=== PATIENT | male | born 1970 | race Caucasian/White ===

== ENCOUNTER 2022-06-18 08:38 | Outpatient (CLI) | payer OTHER, SELFPAY ==
--- OUTSIDE RECORDS SUMMARY | 2022-06-18 08:41 | XMS_ITS | Encounter Summary ---
:1970 Author Organization [facility] Address [address] [place] [address] Care Team Providers Name Role Phone Unavailable Primary Care Provider Unavailable Reason for Visit Reason Comments Chest Pain Associated with pain in his left Flank area and nausea without emesis Encounter Details Date Type Department Care Team Description 08/25/2017 Emergency [place] Emergency Uri Owen Chest Wall Department Hardy Esquivel (Primary Dx) [address] [place] [phone] Social History Tobacco Use Types Packs/Day Years Used Date Smoking Tobacco: Never Smokeless Tobacco: Never Sex Assigned at Date Recorded Not on file documented as of this encounter Last Filed Vital Signs Vital Sign Reading Time Taken Comments Blood Pressure 126/85 08/25/2017 3:22 PM MEDICAL AIDE Pulse 63 08/25/2017 3:22 PM MEDICAL AIDE Temperature 37.2 ??C (99 ??F) 08/25/2017 3:22 PM MEDICAL AIDE Respiratory Rate 20 08/25/2017 3:22 PM MEDICAL AIDE Oxygen Saturation 97% 08/25/2017 3:15 PM MEDICAL AIDE Inhaled Oxygen Concentration - - Weight 102 kg (225 lb) 08/25/2017 12:41 PM MEDICAL AIDE Height 182.9 cm (6') 08/25/2017 12:41 PM MEDICAL AIDE Body Mass Index 30.52 08/25/2017 12:41 PM MEDICAL AIDE documented in this encounter Discharge Instructions Discharge InstructionsUri Owen M.D. - 08/25/2017 3:10 PM MEDICAL AIDE Return to the ED for Chest pain associated with shortness of breath or lightheadedness. CAL AIDE AttachmentsThe following attachments cannot be sent through Care Everywhere. Nonspecific Chest Pain, [id number] (Afghan)documented in this encounter Medications at Time of Discharge Medication Sig Dispensed Refills Start Date End Date albuterol (for_PROVENTIL Inhale 2 puffs. 0 2016 HFA,VENTOLIN HFA) 90 mcg/actuation inhaler amLODIPine (for_NORVASC) 5 Take 5 mg by mouth. 0 04/29/2017 mg tablet fluticasone (for_FLONASE) 50 2 sprays. 0 017 mcg/actuation nasal spray fluticasone-salmeterol Inhale 1 puff. 0 7 (for_ADVAIR DISKUS) 250-50 mcg/dose diskus inhaler lisinopril Take 20 mg by 0 05/27/2017 (for_PRINIVIL,ZESTRIL) 20 mg mouth. tablet MAGNESIUM ORAL Take 250 mcg by 0 mouth daily. methylphenidate HCl Chew 5 mg. 0 01/21/2015 (METHYLIN) 5 mg tablet,chewable sertraline (for_ZOLOFT) 50 Take 50 mg by 0 2015 mg tablet mouth. triamterene-hydroCHLOROthiaz Take by mouth. 0 yan (for_DYAZIDE) 37.5-25 mg per capsule documented as of this encounter ED Notes Uri Owen M.D. - 08/25/2017 1:00 PM CST SUBJECTIVE CHIEF COMPLAINT/REASON FOR VISIT Chest Pain (Associated with pain in his left Flank area and nausea without emesis) HISTORY OF PRESENT ILLNESS HPI Patient complains of nausea associated with some back pain starting this morning upon waking up around 0700 hours. By 8 o'clock he noted the pain was persisting in the back but the nausea had improved.He denies any associated shortness of breath no diaphoretic spells syncope or chest pain. Pain does radiate toward the right shoulder blade. There is no emesis no hematemesis or melena. Denies dysuria frequency or gross hematuria. Current medication list is reviewed. Past medical history notable for hypertension and history of hiatal hernia. Past surgeries: Status post Robert fundoplication for hiatal hernia repair. Status post partial colectomy for ruptured diverticulum. Status post appendectomy. Social history no smoking. Family history: Second-degree relatives with diabetes and heart disease. REVIEW OF SYSTEMS Constitutional: Negative for activity change, chills, diaphoresis, fatigue, fever and unexpected weight change. HENT: Negative for ear pain, hearing loss, nosebleeds, postnasal drip, sore throat and voice change. Eyes: Negative for pain, discharge and visual disturbance. Respiratory: Negative for cough, hemoptysis, chest tightness, orthopnea, shortness of breath, wheezing and stridor. Cardiovascular: Negative for chest pain, palpitations and leg swelling. Gastrointestinal: Positive for nausea. Negative for abdominal pain, anal bleeding, constipation, diarrhea and hematemesis. Endocrine: Negative for cold intolerance, heat intolerance, polydipsia, polyphagia and polyuria. Genitourinary: Negative for dysuria, enuresis, flank pain, frequency, hematuria and urgency. Musculoskeletal: Negative for arthralgias, joint swelling, myalgias and neck stiffness. Skin: Negative for itching, lesions, rash and wound. Allergic/Immunologic: Negative for environmental allergies, food allergies and immunocompromised state. Neurological: Negative for tremors, seizures, speech difficulty, weakness, numbness, headaches and loss of balance. Hematological: Negative for adenopathy. Does not bruise/bleed easily. Psychiatric/Behavioral: Negative for confusion, depression, hallucinations, homicidal ideas and substance abuse. The patient is not nervous/anxious. OBJECTIVE Initial Vitals [08/25/17 1238] Temperature Pulse Rate Heart Rate Resp Rate Blood Pressure SpO2 36.6 ??C 65 -- 20 123/80 100 % Pain Score 7 PHYSICAL EXAMINATION Constitutional: He appears well-developed and well-nourished. He appears not listless and not lethargic. No distress. HENT: Head: Normocephalic and atraumatic. Nose: Nose normal. No nasal discharge. Mouth/Throat: Oropharynx is clear and moist. Mucous membranes are dry. Eyes: Conjunctivae and EOM are normal. Pupils are equal, round, and reactive to light. Right eye exhibits no discharge. Left eye exhibits no discharge. Neck: Normal range of motion. Neck supple. No JVD present. No neck adenopathy. No tracheal deviationpresent. Cardiovascular: Normal rate, regular rhythm, S1 normal and S2 normal. Exam reveals no friction rub. Pulses are strong and palpable. No murmur heard.Capillary refill: takes less than 3 seconds, Pulmonary/Chest: Effort normal and breath sounds normal. There is normal air entry. No stridor. No tachypnea. No respiratory distress. He has no wheezes. He has no rales. He exhibits no retraction. Abdominal: Scaphoid and soft. Bowel sounds are normal. He exhibits no distension and no mass. There is no hepatosplenomegaly. There is no tenderness. There is no rebound and no guarding. No hernia. Musculoskeletal: He exhibits no edema, tenderness or deformity. Neurological: He has normal reflexes. No cranial nerve deficit. He exhibits normal muscle tone. Coordination normal. Skin: Skin is warm, dry, intact and normal color. He is not diaphoretic. Psychiatric: He has a normal mood and affect. His behavior is normal. Judgment and thought content normal. ASSESSMENT/PLAN Chest Pain: Noncardiac-musculoskeletal. Hypertension: Controlled. ED Course as of Aug 25 1506 Fatou Aug 25, 2017 1351 DX Chest AP or PA and Lateral 2 Views 1405 The patient's 1st past evaluation for chest and back pain is essentially negative having reviewed CBC, troponin, basic metabolic panel and hepatic profile, ECG and PA lateral chest x-ray. A repeattroponin and ECG after 90 minutes has been ordered. 1505 Second cardiac panel screen is negative. No new symptoms reported. Overall patient's risk for acute coronary syndrome is assessed as low probability. He is stable for discharge. Disposition: Patient is stable for discharge and also stable for use of nonsteroidal anti-inflammatory medication as needed for pain. He has previous prescription for this purpose. He is to follow up with his regular physician 7- 10 days if symptoms have not improved. Return to the emergency departmentfor uncontrolled chest pain, shortness of breath or weakness. Uri Owen M.D. 08/25/17 1508 CAL AIDE documented in this encounter Plan of Treatment Not on filedocumented as of this encounter Procedures Procedure Name Priority Date/Time Associated Comments Diagnosis TROPONIN T, 5TH STAT 08/25/2017 2:35 Results f or this GEN, P PM MEDICAL AIDE procedure are i n the results section. ECG STAT 08/25/2017 2:33 Results for this PM MEDICAL AIDE procedure are i n the results section. DX CHEST AP OR PA RAD - Semiurgent 08/25/2017 1:18 Res ults for this AND LATERAL 2 (Fast; most ED PM MEDICAL AIDE procedure ar e in VIEWS patients; some the results inpatients) section. ECG STAT 08/25/2017 12:55 Results for this PM MEDICAL AIDE procedure are i n the results section. TROPONIN T, STAT 08/25/2017 12:54 Results for this BASELINE, 5TH PM MEDICAL AIDE procedure are in GEN, P the results section. CBC WITH STAT 08/25/2017 12:54 Results for this DIFFERENTIAL, B PM MEDICAL AIDE procedure ar e in the results section. BASIC METABOLIC STAT 08/25/2017 12:54 Results for this PANEL, S/P PM MEDICAL AIDE procedure are i n the results section. HEPATIC FUNCTION STAT 08/25/2017 12:52 Results for this PANEL, S PM MEDICAL AIDE procedure are i n the results section. documented in this encounter Results Troponin T (08/25/2017 2:35 PM MEDICAL AIDE) athologist Signature Troponin T, S <0.01 <0.01 ng/mL 08/25/2017 [facility] 3:00 PM [facility] Comment: Biotin has been identified by the dana hogue as a potential interfering substance. ??Higher concentr ations of biotin may be found in multivitamins, hair/nail supple ments, and workout supplements. ??If the result does not [facility] clinical observations, repeat testing after patient refrains fr om the use of supplements for at least 12 hours. Specimen Anatomical Collection Method Collection Time Receive d Time (Source) Location / / Volume Laterality Blood (Blood, 08/25/2017 2:35 PM 08/25/20 17 2:39 Venous) MEDICAL AIDE PM MEDICAL AIDE Uri Owen M.D. LAB BLOOD ADD-ON Performing Organization Address City/State/ZIP Code Phon e Number [place] [id number] [place] [address] [facility] ECG 12 Lead (08/25/2017 2:33 PM MEDICAL AIDE) [facility] gist Method Time Signature Ventricular 56 BPM MUSE Rate ECG/Min [place] Interval 186 ms MUSE QRSD Interval 110 ms MUSE QT Interval 416 ms MUSE QTC Interval 401 ms MUSE P [place] 26 degrees MUSE R [place] 5 degrees MUSE T Wave [place] 33 degrees MUSE Clinical Sinus bradycardia MUSE Diagnosis Otherwise normal ECG When compared with ECG of 25-AUG-2017 12:55, No significant change was found Specimen Anatomical Collection Method Collection Time Receive d Time (Source) Location / / Volume Laterality 08/25/2017 2:33 PM 7 2:39 MEDICAL AIDE PM MEDICAL AIDE Narrative This result has an attachment that is no t available. Uri Owen M.D. ECG ORDERABLES Performing Organization Address City/State/ZIP Code Phon e Number MUSE MUSE NA DX Chest AP or PA and Lateral 2 Views (08/25/2017 1:18 PM MEDICAL AIDE) Anatomical Region Laterality Modality Chest N/A Digital Radiography Specimen (Source) Anatomical Collection Method Collection Time Re ceived Time Location / / Volume Laterality 08/25/2017 1:22 PM MEDICAL AIDE Impressions 08/25/2017 1:22 PM MEDICAL AIDE IMPRESSION: No active cardiopulmonary di sease. Narrative 08/25/2017 1:22 PM MEDICAL AIDE EXAM: DX CHEST AP OR PA AND LATERAL 2 VIEWS COMPARISON: None FINDINGS: Bony thorax is unremarkable. H eart size and pulmonary vascularity are within normal limits. Lungs are clear of infiltrates or effusions. Procedure Note Gigi Richmond Jr., M.D. - 2016 EXAM: DX CHEST AP OR PA AND LATERAL 2 EWS COMPARISON: None FINDINGS: Bony thorax is unremarkable. H eart size and pulmonary vascularity are within normal limits. Lungs are clear of infiltrates or effusions. IMPRESSION: No active cardiopulmonary di sease. Uri Owen M.D. IMG DIAGNOSTIC IMAGING PROCE [facility] ECG 12 Lead (08/25/2017 12:55 PM MEDICAL AIDE) [facility] Method Time Signature Ventricular 59 BPM MUSE Rate ECG/Min [place] Interval 180 ms MUSE QRSD Interval 108 ms MUSE QT Interval 408 ms MUSE QTC Interval 403 ms MUSE P [place] 33 degrees MUSE R [place] 29 degrees MUSE T Wave [place] 39 degrees MUSE Clinical Sinus bradycardia MUSE Diagnosis Otherwise normal ECG No previous ECGs available Specimen Anatomical Collection Method Collection Time Receive d Time (Source) Location / / Volume Laterality 08/25/2017 12:55 08/25/2017 1:31 PM MEDICAL AIDE PM MEDICAL AIDE Narrative This result has an attachment that is no t available. Uri Owen M.D. ECG ORDERABLES Performing Organization Address City/State/ZIP Code Phon e Number [place] NA Troponin T, Baseline (08/25/2017 12:54 PM MEDICAL AIDE) athologist Signature Troponin T, S <0.01 <0.01 ng/mL 08/25/2017 [facility] 1:32 PM [facility] Comment: Biotin has been identified by the dana hogue as a potential interfering substance. ??Higher concentr ations of biotin may be found in multivitamins, hair/nail supple ments, and workout supplements. ??If the result does not [facility] clinical observations, repeat testing after patient refrains fr om the use of supplements for at least 12 hours. Specimen Anatomical Collection Method Collection Time Receive d Time (Source) Location / / Volume Laterality Blood (Blood, 08/25/2017 12:54 08/25/2017 1:32 Venous) PM MEDICAL AIDE PM MEDICAL AIDE Uri Owen M.D. LAB BLOOD TROPONIN Performing Organization Address City/[facility]/ZIP Code Phon e Number [address] [address] [facility] CBC with Differential (08/25/2017 12:54 PM MEDICAL AIDE) athologist Signature Hemoglobin 14.6 13.2 - 08/25/2017 [facility] 16.6 g/dL 1:11 PM [facility] Hematocrit 42.8 38.3 - 08/25/2017 [facility] 48.6 % 1:11 PM [facility] Erythrocytes 4.67 4.35 - 08/25/2017 [facility] 5.65 1:11 PM [facility] x10(12)/L [facility] MCV 91.6 78.2 - 08/25/2017 [facility] 97.9 fL 1:11 PM [facility] RBC Distrib Width 12.8 11.8 - 08/25/2017 [facility] 14.5 % 1:11 PM [facility] Platelet Count 266 135 - 317 08/25/2017 [facility] x10(9)/L 1:[address] [facility] Leukocytes 6.4 3.4 - 9.6 08/25/2017 [facility] x10(9)/L 1:[address] [facility] Neutrophils 4.11 1.56 - 08/25/2017 [facility] 6.45 1:11 PM [facility] x10(9)/L [facility] Lymphocytes 1.47 0.95 - 08/25/2017 [facility] 3.07 1:11 PM MEDICAL AIDE HEALTH x10(9)/L [facility] Monocytes 0.65 0.26 - 08/25/2017 [facility] 0.81 1:11 PM MEDICAL AIDE [facility] x10(9)/L [facility] Eosinophils 0.11 0.03 - 08/25/2017 [facility] 0.48 1:11 PM [facility] x10(9)/L [facility] Basophils 0.04 0.01 - 08/25/2017 [facility] 0.08 1:11 PM [facility] x10(9)/L [facility] Specimen Anatomical Collection Method Collection Time Receive d Time (Source) Location / / Volume Laterality Blood (Blood, 08/25/2017 12:54 08/25/2017 1:05 Venous) PM MEDICAL AIDE PM MEDICAL AIDE Uri Owen M.D. LAB BLOOD ADD-ON Performing Organization Address City/State/ZIP Code Phon e Number [address] [address] [facility] (ABNORMAL) BMP (Basic Metabolic Panel) (08/25/2017 12:54 PM MEDICAL AIDE) P athologist Signature Potassium, S 4.8 3.6 - 5.2 08/25/2017 [facility] mmol/L 1:[address] [facility] Sodium, S 138 135 - 145 08/25/2017 [facility] mmol/L 1:31 PM [facility] Chloride, S 96 (L) 98 - 107 08/25/2017 [facility] mmol/L 1:31 PM [facility] Bicarbonate, S 28 22 - 29 08/25/2017 [facility] mmol/L 1:31 PM [facility] Anion Gap 14 7 - 15 08/25/2017 [facility] 1:31 PM [facility] BUN (Blood Urea 21 8 - 24 08/25/2017 [facility] Nitrogen), S mg/dL 1:31 PM [facility] Creatinine 1.15 0.74 - 08/25/2017 [facility] 1.35 mg/dL 1:31 PM [facility] eGFR 75 >=60 08/25/2017 [facility] Non-Black/Afric mL/min/BSA 1:32 PM [facility] EM- an [facility] Comment: ----ADDITIONAL INFORMATION---- Estimated GFR calculated using the 2009 CKD_EPI creatinine equation. eGFR Black/ 87 >=60 mL/min/BSA 08/25/2017 1:32 PM [facility] Comment: ----ADDITIONAL INFORMATION---- Estimated GFR calculated using the 2009 CKD_EPI creatinine equation. Calcium, Total, S 9.8 8.9 - 10.1 mg/dL 08/25/2017 1 :31 PM [facility] Glucose, S 97 70 - 140 mg/dL 08/25/2017 1:31 PM [facility] Specimen Anatomical Collection Method Collection Time Receive d Time (Source) Location / / Volume Laterality Blood (Blood, 08/25/2017 12:54 08/25/2017 1:05 Venous) PM [facility] PM MEDICAL AIDE Uri Owen M.D. LAB BLOOD ADD-ON Performing Organization Address City/State/ZIP Code Phon e Number [facility] [address] [place] [address] [facility] (ABNORMAL) Hepatic Function Panel (08/25/2017 12:52 PM MEDICAL AIDE) [facility] Method Time Signature Bilirubin, Total, S 0.8 <=1.2 08/25/2017 [facility] mg/dL 1:32 PM [facility] Bilirubin, Direct, S <0.2 0.0 - 0.3 08/25/2017 [facility] mg/dL 1:32 PM [facility] Aspartate 33 8 - 48 08/25/2017 [facility] Aminotransferase U/L 1:32 PM [facility] Alanine 58 (H) 7 - 55 08/25/2017 [facility] Aminotransferase U/L 1:32 PM [facility] Alkaline 44 (L) 45 - 115 08/25/2017 [facility] Phosphatase, S U/L 1:32 PM [facility] Albumin, S 4.7 3.5 - 5.0 08/25/2017 [facility] g/dL 1:32 PM [facility] Protein, Total, S 7.6 6.3 - 7.9 08/25/2017 [facility] g/dL 1:32 PM [facility] Specimen Anatomical Collection Method Collection Time Receive d Time (Source) Location / / Volume Laterality Blood (Blood, 08/25/2017 12:52 08/25/2017 1:06 Venous) PM MEDICAL AIDE PM MEDICAL AIDE Uri Owen M.D. LAB BLOOD ADD-ON Performing Organization Address City/State/ZIP Code Phon e Number [facility] [address] [place] [address] [facility] documented in this encounter Visit Diagnoses Diagnosis Pain Chest Wall - Primary documented in this encounter Administered Medications Inactive Administered Medications - up to 3 most recent administrations Medication Order MAR Action Action Date Dose Rate Site sodium chloride 0.9 % injection 10 Given 08/25/2017 12:51 PM MEDICAL AIDE 10 mL mL 10 mL, intravenous, As needed, line care, Starting on Fatou 08/25/17 at 1242, Peripheral Intravenous Catheter and Rapid Infusion Catheter, prior to blood sampling, post blood transfusion or post blood sampling sodium chloride 0.9 % injection 3 mL 3 mL, intravenous, As needed, line care, Starting on Fatou 17 at 1242, Prior to and following infusion and between multi ple consecutive infusions: sodium chloride 0.9 % injection sodium chloride 0.9 % injection 3 mL 3 mL, intravenous, Every 12 hours PRN, l ine care, Starting on Fatou 17 at 1242, Peripheral Intravenous Catheter and Rapi d Infusion Catheter, when no infusion to maintain patency documented in this encounter Active and Recently Administered Medications Times are shown in MEDICAL AIDE. PRN Medication Order 08/23/2017 08/24/2017 08/25/2017 sodium chloride 0.9 % injection 10 mL 1251 (Given - Provider: Carly Candelaria R.N.) 10 mL, intravenous, As needed, line care , Starting on Fatou 08/25/17 at 1242, Peripheral Intravenous Catheter and Rapid Infusion Catheter, prior to blood sampling, post blood transfusion or post blood sampling sodium chloride 0.9 % injection 3 mL 3 mL, intravenous, As needed, line care, Starting on Fatou 08/25/17 at 1242, Prior to and following infusion and between multiple consecutive infusions: sodium chloride 0.9 % injection sodium chloride 0.9 % injection 3 mL 3 mL, intravenous, Every 12 hours PRN, l ine care, Starting on Fatou 08/25/17 at 1242, Peripheral Intravenous Catheter and Rapid Infusion Catheter, when no infusion to maintain patency documented in this encounter
--- OUTSIDE RECORDS SUMMARY | 2022-06-18 08:41 | XMS_ITS | Encounter Summary ---
:1970 Author Organization [facility] Address [address] [place] [address] Care Team Providers Name Role Phone Unavailable Primary Care Provider Unavailable Reason for Visit Physical Therapy (Routine) - Canceled Specialty Diagnoses / Procedures Referred By Contact Refer red To Contact Diagnoses Pain Knee Right Adele Mcdonald P.A. [facility] Procedures PT Ongoing treatment [address] [place] [address] Referral ID Status Reason Start Date Expiration Date Visits V isits Requested Authorized [id number] Canceled 03/13/2021 09/18/2021 99 20 Encounter Details Date Type Department Care Team Description 04/29/2021 Clinical Support Department of Physical Adele Mcdonald, P.ASailaja [address] [place] [address] Pain Knee Right Medicine and David Mcintosh, P.T., D.P.T. Rehabilitation in [place], [place] [address] [place] [phone] Social History Tobacco Use Types Packs/Day Years Used Date Smoking Tobacco: Never Smokeless Tobacco: Never Alcohol Use Standard Drinks/Week Comments Yes 0 (1 standard drink = 0.6 oz pure 2 or m ore mixed drinks every alcohol) evening Alcohol Habits Answer Date Recorded How often do you have a drink Not asked containing alcohol? How many drinks containing alcohol do Not asked you have on a typical day when you are drinking? How often do you have six or more Not asked drinks on one occasion? Comment: 2 or more mixed drinks every 01/29/2019 evening Sex Assigned at Date Recorded Not on file documented as of this encounter Progress Notes David Mcintosh P.T., D.P.T. - 04/29/2021 4:45 PM CDT Physical Therapy Outpatient Treatment Note SUBJECTIVE Patient's Name: Hayden Mckay Referring Provider: Aura Roche Visit Diagnosis: 1. Pain Knee Right Reason for Referral: Right Knee Pain Onset Date: 03/31/21 Payor: [employer] / Plan: [employer] OPEN ACCESS PLUS / Product Type: PPO / PT Next Certification Date: 07/01/21 Epic Visit Count: 6 Patient comments: patient did not have any instances loss of sensation in his right leg following last session. He was able to walk 2-1/2 miles. He is noticing the increases in strength and his recovery time following sessions has decreased. Contact monitoring: PPE used during therapy: Therapist was wearing the following PPE throughout entire session: surgicalmask Patient was wearing a mask during therapy session: yes OBJECTIVE Pain: 0/10 Observation/Inspection: Patient continues to have bilateral externally rotated hips during gait. Ortho Exam Outcome Measures: no formal outcome measure taken. TREATMENT Treatment today consisted of: Therapeutic Exercise: elliptical: Resistance 5 7 minutes Hip adduction: 7.5 plates 30 reps Hip abduction: 7 plates 30 reps Leg extension: 6 plates 30 reps Leg curl: 6 plates 30 reps Leg press: 7.5 plates 30 reps Single leg press: 5 plates 30 reps RDL: 15 lbs 20 reps Rear foot elevated split squat: 10 reps Box Jumps: 20 inch box 10 reps Run and turn: 30 ft x 2 Karaoke: 20 ft x 4 Shuffle: 20 ft x 6 Single Leg Squat: 10 reps Home Exercise Program/Education: No changes made to HEP. Pt reports good compliance with his HEP. Assessment Clinical Impression: Patient continues to demonstrate increased strength. He is able to tolerate increased activity with no increase in pain. He did have loss of sensation at the end of the session today. Discussed the potential cause if it is a cumulation of entire session or the more lateral movements performed. Screened his low back with a quadrant test and results were negative. After the feelingof sensation came had patient lumbar extend and lumbar flex with no relief in symptoms. Patient is appropriate to physical therapy to increase strength. Functional Goals and Timeframes: PT Goal #1: Patient will be able to walk 2 miles with 0/10 pain to return to golfing and outdoor walks. PT Goal #1 Date: 07/01/21 PT Goal #2: Patient will increase functional score to greater than 90%. PT Goal #2 Date: 07/01/21 PT Goal #3: Patient will be able to workout 4 times per week with 0/10 pain in order to increase participation in activities of enjoyment. PT Goal #3 Date: 07/01/21 PT Goal #4: Patient will report 0/10 pain to increase activity. PT Goal #4 Date: 07/01/21 Plan Plan for next session: reverse order of session start with outside agility work and end with weights. Time Spent with Patient Therapeutic Exercise (min): 42 min Time Calculation Total Timed Units (min): 42 min Total Treatment Time (min): 42 min David Mcintosh P.T., D.P.T. Department of Physical Medicine and Rehabilitation in [address] [address] Dept: [phone] documented in this encounter Plan of Treatment Not on filedocumented as of this encounter Visit Diagnoses Diagnosis Pain Knee Right documented in this encounter
--- OUTSIDE RECORDS SUMMARY | 2022-06-18 08:41 | XMS_ITS | Encounter Summary ---
:1970 Author Organization [facility] Address [address] [place] [address] Care Team Providers Name Role Phone Unavailable Primary Care Provider Unavailable Reason for Visit Physical Therapy (Routine) - Canceled Specialty Diagnoses / Procedures Referred By Contact Refer red To Contact Diagnoses Pain Knee Right Adele Mcdonald P.A. [facility] Procedures PT Ongoing treatment [address] [place] [address] Referral ID Status Reason Start Date Expiration Date Visits V isits Requested Authorized [id number] Canceled 03/13/2021 09/18/2021 99 20 Encounter Details Date Type Department Care Team Description 04/06/2021 Clinical Support Department of Physical Adele Mcdonald, P.ASailaja [address] [place] [address] Pain Knee Right Medicine and David Mcintosh, P.T., D.P.T. Rehabilitation in [place], [place] [address] [place] [phone] Social History Tobacco Use Types Packs/Day Years [...] this encounter Progress Notes David Mcintosh P.T., CaesarPSailajaT. - 04/06/2021 9:30 AM CDT Physical Therapy Outpatient Treatment Note SUBJECTIVE Patient's Name: Hayden Mckay Referring Provider: Aura Roche Visit Diagnosis: 1. Pain Knee Right Reason for Referral: Right Knee Pain Onset Date: 03/31/21 Payor: [employer] / Plan: [employer] OPEN ACCESS PLUS / Product Type: PPO / PT Next Certification Date: 07/01/21 Epic Visit Count: 2 Patient comments: Patient is having no knee pain or discomfort today. He was moving furniture up anddown stairs all weekend. This did not increase his pain. He brought in the MRI report today for review. Contact monitoring: PPE used during therapy: Therapist was wearing the following PPE throughout entire session: surgicalmask Patient was wearing a mask during therapy session: yes OBJECTIVE Pain: 0/10 Observation/Inspection: No gait abnormalities present. Ortho Exam TREATMENT Treatment today consisted of: Therapeutic Exercise: Octane Bike: Resistance 6 5 minutes Hip adduction: 5.5 plates 30 reps Hip abduction: 5 plates 30 reps Leg extension: 4 plates 30 reps Leg curl: 4 plates 30 reps Leg press: 5.5 plates 30 reps Single leg press: 3.5 plates 30 reps Squats: 20 reps Single leg stance on BOSU: 30 seconds x2 each leg Heel raise: 30 reps hamstring ball curl: Blue ball 25 reps Hamstring stretch: 10 second hold 5 reps Quad stretch: 10 second hold 5 reps ITB band stretch: 10 second hold 5 reps Access Code: [email or web address] URL: [email or web address] Date: 04/06/2021 Prepared by: Fredrick Crowell Home Exercise Program/Education: Added hamstring stretch, Quad stretch and ITB band stretch to home program. Pt reports good compliance with his HEP. Assessment Clinical Impression: Patient is progressing well. He did not have any discomfort over the weekend heeven with increased activity. Was able to progress the patient with weight machines today. Patient tolerated the exercises well with no increase in pain or discomfort. He was worried about feeling paindiscomfort in his knee later today and throughout the week. Will continue to monitor next session. Patient is appropriate for continued skilled physical therapy to increase strength. Functional Goals [...] Date: 07/01/21 Plan Plan for next session: Continue to progress lower extremity strengthening and weights as able. Consider adding lunges, single leg squats and split squats. Time Spent with Patient Therapeutic Exercise (min): 41 min Time Calculation Total Timed Units (min): 41 min Total Treatment Time (min): 41 min David Mcintosh P.T., D.P.T. Department of Physical Medicine and Rehabilitation in [address] [address] Dept: [phone] documented in this encounter Plan of Treatment Not on filedocumented as of this encounter Visit Diagnoses Diagnosis Pain Knee Right documented in this encounter
--- OUTSIDE RECORDS SUMMARY | 2022-06-18 08:41 | XMS_ITS | Encounter Summary ---
:1970 Author Organization [facility] Address [address] [place] [address] Care Team Providers Name Role Phone Unavailable Primary Care Provider Unavailable Encounter Details Date Type Department Care Team Description 07/11/2013 Hospital Encounter [facility] Crystal Robles P.A.-C., [place] Social History Tobacco Use Types Packs/Day Years Used Date Smoking Tobacco: Never Assessed Sex Assigned at Date Recorded Not on file documented as of this encounter Last Filed Vital Signs Vital Sign Reading Time Taken Comments Blood Pressure 122/80 07/11/2013 7:01 PM CDT Pulse 72 07/11/2013 7:01 PM CDT Temperature - - Respiratory Rate - - Oxygen Saturation - - Inhaled Oxygen Concentration - - Weight 97.2 kg (214 lb 4.6 oz) 07/11/2013 7:01 PM CDT Height 185.4 cm (6' 0.99) 07/11/2013 7:01 PM CDT Body Mass Index 28.28 07/11/2013 7:01 PM CDT documented in this encounter Progress Notes Margot Robles P.A.-C. - 07/11/2013 6:55 PM CDT [id number] CHIEF COMPLAINT/REASON FOR VISIT Dog bite. MEDICATIONS Medication and allergies review documentation in [employer]. HISTORY OF PRESENT ILLNESS Patient comes in today with a dog bite on his right hand and left fifth digit, happened about 30 minutes ago. He did wash his hands real well and then came in today to see if there was anything that needed to be done. It is his dog that bit him. It is in new dog. He says the dog does not know him too well yet. They just gave him his immunizations a couple of weeks ago so he is up-to-date on that and patient is also up to date on his tetanus shot. He has 1 small puncture on the dorsal aspect of the right hand and on the left fifth digit, very small one. He is otherwise feeling well. SYSTEMS REVIEW CONSTITUTIONAL: Negative for fatigue or fever. SKIN: He does have the dog bite on the right hand dorsal aspect and fifth digit dorsal aspect. LYMPH: There is no red streaking. PAST MEDICAL/SURGICAL HISTORY He is generally healthy. He does have some asthma issues and has an Advair Diskus. PHYSICAL EXAMINATION Psych alert and oriented. No acute distress. EXTREMITIES: The left fifth digit he has basically a scratch from a tooth on the dorsal aspect of the finger between the DIP joint and the nail. He has complete range of motion of the finger. Temperature, circulation, motion and sensitivity is intact. That is no longer bleeding. The dorsal aspect of the right hand has a 1cm superficial partial thickness scratch from a tooth. It is pleasantly not bleeding either. He does have a little bit of swelling underneath the bite. He does however have completerange of motion of the hand and fingers. Temperature circulation, motion and sensitivity to all 5 fingers is intact. SKIN: General skin color is pink, warm and dry. IMPRESSION/REPORT/PLAN Minor dog bite right hand, left fifth digit. PLAN: I would like him to soak his hands in warm soapy water twice a day for the next couple of daysand then dry off the skin and apply clean Band-Aids to these 2 area. We will start him on Augmentin 875mg 1 by mouth 2 times a day for 10 days. He is to follow up for any further concerns, although I think we have him protected pretty well with the Augmentin. Patient is in agreement with this plan. Aura Betts/valentina Electronically Signed By: MARGOT ROBLES PA-C On: 07/12/2013 02:33 PM Source: [facility] MHSDOL[facility]IS[facility] Document Id: [id number] documented in this encounter Miscellaneous Notes Miscellaneous - Margot Robles P.A.-C. - 07/11/2013 7:18 PM CDT Ambulatory Depart Summary [facility] - [address] [address] Visit Information Name: DEEHAYDEN RICKS [facility] Number: [id number] Visit Date: 07/11/2013 19:18:53 Attending Provider: MARGOT ROBLES PA-C Primary Care Provider: HAYDEN AMARO has been given the following list of medications: Your Medications It is important to take your medications as directed. Use a pill box or chart to help remind you to take your medications. Please let your doctor or nurse know if you have problems taking your medications. Medication/Strength Dose Route Frequency Indications/Special Instructions/Comments/Notes amoxicillin-clavulanate (Augmentin 875 mg-125 mg oral tablet) 1 tab(s) Oral two times a day for 10 Days fluticasone-salmeterol (Advair Diskus 250 mcg-50 mcg inhalation powder) 1 puff(s) Inhalation two times a day Attention: If you have any medications at home that are not on this list, DO NOT take them until youcontact your provider for clarification. Additional Information: Source: [facility] POWERCHART Document Id: [id number] Miscellaneous - Margot Robles P.A.-C. - 07/11/2013 7:18 PM CDT Ambulatory Patient Summary [facility] - [address] [address] Visit Information Name: STEVIEHAYDEN MENJIVAR [facility] Number: [id number] Current Date: 07/11/2013 19:18:53 Physicians Attending Provider: MARGOT ROBLES PA-C Primary Care Provider: HAYDEN AMARO has been given the following list of follow-up instructions, medication list, and patient education materials: Follow-up Instructions Your Medications Here is a list of your medications. It is important to take your medications as directed. Use a pillbox or chart to help remind you to take your medications. Please let your doctor or nurse know if you have problems taking your medications. Medication/Strength Dose Route Frequency Indications/Special Instructions/Comments/Notes amoxicillin-clavulanate (Augmentin 875 mg-125 mg oral tablet) 1 tab(s) Oral two times a day for 10 Days fluticasone-salmeterol (Advair Diskus 250 mcg-50 mcg inhalation powder) 1 puff(s) Inhalation two times a day Attention: If you have any medications at home that are not on this list, DO NOT take them until youcontact your provider for clarification. Your Allergies & Intolerances Substance Reaction Symptoms Category Comments No Known Medication Allergies Drug Your Problem List Problem Status Onset Comments No Problems found Your Upcoming Appointments Date Time Location Reason Provider No Appointments found Attention: Contact your local Clinic if further appointment detail needed. Your Goals/Additional instructions: Source: [facility] POWERCHART Document Id: [id number] Miscellaneous - Toño Abraca, C.M.A. - 07/11/2013 7:01 PM CDT Adult Chicken Boner Intake/History Adult Chicken Boner Intake/History Entered On: 07/11/2013 19:05 CDT Performed On: 07/11/2013 19:01 CDT by TOÑO ABARCA Intake Chief Complaint : dog bite on R hand, and L 5 digit Onset of Symptoms : today, 30 min ago Temperature Core : 36.8 DegC(Converted to: 98.2 DegF) Peripheral Pulse Rate : 72 /min Systolic Blood Pressure : 122 mmHg Diastolic Blood Pressure : 80 mmHg NIBP Mean : 94 mmHg Height : 185.4 cm(Converted to: 6 ft 1 inch(es), 72.99 inch(es)) Actual Weight : 97.2 kg(Converted to: 214 lb 5 oz) Dosing Weight Clinic : 97.2 kg Clinic BSA : 2.24 Body Mass Index : 28.28 kg/m2 TOÑO ABARCA - 07/11/2013 19:01 CDT General Info Languages : Kyrgyz TOÑO ABARCA - 07/11/2013 19:01 CDT Subjective Pain Symptoms : Yes TOÑO ABARCA - 07/11/2013 19:01 CDT Pain Pain Assessment Grid Pain 1 Location : Hand Laterality : Bilateral (Comment: R hand, and L pinkie [TOÑO ABARCA - 07/11/2013 19:01 CDT] ) TOÑO ABARCA - 07/11/2013 19:01 CDT Dependent Habits Tobacco Use/Currently Using : No Exposure to Tobacco Smoke : Care provider denies smoking in home Smoking Status : Never smoker TOÑO ABARCA - 07/11/2013 19:01 CDT Tobacco Use Grid Last Use : never TOÑO ABARCA - 07/11/2013 19:01 CDT [facility]: [facility]CH[facility] Document Id: [id number] CDT!30 documented in this encounter Plan of Treatment Not on filedocumented as of this encounter Visit Diagnoses Not on filedocumented in this encounter
--- OUTSIDE RECORDS SUMMARY | 2022-06-18 08:41 | XMS_ITS | Encounter Summary ---
:1970 Author Organization [facility] Address [address] [place] [address] Care Team Providers Name Role Phone Unavailable Primary Care Provider Unavailable Reason for Visit Physical Therapy (Routine) - Closed Specialty Diagnoses / Procedures Referred By Contact Refer red To Contact Diagnoses Pain Knee Right Adele Mcdonald, PElizabeth [facility] Procedures PT Evaluate and treat [address] [place] [address] Referral ID Status Reason Start Date Expiration Date Visits Requ ested Visits Authorized [id number] Closed 03/13/2021 03/13/2022 1 1 Encounter Details Date Type Department Care Team Description 03/31/2021 Comprehensive Visit Department of Physical Ailab Santino chapin M.D. [address] [place] [address] Pain Knee Right Medicine and David Mcintosh, P.T., D.P.T. (Primary Dx) Rehabilitation in [place], [place] [address] [place] [phone] Social History Tobacco Use Types Packs/Day Years [...] on file documented as of this encounter Consult Notes David Mcintosh P.T., CaesarPSailajaT. - 03/31/2021 1:30 PM CDT Physical Therapy Outpatient Evaluation/Treatment Physician Signature: Date Print Name: Time: By co-signing this note, the provider certifies the therapy being provided to this patient is reasonable and necessary for the diagnosis or treatment of this patient. SUBJECTIVE Patient's Name: Hayden Mckay Referring Provider: Aura Roche Visit Diagnosis: 1. Pain Knee Right Reason for Referral: Right Knee Pain Onset Date: 03/31/21 Payor: RHONDA / Plan: Metaps OPEN ACCESS PLUS / Product Type: PPO / Epic Visit Count: 1 PERTINENT MEDICAL / SURGICAL HISTORY: Patient Active Problem List Diagnosis ??? Asthma NOS Past Surgical History: Procedure Laterality Date ??? APPENDECTOMY ??? PARTIAL RESECTION OF COLON 2015 ??? VASECTOMY Diagnostic Tests: MRI Hayden Mckay is a 50 y.o. male who presents to outpatient physical therapy for evaluation. Hissymptoms consist of: 1. Pain 2. Difficulty with stairs 3. Unable to sit for extended periods of time 4. Unable to ambulate for extended periods of time Overall he reports his status remains the same. History of Present Illness:Patient is a pleasant 50 year old male presenting to Physical Therapy with right knee pain. He tore both meniscus 5 years ago and has dealt with on and off flare up pain since then. Recently, pain has been constant for about a month. He went the doctor and received an MRI which showed his tear had increased. When the incident initially occurred his knee was swollen and he couldn't perform a straught leg raise. The swelling has gone down but pain persists. His knee will continue to become stiff and it cause him difficulty driving. He will require assistance to move his knee to and from the gas and break while driving during a flare up. Notices pain more when he is walkingand sitting for prolonged periods. Stairs have been difficulty. Ibuprofen relieves pain. He enjoys working out but has not been able to due to pain. He usually walks a mile or 2 but pain has limited this. He has back pain but believes it is due to him overprotecting his right knee. Cannot perform lunges or burpees without pain. He has no history of surgeries in his hips, knee or ankles. He did sprainhis right ankle in 2015. 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 Lives at home with his and 2 daughters. Has 2 separate flights of 12 steps. 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 Aggravating Factors: Sitting and standing for long periods of time. Stairs, lunges and burpees. Relieving Factors: Rest, ibuprofen. 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 Contact monitoring: PPE used during therapy: Therapist was wearing the following PPE throughout entire session: surgicalmask Patient was wearing a mask during therapy session: yes OBJECTIVE REVIEW OF SYSTEMS History obtained from the patient PHYSICAL EXAM Pain: Pain Assessment Pain Assessment: 0-10 Numeric Pain Intensity Scale Pain Score: 4 Pain Type: Acute pain Pain Location: Knee Pain Orientation: Right Observation/Inspection: When standing patient has increased external rotation from his hips. Knees tend to go into valgus positioning with squats and lunges. Gait/Stairs: No gait abnormalities noted. Valgus knee movement with stairs Palpation: No increased tenderness to palpation and no increased muscle tone noted. Range of Motion: AROM Assessment AROM Assessment: LLE RLE AROM (degrees) R Knee Flexion 0-140: 140 R Knee Extension 0-130: 0 LLE AROM (degrees) L Knee Flexion 0-140: 140 L Knee Extension 0-130: 0 Strength:Strength Assessment Strength Assessment: LLE RLE Strength R Hip Flexion: 4/5 R Hip Extension: 4/5 R Hip ABduction: 4/5 R Hip ADduction: 5/5 R Knee Flexion: 5/5 R Knee Extension: 4/5 R Ankle Dorsiflexion: 4/5 R Ankle Plantar Flexion: 5/5 LLE Strength L Hip Flexion: 4/5 L Hip Extension: 4/5 L Hip ABduction: 4/5 L Hip ADduction: 5/5 L Knee Flexion: 5/5 L Knee Extension: 5/5 L Ankle Dorsiflexion: 5/5 L Ankle Plantar Flexion: 5/5 Special Tests: Valgus Stress Test: Negative Varus Stress Test: Negative Neptali's Test: Negative Bounce Home: Negative Ortho Exam Outcome Measures: Measures - Tools Knee Injury and Osteoarthritis Outcome Score Joint Replacement (KOOS JR) Stiffness How severe is your knee stiffness after first wakening in the morning?: Mild Pain Twisting/pivoting on your knee: Moderate Straightening knee fully: Mild Going up or down stairs: Moderate Standing upright: None Function, daily living Rising from sitting: Mild Bending to floor/spanish moss picker an object: Mild Scores Raw summed score: 8 Total Interval Score: 65.994 Interpretation of scores Scores are transformed to a 0-100 scale, with zero representing extreme knee problems and 100 representing no knee problems as common in orthopaedic scales and generic measures. Scores between 0 and 100 represent the percentage of total possible score achieved. Cognition Arousal/Alertness: Appropriate responses to stimuli Attention: Addressed, no concerns noted Safety/Judgment: Addressed, no concerns noted TREATMENT Treatment today consisted of: Therapeutic Exercise: Knee Extension: Green Theraband 20 reps Lateral Band Walks: 30 steps Forward and Backward Band Walks: 30 steps Step Up ascendin reps Step Up Descendin reps Access Code: [email or web address] URL: [email or web address] Date: 03/31/2021 Prepared by: Fredrick Crowell Home Exercise Program/Education: Home exercise program given consisting of exercises listed above. Assessment Clinical Impression: Mr. Mckay presents to physical therapy with signs and symptoms consistent with Right knee pain. Impairments: Pain and slight lower extremity weakness. Functional deficits: Difficulty with stairs, prolonged ambulation and prolonged standing. Difficultywith workouts. Rehab Potential: Mr. Mckay has Excellent potential to achieve established physical therapy goalswithin the time frame outlined below, provided he actively participates in his physical therapy treatment plan and home program. Comorbid Conditions: None Personal Factors: Age Clinical Presentation: Stable Examination elements: 1-2 Clinical Decision Making: Low complexity clinical decision making Functional Goals and Timeframes: PT Outpatient Goals PT Goal #1: Patient will be able [...] activity. PT Goal #4 Date: 07/01/21 Plan Mr. Mckay was educated regarding evaluative findings, diagnosis, prognosis, potential risks and benefits of rehabilitation interventions. A collaborative effort was used to establish goals and planof care. He was informed of his right to make decisions regarding his care, including refusal of examination or treatment or selection of services from another provider if desired. The treatment plan may be progressed or modified based upon his response to treatment. Physical Therapy Attestation Statement: Patient agrees with the plan of care and goals. Treatment Plan: Plan: Plan of care initiated Start of Plan of Care: 03/31/2021 PT Next Certification Date: 07/01/21 Number of Visits:6 visits PT Duration: 90 days PT Frequency: PT Frequency: 2 times per week Treatment interventions may include: Treatment/Interventions: Therapeutic exercise, Therapeutic functional activity, Neuromuscular re-education Plan for next session: Add hamstring and quad stretches to home program. Progress to closed chain single leg lunges, split squats and reverse lunges as able. Add weight machines in gym. Elliptical. Time Spent with Patient PT Evaluation (min): 32 min Therapeutic Exercise (min): 19 min Time Calculation Total Timed Units (min): 19 min Total Treatment Time (min): 51 min David Mcintosh P.T., D.P.T. Department of Physical Medicine and Rehabilitation in [address] [address] Dept: [phone] documented in this encounter Plan of Treatment Not on filedocumented as of this encounter Visit Diagnoses Diagnosis Pain Knee Right - Primary documented in this encounter
--- OUTSIDE RECORDS SUMMARY | 2022-06-18 08:41 | XMS_ITS | Encounter Summary ---
:1970 Author Organization [facility] Address [address] [place] [address] Care Team Providers Name Role Phone Unavailable Primary Care Provider Unavailable Encounter Details Date Type Department Care Team Description 09/04/2012 Hospital Encounter HX NO MAPPING Jo Richardson F.NSamy [address] [place], [place] [address] (Wo rk) Social History Tobacco Use Types Packs/Day Years Used Date Smoking Tobacco: Never Assessed Sex Assigned at Date Recorded Not on file documented as of this encounter Plan of Treatment Not on filedocumented as of this encounter Procedures Procedure Name Priority Date/Time Associated Diagnosis Comme nts RAPID STREP A Routine 09/04/2012 7:37 PM Results for this SCREEN MINING SPECULATOR procedure are i n the results section. documented in this encounter Results Rapid Strep A Screen (09/04/2012 7:37 PM MINING SPECULATOR) [facility] Method Time Signature HXRapid Strep POWERCHART Confirmation HXPre Negative for POWERCHART Group A Strep by culture. HXFinal Negative for POWERCHART Group A Strep by culture. Specimen (Source) Anatomical Collection Method Collection Time Re ceived Time Location / / Volume Laterality Throat 09/04/2012 7:37 PM MINING SPECULATOR Jo Richardson F.N.PSailaja LAB MICROBIOLOGY - GENERAL O RDERABLES Performing Organization Address City/State/ZIP Code Phon e Number POWERCHART documented in this encounter Visit Diagnoses Not on filedocumented in this encounter
--- OUTSIDE RECORDS SUMMARY | 2022-06-18 08:41 | XMS_ITS | Encounter Summary ---
:1970 Author Organization [facility] Address [address] [place] [address] Care Team Providers Name Role Phone Unavailable Primary Care Provider Unavailable Reason for Visit Reason Onset Date Comments Outpatient COVID-19 Testing 05/15/2020 Encounter Details Date Type Department Care Team Description 05/15/2020 External Outreach Department of [facility] (Primary [place], C.N.P., D.N.P. Dx) [place] [address] [address] [facility] [address] [place] [phone] Social History Tobacco Use Types Packs/Day Years [...] documented as of this encounter Progress Notes Patricia Pierre R.MElizabeth - 05/15/2020 10:09 AM CDT Encounter created for the drive-through COVID-19 testing. documented in this encounter Plan of Treatment Not on filedocumented as of this encounter Procedures Procedure Name Priority Date/Time Associated Diagnosis Comme nts SARS CORONAVIRUS-2 Routine 05/15/2020 10:46 AM Infection Upper Results for this RNA, V CDT Respiratory procedure are i n the results section. documented in this encounter Results SARS Coronavirus-2 RNA, V Symptomatic (05/15/2020 10:46 AM CDT) [facility] Method Time Signature SARS-CoV-2 Swab, 05/15/2020 [facility] Specimen Nasopharynx 11:01 PM Source CDT SARS CoV-2 Undetected Undetected 05/15/2020 [facility] RNA, TMA 11:01 PM CDT Comment: SARS-CoV-2 RNA absent. This result does not rule out COVID-19 in the patient, as the sensitivity of the test depends o n the timing of the specimen collection and the quality of the specim en. Result should be correlated with patient's history and clinical presentat ion. ----ADDITIONAL INFORMATION---- This test is performed using the Aptima SARS-CoV-2 assay ([employer] which has received Emergency Use Authori zation (EUA) by the U.S. Food and Drug Administration. Fact sheets for this Emergency Use Autho rization (EUA) assay can be found at the following links: For Healthcare Providers: https://www.fd a.gov/media/676206/download For Patients: https://www.fda.gov/media/ 635053/download Specimen Anatomical Collection Method Collection Time Receive d Time (Source) Location / / Volume Laterality Varies 05/15/2020 10:46 05/15/2020 3:25 (Nasopharynx) AM CDT PM CDT Moira Lay APRN, C.N.P., D.N.P. LAB [facility] OLOGY - GENERAL ORDERABLES Performing Organization Address City/State/ZIP Code Phon e Number [facility]- [address] [place] [id number] [place] [address] [address] documented in this encounter Visit Diagnoses Diagnosis Infection Upper Respiratory - Primary documented in this encounter Additional Health Concerns Infection Onset Date Last Indicated Resolved Time COVID19 Pending 05/15/2020 05/15/2020 05/15/2020 11:01 PM CDT documented as of this encounter
--- OUTSIDE RECORDS SUMMARY | 2022-06-18 08:41 | XMS_ITS | Encounter Summary ---
:1970 Author Organization [facility] Address [address] [place] [address] Care Team Providers Name Role Phone Unavailable Primary Care Provider Unavailable Encounter Details Date Type Department Care Team Description 12/19/2020 Orders Only [facility] Eliecer Chiu Jr., M.D. [address] [place], [place] [address]andrés [place] [phone] (Wo rk) Social History Tobacco Use Types [...]
--- OUTSIDE RECORDS SUMMARY | 2022-06-18 08:41 | XMS_ITS | Encounter Summary ---
:1970 Author Organization [facility] Address [address] [place] [address] Care Team Providers Name Role Phone Unavailable Primary Care Provider Unavailable Reason for Visit Physical Therapy (Routine) - Canceled Specialty Diagnoses / Procedures Referred By Contact Refer red To Contact Diagnoses Pain Knee Right Adele Mcdonald P.A. [facility] Procedures PT Ongoing treatment [address] [place] [address] Referral ID Status Reason Start Date Expiration Date Visits V isits Requested Authorized [id number] Canceled 03/13/2021 09/18/2021 99 20 Encounter Details Date Type Department Care Team Description 05/06/2021 Clinical Support Department of Physical Adele Mcdonald, P.ASailaja [address] [place] [address] Pain Knee Right Medicine and Sherron Paul, P.T., D.P.T. Rehabilitation in [place], [place] [address] [place] [phone] Social History Tobacco Use Types Packs/Day Years [...] documented as of this encounter Progress Notes Sherron Paul P.T., D.P.T. - 05/06/2021 4:45 PM CDT Physical Therapy Outpatient Treatment Note SUBJECTIVE Patient's Name: Hayden Mckay Referring Provider: Aura Roche Visit Diagnosis: 1. Pain Knee Right Reason for Referral: Right Knee Pain Onset Date: 03/31/21 Payor: thesweetlink / Plan: thesweetlink OPEN ACCESS PLUS / Product Type: PPO / PT Next Certification Date: 07/01/21 Epic Visit Count: 7 Patient comments: Patient has no had any increased pain or discomfort following last session. He didhave decreased sensation following last session and that resolved on it own later that evening. He has no been as active this week with walking. Contact monitoring: PPE used during therapy: Therapist was wearing the following PPE throughout entire session: surgicalmask and eye protection Patient was wearing a mask during therapy session: yes OBJECTIVE Pain: 0/10 Observation/Inspection: No acute change to patient gait. Ortho Exam Outcome Measures: No formal outcome measure taken today. TREATMENT Treatment today consisted of: Therapeutic Exercise: Elliptical: Resistance 5 7 minutes [place] ft x 4 Run and turn: 20 ft x 4 Hip Adduction: 8.0 plates 30 reps Hip Abduction: 7.5 plates 30 reps Leg Extension: 6.5 plates 30 reps Leg Curl: 6.5 plates 30 reps Leg Press: 8.0 plates 30 reps Single Leg Press: 6.0 plates 30 reps Home Exercise Program/Education: No changes made to HEP Pt reports good compliance with his HEP. Assessment Clinical Impression: Patient performed more lateral movements and running initially in the session. Immediately, described decreased sensation in his right lower extremity. He was still able to progress his strength by increasing resistance. Determined cause of decreased sensation to be lateral movements. Patient decreased sensation was improved with lumbar flexion. Discussed potential cause of decreased sensation to be coming from patient low back. Instructed patient to follow up with physician to discuss and determine appropriate treatment plan. Patient will follow up once he has scheduled appoint ment with physician. Functional Goals and Timeframes: PT Goal #1: [...] Date: 07/01/21 Plan Plan for next session: Patient is going to return to physician will follow up in a few weeks to giveupdate on potential return to PT. Time Spent with Patient Therapeutic Exercise (min): 38 min Time Calculation Total Timed Units (min): 38 min Total Treatment Time (min): 38 min Physical Therapy Discharge Summary: 06/09/2021 At last visit, patient's knee was performing better with no pain. He was experiencing sensation changes in his from his knee to his foot. Decided this was most likely not caused by his knee and told patient to return to Physician for follow up. Patient was instructed to contact if he required PT services as a new order may be needed. Patient has not followed up and at this time will be formally discharged from PT. Patient was seen from 03/31/2021 to 05/06/2021 for a total of 7 visits. Interventions provided in therapeutic exercise and neuromuscular reeducation. Patient will require a new order to return to PT. Sherron Paul P.T., Tahir.P.T. Department of Physical Medicine and Rehabilitation in [address] [address] Dept: [phone] documented in this encounter Miscellaneous Notes Addendum Note - Sherron Paul P.T., Tahir.P.T. - 05/06/2021 4:45 PM CDT Addended by: SHERRON PAUL on: 06/09/2021 01:24 PM Modules accepted: Orders documented in this encounter Plan of Treatment Not on filedocumented as of this encounter Visit Diagnoses Diagnosis Pain Knee Right documented in this encounter
--- OUTSIDE RECORDS SUMMARY | 2022-06-18 08:41 | XMS_ITS | Encounter Summary ---
:1970 Author Organization [facility] Address [address] [place] [address] Care Team Providers Name Role Phone Unavailable Primary Care Provider Unavailable Reason for Visit Reason Comments COVJANESSA Nurse Line Encounter Details Date Type Department Care Team Description 05/15/2020 Clinical Communication Division of ALICE Min Nurse [facility] [place] [facility] [address] [facility] in [facility] [address] [place] [phone] [address] [facility] (Work) [place] [id number] Social History Tobacco Use Types Packs/Day Years [...] on file documented as of this encounter Miscellaneous Notes Telephone Encounter - Peggy Min R.N. - 05/15/2020 9:55 AM CDT COVID-19 Nurse Line Screening ASSESSMENT COVID 19 Screening Have you had close contact with a person who has a LABORATORY CONFIRMED case of COVID-19?: No - Continue screening. In the last 48 hours have you had any of the following symptoms?: New cough, New sore throat Do you have any urgent symptoms?: None- Patient meets criteria for testing. PLAN Endpoint recommendation: Screening positive, testing indicated, advised to be swabbed for COVID-19, sent to [facility] located at [address] Testing hours are M-F 8:30 am to 4:30 pm. Sat-Sun 9 am to 12:30 pm. When you arrive stay in your car and someone will direct you. Care Points provided: STANDARD PRECAUTIONS FOR ALL PATIENTS: Wash hands often with soap and water for at least 20 seconds, especially after blowing your nose, coughing, sneezing, or having been in a public place. If soap and water aren't available, use a hand wet process miller that contains at least 60% alcohol. Avoid close contact with anyone who may be exhibiting respiratory symptoms such as coughing and sneezing. Avoid touching your eyes, nose and mouth. Clean and disinfect frequently touched surfaces daily. Cover your mouth and nose with a cloth face cover when around others or in public. The cloth face cover is not a substitute for social distancing. Continue to keep about 6 feet between yourself andothers. Monitor for symptoms. Do not take your temperature within 30 minutes of exercise. If your test or screen is negative and new symptoms develop please contact your provider if it has been greaterthan 72 hours since you were tested. Educational Resource: https://www.cdc.gov/coronavirus/2019-ncov/ ycvwhix-ldxrmje-pozz/index.html Education: patient/caregiver Patient/caregiver able to teach back Patient agreeable to plan of care: Yes The following references were used: [facility] novel coronavirus (COVID- 19) resources Nursing judgement documented in this encounter Plan of Treatment Not on filedocumented as of this encounter Visit Diagnoses Not on filedocumented in this encounter
--- OUTSIDE RECORDS SUMMARY | 2022-06-18 08:41 | XMS_ITS | Encounter Summary ---
:1970 Author Organization [facility] Address [address] [place] [address] Care Team Providers Name Role Phone Unavailable Primary Care Provider Unavailable Reason for Visit Physical Therapy (Routine) - Canceled Specialty Diagnoses / Procedures Referred By Contact Refer red To Contact Diagnoses Pain Knee Right Adele Mcdonald P.A. [facility] Procedures PT Ongoing treatment [address] [place] [address] Referral ID Status Reason Start Date Expiration Date Visits V isits Requested Authorized [id number] Canceled 03/13/2021 09/18/2021 99 20 Encounter Details Date Type Department Care Team Description 04/08/2021 Clinical Support Department of Physical Adele Mcdonald, P.ASailaja [address] [place] [address] Pain Knee Right Medicine and David Mcintosh, P.T., D.P.T. Rehabilitation in [place], [place] [address] [place] [phone] Social History Tobacco Use Types Packs/Day Years [...] Progress Notes David Mcintosh P.T., CaesarPSailajaT. - 04/08/2021 10:15 AM CDT Physical Therapy Outpatient Treatment Note SUBJECTIVE Patient's Name: Hayden Mckay Referring Provider: Aura Roche Visit Diagnosis: 1. Pain Knee Right Reason for Referral: Right Knee Pain Onset Date: 03/31/21 Payor: [employer] / Plan: [employer] OPEN ACCESS PLUS / Product Type: PPO / PT Next Certification Date: 07/01/21 Epic Visit Count: 3 Patient comments: patient did not have any significant increase in knee pain following last session.He was sore after increasing his lower extremity exercise. He moved a 300 lb cabinet around his house yesterday. This did not increase his knee pain at home. States he feels pain more with lateral movem ents. Contact monitoring: PPE used during therapy: Therapist was wearing the following PPE throughout entire session: surgicalmask Patient was wearing a mask during therapy session: yes OBJECTIVE Pain: 0/10 Observation/Inspection: No gait abnormalities noted. No abnormalities with running. Ortho Exam TREATMENT Treatment today consisted of: Therapeutic Exercise: elliptical: Resistance 4 7 minutes Hip adduction: 6 plates 30 reps Hip abduction: 5.5 plates 30 reps Leg extension: 4.5 plates 30 reps Leg curl: 4.5 plates 30 reps Leg press: 6 plates 30 reps Single leg press: 4 plates 30 reps Squats: 20 reps BOSU squats: 10 reps Lunges: 20 reps Reverse lunges: 20 reps Plank: 30 seconds x2 Side plank: 30 seconds x2 each side Side shuffle: 10 ft x 3 Running and turnin ft x 2 Access Code: [email or web address] URL: [email or web address] Date: 04/08/2021 Prepared by: Fredrick Crowell Home Exercise Program/Education: Added lunges, plank and side plank to home exercise program. Pt reports good compliance with his HEP. Assessment Clinical Impression: Patient continues to show improvement. He was able to increase his weight with exercise machines today. He was able to perform lunges and reverse lunges with no increase in knee pain. He does have minor complaints with lateral movements such as shuffling and pivoting or running. He states that it relieves quickly. Progress home program with 3 new exercises. Patient is appropriatefor continued skilled physical therapy to increase strength. [...] Date: 07/01/21 Plan Plan for next session: Lateral lunges, continue to progress strengthening and running activities. Add agility ladder. Next session could be discharged if patient continues to improve. Time Spent with Patient Therapeutic Exercise (min): 39 min Time Calculation Total Timed Units (min): 39 min Total Treatment Time (min): 39 min David Mcintosh P.T., D.P.T. Department of Physical Medicine and Rehabilitation in [address] [address] Dept: [phone] documented in this encounter Plan of Treatment Not on filedocumented as of this encounter Visit Diagnoses Diagnosis Pain Knee Right documented in this encounter
--- OUTSIDE RECORDS SUMMARY | 2022-06-18 08:41 | XMS_ITS | Encounter Summary ---
:1970 Author Organization [facility] Address [address] [place] [address] Care Team Providers Name Role Phone Unavailable Primary Care Provider Unavailable Reason for Visit Physical Therapy (Routine) - Canceled Specialty Diagnoses / Procedures Referred By Contact Refer red To Contact Diagnoses Pain Knee Right Adele Mcdonald P.A. [facility] Procedures PT Ongoing treatment [address] [place] [address] Referral ID Status Reason Start Date Expiration Date Visits V isits Requested Authorized [id number] Canceled 03/13/2021 09/18/2021 99 20 Encounter Details Date Type Department Care Team Description 04/17/2021 Clinical Support Department of Physical Adele Mcdonald, P.ASailaja [address] [place] [address] Pain Knee Right Medicine and David Mcintosh, P.T., D.P.T. Rehabilitation in [place], [place] [address] [place] [phone] Social History Tobacco Use Types Packs/Day Years [...] this encounter Progress Notes David Mcintosh P.T., CaesarP.T. - 04/17/2021 11:00 AM CDT Physical Therapy Outpatient Treatment Note SUBJECTIVE Patient's Name: Hayden Mckay Referring Provider: Aura Roche Visit Diagnosis: 1. Pain Knee Right Reason for Referral: Right Knee Pain Onset Date: 03/31/21 Payor: [employer] / Plan: [employer] OPEN ACCESS PLUS / Product Type: PPO / PT Next Certification Date: 07/01/21 Epic Visit Count: 4 Patient comments: patient did not have any increased discomfort in his knee following last session. He did however on Tuesday perform soccer activities. This caused his knee to feel numb and wood like. States this lasted for about day. Has not had that sensation since. Contact monitoring: PPE used during therapy: Therapist was wearing the following PPE throughout entire session: surgicalmask Patient was wearing a mask during therapy session: yes OBJECTIVE Pain: 09/28 Observation/Inspection: No gait abnormalities noted. Patient presents with posture were normal 50-year-old male. Ortho Exam TREATMENT Treatment today consisted of: Neuromuscular Re-education: performed single athlete test on bio dex. Performed on right and left lower extremity. Right scored 6.6 and left score 9.6. Retested right later in the session when his kneefelt pain. Patient scored a 6.8. Noted he was more unstable medial to lateral and not anterior and posterior. Therapeutic Exercise: elliptical: Resistance 4 5 minutes Hip adduction: 6.5 plates 30 reps Hip abduction: 6 plates 30 reps leg extension: 5 plates 30 reps Leg curl: 5 plates 30 reps Leg press: 6.5 plates 30 reps Single leg press: 4.5 plates 30 reps Lateral lunge: 10 lb 10 reps Agility latter: 1 foot in each, two feet in each, side stepping, hopping in and hopping out, diagonals. Home Exercise Program/Education: No changes made to HEP. Pt reports good compliance with his HEP. Assessment Clinical Impression: Patient continues to demonstrate increased strength. He did have 1 instance of increased knee discomfort this past week. He also had this feeling towards the end of today's session. Attempted lunges after and he stated it felt different on his right leg compared to his left. His balance is worse on his left leg when comparing to the right during testing he performed today. He didnot have any complaints during the agility exercises. Patient is appropriate for continued skilled physical [...] 07/01/21 Plan Plan for next session: Continue with agility and strengthening activity. Perform soccer drills Time Spent with Patient Neuromuscular Re-Education (min): 8 min Therapeutic Exercise (min): 35 min Time Calculation Total Timed Units (min): 43 min Total Treatment Time (min): 43 min David Mcintosh P.T., D.P.T. Department of Physical Medicine and Rehabilitation in [address] [address] Dept: [phone] documented in this encounter Plan of Treatment Not on filedocumented as of this encounter Visit Diagnoses Diagnosis Pain Knee Right documented in this encounter
--- OUTSIDE RECORDS SUMMARY | 2022-06-18 08:41 | XMS_ITS | Encounter Summary ---
:1970 Author Organization [facility] Address [address] [place] [address] Care Team Providers Name Role Phone Unavailable Primary Care Provider Unavailable Reason for Visit Reason Comments COVID Nurse Line Encounter Details Date Type Department Care Team Description 05/15/2020 Clinical Communication Central Appointment Line, Covid JOSEID Nurse Line Office in [facility] [address] [place] [address] Social History Tobacco Use Types Packs/Day Years [...]
--- OUTSIDE RECORDS SUMMARY | 2022-06-18 08:41 | XMS_ITS | Clinical Summary ---
:1970 Author Organization [facility] Address [address] [place] [address] Care Team Providers Name Role Phone Unavailable Primary Care Provider Unavailable Source Comments Patient records contain information from all sites at [facility]. For routine questions regarding patient records, call [phone] during business hours, M-F 8:00 AM - 5:00 PM Central Time. Record requests for emergency care only can be directed to [phone] at any time.[facility] Allergies Active Allergy Reactions Severity Noted Date Comments Corticosteroids GI bleeding 04/29/2017 (Glucocorticoids) Levofloxacin GI intolerance 12/19/2006 PN: LW Reacti on: internal bleedi ng Prednisone GI intolerance 12/19/2006 PN: LW Reacti on: internal bleedi ng Quinolones GI intolerance 04/29/2017 Medications Medication Sig Dispensed Refills Start Date End Date Status albuterol (for_PROVENTIL Inhale 2 puffs. 0 7 Active HFA,VENTOLIN HFA) 90 mcg/actuation inhaler amLODIPine (for_NORVASC) Take 5 mg by 0 04/29/2017 Active 5 mg tablet mouth. fluticasone (for_FLONASE) 2 sprays. 0 07/05/2017 Active 50 mcg/actuation nasal spray fluticasone-salmeterol Inhale 1 puff. 0 07/05/2017 Active (for_ADVAIR DISKUS) 250-50 mcg/dose diskus inhaler lisinopril Take 20 mg by 0 05/27/2017 Acti ve (for_PRINIVIL,ZESTRIL) 20 mouth. mg tablet methylphenidate HCl Chew 5 mg. 0 01/21/2015 Active (METHYLIN) 5 mg tablet,chewable sertraline (for_ZOLOFT) Take 50 mg by 0 04/20/2016 Active 50 mg tablet mouth. triamterene-hydroCHLOROth Take by mouth. 0 Active iazide (for_DYAZIDE) 37.5-25 mg per capsule MAGNESIUM ORAL Take 250 mcg by 0 Active mouth daily. lisdexamfetamine Take 20 mg by 0 Active (VYVANSE) 20 mg capsule mouth every morning. doxycycline hyclate Take 100 mg by 0 Active (VIBRA-TABS) 100 mg mouth daily. tablet Active Problems Problem Noted Date Asthma NOS 02/19/2016 Social History Tobacco Use Types Packs/Day Years [...] Assigned at Date Recorded Not on file Last Filed Vital Signs Vital Sign Reading Time Taken Comments Blood Pressure 143/88 01/29/2019 7:00 PM CDT Pulse 61 01/29/2019 5:45 PM CDT Temperature 37.2 ??C (99 ??F) 01/29/2019 6:00 PM CDT Respiratory Rate 14 01/29/2019 7:15 PM CDT Oxygen Saturation 100% 01/29/2019 6:00 PM CDT Inhaled Oxygen Concentration - - Weight 101 kg (223 lb) 01/29/2019 3:09 PM CDT Height 182.9 cm (6') 01/29/2019 3:09 PM CDT Body Mass Index 30.24 01/29/2019 3:09 PM CDT Plan of Treatment Health Maintenance Due Date Last Done Comments CT Colonography 1970 Cologuard 1970 Colonoscopy 1970 Colorectal Cancer Screening 1970 FIT 1970 HIV Screening 1970 Hepatitis B Vaccines (1 of 3 - 1970 3-dose series) Hepatitis C Screening 1970 Lipid (Cholesterol) Screening 1970 Pneumococcal vaccine (0-64 years) 01/25/2015 01/25/2014, (2 - PCV) Creatinine Level 01/30/2020 01/29/2019, 08/25/2017 Potassium Level 01/30/2020 01/29/2019, 08/25/2017 Sodium Level 01/30/2020 01/29/2019, 08/25/2017 Zoster Vaccines (1 of 2) 2020 Depression Screening (Annual 09/19/2021 PHQ-2) Fasting Glucose for Diabetes 01/29/2022 01/29/2019, 017 Screening COVID-19 Vaccine (5 - Booster for 05/31/2022 04/05/2022, , Pfizer series) 12/27/2020, Additional history exists Influenza Vaccine (#1) 2022 07/14/2021, 06/18/2020, 06/27/2019, Additional history exists DTaP,Tdap,and Td Vaccines (4 - Td 01/07/2027 01/07/2017, , or Tdap) 06/15/2007 Insurance Payer Benefit Plan / Subscriber ID Effective Dates Phone Addre ss Type Group CIGNA CIGNA OPEN [id number] 2019-Present [phone] [id number] PPO ACCESS PLUS BETTINA SCHAEFFER [id number]
--- OUTSIDE RECORDS SUMMARY | 2022-06-18 08:41 | XMS_ITS | Encounter Summary ---
:1970 Author Organization [facility] Address [address] [place] [address] Care Team Providers Name Role Phone Unavailable Primary Care Provider Unavailable Reason for Visit Physical Therapy (Routine) - Canceled Specialty Diagnoses / Procedures Referred By Contact Refer red To Contact Diagnoses Pain Knee Right Adele Mcdonald P.A. [facility] Procedures PT Ongoing treatment [address] [place] [address] Referral ID Status Reason Start Date Expiration Date Visits V isits Requested Authorized [id number] Canceled 03/13/2021 09/18/2021 99 20 Encounter Details Date Type Department Care Team Description 04/22/2021 Clinical Support Department of Physical Adele Mcdonald, P.ASailaja [address] [place] [address] Pain Knee Right Medicine and David Mcintosh, P.T., D.P.T. Rehabilitation in [place], [place] [address] [place] [phone] Social History Tobacco Use Types Packs/Day Years [...] Progress Notes David Mcintosh P.T., CaesarP.T. - 04/22/2021 4:45 PM CDT Physical Therapy Outpatient Treatment Note SUBJECTIVE Patient's Name: Hayden Mckay Referring Provider: Aura Roche Visit Diagnosis: 1. Pain Knee Right Reason for Referral: Right Knee Pain Onset Date: 03/31/21 Payor: [employer] / Plan: [employer] OPEN ACCESS PLUS / Product Type: PPO / PT Next Certification Date: 07/01/21 Epic Visit Count: 5 Patient comments: patient reports that he had the decreased sensation in his right lower extremity following last session. He had 1 instance of this yesterday when he was going for a walk. When this occurs he cannot feel the ground beneath his feet and feels like his muscles are weak. He states it more affects his hamstrings. Contact monitoring: PPE used during therapy: Therapist was wearing the following PPE throughout entire session: surgicalmask Patient was wearing a mask during therapy session: yes OBJECTIVE Pain: 09/28 Observation/Inspection: No gait abnormalities noted. Seated Slump test performed: Negative Ortho Exam Outcome Measures: no formal outcome measure performed today. TREATMENT Treatment today consisted of: Therapeutic Exercise: elliptical: Resistance 5 7 minutes Hip adduction: 7 plates 30 reps Hip abduction: 6.5 plates 30 reps Leg extension: 5.5 plates 30 reps Leg curl: 5.5 plates 30 reps Leg press: 7 plates 30 reps Single leg press: 4.5 plates 30 reps RDL: 20 lb 30 reps Lateral lunge: 15 lb 30 reps Shuffle: 20 ft x 2 Run and pivot: 30 ft x 3 Passing a soccer ball back and forth: 20 times Access Code: [email or web address] URL: [email or web address] Date: 04/22/2021 Prepared by: Fredrick Crowell Home Exercise Program/Education: Added RDL, Eversion and inversion with Thera- Band to home program. Pt reports good compliance with his HEP. Assessment Clinical Impression: Patient continues to demonstrate increased strength. He was able to tolerate shuffling with no increase in pain. When he was running and turning he did start to have decreased sensation and weakness in his right lower extremity. He specifically lost sensation in his foot and weakness in his hamstrings. Overall continues to make improvements. He continues to tolerate activities hewas previous and able to perform. Patient is appropriate continues to get physical therapy to increase strength and range of motion. Functional Goals and Timeframes: PT Goal #1: [...] Plan for next session: Continue to progress plyometrics and lower extremity strength. Screen low back and add core stabilization to HEP. Time Spent with Patient Therapeutic Exercise (min): 41 min Time Calculation Total Timed Units (min): 41 min Total Treatment Time (min): 41 min David Mcintosh P.T., D.P.T. Department of Physical Medicine and Rehabilitation in [address] [address] Dept: [phone] documented in this encounter Plan of Treatment Not on filedocumented as of this encounter Visit Diagnoses Diagnosis Pain Knee Right documented in this encounter
--- OUTSIDE RECORDS SUMMARY | 2022-06-18 08:41 | XMS_ITS | Encounter Summary ---
:1970 Author Organization [facility] Address [address] [place] [address] Care Team Providers Name Role Phone Unavailable Primary Care Provider Unavailable Reason for Visit Reason Comments Ankle Pain 47 y/o m presents with pain in l achilles and swollen outer ankle since yesterday. Denies any injury , has been using home remediesbut rates pain an 8. Encounter Details Date Type Department Care Team Description 01/27/2018 Emergency [facility] Hayden Fan, Pse udogout Ankle Left Department M.D. (Primary Dx) [address] [place] [phone] Social History Tobacco Use Types Packs/Day Years Used Date Smoking Tobacco: Never Smokeless Tobacco: Never Alcohol Use Standard Drinks/Week Comments Yes 0 (1 standard drink = 0.6 oz pure alcoho l) 5-6 beers weekly Alcohol Habits Answer Date Recorded How often do you have a drink containing alcohol? Not asked How many drinks containing alcohol do you have on a Not aske d typical day when you are drinking? How often do you have six or more drinks on one Not asked occasion? Comment: 5-6 beers weekly 01/27/2018 Sex Assigned at Date Recorded Not on file documented as of this encounter Last Filed Vital Signs Vital Sign Reading Time Taken Comments Blood Pressure 115/76 01/27/2018 12:05 PM CDT Pulse 77 01/27/2018 12:05 PM CDT Temperature 36.7 ??C (98.1 ??F) 01/27/2018 11:11 AM CDT Respiratory Rate 18 01/27/2018 12:05 PM CDT Oxygen Saturation 94% 01/27/2018 12:05 PM CDT Inhaled Oxygen Concentration - - Weight 104 kg (229 lb 6.4 oz) 01/27/2018 11:13 AM CDT Height 182.9 cm (6') 01/27/2018 11:13 AM CDT Body Mass Index 31.11 01/27/2018 11:13 AM CDT documented in this encounter Discharge Instructions AttachmentsThe following attachments cannot be sent through Care Everywhere. Calcium Pyrophosphate Deposition (Singaporean)documented in this encounter Medications at Time of Discharge Medication Sig Dispensed Refills Start Date End Date albuterol (for_PROVENTIL Inhale 2 puffs. 0 2016 HFA,VENTOLIN HFA) 90 mcg/actuation inhaler amLODIPine (for_NORVASC) 5 Take 5 mg by 0 017 mg tablet mouth. fluticasone (for_FLONASE) 2 sprays. 0 07/05/2017 50 mcg/actuation nasal spray fluticasone-salmeterol Inhale 1 puff. 0 7 (for_ADVAIR DISKUS) 250-50 mcg/dose diskus inhaler lisinopril Take 20 mg by 0 05/27/2017 (for_PRINIVIL,ZESTRIL) 20 mouth. mg tablet MAGNESIUM ORAL Take 250 mcg by 0 mouth daily. methylphenidate HCl Chew 5 mg. 0 01/21/2015 (METHYLIN) 5 mg tablet,chewable sertraline (for_ZOLOFT) 50 Take 50 mg by 0 2015 mg tablet mouth. triamterene-hydroCHLOROthia Take by mouth. 0 zide (for_DYAZIDE) 37.5-25 mg per capsule ketorolac (TORADOL) 10 mg Take 1 tablet (10 20 tablet 0 07/201802/01/2018 tablet mg total) by mouth every 4 (four) hours as needed for pain for up to 5 days. documented as of this encounter ED Notes Hayden Fan M.D. - 01/27/2018 11:27 AM CDT Images from the original note were not included. SUBJECTIVE CHIEF COMPLAINT/REASON FOR VISIT Ankle Pain (47 y/o m presents with pain in l achilles and swollen outer ankle since yesterday. Denies any injury, has been using home remediesbut rates pain an 8.) HISTORY OF PRESENT ILLNESS 47-year-old male with a history of gout presents to the emergency department for evaluation of left ankle and heel pain. Patient denies any injury, though states that for the last 24 hours he has had progressively worsening pain as well as swelling of the left lateral ankle and heel. He has been icingthe area, elevating, as well as taking Aleve 2 pills b.i.d. in attempt to mitigate his pain though he states has been unsuccessful. He denies any skin compromise in the area, or signs of infection. Pain is described as constant, 8/10 severity, which intermittently improves and then worsens. He declines offer of analgesia here in the emergency department this morning. Pain worsens with weight-bearing, or with flexion and extension. He has noted a decrease in his range of motion at the ankle, as well as increased pain with both active and passive flexion and extension. Here for evaluation. REVIEW OF SYSTEMS Constitutional: Negative for chills and fever. Respiratory: Negative. Cardiovascular: Negative. Gastrointestinal: Negative. Musculoskeletal: Positive for joint swelling and extremity pain. Skin: Positive for color change (erythema along the lateral left ankle as well as posterior in the region of the insertion of the Achilles.). Neurological: Negative. Hematological: Negative. Psychiatric/Behavioral: Negative. OBJECTIVE Initial Vitals [01/27/18 1111] Temperature Pulse Rate Heart Rate Resp Rate Blood Pressure SpO2 36.7 ??C 93 93 18 125/75 99 % Pain Score 8 PHYSICAL EXAMINATION Constitutional: He appears well-developed and well-nourished. He is cooperative. No distress. HENT: Head: Normocephalic and atraumatic. Mouth/Throat: Mucous membranes are dry. Cardiovascular: Regular rhythm. Capillary refill: takes less than 3 seconds, Pulmonary/Chest: Effort normal and breath sounds normal. There is normal air entry. Abdominal: Bowel sounds are normal. Musculoskeletal: Feet: Area noted in the diagram outlined in red is area of mild erythema, swelling, as well as tenderness to palpation. Patient has decreased range of motion to flexion extension, as well as internal and external rotation in the extended position. Neurological: He is alert and oriented to person, place, and time. He has normal sensation and normal strength. Skin: No rash noted. Psychiatric: He has a normal mood and affect. Judgment and thought content normal. Cognition and memory are normal. ASSESSMENT/PLAN Impression and Plan Impression: Pseudogout Plan: Toradol 10 mg p.o. q.i.d. for 5 days. Patient states he would like to try this prior to initiating prednisone therapy. All the patient's questions were answered to satisfaction prior to leaving the emergency department.. Reviewed and summarized previous medical records including: Lab results. I personally reviewed the lab result(s) and my interpretation is: Normal Radiology results: Personally reviewed the radiology image. Radiology interpretation: Normal ED Course as of Jan 27 1229TueJanuary 27, 2018 1227 CBC uric acid were normal. Radiograph of the left ankle shows no acute fracture or abnormality. Final Diagnoses: as of Jan 27 1229 Pseudogout Ankle Left Hayden Fan M.D. 01/27/18 1254 documented in this encounter Plan of Treatment Not on filedocumented as of this encounter Procedures Procedure Name Priority Date/Time Associated Comments Diagnosis DX ANKLE LEFT 3+ RAD - Semiurgent 01/27/2018 11:45 Res ults for this VIEWS (Fast; most ED AM CDT procedure are in patients; some the results inpatients) section. CBC WITH STAT 01/27/2018 11:33 Results for this DIFFERENTIAL, B AM CDT procedure ar e in the results section. URIC ACID, S/P STAT 01/27/2018 11:33 Results f or this AM CDT procedure are i n the results section. documented in this encounter Results DX Ankle Left 3+ Views (01/27/2018 11:45 AM CDT) Anatomical Region Laterality Modality Lower Extremity, Ankle, Musculoskeletal RST LOS Left Computed Radiography Specimen (Source) Anatomical Collection Method Collection Time Re ceived Time Location / / Volume Laterality 01/27/2018 12:37 PM CDT Impressions 01/27/2018 12:41 PM CDT IMPRESSION: Three-view left ankle negative for fracture. Mild soft tissue swelling over the lateral malleolus. Narrative 01/27/2018 12:41 PM CDT EXAM: DX ANKLE LEFT 3+ VIEWS Procedure Note Armani Norman M.D. - 01/27/2018For matting of this note might be different from the original. EXAM: DX ANKLE LEFT 3+ VIEWS IMPRESSION: Three-view left ankle negati ve for fracture. Mild soft tissue swelling over the lateral malleolus. Hayden Fan M.D. IMG DIAGNOSTIC IMAGING PROCE DURES Uric Acid (01/27/2018 11:33 AM CDT) P athologist Signature Uric Acid, S 7.0 3.7 - 8.0 01/27/2018 [facility] mg/dL 12:16 PM [facility] Specimen Anatomical Collection Method Collection Time Receive d Time (Source) Location / / Volume Laterality Blood (Blood, 01/27/2018 11:33 01/27/2018 Venous) AM CDT 11:59 AM CDT Hayden Fan M.D. LAB BLOOD ADD-ON Performing Organization Address City/State/ZIP Code Phon e Number [place] [address] [place] [address] [facility] (ABNORMAL) CBC with Differential (01/27/2018 11:33 AM CDT) [facility] Method Time Signature Hemoglobin 15.3 13.2 - 01/27/2018 [facility] 16.6 g/dL 11:44 AM [facility] Hematocrit 44.5 38.3 - 01/27/2018 [facility] 48.6 % 11:44 AM [facility] Erythrocytes 4.84 4.35 - 01/27/2018 [facility] 5.65 11:44 AM [facility] x10(12)/L [facility] MCV 91.9 78.2 - 01/27/2018 [facility] 97.9 fL 11:44 AM [facility] RBC Distrib Width 12.9 11.8 - 01/27/2018 [facility] 14.5 % 11:44 AM [facility] Platelet Count 266 135 - 317 01/27/2018 [facility] x10(9)/L 11:44 AM [facility] Leukocytes 9.3 3.4 - 9.6 01/27/2018 [facility] x10(9)/L 11:44 AM [facility] Neutrophils 7.07 (H) 1.56 - 01/27/2018 [facility] 6.45 11:44 AM CDT [facility]ALTH x10(9)/L SYSTEM- [place] [facility] Lymphocytes 1.13 0.95 - 01/27/2018 [facility] 3.07 11:44 AM CDT HEALTH x10(9)/L SYSTEM [facility] [place] [facility] Monocytes 0.82 (H) 0.26 - 01/27/2018 [facility] 0.81 11:44 AM CDT HEALTH x10(9)/L SYSTEM [facility] [place] [facility] Eosinophils 0.18 0.03 - 01/27/2018 [facility] 0.48 11:44 AM CDT HEALTH x10(9)/L SYSTEM- [place] [facility] Basophils 0.08 0.01 - 01/27/2018 [facility] 0.08 11:44 AM CDT [facility] [place] [facility] Specimen Anatomical Collection Method Collection Time Receive d Time (Source) Location / / Volume Laterality Blood (Blood, 01/27/2018 11:33 01/27/2018 Venous) AM CDT 11:40 AM CDT Hayden Fan M.D. LAB BLOOD ADD-ON Performing Organization Address City/State/ZIP Code Phon e Number [facility] [address] [place] [address] [facility] documented in this encounter Visit Diagnoses Diagnosis Pseudogout Ankle Left - Primary documented in this encounter
--- OUTSIDE RECORDS SUMMARY | 2022-06-18 08:41 | XMS_ITS | Encounter Summary ---
:1970 Author Organization [facility] Address [address] [place] [address] Care Team Providers Name Role Phone Unavailable Primary Care Provider Unavailable Reason for Visit Reason Comments Dizziness pt states has felt lighthead ed and dizzy today. Has had sinus congestion for weeks, took decongestant this morning. Encounter Details Date Type Department Care Team Description 01/29/2019 Emergency [place] [facility] Annamarie Rothman D. O. Dizziness (Primary Dx) Department Hu Ruiz M.D. [address] [place] [id number] [place] [address] Social History Tobacco Use Types Packs/Day Years [...] Mass Index 30.24 01/29/2019 3:09 PM CDT documented in this encounter Discharge Instructions Discharge InstructionsBuAnnamarie lucero D.O. - 01/29/2019 7:33 PM CDT For any difficulty breathing, swallowing, double vision, numbness, weakness new or worsening symptoms, return to the ED AttachmentsThe following attachments cannot be sent through Care Everywhere. Dizziness (Belizean)documented in this encounter Medications at Time of Discharge Medication Sig Dispensed Refills Start Date End Date albuterol (for_PROVENTIL Inhale 2 puffs. 0 2016 HFA,VENTOLIN HFA) 90 mcg/actuation inhaler amLODIPine (for_NORVASC) 5 mg Take 5 mg by 0 04/19 tablet mouth. doxycycline hyclate Take 100 mg by 0 (VIBRA-TABS) 100 mg tablet mouth daily. fluticasone (for_FLONASE) 50 2 sprays. 0 017 mcg/actuation nasal spray fluticasone-salmeterol Inhale 1 puff. 0 7 (for_ADVAIR DISKUS) 250-50 mcg/dose diskus inhaler lisdexamfetamine (VYVANSE) 20 Take 20 mg by 0 mg capsule mouth every morning. lisinopril Take 20 mg by 0 05/27/2017 (for_PRINIVIL,ZESTRIL) 20 mg mouth. tablet MAGNESIUM ORAL Take 250 mcg by 0 mouth daily. methylphenidate HCl Chew 5 mg. 0 01/21/2015 (METHYLIN) 5 mg tablet,chewable sertraline (for_ZOLOFT) 50 mg Take 50 mg by 0 10/2015 tablet mouth. triamterene-hydroCHLOROthiazi Take by mouth. 0 de (for_DYAZIDE) 37.5-25 mg per capsule documented as of this encounter ED Notes Annamarie Rothman D.O. - 01/29/2019 7:50 PM CDT SUBJECTIVE CHIEF COMPLAINT/REASON FOR VISIT Dizziness (pt states has felt lightheaded and dizzy today. Has had sinus congestion for weeks, took decongestant this morning. ) HISTORY OF PRESENT ILLNESS 48 y/o male presents with dizziness. He has a history of sinus issues has had prior sinus surgery. He has been congested, but took a sudafed this morning. He states he also has HTN and has been on multiple meds for some time. He states his BP has been high today, and it normally isn't. It was 99 diastolic at one point. He also has been feeling dizzy and lightheaded like a sense of unsteadiness. No spinning sensation. No numbness/tingling weakness. He had word finding difficulty during his conference call today. He is worried his sympotms could be stroke or heart attack. History provided by: Patient REVIEW OF SYSTEMS Constitutional: Negative. Negative for chills and fever. HENT: Positive for congestion. Negative for rhinorrhea and sore throat. Respiratory: Negative for chest tightness, orthopnea and shortness of breath. Cardiovascular: Negative for chest pain. Gastrointestinal: Negative for abdominal pain and vomiting. Genitourinary: Negative for dysuria. Musculoskeletal: Negative for back pain. Skin: Negative for rash. Allergic/Immunologic: Negative for immunocompromised state. Neurological: Positive for dizziness. Negative for weakness, light-headedness, numbness and headaches. OBJECTIVE Initial Vitals Temperature Pulse Rate Heart Rate Resp Rate Blood Pressure SpO2 01/29/19 1508 01/29/19 1508 01/29/19 1625 01/29/19 1508 01/29/19 1508 01/29/19 1508 37 ??C 63 (!) 58 16 (!) 143/97 100 % Pain Score 01/29/19 1508 0 - No pain PHYSICAL EXAMINATION Constitutional: He appears well-developed and well-nourished. He is cooperative. No distress. HENT: Head: Normocephalic and atraumatic. Mouth/Throat: Oropharynx is clear and moist. Mucous membranes are moist. No tonsillar exudate. Eyes: EOM are normal. Pupils are equal, round, and reactive to light. Neck: Normal range of motion. Neck supple. Cardiovascular: Normal rate and regular rhythm. Capillary refill: takes less than 3 seconds, Pulmonary/Chest: Effort normal and breath sounds normal. Abdominal: Bowel sounds are normal. Neurological: He is alert and oriented to person, place, and time. He has normal sensation, normal strength and intact cranial nerves. GCS eye subscore is 4. GCS verbal subscore is 5. GCS motor subscore is 6. Normal speech. He has a normal rapid alternating movements , a normal heel to toe test, unimpaired heel to sewell and unimpaired finger to nose. Gait normal. No dysmetria, diplopia, dysarthria, dystaxia, dysphagia Psychiatric: He has a normal mood and affect. Nursing note and vitals reviewed. ASSESSMENT/PLAN Impression and Plan Patient presents with dizziness and congestion. Differential includes but not limited to TIA, ACS, electrolyte abnormality, sinusitis. EKG is unremarkable. Troponin is negative, and symptoms have been >6 hours, so I do not feel he needs an additional troponin. His electrolytes are normal. His blood counts are normal. His CT scan isalso normal. Discussed that if there was TIA or mini-stroke, that we would not see evidence of this on CT, so he should watch for signs of this. He should follow up closely with his primary doctor for further testing. Return precautions to the emergency department were discussed at length. Patient and agreeable plan. Reviewed and summarized previous medical records including: Lab results, EKG images/reports and Documentation from previous visits. I personally reviewed the lab result(s) and my interpretation is: Normal Radiology results: Personally reviewed the radiology image and Reviewed the radiology report. Radiology interpretation: Normal ECG results: normal ECG Final Diagnoses: as of Feb 01 217 Dizziness Annamarie Rothman D.O. 02/01/19 0230 documented in this encounter Plan of Treatment Not on filedocumented as of this encounter Procedures Procedure Name Priority Date/Time Associated Comments Diagnosis ECG STAT 01/29/2019 6:20 Results for this PM CDT procedure are i n the results section. TROPONIN T, 5TH STAT 01/29/2019 6:13 Results f or this GEN, P PM CDT procedure are i n the results section. BASIC METABOLIC STAT 01/29/2019 6:13 Results f or this PANEL, S/P PM CDT procedure are i n the results section. CBC WITHOUT STAT 01/29/2019 6:12 Results for this DIFFERENTIAL, B PM CDT procedure ar e in the results section. CT HEAD WITHOUT RAD - Semiurgent 01/29/2019 6:11 Resul ts for this IV CONTRAST (Fast; most ED PM CDT procedure are in patients; some the results inpatients) section. documented in this encounter Results ECG 12 Lead (01/29/2019 6:20 PM CDT) P athologist Signature Ventricular Rate 59 BPM MUSE ECG/Min DC Interval 190 ms MUSE QRSD Interval 110 ms MUSE QT Interval 436 ms MUSE QTC Interval 431 ms MUSE P [place] 51 degrees MUSE R [place] 32 degrees MUSE T Wave [place] 52 degrees MUSE Specimen Anatomical Collection Method Collection Time Receive d Time (Source) Location / / Volume Laterality 01/29/2019 6:20 PM 9 6:23 CDT PM CDT Impressions MUSE - 01/29/2019 6:23 PM CDT Sinus bradycardia Otherwise normal ECG When compared with ECG of 25-AUG-2017 14 :33, No significant change was found Narrative This result has an attachment that is no t available. Procedure Note Luciano Conde M.D. - 01/29/2019Formatti ng of this note might be different from the original. IMPRESSION: Sinus bradycardia Otherwise normal ECG When compared with ECG of 25-AUG-2017 14 :33, No significant change was found Annamarie Rothman D.O. ECG ORDERABLES Performing Organization Address City/State/ZIP Code Phon e Number MUSE MUSE NA Troponin T, 5th Generation (01/29/2019 6:13 PM CDT) P athologist Signature Troponin T, 5th <6 <=15 ng/L 01/29/2019 [facility] gen 6:44 PM CDT [facility] Comment: Biotin has been identified by the dana hogue as a potential interfering substance. ??Higher concentr ations of biotin may be found in multivitamins, hair/nail supple ments, and workout supplements. ??If the result does not [facility] clinical observations, repeat testing after patient refrains fr om the use of supplements for at least 12 hours. Specimen Anatomical Collection Method Collection Time Receive d Time (Source) Location / / Volume Laterality Blood (Blood, 01/29/2019 6:13 PM 01/30/20 19 6:26 Venous) CDT PM CDT Annamarie Rothman D.O. LAB BLOOD ADD-ON Performing Organization Address City/State/ZIP Code Phon e Number [place] [address] [place] [address] [facility] Basic Metabolic Panel (01/29/2019 6:13 PM CDT) P athologist Signature Potassium, P 3.9 3.6 - 5.2 01/29/2019 [facility] mmol/L 6:[address] [facility] Sodium, P 140 135 - 145 01/29/2019 [facility] mmol/L 6:50 PM [facility] Chloride, P 100 98 - 107 01/29/2019 [facility] mmol/L 6:50 PM [facility] Bicarbonate, P 26 22 - 29 01/29/2019 [facility] mmol/L 6:50 PM [facility] Anion Gap, P 14 7 - 15 01/29/2019 [facility] 6:[address] [facility] BUN (Blood Urea 12 8 - 24 01/29/2019 [facility] Nitrogen), P mg/dL 6:50 PM [facility] Creatinine 0.91 0.74 - 01/29/2019 [facility] 1.35 mg/dL 6:[address] [facility] eGFR-Black/Afri >90 >=60 01/29/2019 [facility] can Cymro mL/min/BSA 6:[address] [facility] Comment: ----ADDITIONAL INFORMATION---- Estimated GFR calculated using the 2009 CKD_EPI creatinine equation. eGFR Non-Black/ >90 >=60 mL/min/BSA 01/29/2019 6:50 PM [facility] Cymro [facility] Comment: ----ADDITIONAL INFORMATION---- Estimated GFR calculated using the 2009 CKD_EPI creatinine equation. Calcium, Total, P 9.6 8.6 - 10.0 mg/dL 01/29/2019 6 :50 PM CDT [facility] Glucose, P 94 70 - 140 mg/dL 01/29/2019 6:50 PM CDT [facility] Specimen Anatomical Collection Method Collection Time Receive d Time (Source) Location / / Volume Laterality Blood (Blood, 01/29/2019 6:13 PM 01/30/20 19 6:26 Venous) CDT PM CDT Annamarie Rothman D.O. LAB BLOOD ADD-ON Performing Organization Address City/State/ZIP Code Phon e Number [facility] [address] [place] [address] [facility] CBC without Differential (01/29/2019 6:12 PM CDT) athologist Signature Hemoglobin 15.7 13.2 - 01/29/2019 [facility] 16.6 g/dL 6:29 PM CDT [facility] Hematocrit 45.6 38.3 - 01/29/2019 [facility] 48.6 % 6:29 PM CDT [facility] Erythrocytes 4.98 4.35 - 01/29/2019 [facility] 5.65 6:[address] [facility] x10(12)/L [facility] MCV 91.6 78.2 - 01/29/2019 [facility] 97.9 fL 6:29 PM CDT [facility] RBC Distrib Width 13.0 11.8 - 01/29/2019 [facility] 14.5 % 6:29 PM CDT [facility] Platelet Count 285 135 - 317 01/29/2019 [facility] x10(9)/L 6:29 PM CDT [facility] Leukocytes 5.8 3.4 - 9.6 01/29/2019 [facility] x10(9)/L 6:29 PM CDT [facility] Specimen Anatomical Collection Method Collection Time Receive d Time (Source) Location / / Volume Laterality Blood (Blood, 01/29/2019 6:12 PM 01/30/20 19 6:26 Venous) CDT PM CDT Annamarie Rothman D.O. LAB BLOOD ADD-ON Performing Organization Address City/State/ZIP Code Phon e Number [facility] [address] [place] [address] [facility] [address] Head without IV Contrast (01/29/2019 6:11 PM CDT) Anatomical Region Laterality Modality Head, Neuroradiology RST LOS, Neuroradiology ARZ LOS, N/A Computed Tomography Neuroradiology FLA LOS Specimen (Source) Anatomical Collection Method Collection Time Re ceived Time Location / / Volume Laterality 01/29/2019 6:16 PM CDT Impressions 01/29/2019 6:19 PM CDT IMPRESSION: 1. Normal unenhanced intracranial head C T, no acute intracranial abnormality. 2. Previous bilateral maxillary antrecto mies with mucosal thickening in the maxillary sinuses and ethmoid air cells bilaterally. Narrative 01/29/2019 6:19 PM CDT EXAM: CT HEAD WITHOUT IV CONTRAST COMPARISON: None FINDINGS: CT bone windows are unremarkab le. There appear to have been previous bilateral maxillary antrectomies with re section of the medial evans. There is mucosal thickening in the maxillary sinu ses bilaterally and in scattered ethmoid air cells bilaterally. The remaining vis ualized paranasal sinuses and mastoid air cells are normal. Intracranially the ventricular system and cerebral sulci are within normal limits. No intracrania l or intracerebral hemorrhage is identified and there is no mass effect o r midline shift. No areas of decreased attenuation suspicious for infarct or ed peewee are noted. Procedure Note Gigi Richmond Jr., M.D. - 2018 EXAM: CT HEAD WITHOUT IV CONTRAST COMPARISON: None FINDINGS: CT bone windows are unremarkab le. There appear to have been previous bilateral maxillary antrectomies with re section of the medial evans. There is mucosal thickening in the maxillary sinu ses bilaterally and in scattered ethmoid air cells bilaterally. The remaining vis ualized paranasal sinuses and mastoid air cells are normal. Intracranially the ventricular system and cerebral sulci are within normal limits. No intracrania l or intracerebral hemorrhage is identified and there is no mass effect o r midline shift. No areas of decreased attenuation suspicious for infarct or ed peewee are noted. IMPRESSION: 1. Normal unenhanced intracranial head C T, no acute intracranial abnormality. 2. Previous bilateral maxillary antrecto mies with mucosal thickening in the maxillary sinuses and ethmoid air cells bilaterally. Annamarie Rothman D.O. IMYolande CT PROCEDURES documented in this encounter Visit Diagnoses Diagnosis Dizziness - Primary documented in this encounter
--- OUTSIDE RECORDS SUMMARY | 2022-06-18 08:42 | XMS_ITS | Clinical Summary ---
:1970 [facility] Address [address], [place] [address] Care Team Providers Name Role Phone Jossue Chapin MD Primary Care Provider Source Comments You are receiving this document as you are listed as the primary care provider,follow-up provider, or the patient has been referred to you for consultation.This is in compliance with the Medicare and Medicaid EHR Incentive Program,which states Providers who transition their patient to another setting of careor provider of care or refers their patient to another provider of care shouldprovide summarycare record for each transition of care or referral. [facility] Allergies Active Allergy Reactions Severity Noted Date Comments Corticosteroids Other, see comments 04/29/2017 Levofloxacin 12/19/2006 PN: LW Reaction : internal bleeding Prednisone 12/19/2006 PN: LW Reaction : internal bleeding Medications Medication Sig Dispensed Refills Start Date End Date Status lisinopril (ZESTRIL) 5 Take 5 mg by mouth 0 Active MG tablet daily. lisdexamfetamine Take 50 mg by 0 Active (VYVANSE) 50 MG mouth daily. capsule amLODIPine (NORVASC) 5 Take 5 mg by mouth 0 Active MG tablet daily. MAGNESIUM OR Take 250 mcg by 0 A ctive mouth. hydrocortisone 2.5 % MAGUI EXT AA BID 0 08/20/2020 Active cream ketoconazole (NIZORAL) APPLY 1 0 08/20/2020 Active 2 % cream APPLICATION TO FACIAL AREAS BID albuterol 2.5 mg/3 mL, 1 Vial (2.5 mg) by 180 mL 0 12/16/19 22 Active 0.083%, (PROVENTIL) Nebulization route nebulizer solution every 6 hours as needed. ALBUterol sulfate HFA Inhale 2 Puffs 18 g 4 12/15/2021 Active 108 (90 Base) MCG/ACT every 4 hours as inhaler needed. budesonide (PULMICORT) Inhale 2 mL (0.5 180 mL 3 12/15/2021 Active 0.5 MG/2ML inhalation mg) daily. Use suspension with nasal saline rinse fluticasone propionate Place 2 Sprays 48 g 3 12/15/2021 Active (FLONASE) 50 MCG/ACT into both nostrils nasal solution daily. fluticasone-salmeterol Inhale 1 Puff two 3 Each 3 2 Active (WIXELA INHUB) 250-50 times a day. Rinse MCG/DOSE diskus mouth/gargle after inhaler use. Active Problems Problem Noted Date Psoriasis 09/01/2016 Right elbow pain 09/01/2016 Alopecia areata 09/01/2016 Chronic pain of both knees 09/01/2016 Nasal polyp 02/22/2013 Overweight 02/22/2013 Overview: Overweight(278.02) ([facility]) Anemia 04/07/2012 Diarrhea 04/07/2012 Diverticulitis of colon with perforation 04/05/2012 Asthma 02/23/2003 Overview: Asthma NOS Esophageal reflux 02/23/2003 Overview: Gastroesophageal Reflux Disease Allergic rhinitis 02/23/2003 Overview: Rhinitis Allergic NOS Immunizations Name Administration Dates Next Due Flu Vac Preserv Free (3+yrs) 07/22/2011, 07/14/2010, 009, 07/11/2007, 09/15/2006 Influenza IIV4 (Quadrivalent) 0.5mL 07/05/2017, 07/29/2016 (84147) Influenza, Unspecified Formulation 06/13/1998 PPSV23 (Pneumovax) 05/09/1998 Pfizer (Comirnaty) COVID-19, 12+ Yrs 12/06/2020 Purple Top TDAP (ADACEL) 06/15/2007 Family History Medical History Relation Name Comments Depression Father Mental Disorder Father Cancer Mother High Blood Pressure Mother Cancer Maternal Aunt Cancer Maternal Grandmother Cancer Maternal Uncle Diabetes Maternal Uncle High Blood Pressure Maternal Uncle High Cholesterol Maternal Uncle Alcohol/Drug Abuse Paternal Grandfather Arthritis Paternal Grandfather Diabetes Paternal Grandfather High Blood Pressure Paternal Grandfather Diabetes Paternal Grandmother Heart Disease Paternal Grandmother High Blood Pressure Paternal Grandmother Kidney/Bladder Disease Paternal Uncle Relation Name Status Comments Father Mother Maternal Aunt Maternal Grandmother Maternal Uncle Paternal Grandfather Paternal Grandmother Paternal Uncle Social History Tobacco Use Types Packs/Day Years Used Date Smoking Tobacco: Former Cigarettes 1 Quit : 1990 Smokeless Tobacco: Never Alcohol Use Standard Drinks/Week Comments Yes 3 (1 standard drink = 0.6 oz pure alcoho l) Sex Assigned at Date Recorded Not on file Last Filed Vital Signs Vital Sign Reading Time Taken Comments Blood Pressure 123/84 11/26/2020 3:27 PM [employer] Pulse 71 11/26/2020 3:27 PM [employer] Temperature 36.6 ??C (97.9 ??F) 02/22/2013 8:59 AM CDT Respiratory Rate 16 02/22/2013 8:59 AM CDT Oxygen Saturation 97% 11/26/2020 3:27 PM [employer] Inhaled Oxygen Concentration - - Weight 103.1 kg (227 lb 6.4 oz) 12/15/2021 3:24 PM CDT Height 182.9 cm (6') 12/15/2021 3:24 PM CDT Body Mass Index 30.84 12/15/2021 3:24 PM CDT Plan of Treatment Health Maintenance Due Date Last Done Comments Colon Cancer Screening Plan 1970 Due Hep C Screening (Preventive 1970 Services) HepB (1) 1970 PSA Screening Discussion 1970 HIV Screening (Preventive 1986 Services) Adult Preventive Visit 1988 Cholesterol 06/15/2012 06/15/2007 Pneumococcal (2 - PCV) 01/25/2015 01/25/2014, 05/09/1998 Zoster/Shingles (1 of 2) 2020 COVID-19 Vaccine (2 - 12/27/2020 12/06/2020 Pfizer series) Influenza (#1) 2022 07/14/2021, 06/18/2020, 06/27/2019, Additional history exists DTaP/Tdap/Td (3 - Tdap) 01/07/2027 01/07/2017, 06/15/2007 HepA Aged Out No longer eligib le based on patient 's age to complete this topic Hib Aged Out No longer eligib le based on patient 's age to complete this topic IPV (Polio) Aged Out No longer eligib le based on patient 's age to complete this topic MCV4 Aged Out No longer eligib le based on patient 's age to complete this topic Insurance Payer Benefit Plan Subscriber ID Effective Phone Address Typ e / Group Dates MENG FAN [id number] 2021-Pres [phone] [address] [facility] [address] [address] [place] [address] [address] (Home) [facility] [phone] [address] (Work) [place] [id number] Hayden Mckay Personal/Family Self 1970 [address] (Home) [employer] [phone] [address] (Work) [place] [id number] Advance Directives Latest Code Status on File Code Status Date Activated Date Inactivated Comments Full Code 04/05/2012 10:27 PM 04/08/2012 5:55 PM Care Teams Financial Assistance Advisor Relationship Specialty Start Date End Date Jossue Chapin MD PCP - General 09/26/181999 [place] [address]
--- OUTSIDE RECORDS SUMMARY | 2022-06-18 08:42 | XMS_ITS | Clinical Summary ---
:1970 Author Organization [facility] [place] [address] Care Team Providers Name Role Phone Santino Sauceda MD Primary Care Provider Allergies Active Allergy Reactions Severity Noted Date Comments Corticosteroids (Glucocorticoids) *Unknown 017 Quinolones *Unknown 04/29/2017 Medications Medication Sig Dispensed Refills Start Date End Date Status amLODIPine (NORVASC) 5 Take 1 tablet by 90 tablet 3 04/29/2017 Active mg tabletIndications: mouth once HTN (hypertension) daily. lisinopril (PRINIVIL; Take 1 tablet by 90 tablet 3 05/27/2017 Active ZESTRIL) 20 mg mouth once tabletIndications: HTN daily. (hypertension) budesonide (PULMICORT Inhale 0.5 mg by 0 11/19/2019 Active RESPULES) 0.5 mg/2 mL mouth. neb suspension VYVANSE 20 mg capsule 0 11/21/2019 Active fluticasone (50 mcg per 2 Sprays. 0 07/05/2017 Active actuation) nasal solution (FLONASE) fluticasone Inhale 1 Puff by 0 07/05/2017 Active propion-salmeteroL mouth. (ADVAIR) 250-50 mcg/Dose diskus inhaler escitalopram oxalate TK 1/2 T PO D 0 11/17/2019 Active (LEXAPRO) 20 mg tablet albuterol HFA 90 Inhale 2 Puffs 0 07/05/2017 Active mcg/actuation inhaler by mouth every 4 hours if needed. amoxicillin-clavulanate Take 1 Tab by 0 11/19/2019 Active 875-125 mg tablet mouth. (AUGMENTIN) pentoxifylline (TRENTAL) Take 1 tablet by 60 tablet 11 10/22/19 21 Active 400 mg ER mouth 2 times tabletIndications: daily with Peyronie's disease meals. Active Problems Not on file Social History Tobacco Use Types Packs/Day Years Used Date Former Smoker Smokeless Tobacco: Never Used Alcohol Use Standard Drinks/Week Comments Yes 0 (1 standard drink = 0.6 oz pure alcoho l) Alcohol Habits Answer Date Recorded How often do you have a drink containing alcohol? 2-3 times a week 11/21/2019 How many drinks containing alcohol do you have on a 1 or 2 11/21/2019 typical day when you are drinking? How often do you have six or more drinks on one Less than mo nthly 11/21/2019 occasion? 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 Body Mass Index 31.42 11/21/2019 10:00 AM 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 Plan of Treatment Health Maintenance Due Date Last Done Comments COVID-19 vaccine series (#1) 01/17/1971 Tdap 1981 Depression screening for age 12+ 1982 Hepatitis C screening for age 18-79 1988 Tetanus booster 1990 Colonoscopy through age 75 2015 Lipids for age 45-75 2015 Zoster (shingles) series for age 50+ (1 of 2) 2020 BMI (ht and wt on same day) for age 18+ 11/20/2020 11/21/19 20 Influenza for age 50-64 05/20/2022 Results Not on filefrom Last 3 Months Insurance Payer Benefit Plan / Subscriber ID Effective Dates Phone Addre ss Type Group [employer] [id number] 2019-Alexandru [address] [place] [id number] 20 1 11 (Home) [facility] [place] [id number] Care Teams Beauty Sales Advisor Relationship Specialty Start Date End Date Santino Sauceda MD PCP - General Family Practice 10/22/201999 [place] [address]
--- OUTSIDE RECORDS SUMMARY | 2022-06-18 08:43 | XMS_ITS | Encounter Summary ---
:1970 [facility] Address [address], [place] [address] Care Team Providers Name Role Phone Raulito Saez Yemi LUNDBERG CNP Primary Care Provider Reason for Visit Reason Comments Follow-up Encounter Details Date Type Department Care Team Description 01/21/2015 Office Visit [facility] Brenda Copeland, Unspecified asthma(493.90) ( Primary Dx); [address] [facility] Nasal polyp; [place] [address] [address] Allergic rhinitis, cause uns pecified [phone] [place] [address] (Wo rk) Social History Tobacco Use Types Packs/Day Years Used Date Smoking Tobacco: Never Assessed Sex Assigned at Date Recorded Not on file documented as of this encounter Last Filed Vital Signs Vital Sign Reading Time Taken Comments Blood Pressure 126/78 01/21/2015 10:06 AM CDT Pulse 64 01/21/2015 10:06 AM CDT Temperature - - Respiratory Rate - - Oxygen Saturation 98% 01/21/2015 10:06 AM CDT Inhaled Oxygen Concentration - - Weight 102.5 kg (226 lb) 01/21/2015 10:06 AM CDT Height 182.9 cm (6') 01/21/2015 10:06 AM CDT Body Mass Index 30.65 01/21/2015 10:06 AM CDT documented in this encounter Patient Instructions Patient InstructionsBrenda Copeland MD - 01/21/2015 10:53 AM CDT Overall, continue doing exactly what you are doing. Try the Qnasl, a dry nasal spray. Same dose as Fluticasone. Compare how they feel and cost. Call with questions or problems. documented in this encounter Progress Notes Brenda Copeland MD - 01/21/2015 12:47 PM CDT Complete note dictated. Brenda Copeland MD - 01/21/2015 12:32 PM CDT Progress Notes signed by Brenda Copeland MD at 02/03/15918 Author: Brenda Copeland MD Service: (none) Author Type: Physician Filed: 02/03/15918 Note Time: 01/21/151602 Status: Signed Mailing Manager: Brenda Copeland MD (Physician) NAME: HAYDEN AMARO MR#: [id number] CSN: [id number] AUTHENTICATING CLINICIAN: Brenda Copeland MD CONFIRM #: [id number] LOC: 514 CLINIC PROGRESS NOTE DATE OF VISIT: 01/21/2015 : 1970 Hayden is a 44-year-old white male with asthma, previously complicated by gastroesophageal reflux, nasal polyposis and allergic rhinitis (most allergens other than trees). Years ago, he underwent a Robert fundoplication for reflux and has had no symptoms since that time. Overall, Hayden claims to be doing very well. He uses Advair 250/50 mcg 1 puff in the morning. He went the entire year until last week without needing his albuterol. He noted more postnasal drainage that seemed to land in his chest. He awoke feeling as if there was some pressure or something sitting on his chest. He took albuterol which offered no immediate benefit. Once he cleared his nose he felt better. Hayden has a torn meniscus w hich has limited his ability to run. He does do other aerobic exercise a minimum of 4 times per weekwith no breathing issues. No nighttime awakening because of breathing. Hayden had 1 cold that went into his chest. He saw his primary care provider, who is outside of the [facility] system, who provided antibiotics, which did seem to help. Again, he denies reflux being an issue. Hayden suspects polyps are back. Everybody else in the family has been miserable with allergies this last few weeks and he has had little issues. He does note some nasal congestion. His sense of smell has been markedly diminished for years. Nasal drainage varies from clear to thick, colored or bloody. He does do the saline rinses. Hayden is frustrated by his lack of exercise more associated with his knee. He has been otherwise in good health. He has 2 daughters, the older of whom will forego her senior year of high school and start [employer]. Two Labradoodle dogs. Nonsmoker. PHYSICAL EXAMINATION: VITAL SIGNS: BP 126/78, pulse 64 regular, height 72 inches, weight 226 pounds. O2 saturation 98% on room air. GENERAL: Healthy male. No obvious nasal congestion noted. SKIN: Warm, dry. No rash. HEENT: Eyes: Conjunctivae clear. PERRLA. Ears: Canals patent. TMs normal. Nose widely patent. Dry mucosa with small amount of scattered dried blood and purulence. No polyps. Oropharynx clear. Teeth andgums in good repair. NECK: Supple. No adenopathy. Thyroid not palpable. LUNGS: Clear with good air movement. No wheezes, rales, or rhonchi. CV: Regular rate and rhythm. Normal S1, S2. No murmurs, rubs, or gallops. Spirometry mildly decreased from previous. FEV1 3.68 L, 84%. FVC 4.74 L, 85%. Ratio 78%. Small airflow 3.05 L/S, 77% of predicted. IMPRESSION: 1. Asthma. Minimal symptoms with no interference in activity. Changes in spirometry can be associated with weight and change in activity. Although FDA approved for twice daily dosing, if Hayden is meeting all criteria of asthma control I would not increase medication. 2. Rhinitis of multifactorial etiology. Goal of treatment here is to improve quality of life. No polyps visualized on exam, which is different than previous years. I did provide a sample of QNASL, a dry nasal steroid spray. I do think it gets back further and sticks more. If it is covered by insurance, it may be an alternative to avoid surgery or intermittent bouts of systemic steroids. PLAN: 1. Ongoing allergen avoidance discussed. 2. Fluticasone or QNASL nasal spray, 2 sprays per naris daily. Compare efficacy and cost. 3. Continue Advair 250/50 mcg 1 puff in a.m., increasing to b.i.d. if needed. 4. Albuterol 2 puffs q. 4 hours p.r.n. 5. Add nonsedating antihistamine on a seasonal basis as needed. 6. Return to clinic with me in 1 year or p.r.n. EAGLE:MEDQ C: CONFIRM #: [id number] documented in this encounter Plan of Treatment Not on filedocumented as of this encounter Visit Diagnoses Diagnosis Unspecified asthma(493.90) ([facility]) - Prima ry Unspecified asthma Nasal polyp Unspecified nasal polyp Allergic rhinitis, cause unspecified documented in this encounter Care Teams Cable Splicing Technician Relationship Specialty Start Date End Date Raulito Saez, LIMNOLOGIST, NIB INSPECTOR PCP - General 12/24/10 09/25/18 documented as of this encounter
--- OUTSIDE RECORDS SUMMARY | 2022-06-18 08:43 | XMS_ITS | Encounter Summary ---
:1970 Author Organization [facility] Address [address] [address] Care Team Providers Name Role Phone Jossue Chapin MD Primary Care Provider Encounter Details Date Type Department Care Team Description 11/26/2020 Orders Only Initial Department Provider, O[place], [facility] DEBBIE REEDER MD [place], [place] [address] Interface provider [phone] [place] [address] Social History Tobacco Use Types Packs/Day Years [...] Name Priority Date/Time Associated Diagnosis Comme nts PULMONARY TEST TX 11/26/2020 Results fo r this procedure are in the resu lts section. documented in this encounter Results PULMONARY TEST TX (11/26/2020) Narrative This result has an attachment that is no t available. Interface Provider DUMMY/OTHER/AR documented in this encounter Visit Diagnoses Not on filedocumented in this encounter Care Teams Career Technical Education Teacher Relationship Specialty Start Date End Date Jossue Chapin MD PCP - General 09/26/181999 [place] [address] documented as of this encounter
--- OUTSIDE RECORDS SUMMARY | 2022-06-18 08:43 | XMS_ITS | Encounter Summary ---
:1970 Author Organization [employer] Address [address], [place] [address] Care Team Providers Name Role Phone Jossue Chapin MD Primary Care Provider Reason for Visit Reason Comments Refill Encounter Details Date Type Department Care Team Description 01/01/[address] [facility] [address] Brenda Guaman MD Refill [address] [place] [address] [place], [place] [phone] (Wo rk) Social History Tobacco Use Types Packs/Day Years Used Date Smoking Tobacco: Former Cigarettes 1 Quit : 1990 Smokeless Tobacco: Never Alcohol Use Standard Drinks/Week Comments Yes 3 (1 standard drink = 0.6 oz pure alcoho l) Sex Assigned at Date Recorded Not on file documented as of this encounter Nursing Notes Kristel Gallo RN - 01/01/2020 4:41 PM CDT Spoke with pt and informed of 's message lucia. Pt also needs Neb compressor but not sure if it will be covered by insurance. PT will call his insurance and then let us know so we can arrange a new Neb compressor Rx. Note complete. Brenda Copeland MD - 01/01/2020 4:29 PM CDT I sent the Rx for the pharmacy but please warn Hayden that if he is planning to use the nebulizer in case he gets the COVID-19 virus, it is NOT a good idea. The nebulizer aerosolizes the virus and the virus stays in the air for a long time so it is more likely to spread the virus to other family members. Radha Lutz LPN - 01/01/2020 3:46 PM CDT Pts last visit 11/19/19. Pt is asking for a refill on his Nebulizer solution, he has not filled in quite some time, asking to have on hand at home just in case. Please advise. documented in this encounter Plan of Treatment Not on filedocumented as of this encounter Visit Diagnoses Not on filedocumented in this encounter Care Teams Air Conditioning Unit Assembler Relationship Specialty Start Date End Date Jossue Chapin MD PCP - General 09/26/181999 [place] [address] documented as of this encounter
--- OUTSIDE RECORDS SUMMARY | 2022-06-18 08:43 | XMS_ITS | Encounter Summary ---
:1970 Author Organization [facility] Address [address], [place] [address] Care Team Providers Name Role Phone Jossue Chapin MD Primary Care Provider Encounter Details Date Type Department Care Team Description 11/23/2020 Notes/Orders [facility] Up Jossue Chapin, Preop examination [address] [place] [address] [address] [facility] [phone] [place], [place] [address] Social History Tobacco Use Types Packs/Day Years Used Date Smoking Tobacco: Former Cigarettes 1 Quit : 1990 Smokeless Tobacco: Never Alcohol Use Standard Drinks/Week Comments Yes 3 (1 standard drink = 0.6 oz pure alcoho l) Sex Assigned at Date Recorded Not on file documented as of this encounter Plan of Treatment Not on filedocumented as of this encounter Results Asymptomatic - 2019 Novel Coronavirus (COVID-19) (11/24/2020 9:20 AM WELDING TEACHER) [facility] Method Time Signature COVID-19 Not Not 11/24/2020 [facility] Interpretation Detected Detected 6:26 PM CENTRAL [facility] WELDING TEACHER Specimen Anatomical Collection Method Collection Time Receive d Time (Source) Location / / Volume Laterality Swab (Source Non-blood 11/24/2020 9:20 AM 9:33 Required) Collection / WELDING TEACHER AM WELDING TEACHER Unknown Narrative [facility] - 11/24/2020 6:26 PM WELDING TEACHER Test performed by Headend Technician Mediated Amplification. TMA has been shown to be equivalent to commercial real-time PCR t ests. This test has been authorized by the FDA under an Emergency Use Authorization (EUA) for use by authorized laboratories. Jossue Cahpin MD LAB_1 Performing Organization Address City/State/ZIP Code Phon e Number [facility] [address] [address] documented in this encounter Visit Diagnoses Diagnosis Preop examination Preoperative examination, unspecified documented in this encounter Care Teams Hand Mounter Relationship Specialty Start Date End Date Jossue Chapin MD PCP - General 09/26/181999 [place] [address] documented as of this encounter
--- OUTSIDE RECORDS SUMMARY | 2022-06-18 08:43 | XMS_ITS | Encounter Summary ---
:1970 Author Organization [facility] [employer] Address [address] [place] [address] Care Team Providers Name Role Phone Jossue Chapin MD Primary Care Provider Reason for Visit Reason Comments Follow-up Asthma Encounter Details Date Type Department Care Team Description 11/26/2020 Office Visit [facility] [address] Brenda Copeland, Mode rate persistent asthma, unspecified whether complicated (Primary Dx); Allergy Allergic rhinitis, unspecified seasonali ty, unspecified trigger; [address] polyp; [address] [place] [phone] (Wo rk) Social History Tobacco Use Types [...] Comments Blood Pressure 123/84 11/26/2020 3:27 PM [facility] Pulse 71 11/26/2020 3:27 PM [facility]OR [facility]ULATORY AGENCY Temperature - - Respiratory Rate - - Oxygen Saturation 97% 11/26/2020 3:27 PM DIRECTOR [facility]ULATORY AGENCY Inhaled Oxygen Concentration - - Weight 101.6 kg (224 lb) 11/26/2020 3:27 PM [facility]ULATORY AGENC[facility] Height 182.9 cm (6') 11/26/2020 3:27 PM DIRECTOR REGULATORY AGENCY Body Mass Index 30.38 11/26/2020 3:27 PM DIRECTOR REGULATORY AGENCY documented in this encounter Patient Instructions Patient InstructionsBrenda Copeland MD - 11/26/2020 3:20 PM CST Your breathing tests are normal. Normal tests do not completely rule out asthma but there is a lot of good with normal tests. Keep moving! It is good for your lungs and every other part of your body as well. Expect to hear from me with the lab results tomorrow. I will do NOTHING with your insurance and Dup[employer] until you tell me to do something [facility] documented in this encounter Progress Notes Brenda Copeland MD - 11/26/2020 3:20 PM CST ?? Hayden is a 50-year-old white male with asthma, chronic sinusitis, and history of nasal polyposis (last surgery 2018, Dr. Kevin Echevarria) along with allergic rhinitis (positive to most antigens tested). ?History of GERD treated with a Robert fundoplication years ago. Hayden uses Wixela 250/50 mcg 1 puff in the morning. He may have used albuterol once or twice in the past 3 months. He recalls 1 occasion after being around other dogs. He denies any ongoing cough, wheezing, shortness of breath or chest tightness. He is exercising regularly with no interference of activity. No nighttime awakening. No acute infections. ACT 24. CBC (08/2016) eosinophil count 200. Hayden suspects his polyp is returning. He has cycles of clear rhinorrhea followed by congestion in the feeling as if there is a plug or mucus cap. Once he is able to blow it out, the cycle repeats itself. He uses fluticasone nasal spray daily and nasal saline washes with budesonide 0.5 mg weekly. Sense of smell varies with congestion. He has started snoring within last 3-4 months. Hayden express frustration in the number of medications taken on a daily basis. Worsening hair loss has also been a recent problem. Previous evaluation by Rheumatology failed to provide answers. His dampener to his outside the [employer] system asks for recent thyroid tests. Hayden has had problems finding a lab the will order the test for him. Hayden has 2 daughters.??There are 3 Labradoodle dogs. ??Nonsmoker. 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 PHYSICAL EXAM: BP 123/84 (BP Location: Right Arm, BP Cuff Size: Regular - Long) Pulse 71 Ht 1.829 m (6') Wt 101.6 kg (224 lb) SpO2 97% BMI 30.38 kg/m?? Healthy appearing adult male. Skin: No rashes. Head shaven. Obvious patches of alopecia. Eyes: Conjunctiva clear. PERRL. Ears: Canals patent. TMs normal. Nose: Healthy-appearing mucosa, normal coloration, moist membranes. Polyp noted in posterior left nasal cavity. No edema or purulence. Oropharynx: Surgically absent uvula. Teeth and gums in good repair. Neck: No palpable adenopathy. No thyromegaly. Lungs: Clear lung gardiner, with good air movement. No wheezes, rales or rhonchi. CV: RRR. Normal S1, S2. No murmurs, rubs or gallops. OBJECTIVE TESTS: PFT: Normal volumes with no obstruction on inspiratory or expiratory flow volume loops. FEV1: 3.94 L, 94 % of predicted. FVC: 4.89 L, 90 % of predicted. FEV1/FVC: 81, 103% of predicted. Small air flow:3.63 L/sec, 99% of predicted. NIOX: 16 ppb. No previous test for comparison. IMPRESSION: 1. Persistent asthma. Minimal symptoms with stable objective tests. 2. Allergic rhinitis 3. Recurrent polypoid sinusitis PLAN: 1. Importance of ongoing exercise emphasized 2. Fluticasone-salmeterol 250-50 mcg 1 puff in a.m. increasing to b.i.d. as needed 3. Albuterol MDI 2 puffs or 1 nebulized treatment q.4 hours p.r.n. 4. Continue fluticasone nasal spray 2 sprays per nares daily. 5. Nasal saline washes adding budesonide 0.5 mg as frequently as daily based on symptoms 6. Thyroid function and CBC to consider possible treatment with an immune modulating treatment 7. Return to clinic with me 1 year or p.r.n. Total time of visit spent with patient was 29 minutes. Additional time spent with chart review and documentation. [facility] documented in this encounter Plan of Treatment Not on filedocumented as of this encounter Results TSH with Free T4 (if TSH Abnormal) (11/26/2020 4:21 PM DIRECTOR [facility]UL[facility]ORY AGENCY) P athologist Signature TSH, Reflex 1.34 0.30 - 4.50 11/26/2020 [facility] uIU/mL 8:18 PM [facility] LABORATORY Specimen Anatomical Collection Method / Collection Time Recei randy Time (Source) Location / Volume Laterality Blood Venipuncture / 11/26/2020 4:21 11/26/2020 4:22 Unknown PM [facility] PM [facility] Narrative [facility] - 11/26/2020 8:18 P M [facility] Lab will automatically reflex to Free T4 when TSH results are outside of reference range for patient's age group. Brenda Copeland MD LAB_1 Performing Organization Address City/State/ZIP Code Phon e Number [facility] [address] [place] [address] documented in this encounter Visit Diagnoses Diagnosis Moderate persistent asthma, unspecified whether complicated ([facility]) - Primary Allergic rhinitis, unspecified seasonali ty, unspecified trigger Nasal polyp Unspecified nasal polyp Alopecia areata documented in this encounter Care Teams Polymer Chemist Relationship Specialty Start Date End Date Jossue Chapin MD PCP - General 09/26/181999 [place] [address] documented as of this encounter
--- OUTSIDE RECORDS SUMMARY | 2022-06-18 08:43 | XMS_ITS | Encounter Summary ---
:1970 Author Organization [employer] Address [address], [place] [address] Care Team Providers Name Role Phone Jossue Chapin MD Primary Care Provider Reason for Visit Reason Onset Date Comments Refill 12/07/2021 Encounter Details Date Type Department Care Team Description 12/07/2021 Refill [facility] [address] Brenda Guaman MD Refill [address] [place] [address] [place], [place] [address] (Wo rk) Social History Tobacco Use Types Packs/Day Years Used Date Smoking Tobacco: Former Cigarettes 1 Quit : 1990 Smokeless Tobacco: Never Alcohol Use Standard Drinks/Week Comments Yes 3 (1 standard drink = 0.6 oz pure alcoho l) Sex Assigned at Date Recorded Not on file documented as of this encounter Nursing Notes Hemalatha Kelley RN - 12/09/2021 11:04 AM CDT Patient left message stating they do need refill prior to visit. Rx sent per SO. Informed patient. Note complete. Odalis Dudley RN - 12/09/2021 10:29 AM CDT Provider EAGLE. LV: 11/26/20. MD plan: Return to clinic with me 1 year or p.r.n. FV: Yes - Date: 12/15/21. Refill request for Wixela. Left message with patient to call back to check if he needs refill prior to upcoming appointment. documented in this encounter Plan of Treatment Not on filedocumented as of this encounter Visit Diagnoses Not on filedocumented in this encounter Care Teams Welt Stitcher Relationship Specialty Start Date End Date Jossue Chapin MD PCP - General 09/26/181999 [place] [address] documented as of this encounter
--- OUTSIDE RECORDS SUMMARY | 2022-06-18 08:43 | XMS_ITS | Encounter Summary ---
:1970 Author Organization [facility] Address [address] [address] Care Team Providers Name Role Phone Raulito Saez Yemi LUNDBERG, POLITICAL ADVISOR Primary Care Provider [phone] Reason for Visit Reason Comments URI SOB (SHORTNESS OF BREATH) Encounter Details Date Type Department Care Team Description 02/22/2013 Office Visit [facility] Ema Moore Asthma with acute exacerbation (Primary Dx); Guzman Granados MD URI (upper respiratory infection); [address] [address] [address] [address] Allergic rhinitis, cause uns pecified; [place], [place] [address] Nasal polyp [id number] [place] [address] Social History Tobacco Use Types Packs/Day Years Used Date Smoking Tobacco: Never Assessed Sex Assigned at Date Recorded Not on file documented as of this encounter Last Filed Vital Signs Vital Sign Reading Time Taken Comments Blood Pressure 124/86 02/22/2013 8:59 AM CDT Pulse 62 02/22/2013 8:59 AM CDT Temperature 36.6 ??C (97.9 ??F) 02/22/2013 8:59 AM CDT Respiratory Rate 16 02/22/2013 8:59 AM CDT Oxygen Saturation 96% 02/22/2013 8:59 AM CDT Inhaled Oxygen Concentration - - Weight 97.8 kg (215 lb 9.6 oz) 02/22/2013 8:59 AM CDT Height 185.4 cm (6' 1) 02/22/2013 8:59 AM CDT Body Mass Index 28.45 02/22/2013 8:59 AM CDT documented in this encounter Patient Instructions Patient InstructionsEma Moore MD - 02/22/2013 9:25 AM CDT Flonase - increase to 2 sprays twice daily until you are feeling better Start zyrtec D 1 tablet twice daily until you are feeling better Use your Albuterol inhaler every 4 hours for the next 48 hours and then as needed for shortness of breath, wheezing, chest tightness Start prednisone if no improvement in 1-2 days documented in this encounter Progress Notes Ema Moore MD - 02/22/2013 10:48 AM CDT Subjective: Patient ID: Hayden Mckay is a 42 y.o. male. Chief Complaint: Chief Complaint Patient presents with ??? URI (COLD) cough since tuesday ??? Shortness of Breath (SOB) HPI: 42-year-old gentleman presents late for his appointment today for evaluation of cough. Patient reports that he began having cold symptoms for 5 days ago with sneezing, nasal congestion, postnasal drip, productive cough and for the past 2-3 days has been feeling mild shortness of breath and mid chest tightness. Denies sore throat, fever, chills. Does have a history of asthma, allergic rhinitis and nasal polyps. Is using Advair twice daily as recommended and Flonase daily as recommended. Tried one dose of Sudafed yesterday which was not helpful. Used albuterol MDI once yesterday which helped decrease cough for approximately 30 minutes. Daughter was recently ill with cold symptoms as well. Review of Systems General: no chills, fatigue, fever or night sweats or weight changes Ophthalmic: no blurry vision or discharge ENT: no sore throat Respiratory: no wheezing Cardiovascular: no chest pain or palpitations Gastrointestinal: no abdominal pain, diarrhea, constipation, heartburn, nausea, vomiting Genito-Urinary: no dysuria, trouble voiding, or hematuria Musculoskeletal: no unusual muscle or joint pain Neurological: no confusion, dizziness, headaches, numbness/tingling, speech problems or weakness Dermatological: no rash or changing skin lesions Psychological: no anxiety or depression Allergy and Immunology: no hives, itchy/watery eyes or seasonal allergies Hematological and Lymphatic: no easy bruising or personal history of blood clots Endocrine: no temperature instability, urinary frequency or excessive thirst Current Outpatient Prescriptions Medication Sig ??? ADVAIR DISKUS 250-50 mcg/dose diskus inhaler INHALE 1 PUFFS TWICE DAILY - RINSE MOUTH/GARGLE AFTER USE ??? albuterol (VENTOLIN HFA) 90 mcg/actuation inhaler Inhale 2 puffs every 4 hours as needed. HOLD rx on file until pt. requests refill. ??? fluticasone (FLONASE) 50 mcg/actuation nasal spray Place 2 sprays into each nostril daily (every24 hours). Dose is for each nostril. Indications: ALLERGIC RHINITIS Allergies Allergen Reactions ??? Levofloxacin LW Reaction: internal bleeding ??? Prednisone LW Reaction: internal bleeding Patient Active Problem List Diagnosis ??? Asthma NOS ??? Gastroesophageal Reflux Disease ??? Rhinitis Allergic NOS ??? Diverticulitis of colon with perforation ??? Anemia ??? Diarrhea ??? Nasal polyp History Substance Use Topics ??? Smoking status: Never Smoker ??? Smokeless tobacco: Not on file ??? Alcohol Use: 1.8 oz/week 3 Cans of beer per week Objective: BP 124/86 Pulse 62 Temp(Src) 97.8 ??F (36.6 ??C) (Oral) Resp 16 Ht 6' 1 (1.854 m) Wt 215 lb 9.6 oz (97.796 kg) BMI 28.45 kg/m2 SpO2 96% General: Overweight, no acute distress, appears stated age Head: Normocephalic, atraumatic Eyes: Sclerae and Conjuntivae clear Ears: canals clear bilaterally, bilateral TMs with air bubbles, air-fluid levels Nose: no discharge Throat: Moist mucous membranes, oropharynx clear with no tonsillar hypertrophy or exudate Neck: No masses, no thyromegaly, no lymphadenopathy Respiratory: Clear to auscultation bilaterally, good air movement bilaterally Extremities: No clubbing, no cyanosis, no edema Psych: Alert, appropriate affect, answers questions appropriately Neuro: gait normal Assessment: Diagnosis (ICD9) 1. Asthma with acute exacerbation (493.92) 2. URI (upper respiratory infection) (465.9) 3. Rhinitis Allergic NOS (477.9) 4. Nasal polyp (471.9) Plan: 1. Asthma exacerbation-continue Advair twice daily. Start albuterol MDI every 4 hours scheduled forthe next 48 hours. Fill prescription for prednisone if no significant improvement in shortness of breath or chest tightness in one to 2 days (patient states he has a prescription at home from his web engineer). ACT score 21 today. ER and urgent care precautions reviewed with patient today. 2. URI-discussed likely viral etiology and no antibiotics are warranted at this time. Recommend Zyrtec-D available [id number] for symptomatic relief of nasal congestion and postnasal drip. 3. Allergic rhinitis-per web engineer. Continue Flonase but recommend increasing to twice daily until URI symptoms resolved. 4. Nasal polyps-no improvement with various nasal steroids, has had ENT surgery in the past with polyp regrowth. Patient Instructions Flonase - increase to 2 sprays twice daily until you are feeling better Start zyrtec D 1 tablet twice daily until you are feeling better Use your Albuterol inhaler every 4 hours for the next 48 hours and then as needed for shortness of breath, wheezing, chest tightness Start prednisone if no improvement in 1-2 days Ema Moore MD 02/22/2013 10:40 AM This note has been partially dictated or transcribed and may have minor errors in wording and typographical errors. documented in this encounter Plan of Treatment Not on filedocumented as of this encounter Visit Diagnoses Diagnosis Asthma with acute exacerbation (HRC) - P rimary Unspecified asthma, with exacerbation URI (upper respiratory infection) Acute upper respiratory infections of un specified site Allergic rhinitis, cause unspecified Nasal polyp Unspecified nasal polyp documented in this encounter Care Teams Tubing Oiler Relationship Specialty Start Date End Date Raulito Saez, WEBBING INSPECTOR, POLITICAL ADVISOR PCP - General 12/24/10 09/25/18 documented as of this encounter
--- OUTSIDE RECORDS SUMMARY | 2022-06-18 08:43 | XMS_ITS | Encounter Summary ---
:1970 Author Organization [facility] Address [address], [place] [address] Care Team Providers Name Role Phone Raulito Saez APRN, CNP Primary Care Provider [phone] Reason for Visit Reason Comments Refill Encounter Details Date Type Department Care Team Description 11/08/2012 Refill [facility] [address] Mirella Serrano Refill [address] [place], [place] [id number] Social History Tobacco Use Types Packs/Day Years Used Date Smoking Tobacco: Never Assessed Sex Assigned at Date Recorded Not on file documented as of this encounter Nursing Notes Mirella Serrano - 11/08/2012 2:52 PM CST [facility] Per Hayden's request, Advair 250/50 refills faxed to pharmacy. documented in this encounter Plan of Treatment Not on filedocumented as of this encounter Visit Diagnoses Not on filedocumented in this encounter Care Teams Oil Plant Operator Relationship Specialty Start Date End Date Raulito Saez APRN, CNP PCP - General 12/24/10 09/25/18 documented as of this encounter
--- OUTSIDE RECORDS SUMMARY | 2022-06-18 08:43 | XMS_ITS | Encounter Summary ---
:1970 Author Organization [facility] Address [address], [place] [address] Care Team Providers Name Role Phone Raulito Saez CHITO LUNDBERG Primary Care Provider Reason for Visit Reason Comments Refill Encounter Details Date Type Department Care Team Description 06/21/2016 Refill [facility] Brenda Copeland MD Refill [address] [employer] [address] [place] [id number] [place] [address] (Wo rk) Social History Tobacco Use Types Packs/Day Years Used Date Smoking Tobacco: Former Cigarettes 1 Quit : 1990 Alcohol Use Standard Drinks/Week Comments Yes 3 (1 standard drink = 0.6 oz pure alcoho l) Sex Assigned at Date Recorded Not on file documented as of this encounter Nursing Notes Sherri Marin RN - 06/23/2016 8:25 AM CDT Rx sent per [facility]. Brenda Copeland MD - 06/22/2016 5:27 PM CDT Prednisone 20 mg bid for 5-7 days. Sherri Marin RN - 06/22/2016 5:00 PM CDT Detailed message left for patient, notifying him we will send rx. [facility] - please clarify sig, rx that is requested is for 10mg tabs, with taper. Previously been sent as20mg BID x 5 days. Brenda Copeland MD - 06/22/2016 4:57 PM CDT OK 1 rx with no refills. If used, he will call and we can use that to track frequency of use. Radha Lutz LPN - 06/22/2016 4:37 PM CDT Pt called back. Pt states he always has a back up rx for Prednisone at home to have for flares, Pt fine now. Please advise on refills Jennifer Browne RN - 06/22/2016 2:56 PM CDT [facility] pt last seen 04/20/16. Follow up plan 1 year. Refill request for Pred. Performance Test Architect called pt and left voicemail, requesting a return call to verify need of medication. Brenda Copeland MD - 06/22/2016 2:40 PM CDT Please contact Hayden and ask why he needs to refill documented in this encounter Plan of Treatment Not on filedocumented as of this encounter Visit Diagnoses Not on filedocumented in this encounter Care Teams Tobacco Sprayer Relationship Specialty Start Date End Date Raulito Saez, SALES ENABLEMENT ANALYST, TOOL AND DIE MACHINIST PCP - General 12/24/10 09/25/18 documented as of this encounter
--- OUTSIDE RECORDS SUMMARY | 2022-06-18 08:43 | XMS_ITS | Encounter Summary ---
:1970 Author Organization [facility] Address [address] [place] [address] Care Team Providers Name Role Phone Jossue Chapin MD Primary Care Provider Reason for Visit Reason Comments Follow-up Asthma Encounter Details Date Type Department Care Team Description 12/15/2021 Office Visit [facility] Brenda Copeland, Moderate persistent asthma, unspecified whether complicated (Primary Dx); [address] Otf Berkowitz MD Allergic rhinitis, unspecified seasonali ty, unspecified trigger; [place] [address] [address] [facility] Nasal polyp [phone] [place] [address] (Wo rk) Social History Tobacco [...] Sign Reading Time Taken Comments Blood Pressure - - Pulse - - Temperature - - Respiratory Rate - - Oxygen Saturation - - Inhaled Oxygen Concentration - - Weight 103.1 kg (227 lb 6.4 oz) 12/15/2021 3:24 PM CDT Height 182.9 cm (6') 12/15/2021 3:24 PM CDT Body Mass Index 30.84 12/15/2021 3:24 PM CDT documented in this encounter Patient Instructions Patient InstructionsBrenda Copeland MD - 12/15/2021 3:20 PM CDT Potential steps before surgery: Xhance, similar Fluticasone but the device gets the medication further into the sinus cavity where it can help more Dupixent Call me if you want to pursue either option documented in this encounter Progress Notes Brenda Copeland MD - 12/15/2021 3:20 PM CDT Hayden is a 51-year-old white male with asthma, chronic sinusitis, and history of nasal polyposis (last surgery 2019, Dr. Kevin Echevarria) along with allergic rhinitis (positive to most antigens tested) and alopecia.?History of GERD treated with a Robert fundoplication years ago. No issues with GERD following surgery. ?? Hayden uses Wixela 250/50 mcg 1 puff in the morning. He denies any ongoing cough, wheezing, shortnessof breath or chest tightness. if he does cough, he tends to associated with postnasal drainage and sinus congestion. He is exercising regularly with no interference of activity. He does not recall using albuterol at all this past year. No nighttime awakening. No acute infections. ACT 25. CBC (11/2020) eosinophil count 200. ?? Hayden suspects his polyp is returning because of increased drainage. He has an upcoming appointment with Dr. Echevarria, ENT. He uses fluticasone nasal spray daily and nasal saline washes with budesonide 0.5 mg weekly. Sense of smell varies with congestion. We spoke about Dupixent at last visit. He has little interest in trying the medication currently. ?? Hayden has 2 daughters.??There are 3 Labradoodle dogs. ??Nonsmoker. 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 PHYSICAL EXAM: Ht 1.829 m (6') Wt 103.1 kg (227 lb 6.4 oz) BMI 30.84 kg/m?? Healthy appearing male with head shavenn. Skin: No rashes. Eyes: Conjunctiva clear. PERRL. Ears: Canals patent. TMs normal. Nose: Healthy-appearing mucosa, normal coloration, moist membranes. No edema, purulence or polyps. Oropharynx: Absent uvula. Teeth and gums in good repair. Neck: No palpable adenopathy. No thyromegaly. Lungs: Clear lung gardiner, with good air movement. No wheezes, rales or rhonchi. CV: RRR. Normal S1, S2. No murmurs, rubs or gallops. OBJECTIVE TESTS: PFT: Normal without obstruction unchanged compared to previous. FEV1: 3.73 L, 89 % of predicted. FVC: 4.82 L, 89 % of predicted. FEV1/FVC: 77, 99% of predicted. Small air flow: 3.14 L/sec, 86% of predicted. NIOX: 17 ppb, previous test 16 ppb. IMPRESSION: 1. Persistent asthma. Minimal symptoms with stable objective tests are both reassuring. 2. Allergic rhinitis 3. Recurrent polypoid sinusitis I did not see evidence of polyposis on exam. I would be interested to hear Dr. Echevarria's findings. Options for additional intervention include trial of Dupixent, Xhance and immunotherapy (least likely to offer benefit in my opinion). PLAN: 1. Fluticasone-salmeterol 250-50 mcg 1 puff b.i.d. 2. Albuterol MDI 2 puffs or 1 nebulized treatment q.4 hours p.r.n. 3. Budesonide 0.5 milligrams in nasal saline wash several times per week, dose adjusted based on symptoms 4. Fluticasone nasal spray 2 sprays per nares daily 5. Return to clinic with me 1 year or p.r.n. Total time of visit including time spent with patient, chart review and coordination of care was 25 minutes. documented in this encounter Plan of Treatment Not on filedocumented as of this encounter Visit Diagnoses Diagnosis Moderate persistent asthma, unspecified whether complicated (HRC) - Primary Allergic rhinitis, unspecified seasonali ty, unspecified trigger Nasal polyp Unspecified nasal polyp documented in this encounter Care Teams Plate Gauger Relationship Specialty Start Date End Date Jossue Chapin MD PCP - General 09/26/181999 [place] [address] documented as of this encounter
--- OUTSIDE RECORDS SUMMARY | 2022-06-18 08:43 | XMS_ITS | Encounter Summary ---
:1970 Author Organization [employer] Address [address], [place] [address] Care Team Providers Name Role Phone Raulito Saez CHITO LUNDBERG Primary Care Provider [phone] Reason for Visit Reason Comments Refill Encounter Details Date Type Department Care Team Description 09/23/2012 Refill [facility] [address] Brenda Guaman MD Refill [address] [place] [address] [place], [place] [address] (Wo rk) Social History Tobacco Use Types Packs/Day Years Used Date Smoking Tobacco: Never Assessed Sex Assigned at Date Recorded Not on file documented as of this encounter Nursing Notes Devyn Rock - 09/25/2012 11:00 AM CST Left message to schedule appt., reminder letter sent. Benita Corona RN - 09/25/2012 10:49 AM CST [facility] pt:last seen 09/02/11 no f/u appt/please call pt and schedule f/u appt.note ..Rx faxed x 1 for advair 250/50. documented in this encounter Plan of Treatment Not on filedocumented as of this encounter Visit Diagnoses Not on filedocumented in this encounter Care Teams Business Services Administrator Relationship Specialty Start Date End Date Raulito Saez APRN, MANAGER MEDICARE MARKETING PCP - General 12/24/10 09/25/18 documented as of this encounter
--- OUTSIDE RECORDS SUMMARY | 2022-06-18 08:43 | XMS_ITS | Encounter Summary ---
:1970 Author Organization [employer] Address [address], [place] [address] Care Team Providers Name Role Phone Raulito Saez Yemi LUNDBERG CNP Primary Care Provider [phone] Reason for Visit Reason Comments Refill Encounter Details Date Type Department Care Team Description 04/28/2017 Refill [facility] Brenda Copeland MD Refill [address] [facility] [address] [place] [id number] [place] [address] (Wo rk) Social History Tobacco Use Types Packs/Day Years Used Date Smoking Tobacco: Former Cigarettes 1 Quit : 1990 Alcohol Use Standard Drinks/Week Comments Yes 3 (1 standard drink = 0.6 oz pure alcoho l) Sex Assigned at Date Recorded Not on file documented as of this encounter Nursing Notes Lilia Rosario - 04/29/2017 10:10 AM CDT Letter sent. Jennifer Browne, RN - 04/29/2017 9:58 AM CDT [facility] pt last seen 8.2.16, follow up plan 1 year, no appt scheduled. Refill request for Advair. Per [facility] faxed to pharmacy. [facility] please help pt schedule follow up appt and then close encounter. documented in this encounter Plan of Treatment Not on filedocumented as of this encounter Visit Diagnoses Not on filedocumented in this encounter Care Teams Residential Assistant Relationship Specialty Start Date End Date Raulito Saez, CELL REPAIRER, AGRIBUSINESS PROFESSOR PCP - General 12/24/10 09/25/18 documented as of this encounter
--- OUTSIDE RECORDS SUMMARY | 2022-06-18 08:43 | XMS_ITS | Encounter Summary ---
:1970 Author Organization [facility] Address [address] [address] Care Team Providers Name Role Phone Raulito Saez Yemi LUNDBERG CNP Primary Care Provider [phone] Reason for Visit Reason Comments Follow-up Encounter Details Date Type Department Care Team Description 04/20/2016 Office Visit [facility] Brenda Copeland, Uncomplicated asthma, unspec ified asthma severity (HRC) (Primary Dx); [address] Otf Berkowitz MD Allergic rhinitis, unspecified allergic rhinitis type; [place] [address] [address] [facility] Chronic pansinusitis [phone] [place] [address] Social History Tobacco Use Types Packs/Day Years Used Date Smoking Tobacco: Never Assessed Sex Assigned at Date Recorded Not on file documented as of this encounter Last Filed Vital Signs Vital Sign Reading Time Taken Comments Blood Pressure 130/78 04/20/2016 8:45 AM CDT Pulse 80 04/20/2016 8:45 AM CDT Temperature - - Respiratory Rate - - Oxygen Saturation 96% 04/20/2016 8:45 AM CDT Inhaled Oxygen Concentration - - Weight 102.5 kg (226 lb) 04/20/2016 8:45 AM CDT Height 182.9 cm (6') 04/20/2016 8:45 AM CDT Body Mass Index 30.65 04/20/2016 8:45 AM CDT documented in this encounter Patient Instructions Patient InstructionsHarBrenda moore MD - 04/20/2016 9:23 AM CDT Ask the ENT about a nasal steroid spray in addition to the budesonide washes. I would use the Advair 1 puff 2x per day until you are back to baseline then change the evening doseto as needed. If you want to try Breo, call me and we will arrange for that to happen. documented in this encounter Progress Notes Brenda Copeland MD - 04/20/2016 9:50 AM CDT Complete note dictated. Brenda Copeland MD - 04/20/2016 9:50 AM CDT Progress Notes signed by Brenda Copeland MD at 04/28/161728 Author: Brenda Copeland MD Service: (none) Author Type: Physician Filed: 04/28/161728 Note Time: 04/20/161726 Status: Signed Patient Relations Liaison: Brenda Copeland MD (Physician) NAME: HAYDEN AMARO MR#: [id number] CSN: [id number] AUTHENTICATING CLINICIAN: Brenda Copeland MD CONFIRM #: [id number] LOC: 514 CLINIC PROGRESS NOTE DATE OF VISIT: 04/20/2016 : 1970 The patient is a 45-year-old white male with asthma, chronic sinusitis, nasal polyposis, and allergic rhinitis (positive to all antigens other than trees). Many years ago he underwent a Robert fundoplication for reflux, which did improve his asthma at that time. The patient uses Advair 250/50 mcg 1 puff in the morning. As long as he uses it regularly, he denies any symptoms including cough, shortnessof breath, wheezing, chest tightness. He goes months without using his albuterol. He ran out 4 days ago and has noted more pressure and shortness of breath. No colds that have gone into his chest. He is exercising regularly with no interference in activity because of breathing issues. The patient is convinced nasal symptoms drive asthma. He did see an ENT in [place] with repeat sinus imaging studies. He was scheduled for surgery that was ultimately postponed. He had a marked exacerbation of symptoms while on vacation in [place]. He felt his sinuses were completely compacted with copious chronic clear drainage. He was seen at [facility] for questionable CSF leak, which turned outnot to be the case. He is now under the care of an ENT there. He is using saline washes with budesonide. Nasal steroid sprays have been stopped. He does note some congestion, but his sense of smell hasreturned. Of note, he has tolerated Naprosyn and other NSAIDs without problems. The patient has been in otherwise good health. Nonsmoker. Two dogs; 1 labradoodle, 1 miniature poodle/bichon mix. PHYSICAL EXAM: Healthy male, no acute distress. SKIN: Warm, dry. No rash. Eyes: Conjunctivae clear. PERRLA. Ears: Canals patent. TMs normal. Nose: Anteriorly normal with no edema. Pale mucosa. Clear drainage, no purulence. There is a polyp obstructing the posterior portion of left nasal cavity. Oropharynx: Clear. Surgically absent uvula. Teeth and gums: Good repair. NECK: Supple. No adenopathy. Thyroid not palpable. LUNGS: Clear with good air movement. No wheezes, rales, or rhonchi. CV: Regular rate and rhythm. Normal S1, S2. No murmurs, rubs, or gallops. Spirometry showing a decrease in more obstructive pattern compared to baseline. FEV1 3.08 L, 71%; FVC 4.22 L, 76%; ratio 73%; small airflow 2.26 L/s, 58% of predicted. IMPRESSION: 1. Asthma. I completely agree that sinus congestion influence is asthma. We did discuss alternatives, specifically Breo, and the patient preferred to stay on his current regimen. I suggest using the Advair twice daily until back to baseline, then taper to once daily in the morning and use second dose as needed only. Importance of ongoing exercise encouraged. If symptoms and/or bronchodilator use change, and especially if there is not a good reason why, further evaluation is warranted. Seasonal flu shot encouraged. 2. Rhinitis/chronic sinusitis. I suspect there are many factors contributing. Benefits of nasal saline with topical steroids discussed. I would ask ENT about adding back a nasal steroid spray in addition to the budesonide washes. No interest or indication for immunotherapy at this time. PLAN: 1. Allergen avoidance encouraged. 2. Advair 250/50 mcg 1 puff b.i.d. Rinse mouth after use. 3. Albuterol 2 puffs q.4 hours p.r.n. 4. Seasonal flu shot encouraged. 5. Ongoing exercise encouraged. 6. Return to clinic with me in 1 year or p.r.n. [facility]:NOHEMY C: CONFIRM #: [id number] documented in this encounter Plan of Treatment Not on filedocumented as of this encounter Visit Diagnoses Diagnosis Uncomplicated asthma, unspecified asthma severity (HRC) - Primary Allergic rhinitis, unspecified allergic rhinitis type Chronic pansinusitis Other chronic sinusitis documented in this encounter Care Teams Anodiser Relationship Specialty Start Date End Date Raulito Saez, PAN OPERATOR, RECREATION THERAPY AIDES TEACHER PCP - General 12/24/10 09/25/18 documented as of this encounter
--- OUTSIDE RECORDS SUMMARY | 2022-06-18 08:43 | XMS_ITS | Encounter Summary ---
:1970 Author Organization [facility] Address [address], [place] [address] Care Team Providers Name Role Phone Raulito Saez APRN, CNP Primary Care Provider [phone] Reason for Visit Reason Comments Post Hospital Discharge Follow Up Encounter Details Date Type Department Care Team Description 04/09/2012 Telephone [facility] Raulito Saez P [facility] [place] [address] [place] [address] [place] [address] [phone] (Wo rk) Social History Tobacco Use Types Packs/Day Years Used Date Smoking Tobacco: Never Assessed Sex Assigned at Date Recorded Not on file documented as of this encounter Nursing Notes Alyse Loving RN - 04/09/2012 10:26 AM CDT Post hospitalization discharge follow up call completed. See doc flowsheet: [facility] for details. Patient has his primary care through a physician in [place] and that is where he will have his follow-up care. documented in this encounter Plan of Treatment Not on filedocumented as of this encounter Visit Diagnoses Not on filedocumented in this encounter Care Teams Study Manager Relationship Specialty Start Date End Date Raulito Saez, AUTOMOBILE RELOCATION ENGINEER, LOKIE DRIVER PCP - General 12/24/10 09/25/18 documented as of this encounter
--- OUTSIDE RECORDS SUMMARY | 2022-06-18 08:43 | XMS_ITS | Encounter Summary ---
:1970 Author Organization [facility] Address [address] [address] Care Team Providers Name Role Phone Raulito Saez APRN, CNP Primary Care Provider [phone] Reason for Visit Reason Comments Refill Encounter Details Date Type Department Care Team Description 01/23/2016 Refill [facility] Brenda Copeland MD Refill [address] [place] [phone] [place] [phone] (Wo rk) Social History Tobacco Use Types Packs/Day Years Used Date Smoking Tobacco: Never Assessed Sex Assigned at Date Recorded Not on file documented as of this encounter Nursing Notes Sherri Marin RN - 01/23/2016 1:21 PM CDT [facility] pt. [facility] 01/21/15 to f/u 1 year, appt scheduled 02/03/16, refilled Advair x 1 per SO documented in this encounter Plan of Treatment Not on filedocumented as of this encounter Visit Diagnoses Not on filedocumented in this encounter Care Teams Yacht Rigger Relationship Specialty Start Date End Date Raulito Saez APRN, CNP PCP - General 12/24/10 09/25/18 documented as of this encounter
--- OUTSIDE RECORDS SUMMARY | 2022-06-18 08:43 | XMS_ITS | Encounter Summary ---
:1970 Author Organization [employer] [facility] [employer] Address [address], [place] [address] Care Team Providers Name Role Phone Raulito Saez Yemi LUNDBERG CNP Primary Care Provider [phone] Encounter Details Date Type Department Care Team Description 09/01/2016 Lab Visit [facility] Alopecia areata [address] [place] [address] Social History Tobacco Use Types Packs/Day Years [...] Procedure Name Priority Date/Time Associated Comments Diagnosis EXTRACTABLE NUCLEAR Routine 09/01/2016 11:42 Alopecia areata R esults for this ANTIGEN ANTIBODIES AM REAMING PRESS OPERATOR procedure are in the results section. THYROID STIMULATING Routine 09/01/2016 11:42 Resu lts for this HORMONE AM REAMING PRESS OPERATOR procedure are i n the results section. CREATININE / GFR Routine 09/01/2016 11:42 Alopecia areata Resu lts for this AM REAMING PRESS OPERATOR procedure are i n the results section. COMPLETE BLOOD Routine 09/01/2016 11:42 Alopecia areata Result s for this COUNT-W/DIFF AM REAMING PRESS OPERATOR procedure are i n the results section. DIFFERENTIAL Routine 09/01/2016 11:42 Results for this AM REAMING PRESS OPERATOR procedure are i n the results section. DNA DOUBLE STRANDED Routine 09/01/2016 11:42 Alopecia areata R esults for this ANTIBODY AM REAMING PRESS OPERATOR procedure are i n the results section. C-REACTIVE PROTEIN Routine 09/01/2016 11:42 Alopecia areata Re sults for this AM REAMING PRESS OPERATOR procedure are i n the results section. DAMION SCREEN Routine 09/01/2016 11:42 Alopecia areata Results for this AM REAMING PRESS OPERATOR procedure are i n the results section. AST Routine 09/01/2016 11:42 Alopecia areata Results for this AM REAMING PRESS OPERATOR procedure are i n the results section. ESR Routine 09/01/2016 11:42 Alopecia areata Results for this AM REAMING PRESS OPERATOR procedure are i n the results section. documented in this encounter Results Thyroid Stimulating Hormone (09/01/2016 11:42 AM REAMING PRESS OPERATOR) athologist Signature Thyroid 1.30 0.20 - PN SOFT Stimulating 4.50 Hormone uIU/mL Specimen Anatomical Collection Method Collection Time Receive d Time (Source) Location / / Volume Laterality 09/01/2016 11:42 09/01/2016 3:44 AM REAMING PRESS OPERATOR PM REAMING PRESS OPERATOR Narrative PN SOFT - 09/01/2016 4:51 PM REAMING PRESS OPERATOR Performed at [address] [address] CLIA number [id number] Finn Laughlin MD LAB_1 Performing Organization Address City/State/[facility] Code Phon e Number PN SOFT [address] [place] [address] Differential (09/01/2016 11:42 AM REAMING PRESS OPERATOR) athologist Signature Absolute 2.9 1.8 - 8.0 PN SOFT Neutrophils k/cmm Absolute 1.3 1.1 - 4.0 PN SOFT Lymphocytes k/cmm Absolute 0.5 0.2 - 0.8 PN SOFT Monocytes k/cmm Absolute 0.2 0.0 - 0.5 PN SOFT Eosinophils k/cmm Absolute 0.0 0.0 - 0.2 PN SOFT Basophils k/cmm Immature 0.4 0.0 - 0.5 PN SOFT Granulocytes % Specimen Anatomical Collection Method Collection Time Receive d Time (Source) Location / / Volume Laterality 09/01/2016 11:42 09/01/2016 AM REAMING PRESS OPERATOR 11:41 AM REAMING PRESS OPERATOR Narrative PN SOFT - 09/01/2016 11:47 AM REAMING PRESS OPERATOR Performed at [facility], [address] [place] [address] CLIA number [id number] Finn Laughlin MD LAB_1 Performing Organization Address City/[facility] Code Phon e Number PN SOFT [address] [place] [address] DNA - Anti-dsDNA Antibody (09/01/2016 11:42 AM REAMING PRESS OPERATOR) athologist Signature Anti-DNA Ab see below Negative PN SOFT Comment: <1:10 Negative Specimen Anatomical Collection Method Collection Time Receive d Time (Source) Location / / Volume Laterality 09/01/2016 11:42 09/01/2016 3:45 AM REAMING PRESS OPERATOR PM REAMING PRESS OPERATOR Narrative PN SOFT - 09/02/2016 1:07 PM REAMING PRESS OPERATOR Performed at [facility], [address] [place] [address] CLIA number [id number] Finn Laughlin MD LAB_1 Performing Organization Address City/[facility] Code Phon e Number PN SOFT [address] [place] [address] Extractable Nuclear Antigen Antibodies (09/01/2016 11:42 AM REAMING PRESS OPERATOR) athologist Signature SUSHANT To STORE DETECTIVE 1 0 - 40 PN SOFT Antibody AU/mL Comment: INTERPRETIVE INFORMATION: Ribonucleic Pr otein (SUSHANT)Antibody, IgG ??29 AU/mL or Less ............. Negati ve ??30 - 40 AU/mL ................ Equivo nicholas ??41 AU/mL or Greater .......... Positi ve STORE DETECTIVE antibody is seen in 95-100 percent o f mixed connective tissue disease and is considered specifi c for this syndrome if other antibodies are negative; STORE DETECTIVE is also present in 20-30 percent of systemic lupus erythema tosus and 15-25 percent of progressive systemic sclerosi s. STORE DETECTIVE antigens also contain epitopes that are immunolog ically identical to free Jamison antigens, therefore, the Len h antibody response must be considered when interpreting STORE DETECTIVE results. Performed by [facility], [address] [place] [address],[place] [address] [phone] [email or web address] Toni Chaney MD - Lab. Director SUSHANT To Jamison (Sm) Antibody 0 0 - 40 AU/mL PN SOFT Comment: INTERPRETIVE INFORMATION: JAMISON (SUSHANT) Ab , IgG ??29 AU/mL or Less ............. Negati ve ??30 - 40 AU/mL ................ Equivo nicholas ??41 AU/mL or Greater .......... Positi ve Jamison antibody is very specific for syst emic lupus erythematosus (SLE) but only occurs in 3 0-35% of SLE cases. The presence of antibodies to Jamison is o ften associated with renal disease. SUSHANT To SSA (Ro) Antibody 7 0 - 40 AU/mL PN SOFT Comment: INTERPRETIVE INFORMATION: SSA (Ro) (SUSHANT) Ab, IgG ??29 AU/mL or Less ............. Negati ve ??30 - 40 AU/mL ................ Equivo nicholas ??41 AU/mL or Greater .......... Positi ve SSA 52 (Ro) and/or SSA 60 (Ro) antibodie s are associated with a diagnosis of Sjogren syndrome, sy stemic lupus erythematosus (SLE), and systemic sclero sis. SSA-52 antibody overlaps significantly with the major SSc-related antibodies. SSA-52 antibody occurs frequ ently in patients with inflammatory myopathies, often in t he presence of interstitial lung disease. SSA 60 (Ro) (SUSHANT) Antibody, IgG 0 0 - 40 AU/mL PN SOFT Comment: ??29 AU/mL or Less ............. Negati ve ??30 - 40 AU/mL ................ Equivo nicholas ??41 AU/mL or Greater .......... Positi ve SUSHANT To SSB (La) Antibody 0 0 - 40 AU/mL PN SOFT Comment: INTERPRETIVE INFORMATION: SSB (La) (SUSHANT) Ab, IgG ??29 AU/mL or Less ............. Negati ve ??30 - 40 AU/mL ................ Equivo nicholas ??41 AU/mL or Greater .......... Positi ve SSB (La) antibody is seen in 50-60% of S jogren syndrome cases and is specific if it is the only SUSHANT antibody present. 15-25% of patients with systemi c lupus erythematosus (SLE) and 5-10% of patient s with progressive systemic sclerosis (PSS) also have this antibody. Specimen Anatomical Collection Method Collection Time Receive d Time (Source) Location / / Volume Laterality 09/01/2016 11:42 09/01/2016 3:45 AM REAMING PRESS OPERATOR PM REAMING PRESS OPERATOR Narrative PN SOFT - 09/02/2016 11:23 PM REAMING PRESS OPERATOR Performed at [facility] [address] [place] [address] CLIA number [id number] Finn Laughlin MD LAB_1 Performing Organization Address City/[facility] Phon e Number PN SOFT [address] [place] [address] DAMION - Antinuclear Antibody (09/01/2016 11:42 AM REAMING PRESS OPERATOR) athologist Signature Anti-Nuclear Negative Negative PN SOFT Ab Specimen Anatomical Collection Method Collection Time Receive d Time (Source) Location / / Volume Laterality 09/01/2016 11:42 09/01/2016 3:45 AM REAMING PRESS OPERATOR PM REAMING PRESS OPERATOR Narrative PN SOFT - 09/02/2016 1:10 PM REAMING PRESS OPERATOR Performed at [address] [address] CLIA number [id number] Finn Laughlin MD LAB_1 Performing Organization Address City/[facility] Phon e Number PN SOFT [address] [place] [address] ESR - Sedimentation Rate (09/01/2016 11:42 AM REAMING PRESS OPERATOR) Analysis Performed At Patho logist Time Signature Sedimentation Rate 5 0 - 15 PN SOFT mm/hr Specimen Anatomical Collection Method Collection Time Receive d Time (Source) Location / / Volume Laterality 09/01/2016 11:42 09/01/2016 AM REAMING PRESS OPERATOR 11:41 AM REAMING PRESS OPERATOR Narrative PN SOFT - 09/01/2016 12:18 PM REAMING PRESS OPERATOR Performed at [facility], [address] [place] [address] CLIA number [id number] Finn Laughlin MD LAB_1 Performing Organization Address [facility] Phon e Number PN SOFT [address] [place] [address] (ABNORMAL) CRP - C Reactive Protein (09/01/2016 11:42 AM REAMING PRESS OPERATOR) athologist Signature CRP 0.6 (H) 0.0 - 0.5 PN SOFT mg/dL Specimen Anatomical Collection Method Collection Time Receive d Time (Source) Location / / Volume Laterality 09/01/2016 11:42 09/01/2016 AM REAMING PRESS OPERATOR 11:42 AM REAMING PRESS OPERATOR Narrative PN SOFT - 09/01/2016 2:37 PM REAMING PRESS OPERATOR Performed at [facility], [address] [place] [address] CLIA number [id number] Finn Laughlin MD LAB_1 Performing Organization Address City/[facility] Phon e Number PN SOFT [address] [place] [address] [phone] CBC - Complete Blood Count W/Diff (09/01/2016 11:42 AM REAMING PRESS OPERATOR) athologist Signature White Blood Cell 5.0 3.8 - 11.0 PN SOFT Count k/cmm Red Blood Cell 5.16 4.20 - PN SOFT Count 5.90 m/cmm Hemoglobin 15.6 13.4 - PN SOFT 17.5 g/dL Hematocrit 46.0 39.0 - PN SOFT 51.0 % Mean Corpuscular 89.1 80.0 - PN SOFT Volume 100.0 fL RDW 12.6 11.0 - PN SOFT 15.0 % Platelet Count 240 140 - 450 PN SOFT k/cmm Specimen Anatomical Collection Method Collection Time Receive d Time (Source) Location / / Volume Laterality 09/01/2016 11:42 09/01/2016 AM REAMING PRESS OPERATOR 11:41 AM REAMING PRESS OPERATOR Narrative PN SOFT - 09/01/2016 11:47 AM REAMING PRESS OPERATOR Performed at [facility], [address] [place] [address] CLIA number [id number] Finn Laughlin MD LAB_1 Performing Organization Address [facility] Code Phon e Number PN SOFT [address] [place] [address] AST - Aspartate Aminotransferase (09/01/2016 11:42 AM REAMING PRESS OPERATOR) Patholo gist Method Time Signature Aspartate 22 10 - 40 PN SOFT Aminotransferase U/L Specimen Anatomical Collection Method Collection Time Receive d Time (Source) Location / / Volume Laterality 09/01/2016 11:42 09/01/2016 AM REAMING PRESS OPERATOR 11:42 AM REAMING PRESS OPERATOR Narrative PN SOFT - 09/01/2016 2:37 PM REAMING PRESS OPERATOR Performed at [facility], [address] [place] [address] CLIA number [id number] Finn Laughlin MD LAB_1 Performing Organization Address [facility] Phon e Number PN SOFT [address] [place] [address] CREAT - Creatinine (09/01/2016 11:42 AM REAMING PRESS OPERATOR) P athologist Signature Creatinine Serum 1.00 0.73 - PN SOFT 1.18 mg/dL Est GFR >60 >60 PN SOFT Am mL/min/1.7 3m2 Est GFR Non-Afr >60 >60 PN SOFT Am mL/min/1.7 3m2 Comment: Normal>60, moderate decrease 30 - 59, se az decrease 15 - 29, renal failure <15 mL/min/1.73 m2 NOTE: ??Choose the eGFR result above pat ropriate for the race of the patient. Specimen Anatomical Collection Method Collection Time Receive d Time (Source) Location / / Volume Laterality 09/01/2016 11:42 09/01/2016 AM REAMING PRESS OPERATOR 11:42 AM REAMING PRESS OPERATOR Narrative PN SOFT - 09/01/2016 2:37 PM REAMING PRESS OPERATOR Performed at [facility], [facility] [address] [place] [address] CLIA number [id number] Finn Laughlin MD LAB_1 Performing Organization Address [facility] Phon e Number PN SOFT [address] [place] [address] documented in this encounter Visit Diagnoses Diagnosis Alopecia areata documented in this encounter Care Teams Tableau Report Developer Relationship Specialty Start Date End Date Raulito Saez, SPOT FACER, TOOL ROOM GEAR MACHINE OPERATOR PCP - General 12/24/10 09/25/18 documented as of this encounter
--- OUTSIDE RECORDS SUMMARY | 2022-06-18 08:43 | XMS_ITS | Encounter Summary ---
:1970 Author Organization [facility] Address [address], [place] [address] Care Team Providers Name Role Phone Raulito Saez APRN, CNP Primary Care Provider [phone] Reason for Visit Reason Comments Refill Encounter Details Date Type Department Care Team Description 01/15/2013 Telephone [facility] [address] Brenda Guaman MD Refill [address] [place] [address] [place], [place] [phone] (Wo rk) Social History Tobacco Use Types Packs/Day Years Used Date Smoking Tobacco: Never Assessed Sex Assigned at Date Recorded Not on file documented as of this encounter Nursing Notes Adele Broussard, NICOLE - 01/16/2013 11:11 AM CDT Rx for Advair 250/50 faxed to pharm per standing order as previously ordered by [facility]. Note complete. documented in this encounter Plan of Treatment Not on filedocumented as of this encounter Visit Diagnoses Not on filedocumented in this encounter Care Teams Senior Solutions Consultant Relationship Specialty Start Date End Date Raulito Saez APRN, CNP PCP - General 12/24/10 09/25/18 documented as of this encounter
--- OUTSIDE RECORDS SUMMARY | 2022-06-18 08:43 | XMS_ITS | Encounter Summary ---
:1970 Author Organization [employer] [facility] Address [address] [address] Care Team Providers Name Role Phone Raulito Saez TOÑO, FIRST BREAKER FEEDER Primary Care Provider [phone] Reason for Visit Reason Comments Follow-up Encounter Details Date Type Department Care Team Description 10/17/[address] [facility] [address] Unsp ecified asthma (Primary Dx); Allergy Allergic rhinitis, cause unspecified; [address] Lv yp of nasal cavity; [place] [address] [phone] (Wo rk) Social History Tobacco Use Types Packs/Day Years Used Date Smoking Tobacco: Never Assessed Sex Assigned at Date Recorded Not on file documented as of this encounter Last Filed Vital Signs Vital Sign Reading Time Taken Comments Blood Pressure 132/84 10/17/2012 3:03 PM STOCK PULLER Pulse - - Temperature - - Respiratory Rate - - Oxygen Saturation - - Inhaled Oxygen Concentration - - Weight 95.3 kg (210 lb) 10/17/2012 3:03 PM STOCK PULLER Height 182.9 cm (6') 10/17/2012 3:03 PM STOCK PULLER Body Mass Index 28.48 10/17/2012 3:03 PM STOCK PULLER documented in this encounter Progress Notes Brenda Copeland MD - 10/17/2012 6:36 PM CST Hayden is a 42-year-old white male with severe asthma complicated by reflux, nasal polyposis and allergic rhinitis. Overall, Hayden claims to be doing well. He suspects the polyp has returned especially on the left side. He has nasty scabs or buildup of caps and he has to work hard to get out. He has noted more pressure. He denies sneezing. Rhinorrhea is limited to the April through July time frame. Hayden did try shots but found to be difficult with work. He currently is not taking any medicationfor his nose. He is aware of both dust mite and seasonal pollen allergen avoidance measures. Hayden describes asthma as good. He uses Advair 250/50 mcg one puff twice daily. If he misses one dose he can usually get by but more doses will definitely result in symptoms. He can go months without using his rescue inhaler. He admits to not exercising regularly but it is not his breathing is preventing him from doing so. No nighttime awakening because of breathing issues. No colds have gone into his chest. Since last visit, Hayden was hospitalized for diverticulitis and 2 weeks later had an acute perforation requiring emergency surgery. Reflux has not been a problem since undergoing Robert fundoplication.Hayden has 2 children in the [place] school district. 1 labradoodle. Nonsmoker. He works from [employer] of the time but commutes between [place] and [place]. OBJECTIVE: Vital Signs: BP: 134/84 HT: 72 inches WT: 210 pounds. Healthy male with no nasal congestion quality in voice. SKIN: Without rash. Eyes: Conjunctivae clear, PERRLA. Ears: Canals patent, TMs normal. Nose: Normal colored mucosa with no edema. Dry membranes. Polyp obstructing posterior left nasal cavity. Oropharynx with posterior erythema and white exudate consistent with thrush. Teeth and gums in good repair. NECK: Supple without adenopathy. Thyroid not enlarged. LUNGS: Clear with good air movement throughout. No wheezes, rales, or rhonchi. CV: Regular rate and rhythm, normal S1, S2. No murmurs, rubs,or gallops. SPIROMETRY: Normal and unchanged from previous. FEV1 3.98 liters, 90 % of predicted. FVC 4.81 liters, 86 % of predicted. FEV1/FVC ratio 83 %. FEF 25-75% 3.77 liters/sec, 93 % of predicted. ASSESSMENT: 1. Asthma. Stable spirometry and minimal symptoms are reassuring. Patient is aware if albuterol use changes significantly, especially if there is not a good explanation, followup sooner than currently scheduled is suggested. Influenza vaccine already obtained. 2. Nasal polyposis. We did discuss symptoms as the primary criteria for polypectomy surgery. Would first reconstruct nasal steroid spray. If that alone fails to provide benefit, a short course of systemic steroids may be warranted. 3. Allergic rhinitis. Reviewed treatment options. Goal of therapy is to improve quality of life. This point is and does not perceive that to be a problem so adding additional medications are not warranted. 4. oral candidiasis. Hayden did look at his throat during visit. I encouraged him to do so again at the completion of treatment to assure resolution. PLAN: 1. ongoing allergen avoidance encouraged 2. Advair 250/50 micrograms one puff b.i.d. with albuterol p.r.n. 3. Diflucan 200 mg day one followed by 100 mg p.o. q. day for 10 additional days 4. Fluticasone nasal spray 2 sprays per nares daily 5. Return to clinic one year or as needed documented in this encounter Miscellaneous Notes Letter - 10/17/2012 12:00 AM CST My Asthma Management Plan Name: Hayden Laniergaboronnie Date: 10/17/2012 My Medical Provider: YOHANA Seth My Asthma Specialist: Brenda Copeland MD My Clinic: [facility] [address] [facility] Phone #: [phone] Know your asthma triggers: Colds and Viruses and Gastric Reflux GREEN ZONE Good Control You have ALL of these: ?? Breathing is good ?? No cough or wheeze ?? Can work/exercise/play easily ?? No night coughing Take your asthma control medicine every day: Advair 250/50 mcg 1 puff 2x per day IF exercise triggers your asthma - take Albuterol Inhaler, 2 puffs [ProAir, Proventil, Ventolin] ?? 15 minutes before exercise or sports, and ?? During exercise if you have asthma symptoms YELLOW ZONE Getting Worse You have ANY of these: ?? It's hard to breath ?? Coughing ?? Wheezing ?? Tightness in chest ?? Cannot work/play easily ?? Wake up at night coughing 1. Keep taking your Green Zone medications. 2. Start taking your Albuterol Inhaler, 2 puffs [ProAir, Proventil, Ventolin] every 20 minutes as needed for up to 1 hour. Then every 4 to 6 hours as needed. 3. If you do not return to the Green Zone in 12-24 hours or you get worse:Contact your clinic. RED ZONE Medical Alert - Get Help You have ANY of these: ?? It's very hard to breathe ?? Ribs are showing while breathing ?? Medicine is not helping ?? Trouble walking or talking ?? Lips or fingernails are orozco or bluish 1. Take your rescue medicine NOW: Albuterol Inhaler, 2-4 puffs [ProAir, Proventil, Ventolin] EVERY 20 MINUTES. 2. If your provider has prescribed an oral steroid medicine, start taking it NOW. 3. Call your clinic NOW. 4. If you are still in the Red Zone after 20 minutes and you have not reached your clinic: ?? Take your rescue medicine again and ?? Call 911 or go to the emergency room right away Please follow up with your Health Care Provider within 2 weeks of an Emergency Room or Urgent Care visit for follow-up treatment. Electronically signed by: Brenda Copeland MD, 10/17/2012 Created by: Brneda Copeland Asthma Management Plan and Trigger Control Sheet given to patient/caregiver Reminders: Asthma visit 1-2 times yearly or as instructed by your clinician, Influenza shot yearly Asthma Triggers How To Control Things That Make Your Asthma Worse Triggers are things that make your asthma worse. Look at the list below to help you find your triggers and what you can do about them. You can help prevent asthma flare-ups by staying away from your triggers. Trigger What you can do Cigarette Smoke Tobacco smoke can make asthma worse. Do not allow smoking in your home, car or around you. Be sure no one smokes at a child???s day care or school. If you smoke, ask your health care provider for ways to help you quick. Ask family members to quit too. Ask your health care provider for a referral to Quit plan to help you quit smoking, or call 7-958-950-PLAN. Colds, Flu, Bronchitis These are common triggers of asthma. Wash your hands often. Don???t touch your eyes, nose or mouth. Get a flu shot every year. Dust Mites These are tiny bugs that live in cloth or carpet. They are too small to see. Wash sheets and blankets in hot water every week. Encase pillows and mattress in dust mite proof covers. Avoid having carpet if you can. If you have carpet, vacuum weekly. Use a dust mask and HEPA vacuum. Pollen and Outdoor Mold Some people are allergic to trees, grass, or weed pollen, or molds. Try to keep your windows closed. Limit time out doors when pollen count is high. Ask you health care provider about taking medicine during allergy season. Animal Dander Some people are allergic to skin flakes, urine or saliva from pets with fur or feathers. Keep pets with fur or feathers out of your home. If you can???t keep the pet outdoors, then keep the pet out of your bedroom. Keep the bedroom door closed. Keep pets off cloth furniture and away from stuffed toys. Mice, Rats, and Cockroaches Some people are allergic to the waste from these pets. Cover food and garbage. Clean up spills and food crumbs. Store grease in the refrigerator. Keep food out of the bedroom. Indoor Mold This can be a trigger if your home has high moisture Fix leaking faucets, pipes, or other sources ofwater. Clean moldy surfaces. Dehumidify basement if it is damp and smelly. Smoke, Strong Odors, and Sprays These can reduce air quality. Stay away from strong odors and sprays, such as perfume, powder, hair spray, paints, smoke incense, paints, cleaning products, candles and new carpet. Exercise or Sports Some people with asthma have this trigger. Be active! Ask you doctor about taking medicine before sports or exercise to prevent symptoms. Warm up for 5-10 minutes before and after sports or exercise. Other Triggers of Asthma Cold air: Cover your nose and mouth with a scarf. Sometimes laughing or crying can be a trigger. Some medicines and food can trigger asthma. K PULLER documented in this encounter Plan of Treatment Not on filedocumented as of this encounter Visit Diagnoses Diagnosis Unspecified asthma(493.90) ([facility]) - Prima ry Unspecified asthma Allergic rhinitis, cause unspecified Polyp of nasal cavity Oral candidiasis Candidiasis of mouth documented in this encounter Care Teams Corporate Controller Relationship Specialty Start Date End Date Raulito Saez, COLUMNIST, FIRST BREAKER FEEDER PCP - General 12/24/10 09/25/18 documented as of this encounter
--- OUTSIDE RECORDS SUMMARY | 2022-06-18 08:43 | XMS_ITS | Encounter Summary ---
:1970 Author Organization [employer] Address [address] [address] Care Team Providers Name Role Phone Jossue Chapin MD Primary Care Provider Encounter Details Date Type Department Care Team Description 12/15/2021 Orders Only HIM DEPARTMENT Provider, Ladonna [place] [address] Social History Tobacco Use Types Packs/Day Years [...] Date/Time Associated Diagnosis Comme nts PULMONARY TEST WA 12/15/2021 Results fo r this procedure are in the resu lts section. documented in this encounter Results PULMONARY TEST WA (12/15/2021) Narrative This result has an attachment that is no t available. Interface Provider DUMMY/OTHER/AR documented in this encounter Visit Diagnoses Not on filedocumented in this encounter Care Teams Electrical Engineering Technician Relationship Specialty Start Date End Date Jossue Chapin MD PCP - General 09/26/181999 [place] [address] documented as of this encounter
--- OUTSIDE RECORDS SUMMARY | 2022-06-18 08:43 | XMS_ITS | Encounter Summary ---
:1970 Author Organization [employer] Address [address], [place] [address] Care Team Providers Name Role Phone Jossue Chapin MD Primary Care Provider Encounter Details Date Type Department Care Team Description 11/19/2019 Orders Only Initial Department Provider, Oc, [facility] DEBBIE REEDER MD [place], [place] [address] Interface provider [phone] [place] [address] Social History Tobacco Use Types Packs/Day Years [...] Name Priority Date/Time Associated Diagnosis Comme nts PFT 11/19/2019 Results for thi s procedure are in the resu lts section. documented in this encounter Results PFT (11/19/2019) Narrative This result has an attachment that is no t available. Interface Provider DUMMY/OTHER/AR documented in this encounter Visit Diagnoses Not on filedocumented in this encounter Care Teams A R Specialist Relationship Specialty Start Date End Date Jossue Chapin MD PCP - General 09/26/181999 [place] [address] documented as of this encounter
--- OUTSIDE RECORDS SUMMARY | 2022-06-18 08:43 | XMS_ITS | Encounter Summary ---
:1970 Author Organization [employer] Address [address], [place] [address] Care Team Providers Name Role Phone Jossue Chapin MD Primary Care Provider Encounter Details Date Type Department Care Team Description 11/26/2020 Orders Only Initial Department Provider, Oc, [facility] DEBBIE REEDER MD [place], [place] [address] Interface provider [phone] [place] [address] Social History Tobacco Use Types Packs/Day Years [...] Priority Date/Time Associated Diagnosis Comme nts PFT 11/26/2020 Results for thi s procedure are in the resu lts section. documented in this encounter Results PFT (11/26/2020) Narrative This result has an attachment that is no t available. Interface Provider DUMMY/OTHER/AR documented in this encounter Visit Diagnoses Not on filedocumented in this encounter Care Teams Wireless Consultant Relationship Specialty Start Date End Date Jossue Chapin MD PCP - General 09/26/181999 [place] [address] documented as of this encounter
--- OUTSIDE RECORDS SUMMARY | 2022-06-18 08:43 | XMS_ITS | Encounter Summary ---
:1970 Author Organization [facility] Address [address] [address] Care Team Providers Name Role Phone Raulito Saez Yemi LUNDBERG CNP Primary Care Provider [phone] Reason for Visit Reason Comments Refill Encounter Details Date Type Department Care Team Description 06/27/2017 Refill [place] [facility] Brenda Copeland MD Refill [address] [facility] [place], [place] [id number] [place] [id number] (Wo rk) Social History Tobacco Use Types Packs/Day Years Used Date Smoking Tobacco: Former Cigarettes 1 Quit : 1990 Alcohol Use Standard Drinks/Week Comments Yes 3 (1 standard drink = 0.6 oz pure alcoho l) Sex Assigned at Date Recorded Not on file documented as of this encounter Nursing Notes Deja Bosch RN - 06/27/2017 2:59 PM CDT Per [facility] order Advair script sent to pharmacy. Message complete. Deja Bosch RN - 06/27/2017 2:57 PM CDT Pt has appt on 06/28/17 Brenda Copeland MD - 06/27/2017 1:13 PM CDT OK Advair refill ONE TIME ONLY IF f/u appt is made. Deja Bsoch RN - 06/27/2017 12:41 PM CDT PJ pt seen 04/20/16. No appt scheduled. RF request for 250/50. Per 04/28/17 phone note med was filled and appt reminder letter was mailed to pts home. OK to fill? Appt first? Please advise. documented in this encounter Plan of Treatment Not on filedocumented as of this encounter Visit Diagnoses Not on filedocumented in this encounter Care Teams University Relations Director Relationship Specialty Start Date End Date Raulito Saez, CLINICAL RESEARCH NURSE COORDINATOR, SALES AGENT [employer] PCP - General 12/24/10 09/25/18 documented as of this encounter
--- OUTSIDE RECORDS SUMMARY | 2022-06-18 08:43 | XMS_ITS | Encounter Summary ---
:1970 Author Organization [employer] Address [address] [address] Care Team Providers Name Role Phone Jossue Chapin MD Primary Care Provider Encounter Details Date Type Department Care Team Description 11/26/[address] [facility] [address]; Laboratory Alopecia areata; [address] Moderate persistent asthma, unspecified whether complicated [place], [place] [address] Social History Tobacco Use Types Packs/Day Years [...] Name Priority Date/Time Associated Diagnosis Comme nts CBC AND DIFFERENTIAL Routine 11/26/2020 4:21 PM Moderate persi stent Results for this PANEL MANUAL ARTS THERAPIST asthma, unspecified procedur e are in whether complica dennys the results Nasal polyp section. COMPLETE BLOOD Routine 11/26/2020 4:21 PM Moderate persistent Results for this COUNT-W/DIFF MANUAL ARTS THERAPIST asthma, unspecified procedur e are in whether complica dennys the results Nasal polyp section. TSH, SENSITIVE (WITH Routine 11/26/2020 4:21 PM Nasal po lyp Results for this REFLEX) MANUAL ARTS THERAPIST Alopecia areata procedure ar e in the results section. documented in this encounter Results Complete Blood Count-W/Diff (11/26/2020 4:21 PM MANUAL ARTS THERAPIST) P athologist Signature WBC 7.3 3.5 - 10.5 11/26/2020 [facility] x10(9)/L 4:32 PM MANUAL ARTS THERAPIST [address] LAB[address] RBC 5.26 4.32 - 11/26/2020 [facility] 5.72 4:32 PM MANUAL ARTS THERAPIST [address] LAB[address] x10(12)/L Hemoglobin 16.1 13.5 - 11/26/2020 [facility] 17.5 g/dL 4:32 PM MANUAL ARTS THERAPIST [address] HCT 47.9 38.8 - 11/26/2020 [facility] 50.0 % 4:32 PM MANUAL ARTS THERAPIST [address] MCV 91.1 80.0 - 11/26/2020 [facility] 100.0 fL 4:32 PM MANUAL ARTS THERAPIST [address] MCH 30.6 27.6 - 11/26/2020 [facility] 33.3 pg 4:32 PM MANUAL ARTS THERAPIST [address] MCHC 33.6 31.5 - 11/26/2020 [facility] 35.2 g/dL 4:32 PM MANUAL ARTS THERAPIST [address] RDW 12.9 11.9 - 11/26/2020 [facility] 15.5 % 4:32 PM MANUAL ARTS THERAPIST [address] LAB[address] Platelets 295 150 - 450 11/26/2020 [facility] x10(9)/L 4:32 PM MANUAL ARTS THERAPIST [address] Automated NRBC 0 <=0 /100 11/26/2020 [facility] WBC 4:32 PM MANUAL ARTS THERAPIST [address] Neutrophil 4.5 1.7 - 7.0 11/26/2020 [facility] Absolute 10(9)/L 4:32 PM MANUAL ARTS THERAPIST [address] Lymphocyte 2.0 1.0 - 4.8 11/26/2020 [facility] Absolute 10(9)/L 4:32 PM MANUAL ARTS THERAPIST [address] Monocytes 0.6 0.2 - 0.9 11/26/2020 [facility] Absolute 10(9)/L 4:32 PM MANUAL ARTS THERAPIST [address] Eosinophil 0.2 0.0 - 0.5 11/26/2020 [facility] Absolute 10(9)/L 4:32 PM MANUAL ARTS THERAPIST [address] Basophil 0.1 0.0 - 0.3 11/26/2020 [facility] Absolute 10(9)/L 4:32 PM MANUAL ARTS THERAPIST [address] LAB[address] Immature Gran % 0.1 0.0 - 0.5 11/26/2020 [facility] % 4:32 PM MANUAL ARTS THERAPIST [address] LAB[address] Specimen Anatomical Collection Method / Collection Time Recei randy Time (Source) Location / Volume Laterality Blood Venipuncture / 11/26/2020 4:21 11/26/2020 4:22 Unknown PM MANUAL ARTS THERAPIST PM MANUAL ARTS THERAPIST Brenda Copeland MD LAB_1 Performing Organization Address City/[facility]/ZIP [facility] Phon e Number [facility] [address] [place], [place] LABORATORY [facility] [phone] TSH with Free T4 (if TSH Abnormal) (11/26/2020 4:21 PM MANUAL ARTS THERAPIST) P athologist Signature TSH, Reflex 1.34 0.30 - 4.50 11/26/2020 [facility]/mL 8:18 PM MANUAL ARTS THERAPIST LABORATORY Specimen Anatomical Collection Method / Collection Time Recei randy Time (Source) Location / Volume Laterality Blood Venipuncture / 11/26/2020 4:21 11/26/2020 4:22 Unknown PM MANUAL ARTS THERAPIST PM MANUAL ARTS THERAPIST Narrative [facility] - 11/26/2020 8:18 P M MANUAL ARTS THERAPIST Lab will automatically reflex to Free T4 when TSH results are outside of reference range for patient's age group. Brenda Copeland MD LAB_1 Performing Organization Address City/[facility] Phon e Number [facility] [address] [place] [address] documented in this encounter Visit Diagnoses Diagnosis Nasal polyp Unspecified nasal polyp Alopecia areata Moderate persistent asthma, unspecified whether complicated ([facility]) documented in this encounter Care Teams Wheel Filler Relationship Specialty Start Date End Date Jossue Chapin MD PCP - General 09/26/181999 [place] [address] documented as of this encounter
--- OUTSIDE RECORDS SUMMARY | 2022-06-18 08:43 | XMS_ITS | Encounter Summary ---
:1970 [facility] Address [address], [place] [address] Care Team Providers Name Role Phone Jossue Chapin MD Primary Care Provider Reason for Visit Reason Comments Follow-up Encounter Details Date Type Department Care Team Description 09/26/2018 Office Visit [facility] Brenda Copeland, Moderate persistent asthma, unspecified whether complicated (Primary Dx); [address] Berkowitz MD Nasal polyp; [place] [address] [address] [facility] Allergic rhinitis, unspecifi ed seasonality, unspecified trigger [phone] [place] [address] (Wo rk) Social History Tobacco [...] Sign Reading Time Taken Comments Blood Pressure 110/70 09/26/2018 11:30 AM MEDICARE COMPLIANCE AUDITOR Pulse 74 09/26/2018 11:30 AM MEDICARE COMPLIANCE AUDITOR Temperature - - Respiratory Rate - - Oxygen Saturation 100% 09/26/2018 11:30 AM MEDICARE COMPLIANCE AUDITOR Inhaled Oxygen Concentration - - Weight 99.8 kg (220 lb) 09/26/2018 11:30 AM MEDICARE COMPLIANCE AUDITOR Height 182.9 cm (6') 09/26/2018 11:30 AM MEDICARE COMPLIANCE AUDITOR Body Mass Index 29.84 09/26/2018 11:30 AM MEDICARE COMPLIANCE AUDITOR documented in this encounter Patient Instructions Patient InstructionsBrenda Copeland MD - 09/26/2018 11:00 AM CST Whatever you are doing, keep it up. Your breathing test is much better than what it was at last visit. If the cost of medication changes, call me to discuss alternatives. CARE COMPLIANCE AUDITOR documented in this encounter Progress Notes Brenda Copeland MD - 09/26/2018 12:00 PM CST NAME: HAYDEN AMARO MR#: [id number] CSN: [id number] AUTHENTICATING CLINICIAN: Brenda Copeland MD CONFIRM #: [id number] LOC: 514 CLINIC PROGRESS NOTE DATE OF VISIT: 09/26/2018 : 1970 SUBJECTIVE: Hayden is a 48-year-old white male with asthma, chronic sinusitis, and history of nasal polyposis along with allergic rhinitis (positive to most antigens tested). He is here for routine followup. Hayden uses Advair 250/50 mcg 1 puff in the morning. The only time he recalls using his albuterol was when he had to spend too much time in a vets office. He denies any ongoing cough wheezing shortness of breath or exercise intolerance. He is working out 5 days per week. Colds have not gone into his chest. Nonighttime awakening because of breathing issues. Hayden notes ongoing nasal congestion, and some postnasal drainage. He lost his sense of smell, yearsago. Currently, he is not taking any medication. When he does take something, he 1st uses the budesonide nasal rinses which have been shown to be most effective and least irritating. He has been on multiple nasal steroid sprays including both aqueous and dry formulations. He is well versed with dust mite avoidance measures and does what he can. He is aware of sleeping with the windows closed and showering after prolonged outdoor exposure. Hayden underwent 2 Robert fundoplications for reflux that did aggravate asthma in the past. It has been years and he continues to be asymptomatic. Hayden is on different medication for hypertension. He has been in otherwise stable health. Two daughters the oldest in a psychology graduate program at [employer]. One 15-year-old. Three dogs all poodle mixes. 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 Lifetime nonsmoker. PHYSICAL EXAM: VITAL SIGNS: BP 110/70, pulse 74 regular, height 72 inches, weight 220 pounds, O2 sat 100% on room air. GENERAL APPEARANCE: Healthy male does not appear acutely or chronically ill. No obvious nasal congestion noted. SKIN: Warm, dry without rash. EYES: Conjunctivae clear. PERRLA. EARS: Canals patent. TMs normal. NOSE: Widely patent. Healthy-appearing mucosa, slightly dry. Normal coloration. No purulence or polyps. MOUTH: Oropharynx clear. Teeth and gums good repair. NECK: Supple. No adenopathy. Thyroid not palpable. LUNGS: Clear with good air movement. No wheezes, rales or rhonchi. CERVICAL: Regular rate and rhythm. Normal S1, S2. No murmurs, rubs, or gallops. Spirometry is normal and slightly improved compared to past visits. FEV1 3.88, 91%; FVC 4.91 L, 90%;ratio 79%; small airflow 3.44 L/S, 91% of predicted. IMPRESSION: 1.Asthma. All goals of asthma treatment are currently being met. No change in plan at this point. Importance of ongoing exercise emphasized. If the cost of medication does change, I encouraged him to call me to discuss alternatives. 2.Rhinitis of multifactorial etiology. Avoidance reviewed for common aeroallergens. Agree with usingbudesonide regularly when needed. Would suggest sinus imaging study if results change treatment. PLAN: 1.Importance of ongoing exercise emphasized. 2.Allergic avoidance reviewed. 3.Advair 250/50 mcg 1 puff in a.m., increasing to b.i.d. as needed. 4.Albuterol 2 puffs q.4 hours p.r.n. 5.Budesonide 0.5 mg/2 mL with nasal saline washes daily when needed. 6.Return to clinic with me 1 year or p.r.n. [facility] C: CONFIRM #: [id number] CARE COMPLIANCE AUDITOR Brenda Copeland MD - 09/26/2018 11:00 AM CST This office note has been dictated. CARE COMPLIANCE AUDITOR documented in this encounter Plan of Treatment Not on filedocumented as of this encounter Visit Diagnoses Diagnosis Moderate persistent asthma, unspecified whether complicated ([facility]) - Primary Nasal polyp Unspecified nasal polyp Allergic rhinitis, unspecified seasonali ty, unspecified trigger documented in this encounter Care Teams Armed Security Officer Relationship Specialty Start Date End Date Jossue Chapin MD PCP - General 09/26/181999 [place] [address] documented as of this encounter
--- OUTSIDE RECORDS SUMMARY | 2022-06-18 08:43 | XMS_ITS | Encounter Summary ---
:[address] [facility] Address [address], [place] [address] Care Team Providers Name Role Phone Raulito Saez Yemi LUNDBERG CNP Primary Care Provider [phone] Reason for Visit Reason Comments Follow-up Encounter Details Date Type Department Care Team Description 01/08/2014 Office Visit [facility] Brenda Copeland, Unspecified asthma(493.90) ( Primary Dx); [address] [facility] Allergic [place]initis, [place] [address] [facility] [phone] [place] [address] (Wo rk) Social History Tobacco Use Types Packs/Day Years Used Date Smoking Tobacco: Never Assessed Sex Assigned at Date Recorded Not on file documented as of this encounter Last Filed Vital Signs Vital Sign Reading Time Taken Comments Blood Pressure 140/82 01/08/2014 8:54 AM CDT Pulse - - Temperature - - Respiratory Rate - - Oxygen Saturation - - Inhaled Oxygen Concentration - - Weight 99.8 kg (220 lb) 01/08/2014 8:54 AM CDT Height 182.9 cm (6') 01/08/2014 8:54 AM CDT Body Mass Index 29.84 01/08/2014 8:54 AM CDT documented in this encounter Patient Instructions Patient InstructionsBrenda Copeland MD - 01/08/2014 9:35 AM CDT Nasal steroid sprays work similarly. They will differ in the smell, feel, cost and insurance coverage. Fluticasone, generic for Flonase is the least costly prescription spray. It has a floral scent. Nasacort AQ (triamcinolone) is a non-scented finer spray that is available over the counter. Nasonex is a non-scented, fine spray that is prescription. Nasal sprays can be difficult to use. They do NOTHING immediately but with regular use, they shrink the inflammation and hopefully minimize symptoms. They need to be taken on a daily basis to get full benefit but it can be used seasonally. Try to get in the habit of using it as a part of your morning or evening routine. Look down when spraying. Aim straight back. Start with 2 sprays each nostril daily. IF you are wonderful, taper to 1 spray daily. documented in this encounter Progress Notes Brenda Copeland MD - 01/08/2014 12:59 PM CDT Complete note dictated. Brenda Copeland MD - 01/08/2014 12:59 PM CDT Progress Notes signed by Brenda Copeland MD at 01/08/141906 Author: Brenda Copeland MD Service: (none) Author Type: Physician Filed: 01/08/141906 Note Time: 01/08/141406 Status: Signed Wallpaperer Helper: Brenda Copeland MD (Physician) NAME: HAYDEN AMARO MR#: [id number] CSN: [id number] AUTHENTICATING CLINICIAN: Brenda Copeland MD CONFIRM #: [id number] LOC: 514 CLINIC PROGRESS NOTE DATE OF VISIT: 01/08/2014 : 1970 Hayden is a 43-year-old white male with asthma complicated by gastroesophageal reflux, nasal polyposis and allergic rhinitis. Hayden uses Advair 250/50 mcg, 1 puff in the morning. If he runs hard, he will get short of breath, but suspects that is more deconditioning than asthma. The only time he used albuterol is with flu-like illness when he had more chest tightness during exercise. It did respond. Hehas no nighttime awakening or interference with activity because of breathing issues. Hayden underwent a Robert fundoplication several years ago and has had no ongoing problems with reflux since that time. Hayden suspects his polyps are returning. He does note a chronic degree of nasal congestion. He blowshis nose most mornings and drainage can range from clear to thick and at times bloody. Especially inthe winter, drainage can become very crusty, and block his nose. Last year, he was given a short course of prednisone, which he claims provided great benefit, however, symptoms slowly deteriorated. There is no obvious seasonal pattern or clear triggers. No snoring, but he has had his uvula removed because of sleep apnea. No ongoing headache. Sense of smell has been absent for some time. Hayden has been in otherwise good health. He has 2 children within the [employer]. Two Labradoodle dogs. Nonsmoker. He recently has changed jobs and now is traveling more. PHYSICAL EXAM: BP 140/82, height 72 inches, weight 220 pounds. Healthy, pleasant male without acute distress. SKIN: Warm, dry. No rash. Eyes: Conjunctivae clear. PERRLA. Ears: Canals patent. TMs normal. Nose: Congested scant purulent drainage. Questionable polyp on left. Oropharynx clear. Teeth and gums good repair. NECK: Supple. No adenopathy. Thyroid not palpable. LUNGS: Clear with good air movement. No wheezes, rales, or rhonchi. CV: Regular rate and rhythm. Normal S1, S2. No murmurs, rubs, or gallops. Spirometry normal and unchanged from previous. FEV-1 3.73 L (85%). FVC 4.64 L (83%). Ratio 80%. Small airflow 3.26 L/s, 81% of predicted. IMPRESSION: 1. Asthma. Stable spirometry on relatively low dose of controller medication is reassuring. Would continue to have bronchodilator available to use as needed. If use changes, and especially if there is not a reason why, he should first increase Advair to twice daily, and then to be seen for further evaluation. Reflux does not appear to be a current contributing factor. 2. Rhinitis. Both chronic sinusitis and allergies are likely playing a role. Hayden admits to not using nasal sprays on a regular basis. Historically, they have offered little benefit. Dry nasal sprays are now available which can potentially get back further and be more efficacious. Risks and benefits of recurrent systemic steroid bursts discussed. It is balancing risks and benefits. PLAN: 1. Seasonal allergen avoidance discussed. 2. Advair 250/50 mcg 1 puff in a.m., increasing to b.i.d. if needed. 3. Albuterol p.r.n. 4. Prednisone 20 mg p.o. b.i.d. for 7 days. 5. Nasonex available. He will call for an additional prescription if needed. Nasacort AQ, is now available over the counter and may be a less costly alternative. 6. Yearly flu shot encouraged. 7. Return to clinic with me 1 year or p.r.n. [facility]:MED[facility] C: CONFIRM #: [id number] documented in this encounter Miscellaneous Notes Letter - Brenda Copeland MD - 01/08/2014 12:00 AM CDT My Asthma Management Plan Name: Hayden Amaro Date: 01/08/2014 My Medical Provider: Raulito Saez My Asthma Specialist: Brenda Copeland MD My Clinic: [facility] Phone #: [phone] Know your asthma triggers: Colds and Viruses and Exercise or Sports GREEN ZONE Good Control You have ALL of these: ?? Breathing is good ?? No cough or wheeze ?? Can work/exercise/play easily ?? No night coughing Take your asthma control medicine every day: Advair Diskus 250/50mcg one puff once daily IF exercise triggers your asthma - take [...] Zone in 12-24 hours or you get worse:Increase the Advair to 1 puff 2x per day and Contact your clinic. [facility] Medical Alert - [...] treatment. Electronically signed by: Brenda Copeland MD, 01/08/2014 Created by: Brenda Copeland Asthma Management Plan and Trigger Control [...] to help you quit smoking, or call [phone]. Colds, Flu, Bronchitis These are common triggers [...] Some medicines and food can trigger asthma. RANCE ADJUSTER documented in this encounter Plan of Treatment Not on filedocumented as of this encounter Visit Diagnoses Diagnosis Unspecified asthma(493.90) ([facility]) - Prima ry Unspecified asthma Allergic rhinitis, cause unspecified documented in this encounter Care Teams Fur Drummer Relationship Specialty Start Date End Date Raulito Saez, [facility], BIOLOGICAL LAB TECHNICIAN PCP - General 12/24/10 09/25/18 documented as of this encounter
--- OUTSIDE RECORDS SUMMARY | 2022-06-18 08:43 | XMS_ITS | Encounter Summary ---
:1970 Author Organization [email or web address] Address [address] [address] Care Team Providers Name Role Phone Raulito Saez CHITO LUNDBERG Primary Care Provider [phone] Reason for Visit Reason Comments CONSULT Encounter Details Date Type Department Care Team Description 09/01/2016 Initial Consult Finn Carter M D Alopecia areata (Primary Dx); Rheumatology [address] [facility] Psoriasis; [address] [facility] BL Right elbow pain; [place], [place] [id number] [place] [address] Chronic pain of both knees [phone] [id number] Social History Tobacco Use Types Packs/Day Years Used Date Smoking Tobacco: Former Cigarettes 1 Quit : 1990 Alcohol Use Standard Drinks/Week Comments Yes 3 (1 standard drink = 0.6 oz pure alcoho l) Sex Assigned at Date Recorded Not on file documented as of this encounter Last Filed Vital Signs Vital Sign Reading Time Taken Comments Blood Pressure 150/94 09/01/2016 11:49 AM MAINTENANCE AIDE Pulse 57 09/01/2016 11:49 AM MAINTENANCE AIDE Temperature - - Respiratory Rate - - Oxygen Saturation - - Inhaled Oxygen Concentration - - Weight - - Height - - Body Mass Index - - documented in this encounter Patient Instructions Patient InstructionsFinn Laughlin MD - 09/01/2016 11:05 AM CST I would agree that circular patchy hair loss coming and going would fit with alopecia areata. Sometimes this is of unknown cause. Some associated diseases are lupus, thyroid, psoriasis. It does look like you have psoriasis elbows. The psoriasis would be treated topically. We can do some blood work to rule out lupus, thyroid issues, and internal organ issues. 1 out of 10 patients with psoriasis gets inflamed joints. However, your joints don't look in flamed.I don't think you have psoriatic arthritis at this point. The right knee has small amount of fluid likely from mensicus tear. TENANCE AIDE documented in this encounter Progress Notes Finn Laughlin MD - 09/01/2016 11:27 AM CST RHEUMATOLOGY NEW PATIENT NOTE This note was generated using voice activated manager of it software and may contain typographical errors. CC: The patient is referred by Dr. Jossue Chapin for alopecia areata, psoriasis and joint pain HPI: The patient is a 45-year-old male. He has been seen in the allergy department for asthma and allergic rhinitis. Some outside records were received and reviewed. The patient had been seen April 2016. He has psoriasis, some alopecia, had some pain in left shoulder and right knee. His primary care provider is Dr. Jossue Chapin had [facility], [facility]. TSH was normal in October 2015. We reviewed his history in detail. He has had a history of alopecia areata actually for quite a number of years. He has seen skincare doctors and had intralesional triamcinolone injections which do actually help. He typically gets several spots of alopecia in the posterior aspect of his head, typically about a quarter in size. At one point, he was given a burst of prednisone 60 mg daily tapered off over 10 days which does also help. He probably does have psoriasis although this has not been formally diagnosed by asphalt patcher. He gets some scaly patches over the elbows and over the knees in the region of the anterior tibialtuberosity. He wants to rule out some sort of systemic autoimmune disease. He gets some arthralgia. He has some chronic arthralgia in the right elbow, lateral aspect, seems to bother with gripping and grasping, novisible swelling. In addition, he has had some soreness in his knees, seems to be activity related, more on the lateral aspect of the right knee. He was found apparently to have a meniscal tear in the right knee for which he has not pursued surgery. He denies dry eyes, dry mouth, mouth sores, photosensitivity, Raynaud's, visibly swollen joints. In general, he feels systemically well, works out regularly. PMH: Asthma, reflux, rhinitis, diverticulitis, overweight, hypertension, laparoscopic sigmoid colectomy for perforated diverticulitis in 2012, sinus infections, sinus surgery. 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 PAIN & RAPID3: In flowsheet if completed by patient. Level of pain is 2/10. OBJECTIVE: VS: Per flowsheet General: NAD. Eyes: Externally clear. Mouth: Moist mucous membranes. No ulcers. Lymph: No cervical or groin adenopathy. Chest: CTA. Heart: RRR, no M/R/G. Abdomen: Bowel sounds present, soft, nontender, no palpable HSM. Musculoskeletal: All 4 limbs examined. The joint exam was negative for synovitis, deformity, or instability with the exception of: No visibly swollen joints. Perhaps slight tenderness just posterior tothe right lateral epicondyle, no right elbow effusion, excellent range of motion, no crepitation, mild discomfort right lateral elbow with resisted wrist extension. Shoulders, hands, hips and knees move normally. Small effusion right knee, no ligamentous instability. Neurologic: No focal deficits Cutaneous: He does have mild scaly rash compatible with psoriasis over the elbows and slightly over the anterior tibial tuberosity region. He does have a few small areas of resolving alopecia posteriorscalp with some scattered mild erythema in the scalp Spine: Good range of motion ASSESSMENT: 1: Psoriasis, but overall do not feel he has psoriatic arthritis 2: Right elbow pain and knee arthralgia which appear noninflammatory. He has a known medial meniscaltear right knee 3: Alopecia areata PLAN: 1: Long discussion with the patient. We discussed that in many cases there is no underlying systemicdisease with alopecia areata. Interestingly, psoriasis can sometimes be associated although in my experience you do not often see alopecia areata in patients with psoriasis. Typically the treatment is going to be topical or intralesional like he has done through dermatology. 2: I do think he has psoriasis but at this point no stigmata of psoriatic arthritis. While he has some right elbow and knee pain, these do not appear inflammatory. I showed him some pictures of psoriatic arthritis and certainly happy to see him back if he develops visibly swollen joints. He should continue to manage psoriasis topically through dermatology. He does not feel the joint pain is bad enough to warrant additional evaluation such as MRI of his right elbow. 3: We will proceed with a few additional tests to rule out underlying connective tissue disease which is not suspected clinically but will check CBC AST creatinine sed rate CRP DAMION, SUSHANT, double-stranded DNA antibodies and repeat TSH. I will send him a letter with results and let him know whether follow-up in rheumatology would be helpful. Questions answered and he seems satisfied with that explanation. copy to Jossue Chapin M.D. [facility], [facility]. Total time: 45 minutes, greater than 25 minutes counselling and educating on the above TENANCE AIDE documented in this encounter Plan of Treatment Not on filedocumented as of this encounter Results DNA - Anti-dsDNA Antibody (09/01/2016 11:42 AM MAINTENANCE AIDE) athologist Signature Anti-DNA Ab see below Negative PN SOFT Comment: <1:10 Negative Specimen Anatomical Collection Method Collection Time Receive d Time (Source) Location / / Volume Laterality 09/01/2016 11:42 09/01/2016 3:45 AM MAINTENANCE AIDE PM MAINTENANCE AIDE Narrative PN SOFT - 09/02/2016 1:07 PM MAINTENANCE AIDE Performed at [facility], [facility] [place] [address] CLIA number [id number] Finn Laughlin MD LAB_1 Performing Organization Address City/State/ZIP Code Phon e Number PN SOFT [address] [place] [address] Extractable Nuclear Antigen Antibodies (09/01/2016 11:42 AM MAINTENANCE AIDE) P athologist Signature SUSHANT To TRUCK SALES MANAGER 1 0 - 40 PN SOFT Antibody AU/mL Comment: INTERPRETIVE INFORMATION: Ribonucleic Pr otein (SUSHANT)Antibody, IgG ??29 AU/mL or Less ............. Negati ve ??30 - 40 AU/mL ................ Equivo nicholas ??41 AU/mL or Greater .......... Positi ve TRUCK SALES MANAGER antibody is seen in 95-100 percent o f mixed connective tissue disease and is considered specifi c for this syndrome if other antibodies are negative; TRUCK SALES MANAGER is also present in 20-30 percent of systemic lupus erythema tosus and 15-25 percent of progressive systemic sclerosi s. TRUCK SALES MANAGER antigens also contain epitopes that are immunolog ically identical to free Jamison antigens, therefore, the Len h antibody response must be considered when interpreting TRUCK SALES MANAGER results. Performed by [facility], [address] [place] [id number] [email or web address], Toni Chaney MD - Lab. Director SUSHANT [...] Volume Laterality 09/01/2016 11:42 09/01/2016 3:45 AM MAINTENANCE AIDE PM MAINTENANCE AIDE Narrative PN SOFT - 09/02/2016 11:23 PM MAINTENANCE AIDE Performed at [facility] [address] [place] [address] CLIA number [id number] Finn Laughlin MD LAB_1 Performing Organization Address City/State/ZIP Code Phon e Number PN SOFT [address] [place] [address] DAMION - Antinuclear Antibody (09/01/2016 11:42 AM MAINTENANCE AIDE) P athologist Signature Anti-Nuclear Negative Negative PN SOFT Ab Specimen Anatomical Collection Method Collection Time Receive d Time (Source) Location / / Volume Laterality 09/01/2016 11:42 09/01/2016 3:45 AM MAINTENANCE AIDE PM MAINTENANCE AIDE Narrative PN SOFT - 09/02/2016 1:10 PM MAINTENANCE AIDE Performed at [address] [address] CLIA number [id number] Finn Laughlin MD LAB_1 Performing Organization Address City/[facility]/ZIP Code Phon e Number PN SOFT [address] [place] [address] ESR - Sedimentation Rate (09/01/2016 11:42 AM MAINTENANCE AIDE) Analysis Performed At Patho logist Time Signature Sedimentation Rate 5 0 - 15 PN SOFT mm/hr Specimen Anatomical Collection Method Collection Time Receive d Time (Source) Location / / Volume Laterality 09/01/2016 11:42 09/01/2016 AM MAINTENANCE AIDE 11:41 AM MAINTENANCE AIDE Narrative PN SOFT - 09/01/2016 12:18 PM MAINTENANCE AIDE Performed at [address] [address] CLIA number [id number] Finn Laughlin MD LAB_1 Performing Organization Address City/[facility]/ZIP Code Phon e Number PN SOFT [address] [place] [address] (ABNORMAL) CRP - C Reactive Protein (09/01/2016 11:42 AM MAINTENANCE AIDE) P athologist Signature CRP 0.6 (H) 0.0 - 0.5 PN SOFT mg/dL Specimen Anatomical Collection Method Collection Time Receive d Time (Source) Location / / Volume Laterality 09/01/2016 11:42 09/01/2016 AM MAINTENANCE AIDE 11:42 AM MAINTENANCE AIDE Narrative PN SOFT - 09/01/2016 2:37 PM MAINTENANCE AIDE Performed at [facility], [address] [place], [place] [id number] CLIA number [id number] Finn Laughlin MD LAB_1 Performing Organization Address City/[facility]/ZIP Code Phon e Number PN SOFT [address] [place] [address] CBC - Complete Blood Count W/Diff (09/01/2016 11:42 AM MAINTENANCE AIDE) P athologist Signature White Blood Cell 5.0 3.8 [...] / Volume Laterality 09/01/2016 11:42 09/01/2016 AM MAINTENANCE AIDE 11:41 AM MAINTENANCE AIDE Narrative PN SOFT - 09/01/2016 11:47 AM MAINTENANCE AIDE Performed at [facility], [facility] [address] [place] [address] CLIA number [id number] Finn Laughlin MD LAB_1 Performing Organization Address [facility] Code Phon e Number PN SOFT [address] [place] [address] AST - Aspartate Aminotransferase (09/01/2016 11:42 AM MAINTENANCE AIDE) Patholo gist Method Time Signature Aspartate 22 10 - 40 PN SOFT Aminotransferase U/L Specimen Anatomical Collection Method Collection Time Receive d Time (Source) Location / / Volume Laterality 09/01/2016 11:42 09/01/2016 AM MAINTENANCE AIDE 11:42 AM MAINTENANCE AIDE Narrative PN SOFT - 09/01/2016 2:37 PM MAINTENANCE AIDE Performed at [facility], [address] [place] [address] CLIA number [id number] Finn Laughlin MD LAB_1 Performing Organization Address City/[facility]/ZIP Code Phon e Number PN SOFT [address] [place] [address] CREAT - Creatinine (09/01/2016 11:42 AM MAINTENANCE AIDE) P athologist Signature Creatinine Serum 1.00 0.73 [...] / Volume Laterality 09/01/2016 11:42 09/01/2016 AM MAINTENANCE AIDE 11:42 AM MAINTENANCE AIDE Narrative PN SOFT - 09/01/2016 2:37 PM MAINTENANCE AIDE Performed at [facility], [address] [place] [address] CLIA number [id number] Finn Laughlin MD LAB_1 Performing Organization Address City/State/ZIP Code Phon e Number PN SOFT [address] [place] [address] [phone] documented in this encounter Visit Diagnoses Diagnosis Alopecia areata - Primary Psoriasis Other psoriasis Right elbow pain Pain in joint, upper arm Chronic pain of both knees Alopecia areata documented in this encounter Care Teams Community Liaison Relationship Specialty Start Date End Date Raulito Saez, INFANTRY UNIT LEADER, BOILER FIREMAN PCP - General 12/24/10 09/25/18 documented as of this encounter
--- OUTSIDE RECORDS SUMMARY | 2022-06-18 08:43 | XMS_ITS | Encounter Summary ---
:1970 Author Organization [employer] Address [address], [place] [address] Care Team Providers Name Role Phone Raulito Saez Yemi LUNDBERG CNP Primary Care Provider [phone] Reason for Visit Reason Comments Follow-up asthma Encounter Details Date Type Department Care Team Description 07/05/2017 Office Visit [facility] Brenda Copeland, Asthma, unspecified asthma s everity, unspecified whether complicated, unspecified whether persistent (Primary Dx); [address] Otf Berkowitz MD Need for prophylactic vaccination and in oculation against influenza; [place] [address] [address] Chronic sinusitis, unspecifi ed location [phone] [place] [address] Social History Tobacco Use Types Packs/Day Years Used Date Smoking Tobacco: Former Cigarettes 1 Quit : 1990 Smokeless Tobacco: Never Alcohol Use Standard Drinks/Week Comments Yes 3 (1 standard drink = 0.6 oz pure alcoho l) Sex Assigned at Date Recorded Not on file documented as of this encounter Last Filed Vital Signs Vital Sign Reading Time Taken Comments Blood Pressure 124/72 07/05/2017 9:31 AM CDT Pulse 68 07/05/2017 9:31 AM CDT Temperature - - Respiratory Rate - - Oxygen Saturation 97% 07/05/2017 9:31 AM CDT Inhaled Oxygen Concentration - - Weight 100.2 kg (221 lb) 07/05/2017 9:31 AM CDT Height 182.9 cm (6') 07/05/2017 9:31 AM CDT Body Mass Index 29.97 07/05/2017 9:31 AM CDT documented in this encounter Patient Instructions Patient InstructionsBrenda Copeland MD - 07/05/2017 9:00 AM CDT Advair and AirDuo have the same ingredients but different concentrations. The only way to know if they provide equivalent efficacy is to try it and see what happens. The dosing is the same. COMPARE the cost. Nucala is the name of the drug intended for asthma but in some individuals, it has been helpful in minimizing polyps. documented in this encounter Progress Notes Brenda Copeland MD - 07/05/2017 12:26 PM CDT NAME: HAYDEN AMARO MR#: [id number] CSN: [id number] AUTHENTICATING CLINICIAN: Brenda Copeland MD CONFIRM #: [id number] LOC: 514 CLINIC PROGRESS NOTE DATE OF VISIT: 07/05/2017 : 1970 Hayden is a 46-year-old white male with asthma, chronic sinusitis, nasal polyposis and allergic rhinitis (positive to all allergens tested). Prior to undergoing a Robert fundoplication years ago, refluxcomplicated the picture. Since surgery, he has had little to no symptoms of gastroesophageal reflux.Hayden is basically here for routine followup and medication refills. He uses Advair 250/50 mcg 1 puff every morning. He exercises 4-5 times a week with no interference of activity. Exercise includes lifting free weights and walking. No colds have gone into his chest. No nighttime awakening because of breathing issues. It has been months since he last used albuterol. Again, reflux is not currently a problem. Hayden has had more problems with his sinuses. He has had 3 infections requiring antibiotics in the past 6 months. Five days ago. He completed a prescribed a 10- day course of Augmentin for congestion, purulent drainage which is now clear. He was prescribed prednisone which he plans to start in the nextday or 2. Sense of smell varies with degree of congestion. He does use fluticasone nasal spray on a daily basis. He found QNASL to be more irritating. He also uses a saline washes with budesonide on average of weekly. Hayden has undergone surgery. Repeat surgery was suggested, but he does not feel he is at the point where that is necessary. Hayden has 2 daughters, the oldest, 19, will be graduating [employer] this spring, hoping to attend graduate school in clinical psychology. There are 3 Labradoodle dogs. Nonsmoker. 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 PHYSICAL EXAM: VITAL SIGNS: BP 124/72, pulse 68 (regular), height 72 inches, weight 221 pounds, O2 sat 97% on room air. GENERAL: Healthy male without distress. No obvious congestion noted. SKIN: Warm, dry. No rash. HEENT: Eyes: Conjunctivae clear. PERRLA. Ears: Canals patent. TMs normal. Nose: Congested, pale, no obvious polyps identified. Oropharynx clear. Teeth and gums good repair. NECK: Supple. No adenopathy. Thyroid not palpable. LUNGS: Clear with good air movement. No wheezes, rales or rhonchi. CV: Regular rate and rhythm. Normal S1, S2. No murmurs, rubs or gallops. Spirometry: Borderline obstruction, not changed compared to previous. FEV1 3.26 L, 76%; FVC 4.44 L, 81%; ratio 73%; small airflow 2.36 L/S, 61% of predicted. IMPRESSION: 1.Asthma. We did discuss Advair and AirDuo which have the same ingredients, but slightly different concentrations. I did change Hayden from the middle dose Advair to the higher dose AirDuo. If it does not provide similar efficacy, I will be notified. If it does, the hope would be to try to taper the dose at upcoming visit. Importance of ongoing exercise emphasized. If symptoms and/or bronchodilator use change, and especially if there is not a good reason, further evaluation is warranted. 2.Rhinitis/chronic sinusitis. The goal of treatment here is to minimize pulmonary exacerbations and improve quality of life. Risks and benefits of recurrent systemic steroid burst discussed. Benefits of ongoing nasal steroid sprays reviewed. No interest in immunotherapy at this time. PLAN: 1.Ongoing allergen avoidance encouraged. 2.Flu shot given. 3.Advair Diskus 250/50 mcg 1 puff in the a.m. or AirDuo 232/14 mcg 1 puff in the a.m. Both can be increased to twice daily during flares. 4.Albuterol 2 puffs q.4 hours p.r.n. 5.Fluticasone nasal spray 2 sprays per naris daily. 6.Albuterol to have available. 7.Return to the clinic with me 1 year or p.r.n. EAGLE:NOHEMY C: CONFIRM #: [id number] Brenda Copeland MD - 07/05/2017 9:00 AM CDT Complete note dictated. documented in this encounter Plan of Treatment Not on filedocumented as of this encounter Visit Diagnoses Diagnosis Asthma, unspecified asthma severity, uns pecified whether complicated, unspecified whether persistent ([facility]) - Primary Need for prophylactic vaccination and in oculation against influenza Chronic sinusitis, unspecified location documented in this encounter Care Teams Supervisor Seaming Relationship Specialty Start Date End Date Raulito Saez, COLOR CHECKER, BROACH GRINDER PCP - General 12/24/10 09/25/18 documented as of this encounter
--- OUTSIDE RECORDS SUMMARY | 2022-06-18 08:43 | XMS_ITS | Encounter Summary ---
:1970 Author Organization [facility] Address [address], [place] [address] Care Team Providers Name Role Phone Jossue Chapin MD Primary Care Provider Reason for Visit Reason Comments Refill Encounter Details Date Type Department Care Team Description 10/09/2019 Refill [facility] [address] Brenda Guaman MD Refill [address] [place] [address] [place], [place] [address] (Wo rk) Social History Tobacco Use Types Packs/Day Years Used Date Smoking Tobacco: Former Cigarettes 1 Quit : 1990 Smokeless Tobacco: Never Alcohol Use Standard Drinks/Week Comments Yes 3 (1 standard drink = 0.6 oz pure alcoho l) Sex Assigned at Date Recorded Not on file documented as of this encounter Nursing Notes Hemalatha Kelley RN - 10/09/2019 3:12 PM CST Provider EAGLE. LV: 09/26/18. plan: Return to clinic with me 1 year or p.r.n.. FV: 11/19/19. Refill request for Wixela. Refill approved per SO. Note complete. STICKER documented in this encounter Plan of Treatment Not on filedocumented as of this encounter Visit Diagnoses Not on filedocumented in this encounter Care Teams Lead Injection Mold Technician Relationship Specialty Start Date End Date Jossue Chapin MD PCP - General 09/26/181999 [place] [address] documented as of this encounter
--- OUTSIDE RECORDS SUMMARY | 2022-06-18 08:43 | XMS_ITS | Encounter Summary ---
:1970 Author Organization [facility] Address [address] [place] [address] Care Team Providers Name Role Phone Jossue Chapin MD Primary Care Provider Encounter Details Date Type Department Care Team Description 11/24/2020 Lab Visit [facility] Laboratory Preop examination [address] [place] [address] Social History Tobacco Use Types Packs/Day Years [...] Name Priority Date/Time Associated Diagnosis Comme nts 2019 NOVEL Routine 11/24/2020 9:20 AM Preop examination Resu lts for this CORONAVIRUS MAT CUTTER procedure are i n the results section. documented in this encounter Results Asymptomatic - 2019 Novel Coronavirus (COVID-19) (11/24/2020 9:20 AM MAT CUTTER) [facility] Method Time Signature COVID-19 Not Not 11/24/2020 [facility] Interpretation Detected Detected 6:26 PM CENTRAL LAB MAT CUTTER Specimen Anatomical Collection Method Collection Time Receive d Time (Source) Location / / Volume Laterality Swab (Source Non-blood 11/24/2020 9:20 AM 9:33 Required) Collection / MAT CUTTER AM MAT CUTTER Unknown Narrative [facility] - 11/24/2020 6:26 PM MAT CUTTER Test performed by Shell Reprint Operator Mediated Amplification. TMA has been shown to be equivalent to commercial real-time PCR t ests. This test has been authorized by the FDA under an Emergency Use Authorization (EUA) for use by authorized laboratories. Jossue Chapin MD LAB_1 Performing Organization Address City/State/ZIP Code Phon e Number [facility] [address] [address] documented in this encounter Visit Diagnoses Diagnosis Preop examination Preoperative examination, unspecified documented in this encounter Care Teams Rn House Supervisor Relationship Specialty Start Date End Date Jossue Chapin MD PCP - General 09/26/181999 [place] [address] documented as of this encounter
--- OUTSIDE RECORDS SUMMARY | 2022-06-18 08:43 | XMS_ITS | Encounter Summary ---
:1970 Author Organization [employer] Address [address], [place] [address] Care Team Providers Name Role Phone Jossue Chapin MD Primary Care Provider Encounter Details Date Type Department Care Team Description 05/08/2020 shoshana De La Paz [phone] Social History Tobacco Use Types Packs/Day Years Used Date Smoking Tobacco: Former Cigarettes 1 Quit : 1990 Smokeless Tobacco: Never Alcohol Use Standard Drinks/Week Comments Yes 3 (1 standard drink = 0.6 oz pure alcoho l) Sex Assigned at Date Recorded Not on file documented as of this encounter Progress Notes FAMILY MEDICINESHOSHANA PROVIDER - 05/08/2020 12:00 AM CDT shoshana Treatment Plan Diagnosis Sinusitis Visit Date May 08, 2020 Hayden Stoneranthony Date of : 70 Provider Mojgan Dodson, Nurse Practitioner Note From Provider Tay Blake, please follow the treatment plan I've created just for you! Request a Call Back with any questions or concerns. I hope you feel better soon! Mojgan Treatment Plan Since you have a bacterial infection, let's try an antibiotic. I sent a prescription to [facility] . I???ve prescribed high dose amoxicillin, which the latest evidence recommends as the best and safest antibiotic to clear up your bacterial infection faster. I???ve also listed a few self-caretips to soothe your symptoms while the antibiotic kills the bacteria. If your symptoms don't improveafter 4 days, or if you have questions, select Help to Request a Call Back and we'll adjust your treatment for free. Order(s) amoxicillin 500 mg capsule Take 2 capsule three times a day as directed for 7 days Note: Refills: None Sent To: [facility] [address] [place] [address] [place], [place] [id number] Treatment Plan Self Care Tip Topics Inflammation Relief with Ibuprofen Avoid Decongestants and Antihistamines Relieve Facial Pressure with Nasal Steroids How to Take Your Nasal Steroid Warm Packs Steam Therapy Irrigate Your Sinuses What to Expect Our goal is to treat the infection and to reduce the inflammation of your sinus tissues to promote drainage. This will make you feel better quickly. If you follow the recommendations I made on the Treatment tab, your symptoms should begin to improve in 4 days of following this treatment plan. If your symptoms haven???t improved after 4 days, select Help to Request a Call Back and we???ll call you back in about an hour to adjust your treatment for free. What to Watch Out For Give us a call immediately if you experience: ??? Vision changes ??? Redness and swelling of the eyes or face ??? Increasing congestion ??? Worsening pain ??? High fevers My Conditions, Orders, Allergies as of May 08, 2020 Standard condition list Asthma Current orders amoxicillin (amoxicillin) Advair Diskus (fluticasone propion-salmeterol) Allergies None [facility] Information [facility] We are an online clinic open 11/04. If you have any questions or comments about this visit, please call or email [email or web address]. documented in this encounter Plan of Treatment Not on filedocumented as of this encounter Visit Diagnoses Not on filedocumented in this encounter Care Teams Wooden Barrel Mechanic Relationship Specialty Start Date End Date Jossue Chapin MD PCP - General 09/26/181999 [place] [address] documented as of this encounter
--- OUTSIDE RECORDS SUMMARY | 2022-06-18 08:43 | XMS_ITS | Encounter Summary ---
:1970 Author Organization [email or web address] Address [address], [place] [address] Care Team Providers Name Role Phone Raulito Saez CHITO LUNDBERG Primary Care Provider [phone] Reason for Visit Reason Comments Refill Encounter Details Date Type Department Care Team Description 04/17/2016 Refill [facility] Brenda Copeland MD Refill [address] [facility] [address] [place] [id number] [place] [address] [phone] (Wo rk) Social History Tobacco Use Types Packs/Day Years Used Date Smoking Tobacco: Never Assessed Sex Assigned at Date Recorded Not on file documented as of this encounter Nursing Notes Leonor Finney RN - 04/20/2016 9:23 AM CDT Refill denied per [facility]. Pt will have medication refilled at f/u appt 04/20/16. Note complete. Brenda Copeland MD - 04/19/2016 1:22 PM CDT Wait until appt tomorrow STIAN COUNSELOR Benita Corona RN - 04/19/2016 9:22 AM CDT [facility] pt:last seen 01/21/15.Has f/u appt tomorrow 04/20/16.ok to refill Advair 250/50 x 1, or wait til appt tomorrow?Please advise. documented in this encounter Plan of Treatment Not on filedocumented as of this encounter Visit Diagnoses Not on filedocumented in this encounter Care Teams Log Rider Relationship Specialty Start Date End Date Raulito Saez, SHANK TAPER, SWEATBAND MAKER PCP - General 12/24/10 09/25/18 documented as of this encounter
--- OUTSIDE RECORDS SUMMARY | 2022-06-18 08:43 | XMS_ITS | Encounter Summary ---
:1970 Author Organization [facility] Address [address] [address] Care Team Providers Name Role Phone Raulito Saez Yemi LUNDBERG CNP Primary Care Provider [phone] Reason for Visit Reason Comments Refill Encounter Details Date Type Department Care Team Description 08/31/2018 Refill [facility] Brenda Copeland MD Refill [address] [facility] [place] [address] [place], [place] [id number] [place] [phone] (Wo rk) Social History Tobacco Use Types Packs/Day Years Used Date Smoking Tobacco: Former Cigarettes 1 Quit : 1990 Smokeless Tobacco: Never Alcohol Use Standard Drinks/Week Comments Yes 3 (1 standard drink = 0.6 oz pure alcoho l) Sex Assigned at Date Recorded Not on file documented as of this encounter Nursing Notes Kristel Gallo RN - 09/01/2018 3:24 PM CST x1 fill sent per MD's note lucia. Note complete. [employer] Gila Guallpa MD - 09/01/2018 3:05 PM CST May fill x 1. [employer] Stephanie Abdalla, RN - 09/01/2018 11:37 AM CST [facility] pt [facility] 07/05/17 , RTC one year, appt scheduled 09/26/18. SV - please advise for PJ ok to fill? [employer] documented in this encounter Plan of Treatment Not on filedocumented as of this encounter Visit Diagnoses Not on filedocumented in this encounter Care Teams Locomotive Switch Operator Relationship Specialty Start Date End Date Raulito Saez, MAIL MESSENGER, GAS STATION SUPERVISOR PCP - General 12/24/10 09/25/18 documented as of this encounter
--- OUTSIDE RECORDS SUMMARY | 2022-06-18 08:43 | XMS_ITS | Encounter Summary ---
:1970 Author Organization [employer] Address [address], [place] [address] Care Team Providers Name Role Phone Jossue Chapin MD Primary Care Provider Reason for Visit Reason Comments Follow-up Encounter Details Date Type Department Care Team Description 11/19/2019 Office Visit [facility] [address] Copeland, Mode rate persistent asthma, unspecified whether complicated (Primary Dx); Allergy Allergic rhinitis, unspecified seasonali ty, unspecified trigger; [address] [facility] [address] Acute recurrent sinusitis, [place] [phone] (Wo rk) Social History Tobacco Use Types Packs/Day Years Used Date Smoking Tobacco: Former Cigarettes 1 Quit : 1990 Smokeless Tobacco: Never Alcohol Use Standard Drinks/Week Comments Yes 3 (1 standard drink = 0.6 oz pure alcoho l) Sex Assigned at Date Recorded Not on file documented as of this encounter Last Filed Vital Signs Vital Sign Reading Time Taken Comments Blood Pressure 142/94 11/19/2019 3:56 PM COMMUNITY LIVING SPECIALIST Pulse 59 11/19/2019 3:56 PM COMMUNITY LIVING SPECIALIST Temperature - - Respiratory Rate - - Oxygen Saturation 99% 11/19/2019 3:56 PM COMMUNITY LIVING SPECIALIST Inhaled Oxygen Concentration - - Weight 99.8 kg (220 lb) 11/19/2019 3:56 PM COMMUNITY LIVING SPECIALIST Height 182.9 cm (6') 11/19/2019 3:56 PM COMMUNITY LIVING SPECIALIST Body Mass Index 29.84 11/19/2019 3:56 PM COMMUNITY LIVING SPECIALIST documented in this encounter Patient Instructions Patient InstructionsBrenda Copeland MD - 11/19/2019 4:00 PM CST Dupixent is the new injectable drug that is now approved for chronic polypoid sinusitis. For most plans to cover it, you need to show disease progression within 1 year of polyp/sinus surgery. Call me if you need the CT scan of your sinuses. Keep moving! It is good for your lungs and every other part of your body as well. I would take the antibiotic with the nasal washes with budesonide 1-2x per day while symptomatic. Asyou feel better, taper the frequency of the washes If you are not showing signs of significant improvement in 7-10 days, let me know. Oral steroids maybe your only option. UNITY LIVING SPECIALIST documented in this encounter Progress Notes Brenda Copeland MD - 11/19/2019 4:00 PM CST Hayden is a 49-year-old white male with asthma, chronic sinusitis, and history of nasal polyposis along with allergic rhinitis (positive to most antigens tested). Prior to undergoing a Robert fundoplication years ago, reflux complicated the picture. Haydne has several questions including a if Advair hasbeen associated with alopecia or psoriasis. He has been suffering from hair loss. Years ago, he was screened for a research study and was told he did not qualify because he used inhaled corticosteroids. He also asks about specific component testing for dogs. He has 3 poodle mixes all of which are female. He acknowledges there is no truly hypoallergenic dogs. The last time he picked up Advair, he was given Wixela 250/50 mcg. He uses 1 puff in the morning. Heexercises 4 times per week with no nighttime awakening or interference with activity because of breathing issues. The only time he uses albuterol is when his sinuses are causing him problems. ACT 24. Reflux is controlled with diet, no medications. Summer 2018, days and had sinus surgery by Dr. Echevarria for chronic polypoid sinusitis. Soon aftersurgery, he did regain his sense of smell. He suspects he has another sinus infection currently withincreased pressure, purulent drainage and worsening headaches. He uses fluticasone nasal spray on a daily basis. With infections, he will add saline plus budesonide washes. He has not found in requesting steroids and/or antibiotics. He claims he cannot remember the last time he flew with out getting an infection. Hayden has 2 daughters, the oldest, 19, will be graduating [employer] this spring, hoping to attend graduate school in clinical psychology. There are 3 Labradoodle dogs. Nonsmoker. 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 PHYSICAL EXAM: BP (!) 142/94 (BP Location: Right Arm, BP Cuff Size: Large) Pulse (!) 59 Ht 1.829 m (6') Wt 99.8 kg (220 lb) SpO2 99% BMI 29.84 kg/m?? Congested but otherwise healthy appearing male. Skin: No rashes. Eyes: Conjunctiva clear. PERRL. Ears: Canals patent. TMs normal. Nose: Healthy-appearing mucosa, normal coloration, moist membranes. No edema, purulence or polyps. Oropharynx: Normal. Teeth and gums in good repair. Neck: No palpable adenopathy. No thyromegaly. Lungs: Clear lung gardiner, with good air movement. No wheezes, rales or rhonchi. CV: RRR. Normal S1, S2. No murmurs, rubs or gallops. OBJECTIVE TESTS: PFT: Slightly more restrictive but pattern remains unchanged. No obstruction on inspiratory or expiratory flow volume loop. FEV1: 3.50 L, 83 % of predicted. FVC: 4.42 L, 81 % of predicted. FEV1/FVC: 79, 101% of predicted. Small air flow: 3.11 L/sec, 84% of predicted. IMPRESSION: 1. Asthma. Stable spirometry with minimal rescue inhaler use is reassuring. Importance of ongoing exercise reviewed. 2. Chronic polypoid sinusitis. Dupixent is now approved for chronic polypoid sinusitis. Some insurance plans require regrowth of polyp 1 year after surgery to qualify for coverage. I offered to arrangeor a sinus CT scan. He has a follow-up appointment with the ENT surgeon soon. Written information onDupixent given. No prior authorization initiated at this time. 3. Allergic rhinitis. Ongoing avoidance reviewed. No desire or indication for immunotherapy discussed. Specific IgE for Can f 5 is available but I am skeptical anything will change with the information. 4. Alopecia. There is an association between alopecia and other atopic tendencies but the mechanism is not well known. PLAN: 1. Importance of ongoing exercise emphasized. Allergic avoidance reviewed. 2. Augmentin 875-125 mg 1 PO bid for 21 days 3. Wixela 250/50 mcg 1 puff in a.m., increasing to b.i.d. as needed. 4. Albuterol 2 puffs q.4 hours p.r.n. 5. Budesonide 0.5 mg/2 mL with nasal saline washes twice daily now, tapering to as needed when able. 6. Return to clinic with me 1 year or p.r.n. ?? UNITY LIVING SPECIALIST documented in this encounter Plan of Treatment Not on filedocumented as of this encounter Visit Diagnoses Diagnosis Moderate persistent asthma, unspecified whether complicated ([facility]) - Primary Allergic rhinitis, unspecified seasonali ty, unspecified trigger Alopecia areata Acute recurrent sinusitis, unspecified l ocation documented in this encounter Care Teams Computer Applications Developer Relationship Specialty Start Date End Date Jossue Chapin MD PCP - General 09/26/181999 [place] [address] documented as of this encounter
--- OUTSIDE RECORDS SUMMARY | 2022-06-18 08:43 | XMS_ITS | Encounter Summary ---
:1970 Author Organization [facility] Address [address] [address] Care Team Providers Name Role Phone Jossue Chapin MD Primary Care Provider Encounter Details Date Type Department Care Team Description 12/15/2021 Orders Only HIM DEPARTMENT Provider, Ladonna valera [place] [address] Social History Tobacco Use Types Packs/Day Years [...] Priority Date/Time Associated Diagnosis Comme nts PFT 12/15/2021 Results for thi s procedure are in the resu lts section. documented in this encounter Results PFT (12/15/2021) Narrative This result has an attachment that is no t available. Interface Provider DUMMY/OTHER/AR documented in this encounter Visit Diagnoses Not on filedocumented in this encounter Care Teams Jig Inspector Relationship Specialty Start Date End Date Jossue Chapin MD PCP - General 09/26/181999 [place] [address] documented as of this encounter
--- OUTSIDE RECORDS SUMMARY | 2022-06-18 08:44 | XMS_ITS | Encounter Summary ---
:1970 Author [facility] Address [address] [address] Care Team Providers Name Role Phone Raulito Saez APRN, CNP Primary Care Provider [phone] Reason for Visit Reason Comments IMMUNIZATIONS Encounter Details Date Type Department Care Team Description 07/22/2011 Immunization [facility] Nurse, [place] Need f or influenza Medicine Fp vaccination (Primary [address] [place]x) [place] [address] Social History Tobacco Use Types Packs/Day Years Used Date Smoking Tobacco: Never Assessed Sex Assigned at Date Recorded Not on file documented as of this encounter Plan of Treatment Not on filedocumented as of this encounter Visit Diagnoses Diagnosis Need for influenza vaccination - Primary Need for prophylactic vaccination and in oculation against influenza documented in this encounter Care Teams Administrative Appeals Tribunal Member Relationship Specialty Start Date End Date Raulito Saez APRN, CNP PCP - General 12/24/10 09/25/18 documented as of this encounter
--- OUTSIDE RECORDS SUMMARY | 2022-06-18 08:44 | XMS_ITS | Encounter Summary ---
:1970 Author [facility] Address [address] [address] Care Team Providers Name Role Phone NadjaGalen barraganedith Bragg APRN, CNP Primary Care Provider [phone] Reason for Visit Reason Comments Abdominal Pain Fever Encounter Details Date Type Department Care Team Description 04/05/2012 Hospital Encounter [facility] Ledy Deion Abdominal pain, unspecified site; Andrei Haro MD Diverticulitis [id number] [id number] [phone] Social History Tobacco Use Types Packs/Day Years Used Date Smoking Tobacco: Never Assessed Sex Assigned at Date Recorded Not on file documented as of this encounter Last Filed Vital Signs Vital Sign Reading Time Taken Comments Blood Pressure 153/83 04/05/2012 8:22 PM CDT Pulse 86 04/05/2012 8:22 PM CDT Temperature 39.2 ??C (102.6 ??F) 04/05/2012 3:53 PM CDT Respiratory Rate 16 04/05/2012 3:53 PM CDT Oxygen Saturation - - Inhaled Oxygen Concentration - - Weight - - Height - - Body Mass Index - - documented in this encounter Medications at Time of Discharge Medication Sig Dispensed Refills Start Date End Date ALBUterol sulfate HFA Inhale 2 puffs every 1 Inhaler 4 08/1910/17/2012 108 (90 BASE) MCG/ACT 4 hours as needed. inhalerIndications: HOLD rx on file until Unspecified pt. requests refill. asthma(493.90) ([facility]) amoxicillin-clavulanate Take 1 tablet by 10 tablet 0 201104/13/2012 (aka AUGMENTIN) tablet mouth 2 times daily for 5 days. fluticasone (AKA Place 2 sprays into 16 g 11 09/15/2011 10/17/2012 FLONASE) 50 MCG/ACT each nostril daily nasal solution (every 24 hours). Dose is for each nostril. Indications: ALLERGIC RHINITIS fluticasone-salmeterol Inhale 1 puff 2 times 1 Inhaler 09/23/2012 (AKA ADVAIR DISKUS) daily. Needs appt 250-50 MCG/DOSE diskus before further inhalerIndications: refills. Unspecified asthma(493.90) ([facility]) Naproxen (aka EC Take 1 tablet by 14 tablet 0 04/08/2012 NAPROSYN) TBEC mouth daily (with breakfast) for 14 days. Indications: GOUT documented as of this encounter Progress Notes Franchesca Jacobs RN - 04/05/2012 8:23 PM CDTEncounter addended by: Franchesca Jacobs RN on: 04/07/2012 4:58 PM
Documentation filed: Charges VN documented in this encounter ED Notes Deion Villafana MD - 04/05/2012 8:23 PM CDT Patient ID Hayden Lanierpf 1970 SUBJECTIVE: 41 y.o. male presents with 2 days of moderate sharp left lower quadrant abdominal pain. Associated symptoms include, chills and fever .Patient has had epigastric pain one week ago. The patient does not have flank pain. Review of systems: No blood in stool.No hematemesis. No pain in scrotum. No groin masses. Past medical and surgical history reviewed on EMR. Medications reviewed on EMR Allergies Allergen Reactions ??? Levofloxacin LW Reaction: internal bleeding ??? Prednisone LW Reaction: internal bleeding ROS: As noted in HPI, all other systems are negative OBJECTIVE: Appears well in no distress well hydrated. Blood pressure 153/83, pulse 86, temperature 103.3 ??C (217.9 ??F), temperature source Oral, resp. rate 16. Chest: Clear to auscultation Heart: Heart sounds normal with no murmurs Abdomen: Normal appearance. There are normal bowel sounds. He has moderate RLQ tenderness. There is not rebound tenderness. No masses. There is not flank pain with percussion. Pulses: peripheral pulses symmetrical Labs Reviewed LAB BASIC METABOLIC PANEL - Abnormal; Notable for the following: ??? Lab Glucose 123 (*) All other components within normal limits Narrative: Performed at [facility], [address] [place] [address] LAB COMPLETE BLOOD COUNT W/DIFF - Abnormal; Notable for the following: ??? White Blood Cell Count 14.3 (*) All other components within normal limits Narrative: Performed at [facility], [address] [place] [address] N/O LAB DIFFERENTIAL - Abnormal; Notable for the following: ??? Absolute Neutrophils 12.4 (*) ??? Absolute Lymphocytes 0.7 (*) ??? Absolute Monocytes 1.0 (*) All other components within normal limits Narrative: Performed at [facility], [address] [place] [address] N/O LAB ANION GAP Narrative: Performed at [facility], [address] [place] [address] CT: Diverticulitis with contained perforation. Urgent Care treatments: IV fluids 1 liter and Morphine 2 mg, Unasyn 3 Gm Response to treatment: Mild releif ASSESSMENT: Diverticulitis with contained perforation. PLAN: Admit to [facility] under the hospitalist service. documented in this encounter Miscellaneous Notes Medication History - Mohsen Diaz MD - 04/05/2012 8:23 PM CDT INPATIENT MEDS Encounter Date: 04/05/12 0.9% sodium chloride infusion Start Date:04/05/12, End Date:04/05/12, Frequency:ONCE Taken Dose Action User Route Site Recorded Comment Reason 07/18/12 2020 500 mL Removed Sonia Souza RN Intravenous - 04/05/122030 saline locked, wasted 400cc - 04/05/121939 500 mL Started Sonia Souza RN Intravenous - 04/05/122029 - - acetaminophen (TYLENOL) tablet 1,000 mg Start Date:04/05/12, End Date:04/05/12, Frequency:ONCE Taken Dose Action User Route Site Recorded Comment Reason 04/05/122019 1,000 mg Given Sonia Souza RN Oral - 04/05/122023 - - morphine injection 2 mg Start Date:04/05/12, End Date:04/05/12, Frequency:ONCE Taken Dose Action User Route Site Recorded Comment Reason 04/05/121935 2 mg Given Flora Fitzgerald RN Intravenous - 04/05/121941 - - ampicillin-sulbactam (UNASYN) injection 3 g Start Date:04/05/12, End Date:04/05/12, Frequency:ONCE Taken Dose Action User Route Site Recorded Comment Reason 04/05/122014 3 g Infused Sonia Souza RN Intravenous - 04/05/122024 - - 04/05/121942 3 g Started Flora Fitzgerald RN Intravenous - 04/05/121942 - - diatrizoate meglumine-sodium (MD-GASTROVIEW) solution 15 mL Start Date:04/05/12, End Date:04/05/12, Frequency:ONCE Taken Dose Action User Route Site Recorded Comment Reason 04/05/12 1630 15 mL Given Satnam Corona RN Oral - 04/05/12 182 - - diatrizoate meglumine-sodium (MD-GASTROVIEW) solution 15 mL Start Date:04/05/12, End Date:04/05/12, Frequency:ONCE Taken Dose Action User Route Site Recorded Comment Reason 04/05/12 170 15 mL Given Yeimi Ken RN Oral - 04/05/12 170 - - 0.9% sodium chloride infusion Start Date:04/05/12, End Date:04/05/12, Frequency:ONCE Taken Dose Action User Route Site Recorded Comment Reason 04/05/121939 1,000 mL Infused Sonia Souza RN Intravenous - 04/05/122026 - - 04/05/12 1715 1,000 mL Given Sonia Souza RN Intravenous - 04/05/12 1809 - - documented in this encounter Plan of Treatment Not on filedocumented as of this encounter Procedures Procedure Name Priority Date/Time Associated Diagnosis Comme nts CT ABD PELVIS W IV Routine 04/05/2012 6:31 PM Abdominal pain, Results for this CONT CDT unspecified site procedure a re in the results section. ANION GAP STAT 04/05/2012 5:40 PM Results f or this CDT procedure are i n the results section. BASIC METABOLIC PANEL STAT 04/05/2012 5:40 PM Abdominal gloria n, Results for this CDT unspecified site procedure a re in the results section. COMPLETE BLOOD STAT 04/05/2012 5:35 PM Abdominal pain, Resu lts for this COUNT-W/DIFF CDT unspecified site procedure a re in the results section. DIFFERENTIAL STAT 04/05/2012 5:35 PM Results f or this CDT procedure are i n the results section. documented in this encounter Results CT Abd Pelvis W IV Cont (04/05/2012 6:31 PM CDT) Anatomical Region Laterality Modality Abdomen, Pelvis Other Specimen (Source) Anatomical Location Collection Method / Collectio n Time Received Time / Laterality Volume Impressions 04/05/2012 7:12 PM CDT IMPRESSION: 1. Findings felt to represent acute sigm oid diverticulitis with a loculated area of extraluminal bowel gas . ??Consistent with a contained perforation. ?? 2. Would suggest followup barium enema o r endoscopy is posterior appropriate treatment to exclude any und erlying lesion. 3. Mild early hepatic steatosis. 4. Appearance of a hiatal hernia some so ft tissue prominence at the level of the hernia probably redundant m ucosa but upper GI or endoscopy recommended at this level as w ell. ?? 5. Findings were discussed with the [facility] clinician at 1910 hours on date of study. Narrative 04/05/2012 7:12 PM CDT No comparison. Axial images of the abdomen and pelvis w ere obtained after ministration of oral contrast 100 mL non ionic contrast. ?? Lung bases are unremarkable. ??No pleura l or pericardial effusion seen. There is a hiatal hernia. ??Eccentric op acification of some of the lumen within the hernia which may be ass ociate with redundant mucosa but could be confirmed with upper GI. Very mild early hepatic steatosis. ??Oth erwise the liver, spleen, pancreas, gallbladder, adrenals and kidn eys are normal. ??No adenopathy. ?? There is a very small amount of free flu id low in the dependent portion of the pelvis in this is associa dennys with rather pronounced inflammatory change consisting of thicke asher of the sigmoid colon with increased. ??Colonic stranding and attenuation. ??There appears to be an associated diverticula with findin gs consistent with diverticulitis and there is questionable contained extraluminal bowel gas at this site is seen on series 4 burton ge 75 and 76. ??There is no obstruction. ?? No other abnormalities. Procedure Note Wally Meade MD - 03/06/2016Formatti ng of this note might be different from the original. No comparison. Axial images of the abdomen and pelvis w ere obtained after ministration of oral contrast 100 mL non ionic contrast. Lung bases are unremarkable. No pleural or pericardial effusion seen. There is a hiatal hernia. Eccentric opac ification of some of the lumen within the hernia which may be ass ociate with redundant mucosa but could be confirmed with upper GI. Very mild early hepatic steatosis. Other ayala the liver, spleen, pancreas, gallbladder, adrenals and kidn eys are normal. No adenopathy. There is a very small amount of free flu id low in the dependent portion of the pelvis in this is associa dennys with rather pronounced inflammatory change consisting of thicke asher of the sigmoid colon with increased. Colonic stranding and at tenuation. There appears to be an associated diverticula with findin gs consistent with diverticulitis and there is questionable contained extraluminal bowel gas at this site is seen on series 4 burton ge 75 and 76. There is no obstruction. No other abnormalities. IMPRESSION IMPRESSION: 1. Findings felt to represent acute sigm oid diverticulitis with a loculated area of extraluminal bowel gas . Consistent with a contained perforation. 2. Would suggest followup barium enema o r endoscopy is posterior appropriate treatment to exclude any und erlying lesion. 3. Mild early hepatic steatosis. 4. Appearance of a hiatal hernia some so ft tissue prominence at the level of the hernia probably redundant m ucosa but upper GI or endoscopy recommended at this level as w ell. 5. Findings were discussed with the [facility] clinician at 1910 hours on date of study. Deion Villafana MD RAD CT ANION GAP (04/05/2012 5:40 PM CDT) P athologist Signature ANION GAP 8 8 - 16 mEq/L HP CONVERSION Specimen Anatomical Collection Method Collection Time Receive d Time (Source) Location / / Volume Laterality 04/05/2012 5:40 PM 2 5:40 CDT PM CDT Narrative HP CONVERSION - 04/05/2012 6:11 PM CDT Performed at [facility], [address] [place] [address] Deion Villafana MD LAB_1 Performing Organization Address City/State/ZIP Code Phon e Number HP CONVERSION (ABNORMAL) Basic Metabolic Panel (04/05/2012 5:40 PM CDT) Patholo gist Method Time Signature Creatinine Serum 1.1 0.4 - 1.3 HP CONVERSION mg/dL Lab Glucose 123 (H) 60 - 100 HP CONVERSION mg/dL Bicarbonate 28 23 - 33 HP CONVERSION mmol/L Chloride 101 98 - 110 HP CONVERSION mEq/L Potassium 3.8 3.5 - 5.2 HP CONVERSION mEq/L Sodium 137 137 - 147 HP CONVERSION mEq/L Blood Urea 15 5 - 26 HP CONVERSION Nitrogen mg/dL Calcium 9.4 8.5 - 10.5 HP CONVERSION mg/dL Est GFR >60 >60 HP CONVERSION Am mL/min/1.7 3m2 Est GFR Non-Afr >60 >60 HP CONVERSION Am mL/min/1.7 3m2 Comment: Normal>60, moderate decrease 30 - 59, se az decrease 15 - 29, renal failure <15 mL/min/1.73 m2 NOTE: ??Choose the eGFR result above pat ropriate for the race of the patient. Specimen Anatomical Collection Method Collection Time Receive d Time (Source) Location / / Volume Laterality 04/05/2012 5:40 PM 2 5:40 CDT PM CDT Narrative HP CONVERSION - 04/05/2012 6:11 PM CDT Performed at [facility], [address] [place] [address] Deion Villafana MD LAB_1 Performing Organization Address City/[facility]/ZIP Code Phon e Number HP CONVERSION (ABNORMAL) Differential (04/05/2012 5:35 PM CDT) [facility] Method Time Signature Absolute 12.4 (H) 1.8 - 8.0 HP CONVERSION Neutrophils k/cmm Absolute 0.7 (L) 1.1 - 4.0 HP CONVERSION Lymphocytes k/cmm Absolute 1.0 (H) 0.2 - 0.8 HP CONVERSION Monocytes k/cmm Absolute 0.0 0.0 - 0.5 HP CONVERSION Eosinophils k/cmm Absolute 0.1 0.0 - 0.2 HP CONVERSION Basophils k/cmm Specimen Anatomical Collection Method Collection Time Receive d Time (Source) Location / / Volume Laterality 04/05/2012 5:35 PM 2 5:35 CDT PM CDT Narrative HP CONVERSION - 04/05/2012 5:46 PM CDT Performed at [facility], [address] [place], [place] [id number] Deion Villafana MD LAB_1 Performing Organization Address [facility] Phon e Number HP CONVERSION (ABNORMAL) Hemogram/Plts/Diff (04/05/2012 5:35 PM CDT) [facility] Method Time Signature White Blood Cell 14.3 (H) 3.8 - HP CONVERSION Count 11.0 k/cmm Red Blood Cell 4.91 4.20 - HP CONVERSION Count 5.90 m/cmm Hemoglobin 15.3 13.4 - HP CONVERSION 17.5 g/dL Hematocrit 44.3 39.0 - HP CONVERSION 51.0 % Mean Corpuscular 90.1 80.0 - HP CONVERSION Volume 100.0 fL RDW 12.4 11.0 - HP CONVERSION 15.0 % Platelet Count 207 140 - 450 HP CONVERSION k/cmm Specimen Anatomical Collection Method Collection Time Receive d Time (Source) Location / / Volume Laterality 04/05/2012 5:35 PM 2 5:35 CDT PM CDT Narrative HP CONVERSION - 04/05/2012 5:46 PM CDT Performed at [facility], [address] [place] [id number] Deion Villafana MD LAB_1 Performing Organization Address City/State/ZIP Code Phon e Number HP CONVERSION documented in this encounter Visit Diagnoses Diagnosis Abdominal pain, unspecified site Diverticulitis Diverticulitis of colon (without mention of hemorrhage) documented in this encounter Care Teams Ballistics Expert Forensic Relationship Specialty Start Date End Date Raulito Saez, HOMEMAKER COMPANION, SOLAR SITE ASSESSMENT SPECIALIST PCP - General 12/24/10 09/25/18 documented as of this encounter
--- OUTSIDE RECORDS SUMMARY | 2022-06-18 08:44 | XMS_ITS | Encounter Summary ---
:1970 Author Organization [employer] Address [address] [address] Care Team Providers Name Role Phone Raulito Saez CHITO LUNDBERG Primary Care Provider [phone] Encounter Details Date Type Department Care Team Description 04/05/2012 - Hospital Encounter [facility] Luis Eduardo Moody, [address], [place] [id number] Unspecified asthma 04/08/2012 [id number] Milian MD [address] [place] [address] [address] [place], [place] [id number] Social History Tobacco Use Types Packs/Day Years Used Date Smoking Tobacco: Never Assessed Sex Assigned at Date Recorded Not on file documented as of this encounter Last Filed Vital Signs Vital Sign Reading Time Taken Comments Blood Pressure 96/71 04/08/2012 2:35 PM CDT Pulse 83 04/08/2012 2:35 PM CDT Temperature 36.5 ??C (97.7 ??F) 04/08/2012 12:17 PM CDT Respiratory Rate 26 04/08/2012 2:35 PM CDT Oxygen Saturation 100% 04/08/2012 12:17 PM CDT Inhaled Oxygen Concentration - - Weight 99.2 kg (218 lb 12.9 oz) 04/05/2012 9:44 PM CDT Height 185.4 cm (6' 1) 04/05/2012 9:44 PM CDT Body Mass Index 28.87 04/05/2012 9:44 PM CDT documented in this encounter Discharge Summaries Danisha Moody DO - 04/08/2012 3:55 PM CDT DISCHARGE SUMMARY Patient ID: Hayden Mckay [id number] 41 y.o. 1970 Admit date: 04/05/2012 Discharge date: 04/08/2012 Discharge Diagnoses: 1) Acute Diverticulitis of colon with perforation, on IV ABX. Tolerating diet well. No surgery needed per Gen Surg 2) Diarrhea: no C diff noted. Likely ABX side effect and diverticulitis related. 3) Normocytic normochromic anemia: dilutional 4) Asthma - not currently wheezing 5) Gouty attack: podagra. No history of gout prior to this event. History: Per admission H&P: Patient is a 41 y.o. Non- male who presents with diverticulitis with perforation. Onset of symptoms was gradual 1 day ago with rapidly worsening course since that time. The pain is located Left lower quadrant. Patient describes the pain as continuous and rated as severe. Pain has been associated with Nausea fevere malaise. Patient denies vomiting blood in teo. Symptoms are aggravated by Movement. Symptoms improve with rest tylenol Pt is s/p rachid fundoplication.and upper GI bleed in the past. Hospital Course: This patient was admitted to the hospital with the diagnosis of acute diverticulitis with performation. He was seen originally in the Urgent Care and sent to [facility] once the CT results were noted. He was seen by General Surgery, Dr. Arreaga, and was followed closely during his hospitalstay by Gen Surg. They did make him NPO, give him IV ABX and did not recommend surgery. He was givenIV Zosyn. He did make progress during his stay and his diet was advanced slowly. Thankfully, he did not require surgery. He did have a mildly high WBC (14) and this was normal by the time of DC. By theday of discharge, he complained of some pain in his left medial aspect of his hallux, podagra pain. Yoel chacon had never had gout and he was sent home with NSAIDS with instructions to follow up with his PCP re: this gout and acute diverticulitis with perforation within one week. He was sent home in stable condition, tolerating his diet (was general by the time of DC), having regular BM's and pain essentiallygone. - Procedures: None - Consults: General Surgery -Diagnostic Tests: CT A/P: 04/05/2012 IMPRESSION: 1. Findings felt to represent acute sigmoid diverticulitis with a loculated area of extraluminal bowel gas. Consistent with a contained perforation. 2. Would suggest followup barium enema or endoscopy is posterior appropriate treatment to exclude any underlying lesion. 3. Mild early hepatic steatosis. 4. Appearance of a hiatal hernia some soft tissue prominence at the level of the hernia probably redundant mucosa but upper GI or endoscopy recommended at this level as well. 5. Findings were discussed with the ordering clinician at 1910 hours on date of study. Disposition: home Patient Instructions: Unchanged [employer] meds that are or will be resumed Medication Sig Dispense Refill ??? albuterol (VENTOLIN HFA) 90 mcg/Actuation inhaler Inhale 2 puffs every 4 hours as needed. HOLD rx on file until pt. requests refill. 1 Inhaler 4 ??? fluticasone (FLONASE) 50 mcg/Actuation nasal spray Place 2 sprays into each nostril daily (every24 hours). Dose is for each nostril. Indications: ALLERGIC RHINITIS 16 g 11 ??? fluticasone-salmeterol (ADVAIR DISKUS) 250-50 mcg/dose diskus inhaler Inhale 1 puff 2 times daily. Needs appt before further refills. 1 Inhaler 11 New prescriptions Medication Sig Dispense Refill ??? amoxicillin-clavulanate (AUGMENTIN) 875-125 mg per tablet Take 1 tablet by mouth 2 times daily for 5 days. 10 tablet 0 ??? naproxen (EC NAPROSYN) 500 mg EC tablet Take 1 tablet by mouth daily (with breakfast) for 14 days. Indications: GOUT 14 tablet 0 Follow-up Information Follow up with Jossue Chapin MD in 1 week. (For hospital follow up) Contact information: [address] [facility] [address] [phone] Total time for discharge: 34 minutes Danisha Moody D.O. Internal Medicine Hospitalist Service documented in this encounter Medications at Time of Discharge Medication Sig Dispensed Refills Start Date End Date ALBUterol sulfate HFA Inhale 2 puffs every 1 Inhaler 4 08/1910/17/2012 108 (90 BASE) MCG/ACT 4 hours as needed. inhalerIndications: HOLD rx on file until Unspecified pt. requests refill. asthma(493.90) ([facility]) amoxicillin-clavulanate Take 1 tablet by 10 tablet 0 201104/13/2012 (aka AUGMENTIN) tablet mouth 2 times daily for 5 days. fluticasone (AKA Place 2 sprays into 16 g 11 09/15/2011 10/17/2012 FLONASE) 50 MCG/ACT each nostril daily nasal solution (every 24 hours). Dose is for each nostril. Indications: ALLERGIC RHINITIS fluticasone-salmeterol Inhale 1 puff 2 times 1 Inhaler 11 09/23/2012 (AKA ADVAIR DISKUS) daily. Needs appt 250-50 MCG/DOSE diskus before further inhalerIndications: refills. Unspecified asthma(493.90) ([facility]) Naproxen (aka EC Take 1 tablet by 14 tablet 0 04/08/2012 NAPROSYN) TBEC mouth daily (with breakfast) for 14 days. Indications: GOUT documented as of this encounter Progress Notes Yolanda Diaz RN - 04/08/2012 3:39 PM CDT Patient all ready for discharge home,had teaching for gout and for diverticulitis.Patient is eating drinking and voiding.Stools still reamain loose,no pain noted after lunch diet today. Yeimi Mccullough RD - 04/08/2012 3:28 PM CDT Nutrition Education Assessment Reason for education: diverticulitis, gout Current Diet: General Oral Intake: tolerated diet well per pt Discharge Diet: Low Fiber, Low Purine Present for Education: Pt, , family Diagnosis Nutrition Diagnosis: (NB-1.1) Food and nutrition related knowledge deficit related to limited/lack of prior exposure to specific diet recommendations as evidenced by change in existing diagnosis or condition and/or patient verbalizing interest in information. Intervention Diet Education: Discussed: rational/risk factors, timeline for diet , foods allowed/avoided, high/low fiber foods, progression to increase fiber, label reading, portion sizes, small frequent meals, eat slowly/chew well, adequate hydration, sample meal plan Information on low, moderate, high purine content foods Provide packet of printed information. [employer] contact information provided Comprehension: Pt verbalized understanding of diet Yeimi Chasity MS, LD, RD Rebekah Streeter HUC - 04/08/2012 2:14 PM CDT Unable to make discharge follow up appt. Patient's MD is non-PN and unavailable on the weekend. Pt. will make appointment. Assisted patient in filling out AB for records to be sent to [facility]. Danisha Moody DO - 04/08/2012 2:05 PM CDT INTERNAL MEDICINE HOSPITALIST DAILY PROGRESS NOTE Admit Date: 04/05/2012 SUBJECTIVE: Patient doing better in terms of abdominal pain. Tolerated his full liquid diet yesterday and had some ham omelette today with no nausea, vomiting or abdominal pain. Complains of R hallux pain medially. No history of gout in past. Review of Systems Pertinent items are noted in HPI. OBJECTIVE: Vitals: Vital Signs Temp: 97.7 ??F (36.5 ??C), Pulse: 60 , Resp: 16 , SpO2: 100 %, BP: 138/94 mmHg (informedRN Ana Luisa), Flow (L/min): 0 , Oxygen Therapy Device: room air Body mass index is 28.87 kg/(m^2). I/O last 3 completed shifts: In: 6105 [P.O.:3570; I.V.:2535] Out: 2049 [Urine:2049] General appearance: NAD, AOx3, Appears stated age, well-nourished Lungs: CTA bilaterally no c/w/r Heart: RRR without murmurs, heaves, thrills or gallops. No S3 or S4 Abdomen: Soft, a little tender over LLQ. +BS Extremities: No clubbing, cyanosis, edema of lower extremities. R hallux and medial aspect erythema,pain with palpation Skin: Warm moist intact. No lesions noted. Neurologic: No focal deficits Imaging: CT A/P: 04/05/2012 IMPRESSION: 1. Findings felt to represent acute sigmoid diverticulitis with a loculated area of extraluminal bowel gas. Consistent with a contained perforation. 2. Would suggest followup barium enema or endoscopy is posterior appropriate treatment to exclude any underlying lesion. 3. Mild early hepatic steatosis. 4. Appearance of a hiatal hernia some soft tissue prominence at the level of the hernia probably redundant mucosa but upper GI or endoscopy recommended at this level as well. 5. Findings were discussed with the ordering clinician at 1910 hours on date of study. Labs: Lab Results Component Value Date/Time White Blood Cell Count 7.7 04/07/2012 07:08 Red Blood Cell Count 4.16* 04/07/2012 07:08 Hemoglobin 12.8* 04/07/2012 07:08 Hematocrit 37.5* 04/07/2012 07:08 Mean Corpuscular Volume 90.1 04/07/2012 07:08 RDW 13.0 04/07/2012 07:08 Platelet Count 193 04/07/2012 07:08 Lab Results Component Value Date/Time Creatinine Serum 1.1 04/06/2012 07:09 Lab Glucose 113* 04/05/2012 23:09 Bicarbonate 25 04/05/2012 23:09 Chloride 107 04/05/2012 23:09 Potassium 3.8 04/06/2012 07:09 Sodium 139 04/06/2012 07:09 Blood Urea Nitrogen 13 04/05/2012 23:09 Calcium 8.9 04/05/2012 23:09 Est GFR Am >60 04/06/2012 07:09 Est GFR Non-Afr Am >60 04/06/2012 07:09 Lab Results Component Value Date/Time INR 1.0 01/07/1999 13:47 ASSESSMENT: 1) Diverticulitis of colon with perforation, on IV ABX. Tolerating diet well. No surgery needed per Gen Surg 2) Diarrhea: no C diff noted. Likely ABX side effect and diverticulitis related. 3) Normocytic normochromic anemia: dilutional 4) Asthma - not currently wheezing 5) Gouty attack: podagra. No history of gout prior to this event. PLAN: DC home with PO ABX. Will also send home with naprosyn. Needs follow up with PCP in one week. Doesn't have one but has information on Dr. Chapin that he'd like to follow with. Danisha Moody D.O. Internal Medicine Hospitalist Service Immanuel Coyle MD - 04/08/2012 10:55 AM CDT No issues overnight. He was advanced to fulls last night and tolerated his diet well. No pain currently. Still diarrhea. Denies any chest pain, difficulty breathing, nausea, vomiting, lightheadedness, dizziness or other problems. BP 136/82 Pulse 64 Temp(Src) 36.6 ??C (97.9 ??F) (Oral) Resp 16 Ht 1.854 m (6' 1) Wt 99.25 kg (218 lb 12.9 oz) BMI 28.87 kg/m2 SpO2 98% Intake/Output Summary (Last 24 hours) at 04/08/12 0711 Last data filed at 04/08/12 0647 Gross per 24 hour Intake 6105 ml Output 1625 ml Net 4480 ml alert and pat NAD, lying in bed CTA RRR soft, nondistended, very minimal tenderness (less than yesterday) LLQ - nontender with percussion perforated diverticulitis on zosyn WBC returned to normal advanced to fulls yesterday - will discuss with staff likely further advancement of diet monitor clinically will continue to follow with you surgery staff doing well as above. denies abd pain afvss abd soft nontender a/p-resoving diverticulitis general diet dc home this afternoon from our standpoint with po antibiotics such as augmentin for 10 days Danisha Moody, DO - 04/07/2012 4:57 PM CDT INTERNAL MEDICINE HOSPITALIST DAILY PROGRESS NOTE Admit Date: 04/05/2012 SUBJECTIVE: Patient doing better. Eating chocolate pudding when enter room. He's voraciously hungry and happy toeat pudding. Having some loose stools, diarrhea 4-5 time since ABX started. No complaints of any abdominal pain, CP, SOB, F, C. Review of Systems Pertinent items are noted in HPI. OBJECTIVE: Vitals: Vital Signs Temp: 97.9 ??F (36.6 ??C), Pulse: 57 , Resp: 16 , SpO2: 100 %, BP: 123/68 mmHg, Flow (L/min): 0 , Oxygen Therapy Device: room air Body mass index is 28.87 kg/(m^2). I/O last 3 completed shifts: In: 3255 [P.O.:1120; I.V.:2135] Out: 2275 [Urine:2275] General appearance: NAD, AOx3, Appears stated age, well-nourished Head: NCAT, no scleral icterus Neck: Supple without LAD Lungs: CTA bilaterally no c/w/r Heart: RRR without murmurs, heaves, thrills or gallops. No S3 or S4 Abdomen: Soft, a little tender over LLQ. +BS Extremities: No clubbing, cyanosis, edema of lower extremities. Skin: Warm moist intact. No lesions noted. Neurologic: No focal deficits Imaging: CT A/P: 04/05/2012 IMPRESSION: 1. Findings felt to represent acute sigmoid diverticulitis with a loculated area of extraluminal bowel gas. Consistent with a contained perforation. 2. Would suggest followup barium enema or endoscopy is posterior appropriate treatment to exclude any underlying lesion. 3. Mild early hepatic steatosis. 4. Appearance of a hiatal hernia some soft tissue prominence at the level of the hernia probably redundant mucosa but upper GI or endoscopy recommended at this level as well. 5. Findings were discussed with the ordering clinician at 1910 hours on date of study. Labs: Lab Results Component Value Date/Time White Blood Cell Count 7.7 04/07/2012 07:08 Red Blood Cell Count 4.16* 04/07/2012 07:08 Hemoglobin 12.8* 04/07/2012 07:08 Hematocrit 37.5* 04/07/2012 07:08 Mean Corpuscular Volume 90.1 04/07/2012 07:08 RDW 13.0 04/07/2012 07:08 Platelet Count 193 04/07/2012 07:08 Lab Results Component Value Date/Time Creatinine Serum 1.1 04/06/2012 07:09 Lab Glucose 113* 04/05/2012 23:09 Bicarbonate 25 04/05/2012 23:09 Chloride 107 04/05/2012 23:09 Potassium 3.8 04/06/2012 07:09 Sodium 139 04/06/2012 07:09 Blood Urea Nitrogen 13 04/05/2012 23:09 Calcium 8.9 04/05/2012 23:09 Est GFR Am >60 04/06/2012 07:09 Est GFR Non-Afr Am >60 04/06/2012 07:09 Lab Results Component Value Date/Time INR 1.0 01/07/1999 13:47 ASSESSMENT: 1) Diverticulitis of colon with perforation, started on full liquids late this afternoon. 2) Diarrhea: check C diff. Likely ABX side effect and diverticulitis related but will check 3) Normocytic normochromic anemia: dilutional 4) Asthma - not currently wheezing PLAN: 1) Check C diff 2) Advance diet slowly 3) DVT prophylaxis: patient ambulatory Dispo: Check C diff. Monitor overnight with his advanced diet. If doing well, will DC tomorrow AM. tt: 36 min tc: 20 min Danisha Moody D.O. Internal Medicine Hospitalist Service Anabela Corona RN - 04/07/2012 3:23 PM CDT Update: Pt tolerating clear liquids mid-day. Will continue to assess. Anabela Dhaliwal RN 3:23 PM 04/07/2012 Yaya Arreaga MD - 04/07/2012 10:34 AM CDT no issues overnight. Pain continues to improve. Reports minimal to no pain medication yesterday and overnight. one subjective fever where temp found to be low grade. Denies any nausea, vomiting, chest pian, lightheadedness, dizziness, blurry vision. having diarrhea. BP 117/81 Pulse 67 Temp(Src) 37.1 ??C (98.8 ??F) (Oral) Resp 16 Ht 1.854 m (6' 1) Wt 99.25 kg (218 lb 12.9 oz) BMI 28.87 kg/m2 SpO2 98% Intake/Output Summary (Last 24 hours) at 04/07/12 0602 Last data filed at 04/06/12 1756 Gross per 24 hour Intake 880 ml Output 1875 ml Net -995 ml alert and pat NAD, lying in bed nonlabored breathing soft, nondistended, minimal tenderness (less than yesterday) RLQ - nontender with percussion Lab Results Component Value Date/Time White Blood Cell Count 7.7 04/07/2012 07:08 Red Blood Cell Count 4.16* 04/07/2012 07:08 Hemoglobin 12.8* 04/07/2012 07:08 Hematocrit 37.5* 04/07/2012 07:08 Mean Corpuscular Volume 90.1 04/07/2012 07:08 RDW 13.0 04/07/2012 07:08 Platelet Count 193 04/07/2012 07:08 Lab Results Component Value Date/Time Creatinine Serum 1.1 04/06/2012 07:09 Lab Glucose 113* 04/05/2012 23:09 Bicarbonate 25 04/05/2012 23:09 Chloride 107 04/05/2012 23:09 Potassium 3.8 04/06/2012 07:09 Sodium 139 04/06/2012 07:09 Blood Urea Nitrogen 13 04/05/2012 23:09 Calcium 8.9 04/05/2012 23:09 Est GFR Am >60 04/06/2012 07:09 Est GFR Non-Afr Am >60 04/06/2012 07:09 perforated diverticulitis continue zosyn monitor WBC Ok to try clear liquids as tolerated today monitor clinically will continue to follow with you STAFF As above. Patient seen/examined. Feels better still. Minimal pain. Hungry Abdomen soft, very mild tenderness in LLQ WBC 7k Will start clears and advance slowly Yaya Ose, MD Radha Ordoñez MD - 04/06/2012 11:57 AM CDT DAILY PROGRESS NOTE Admit Date: 04/05/2012 SUBJECTIVE: Chart reviewed. Feeling much better Minimal abd pain No fevers or chills. Review of Systems No CP, SOB, LLEE edema. OBJECTIVE: Filed Vitals: 04/05/12 2144 04/05/12 2345 04/06/12 0600 04/06/12 0829 BP: 132/69 128/66 122/68 Pulse: 75 70 77 Temp: 37.4 ??C (99.3 ??F) 37.4 ??C (99.3 ??F) 38.1 ??C (100.6 ??F) 37.7 ??C (99.9 ??F) TempSrc: Oral Oral Oral Resp: 16 14 16 Height: 1.854 m (6' 1) Weight: 99.25 kg (218 lb 12.9 oz) SpO2: 95% 95% 95% I/O last 3 completed shifts: In: 646 [I.V.:646] Out: 750 [Urine:750] GENERAL: Young M in NAD. HEENT: MMM, no Op lesions ABD: Soft, ND, mild LLQ abd pain, nl BS. NEURO: AOx 3. LAWS with no focal signs. LABS: CBC last 24 hrs: Lab Results Component Value Date/Time White Blood Cell Count 11.8* 04/06/2012 07:09 Red Blood Cell Count 4.59 04/05/2012 23:09 Hemoglobin 14.1 04/06/2012 07:09 Hematocrit 40.2 04/05/2012 23:09 Mean Corpuscular Volume 87.6 04/05/2012 23:09 RDW 12.8 04/05/2012 23:09 Platelet Count 192 04/05/2012 23:09 BMP last 24 hrs: Lab Results Component Value Date/Time Creatinine Serum 1.1 04/06/2012 07:09 Lab Glucose 113* 04/05/2012 23:09 Bicarbonate 25 04/05/2012 23:09 Chloride 107 04/05/2012 23:09 Potassium 3.8 04/06/2012 07:09 Sodium 139 04/06/2012 07:09 Blood Urea Nitrogen 13 04/05/2012 23:09 Calcium 8.9 04/05/2012 23:09 Est GFR Am >60 04/06/2012 07:09 Est GFR Non-Afr Am >60 04/06/2012 07:09 IMAGING: Reviewed in [facility] ASSESSMENT/PLAN: Hayden Mckay is a 41 y.o. male admitted on 04/05/2012 with abd pain found to have acute diverticulitis with perforation. *Diverticulitis of colon with perforation Improving. Surgery following Continue NPO Continue atbs Asthma NOS Noted. No current issues. DVT prophylaxis: ambulating. Discussed with patient DISPO: TBD TT 26 ''/ CT 15 '' counseling patient regarding medications, test results and plan. Radha Frank MD [facility] David Nolan MD - 04/06/2012 8:03 AM CDT did well overnight. Denies any fever, chills, nausea, vomiting, chest pain, difficulty breathing. pain continues improved. pain medication once prior to sleep. slept well 6 hours. BP 128/66 Pulse 70 Temp 38.1 ??C (100.6 ??F) Resp 14 Ht 1.854 m (6' 1) Wt 99.25 kg (218 lb 12.9 oz) BMI 28.87 kg/m2 SpO2 95% Intake/Output Summary (Last 24 hours) at 04/06/12 0607 Last data filed at 04/06/12 0600 Gross per 24 hour Intake 646 ml Output 0 ml Net 646 ml alert and pat NAD, lying in bed nonlabored breathing soft, some distention, some tenderness LLQ Lab Results Component Value Date/Time White Blood Cell Count 11.8* 04/06/2012 07:09 Red Blood Cell Count 4.59 04/05/2012 23:09 Hemoglobin 14.1 04/06/2012 07:09 Hematocrit 40.2 04/05/2012 23:09 Mean Corpuscular Volume 87.6 04/05/2012 23:09 RDW 12.8 04/05/2012 23:09 Platelet Count 192 04/05/2012 23:09 Lab Results Component Value Date/Time Creatinine Serum 1.0 04/05/2012 23:09 Lab Glucose 113* 04/05/2012 23:09 Bicarbonate 25 04/05/2012 23:09 Chloride 107 04/05/2012 23:09 Potassium 3.7 04/05/2012 23:09 Sodium 140 04/05/2012 23:09 Blood Urea Nitrogen 13 04/05/2012 23:09 Calcium 8.9 04/05/2012 23:09 Est GFR Am >60 04/05/2012 23:09 Est GFR Non-Afr Am >60 04/05/2012 23:09 perforated diverticulitis Agree with IV abx - zosyn monitor WBC NPO with IVF monitor clinically will continue to follow with you Ose, Yaya Esquivel MD - 04/06/2012 7:20 AM CDT DAILY SURGICAL PROGRESS NOTE Admit Date: 04/05/2012 SUBJECTIVE: Feels better! Less pain. No chills Slept OK OBJECTIVE: Vitals: Vital Signs Temp: 100.6 ??F (38.1 ??C), Pulse: 70 , Resp: 14 , SpO2: 95 %, BP: 128/66 mmHg, Flow (L/min): 0 , Oxygen Therapy Device: room air Body mass index is 28.87 kg/(m^2). I/O last 3 completed shifts: In: 646 [I.V.:646] Out: 750 [Urine:750] EXAM: Awake, alert Abdomen is soft, tender in LLQ Imaging: none Labs: All labs last 24 hrs: Recent Results (from the past 24 hour(s)) LAB COMPLETE BLOOD COUNT W/DIFF Collection Time 04/05/12 5:35 PM Component Value Range ??? White Blood Cell Count 14.3 (*) 3.8-11.0 (k/cmm) ??? Red Blood Cell Count 4.91 4.20-5.90 (m/cmm) ??? Hemoglobin 15.3 13.4-17.5 (g/dL) ??? Hematocrit 44.3 39.0-51.0 (%) ??? Mean Corpuscular Volume 90.1 80.0-100.0 (fL) ??? RDW 12.4 11.0-15.0 (%) ??? Platelet Count 207 140-450 (k/cmm) N/O LAB DIFFERENTIAL Collection Time 04/05/12 5:35 PM Component Value Range ??? Absolute Neutrophils 12.4 (*) 1.8-8.0 (k/cmm) ??? Absolute Lymphocytes 0.7 (*) 1.1-4.0 (k/cmm) ??? Absolute Monocytes 1.0 (*) 0.2-0.8 (k/cmm) ??? Absolute Eosinophils 0.0 0.0-0.5 (k/cmm) ??? Absolute Basophils 0.1 0.0-0.2 (k/cmm) LAB BASIC METABOLIC PANEL Collection Time 04/05/12 5:40 PM Component Value Range ??? Creatinine Serum 1.1 0.4-1.3 (mg/dL) ??? Lab Glucose 123 (*) 60-100 (mg/dL) ??? Bicarbonate 28 23-33 (mmol/L) ??? Chloride 101 98-110 (mEq/L) ??? Potassium 3.8 3.5-5.2 (mEq/L) ??? Sodium 137 137-147 (mEq/L) ??? Blood Urea Nitrogen 15 5-26 (mg/dL) ??? Calcium 9.4 8.5-10.5 (mg/dL) ? ? Est GFR Am >60 >60 (mL/min/1.73m2) ? ? Est GFR Non-Afr Am >60 >60 (mL/min/1.73m2) N/O LAB ANION GAP Collection Time 04/05/12 5:40 PM Component Value Range ??? ANION GAP 8 8-16 (mEq/L) LAB COMPLETE BLOOD COUNT W/DIFF Collection Time 04/05/12 11:09 PM Component Value Range ??? White Blood Cell Count 13.2 (*) 3.8-11.0 (k/cmm) ??? Red Blood Cell Count 4.59 4.20-5.90 (m/cmm) ??? Hemoglobin 14.1 13.4-17.5 (g/dL) ??? Hematocrit 40.2 39.0-51.0 (%) ??? Mean Corpuscular Volume 87.6 80.0-100.0 (fL) ??? RDW 12.8 11.0-15.0 (%) ??? Platelet Count 192 140-450 (k/cmm) LAB BASIC METABOLIC PANEL Collection Time 04/05/12 11:09 PM Component Value Range ??? Creatinine Serum 1.0 0.4-1.3 (mg/dL) ??? Lab Glucose 113 (*) 60-100 (mg/dL) ??? Bicarbonate 25 23-33 (mmol/L) ??? Chloride 107 98-110 (mEq/L) ??? Potassium 3.7 3.5-5.2 (mEq/L) ??? Sodium 140 137-147 (mEq/L) ??? Blood Urea Nitrogen 13 5-26 (mg/dL) ??? Calcium 8.9 8.5-10.5 (mg/dL) ? ? Est GFR Am >60 >60 (mL/min/1.73m2) ? ? Est GFR Non-Afr Am >60 >60 (mL/min/1.73m2) LAB HEPATIC FUNCTION PANEL Collection Time 04/05/12 11:09 PM Component Value Range ??? Alk Phos 62 25-135 (U/L) ??? Bilirubin Total 2.7 (*) 0.2-1.2 (mg/dL) ??? Bilirubin, Direct 0.8 (*) 0.0-0.4 (mg/dL) ??? Protein Total, Serum 6.9 5.7-8.3 (g/dL) ??? Albumin 4.1 3.4-5.0 (g/dL) ??? Aspartate Aminotransferase 15 0-45 (U/L) ??? Alanine Aminotransferase 21 4-55 (U/L) N/O LAB ANION GAP Collection Time 04/05/12 11:09 PM Component Value Range ??? ANION GAP 8 8-16 (mEq/L) N/O LAB DIFFERENTIAL Collection Time 04/05/12 11:09 PM Component Value Range ??? Absolute Neutrophils 11.2 (*) 1.8-8.0 (k/cmm) ??? Absolute Lymphocytes 1.2 1.1-4.0 (k/cmm) ??? Absolute Monocytes 0.8 0.2-0.8 (k/cmm) ??? Absolute Eosinophils 0.0 0.0-0.5 (k/cmm) ??? Absolute Basophils 0.0 0.0-0.2 (k/cmm) ??? RBC Morphology Normal ??? Platelet Estimate Normal ASSESSMENT/PLAN: leave NPO with IVF today Continue IV antibiotics Yaya Arreaga MD Viv Medina RN - 04/05/2012 10:02 PM CDT ADMIT O: Admitted patient via wheelchair from Urgent Care to bed # [id number]. D: Patient is oriented x 4; family present. See Admission Assessments. A: Discussed plan of care. See education record for admission education. Oriented to room. Call light in reach. Bed alarm: off R: Patient status: Denies pain at present time. Will monitor. documented in this encounter Consult Notes Yaya Arreaga MD - 04/06/2012 6:39 AM CDT Surgical consult Primary provider: YOHANA Seth SUBJECTIVE: Patient is a 41 y.o. male who presents with abdominal pain for 1.5 days. Started yesterday about 2 PM in LLQ and worsened. Also tired and achy. Fever up to 103. Pain worsened with bumps in car. Last BMwas yesterday. no blood. Presented to UC today and CT showed perforated diverticulitis. Given some abx in UC. He reports pain is improved now but did get some morphine. denies any other symptoms including nausea, vomiting, chest pain, lightheadedness ,dizziness, blurryvision, numbness, tingling or other issues. Patient Active Problem List Diagnoses Date Noted ??? Diverticulitis of colon with perforation [562.11Q] 04/05/2012 ??? Asthma NOS [493.90] 02/23/2003 Class: Chronic ??? Gastroesophageal Reflux Disease [530.81] 02/23/2003 Class: Chronic ??? Rhinitis Allergic NOS [477.9] 02/23/2003 Class: Chronic Past Medical History Diagnosis Date ??? Asthma NOS 02/23/2003 ??? Gastroesophageal Reflux Disease 02/23/2003 ??? Rhinitis Allergic NOS 02/23/2003 ??? Diverticulitis of colon with perforation 04/05/2012 PSH fundoplication x 2 did have some type of GI bleed where transfused 4 units after he explained something wore through the surgical site - no problems since. 5 sinus surgeries uvula removal Allergies Allergen Reactions ??? Levofloxacin LW Reaction: internal bleeding ??? Prednisone LW Reaction: internal bleeding denies any real allergy History Substance Use Topics ??? Smoking status: Never Smoker ??? Smokeless tobacco: Not on file ??? Alcohol Use: 1.8 oz/week 3 Cans of beer per week reports reallyl about a 12 pack a week no smoking or drugs Family History Problem Relation Age of Onset ??? Cancer Mother ??? High Blood Pressure Mother ??? Depression Father ??? Mental Illness Father ??? Cancer Maternal Aunt ??? Cancer Maternal Uncle ??? Diabetes Maternal Uncle ??? High Blood Pressure Maternal Uncle ??? High Cholesterol Maternal Uncle ??? Kidney Disease Paternal Uncle ??? Cancer Maternal Grandmother ??? Diabetes Paternal Grandmother ??? Heart Disease Paternal Grandmother ??? High Blood Pressure Paternal Grandmother ??? Arthritis Paternal Grandfather ??? Diabetes Paternal Grandfather ??? High Blood Pressure Paternal Grandfather ??? Substance Abuse Paternal Grandfather (Done while patient in hospital bed) Medications prior to admission Medication Sig Dispense Refill ??? albuterol (VENTOLIN HFA) 90 mcg/Actuation inhaler Inhale 2 puffs every 4 hours as needed. HOLD rx on file until pt. requests refill. 1 Inhaler 4 ??? fluticasone (FLONASE) 50 mcg/Actuation nasal spray Place 2 sprays into each nostril daily (every24 hours). Dose is for each nostril. Indications: ALLERGIC RHINITIS 16 g 11 ??? fluticasone-salmeterol (ADVAIR DISKUS) 250-50 mcg/dose diskus inhaler Inhale 1 puff 2 times daily. Needs appt before further refills. 1 Inhaler 11 \OBJECTIVE: Vitals: Vital Signs Temp: 37.4 ??C (99.3 ??F), Pulse: 75 , Resp: 16 , SpO2: 95 %, BP: 132/69 mmHg, Flow (L/min): 0 , Oxygen Therapy Device: room air Height: 185.4 cm (6' 1), Weight: 99.25 kg (218 lb 12.9 oz) Body mass index is 28.87 kg/(m^2). alert and pat NAD, lying in bed comfortably RRR CTA Soft, some distention, tender to palpation LLQ without tenderness to percussion CN 2-12 intact strength and sensation grossly intact throughout Lab Results Component Value Date/Time White Blood Cell Count 13.2* 04/05/2012 23:09 Red Blood Cell Count 4.59 04/05/2012 23:09 Hemoglobin 14.1 04/05/2012 23:09 Hematocrit 40.2 04/05/2012 23:09 Mean Corpuscular Volume 87.6 04/05/2012 23:09 RDW 12.8 04/05/2012 23:09 Platelet Count 192 04/05/2012 23:09 Lab Results Component Value Date/Time Creatinine Serum 1.0 04/05/2012 23:09 Lab Glucose 113* 04/05/2012 23:09 Bicarbonate 25 04/05/2012 23:09 Chloride 107 04/05/2012 23:09 Potassium 3.7 04/05/2012 23:09 Sodium 140 04/05/2012 23:09 Blood Urea Nitrogen 13 04/05/2012 23:09 Calcium 8.9 04/05/2012 23:09 Est GFR Am >60 04/05/2012 23:09 Est GFR Non-Afr Am >60 04/05/2012 23:09 Lab Results Component Value Date/Time Alk Phos 62 04/05/2012 23:09 Bilirubin Total 2.7* 04/05/2012 23:09 Bilirubin, Direct 0.8* 04/05/2012 23:09 Protein Total, Serum 6.9 04/05/2012 23:09 Albumin 4.1 04/05/2012 23:09 Aspartate Aminotransferase 15 04/05/2012 23:09 Alanine Aminotransferase 21 04/05/2012 23:09 CT 1. Findings felt to represent acute sigmoid diverticulitis with a loculated area of extraluminal bowel gas. Consistent with a contained perforation. 2. Would suggest followup barium enema or endoscopy is posterior appropriate treatment to exclude any underlying lesion. 3. Mild early hepatic steatosis. 4. Appearance of a hiatal hernia some soft tissue prominence at the level of the hernia probably redundant mucosa but upper GI or endoscopy recommended at this level as well. 5. Findings were discussed with the ordering clinician at 1910 hours on date of study. ASSESSMENT/PLAN: perforated diverticulitis Agree with IV abx - zosyn monitor WBC NPO with IVF monitor clinically - possible follow up CT to assess for any abscess formation and possible drainage will continue to follow with you Seen and discussed with Dr. Arreaga, staff STAFF As above. Patient seen/examined. As above. 41 yo o/w healthy male admitted with diverticulitis, possibly with small contained perforation. Tender in LLQ WBC 14k Will treat with IV antibiotics and bowel rest. Serial exams Hopefully will not need surgery acutely Yaya Arreaga MD documented in this encounter OR Notes H&P - Tacos Manzo MD - 04/05/2012 10:39 PM CDT HISTORY AND PHYSICAL Primary provider: YOHANA Seth Refering provider: No ref. provider found SUBJECTIVE: Patient is a 41 y.o. Non- male who presents with diverticulitis with perforation. Onset of symptoms was gradual 1 day ago with rapidly worsening course since that time. The pain is located Leftlower quadrant. Patient describes the pain as continuous and rated as severe. Pain has been associated with Nausea fevere malaise. Patient denies vomiting blood in teo. Symptoms are aggravated by Movement. Symptoms improve with rest tylenol Pt is s/p rachid fundoplication.and upper GI bleed in the past. Patient Active Problem List Diagnoses Date Noted ??? Diverticulitis of colon with perforation [562.11Q] 04/05/2012 ??? Asthma NOS [493.90] 02/23/2003 Class: Chronic ??? Gastroesophageal Reflux Disease [530.81] 02/23/2003 Class: Chronic ??? Rhinitis Allergic NOS [477.9] 02/23/2003 Class: Chronic Past Medical History Diagnosis Date ??? Asthma NOS 02/23/2003 ??? Gastroesophageal Reflux Disease 02/23/2003 ??? Rhinitis Allergic NOS 02/23/2003 ??? Diverticulitis of colon with perforation 04/05/2012 History reviewed. No pertinent past surgical history. Allergies Allergen Reactions ??? Levofloxacin LW Reaction: internal bleeding ??? Prednisone LW Reaction: internal bleeding History Substance Use Topics ??? Smoking status: Never Smoker ??? Smokeless tobacco: Not on file ??? Alcohol Use: 1.8 oz/week 3 Cans of beer per week Family History Problem Relation Age of Onset ??? Cancer Mother ??? High Blood Pressure Mother ??? Depression Father ??? Mental Illness Father ??? Cancer Maternal Aunt ??? Cancer Maternal Uncle ??? Diabetes Maternal Uncle ??? High Blood Pressure Maternal Uncle ??? High Cholesterol Maternal Uncle ??? Kidney Disease Paternal Uncle ??? Cancer Maternal Grandmother ??? Diabetes Paternal Grandmother ??? Heart Disease Paternal Grandmother ??? High Blood Pressure Paternal Grandmother ??? Arthritis Paternal Grandfather ??? Diabetes Paternal Grandfather ??? High Blood Pressure Paternal Grandfather ??? Substance Abuse Paternal Grandfather (Done while patient in hospital bed) Medications prior to admission Medication Sig Dispense Refill ??? albuterol (VENTOLIN HFA) 90 mcg/Actuation inhaler Inhale 2 puffs every 4 hours as needed. HOLD rx on file until pt. requests refill. 1 Inhaler 4 ??? fluticasone (FLONASE) 50 mcg/Actuation nasal spray Place 2 sprays into each nostril daily (every24 hours). Dose is for each nostril. Indications: ALLERGIC RHINITIS 16 g 11 ??? fluticasone-salmeterol (ADVAIR DISKUS) 250-50 mcg/dose diskus inhaler Inhale 1 puff 2 times daily. Needs appt before further refills. 1 Inhaler 11 Review of Systems Pertinent items are noted in HPI. OBJECTIVE: Vitals: Vital Signs Temp: 37.4 ??C (99.3 ??F), Pulse: 75 , Resp: 16 , SpO2: 95 %, BP: 132/69 mmHg, Flow (L/min): 0 , Oxygen Therapy Device: room air Height: 185.4 cm (6' 1), Weight: 99.25 kg (218 lb 12.9 oz) Body mass index is 28.87 kg/(m^2). BP 132/69 Pulse 75 Temp(Src) 37.4 ??C (99.3 ??F) (Oral) Resp 16 Ht 1.854 m (6' 1) Wt 99.25 kg (218 lb 12.9 oz) BMI 28.87 kg/m2 SpO2 95% General appearance: fatigued, severe distress, appears stated age, mildly obese Eyes: conjunctivae/corneas clear. PERRL, EOM's intact. Fundi benign Neck: supple, symmetrical, trachea midline, no adenopathy, thyroid: not enlarged, symmetric, no tenderness/mass/nodules, no carotid bruit and no JVD Lungs: clear to auscultation bilaterally Heart: regular rate and rhythm, S1, S2 normal, no murmur, click, rub or gallop Abdomen: abnormal findings: distended, tenderness marked, guarding and rebound present in the LLQ, hypoactive bowel sounds, Neurologic: Alert and oriented X 3, normal strength and tone. Normal symmetric reflexes. Normal coordination and gait ECG: . Imaging: CT: IMPRESSION: 1. Findings felt to represent acute sigmoid diverticulitis with a loculated area of extraluminal bowel gas. Consistent with a contained perforation. 2. Would suggest followup barium enema or endoscopy is posterior appropriate treatment to exclude any underlying lesion. 3. Mild early hepatic steatosis. 4. Appearance of a hiatal hernia some soft tissue prominence at the level of the hernia probably redundant mucosa but upper GI or endoscopy recommended at this level as well. Labs: All labs last 24 hrs: Recent Results (from the past 24 hour(s)) LAB COMPLETE BLOOD COUNT W/DIFF Collection Time 04/05/12 5:35 PM Component Value Range ??? White Blood Cell Count 14.3 (*) 3.8-11.0 (k/cmm) ??? Red Blood Cell Count 4.91 4.20-5.90 (m/cmm) ??? Hemoglobin 15.3 13.4-17.5 (g/dL) ??? Hematocrit 44.3 39.0-51.0 (%) ??? Mean Corpuscular Volume 90.1 80.0-100.0 (fL) ??? RDW 12.4 11.0-15.0 (%) ??? Platelet Count 207 140-450 (k/cmm) N/O LAB DIFFERENTIAL Collection Time 04/05/12 5:35 PM Component Value Range ??? Absolute Neutrophils 12.4 (*) 1.8-8.0 (k/cmm) ??? Absolute Lymphocytes 0.7 (*) 1.1-4.0 (k/cmm) ??? Absolute Monocytes 1.0 (*) 0.2-0.8 (k/cmm) ??? Absolute Eosinophils 0.0 0.0-0.5 (k/cmm) ??? Absolute Basophils 0.1 0.0-0.2 (k/cmm) LAB BASIC METABOLIC PANEL Collection Time 04/05/12 5:40 PM Component Value Range ??? Creatinine Serum 1.1 0.4-1.3 (mg/dL) ??? Lab Glucose 123 (*) 60-100 (mg/dL) ??? Bicarbonate 28 23-33 (mmol/L) ??? Chloride 101 98-110 (mEq/L) ??? Potassium 3.8 3.5-5.2 (mEq/L) ??? Sodium 137 137-147 (mEq/L) ??? Blood Urea Nitrogen 15 5-26 (mg/dL) ??? Calcium 9.4 8.5-10.5 (mg/dL) ? ? Est GFR Am >60 >60 (mL/min/1.73m2) ? ? Est GFR Non-Afr Am >60 >60 (mL/min/1.73m2) N/O LAB ANION GAP Collection Time 04/05/12 5:40 PM Component Value Range ??? ANION GAP 8 8-16 (mEq/L) ASSESSMENT/PLAN: Patient Active Hospital Problem List: Diverticulitis of colon with perforation (04/05/2012) Assessment: Pt moderately ill but stable. Plan: IV fluids antibiotics NPO. see remaining orders Surgery advised and will see. documented in this encounter Miscellaneous Notes Medication History - Mohsen Diaz MD - 04/08/2012 3:55 PM CDT INPATIENT MEDS Encounter Date: 04/05/12 amoxicillin-clavulanate (AUGMENTIN) 875-125 mg per tablet Start Date:04/08/12, End Date:04/13/12, Frequency:2 TIMES DAILY *No Administrations Recorded naproxen (EC NAPROSYN) 500 mg EC tablet Start Date:04/08/12, End Date:04/22/12, Frequency:DAILY WITH BREAKFAST *No Administrations Recorded 0.9% sodium chloride latex free syringe Start Date:04/08/12, End Date:04/08/12, Frequency:- Taken Dose Action User Route Site Recorded Comment Reason 04/08/12 0800 - Not Given Yolanda Diaz RN - - 04/08/12 1220 - Other acetaminophen (TYLENOL) tablet 650 mg Start Date:04/06/12, End Date:04/08/12, Frequency:EVERY 6 HOURS PRN Taken Dose Action User Route Site Recorded Comment Reason 04/08/12 0757 650 mg Given Yolanda Diaz RN Oral - 04/08/12 075 - - 04/06/122041 650 mg Given Frankie Resendiz RN Oral - 04/06/122042 - - albuterol (PROVENTIL HFA, VENTOLIN HFA) 90 mcg/actuation inhaler 2 puff Start Date:04/05/12, End Date:04/08/12, Frequency:EVERY 4 HOURS PRN *No Administrations Recorded fluticasone-salmeterol (ADVAIR) 250-50 mcg/dose diskus inhaler 1 puff Start Date:04/05/12, End Date:04/08/12, Frequency:2 TIMES DAILY Taken Dose Action User Route Site Recorded Comment Reason 04/08/12 0759 1 puff Given Yolanda Diaz RN Inhalation - 04/08/12 0759 - - 04/07/121944 1 puff Given Mounika Myers RN Inhalation - 04/07/121944 - - 04/07/12 0845 1 puff Given Anabela Dhaliwal RN Inhalation - 04/07/12 0845 - - 04/06/122030 1 puff Given Frankie Resendiz RN Inhalation - 04/06/122030 - - 04/06/12 0802 1 puff Given Hemalatha Huntley RN Inhalation - 04/06/12 0802 - - 04/05/12 2337 1 puff Given Viv Medina RN Inhalation - 04/05/12 2337 - - 04/05/12 2245 1 puff Not Given Viv Medina RN Inhalation - 04/05/12 2234 - Patient/family refused 5% dextrose and 0.9% sodium chloride with KCL 20 mEq infusion Start Date:04/05/12, End Date:04/08/12, Frequency:CONTINUOUS Taken Dose Action User Route Site Recorded Comment Reason 04/07/12 2109 100 mL/hr New Bag Started Mounika Myers RN Intravenous - 04/07/12 2111 - - 04/07/12 0927 100 mL/hr New Bag Started Shahana Jara RN Intravenous - 04/07/12 0929 - - 04/07/12 0926 0 Infused Shahana Jara RN Intravenous - 04/07/12 0930 - - 04/06/12 2135 100 mL/hr Started Frankie Resendiz RN Intravenous - 04/06/12 2135 - - 04/06/12 1019 100 mL/hr New Bag Started Hemalatha Huntley RN Intravenous - 04/06/12 1020 - - 04/06/12 0000 0 Infused Anahi Catherine RN Intravenous - 04/06/12 0117 - - 04/05/12 2331 100 mL/hr Started Viv Medina RN Intravenous - 04/05/12 2331 - - piperacillin-tazobactam (ZOSYN) 3.375 g in 5% dextrose 50 mL IVPB Start Date:04/05/12, End Date:04/08/12, Frequency:EVERY 6 HOURS Taken Dose Action User Route Site Recorded Comment Reason 04/08/12 1216 3.375 g Given Yolanda Diaz RN Intravenous - 04/08/12 1216 - - 04/08/12 0631 3.375 g Given Mounika Myers RN Intravenous - 04/08/12 0631 - - 04/07/12 2354 3.375 g Given Mounika Myers RN Intravenous - 04/07/12 2355 - - 04/07/12 1815 3.375 g Infused Celena Willams RN Intravenous - 04/07/12 1839 - - 04/07/12 1746 3.375 g Started Celena Willams, NICOLE Intravenous - 04/07/12 1746 - - 04/07/12 1308 3.375 g Given Anabela Dhaliwal, NICOLE Intravenous - 04/07/12 1308 - - 04/07/12 0646 3.375 g Given Frankie Resendiz, NICOLE Intravenous - 04/07/12 0646 - - 04/06/12 2331 3.375 g Given Frankie Resendiz RN Intravenous - 04/06/12 2332 - - 04/06/12 1825 3.375 g Infused Hemalatha G NICOLE Huntley Intravenous - 04/06/12 1814 - - 04/06/12 1755 3.375 g Started Hemalatha G NICOLE Huntley Intravenous - 04/06/12 1755 - - 04/06/12 1300 3.375 g Infused Hemalatha G NICOLE Huntley Intravenous - 04/06/12 1230 - - 04/06/12 1229 3.375 g Started Hemalatha Huntley RN Intravenous - 04/06/12 1230 - - 04/06/12 0635 3.375 g Infused Anahi Catherine RN Intravenous - 04/06/12 0658 - - 04/06/12 0604 3.375 g Started Anahi Catherine RN Intravenous - 04/06/12 0604 - - 04/05/12 2335 3.375 g Started Viv Medina RN Intravenous - 04/05/12 2335 - - temazepam (RESTORIL) capsule 15 mg Start Date:04/05/12, End Date:04/08/12, Frequency:AT BEDTIME PRN Taken Dose Action User Route Site Recorded Comment Reason 04/06/12 0040 15 mg Given Anahi Catherine RN Oral - 04/06/12 0040 - - ondansetron (ZOFRAN) injection 4 mg Start Date:04/05/12, End Date:04/08/12, Frequency:EVERY 6 HOURS PRN *No Administrations Recorded omeprazole (PriLOSEC) capsule 20 mg Start Date:04/06/12, End Date:04/08/12, Frequency:DAILY Taken Dose Action User Route Site Recorded Comment Reason 04/08/12 0630 20 mg Given Mounika Myers RN Oral - 04/08/12 0631 - - 04/07/12 0646 20 mg Given Frankie Resendiz RN Oral - 04/07/12 0646 - - 04/06/12 0700 20 mg Not Given Anahi Catherine RN Oral - 04/06/12 0657 pt NPO Order parameters not met HYDROmorphone (DILAUDID) injection 0.3-0.6 mg Start Date:04/05/12, End Date:04/08/12, Frequency:EVERY 2 HOURS PRN Taken Dose Action User Route Site Recorded Comment Reason 04/06/12 0040 0.2 mg Given Anahi Catherine RN Intravenous - 04/06/12 0040 - - documented in this encounter Plan of Treatment Not on filedocumented as of this encounter Procedures Procedure Name Priority Date/Time Associated Comments Diagnosis C.DIFFICILE Routine 04/07/2012 5:52 Results for this TOXIN,MOLECULAR PM CDT procedure ar e in DETECTION the results section. COMPLETE BLOOD Specified Time 04/07/2012 7:08 Results for this COUNT-NO DIFF AM CDT procedure are in the results section. BEDSIDE GLUCOSE Routine 04/06/2012 4:56 Results f or this MONITOR POCT PM CDT procedure are i n the results section. BEDSIDE GLUCOSE Routine 04/06/2012 8:26 Results f or this MONITOR POCT AM CDT procedure are i n the results section. CREATININE / GFR Specified Time 04/06/2012 7:09 Result s for this AM CDT procedure are i n the results section. HEMOGLOBIN, BLOOD Specified Time 04/06/2012 7:09 Resul ts for this AM CDT procedure are i n the results section. WBC, BLOOD Specified Time 04/06/2012 7:09 Results fo r this AM CDT procedure are i n the results section. SODIUM Specified Time 04/06/2012 7:09 Results fo r this AM CDT procedure are i n the results section. POTASSIUM Specified Time 04/06/2012 7:09 Results fo r this AM CDT procedure are i n the results section. ANION GAP Routine 04/05/2012 11:09 Results for this PM CDT procedure are i n the results section. COMPLETE BLOOD Routine 04/05/2012 11:09 Results f or this COUNT-W/DIFF PM CDT procedure are i n the results section. LIVER PANEL(HEPATIC Routine 04/05/2012 11:09 Resu lts for this FUNCTION PANEL) PM CDT procedure ar e in the results section. BASIC METABOLIC Routine 04/05/2012 11:09 Results for this PANEL PM CDT procedure are i n the results section. DIFFERENTIAL Routine 04/05/2012 11:09 Results for this PM CDT procedure are i n the results section. BLOOD CULTURE Specified Time 04/05/2012 11:08 Results for this INCLUDES AEROBIC AND PM CDT procedu re are in ANAEROBIC the results section. documented in this encounter Results C.Difficile Toxin,Molecular Detection (04/07/2012 5:52 PM CDT) [facility] Method Time Signature Clostridium Negative HP CONVERSION difficile PCR Comment: Reference Range: ??Negative Method description (GeneXpert): Rapid, real-time PCR assay to detect tcd B (the Clostridium difficile toxin B gene) in human liquid or soft stools. Specimen Anatomical Collection Method Collection Time Receive d Time (Source) Location / / Volume Laterality Stool: 04/07/2012 5:52 PM 2 5:54 CDT PM CDT Danisha Moody DO LAB_1 Performing Organization Address City/[facility] Code Phon e Number HP CONVERSION (ABNORMAL) Hemogram/Plts (04/07/2012 7:08 AM CDT) [facility] Method Time Signature White Blood Cell 7.7 3.8 - HP CONVERSION Count 11.0 k/cmm Red Blood Cell 4.16 (L) 4.20 - HP CONVERSION Count 5.90 m/cmm Hemoglobin 12.8 (L) 13.4 - HP CONVERSION 17.5 g/dL Hematocrit 37.5 (L) 39.0 - HP CONVERSION 51.0 % Mean Corpuscular 90.1 80.0 - HP CONVERSION Volume 100.0 fL RDW 13.0 11.0 - HP CONVERSION 15.0 % Platelet Count 193 140 - 450 HP CONVERSION k/cmm Specimen Anatomical Collection Method Collection Time Receive d Time (Source) Location / / Volume Laterality 04/07/2012 7:08 AM 2 7:18 CDT AM CDT Radha Frank MD LAB_1 Performing Organization Address City/[facility]/ZIP Code Phon e Number HP CONVERSION BEDSIDE GLUCOSE MONITOR (04/06/2012 4:56 PM CDT) athologist Signature Bedside Blood 114 mg/dL HP CONVERSION Glucose Test Specimen Anatomical Collection Method Collection Time Receive d Time (Source) Location / / Volume Laterality 04/06/2012 4:56 PM 2 8:51 CDT AM CDT Danisha Jinmeet RUVALCABA LAB_[address] [facility] Phon e Number HP CONVERSION BEDSIDE GLUCOSE MONITOR (04/06/2012 8:26 AM CDT) athologist Signature Bedside Blood 134 mg/dL HP CONVERSION Glucose Test Specimen Anatomical Collection Method Collection Time Receive d Time (Source) Location / / Volume Laterality 04/06/2012 8:26 AM 2 CDT 11:45 AM CDT Radha Frank MD LAB_[address] [facility] Phon e Number HP CONVERSION Creatinine / GFR (04/06/2012 7:09 AM CDT) athologist Signature Creatinine 1.1 0.4 - 1.3 HP CONVERSION Serum mg/dL Est GFR >60 >60 HP CONVERSION [...] Time (Source) Location / / Volume Laterality BLOOD: 04/06/2012 7:09 AM 2 7:46 CDT AM CDT Tacos Manzo MD LAB_1 Performing Organization Address City/[facility] Code Phon e Number HP CONVERSION Potassium (04/06/2012 7:09 AM CDT) athologist Signature Potassium 3.8 3.5 - 5.2 HP CONVERSION mEq/L Specimen Anatomical Collection Method Collection Time Receive d Time (Source) Location / / Volume Laterality BLOOD: 04/06/2012 7:09 AM 2 7:46 CDT AM CDT Tacos Manzo MD LAB_1 Performing Organization Address City/[facility] Phon e Number HP CONVERSION Sodium (04/06/2012 7:09 AM CDT) athologist Signature Sodium 139 137 - 147 HP CONVERSION mEq/L Specimen Anatomical Collection Method Collection Time Receive d Time (Source) Location / / Volume Laterality BLOOD: 04/06/2012 7:09 AM 2 7:46 CDT AM CDT Tacos Manzo MD LAB_[address] [facility] Phon e Number HP CONVERSION Hemoglobin, Blood (04/06/2012 7:09 AM CDT) athologist Signature Hemoglobin 14.1 13.4 - 17.5 HP CONVERSION g/dL Specimen Anatomical Collection Method Collection Time Receive d Time (Source) Location / / Volume Laterality BLOOD: 04/06/2012 7:09 AM 2 7:46 CDT AM CDT Tacos Manzo MD LAB_[address] [facility] Phon e Number HP CONVERSION (ABNORMAL) WBC, Blood (04/06/2012 7:09 AM CDT) [facility] Signature White Blood 11.8 (H) 3.8 - 11.0 HP CONVERSION Cell Count k/cmm Specimen Anatomical Collection Method Collection Time Receive d Time (Source) Location / / Volume Laterality BLOOD: 04/06/2012 7:09 AM 2 7:46 CDT AM CDT Tacos Manzo MD LAB_[address] [facility] Phon e Number HP CONVERSION (ABNORMAL) Differential (04/05/2012 11:09 PM CDT) Patholo gist Method Time Signature Absolute 11.2 (H) 1.8 - 8.0 HP CONVERSION Neutrophils k/cmm Absolute 1.2 1.1 - 4.0 HP CONVERSION Lymphocytes k/cmm Absolute 0.8 0.2 - 0.8 HP CONVERSION Monocytes k/cmm Absolute 0.0 0.0 - 0.5 HP CONVERSION Eosinophils k/cmm Absolute 0.0 0.0 - 0.2 HP CONVERSION Basophils k/cmm RBC Morphology Normal HP CONVERSION Platelet Normal HP CONVERSION Estimate Specimen Anatomical Collection Method Collection Time Receive d Time (Source) Location / / Volume Laterality 04/05/2012 11:09 04/05/2012 PM CDT 11:19 PM CDT Tacos Manzo MD LAB_[address] Performing [address] [facility] Phon e Number HP CONVERSION ANION GAP (04/05/2012 11:09 PM CDT) athologist Signature ANION GAP 8 8 - 16 mEq/L HP CONVERSION Specimen Anatomical Collection Method Collection Time Receive d Time (Source) Location / / Volume Laterality 04/05/2012 11:09 04/05/2012 PM CDT 11:19 PM CDT Tacos Manzo MD LAB_[address] [facility] Phon e Number HP CONVERSION (ABNORMAL) Liver Panel(Hepatic Function Panel) (04/05/2012 11:09 PM CDT) [facility] bewarket Method Time Signature Alk Phos 62 25 - 135 HP CONVERSION U/L Bilirubin Total 2.7 (H) 0.2 - 1.2 HP CONVERSION mg/dL Bilirubin, Direct 0.8 (H) 0.0 - 0.4 HP CONVERSIO N mg/dL Protein Total, Serum 6.9 5.7 - 8.3 HP CONVER ROB g/dL Albumin 4.1 3.4 - 5.0 HP CONVERSION g/dL Aspartate 15 0 - 45 HP CONVERSION Aminotransferase U/L Alanine 21 4 - 55 HP CONVERSION Aminotransferase U/L Specimen Anatomical Collection Method Collection Time Receive d Time (Source) Location / / Volume Laterality BLOOD: 04/05/2012 11:09 04/05/2012 PM CDT 11:19 PM CDT Tacos Manzo MD LAB_1 Performing Organization Address [facility] Phon e Number HP CONVERSION (ABNORMAL) Basic Metabolic Panel (04/05/2012 11:09 PM CDT) [facility] bewarket Method Time Signature Creatinine Serum 1.0 0.4 - 1.3 HP CONVERSION mg/dL Lab Glucose 113 (H) 60 - 100 HP CONVERSION mg/dL Bicarbonate 25 23 - 33 HP CONVERSION mmol/L Chloride 107 98 - 110 HP CONVERSION mEq/L Potassium 3.7 3.5 - 5.2 HP CONVERSION mEq/L Sodium 140 137 - 147 HP CONVERSION mEq/L Blood Urea 13 5 - 26 HP CONVERSION Nitrogen mg/dL Calcium 8.9 8.5 - 10.5 HP CONVERSION mg/dL Est [...] Time (Source) Location / / Volume Laterality BLOOD: 04/05/2012 11:09 04/05/2012 PM CDT 11:19 PM CDT Tacos Manzo MD LAB_1 Performing Organization Address [facility] Phon e Number HP CONVERSION (ABNORMAL) Hemogram/Plts/Diff (04/05/2012 11:09 PM CDT) [facility] Method Time Signature White Blood Cell 13.2 (H) 3.8 - HP CONVERSION Count 11.0 k/cmm Red Blood Cell 4.59 4.20 - HP CONVERSION Count 5.90 m/cmm Hemoglobin 14.1 13.4 - HP CONVERSION 17.5 g/dL Hematocrit 40.2 39.0 - HP CONVERSION 51.0 % Mean Corpuscular 87.6 80.0 - HP CONVERSION Volume 100.0 fL RDW 12.8 11.0 - HP CONVERSION 15.0 % Platelet Count 192 140 - 450 HP CONVERSION k/cmm Specimen Anatomical Collection Method Collection Time Receive d Time (Source) Location / / Volume Laterality BLOOD: 04/05/2012 11:09 04/05/2012 PM CDT 11:19 PM CDT Tacos Manzo MD LAB_1 Performing Organization Address [facility] Phon e Number HP CONVERSION Blood Culture includes Aerobic and Anaerobic (04/05/2012 11:08 PM CDT) [facility] Method Time Signature Blood Culture No growth HP CONVERSION after 5 days. Comment: ? ORDERED BY: TACOS MANZO SOURCE: Blood ?COLLECTED: ??04/05/12 23:08 ? PLATED: ? 04/06/12 01:46 Culture Blood, Aerobic ? FINAL ? 04/11/12 02:21 No growth after 5 days. Specimen (Source) Anatomical Collection Method Collection Time Re ceived Time Location / / Volume Laterality BLOOD: 04/05/2012 11:08 PM CDT Tacos Manzo MD LAB_1 Performing Organization Address City/State/ZIP Code Phon e Number HP CONVERSION documented in this encounter Visit Diagnoses Diagnosis Unspecified asthma(493.90) ([facility]) Unspecified asthma documented in this encounter Care Teams Superintendent Pressure Relationship Specialty Start Date End Date Raulito Saez, NETEZZA DEVELOPER, MARINE SERVICE MANAGER PCP - General 12/24/10 09/25/18 documented as of this encounter
--- OUTSIDE RECORDS SUMMARY | 2022-06-18 08:44 | XMS_ITS | Encounter Summary ---
:1970 [address] [facility] Address [address] [place] [address] Care Team Providers Name Role Phone Raulito Saez Yemi LUNDBERG, CHITO Primary Care Provider [phone] Reason for Visit Reason Comments Other Encounter Details Date Type Department Care Team Description 12/28/2010 Telephone [facility] [address]acruz i, OA Other Orthopedics [address] [place], [place] [id number] Social History Tobacco Use Types Packs/Day Years Used Date Smoking Tobacco: Never Assessed Sex Assigned at Date Recorded Not on file documented as of this encounter Progress Notes Yamila Kowalski, RN - 12/28/2010 1:39 PM CDT pt called stating he received a phone call from you after today's appt and needing clarification regarding this, pls call him at . Created on 28Dec2010 1:39pm by YAMILA KOWALSKI On 28Dec2010 1:49pm CONCEPCION MATIAS wrote: Pt was called. Issue resolved. Acknowledged by CONCEPCION MATIAS on 1:49pm documented in this encounter Plan of Treatment Not on filedocumented as of this encounter Visit Diagnoses Not on filedocumented in this encounter Care Teams Director Of Diagnostic Imaging Relationship Specialty Start Date End Date Raulito Saez, ELECTRIC REPAIR SUPERVISOR, VOLLEYBALL COACH PCP - General 12/24/10 09/25/18 documented as of this encounter
--- OUTSIDE RECORDS SUMMARY | 2022-06-18 08:44 | XMS_ITS | Encounter Summary ---
:1970 Author Organization [facility] Address [address], [place] [address] Care Team Providers Name Role Phone Raulito Saez APRN, CNP Primary Care Provider [phone] Reason for Visit Reason Comments Prior Authorization Request Encounter Details Date Type Department Care Team Description 09/10/2011 Telephone [facility] [address] Pri[address] r Authorization Allergy MD Request [address] [facility] [address] [facility] [place] [address] [phone] (Wo rk) Social History Tobacco Use Types Packs/Day Years Used Date Smoking Tobacco: Never Assessed Sex Assigned at Date Recorded Not on file documented as of this encounter Nursing Notes Samaria Lou - 09/23/2011 9:56 AM CST Rx faxed to pharmacy per [facility] okay with warning override. Note complete. KET MAKER Brenda Copeland MD - 09/23/2011 9:49 AM CST OK to override warning. KET MAKER Samaria Lou - 09/15/2011 1:41 PM CST Addendum to previous note: Ok to override prednisone warning that comes up with FLT? Or try alternative nasal steroid spray? He is okay with a diff spray other than Nasacort (non-formulary). Please advise. *NO NEED TO CALL PT BACK. Samaria Lou - 09/15/2011 1:06 PM CST Pt calling back. States that he has tried many other nasal steroid sprays in the past but is willing to try them again. He would like to try FLT. He will try it again for a month or so, then call us back if any problems. Fax in rx for FLT (per SO) to pharmacy today. KET MAKER Tracie Tompkins - 09/15/2011 8:39 AM CST Left second message to call back with what other nasal sprays he has tried. KET MAKER Samaria Lou - 09/14/2011 5:13 PM CST EB, LAUNDRY ASSISTANT: No call back from pt as of today. Please followup. KET MAKER Mirella Serrano - 09/10/2011 4:22 PM CST PJ Left non-detailed message on home voicemail to call back to discuss med. When calls back, pleasefind out if he has tried any other nasal steroid. What is formulary alternative? KET MAKER Flora Pelaez - 09/10/2011 3:43 PM CST PRIOR AUTHORIZATION OR CHANGE MEDICATIONS? Drug Name/Strength: Triamcinolone nasal spray 16.5gm Sig: use 2 sprays in each nostril daily Formulary Alternative: na Insurance Carrier: [phone] documented in this encounter Plan of Treatment Not on filedocumented as of this encounter Visit Diagnoses Not on filedocumented in this encounter Care Teams Laboratory Inspector Relationship Specialty Start Date End Date Raulito Saez, ASSISTANT ASSOCIATE PROFESSOR, FOOD AND BEVERAGE COORDINATOR PCP - General 12/24/10 09/25/18 documented as of this encounter
--- OUTSIDE RECORDS SUMMARY | 2022-06-18 08:44 | XMS_ITS | Encounter Summary ---
:1970 Author Organization [facility] Address [address], [place] [address] Care Team Providers Name Role Phone Raulito Saez Yemi LUNDBERG CNP Primary Care Provider [phone] Reason for Visit Reason Comments Abdominal Pain Encounter Details Date Type Department Care Team Description 03/10/2012 Hospital Encounter [facility] Janice Pearson [place] epigastric pain; Care PA-C [place] [address] [place] [address] [facility] [place] [address] [phone] Social History Tobacco Use Types Packs/Day Years Used Date Smoking Tobacco: Never Assessed Sex Assigned at Date Recorded Not on file documented as of this encounter Last Filed Vital Signs Vital Sign Reading Time Taken Comments Blood Pressure 130/91 03/10/2012 3:05 PM CDT Pulse 82 03/10/2012 3:05 PM CDT Temperature 37.4 ??C (99.3 ??F) 03/10/2012 3:05 PM CDT Respiratory Rate 16 03/10/2012 3:05 PM CDT Oxygen Saturation - - Inhaled [...] file until Unspecified pt. requests refill. asthma(493.90) ([facility]) fluticasone (AKA Place 2 sprays into 16 g 11 09/15/2011 10/17/2012 FLONASE) 50 MCG/ACT each nostril daily nasal solution (every 24 hours). Dose is for each nostril. Indications: ALLERGIC RHINITIS fluticasone-salmeterol Inhale 1 puff 2 times 1 Inhaler 09/23/2012 (AKA ADVAIR DISKUS) daily. Needs appt 250-50 MCG/DOSE diskus before further inhalerIndications: refills. Unspecified asthma(493.90) ([facility]) documented as of this encounter Progress Notes Janice Pearson PA-C - 03/10/2012 4:46 PM CDT Quick Note: Janice Pearson PA-C 4:48 PM 03/10/2012 documented in this encounter ED Notes Janice Pearson PA-C - 03/10/2012 6:56 PM CDT ED Provider Notes signed by Janice Pearson PA-C at 03/27/12958 Author: Janice Pearson PA-C Service: (none) Author Type: Physician Stitcher Standard Machine Filed: 03/27/12 0959 Note Time: 03/10/121855 Status: Signed Back Shoe Cutter: Janice Pearson PA-C (Physician Stitcher Standard Machine) NAME: HAYDEN AMARO MR#: [id number] CSN: [id number] AUTHENTICATING CLINICIAN: Janice Pearson PA-C CONFIRM #: [id number] LOC: 520 URGENT CARE PROGRESS NOTE DATE OF VISIT: 03/10/2012 : 1970 Rgfra-mhz-lbmu-old male presents today for 3 days of feeling gaseous. He has had belching, nauseousness, and a dull epigastric pain. He has been able to eat and drink fine without any real change in any dietary habits. He drinks about on average 2 beers a day. His bowel movements have been normal except for a couple episode where it was a little bit loose. He has had no vomiting. His pain has been tolerable. Patient denies black or tarry stools. His history is significant for a Robert fundoplication in 1997 and then eventually had more of an open surgery for reflux because that one did not work. In 2004 he had an upper GI bleed, which they never found the source, but at the time he was on Levaquin and prednisone, thought maybe it was a medication-related phenomenon. Patient has also been in to the ER within the past year for severe right upper quadrant pain. They thought he had gallstones; although, it did not show on ultrasound, but he has had a couple episodes since then very similar. He said the difference at this time is he has more belching and much, much less pain. PAST MEDICAL HISTORY: Reviewed in Epic. EXAM: VITAL SIGNS: Reviewed in [facility]. He is in no distress. He does not appear uncomfortable. He has mucous membranes moist. LUNGS: Clear. No CVA tenderness. HEART: Regular rate and rhythm. Sharp S1, S2. No murmurs. No chest wall tenderness. ABDOMEN: Soft. Just some very mild epigastric tenderness. No rebound. No guarding. Normal bowel sounds. Bilirubin, AST, ALT, lipase, amylase and a CBC as outlined in Epic were all normal. Blood sugar is 90. Flat and upright x-ray shows intracolonic gas with the small and large intestine, maybe a little bit more than usual but no bowel distention, no free intraperitoneal air and just a mild amount of stool. ASSESSMENT: Dull epigastric pain with associated gassiness. PLAN: Discussed with the patient unclear etiology of symptoms. I would not expect this would be from gallbladder disease given any lack of any significant pain, and also we had given him Maalox in clinic which was not helpful. Does not seem to be like a gastritis. My suspicion is it would not have any relationship to previous surgery. We are going to have him observe his symptoms. He is scheduled to go on vacation. Try some mdbr-aci-knzwsbq simethicone, avoid gaseous forming stools. If symptoms persisting, he needs to have recheck. Of course if he develops more severe pain or increase in symptoms, may need a recheck sooner, but he will otherwise follow up p.r.nSailaja QUICK:NOHEMY C: CONFIRM #: [id number] documented in this encounter Miscellaneous Notes Miscellaneous - 03/10/2012 4:46 PM CDTNotes Recorded by Janice Pearson PA-C on 03/10/2012 at 4:48 PMMarirasheeda Pearson PA-C 4:48 PM 03/10/2012 URT MAKER Medication History - Mohsen Diaz MD - 03/10/2012 4:46 PM CDT INPATIENT MEDS Encounter Date: 03/10/12 aluminum-magnesium hydroxide-simethicone (MAALOX) suspension 20 mL Start Date:03/10/12, End Date:03/10/12, Frequency:EVERY 6 HOURS PRN Taken Dose Action User Route Site Recorded Comment Reason 03/10/12 1553 20 mL Given Ana Rosen RN Oral - 03/10/12 1553 - - documented in this encounter Plan of Treatment Not on filedocumented as of this encounter Procedures Procedure Name Priority Date/Time Associated Comments Diagnosis XR ABD FLAT AND Routine 03/10/2012 4:22 PM Acute epigastric Re sults for this UPRIGHT CDT pain procedure are i n the results section. GLUCOSE, WHOLE BLOOD STAT 03/10/2012 3:57 PM Acute epigastr ic Results for this POCT CDT pain procedure are i n the results section. COMPLETE BLOOD STAT 03/10/2012 3:57 PM Acute epigastric Res ults for this COUNT-W/DIFF CDT pain procedure are i n the results section. DIFFERENTIAL STAT 03/10/2012 3:57 PM Results f or this CDT procedure are i n the results section. AMYLASE STAT 03/10/2012 3:57 PM Acute epigastric Resul ts for this CDT pain procedure are i n the results section. LIPASE STAT 03/10/2012 3:57 PM Acute epigastric Resul ts for this CDT pain procedure are i n the results section. ALT (SGPT) STAT 03/10/2012 3:57 PM Acute epigastric Resul ts for this CDT pain procedure are i n the results section. AST STAT 03/10/2012 3:57 PM Acute epigastric Resul ts for this CDT pain procedure are i n the results section. BILIRUBIN, TOTAL STAT 03/10/2012 3:57 PM Acute epigastric R esults for this CDT pain procedure are i n the results section. documented in this encounter Results XR Abd Flat And Upright (03/10/2012 4:22 PM CDT) Anatomical Region Laterality Modality Abdomen Other Specimen (Source) Anatomical Location Collection Method / Collectio n Time Received Time / Laterality Volume Impressions 03/10/2012 4:31 PM CDT IMPRESSION: There is no definite intraperitoneal free air or air-fluid levels on the upright view. ?? There is gas in nondistended loops of both large and small bowel. ??B owel gas pattern is nonspecific but not overtly obstructed. ??Stool is scattered throughout the colon. Narrative 03/10/2012 4:31 PM CDT COMPARISON: None. Procedure Note Ana Maria Armendariz MD - 03/06/2016Formattin g of this note might be different from the original. COMPARISON: None. IMPRESSION IMPRESSION: There is no definite intrape ritoneal free air or air-fluid levels on the upright view. Th ere is gas in nondistended loops of both large and small bowel. [place] el gas pattern is nonspecific but not overtly obstructed. Stool is scattered throughout the colon. Transcriptions Ana Maria Armendariz MD - 03/10/2012 4:46 PM CDTNotes Recorded by Janice Pearson PA-C on 03/10/2012 at 4:48 PMMarirasheeda Pearson PA-C 4:48 PM 03/10/2012 Janice Pearson PA-C RAD GD Differential (03/10/2012 3:57 PM CDT) P athologist Signature Absolute 3.7 1.8 - 8.0 HP CONVERSION Neutrophils k/cmm Absolute 1.6 1.1 - 4.0 HP CONVERSION Lymphocytes k/cmm Absolute 0.7 0.2 - 0.8 HP CONVERSION Monocytes k/cmm Absolute 0.2 0.0 - 0.5 HP CONVERSION Eosinophils k/cmm Absolute 0.1 0.0 - 0.2 HP CONVERSION Basophils k/cmm Specimen Anatomical Collection Method Collection Time Receive d Time (Source) Location / / Volume Laterality 03/10/2012 3:57 PM 2 3:57 CDT PM CDT Narrative HP CONVERSION - 03/10/2012 4:08 PM CDT Performed at [facility], [address] [place] [address] Janice Pearson LUIZAC LAB_1 Performing Organization Address [facility] Phon e Number HP CONVERSION BEDSIDE GLUCOSE MONITOR (03/10/2012 3:57 PM CDT) athologist Signature Bedside Blood 90 mg/dL HP CONVERSION Glucose Test Specimen Anatomical Collection Method Collection Time Receive d Time (Source) Location / / Volume Laterality 03/10/2012 3:57 PM 2 3:57 CDT PM CDT Narrative HP CONVERSION - 03/10/2012 4:05 PM CDT Performed at [facility], [address] [place] [address] Janice Pearson STEPHANIE-C LAB_1 Performing Organization Address [facility] Phon e Number HP CONVERSION Bilirubin, Total (03/10/2012 3:57 PM CDT) athologist Signature Bilirubin Total 1.0 0.2 - 1.2 HP CONVERSION mg/dL Specimen Anatomical Collection Method Collection Time Receive d Time (Source) Location / / Volume Laterality 03/10/2012 3:57 PM 2 3:57 CDT PM CDT Narrative HP CONVERSION - 03/10/2012 4:18 PM CDT Performed at [facility], [address] [place] [address] Janice Pearson STEPHANIE-C LAB_1 Performing Organization Address [facility] Phon e Number HP CONVERSION Amylase (03/10/2012 3:57 PM CDT) athologist Signature Amylase Serum 32 25 - 115 HP CONVERSION U/L Specimen Anatomical Collection Method Collection Time Receive d Time (Source) Location / / Volume Laterality 03/10/2012 3:57 PM 2 3:57 CDT PM CDT Narrative HP CONVERSION - 03/10/2012 4:18 PM CDT Performed at [facility], [address] [place] [address] Janice Diallo Lili MCRAE LAB_1 Performing Organization Address [facility] Phon e Number HP CONVERSION Lipase (03/10/2012 3:57 PM CDT) athologist Signature Lipase 43 5 - 70 U/L HP CONVERSION Specimen Anatomical Collection Method Collection Time Receive d Time (Source) Location / / Volume Laterality 03/10/2012 3:57 PM 2 3:57 CDT PM CDT Narrative HP CONVERSION - 03/10/2012 4:18 PM CDT Performed at [facility], [address] [place] [address] Janice Diallo Lili MCRAE LAB_1 Performing Organization Address [facility] Phon e Number HP CONVERSION Hemogram/Plts/Diff (03/10/2012 3:57 PM CDT) athologist Signature White Blood Cell 6.3 3.8 - 11.0 HP CONVERSIO N Count k/cmm Red Blood Cell 4.79 4.20 - HP CONVERSION Count 5.90 m/cmm Hemoglobin 14.7 13.4 - HP CONVERSION 17.5 g/dL Hematocrit 41.5 39.0 - HP CONVERSION 51.0 % Mean Corpuscular 86.5 80.0 - HP CONVERSION Volume 100.0 fL RDW 12.3 11.0 - HP CONVERSION 15.0 % Platelet Count 281 140 - 450 HP CONVERSION k/cmm Specimen Anatomical Collection Method Collection Time Receive d Time (Source) Location / / Volume Laterality 03/10/2012 3:57 PM 2 3:57 CDT PM CDT Narrative HP CONVERSION - 03/10/2012 4:08 PM CDT Performed at [facility], [address] [place] [address] Janice Diallo Lili MCRAE LAB_1 Performing Organization Address [facility] Phon e Number HP CONVERSION AST (03/10/2012 3:57 PM CDT) Patholo gist Method Time Signature Aspartate 33 0 - 45 HP CONVERSION Aminotransferase U/L Specimen Anatomical Collection Method Collection Time Receive d Time (Source) Location / / Volume Laterality 03/10/2012 3:57 PM 2 3:57 CDT PM CDT Narrative HP CONVERSION - 03/10/2012 4:18 PM CDT Performed at [facility], [address] [place] [address] Janice Diallo Lili MCRAE LAB_1 Performing Organization Address [facility] Phon e Number HP CONVERSION ALT (SGPT) (03/10/2012 3:57 PM CDT) [facility] gist Method Time Signature Alanine 44 4 - 55 HP CONVERSION Aminotransferase U/L Specimen Anatomical Collection Method Collection Time Receive d Time (Source) Location / / Volume Laterality 03/10/2012 3:57 PM 2 3:57 CDT PM CDT Narrative HP CONVERSION - 03/10/2012 4:18 PM CDT Performed at [facility], [address] [place] [address] Janice Diallo Lili MCRAE LAB_1 Performing Organization Address [facility] Phon e Number HP CONVERSION documented in this encounter Visit Diagnoses Diagnosis Acute epigastric pain Abdominal pain, epigastric Gassiness Flatulence, eructation, and gas pain documented in this encounter Care Teams Claims Supervisor Relationship Specialty Start Date End Date Raulito Saez APRN, COMPUTER LANGUAGE CODER PCP - General 12/24/10 09/25/18 documented as of this encounter
--- OUTSIDE RECORDS SUMMARY | 2022-06-18 08:44 | XMS_ITS | Encounter Summary ---
:1970 Author Organization [employer] Address [address], [place] [address] Care Team Providers Name Role Phone Raulito Saez APRNCHITO Primary Care Provider [phone] Encounter Details Date Type Department Care Team Description 01/14/2011 PN Conversion Only INTERNET MARKETING STRATEGIST [address] CON[address] Rick Limon MD [address] [facility] [address] [place] [address] [phone] (Wo rk) Social History Tobacco Use Types Packs/Day Years Used Date Smoking Tobacco: Never Assessed Sex Assigned at Date Recorded Not on file documented as of this encounter Plan of Treatment Not on filedocumented as of this encounter Procedures Procedure Name Priority Date/Time Associated Diagnosis Comme nts POST VASECTOMY Routine 01/14/2011 12:05 PM Result s for this CHECK CDT procedure are i n the results section. documented in this encounter Results POST VASECTOMY CHECK (01/14/2011 12:05 PM CDT) [facility] gist Method Time Signature Where Collected Off site No normal HP CONVERSION - Semen range Days of 2 days No normal HP CONVERSION Abstinence range Time Test 1,330 No normal HP CONVERSION Performed range Post Vasectomy see below No normal HP CONVERSION Sperm Count range Comment: 0 sperm per slide. Performed on centrifuged specimen. Specimen (Source) Anatomical Collection Method Collection Time Re ceived Time Location / / Volume Laterality 01/14/2011 12:05 PM CDT Rick Limon MD LAB_1 Performing Organization Address City/State/ZIP Code Phon e Number HP CONVERSION documented in this encounter Visit Diagnoses Not on filedocumented in this encounter Care Teams Customer Support Representative Relationship Specialty Start Date End Date Raulito Saez APRN, HOSPITAL NURSING ASSISTANT PCP - General 12/24/10 09/25/18 documented as of this encounter
--- OUTSIDE RECORDS SUMMARY | 2022-06-18 08:44 | XMS_ITS | Encounter Summary ---
:1970 Author Organization [employer] Address [address], [place] [address] Care Team Providers Name Role Phone Raulito Saez APRN, CNP Primary Care Provider [phone] Reason for Visit Reason Comments Refill Encounter Details Date Type Department Care Team Description 07/17/2011 Refill [facility] 38[address] A Brenda Guaman MD Refill [address] [place] [address] [place], [place] [id number] (Wo rk) Social History Tobacco Use Types Packs/Day Years Used Date Smoking Tobacco: Never Assessed Sex Assigned at Date Recorded Not on file documented as of this encounter Nursing Notes Mirella Serrano - 07/19/2011 8:44 AM CDT MERGED WITH [facility] One refill of Advair 250/50 faxed to pharmacy. Frontline: Last seen 07/14/10; [facility] documented in this encounter Plan of Treatment Not on filedocumented as of this encounter Visit Diagnoses Not on filedocumented in this encounter Care Teams Manager Client Relationship Specialty Start Date End Date Raulito Saez APRN, CNP PCP - General 4/7/11 1/7/19 documented as of this encounter
--- OUTSIDE RECORDS SUMMARY | 2022-06-18 08:44 | XMS_ITS | Encounter Summary ---
:1970 Author Organization [facility] Address [address], [place] [address] Care Team Providers Name Role Phone Raulito Saez APRN, CNP Primary Care Provider [phone] Encounter Details Date Type Department Care Team Description 01/25/2011 PN Conversion Only [facility] 3800 Mic Copeland MD Allergy 3800 [facility] [address] [facility] [place] [address] [phone] Social History Tobacco Use Types Packs/Day Years Used Date Smoking Tobacco: Never Assessed Sex Assigned at Date Recorded Not on file documented as of this encounter Plan of Treatment Not on filedocumented as of this encounter Visit Diagnoses Not on filedocumented in this encounter Care Teams Portfolio Manager Relationship Specialty Start Date End Date Raulito Saez APRN, CNP PCP - General 12/24/10 09/25/18 documented as of this encounter
--- OUTSIDE RECORDS SUMMARY | 2022-06-18 08:44 | XMS_ITS | Encounter Summary ---
:1970 Author Organization [email or web address] Address [address], [place] [address] Care Team Providers Name Role Phone Raulito Saez CHITO LUNDBERG Primary Care Provider [phone] Reason for Visit Reason Comments Refill Encounter Details Date Type Department Care Team Description 09/01/2011 Refill [facility] 3800 A llergy Brenda Copeland MD Refill [address] [place] [address] [place], [place] [phone] (Wo rk) Social History Tobacco Use Types Packs/Day Years Used Date Smoking Tobacco: Never Assessed Sex Assigned at Date Recorded Not on file documented as of this encounter Nursing Notes Brenda Copeland MD - 09/02/2011 12:48 PM CST New rx sent. MACHINE FEEDER Mirella Serrano - 09/02/2011 9:19 AM CST [facility] Has appt with you today. Please address. documented in this encounter Plan of Treatment Not on filedocumented as of this encounter Visit Diagnoses Not on filedocumented in this encounter Care Teams Sole Conforming Machine Operator Relationship Specialty Start Date End Date Raulito Saez, SCARF GLUER, WELT POCKET MACHINE OPERATOR PCP - General 12/24/10 09/25/18 documented as of this encounter
--- OUTSIDE RECORDS SUMMARY | 2022-06-18 08:44 | XMS_ITS | Encounter Summary ---
:1970 Author Organization [facility] Address [address] [address] Care Team Providers Name Role Phone Raulito Saez APRN, CNP Primary Care Provider [phone] Reason for Visit Reason Comments ALLERGY TESTING Encounter Details Date Type Department Care Team Description 07/30/2011 Nursing Visit [facility] 3800 Nurse, P3800 Allergic rhinitis, cause unspecified; Allergy All Unspecified asthma; [address] Need for desensitization [place] [address] Social History Tobacco Use Types Packs/Day Years Used Date Smoking Tobacco: Never Assessed Sex Assigned at Date Recorded Not on file documented as of this encounter Plan of Treatment Not on filedocumented as of this encounter Visit Diagnoses Diagnosis Allergic rhinitis, cause unspecified Unspecified asthma(493.90) ([facility]) Unspecified asthma Need for desensitization to allergens documented in this encounter Care Teams Puttier Relationship Specialty Start Date End Date Raulito Saez APRN, CNP PCP - General 12/24/10 09/25/18 documented as of this encounter
--- OUTSIDE RECORDS SUMMARY | 2022-06-18 08:44 | XMS_ITS | Encounter Summary ---
:1970 Author Organization [facility] Address [address] [place] [address] Care Team Providers Name Role Phone Raulito Saez APRN, CNP Primary Care Provider [phone] Encounter Details Date Type Department Care Team Description 01/16/2011 PN Conversion Only CONVERSION CONVERSION Eliecer Byrd, DO [address] [place] [address] (Wo rk) Social History Tobacco Use Types Packs/Day Years Used Date Smoking Tobacco: Never Assessed Sex Assigned at Date Recorded Not on file documented as of this encounter Plan of Treatment Not on filedocumented as of this encounter Visit Diagnoses Not on filedocumented in this encounter Care Teams Franchise Manager Relationship Specialty Start Date End Date Raulito Saez APRN, CNP PCP - General 12/24/10 09/25/18 documented as of this encounter
--- OUTSIDE RECORDS SUMMARY | 2022-06-18 08:44 | XMS_ITS | Encounter Summary ---
:1970 Author Organization [facility] Address [address] [address] Care Team Providers Name Role Phone Raulito Saez CHITO LUNDBERG Primary Care Provider [phone] Reason for Visit Reason Comments Follow-up Encounter Details Date Type Department Care Team Description 09/02/[address] [facility] 3800 Brenda Copeland Unsp ecified asthma (Primary Dx); Allergy Allergic rhinitis, cause unspecified; [address] Marva Frost [address] [place] [phone] (Wo rk) Social History Tobacco Use Types Packs/Day Years Used Date Smoking Tobacco: Never Assessed Sex Assigned at Date Recorded Not on file documented as of this encounter Last Filed Vital Signs Vital Sign Reading Time Taken Comments Blood Pressure 120/80 09/02/2011 10:45 AM FACILITY ATTENDANT Pulse - - Temperature - - Respiratory Rate - - Oxygen Saturation - - Inhaled Oxygen Concentration - - Weight 98.4 kg (217 lb) 09/02/2011 10:45 AM FACILITY ATTENDANT Height 184.2 cm (6' 0.5) 09/02/2011 10:45 AM FACILITY ATTENDANT Body Mass Index 29.03 09/02/2011 10:45 AM FACILITY ATTENDANT documented in this encounter Patient Instructions Patient InstructionsBrenda Copeland MD - 09/02/2011 11:37 AM CST Prednisone should be used for 5-10 days. Save extra for further use if avaiable. LITY ATTENDANT documented in this encounter Progress Notes Brenda Copeland MD - 09/02/2011 1:40 PM CST Hayden is a 41-year-old white male with severe asthma complicated by reflux, nasal polyposis and allergic rhinitis. Hayden ran out of Advair 2 days ago. He definitely notices a change in his breathing off controller medication. Asthma typically is manifest by wheezing, chest tightness and congestion. Exacerbation of sinus disease tends to be the most consistent trigger. He is due for followup with ENT and has noticed increased nasal congestion. Hayden has undergone 4 previous sinus surgeries. He does exercise with a personal banking officer on a regular basis and runs daily. He has no interference of activityor nighttime awakening because of breathing issues. When on Advair he does not use or needed albuterol at all. Hayden has had no problems with allergy injections other than being lax. He wakes consistently and has had no recent systemic reactions. He is aware of sleeping with the windows closed and showering after prolonged outdoor exposure. He attempts dust mite avoidance measures. Prednisone alone in his tolerated the when prednisone was combined with Levaquin he had a gastrointestinal bleed. Reflux well-controlled. It has been many years since his last fundoplication. Hayden has a new job and no longer works from home. He is 2 children in the [place] school district. 1 elderly lab-smith dog and a labradoodle. Nonsmoker. OBJECTIVE: Vital Signs: BP: 120/80 HT: 72.5 inches WT: 217 pounds. SKIN: Without rash. Eyes: Conjunctivae clear, PERRLA. Ears: Canals patent, TMs normal. Nose: Congestion with normal coloration. Moist membranes. No discharge. Oropharynx clear. Teeth and gums in good repair. NECK: Supple without adenopathy. Thyroid not enlarged. LUNGS: Clear with good air movement throughout. No wheezes, rales, or rhonchi. CV: Regular rate and rhythm, normal S1, S2. No murmurs, rubs,or gallops. SPIROMETRY: Stable. FEV1 2.76 liters, 83 % of predicted. FVC 4.75 liters, 83 % of predicted. FEV1/FVC ratio 79 %. FEF 25-75% 3.26 liters/sec, 78 % of predicted. ASSESSMENT: 1. Allergic Rhinitis with a history of nasal polyposis. Plan prednisone available in case of exacerbation. Discussed balancing risks and benefits of treatment and I would suggest a minimum of 1 prednisone burst prior to undergoing even sinus CT scan and definitely any surgical procedure. We reviewed allergy treatment options. Ongoing risk of anaphylaxis as a complications allergy immunotherapy reviewed. Importance of waiting and treating a reaction early emphasized. 2. Asthma Stable spirometry is reassuring. Patient aware of albuterol use changes, he should be evaluated sooner than scheduled followup. Reflux has not been a problem since his second surgery almost 10 years ago. I will obtain PFT in the next several weeks and call patient with results. 3. GERD. Symptoms currently quiescent. PLAN: 1. Reviewed allergen avoidance measures 2. Continue immunotherapy. Patient will receive her shots at [place] rather than [place] for convenience and work schedule. 3. No change in medications. 4. Return to clinic one year or p.r.n. documented in this encounter Plan of Treatment Not on filedocumented as of this encounter Visit Diagnoses Diagnosis Unspecified asthma(493.90) ([facility]) - Prima ry Unspecified asthma Allergic rhinitis, cause unspecified Esophageal reflux documented in this encounter Care Teams Acct Exec Relationship Specialty Start Date End Date Raulito Saez, CREW DISPATCHER, PROJECT PLANNER PCP - General 12/24/10 09/25/18 documented as of this encounter
--- OUTSIDE RECORDS SUMMARY | 2022-06-18 08:45 | XMS_ITS | Encounter Summary ---
:1970 Author Organization [facility] Address [address], [place] [address] Care Team Providers Name Role Phone Laci Hall MD Primary Care Provider Encounter Details Date Type Department Care Team Description 11/21/2009 PN Conversion Only [facility] 3800 CONV Rick Limon MD 3800 [facility] [address] [place] [address] (Wo rk) Social History Tobacco Use Types Packs/Day Years Used Date Smoking Tobacco: Never Assessed Sex Assigned at Date Recorded Not on file documented as of this encounter Plan of Treatment Not on filedocumented as of this encounter Procedures Procedure Name Priority Date/Time Associated Diagnosis Comme nts POST VASECTOMY Routine 11/21/2009 9:00 AM Results for this CHECK PERSONAL FINANCIAL COUNSELOR procedure are i n the results section. POST VASECTOMY Routine 11/21/2009 9:00 AM Results for this MOTILITY PERSONAL FINANCIAL COUNSELOR procedure are i n the results section. documented in this encounter Results Post Vasectomy Motility (11/21/2009 9:00 AM PERSONAL FINANCIAL COUNSELOR) [facility] gist Method Time Signature Post Vasectomy see below sperm/slid HP CONVERSION Motility Comment: No motile sperm seen. Specimen (Source) Anatomical Collection Method Collection Time Re ceived Time Location / / Volume Laterality 11/21/2009 9:00 AM PERSONAL FINANCIAL COUNSELOR Rick Limon MD LAB_1 Performing Organization Address City/State/ZIP Code Phon e Number HP CONVERSION POST VASECTOMY CHECK (11/21/2009 9:00 AM PERSONAL FINANCIAL COUNSELOR) [facility] gist Method Time Signature Where Collected Off site No normal HP CONVERSION - Semen range Days of 3 days No normal HP CONVERSION Abstinence range Time Test 1,015 No normal HP CONVERSION Performed range Post Vasectomy see below sperm/slid HP CONVERSION Sperm Count Comment: 1-10 sperm Performed on uncentrifuged specimen. Specimen (Source) Anatomical Collection Method Collection Time Re ceived Time Location / / Volume Laterality 11/21/2009 9:00 AM PERSONAL FINANCIAL COUNSELOR Rick Limon MD LAB_1 Performing Organization Address City/State/ZIP Code Phon e Number HP CONVERSION documented in this encounter Visit Diagnoses Not on filedocumented in this encounter Care Teams Dairy Farmer Relationship Specialty Start Date End Date Laci Hall MD PCP - General 12/20/10 12/23/10 [address] [place] [address] documented as of this encounter
--- OUTSIDE RECORDS SUMMARY | 2022-06-18 08:45 | XMS_ITS | Encounter Summary ---
:1970 Author Organization [employer] Address [address] [address] Care Team Providers Name Role Phone Laci Hall MD Primary Care Provider Encounter Details Date Type Department Care Team Description 06/18/2009 Office Visit [facility] Raulito Saez, Medicine OPERATIONAL RISK ANALYST, TRAY DELIVERY AIDE [address] [place] [address] [place], [place] [address] (Wo rk) Social History Tobacco Use Types Packs/Day Years Used Date Smoking Tobacco: Never Assessed Sex Assigned at Date Recorded Not on file documented as of this encounter Last Filed Vital Signs Vital Sign Reading Time Taken Comments Blood Pressure 128/90 06/18/2009 1:09 PM CDT Pulse 58 06/18/2009 1:09 PM CDT Temperature 36.7 ??C (98.1 ??F) 06/18/2009 1:09 PM ORAL C: 3 6.7 C CDT Respiratory Rate - - Oxygen Saturation - - Inhaled Oxygen Concentration - - Weight 101.1 kg (222 lb 15.9 06/18/2009 1:09 PM C: 101. 2kg oz) CDT Height - - Body Mass Index 29.83 09/03/2008 2:08 PM TRAINING AND DOCUMENTATION SPECIALIST documented in this encounter Progress Notes Raulito Saez, OPERATIONAL RISK ANALYST, TRAY DELIVERY AIDE - 06/18/2009 12:01 AM CDT Progress Notes signed by YOHANA Seth at 06/18/09 5441 Author: YOHANA Seth Service: (none) Author Type: Nurse Practitioner Filed: 01/09/11 1643 Note Time: 06/18/09 0001 Status: Signed Database Marketing Manager: YOHANA Seth (Nurse Practitioner) Chief concern: Right upper quadrant abdominal pain Other concerns: None Past medical history: Asthma, GERD, rhinitis, status post Robert fundoplications, history of GI bleed. Medications: Reviewed. See Medication List in LastWord. Adverse Drug Reactions: Levaquin, prednisone Habits: No smoking HPI: Patient presents today complaining of right upper quadrant abdominal pain. Onset of symptoms greater than one year. Yesterday symptoms increase, he was seen at the [facility] emergency department, bedside portable ultrasound obtained, reported possible gallbladder sludge, laboratory tests obtained, records are not available today to be reviewed. He was told to obtain a formal ultrasound and a surgical consultation. The pain has improved today, now 09/28. Denies other concerns. Review of systems: Denies chest pain, shortness of breath. Denies bowel or bladder symptoms. Denies numbness, tingling, swelling in the extremities. Weight is stable. Mild right upper quadrant elbow pain. No vomiting. No hematochezia. OBJECTIVE: Vital Signs: Blood pressure 120/90, pulse 58, temp 98.0, weight 223 pounds. Patient is alert oriented and pleasant. No acute distress. Head: Normocephalic. Eyes: PERRLA, full EOM. External exams normal. Ears: Normal pinnae, canals, and TM's. Nose: Patent, without deformity. Throat: Moist mucous membranes without lesions, erythema, or exudate. Neck: Supple, no cervical lymphadenopathy. Thyroid nontender, without swelling or nodules palpated. Respiratory: Normal respiratory effort. Lungs are clear with good breath sounds. Heart: Regular rate and rhythm, no murmurs, rubs, gallops. Abdomen: The abdomen was flat, soft without guarding rebound or masses. Mild right upper quadrant tenderness to palpation. Legs: Without edema. ASSESSMENT: 1. Right upper quadrant abdominal pain PLAN: 1. right upper quadrant ultrasound pending 2. Consult general surgery. The patient was discharged ambulatory and in stable condition and agreed with the above plan. *SH~DNS~SOAP documented in this encounter Plan of Treatment Not on filedocumented as of this encounter Visit Diagnoses Not on filedocumented in this encounter Care Teams Behavioral Instructor Relationship Specialty Start Date End Date Laci Hall MD PCP - General 12/20/10 12/23/10 [address] [place] [address] documented as of this encounter
--- OUTSIDE RECORDS SUMMARY | 2022-06-18 08:45 | XMS_ITS | Encounter Summary ---
:1970 Author Organization [email or web address] Address [address] [address] Care Team Providers Name Role Phone Laci Hall MD Primary Care Provider Encounter Details Date Type Department Care Team Description 04/02/2010 PN Conversion Only BATCH ANALYST 3800 CONV Rick Limon MD [address] [facility] [address] [place] [address] (Wo rk) Social History Tobacco Use Types Packs/Day Years Used Date Smoking Tobacco: Never Assessed Sex Assigned at Date Recorded Not on file documented as of this encounter Plan of Treatment Not on filedocumented as of this encounter Procedures Procedure Name Priority Date/Time Associated Diagnosis Comme nts POST VASECTOMY Routine 04/02/2010 11:44 AM Result s for this CHECK CDT procedure are i n the results section. documented in this encounter Results POST VASECTOMY CHECK (04/02/2010 11:44 AM CDT) [facility] gist Method Time Signature Where Collected Off site No normal HP CONVERSION - Semen range Days of 2 days No normal HP CONVERSION Abstinence range Time Test 12:45 No normal HP CONVERSION Performed range Post Vasectomy see below No normal HP CONVERSION Sperm Count range Comment: 0 sperm per slide. Performed on centrifuged specimen. Specimen (Source) Anatomical Collection Method Collection Time Re ceived Time Location / / Volume Laterality 04/02/2010 11:44 AM CDT Rick Limon MD LAB_1 Performing Organization Address City/State/ZIP Code Phon e Number HP CONVERSION documented in this encounter Visit Diagnoses Not on filedocumented in this encounter Care Teams Molder Shoulder Pad Relationship Specialty Start Date End Date Laci Hall MD PCP - General 12/20/10 12/23/[address] [place] [address] documented as of this encounter
--- OUTSIDE RECORDS SUMMARY | 2022-06-18 08:45 | XMS_ITS | Encounter Summary ---
:1970 Author Organization [facility] Address [address] [address] Care Team Providers Name Role Phone Laci Hall MD Primary Care Provider Encounter Details Date Type Department Care Team Description 04/15/2009 Procedure Visit [facility] [place] [address] [place] [address] [phone] [address] (Wo rk) Social History Tobacco Use Types Packs/Day Years Used Date Smoking Tobacco: Never Assessed Sex Assigned at Date Recorded Not on file documented as of this encounter Progress Notes Rick Limon MD - 04/15/2009 12:01 AM CDT Procedures signed by Rick Limon MD at 04/15/09 1514 Author: Rick Limon MD Service: (none) Author Type: Physician Filed: 01/09/11 1504 Note Time: 04/15/09 0001 Status: Signed Appeals Rn: Rick Limon MD (Physician) NAME: HAYDEN AMARO MR#: [id number] ACCT: [id number] VISIT: [id number] DICTATING CLINICIAN: Rick Limon MD CONFIRM #: [id number] LOC: [facility] CLINIC PROCEDURE REPORT DATE OF VISIT: 04/15/2009 SUBJECTIVE: Mr. Amaro is a 38-year-old gentleman here for a vasectomy. Please see previous notes. OBJECTIVE: After informed consent was obtained, patient was brought to the procedure room, placed supine on the procedure table. He was prepped and draped in standard surgical fashion. A 3-finger technique was used to isolate the vas deferens on the right-hand side. Local lidocaine was injected. A no-scalpel technique was used to open the skin. A 1 cm segment was excised. Intraluminal cautery was performed for an additional centimeter both proximally and distally. A metal clip was placed on each end and buried in surrounding fascial tissue. An identical procedure was performed on the patient's left-hand side through the same incision site. Used 3-0 chromic suture to close the skin. ASSESSMENT: PLAN: The patient will follow up in 4 months for semen sample. [facility]:[id number] C: 04/15/09 14:22 CONFIRM #: [id number] documented in this encounter Plan of Treatment Not on filedocumented as of this encounter Visit Diagnoses Not on filedocumented in this encounter Care Teams Substation Operator Transforming Relationship Specialty Start Date End Date Laci Hall MD PCP - General 12/20/10 12/23/10 [address] [place] [address] documented as of this encounter
--- OUTSIDE RECORDS SUMMARY | 2022-06-18 08:45 | XMS_ITS | Encounter Summary ---
:1970 Author Organization [facility] Address [address], [place] [address] Care Team Providers Name Role Phone Laci Hall MD Primary Care Provider Encounter Details Date Type Department Care Team Description 05/28/2008 Office Visit [facility] [place] [address] [address] (Wo rk) Social History Tobacco Use Types Packs/Day Years Used Date Smoking Tobacco: Never Assessed Sex Assigned at Date Recorded Not on file documented as of this encounter Progress Notes Rick Limon MD - 05/28/2008 12:01 AM CDT Progress Notes signed by Rick Limon MD at 05/29/08 1142 Author: Rick Limon MD Service: (none) Author Type: Physician Filed: 01/09/11 0653 Note Time: 05/28/08 0001 Status: Signed Agricultural Engineering Teacher: Rick Limon MD (Physician) NAME: HAYDEN AMARO MR#: [id number] ACCT: [id number] VISIT: [id number] DICTATING CLINICIAN: Rick Limon MD CONFIRM #: [id number] LOC: [facility] CLINIC PROGRESS NOTE DATE 05/28/2008: Mr. Amaro is a 37-year-old gentleman who is here to discuss a vasectomy. His is 38 years of age and they have 2 children. They are definitely sure they do not want to have anymore children. PAST MEDICAL HISTORY: Significant for an upper GI bleed, as well as a Robert fundoplication. EXAMINATION: Vas are easily palpable bilaterally. ASSESSMENT/PLAN: Patient desires a vasectomy. He understands the consent to permanent procedure. He knows he needs to bring a semen sample 4 months after the vasectomy to verify sterility prior to stopping other control methods. One percent chance for early failure; 1 in 3,000 risk for late failure. Small risk of bleeding, infection, and chronic testicular pain. Also, discussed tubal plugs for females. The above complications are usually managed medically but may require surgical treatment as well. DATE: [facility]:[id number] C: 05/29/08 09:23 CONFIRM #: [id number] documented in this encounter Plan of Treatment Not on filedocumented as of this encounter Visit Diagnoses Not on filedocumented in this encounter Care Teams Crepe Machine Operator Relationship Specialty Start Date End Date Laci Hall MD PCP - General 12/20/10 12/23/10 [address] [place] [address] documented as of this encounter
--- OUTSIDE RECORDS SUMMARY | 2022-06-18 08:45 | XMS_ITS | Encounter Summary ---
:1970 Author Organization [facility] Address [address], [place] [address] Care Team Providers Name Role Phone Raulito Saez TOÑO, POSTAL SORTING OFFICER Primary Care Provider [phone] Reason for Visit Reason Comments Other Encounter Details Date Type Department Care Team Description 11/18/2007 Telephone [place] [id number] Internal Gael Ramsey RN Other Medicine [address] [place] [address] Social History Tobacco Use Types Packs/Day Years Used Date Smoking Tobacco: Never Assessed Sex Assigned at Date Recorded Not on file documented as of this encounter Progress Notes Pal Ramsey RN - 11/18/2007 9:24 PM CST Phone Note filed by Pal Ramsey RN at 01/06/11 8618 Author: Pal Ramsey RN Service: (none) Author Type: (none) Filed: 01/06/119 Note Time: 11/18/072123 Status: Signed Yard Person: Karina De Leon CLINICIAN FOLLOW-UP: Contacted operations vice president clinician: Called operations vice president Dr.Yue Mitchell. She advised 800mg of Ibuprofen q6h. May alternate with Tylenol 1000mg not to exceed 400mg / Day. Nurse call back advised patient as per operations vice president. IMPRESSION: Fever. SYMPTOMS: Patient calling due to being dx with Influenza A today and started Tamiflu. His concern is he took Tylenol 100mg 2 hrs ago and still has a temp of 104 and minor chills. Has body aches. Breathing is good so far. Mild headache and can touch chin to chest. Wants to know what else he can do to bring temp down. PATIENT INFORMATION: Problem List: Reviewed today in LastWord INTERIM/HOME MANAGEMENT RECOMMENDATIONS: Advised to callback if any of the following occur: symptoms worsen or persist, any other questions or concerns. If home management not helpful. PLAN: CONTACT LEAD INVESTIGATOR CLINICIAN Patient/Caller agrees with plan and denies additional questions. Call Complete. *SH~PNNERY~SCHOLAR ~ Created on 18Nov2007 9:24pm by PAL RAMSEY IFIED ORTHOPTIST documented in this encounter Plan of Treatment Not on filedocumented as of this encounter Visit Diagnoses Not on filedocumented in this encounter Care Teams Lead Pl Sql Developer Relationship Specialty Start Date End Date Raulito Saez, [employer], POSTAL SORTING OFFICER PCP - General 12/24/10 09/25/18 documented as of this encounter
--- OUTSIDE RECORDS SUMMARY | 2022-06-18 08:45 | XMS_ITS | Encounter Summary ---
:1970 Author Organization [employer] Address [address] [address] Care Team Providers Name Role Phone Laci Hall MD Primary Care Provider Encounter Details Date Type Department Care Team Description 05/15/2009 Office Visit [facility] Torri López MD [address] [address] [phone] Social History Tobacco Use Types Packs/Day Years Used Date Smoking Tobacco: Never Assessed Sex Assigned at Date Recorded Not on file documented as of this encounter Last Filed Vital Signs Vital Sign Reading Time Taken Comments Blood Pressure 106/72 05/15/2009 10:57 AM CDT Pulse 78 05/15/2009 10:57 AM CDT Temperature 36.8 ??C (98.2 ??F) 05/15/2009 10:57 AM ORAL C: 36.8 C CDT Respiratory Rate 16 05/15/2009 10:57 AM CDT Oxygen Saturation 98% 05/15/2009 10:57 AM CDT Inhaled Oxygen Concentration - - Weight 100.7 kg (221 lb 15.7 05/15/2009 10:57 AM C: 100 .7kg oz) CDT Height - - Body Mass Index 29.69 09/03/2008 2:08 PM CARDIAC CATH LAB MANAGER documented in this encounter Progress Notes Aurora López MD - 05/15/2009 12:01 AM CDT Progress Notes signed by Aurora López MD at 05/23/09 0811 Author: Aurora López MD Service: (none) Author Type: Physician Filed: 01/09/11 1552 Note Time: 05/15/092010 Status: Signed Petroleum Supply Specialist: Aurora López MD (Physician) NAME: HAYDEN AMARO MR#: [id number] ACCT: [id number] VISIT: [id number] DICTATING CLINICIAN: AURORA LÓPEZ MD CONFIRM #: [id number] LOC: 506 CLINIC PROGRESS NOTE DATE OF VISIT: 05/15/2009 SUBJECTIVE: : 1970. HISTORY: 38-year-old with coughing and sinus drainage. He has a sore throat, a lot of sinus drainage, coughing. He is coughing up yellow and brown sputum. He was up at the [facility] recently on vacation. He has now had fevers, chills, and sweating. He has significant nasal polyposis also, but has not wanted to have surgery. He is on Advair 1 puff twice a day. He has now been using his albuterol 3 times a day. He has an asthma action plan at home and a peak flow meter, which he is not using. He knows when he is supposed to take prednisone and he states it is not yet. He does not like prednisone because he had some gastrointestinal bleeding. No chest pain or shortness of breath at this time. He does have a history of severe asthma. He is using his Nasacort also. HABITS: No smoking. PAST MEDICAL HISTORY: See the updated list in today's LastWord patient health profile. ADR/ALLERGIES: SEE THE UPDATED LIST IN TODAY'S LASTWORD PATIENT HEALTH PROFILE. MEDICATIONS: See the updated list in today's LastWord patient health profile. OBJECTIVE: VS: BP: 106/72. T: 98.2. P: 78. Wt: 222. Oxygen saturation: 98% on room air. GENERAL: He is an overweight male who is in no respiratory distress. Eyes: No icterus or injection. ENT: Tympanic membranes, oropharynx appear clear. Nasal mucosa shows polyps, especially on the right. NECK: No lymphadenopathy, thyromegaly, or jugular venous distention. LUNGS: Clear. CARDIOVASCULAR: Regular rate and rhythm. No gallops, murmurs, or rubs are appreciated. LOWER EXTREMITY: No edema. ASSESSMENT: 1. Bronchitis. 2. Asthma. 3. Polyposis. PLAN: He will take Augmentin 875 one b.i.d. for 14 days. I also gave him prednisone if he is not turning around within 24-48 hours on the antibiotic. I would like him to take prednisone 20 mg 1 twice a day for 5 days, then 1 daily for 5 days. He needs to follow up urgently for any worsening of symptoms. I recommend he does find his peak flow meter and use it. SME:[id number] C: 05/19/09 10:46 CONFIRM #: [id number] documented in this encounter Plan of Treatment Not on filedocumented as of this encounter Visit Diagnoses Not on filedocumented in this encounter Care Teams Documentation Billing Clerk Relationship Specialty Start Date End Date Laci Hall MD PCP - General 12/20/10 12/23/10 [address] [id number] documented as of this encounter
--- OUTSIDE RECORDS SUMMARY | 2022-06-18 08:45 | XMS_ITS | Encounter Summary ---
:1970 Author Organization [facility] Address [address] [address] Care Team Providers Name Role Phone Raulito Saez Yemi LUNDBERG CNP Primary Care Provider [phone] Encounter Details Date Type Department Care Team Description 12/24/2010 PN Conversion Only [facility] [address] [place] [address] Social History Tobacco Use Types Packs/Day Years Used Date Smoking Tobacco: Never Assessed Sex Assigned at Date Recorded Not on file documented as of this encounter Plan of Treatment Not on filedocumented as of this encounter Procedures Procedure Name Priority Date/Time Associated Diagnosis Comme nts MR LUMBAR SPINE WO Routine 12/24/2010 11:25 AM Re sults for this IV CONT CDT procedure are i n the results section. documented in this encounter Results MR Lumbar Spine WO IV Cont (12/24/2010 11:25 AM CDT) Anatomical Region Laterality Modality Spine, L-Spine, Skeletal Other Specimen (Source) Anatomical Location Collection Method / Collectio n Time Received Time / Laterality Volume Impressions 12/24/2010 11:25 AM CDT : 1. Broad-based disk bulge with associate d annular tear at the L4-L5 level effaces the ventral thecal sac. ?? Small superimposed disk extrusion at the L4-L5 levels extend 6 m eters inferiorly from the disk space. There is narrowing of the la teral recesses bilaterally at the L4-L5 level where the disk bulge abu ts the traversing L5 nerve roots. 2. Mild narrowing of the proximal left L 4-L5 and left L5-S1 neural foramen. 3. Small central disk protrusion mildly effaces the ventral thecal sac at the L5-S1 level. 4. 2 mm retrolisthesis of L3 on L4. ??Mi ld broad-based disk bulge flattens the ventral thecal sac at the L 3-L4 level. Dictating EVERETTE AMAYA Radiologist Narrative 12/24/2010 11:25 AM CDT CLINICAL INDICATION: Right back pain, right S1 radiculopathy, weakness after treatment TECHNIQUE: routine protocol without IV c ontrast FINDINGS: 5 lumbar type vertebral bodies . ??Conus medullaris is normal in appearance and terminates at the L1 l evel. T12-L1: The spinal canal and neural fora men are patent. L1-L2: The spinal canal and neural yulia en are patent. Small Schmorl's node inferior endplate of L1. L2-L3: Small hemangioma within the L2 ve rtebral body. ??The spinal canal and neural foramen are patent. ??S mall Schmorl's node inferior endplate of L2. L3-L4: Disk desiccation and loss of disk space height. ??2 mm retrolisthesis of L3 on L4. ??Mild broad -based disk bulge flattens the ventral thecal sac. ??The neural foramen are patent. ??Small Schmorl's node in appearance of L3. L4-L5: Disk desiccation and loss of disk space height. ??Broad-based disk bulge with associated annular tear effaces the ventral thecal sac. ??Small superimposed disk extrusion extends 6 mm inferiorly from the disk space. ??Mild narrowing of the proximal left neural foramen. The right neural foramen is patent. L5-S1: Disk desiccation and loss of disk space height. ??Small central disk protrusion mildly effaces the ventr al thecal sac. ??Mild narrowing of the proximal left neural fo ramen. ??The right neural foramen is patent. Procedure Note Everette Pack MD - 03/05/2016Forma tting of this note might be different from the original. CLINICAL INDICATION: Right back pain, ri ght S1 radiculopathy, weakness after treatment TECHNIQUE: routine protocol without IV c ontrast FINDINGS: 5 lumbar type vertebral bodies . Conus medullaris is normal in appearance and terminates at the L1 l evel. T12-L1: The spinal canal and neural fora men are patent. L1-L2: The spinal canal and neural yulia en are patent. Small Schmorl's node inferior endplate of L1. L2-L3: Small hemangioma within the L2 ve rtebral body. The spinal canal and neural foramen are patent. Sma ll Schmorl's node inferior endplate of L2. L3-L4: Disk desiccation and loss of disk space height. 2 mm retrolisthesis of L3 on L4. Mild broad-b ased disk bulge flattens the ventral thecal sac. The neural foramen a re patent. Small Schmorl's node in appearance of L3. L4-L5: Disk desiccation and loss of disk space height. Broad-based disk bulge with associated annular tear effaces the ventral thecal sac. Small superimposed disk extrusion e xtends 6 mm inferiorly from the disk space. Mild narrowing of the pr oximal left neural foramen. The right neural foramen is patent. L5-S1: Disk desiccation and loss of disk space height. Small central disk protrusion mildly effaces the ventr al thecal sac. Mild narrowing of the proximal left neural fo ramen. The right neural foramen is patent. IMPRESSION : 1. Broad-based disk bulge with associate d annular tear at the L4-L5 level effaces the ventral thecal sac. Sm all superimposed disk extrusion at the L4-L5 levels extend 6 m eters inferiorly from the disk space. There is narrowing of the la teral recesses bilaterally at the L4-L5 level where the disk bulge abu ts the traversing L5 nerve roots. 2. Mild narrowing of the proximal left L 4-L5 and left L5-S1 neural foramen. 3. Small central disk protrusion mildly effaces the ventral thecal sac at the L5-S1 level. 4. 2 mm retrolisthesis of L3 on L4. Mild broad-based disk bulge flattens the ventral thecal sac at the L 3-L4 level. Dictating EVERETTE AMAYA Radiologist Raulito Saez APRN ENGINEERING CONSULTANT RAD MRI documented in this encounter Visit Diagnoses Not on filedocumented in this encounter Care Teams Environmental Studies Faculty Member Relationship Specialty Start Date End Date Raulito Saez APRN, ENGINEERING CONSULTANT PCP - General 12/24/10 09/25/18 documented as of this encounter
--- OUTSIDE RECORDS SUMMARY | 2022-06-18 08:45 | XMS_ITS | Encounter Summary ---
:1970 Author Organization [facility] Address [address], [place] [address] Care Team Providers Name Role Phone Nasrin Elliott CONSTRUCTION CARPENTERS HELPER, CRANE OPERATOR CAB Primary Care Provider [phone] Reason for Visit Reason Comments Other Encounter Details Date Type Department Care Team Description 12/25/2010 Telephone [facility] Kyra Badillo LPN Other [address] [place] [address] Social History Tobacco Use Types Packs/Day Years Used Date Smoking Tobacco: Never Assessed Sex Assigned at Date Recorded Not on file documented as of this encounter [facility], Message - 12/25/2010 9:57 AM CDT Lab/Radiology Results Caller Name/Relationship:Hayden Primary Emergency Response Officer:Nadja What test result is needed?MRI spine When and where was test done?[facility] 12/24/10 Who ordered the test?Nadja Printing Pressman:Hayden Best call back number:[phone] Is it OK to leave a confidential message on this voicemail?yes *[id number] Created on 25Dec2010 9:57am by YANET CROWLEY On 25Dec2010 10:32am NASRIN ELLIOTT wrote: called, detailed message left, instructed to keep appt with Dr Billingsley on 12/28/10 as planned. Acknowledged by NASRIN ELLIOTT on 10:32am Acknowledged by KYRA BADILLO on 10:59am documented in this encounter Plan of Treatment Not on filedocumented as of this encounter Visit Diagnoses Not on filedocumented in this encounter Care Teams Cell Manager Relationship Specialty Start Date End Date Nasrin Elliott, CONSTRUCTION CARPENTERS HELPER, CRANE OPERATOR CAB PCP - General 12/24/10 09/25/18 documented as of this encounter
--- OUTSIDE RECORDS SUMMARY | 2022-06-18 08:45 | XMS_ITS | Encounter Summary ---
:1970 [facility] Address [address], [place] [address] Care Team Providers Name Role Phone Raulito Saez Yemi LUNDBERG CNP Primary Care Provider [phone] Reason for Visit Reason Comments Other Encounter Details Date Type Department Care Team Description 08/19/2008 Telephone [facility] [address], Message Other [address] [place], [place] [address] Social History Tobacco Use Types Packs/Day Years Used Date Smoking Tobacco: Never Assessed Sex Assigned at Date Recorded Not on file documented as of this encounter [facility], Message - 08/19/2008 12:29 PM CST Phone Note filed by [employer] at 01/07/11 4549 Author: [employer] Service: (none) Author Type: (none) Filed: 01/07/11 1138 Note Time: 08/19/08 1229 Status: Signed Automatic Fabric Cutter: [employer] Prescription Refill Please provide enough refills to last until patient's next visit. Comment:- lv 07/11/07 fv 09/03/08 Pharmacy Seq #:- [phone] [facility] [phone] or City:- [place] Clinician Name:Marion sheth Drug Name/Strength:- advair disku 500/50 Sig: Dose/Route/Freq:- inhale 1 dose twice daily Quantity & Last Fill:-#60 06/13/08 Created on [id number] 12:29pm by EMILY TUBBS ILE MACHINE OPERATOR documented in this encounter Plan of Treatment Not on filedocumented as of this encounter Visit Diagnoses Not on filedocumented in this encounter Care Teams Phosphoric Acid Supervisor Relationship Specialty Start Date End Date Raulito Saez, CONCAVING MACHINE OPERATOR, SLEEP TECHNOLOGIST PCP - General 12/24/10 09/25/18 documented as of this encounter
--- OUTSIDE RECORDS SUMMARY | 2022-06-18 08:45 | XMS_ITS | Encounter Summary ---
:[address] [facility] [facility] Address [address], [place] [address] Care Team Providers Name Role Phone Raulito Saez Yemi LUNDBERG CNP Primary Care Provider [phone] Reason for Visit Reason Comments Other Encounter Details Date Type Department Care Team Description 04/22/2009 Telephone [facility] [address] Narayanan RN Other [address] [place], [place] [address] Social History Tobacco Use Types Packs/Day Years Used Date Smoking Tobacco: Never Assessed Sex Assigned at Date Recorded Not on file documented as of this encounter Progress Notes Andre Boucher RN - 04/22/2009 9:54 AM CDT Phone Note filed by Andre Boucher RN at 01/08/11832 Author: Andre Boucher RN Service: (none) Author Type: (none) Filed: 01/08/11832 Note Time: 04/22/09953 Status: Signed Rug Sample Beveler: Karina De Leon (Physician) pt calling stating he has a marble sized, tubular shaped lump behind the left testicle, positive for pain, denies swelling or redness. denies fever. vas on 7-30. should he come in to see you today in [place]? [phone] Created on 22Apr2009 9:54am by ANDRE BOUCHER On 22Apr2009 10:03am JANNY PRATHER wrote: if it is on the skin, he should come in, if under the skin and no redness, would recomm scrotal support, anti-inflamm, call if not getting better or persistant, thanks Acknowledged by JANNY PRATHER on 10:03am On 22Apr2009 10:14am ANDRE BOUCHER wrote: relayed information to the patient, he will wait and call next week if things do not get better or if redness develops. pt states it is under the skin. Acknowledged by ANDRE BOUCHER on 10:14am S OPERATIONS documented in this encounter Plan of Treatment Not on filedocumented as of this encounter Visit Diagnoses Not on filedocumented in this encounter Care Teams Coding File Clerk Relationship Specialty Start Date End Date Raulito Saez, EMBRYOLOGY PROFESSOR, ENGLISH AS A SECOND LANGUAGE INSTRUCTOR PCP - General 12/24/10 09/25/18 documented as of this encounter
--- OUTSIDE RECORDS SUMMARY | 2022-06-18 08:45 | XMS_ITS | Encounter Summary ---
:1970 Author Organization [employer] Address [address] [address] Care Team Providers Name Role Phone Laci Hall MD Primary Care Provider Encounter Details Date Type Department Care Team Description 09/03/2008 Office Visit [facility] [place] [id number] [place] [address] [phone] (Wo rk) Social History Tobacco Use Types Packs/Day Years Used Date Smoking Tobacco: Never Assessed Sex Assigned at Date Recorded Not on file documented as of this encounter Last Filed Vital Signs Vital Sign Reading Time Taken Comments Blood Pressure 128/90 09/03/2008 2:08 PM ASSISTANT ACTIVITIES DIRECTOR Pulse - - Temperature - - Respiratory Rate - - Oxygen Saturation - - Inhaled Oxygen Concentration - - Weight 100.7 kg (221 lb 15.7 09/03/2008 2:08 PM C: 100. 7kg oz) ASSISTANT ACTIVITIES DIRECTOR Height 184.2 cm (6' 0.5) 09/03/2008 2:08 PM C: 184.2cm ASSISTANT ACTIVITIES DIRECTOR Body Mass Index 29.69 09/03/2008 2:08 PM ASSISTANT ACTIVITIES DIRECTOR documented in this encounter Progress Notes Brenda Copeland MD - 09/03/2008 12:01 AM CST Progress Notes signed by Brenda Copeland MD at 09/10/08 1555 Author: Brenda Copeland MD Service: (none) Author Type: Physician Filed: 01/09/11 0920 Note Time: 09/03/08 0001 Status: Signed Tugboat Captain: Brenda Copeland MD (Physician) NAME: HAYDEN AMARO MR#: [id number] ACCT: [id number] VISIT: [id number] DICTATING CLINICIAN: BRENDA COPELAND MD CONFIRM #: [id number] LOC: 514 CLINIC PROGRESS NOTE DATE OF VISIT: 09/03/2008 SUBJECTIVE: : 1970. Hayden is a 38-year-old white male with a history of severe asthma complicated by reflux, nasal polyposis, requiring previous multiple surgeries and allergic rhinitis. He has been on shots here at [facility] since 07/2007. He obtains 1 shot for dust mite, still on the middle concentration. The second shot is for molds, again on the middle concentration and a third shot for bluegrass, hu grass and ragweed. He states the shots have provided marked improvement in his nasal symptoms. This summer, he had no sneezing, rhinorrhea, itchy, watery ears or nose. He does wait consistently and has had no significant local or systemic reactions. He has had more sinus problems recently. He describes pressure, thick mucus and colors coming from his nasal cavity that he states, [employer] has yet to invent. Nasacort helps somewhat. Last time, he was given Levaquin and prednisone in combination. He had an upper GI bleed requiring hospitalization. He would prefer to see ENT prior to further empiric treatment. In the past, antibiotics or steroids alone have failed to control symptoms. He states while living in [place] he was having almost yearly surgery. Asthma has been under very good control. He uses his Advair 500/50 one puff in the morning only. He used albuterol once while exercising in the cold air this fall. He denies any cough, wheezing, shortness of breath, nighttime awakening or exercise intolerance. He states his reflux has been under very good control since his most recent fundoplication surgery. He is a nonsmoker. There is a Lab and Labradoodle dog at home. MEDICATIONS: Albuterol p.r.n., Nasacort AQ 2 sprays per naris daily, Advair 500/50 one puff daily, topical steroids. ADR/ALLERGIES: LEVAQUIN, PREDNISONE IN COMBINATION CAUSING UPPER GI BLEED. OBJECTIVE: VS: BP: 128/90. Ht: 72-1/2 in. Wt: 222 lb. Healthy male, nasal congestion noted. SKIN: Without rash. Eyes: Conjunctivae clear. PERRLA. Ears: Canals patent. TMs normal. Nose: Congested, dry mucosa. No polyps noted. Oropharynx clear. Teeth and gums, good repair. NECK: Supple without adenopathy. Thyroid not palpable. LUNGS: Clear with good air movement. No wheezes, rales or rhonchi. CV: Regular rate and rhythm. Normal S1, S2. No murmurs, rubs or gallops. Spirometry consistent with previous. FEV1 4.03 liters, 88%; FVC 4.91 liters, 85%; ratio 82%; small airflow 3.85 L/S, 89% of predicted. ASSESSMENT: 1. Rhinitis of multifactorial etiology. Discussed need to come in for shots on a regular basis in order to build to a dose high enough to achieve maximum benefit. Ongoing risk of anaphylaxis and need to wait after each and every shot discussed. Given previous history, I do agree with ENT consult. I scheduled CT scan of his sinuses today to have prior to ENT evaluation. 2. Asthma, clinically stable. PLANS: 1. Allergen avoidance reviewed. 2. Continue allergy therapy. 3. Proventil HFA 2 puffs q.4 hours p.r.n. 4. Decrease Advair to 250/50 one puff b.i.d., may increase to 1 puff q. day if able. 5. Nasacort AQ 2 sprays per naris daily. 6. CT scan of sinuses and ENT consult. PLAN: [facility]:[id number] C: 09/03/08 23:08 CONFIRM #: [id number] STANT ACTIVITIES DIRECTOR documented in this encounter Plan of Treatment Not on filedocumented as of this encounter Procedures Procedure Name Priority Date/Time Associated Diagnosis Comme nts CT SINUS WO IV CONT Routine 09/03/2008 3:12 PM Re sults for this ASSISTANT ACTIVITIES DIRECTOR procedure are i n the results section. documented in this encounter Results CT Sinus WO IV Cont (09/03/2008 3:12 PM ASSISTANT ACTIVITIES DIRECTOR) Anatomical Region Laterality Modality Head Other Specimen (Source) Anatomical Location Collection Method / Collectio n Time Received Time / Laterality Volume Narrative 09/03/2008 3:12 PM ASSISTANT ACTIVITIES DIRECTOR Sinuses were scanned coronally and show complete opacification of the right side of the sphenoid sinus and rig ht ethmoid sinus with complete opacification of the right fron ozzy sinus as well. Significant opacification in the superio r aspect of the nasal cavity on the right. ??Findings are consistent with diffuse polyposis and/or sinusitis. ??Nasal septal deviation conv ex left. ??There appears to have been nasal antral windows bilateral ly. ??There is marked mucosal thickening in both maxillary antra. ??Tu rbinate hypertrophy of the inferior turbinates, left greater than r ight. ??The left side of the sphenoid sinus, left frontal sinus, and left ethmoid sinus are relatively clear. [id number]/fiore Dictating HU KIRK MD Procedure Note Hu Hewitt - 11/18/2016 Sinuses were scanned coronally and show complete opacification of the right side of the sphenoid sinus and rig ht ethmoid sinus with complete opacification of the right fron ozzy sinus as well. Significant opacification in the superio r aspect of the nasal cavity on the right. Findings are consistent wi th diffuse polyposis and/or sinusitis. Nasal septal deviation convex left. There appears to have been nasal antral windows bilateral ly. There is marked mucosal thickening in both maxillary antra. Turb inate hypertrophy of the inferior turbinates, left greater than r ight. The left side of the sphenoid sinus, left frontal sinus, and left ethmoid sinus are relatively clear. [id number]/fiore Dictating HU KIRK MD Brenda Copeland MD RAD CT documented in this encounter Visit Diagnoses Not on filedocumented in this encounter Care Teams Twist Packer Relationship Specialty Start Date End Date Laci Hall MD PCP - General 12/20/10 12/23/10 [address] [place] MARQUIS RODRIGUEZ [address] documented as of this encounter
--- OUTSIDE RECORDS SUMMARY | 2022-06-18 08:45 | XMS_ITS | Encounter Summary ---
:1970 Author Organization [employer] Address [address], [place] [address] Care Team Providers Name Role Phone Laci Hall MD Primary Care Provider Encounter Details Date Type Department Care Team Description 05/29/2008 Office Visit [facility] [place] [address] [address] [place], [place] [id number] Social History Tobacco Use Types Packs/Day Years Used Date Smoking Tobacco: Never Assessed Sex Assigned at Date Recorded Not on file documented as of this encounter Last Filed Vital Signs Vital Sign Reading Time Taken Comments Blood Pressure 130/80 05/29/2008 11:27 AM CDT Pulse 77 05/29/2008 11:27 AM CDT Temperature 37 ??C (98.6 ??F) 05/29/2008 11:27 AM CDT ORAL C : 37.0 C Respiratory Rate 14 05/29/2008 11:27 AM CDT Oxygen Saturation - - Inhaled Oxygen Concentration - - Weight - - Height - - Body Mass Index - - documented in this encounter Progress Notes Sree Dallas MD - 05/29/2008 12:01 AM CDT Progress Notes signed by Sree Dallas MD at 06/02/08 1010 Author: Sree Dallas MD Service: (none) Author Type: Physician Filed: 01/09/11 0654 Note Time: 05/29/08 0001 Status: Signed Reconditioning Associate: Sree Dallas MD (Physician) NAME: HAYDEN AMARO MR#: [id number] ACCT: [id number] VISIT: [id number] DICTATING CLINICIAN: Sree Dallas MD CONFIRM #: [id number] LOC: 520 CLINIC PROGRESS NOTE DATE OF VISIT: 05/29/2008 SUBJECTIVE: : 1970. Patient is a 37-year-old comes in with upper respiratory symptoms, congested cough. Patient is an asthmatic on Advair. Done quite well on Advair till the last 2 to 3 days. Started with nasal drainage, went into his chest as well. He denies any fevers, chills or sweats. He does have a nebulizer that he uses at home as well as Advair. He is on Advair maximal dose 500 mg twice a day. His history is that he had also had an upper GI bleed on prednisone and Levaquin in the past. OBJECTIVE: VS: BP: 130/80. T: 98.6. P: 77. R: 14. Oxygen 99%. Examination his ears, nose, and throat were unremarkable. NECK: Negative. CHEST AND LUNGS: He had no wheezing. He had a few rhonchi, but no rales. HEART: Rate and rhythm were unremarkable. He was not diaphoretic or toxic. ASSESSMENT: Asthma secondary to upper respiratory infection, and good controlling medications. PLAN: If worsening would add a burst of prednisone. However, at this time he will push fluids. Antibiotics if fevers, chills and sweats develop. FINAL IMPRESSION: URI exacerbation of asthma. Prednisone prescription written. DRL:[id number] C: 05/29/08 16:08 CONFIRM #: [id number] documented in this encounter Plan of Treatment Not on filedocumented as of this encounter Visit Diagnoses Not on filedocumented in this encounter Care Teams Certified Ophthalmic Assistant Relationship Specialty Start Date End Date Laci Hall MD PCP - General 12/20/10 12/23/10 [address] [place] MARQUIS RODRIGUEZ [address] documented as of this encounter
--- OUTSIDE RECORDS SUMMARY | 2022-06-18 08:45 | XMS_ITS | Encounter Summary ---
:1970 Author [facility] Address [address], [place] [address] Care Team Providers Name Role Phone Laci Hall MD Primary Care Provider Encounter Details Date Type Department Care Team Description 07/09/2008 PN Conversion Only [facility] Laci Hall, [address] [facility] [place] [address] [address] [facility] [address] [place] [address] (Wo rk) Social History Tobacco Use Types Packs/Day Years Used Date Smoking Tobacco: Never Assessed Sex Assigned at Date Recorded Not on file documented as of this encounter Plan of Treatment Not on filedocumented as of this encounter Procedures Procedure Name Priority Date/Time Associated Comments Diagnosis THYROID STIMULATING Routine 07/09/2008 3:34 PM Re sults for this HORMONE CDT procedure are i n the results section. RPR BLOOD Routine 07/09/2008 3:34 PM Results f or this CDT procedure are i n the results section. documented in this encounter Results Thyroid Stimulating Hormone (07/09/2008 3:34 PM CDT) P athologist Signature Thyroid 0.97 0.20 - HP CONVERSION Stimulating 4.50 Hormone uIU/mL Specimen (Source) Anatomical Collection Method Collection Time Re ceived Time Location / / Volume Laterality 07/09/2008 3:34 PM CDT Laci Hall MD LAB_1 Performing Organization Address City/[facility]/ZIP Code Phon e Number HP CONVERSION RPR Blood (07/09/2008 3:34 PM CDT) P athologist Signature RPR Non Reac Non Reac HP CONVERSION Specimen (Source) Anatomical Collection Method Collection Time Re ceived Time Location / / Volume Laterality 07/09/2008 3:34 PM CDT Laci Hall MD LAB_1 Performing Organization Address City/[facility] Phon e Number HP CONVERSION documented in this encounter Visit Diagnoses Not on filedocumented in this encounter Care Teams Sport Psychologist Relationship Specialty Start Date End Date Laci Hall MD PCP - General 12/20/10 12/23/10 [address] [place] MARQUIS RODRIGUEZ [address] documented as of this encounter
--- OUTSIDE RECORDS SUMMARY | 2022-06-18 08:45 | XMS_ITS | Encounter Summary ---
:1970 Author [facility] Address [address], [place] [address] Care Team Providers Name Role Phone Laci Hall MD Primary Care Provider Encounter Details Date Type Department Care Team Description 02/24/2008 PN Conversion Only [facility] [address] Mic Copeland MD Allergy [address] [facility] [address] [facility] [place] [address] [phone] Social History Tobacco Use Types Packs/Day Years Used Date Smoking Tobacco: Never Assessed Sex Assigned at Date Recorded Not on file documented as of this encounter Plan of Treatment Not on filedocumented as of this encounter Visit Diagnoses Not on filedocumented in this encounter Care Teams Director Of Acquisitions Relationship Specialty Start Date End Date Laci Hall MD PCP - General 12/20/10 12/23/10 [address] [place] MARQUIS RODRIGUEZ [address] documented as of this encounter
--- OUTSIDE RECORDS SUMMARY | 2022-06-18 08:45 | XMS_ITS | Encounter Summary ---
:1970 Author [facility] Address [address], [place] [address] Care Team Providers Name Role Phone Raulito Saez APRN TORQUE TESTER Primary Care Provider [phone] Reason for Visit Reason Comments Other Encounter Details Date Type Department Care Team Description 09/09/2008 Telephone [facility] [address] Brenda Guaman MD Other [address] [facility] [address] [place] [address] [place], [place] [address] (Wo rk) Social History Tobacco Use Types Packs/Day Years Used Date Smoking Tobacco: Never Assessed Sex Assigned at Date Recorded Not on file documented as of this encounter Progress Notes Brenda Orta MD - 09/09/2008 5:16 PM CST Phone Note filed by Brenda rOta MD at 01/07/11 1620 Author: Brenda Orta MD Service: (none) Author Type: Physician Filed: 01/07/11 1316 Note Time: 09/09/081715 Status: Signed Soil Science Teacher: Brenda Orta MD (Physician) Spoke to patient. Discussed CT scan of sinuses which shows diffuse disease. Consult ENT. Created on 09Sep2008 5:16pm by BRENDA ORTA T HANGER documented in this encounter Plan of Treatment Not on filedocumented as of this encounter Visit Diagnoses Not on filedocumented in this encounter Care Teams Warehouse Order Selector Relationship Specialty Start Date End Date Raulito Saez, CONSTRUCTION REP, TORQUE TESTER PCP - General 12/24/10 09/25/18 documented as of this encounter
--- OUTSIDE RECORDS SUMMARY | 2022-06-18 08:45 | XMS_ITS | Encounter Summary ---
:1970 Author Organization [facility] Address [address] [address] Care Team Providers Name Role Phone Raulito Saez APRN, CNP Primary Care Provider [phone] Encounter Details Date Type Department Care Team Description 12/18/2010 Office Visit [place] [facility] Raulito Saez, Medicine TOÑO, CHITO [address] [address] [place] [address] [place], [place] [address] (Wo rk) Social History Tobacco Use Types Packs/Day Years Used Date Smoking Tobacco: Never Assessed Sex Assigned at Date Recorded Not on file documented as of this encounter Last Filed Vital Signs Vital Sign Reading Time Taken Comments Blood Pressure 145/73 12/18/2010 3:38 PM CDT C: Omron Pulse 55 12/18/2010 3:38 PM CDT Temperature - - Respiratory Rate - - Oxygen Saturation - - Inhaled Oxygen Concentration - - Weight 97.1 kg (213 lb 15.7 oz) 12/18/2010 3:38 PM CDT C: 97.1kg Height - - Body Mass Index 28.62 09/22/2010 8:54 AM PIPE LINE REPAIRER documented in this encounter Progress Notes Raulito Saez, TOÑO, CHITO - 12/18/2010 12:01 AM CDT Chief concern: Right leg pain, weakness Other concerns: None Past medical history: Asthma, GERD, rhinitis Medications: Reviewed. See Medication List in LastWord. Adverse Drug Reactions: Levaquin, prednisone Habits: Denies tobacco use HPI: The patient complains of right leg pain and weakness. Symptoms started after lifting heavy weights August of 2010, doing squats and deadlifts. Since then he has had right leg pain, paresthesia and weakness. Symptoms worsened with sitting for extended periods of time. Symptoms will also worsen while driving. Denies any other trauma or injury. No history of low back issues. Currently rates pain 11/26. Tried chiropractic without improvement. Denies other concerns. Review of systems: Denies chest pain, shortness of breath. Denies bowel or bladder symptoms. Denies numbness, tingling, swelling in the extremities. Weight is stable. Right lower back pain, right buttock pain. Right lateral lower leg pain, right fourth and fifth toe paresthesia. Intermittent right leg weakness. No saddle anesthesia. No left-sided symptoms. OBJECTIVE: Vital Signs: Blood pressure 145/73, pulse 55, weight 214 pounds. Patient is alert oriented and pleasant. [...] murmurs, rubs, gallops. Abdomen: The abdomen was soft and nontender without guarding rebound or masses. No hepatosplenomegaly. Low back exam: Flexion and extension normal. Negative straight leg raises. Nerve root testing normal. He is ambulatory with a steady gait. ASSESSMENT: 1. Right low back pain, right leg radiculopathy probable S1 nerve root with intermittent weakness PLAN: 1. LS-spine MRI pending 2. Offered medication, patient declined at this time 3. Followup based on results, he has an appointment scheduled with an orthopedic spinal surgeon and will keep this appointment based on results. The patient was discharged ambulatory and in stable condition and agreed with the above plan. *SH~DNS~SOAP documented in this encounter Plan of Treatment Not on filedocumented as of this encounter Visit Diagnoses Not on filedocumented in this encounter Care Teams Equine Breeder Relationship Specialty Start Date End Date Raulito Saez APRN, CNP PCP - General 12/24/10 09/25/18 documented as of this encounter
--- OUTSIDE RECORDS SUMMARY | 2022-06-18 08:45 | XMS_ITS | Encounter Summary ---
:1970 Author Organization [employer] Address [address] [address] Care Team Providers Name Role Phone Laci Hall MD Primary Care Provider Encounter Details Date Type Department Care Team Description 06/24/2009 Office Visit [facility] [place] [address] [address] [address] [place], [place] [address] (Wo rk) Social History Tobacco Use Types Packs/Day Years Used Date Smoking Tobacco: Never Assessed Sex Assigned at Date Recorded Not on file documented as of this encounter Last Filed Vital Signs Vital Sign Reading Time Taken Comments Blood Pressure 124/82 06/24/2009 2:58 PM CDT Pulse - - Temperature - - Respiratory Rate - - Oxygen Saturation - - Inhaled Oxygen Concentration - - Weight - - Height 184.2 cm (6' 0.5) 06/24/2009 2:58 PM CDT C: 184 .2cm Body Mass Index - - documented in this encounter Progress Notes Brenda Copeland MD - 06/24/2009 12:01 AM CDT Progress Notes signed by Brenda Copeland MD at 06/26/09 5781 Author: Brenda Copeland MD Service: (none) Author Type: Physician Filed: 01/09/11 9264 Note Time: 10/06/09 0001 Status: Signed Nuclear Auxiliary Operator: Brenda Copeland MD (Physician) NAME: HAYDEN AMARO MR#: [id number] ACCT: [id number] VISIT: [id number] DICTATING CLINICIAN: BRENDA COPELAND MD CONFIRM #: [id number] LOC: 514 CLINIC PROGRESS NOTE DATE OF VISIT: 06/24/2009 SUBJECTIVE: : 1970. Hayden is a 38-year-old white male with severe asthma complicated by reflux, nasal polyposis and rhinitis. He was on immunotherapy for a brief time, but convenience and family commitments made shots almost impossible. He has undergone 2 Robert fundoplication surgeries for reflux. He has also undergone sinus surgery. He is scheduled to see Dr. Dave Berg, ENT, out of the [facility] tomorrow. He had a repeat CT scan and suspects surgery will be needed in the very near future. Nasal congestion and polyps have had less and less of a response to prednisone over the past several months. His nose is constantly congested and he has a congested quality to his voice. There is some nasal drainage and his sense of smell has markedly decreased. Sometimes he will have discharge with the consistency and color of verma play dough. Snoring is not a problem, but halitosis is. Asthma has been under good control until last week. He used his bronchodilator twice this week for wheezing and shortness of breath. Historically, strenuous exercise worsening nasal polyposis or reflux is his most consistent trigger. He had been on multiple courses of prednisone and suspects combination of prednisone and lack of PPI contributed to symptoms. He has had no nighttime awakening. Immunotherapy is not a current option. Hayden is a nonsmoker. There is a Lab/Irwin dog at home that does bother him, especially if he touches the dog and touches his eyes. A Labradoodle does not cause problems. MEDICATIONS: Triamcinolone cream available, Advair 250/50 one puff twice daily, Nasacort AQ, currently out, Ventolin p.r.n., Loratadine p.r.n. ADR/ALLERGIES: LEVOFLOXACIN AND PREDNISONE COMBINATION CAUSING GI BLEEDING, BUT HE HAS TOLERATED PREDNISONE SUBSEQUENTLY. OBJECTIVE: VS: BP: 124/82. Ht: 72.5 in. Wt: 223 lb. Healthy male, obvious nasal congestion noted. SKIN: No rash. Eyes: Conjunctivae clear. PERRLA. Ears: Canals patent. TMs normal. Nose: Large obstructing polyp on right. Nasal mucosa normal on left, but more difficulty passing air on left. Oropharynx clear. Teeth and gums: Good repair. NECK: Supple. No adenopathy. Thyroid not palpable. LUNGS: Clear with good air movement. No wheezes, rales or rhonchi. CV: Regular rate and rhythm. Normal S1, S2. No murmurs, rubs or gallops. Spirometry consistent with previous. FEV1 3.79 L, 83%; FVC 4.71 L, 82%; ratio 81%; small airflow 3.47 L/s, 81% of predicted. ASSESSMENT: 1. Rhinitis of multifactorial etiology. Patient definitely has both allergic and polyps contributing to symptoms. At this point, short of long-term steroids, little can be done from an allergy standpoint to remove polyps. Immunotherapy has been shown to decrease the recurrence of polyps, however, patient must balance lifestyle, commitments. 2. Asthma. Spirometry slightly decreased from past, but consistent with previous readings. Patient asked to return in several months after sinus surgery to see if spirometry changes. In the meantime, will call if symptoms change significantly and likely increase regular inhaled corticosteroids. PLAN: 1. Allergen avoidance discussed. 2. Nasacort AQ 2 sprays per nares daily. 3. Advair 250/50 one puff b.i.d. 4. Albuterol p.r.n. 5. Continue [id number] nonsedating antihistamines as needed. 6. Return to clinic 08/[address] [facility]:[id number] C: 06/25/09 09:37 CONFIRM #: [id number] documented in this encounter Plan of Treatment Not on filedocumented as of this encounter Visit Diagnoses Not on filedocumented in this encounter Care Teams Landing Gear Mechanic Relationship Specialty Start Date End Date Laci Hall MD PCP - General 12/20/10 12/23/[address] [place] [address] documented as of this encounter
--- OUTSIDE RECORDS SUMMARY | 2022-06-18 08:45 | XMS_ITS | Encounter Summary ---
:1970 Author Organization [facility] Address [address] [address] Care Team Providers Name Role Phone Nasrin Elliott APRN, CHITO Primary Care Provider [phone] Reason for Visit Reason Comments Other Encounter Details Date Type Department Care Team Description 12/25/2010 Telephone [facility] Kyra Badillo LPN Other [address] [place] [address] Social History Tobacco Use Types Packs/Day Years Used Date Smoking Tobacco: Never Assessed Sex Assigned at Date Recorded Not on file documented as of this encounter Progress [facility], Message - 12/25/2010 3:36 PM CDT X-Ray MR Spine lumbar results are avaialable in LW. Created on 25Dec2010 3:36pm by GAURANG SAAVEDRA On 25Dec2010 3:38pm NASRIN ELLIOTT wrote: called, message left, instructed to follow up as planned. Acknowledged by NASRIN ELLIOTT on 3:38pm Acknowledged by KYRA BADILLO on 4:06pm documented in this encounter Plan of Treatment Not on filedocumented as of this encounter Visit Diagnoses Not on filedocumented in this encounter Care Teams Delivery Director Relationship Specialty Start Date End Date Nasrin Elliott, VP GLOBAL, CONSTRUCTION SALES MANAGER PCP - General 12/24/10 09/25/18 documented as of this encounter
--- OUTSIDE RECORDS SUMMARY | 2022-06-18 08:45 | XMS_ITS | Encounter Summary ---
:1970 Author Organization [facility] Address [address] [address] Care Team Providers Name Role Phone Laci Hall MD Primary Care Provider Encounter Details Date Type Department Care Team Description 07/14/2010 Office Visit [facility] [place] [address] [employer] [id number] [place] [id number] (Wo rk) Social History Tobacco Use Types Packs/Day Years Used Date Smoking Tobacco: Never Assessed Sex Assigned at Date Recorded Not on file documented as of this encounter Last Filed Vital Signs Vital Sign Reading Time Taken Comments Blood Pressure 122/80 07/14/2010 10:23 AM CDT Pulse - - Temperature - - Respiratory Rate - - Oxygen Saturation - - Inhaled Oxygen Concentration - - Weight 98.9 kg (217 lb 15.9 oz) 07/14/2010 10:23 AM C: 98.9kg CDT Height 184.2 cm (6' 0.5) 07/14/2010 10:23 AM C: 184.2c m CDT Body Mass Index 29.16 07/14/2010 10:23 AM CDT documented in this encounter Progress Notes Brenda Copeland MD - 07/14/2010 12:01 AM CDT Progress Notes signed by Brenda Copeland MD at 07/14/10 1301 Author: Brenda Copeland MD Service: (none) Author Type: Physician Filed: 01/10/11 0234 Note Time: 07/14/10 0001 Status: Signed Change Management Coordinator: Brenda Copeland MD (Physician) CLINIC NOTE: July 14, 2010 Hayden is a 39-year-old white male with severe asthma complicated by reflux, nasal polyposis and allergic rhinitis. Hayden was seen in urgent care earlier this week. For 2 weeks prior, he did note more nasal congestion, purulent drainage and intermittent bloody discharge. Several days into his symptoms, he aspirated fluid which was followed by chest tightness. Albuterol did help and he used it several times per day for several days in a row. A chest x-ray was obtained in urgent care which was normal. Hayden uses the nasal saline lavage as symptoms warrant. Recently, discharge has been more yellow and thick. It is able to drain out of his right nares but not his left. He suspects a recurrence of his nasal polyp. He was last able to smell anything 3 months ago. He claims this fall and spring more miserable for his allergies. Symptoms manifested by sneezing, congestion, pruritis. In the past, he definitely felt better on allergy shots and always stopped because of the inconvenience of coming in regularly to get his shot. He is now determined to try to make it work. Despite this recent episode, Hayden has had no asthma symptoms including wheezing, cough, chest congestion or tightness. He uses Advair regularly with good tolerance. He does work out regularly with activities including martial arts, lifting weights and running. He has had no interference with activity or sleep. No bad colds of going into his chest. No symptoms of reflux since his last Robert fundoplication almost 10 years ago. Hayden does have mild eczema on his hands primarily in the winter. He has a circumflex available which is used rarely but does provide relief. Hayden is a nonsmoker. He has one lab-malave mix dog which is very sickly and elderly. This animal he suspects exacerbates symptoms. His second dog, a labradoodle does not cause any reactions. Medications: Reviewed. See Medication List in LastWord. Adverse Drug Reactions: LEVOFLOXACIN AND PREDNISONE COMBINATION CAUSING GI BLEEDING, BUT HE HAS TOLERATED PREDNISONE SUBSEQUENTLY. OBJECTIVE: Vital Signs : BP: 122/80 HT: 72.5 inches WT: 218 pounds. SKIN: Without rash. Eyes: Conjunctivae clear, PERRLA. Ears: Canals patent, TMs normal. Nose: Normal mucosa without discharge, or discoloration. Left nares with very posterior polyp. Oropharynx clear. Teeth and gums in good repair. NECK: Supple without adenopathy. Thyroid not enlarged. LUNGS: Clear with good air movement throughout. No wheezes, rales, or rhonchi. CV: Regular rate and rhythm, normal S1, S2. No murmurs, rubs,or gallops. SPIROMETRY: Unable to perform because of machine malfunction. ASSESSMENT: 1. Rhinitis and mixed etiology. Clinically patient has had exacerbation of allergy symptoms this year. He has felt better when receiving allergy immunotherapy. We did discuss commitment and time required with allergy shots. He is determined to make it work and would like to restart shots. As for his polyp, he does not feel symptoms are severe enough to warrant any intervention. He is cautious about prednisone because of acute GI bleed in the past when taking prednisone. In the future, if systemic steroids are needed he would prefer to be on a PPI for several days prior to starting therapy. We did discuss balancing risks and benefits of symptoms versus medications and side effects. At this point, Hayden is content to not treat polyp. He will restart the nasal steroid spray once epistaxis has resolved. 2. Asthma. I suspect the recent exacerbation was multifactorial with worsening polyp and potential virus all playing a role. Reflux has not been a problem since his second surgery almost 10 years ago. I will obtain PFT in the next several weeks and call patient with results. 3. GERD. Symptoms currently quiescent. PLAN: 1. Allergen avoidance discussed 2. Flu shot given today 3. Restart immunotherapy. Orders written. Hayden will begin at shots at [place] but potentially change to a clinic closer to home after consulting with insurance company. 4. Continue Advair 250/50 micrograms one puff b.i.d. Ventolin p.r.n. 5. Nasacort AQ 2 sprays per nares daily as tolerated 6. loratadine p.r.n. Discussed safety at doses higher than FDA recommended. Patient warned higher doses are associated with increased risk of sedation. 7. arrange for PFT and upcoming injection visit. 8. Return to clinic one year or as needed. *SH~DNS~SOAP2 documented in this encounter Plan of Treatment Not on filedocumented as of this encounter Visit Diagnoses Not on filedocumented in this encounter Care Teams Textile Machinery Instructor Relationship Specialty Start Date End Date Laci Hall MD PCP - General 12/20/10 12/23/10 [id number] [place] [address] documented as of this encounter
--- OUTSIDE RECORDS SUMMARY | 2022-06-18 08:45 | XMS_ITS | Encounter Summary ---
:1970 Author Organization [facility] [employer] Address [address] [place] [address] Care Team Providers Name Role Phone Raulito Saez APRN, ENAMEL SPRAYER Primary Care Provider [phone] Encounter Details Date Type Department Care Team Description 09/22/2010 Shot Peening Operator Only [facility] Brenda Copeland MD [address] [facility] . [address] [place] [address] [address] [phone] [place], [place] [id number] (Wo rk) Social History Tobacco Use Types Packs/Day Years Used Date Smoking Tobacco: Never Assessed Sex Assigned at Date Recorded Not on file documented as of this encounter Progress Notes Brenda Copeland MD - 09/22/2010 12:01 AM CST Hayden was seen today for a spirometry. At last visit, the machine was not functioning and I wanted to be assured his asthma was under control prior to starting allergy immunotherapy. He reported no problems with his asthma and only used his rescue inhaler once when he attended a New Year's constitution party at a home with a cat. EXAM: Oral pharynx clear. No exudate. Lungs: clear with good air movement. SPIROMETRY: Unchanged from previous. FEV1 3.88 L (85% predicted), FVC 4.91 L (86% predicted), FEV1/FVC 79%, FEF 25-50% 3.40 L/S (81% predicted). IMPRESSION: Asthma: clinically and objectively stable. Allergic Rhinitis: proceed with plan. RTC as previously scheduled. ICAL DERMATOLOGIST documented in this encounter Plan of Treatment Not on filedocumented as of this encounter Visit Diagnoses Not on filedocumented in this encounter Care Teams Aerospace Project Engineer Relationship Specialty Start Date End Date Raulito Saez, ASSEMBLY PRESS OPERATOR, ENAMEL SPRAYER PCP - General 12/24/10 09/25/18 documented as of this encounter
--- OUTSIDE RECORDS SUMMARY | 2022-06-18 08:45 | XMS_ITS | Encounter Summary ---
:1970 Author [email or web address] Address [address] [address] Care Team Providers Name Role Phone Laci Hall MD Primary Care Provider Encounter Details Date Type Department Care Team Description 07/08/2010 Office Visit [facility] [place] [address] [place] [address] Social History Tobacco Use Types Packs/Day Years Used Date Smoking Tobacco: Never Assessed Sex Assigned at Date Recorded Not on file documented as of this encounter Last Filed Vital Signs Vital Sign Reading Time Taken Comments Blood Pressure 120/77 07/08/2010 11:38 AM CDT Pulse 56 07/08/2010 11:38 AM CDT Temperature 36.5 ??C (97.7 ??F) 07/08/2010 11:38 AM CDT C: 3 6.5 C Respiratory Rate 20 07/08/2010 11:38 AM CDT Oxygen Saturation 97% 07/08/2010 11:38 AM CDT Inhaled Oxygen Concentration - - Weight - - Height - - Body Mass Index - - documented in this encounter Progress Notes Karyna Maurer MD - 07/08/2010 12:01 AM CDT Progress Notes signed by Karyna Maurer MD at 07/19/10 7061 Author: Karyna Maurer MD Service: (none) Author Type: Physician Filed: 01/10/11 0225 Note Time: 07/08/10 0001 Status: Signed Airport Guide: Karyna Maurre MD (Physician) NAME: HAYDEN AMARO MR#: [id number] ACCT: [id number] VISIT: [id number] DICTATING CLINICIAN: Karyna Maurer MD CONFIRM #: [id number] LOC: 520 CLINIC PROGRESS NOTE DATE OF VISIT: 07/08/2010 : 1970 This 39-year-old male comes in with concern for having wheezing and problem breathing, starting 3 days ago. He tells me he does have history of asthma, but states usually this is exercise-induced and on a regular basis he does not have the need to use his inhaler frequently. He brings up the concern that 3 days ago without any previous symptoms he kind of choked on some food and drink which he was swallowing at the same time. He feels that he might have aspirated something at that time, because since he has noticed some wheezing. He has been using his inhaler more frequently. He is concerned, because as mentioned above, he usually does not need to use his inhaler regularly. He tells me this morning still he was wheezing and comes in for evaluation. Denies any fevers or chills. Also he brings up the concern that he has been getting some nosebleeds recently a few times a day, although they are easily controlled. He does use Nasacort for his allergic rhinitis. Denies any recent cold symptoms. He is sure that he did not have any wheezing prior to this episode of choking sensation. No other related symptoms. PAST MEDICAL HISTORY: Asthma, reflux, allergic rhinitis, nasal polyps and sinus surgery. MEDICATIONS: Reviewed in LastWord. ALLERGIES: ALSO REVIEWED IN LASTWORD. PHYSICAL EXAMINATION: Temperature 97.7. Pulse 56. Respiratory rate 20. Blood pressure 120/77. Oxygen saturation 97% on room air. He does not smoke. Exam shows patient looking great, does not look sick at all. He is breathing comfortably. His nose is obviously congested. Throat looks normal and he has had uvulectomy. Ears show normal TMs. NECK: Supple. No lymph nodes palpable. LUNGS: Clear without any wheezing even with forced expiration. CARDIOVASCULAR: Regular rhythm and rate, normal S1, S2. IMPRESSION: 1. Recent bronchospasm by report. 2. Episode of choking sensation while eating food. 3. Short episodes of recent epistaxis. PLAN: I do not appreciate any signs of bronchospasm today, but because of history of choking sensation I did order a two-view chest x-ray on him and basically read by me as normal. Discussed with patient that I do not find any abnormality on his exam today and it is possible that he is having his wheezing because of other triggers that might aggravate his asthma. Would recommend use of albuterol inhaler as directed. Regarding his nose bleeds, the fact that he is on intermediate teacher use of steroid nasal spray makes it more possible, so would recommend to use saline nasal sprays for several days. The patient actually was seen in allergy clinic June 24, and by that note it seems that he has had quite a bit of problem with asthma, which has been also related to possible reflux and nasal polyps and rhinitis for him. Overall he looks good and no abnormality on exam, so would recommend the usual management for his asthma. He was advised to be rechecked if fever, chills, worsening of wheezing or overall feeling sicker in any way. Follow up primary MD recommended. FK:MEDQ C: CONFIRM #: [id number] documented in this encounter Plan of Treatment Not on filedocumented as of this encounter Procedures Procedure Name Priority Date/Time Associated Diagnosis Comme nts XR CHEST 2 VIEWS Routine 07/08/2010 12:14 PM Resu lts for this CDT procedure are i n the results section. documented in this encounter Results XR Chest 2 Views (07/08/2010 12:14 PM CDT) Anatomical Region Laterality Modality Chest, Lung Other Specimen (Source) Anatomical Location Collection Method / Collectio n Time Received Time / Laterality Volume Impressions 07/08/2010 12:14 PM CDT : Two views were obtained. ??There are mildly increased right perihilar markings which could ref lect bronchitis or some other viral type process. ??The lungs and cost ophrenic angles are otherwise clear. ??Heart size and pulmonary vascul arity are within normal limits. ??There is no evidence of pneumo thorax or pleural effusion. Dictating MEERA QUINTERO Radiologist Narrative 07/08/2010 12:14 PM CDT COMPARISON: ??None. Procedure Note Meera Armendariz MD - 03/05/2016Formattin g of this note might be different from the original. COMPARISON: None. IMPRESSION : Two views were obtained. There are mil dly increased right perihilar markings which could ref lect bronchitis or some other viral type process. The lungs and costop hrenic angles are otherwise clear. Heart size and pulmonary vascular ity are within normal limits. There is no evidence of pneumoth orax or pleural effusion. Dictating MEERA QUINTERO Radiologist Karyna Maurer MD RAD GD documented in this encounter Visit Diagnoses Not on filedocumented in this encounter Care Teams Appellate Law Clerk Relationship Specialty Start Date End Date Laci Hall MD PCP - General 12/20/10 12/23/10 [address] [address] [place] [address] documented as of this encounter
--- OUTSIDE RECORDS SUMMARY | 2022-06-18 08:45 | XMS_ITS | Encounter Summary ---
:1970 Author [facility] Address [address] [address] Care Team Providers Name Role Phone Raulito Saez CHITO LUNDBERG Primary Care Provider [phone] Reason for Visit Reason Comments Other Encounter Details Date Type Department Care Team Description 08/03/2010 Telephone [place] [id number] [facility] [address] [place] [address] Social History Tobacco Use Types Packs/Day Years Used Date Smoking Tobacco: Never Assessed Sex Assigned at Date Recorded Not on file documented as of this encounter Progress Notes Becka Martinez RN - 08/03/2010 2:29 PM CST Phone Note filed by Becka Martinez RN at 01/09/112250 Author: Becka Martinez RN Service: (none) Author Type: Registered Nurse Filed: 01/09/112250 Note Time: 08/03/101428 Status: Signed Food Order Expediter: Becka Martinez RN (Registered Nurse) [facility] pt, jin 07/14/10. Pt said is going to be restarting allergy injections [facility]. Pt wondering if serums were ready. Informed pt card would be mailed pt pt's home when serums completed and then can get first injection. Pt states understanding. PT; [phone] to lm. Created on 03Aug2010 2:29pm by BECKA MARTINEZ ICAL CARE TECHNICIAN documented in this encounter Plan of Treatment Not on filedocumented as of this encounter Visit Diagnoses Not on filedocumented in this encounter Care Teams Health And Safety Inspector Relationship Specialty Start Date End Date Raulito Saez APRN, SPECIAL EQUIPMENT TECHNICIAN PCP - General 12/24/10 09/25/18 documented as of this encounter
--- OUTSIDE RECORDS SUMMARY | 2022-06-18 08:45 | XMS_ITS | Encounter Summary ---
:1970 Author Organization [email or web address] Address [address] [address] Care Team Providers Name Role Phone Laci Hall MD Primary Care Provider Encounter Details Date Type Department Care Team Description 08/03/[address] [facility] [address] Mic Copeland MD Allergy [address] [facility] [address] [facility] [place] [address] [phone] Social History Tobacco Use Types Packs/Day Years Used Date Smoking Tobacco: Never Assessed Sex Assigned at Date Recorded Not on file documented as of this encounter Plan of Treatment Not on filedocumented as of this encounter Visit Diagnoses Not on filedocumented in this encounter Care Teams Otr Flatbed Driver Relationship Specialty Start Date End Date Laci Hall MD PCP - General 12/20/10 12/23/10 [address] [place] [address] documented as of this encounter
--- OUTSIDE RECORDS SUMMARY | 2022-06-18 08:45 | XMS_ITS | Encounter Summary ---
:1970 [facility] Address [address] [address] Care Team Providers Name Role Phone Raulito Saez Yemi LUNDBERG CNP Primary Care Provider [phone] Reason for Visit Reason Comments Other Encounter Details Date Type Department Care Team Description 01/02/2008 Telephone [facility] john Villagran, Maegan Garcia, Other [address] [facility] [place] [address] [place] [phone] [place], [place] [address] (Wo rk) Social History Tobacco Use Types Packs/Day Years Used Date Smoking Tobacco: Never Assessed Sex Assigned at Date Recorded Not on file documented as of this encounter Progress Notes Center, Message - 01/02/2008 3:56 PM CDT Phone Note filed by [employer] at 01/06/11 274 Author: [employer] Service: (none) Author Type: (none) Filed: 01/06/111839 Note Time: 01/02/08 1556 Status: Signed Senior Network Security Engineer: [employer] Lab/Radiology Results Caller Name/Relationship:Hayden Primary Therapeutic Recreation Specialist:Alberto What test result is needed?lab results When and where was test done? 01/01/08/ [facility] Who ordered the test? alberto Cardiopulmonary Technologist Chief:patient Best call back number:[phone] Is it OK to leave a confidential message on this voicemail?yes *[id number] Created on 02Jan2008 3:56pm by JUNE ERNST On 02Jan2008 4:17pm MAEGAN VILLAGRAN wrote: Normal CBC, negative mono. Patient feeling better. Taking Augmentin for sinusitis. Acknowledged by MAEGAN VILLAGRAN on 4:17pm ORGAN TUNER AND REPAIRER documented in this encounter Plan of Treatment Not on filedocumented as of this encounter Visit Diagnoses Not on filedocumented in this encounter Care Teams Waistline Joiner Overlock Relationship Specialty Start Date End Date Raulito Saez, CLOTHES DESIGNER, CYTOLOGY TEACHER PCP - General 12/24/10 09/25/18 documented as of this encounter
--- OUTSIDE RECORDS SUMMARY | 2022-06-18 08:45 | XMS_ITS | Encounter Summary ---
:1970 Author Organization [facility] Address [address] [address] Care Team Providers Name Role Phone Laci Hall MD Primary Care Provider Encounter Details Date Type Department Care Team Description 02/11/2010 PN Conversion Only REAL ESTATE DEVELOPER [address] CONV Rick Limon MD [address] [facility] [address] [place] [address] (Wo rk) Social History Tobacco Use Types Packs/Day Years Used Date Smoking Tobacco: Never Assessed Sex Assigned at Date Recorded Not on file documented as of this encounter Plan of Treatment Not on filedocumented as of this encounter Procedures Procedure Name Priority Date/Time Associated Diagnosis Comme nts POST VASECTOMY Routine 02/11/2010 9:15 AM Results for this CHECK CDT procedure are i n the results section. POST VASECTOMY Routine 02/11/2010 9:15 AM Results for this MOTILITY CDT procedure are i n the results section. documented in this encounter Results Post Vasectomy Motility (02/11/2010 9:15 AM CDT) [facility] Method Time Signature Post Vasectomy see below No normal HP CONVERSION Motility range Comment: No motile sperm seen. Specimen (Source) Anatomical Collection Method Collection Time Re ceived Time Location / / Volume Laterality 02/11/2010 9:15 AM CDT Rick Limon MD LAB_1 Performing Organization Address City/State/ZIP Code Phon e Number HP CONVERSION POST VASECTOMY CHECK (02/11/2010 9:15 AM CDT) [facility] gist Method Time Signature Where Collected Off site No normal HP CONVERSION - Semen range Days of 2 days No normal HP CONVERSION Abstinence range Time Test 1,030 No normal HP CONVERSION Performed range Post Vasectomy See Note No normal HP CONVERSION Sperm Count range Comment: 1 sperm per slide. Performed on centrifuged specimen. Specimen (Source) Anatomical Collection Method Collection Time Re ceived Time Location / / Volume Laterality 02/11/2010 9:15 AM CDT Rick Limon MD LAB_1 Performing Organization Address City/[facility] Code Phon e Number HP CONVERSION documented in this encounter Visit Diagnoses Not on filedocumented in this encounter Care Teams Nurse Aide Evaluator Relationship Specialty Start Date End Date Laci Hall MD PCP - General 12/20/10 12/23/10 [address] [place] [address] documented as of this encounter
--- OUTSIDE RECORDS SUMMARY | 2022-06-18 08:45 | XMS_ITS | Encounter Summary ---
:1970 Author Organization [facility] Address [address] [address] Care Team Providers Name Role Phone Laci Hall MD Primary Care Provider Encounter Details Date Type Department Care Team Description 04/12/2008 Office Visit [facility] [place] [address] [place] [address] [place], [place] [address] (Wo rk) Social History Tobacco Use Types Packs/Day Years Used Date Smoking Tobacco: Never Assessed Sex Assigned at Date Recorded Not on file documented as of this encounter Last Filed Vital Signs Vital Sign Reading Time Taken Comments Blood Pressure 116/80 04/12/2008 10:00 AM CDT Pulse 56 04/12/2008 10:00 AM CDT Temperature - - Respiratory Rate - - Oxygen Saturation - - Inhaled Oxygen Concentration - - Weight 98.4 kg (216 lb 15.6 oz) 04/12/2008 10:00 AM C: 98.4kg CDT Height - - Body Mass Index 29.43 07/11/2007 2:54 PM CDT documented in this encounter Progress Notes Laci Hall MD - 04/12/2008 12:01 AM CDT Progress Notes signed by Laci Hall MD at 04/21/08 0319 Author: Laci Hall MD Service: (none) Author Type: Physician Filed: 01/09/11 0550 Note Time: 04/12/08 0001 Status: Signed Car Builder: Laci Hall MD (Physician) NAME: HAYDEN AMARO MR#: [id number] ACCT: [id number] VISIT: [id number] DICTATING CLINICIAN: Laci Hall MD CONFIRM #: [id number] LOC: 502 CLINIC PROGRESS NOTE DATE OF VISIT: 04/12/2008 SUBJECTIVE: Hayden is a 37-year-old gentleman here today for a rash that he says he has had intermittently for about the last 20 years. She says since he has been about 15 he has had problems with a rash on the back of his neck that he tends to get in the summertime. It is quite pruritic and a patch-like. It will fade over time, but it is always come back. He has tried hzgt-cnl-ddvtxnt hydrocortisone without any success in the past. He was recently speaking to some friends who are family physicians and they recommended that he be evaluated so he came in. He does report problems with other skin rashes, especially on the elbows and knees, which he uses lotion on, but have always been a problem for him. He has not had any new exposures. PAST MEDICAL HISTORY: Significant for asthma and allergies as well as reflux. ON PHYSICAL EXAM: VS: BP: 116/88. P: 56.Wt: 217. This is a young gentleman in no acute distress. Examination of his neck reveals a patch-like area of erythema that has a raised erythematous plaque with a fine whitish overlying scale and areas of significant excoriation surrounding it. Examination of his elbows reveal thicker plaques of erythema with a fine overlying whitish scale that does not appear to be a thick adherent silvery scale. In addition on his face, he has an area of erythema on his cheeks bilaterally with a fine overlying whitish scale. OBJECTIVE: ASSESSMENT: 1. A topic dermatitis. 2. Seborrheic dermatitis. PLAN: With respect to the rash on the elbows and the nape of the neck it certainly appears to be consistent with a topic dermatitis, especially given his past medical history with asthma and allergies. I am going to treat him with triamcinolone cream on his neck and elbows as well as his knees. For his face, I do believe that is more consistent with seborrheic dermatitis, but I am going to have him use his mild eqmb-cpr-xasfbyq hydrocortisone. If that is not improving I would switch that to a different agent. If he gets a more discrete salmon-colored plaque with a silvery scale and I describe it to him, he will return for re-evaluation and I would give consideration of diagnosis of psoriasis. At this point it is clinically much more likely to be a topic dermatitis and he will follow up as needed if he is not improving. DJS:[id number] C: 04/13/08 13:51 CONFIRM #: [id number] documented in this encounter Plan of Treatment Not on filedocumented as of this encounter Visit Diagnoses Not on filedocumented in this encounter Care Teams Dope Maintenance Worker Relationship Specialty Start Date End Date Laci Hall MD PCP - General 12/20/10 12/23/10 [address] [place] [address] documented as of this encounter
--- OUTSIDE RECORDS SUMMARY | 2022-06-18 08:45 | XMS_ITS | Encounter Summary ---
:1970 Author Organization [facility] Address [address] [address] Care Team Providers Name Role Phone Laci Hall MD Primary Care Provider Encounter Details Date Type Department Care Team Description 09/22/2010 PN Conversion Only [facility] [address] [place] [address] Social History Tobacco Use Types Packs/Day Years Used Date Smoking Tobacco: Never Assessed Sex Assigned at Date Recorded Not on file documented as of this encounter Plan of Treatment Not on filedocumented as of this encounter Visit Diagnoses Not on filedocumented in this encounter Care Teams Metal Drawer Relationship Specialty Start Date End Date Laci Hall MD PCP - General 12/20/10 12/23/[address] [place] [address] documented as of this encounter
--- OUTSIDE RECORDS SUMMARY | 2022-06-18 08:45 | XMS_ITS | Encounter Summary ---
:1970 Author Organization [employer] Address [address], [place] [address] Care Team Providers Name Role Phone Laci Hall MD Primary Care Provider Encounter Details Date Type Department Care Team Description 06/13/2009 Nursing Visit [facility] Alexander Damico MD [facility] [address] [address] [place] [address] [place] [address] [phone] Social History Tobacco Use Types Packs/Day Years Used Date Smoking Tobacco: Never Assessed Sex Assigned at Date Recorded Not on file documented as of this encounter Plan of Treatment Not on filedocumented as of this encounter Visit Diagnoses Not on filedocumented in this encounter Care Teams Jig Hand Relationship Specialty Start Date End Date Laci Hall MD PCP - General 12/20/10 12/23/[address] [place] [address] documented as of this encounter
--- OUTSIDE RECORDS SUMMARY | 2022-06-18 08:45 | XMS_ITS | Encounter Summary ---
:1970 Author Organization [employer] Address [address] [address] Care Team Providers Name Role Phone Laci Hall MD Primary Care Provider Encounter Details Date Type Department Care Team Description 09/22/2010 Nursing Visit [facility] [place] [id number] [place] [phone] (Wo rk) Social History Tobacco Use Types Packs/Day Years Used Date Smoking Tobacco: Never Assessed Sex Assigned at Date Recorded Not on file documented as of this encounter Last Filed Vital Signs Vital Sign Reading Time Taken Comments Blood Pressure 116/78 09/22/2010 8:54 AM UMBRELLA TIPPER HAND Pulse - - Temperature - - Respiratory Rate - - Oxygen Saturation - - Inhaled Oxygen Concentration - - Weight 98.4 kg (216 lb 15.6 oz) 09/22/2010 8:54 AM C: 9 8.4kg UMBRELLA TIPPER HAND Height 184.2 cm (6' 0.5) 09/22/2010 8:54 AM C: 184.2cm UMBRELLA TIPPER HAND Body Mass Index 29.02 09/22/2010 8:54 AM UMBRELLA TIPPER HAND documented in this encounter Plan of Treatment Not on filedocumented as of this encounter Visit Diagnoses Not on filedocumented in this encounter Care Teams Director Sanitation Bureau Relationship Specialty Start Date End Date Laci Hall MD PCP - General 12/20/10 12/23/10 [address] [place] [address] documented as of this encounter
--- OUTSIDE RECORDS SUMMARY | 2022-06-18 08:45 | XMS_ITS | Encounter Summary ---
:1970 Author Organization [employer] Address [address], [place] [address] Care Team Providers Name Role Phone Laci Hall MD Primary Care Provider Encounter Details Date Type Department Care Team Description 01/01/2008 Office Visit [facility] Yasmine Gupta, [address] [facility] [place], [place] [address] [facility] [phone] [place], [place] [address] (Wo rk) Social History Tobacco Use Types Packs/Day Years Used Date Smoking Tobacco: Never Assessed Sex Assigned at Date Recorded Not on file documented as of this encounter Last Filed Vital Signs Vital Sign Reading Time Taken Comments Blood Pressure 114/74 01/01/2008 11:51 AM CDT Pulse 72 01/01/2008 11:51 AM CDT Temperature 37.1 ??C (98.8 ??F) 01/01/2008 11:51 AM C: 37.1 C CDT Respiratory Rate - - Oxygen Saturation - - Inhaled Oxygen Concentration - - Weight 99.6 kg (219 lb 9.3 oz) 01/01/2008 11:51 AM C: 9 9.6kg CDT Height - - Body Mass Index 29.78 07/11/2007 2:54 PM CDT documented in this encounter Progress Notes Yasmine Zuñiga MD - 01/01/2008 12:01 AM CDT Progress Notes signed by Yasmine Zuñiga MD at 01/02/08 0913 Author: Yasmine Zuñiga MD Service: (none) Author Type: Physician Filed: 01/09/11 0318 Note Time: 01/01/08 0001 Status: Signed Meat Slicer: Yasmine Zuñiga MD (Physician) NAME: HAYDEN AMARO MR#: [id number] ACCT: [id number] VISIT: [id number] DICTATING CLINICIAN: Yasmine Zuiñga MD JOB: [id number] LOC: 502 CLINIC PROGRESS NOTE DATE OF VISIT: 01/01/2008 SUBJECTIVE: Patient is a 37-year-old male who presents after becoming ill 3 days ago. Patient had fever to 103 or 105 with diaphoresis, headache for 2 days, enlarged and swollen lymph nodes anteriorly, myalgias, fatigue, sore throat, nasal congestion, and maxillary sinus pain with postnasal drip. He has tried to maintain hydration with water, but still feels dry. He also feels some dysequilibrium. is presenting similar symptoms. He has tried Tylenol and Sudafed with some help. Patient has a history of chronic sinusitis and nasal polyps, status post resection. He actually feels a little bit better today. He is a nonsmoker. Interestingly, patient was diagnosed with influenza type A last month, despite being vaccinated this season. PAST MEDICAL HISTORY: Allergic rhinitis, asthma, GERD. MEDICATIONS: Reviewed and updated in [employer]. ADR/ALLERGIES: LEVAQUIN AND PREDNISONE WERE INVOLVED IN INTERNAL BLEEDING IN THE PAST. OBJECTIVE: VS: T: 98.8. P: 72. BP: 114/74. Wt: 219.6 lb. GENERAL: Well-nourished, well-developed male in no acute distress. SKIN: Somewhat clammy. HEENT: NCAT. TMs clear without erythema or purulence. Nasal mucosa erythematous and inflamed, purulent discharge in the right naris. Oropharynx with erythema, no enlarged tonsils, positive postnasal drip. Mucous membranes moist. NECK: Supple with anterior lymphadenopathy. HEART: Regular rate and rhythm, no murmur. LUNGS: Clear to auscultation. ABDOMEN: Soft, nontender with normal bowel sounds. No hepatosplenomegaly. ASSESSMENT: A 37-year-old male with acute sinusitis and probable viral syndrome. Will use Augmentin XR 2 tablets b.i.d. for 10 days, as this has worked well in the past. Continue Tylenol, fluids, Sudafed, rest, and hygiene, etc. If fevers recur or symptoms worsen, should probably be seen in the emergency room or urgent care. I did send off a CBC and mono spot today. PLAN: See Assessment. [facility]:[id number] C: 01/01/08 19:43 DOCUMENT: [id number] documented in this encounter Plan of Treatment Not on filedocumented as of this encounter Visit Diagnoses Not on filedocumented in this encounter Care Teams Plastic Finisher Relationship Specialty Start Date End Date Laci Hall MD PCP - General 12/20/10 12/23/10 [address] [place] [address] documented as of this encounter
--- OUTSIDE RECORDS SUMMARY | 2022-06-18 08:45 | XMS_ITS | Encounter Summary ---
:1970 Author Organization [facility] Address [address] [address] Care Team Providers Name Role Phone Nasrin Elliott APRN, HAND CROCHETER Primary Care Provider [phone] Reason for Visit Reason Comments Other Encounter Details Date Type Department Care Team Description 06/23/2009 Telephone [facility] Kyra Badillo LPN Other [address] [place] [address] Social History Tobacco Use Types Packs/Day Years Used Date Smoking Tobacco: Never Assessed Sex Assigned at Date Recorded Not on file documented as of this encounter Progress Notes Center, Message - 06/23/2009 7:34 AM CDT Phone Note filed by [employer] at 01/08/11 3514 Author: [employer] Service: (none) Author Type: (none) Filed: 01/08/111338 Note Time: 06/23/09 07 Status: Signed Treatment Coordinator: [employer] (Resource) RAD RESULTS AVAIL IN LW; US RUQ Created on 23Jun2009 7:34am by BRYSON MARTÍNEZ On 23Jun2009 11:10am NASRIN ELLIOTT wrote: called, normal results given, will follow up if not resolving. Acknowledged by NASRIN ELLIOTT on 11:10am Acknowledged by KYRA BADILLO on 11:25am GRINDER MACHINE documented in this encounter Plan of Treatment Not on filedocumented as of this encounter Visit Diagnoses Not on filedocumented in this encounter Care Teams Airplane Cabin Attendant Relationship Specialty Start Date End Date Nasrin Elliott, GUEST SERVICES LEAD, HAND CROCHETER PCP - General 12/24/10 09/25/18 documented as of this encounter
--- OUTSIDE RECORDS SUMMARY | 2022-06-18 08:45 | XMS_ITS | Encounter Summary ---
:1970 Author Organization [employer] Address [address] [address] Care Team Providers Name Role Phone Laci Hall MD Primary Care Provider Encounter Details Date Type Department Care Team Description 06/20/2009 PN Conversion Only [facility] [address] [place] [address] Social History Tobacco Use Types Packs/Day Years Used Date Smoking Tobacco: Never Assessed Sex Assigned at Date Recorded Not on file documented as of this encounter Plan of Treatment Not on filedocumented as of this encounter Procedures Procedure Name Priority Date/Time Associated Diagnosis Comme nts US ABD RUQ ORGANS Routine 06/20/2009 10:20 AM Res ults for this CDT procedure are i n the results section. documented in this encounter Results US Abd RUQ Organs (06/20/2009 10:20 AM CDT) Anatomical Region Laterality Modality Abdomen Other Specimen (Source) Anatomical Location Collection Method / Collectio n Time Received Time / Laterality Volume Impressions 06/20/2009 10:20 AM CDT : ?? Normal right upper quadrant ultrasound ??. Dictating SAQIB BORDEN Radiologist Narrative 06/20/2009 10:20 AM CDT COMPARISON: ??None. FINDINGS: ?? The head and body of the pa ncreas are normal. ??The tail is obscured by bowel gas ??. ?? The live r demonstrates normal echotexture without focal abnormality, i ntrahepatic duct dilation, or ascites ??. ?? The gallbladder is normal ??. ??The extrahepatic common duct measures 5 mm, ??within normal limi ts ??. ??The right kidney measures 12. cm in length, ??normal ??. ?? There is no evidence of stone, mass, or hydronephrosis ??. Procedure Note Saqib Byrd MD - 03/05/2016For matting of this note might be different from the original. COMPARISON: None. FINDINGS: The head and body of the pancr eas are normal. The tail is obscured by bowel gas . The liver dem onstrates normal echotexture without focal abnormality, i ntrahepatic duct dilation, or ascites . The gallbladder is normal . Th e extrahepatic common duct measures 5 mm, within normal limits . The right kidney measures 12. cm in length, normal . Ther e is no evidence of stone, mass, or hydronephrosis . IMPRESSION : Normal right upper quadrant ultrasound . Dictating SAQIB BORDEN Radiologist Raulito W Nadja BAG ADJUSTER, PACKAGE LINE OPERATOR RAD US documented in this encounter Visit Diagnoses Not on filedocumented in this encounter Care Teams Law Researcher Relationship Specialty Start Date End Date Laci Hall MD PCP - General 12/20/10 12/23/10 [address] [address] [place] [address] documented as of this encounter
--- OUTSIDE RECORDS SUMMARY | 2022-06-18 08:45 | XMS_ITS | Encounter Summary ---
:1970 Author Organization [facility] Address [address] [address] Care Team Providers Name Role Phone Raulito Saez Yemi LUNDBERG CNP Primary Care Provider [phone] Reason for Visit Reason Comments Other Encounter Details Date Type Department Care Team Description 08/13/2008 Telephone [facility] [address] [place], Message Other [address] [place], [place] [address] Social History Tobacco Use Types Packs/Day Years Used Date Smoking Tobacco: Never Assessed Sex Assigned at Date Recorded Not on file documented as of this encounter Progress Notes Center, Message - 08/13/2008 10:49 AM CST Phone Note filed by [employer] at 01/07/11 4102 Author: [employer] Service: (none) Author Type: (none) Filed: 01/07/11 1116 Note Time: 08/13/08 1049 Status: Signed Associate Software Developer: [employer] Prescription Refill Please provide enough refills to last until patient's next visit. Comment:-Last appt 02-24-08; next 09-03-08 Pharmacy Seq #:-[phone] [facility] [phone] [facility]Yasmin [facility] Name/Strength:-Proventil HFA Aer Sig: Dose/Route/Freq:-2 puffs every 4 hr prn Quantity & Last Fill:-#9 09-25-08 Created on 13Aug2008 10:49am by LUC LAZO On 13Aug2008 11:26am CHANCE AGUAYO wrote: Rx faxed per standing order. VERY MOTORCYCLE DRIVER documented in this encounter Plan of Treatment Not on filedocumented as of this encounter Visit Diagnoses Not on filedocumented in this encounter Care Teams Kai [place] Relationship Specialty Start Date End Date Raulito Saez, SITE OPERATIONS MANAGER, BAKERY HELPER PCP - General 12/24/10 09/25/18 documented as of this encounter
--- OUTSIDE RECORDS SUMMARY | 2022-06-18 08:45 | XMS_ITS | Encounter Summary ---
:1970 Author Organization [employer] Address [address] [address] Care Team Providers Name Role Phone Laci Hall MD Primary Care Provider Encounter Details Date Type Department Care Team Description 12/24/2007 Office Visit [facility] [address] [address] [place], [place] [id number] Social History Tobacco Use Types Packs/Day Years Used Date Smoking Tobacco: Never Assessed Sex Assigned at Date Recorded Not on file documented as of this encounter Last Filed Vital Signs Vital Sign Reading Time Taken Comments Blood Pressure 125/66 12/24/2007 8:20 AM CDT Pulse 58 12/24/2007 8:20 AM CDT Temperature 36.7 ??C (98.1 ??F) 12/24/2007 8:20 AM CDT C: 36 .7 C Respiratory Rate 20 12/24/2007 8:20 AM CDT Oxygen Saturation - - Inhaled Oxygen Concentration - - Weight - - Height - - Body Mass Index - - documented in this encounter Progress Notes Sree Dallas MD - 12/24/2007 12:01 AM CDT Progress Notes signed by Sree Dallas MD at 01/01/082035 Author: rSee Dallas MD Service: (none) Author Type: Physician Filed: 01/09/11 6482 Note Time: 12/24/07 0001 Status: Signed Cross Country And Track And Field Coach: Sree Dallas MD (Physician) NAME: HAYDEN AMARO MR#: [id number] ACCT: [id number] VISIT: [id number] DICTATING CLINICIAN: Sree Dallas MD JOB: [id number] LOC: 520 CLINIC PROGRESS NOTE DATE OF VISIT: 12/24/2007 SUBJECTIVE: : 1970. Patient is a 37-year-old who jammed his 3rd finger yesterday. He states he does not have much feeling in the distal tip of the finger as well. It is more crushed than jammed. MEDICATIONS: Reviewed. He does have asthma. He is on Advair and Proventil. His primary doctor is Dr. Hall. There is a history otherwise of allergies. ADR/ALLERGIES: ALLERGIC WELL, HE STATES TO LEVAQUIN, WHICH CAUSED INTERNAL BLEEDING DID PREDNISONE. OBJECTIVE: VS: BP: 125/66. T: 98.1. P: 58. R: 20. Examination of this patient with a tender DIP joint to the 3rd finger of his left hand. He states there is no feeling in the fingertip. X-ray shows probable chip fracture of that joint. Not out of position. ASSESSMENT: Probable fractured finger. PLAN: Finger splint, cool packs. Patient discussed the numbness involved. I suspect this is secondary to the crush injury and most likely most of the feeling would return in the next 3 weeks. Follow up in 5 to 7 days. DRL:[id number] C: 12/25/07 11:04 DOCUMENT: [id number] documented in this encounter Plan of Treatment Not on filedocumented as of this encounter Procedures Procedure Name Priority Date/Time Associated Diagnosis Comme nts XR FINGER LT MIDDLE Routine 12/24/2007 8:42 AM Re sults for this 2+ VIEWS CDT procedure are i n the results section. documented in this encounter Results XR Finger Lt Middle 3 Views (12/24/2007 8:42 AM CDT) Anatomical Region Laterality Modality Upper Extremity, Hand Other Specimen (Source) Anatomical Location Collection Method / Collectio n Time Received Time / Laterality Volume Narrative 12/24/2007 8:42 AM CDT There is an undisplaced fracture at the radial base of the distal phalanx. ??No other fractures or bone ab normalities. [facility]/ [address] Dictating ANGELA KUO RADIOLOGIST Procedure Note Angela Wells - 11/18/2016Formattin g of this note might be different from the original. There is an undisplaced fracture at the radial base of the distal phalanx. No other fractures or bone abno rmalities. [facility]/ [address] Dictating ANGELA KUO RADIOLOGIST Sree Dallas MD RAD GD documented in this encounter Visit Diagnoses Not on filedocumented in this encounter Care Teams Counselor Marriage And Family Relationship Specialty Start Date End Date Laci Hall MD PCP - General 12/20/10 12/23/10 [address] [address] [place] [address] documented as of this encounter
--- OUTSIDE RECORDS SUMMARY | 2022-06-18 08:45 | XMS_ITS | Encounter Summary ---
:1970 Author Organization [facility] Address [address], [place] [address] Care Team Providers Name Role Phone Laci Hall MD Primary Care Provider Encounter Details Date Type Department Care Team Description 01/01/2008 PN Conversion Only Yasmine Fletcher [address] [facility] [place] [address] [facility] [address] [place] [address] (Wo rk) Social History Tobacco Use Types Packs/Day Years Used Date Smoking Tobacco: Never Assessed Sex Assigned at Date Recorded Not on file documented as of this encounter Plan of Treatment Not on filedocumented as of this encounter Procedures Procedure Name Priority Date/Time Associated Comments Diagnosis MONONUCLEOSIS SCREEN Routine 01/01/2008 12:18 Res ults for this PM CDT procedure are i n the results section. COMPLETE BLOOD Routine 01/01/2008 12:18 Results f or this COUNT-W/DIFF PM CDT procedure are i n the results section. documented in this encounter Results Mononucleosis Screen (01/01/2008 12:18 PM CDT) [facility] Method Time Signature Infectious Negative Negative HP CONVERSION Mononucleosis Screen Specimen (Source) Anatomical Collection Method Collection Time Re ceived Time Location / / Volume Laterality 01/01/2008 12:18 PM CDT Yasmine Zuñiga MD LAB_1 Performing Organization Address City/[facility] Code Phon e Number HP CONVERSION (ABNORMAL) Complete Blood Count-W/Diff (01/01/2008 12:18 PM CDT) [facility] gist Method Time Signature White Blood Cell 10.2 3.8 - 11.0 HP CONVERSIO N Count K/cmm Red Blood Cell 5.21 4.20 - HP CONVERSION Count 5.90 m/cmm Hemoglobin 15.7 13.4 - HP CONVERSION 17.5 gm/dL Hematocrit 46.0 39.0 - HP CONVERSION 51.0 % Mean Corpuscular 88.3 80.0 - HP CONVERSION Volume 100.0 fl Mean Corpuscular 30.1 27.0 - HP CONVERSION Hemoglobin 34.0 pg Mean Corpuscular 34.1 32.0 - HP CONVERSION Hemoglobin Conc 36.5 gm/dL Douglas RDW 12.3 11.0 - HP CONVERSION 15.0 % Platelet Count 295 140 - 450 HP CONVERSION k/cmm Differential Auto-Dif No normal HP CONVERSION Verify range Neutrophils 7.3 2.0 - 7.5 HP CONVERSION Absolute Count K/cmm Neutrophil 71.6 50.0 - HP CONVERSION 75.0 % Lymphocyte % 14.9 (L) 20.0 - HP CONVERSION 40.0 % Monocyte 10.0 5.0 - 14.0 HP CONVERSION % Eosinophil 2.9 0.0 - 6.0 HP CONVERSION % Basophil % 0.6 0.0 - 2.0 HP CONVERSION % Specimen (Source) Anatomical Collection Method Collection Time Re ceived Time Location / / Volume Laterality 01/01/2008 12:18 PM CDT Yasmine Zuñiga MD LAB_1 Performing Organization Address City/[facility] Phon e Number HP CONVERSION documented in this encounter Visit Diagnoses Not on filedocumented in this encounter Care Teams Java Integration Developer Relationship Specialty Start Date End Date Laci Hall MD PCP - General 12/20/10 12/23/[address] [place] [address] documented as of this encounter
--- OUTSIDE RECORDS SUMMARY | 2022-06-18 08:45 | XMS_ITS | Encounter Summary ---
:1970 Author Organization [facility] Address [address], [place] [address] Care Team Providers Name Role Phone Laci Hall MD Primary Care Provider Encounter Details Date Type Department Care Team Description 07/09/2008 Office Visit [facility] [place] [address] [place] [address] [place], [place] [address] (Wo rk) Social History Tobacco Use Types Packs/Day Years Used Date Smoking Tobacco: Never Assessed Sex Assigned at Date Recorded Not on file documented as of this encounter Last Filed Vital Signs Vital Sign Reading Time Taken Comments Blood Pressure 110/80 07/09/2008 2:59 PM CDT Pulse 60 07/09/2008 2:59 PM CDT Temperature - - Respiratory Rate - - Oxygen Saturation - - Inhaled Oxygen Concentration - - Weight 100.2 kg (220 lb 15.8 07/09/2008 2:59 PM C: 100. 2kg oz) CDT Height - - Body Mass Index 29.97 07/11/2007 2:54 PM CDT documented in this encounter Progress Notes Laci Hall MD - 07/09/2008 12:01 AM CDT Progress Notes signed by Laci Hall MD at 07/09/08 9913 Author: Laci Hall MD Service: (none) Author Type: Physician Filed: 01/09/11 0755 Note Time: 07/09/08 0001 Status: Signed Director Corporate Sales: Laci Hall MD (Physician) NAME: HAYDEN AMARO MR#: [id number] ACCT: [id number] VISIT: [id number] DICTATING CLINICIAN: Laci Hall MD CONFIRM #: [id number] LOC: 502 CLINIC PROGRESS NOTE DATE OF VISIT: 07/09/2008 SUBJECTIVE: Hayden is a 37-year-old gentleman here today for hair loss. He has a past medical history significant for significant allergies. He has trouble with nasal, respiratory, and skin issues including eczematous eruptions. He uses Advair, Proventil, Nasacort, and triamcinolone and he is now undergoing immunotherapy for his allergies. He states that about 2 weeks ago he started noticing clumps of hair on his pillow. He noticed discrete patches of hair loss in the mirror on the top of his head. He does identify this as being associated with the onset of his immunotherapy. OBJECTIVE: VS: BP: 110/80. P: 60. Wt: 221. This is a young gentleman in no acute distress. Examination reveals 2 discrete patches of hair loss that are approximately 2 to 2-1/2 cm in greatest diameter. There are some exclamation point hairs within the center that are fragile and broken but there are fairly discrete areas of hair loss on the top of his head. ASSESSMENT: Alopecia. PLAN: It is difficult for me to say whether this is definitely related to his immunotherapy, but I did go over possible etiologies with him. I am going to go ahead and check an RPR and a TSH. In the meantime, I am going to use a potent topical corticosteroid. Have him make an appointment with Dermatology to see if he has improvement from the topical steroid. If not, he may need intralesional corticosteroid injection. He understands that and will follow up as needed. DJS:[id number] C: 07/09/08 15:47 CONFIRM #: [id number] documented in this encounter Plan of Treatment Not on filedocumented as of this encounter Visit Diagnoses Not on filedocumented in this encounter Care Teams Manager Mba Relationship Specialty Start Date End Date Laci Hall MD PCP - General 12/20/10 12/23/10 [address] [place] [id number] documented as of this encounter
--- OUTSIDE RECORDS SUMMARY | 2022-06-18 08:45 | XMS_ITS | Encounter Summary ---
:1970 Author Organization [facility] Address [address] [address] Care Team Providers Name Role Phone Laci Hall MD Primary Care Provider Encounter Details Date Type Department Care Team Description 07/28/2009 PN Conversion Only COMMERCIAL SPECIALIST 3800 CONV Rick Limon MD 3800 [facility] [address] [place] [address] (Wo rk) Social History Tobacco Use Types Packs/Day Years Used Date Smoking Tobacco: Never Assessed Sex Assigned at Date Recorded Not on file documented as of this encounter Plan of Treatment Not on filedocumented as of this encounter Procedures Procedure Name Priority Date/Time Associated Diagnosis Comme nts POST VASECTOMY Routine 07/28/2009 11:35 AM Result s for this CHECK CIVIL DEFENSE DIRECTOR procedure are i n the results section. documented in this encounter Results POST VASECTOMY CHECK (07/28/2009 11:35 AM CIVIL DEFENSE DIRECTOR) [facility] gist Method Time Signature Time collected- 1,030 Hours HP CONVERSION SEMEN, POC Where Collected Off Site No normal HP CONVERSION - Semen range Time Received 1,133 Hours HP CONVERSION Time Test 1,135 Hours HP CONVERSION Performed Days of 3 Days HP CONVERSION Abstinence Sperm/Slide 8 No normal HP CONVERSION Spun range Post Vasectomy 0 % HP CONVERSION Motility Specimen (Source) Anatomical Collection Method Collection Time Re ceived Time Location / / Volume Laterality 07/28/2009 11:35 AM CIVIL DEFENSE DIRECTOR Rick Limon MD LAB_1 Performing Organization Address City/State/ZIP Code Phon e Number HP CONVERSION documented in this encounter Visit Diagnoses Not on filedocumented in this encounter Care Teams Tie Up Worker Relationship Specialty Start Date End Date Laci Hall MD PCP - General 12/20/10 12/23/[address] [place] [address] documented as of this encounter
--- OUTSIDE RECORDS SUMMARY | 2022-06-18 08:45 | XMS_ITS | Encounter Summary ---
:1970 Author Organization [facility] Address [address] [address] Care Team Providers Name Role Phone Laci Hall MD Primary Care Provider Encounter Details Date Type Department Care Team Description 10/04/2008 Office Visit [place] [address] Ear, Sera Larsen MD Nose, and Throat [address] [place] [address] [phone] Social History Tobacco Use Types Packs/Day Years Used Date Smoking Tobacco: Never Assessed Sex Assigned at Date Recorded Not on file documented as of this encounter Progress Notes Sera Larsen MD - 10/04/2008 12:01 AM CST Progress Notes signed by Sera Larsen MD at 10/04/081954 Author: Sera Larsen MD Service: (none) Author Type: Physician Filed: 01/09/11 1004 Note Time: 10/04/082010 Status: Signed General Merchandise Manager: Sera Larsen MD (Physician) NAME: HAYDEN AMARO MR#: [id number] ACCT: [id number] VISIT: [id number] DICTATING CLINICIAN: SERA LARSEN MD CONFIRM #: [id number] LOC: 428 CLINIC PROGRESS NOTE DATE OF VISIT: 10/04/2008 SUBJECTIVE: CHIEF COMPLAINT: Sinusitis. HISTORY: The patient has had a long history of nasal sinus infection, nasal and sinus problems, and nasal polyps. I am seeing him at the request of Dr. Copeland. He states he has had 3 previous endoscopic sinus surgeries and polypectomies. In addition to this, he has had a septoplasty and turbinate reduction performed concurrently with his first surgery. These were all performed in [place]. His last operation was 4 years ago. Over the intervening time he has had progressive facial pain, nasal obstruction uchcn-lhdjjax-nyam-left, foul and discolored mucus drainage, poor sense of smell, and some fatigue. He has had no problems with fever, vision, or severe headache. He also has a history of asthma and allergy. He says that he has some watery drainage that is beer-colored from the left side. MEDICATIONS: Include Nasacort, Advair, Proventil, clobetasol, and triamcinolone cream. ADR/ALLERGIES: HE REPORTS AN ALLERGY TO LEVAQUIN AND PREDNISONE. SOCIAL HISTORY: Nonsmoker. REVIEW OF SYSTEMS: Positive for fatigue and facial pain. Negative for weight loss, easy bleeding, bruising, or night sweats. No history of heartburn. No easy bleeding or bruising. OBJECTIVE: His cranial and facial anatomy are symmetric. His cranial nerves 2 through 12 tested are intact and symmetric including extraocular movements, pupils and facial strength. The external ears are normally formed. Canals clear. Translucent and mobile TMs. Periauricular soft tissues, mastoid, TMJ and sinuses nontender to palpation. No scars or deformity to his face, no scalp or neck. Lips, gingiva, dentition are normal. Tonsils are small. Uvula surgically absent. Pharyngeal evans are normal. Tongue, floor of mouth, dentition, gingiva, buccal mucosa and lips are normal. Salivary glands without enlargement. Trachea midline. No thyromegaly. Vocal quality is normal. NASAL RHINOSCOPY: Anterior exam shows the septum is midline anteriorly. Slight widening into the mid aspect on the left side. Turbinates are enlarged inferiorly. A large polyp seen in the right nasal passage blocking the upper nasal vault. NASAL ENDOSCOPY: Indicated to evaluate previous surgical changes and the extent of nasal polyps. Verbal informed consent was obtained from the patient. Topical lidocaine 4% and Humble-Synephrine 4% applied to both nasal cavities. The flexible scope was passed on each side. Inferior turbinates are enlarged. The septum does deviate slightly in the upper aspect of the left side. There is a large polyp filling the nasal cavity on the right. Middle turbinate is difficult to discern due to the polyp size. The scope was passed posteriorly. There is polyp tissue in his sphenoethmoid recess and some discolored mucus posteriorly. On the left side, the sinuses are largely clear. Maxillary and ethmoid sinuses are easily scoped with no polyp tissue. Large inferior turbinate. ASSESSMENT: 1. Chronic sinusitis with nasal polyposis. 2. Turbinate hypertrophy. 3. Deviated septum. PLAN: I discussed with Hayden that his history of recurrent polyps and the exam findings today show chronic and refractory sinusitis and nasal polyps. He also has asthma, and I believe he has allergy problems as well. I discussed surgery as the most reasonable route to remove the large, bulky polyp disease. He has complete opacification of his right frontal, sphenoid, ethmoid, and maxillary sinuses. The left side is largely clear. I would possibly recommend a septoplasty. I would also address the turbinate hypertrophy inferiorly. Risks and complications of surgery were discussed. With a fourth operation for revision polyps, I recommend CT image guidance. Risks of intracranial injury, CSF leak, ocular injury, vision loss, double vision and numbness to the face were all discussed. There is some concern for left-sided CSF leak as may be occurring now as described by his very clear to beer-colored drainage on the left side; however, this may be circulating through the choana on the opposite side. He will contact my armature bander if he would like to proceed. Medications were not changed today. CC: ALLEGRA COPELAND MD MCAlvin:[id number] C: 10/04/08 16:20 CONFIRM #: [id number] RMATICS SPECIALIST documented in this encounter Plan of Treatment Not on filedocumented as of this encounter Visit Diagnoses Not on filedocumented in this encounter Care Teams Metal Lather Relationship Specialty Start Date End Date Laci Hall MD PCP - General 12/20/10 12/23/10 [address] [place] [address] documented as of this encounter
--- OUTSIDE RECORDS SUMMARY | 2022-06-18 08:45 | XMS_ITS | Encounter Summary ---
:1970 Author Organization [facility] Address [address] [address] Care Team Providers Name Role Phone Raulito Saez TOÑO, ORNAMENTAL RAIL INSTALLER Primary Care Provider [phone] Reason for Visit Reason Comments Other Encounter Details Date Type Department Care Team Description 10/17/2008 Telephone [facility] 3800 Ear, Rebeca on, Other Nose, and Throat Ryan Garber RN [address] [facility] [address] [place] [address] Social History Tobacco Use Types Packs/Day Years Used Date Smoking Tobacco: Never Assessed Sex Assigned at Date Recorded Not on file documented as of this encounter Progress Notes Ryan Maria RN - 10/17/2008 10:56 AM CST Phone Note filed by Ryan Maria RN at 01/07/11 9066 Author: Ryan Maria RN Service: (none) Author Type: (none) Filed: 01/07/11 7211 Note Time: 10/17/08 1056 Status: Signed Lead Recoverer: Karina Conversion Pt calling to request an antibiotic for current sinus infection. Pt was in last week. Discussed possible surgery. ADR's: Levofloxacin, Prednisone. Please advise. Uses [facility] in [place]. [phone]. Created on 17Oct2008 10:56am by RYAN WAKEFIELD On 17Oct2008 12:20pm SERA LARSEN wrote: biaxin 500 bid 14 days, 1 refill if needed. Acknowledged by SERA LARSEN on 12:20pm On 17Oct2008 1:35pm RYAN WAKEFIELD wrote: Script faxed as ordered to pt pharmacy. Pt called and updated. Acknowledged by RYAN WAKEFIELD on 1:35pm [employer] documented in this encounter Plan of Treatment Not on filedocumented as of this encounter Visit Diagnoses Not on filedocumented in this encounter Care Teams Sales Trainer Relationship Specialty Start Date End Date Raulito Saez, SPAR FINISHER, ORNAMENTAL RAIL INSTALLER PCP - General 12/24/10 09/25/18 documented as of this encounter
--- OUTSIDE RECORDS SUMMARY | 2022-06-18 08:45 | XMS_ITS | Encounter Summary ---
:1970 Author Organization [facility] Address [address], [place] [address] Care Team Providers Name Role Phone Laci Hall MD Primary Care Provider Encounter Details Date Type Department Care Team Description 10/17/2009 PN Conversion Only PAPER PROCESSING MACHINE HELPER 3800 CONV Rick Limon MD 3800 [facility] [address] [place] [address] (Wo rk) Social History Tobacco Use Types Packs/Day Years Used Date Smoking Tobacco: Never Assessed Sex Assigned at Date Recorded Not on file documented as of this encounter Plan of Treatment Not on filedocumented as of this encounter Procedures Procedure Name Priority Date/Time Associated Diagnosis Comme nts POST VASECTOMY Routine 10/17/2009 8:50 AM Results for this CHECK JOB LITHOGRAPHER procedure are i n the results section. documented in this encounter Results POST VASECTOMY CHECK (10/17/2009 8:50 AM JOB LITHOGRAPHER) [facility] Method Time Signature Time collected- 850 Hours HP CONVERSION SEMEN, POC Where Collected Off Site No normal HP CONVERSION - Semen range Time Received 950 Hours HP CONVERSION Time Test 1,000 Hours HP CONVERSION Performed Days of 3 Days HP CONVERSION Abstinence Sperm/Slide 1 No normal HP CONVERSION Spun range Post Vasectomy 0 % HP CONVERSION Motility Specimen (Source) Anatomical Collection Method Collection Time Re ceived Time Location / / Volume Laterality 10/17/2009 8:50 AM JOB LITHOGRAPHER Rick Limon MD LAB_1 Performing Organization Address City/State/ZIP Code Phon e Number HP CONVERSION documented in this encounter Visit Diagnoses Not on filedocumented in this encounter Care Teams Day Care Worker Relationship Specialty Start Date End Date Laci Hall MD PCP - General 12/20/10 12/23/[address] [place] [place] [address] documented as of this encounter
--- OUTSIDE RECORDS SUMMARY | 2022-06-18 08:45 | XMS_ITS | Encounter Summary ---
:1970 Author Organization [facility] Address [address] [address] Care Team Providers Name Role Phone Laci Hall MD Primary Care Provider Encounter Details Date Type Department Care Team Description 12/18/2010 PN Conversion Only [facility] [address] [address] [place] [address] Social History Tobacco Use Types Packs/Day Years Used Date Smoking Tobacco: Never Assessed Sex Assigned at Date Recorded Not on file documented as of this encounter Plan of Treatment Not on filedocumented as of this encounter Visit Diagnoses Not on filedocumented in this encounter Care Teams Pleat Patternmaker Relationship Specialty Start Date End Date Laci Hall MD PCP - General 12/20/10 12/23/[address] [place] [address] documented as of this encounter
--- OUTSIDE RECORDS SUMMARY | 2022-06-18 08:45 | XMS_ITS | Encounter Summary ---
:1970 Author Organization [facility] Address [address] [address] Care Team Providers Name Role Phone Laci Hall MD Primary Care Provider Encounter Details Date Type Department Care Team Description 01/08/2010 PN Conversion Only STORY ANALYST 3800 CONV Rick Limon MD 3800 [facility] [address] [place] [address] (Wo rk) Social History Tobacco Use Types Packs/Day Years Used Date Smoking Tobacco: Never Assessed Sex Assigned at Date Recorded Not on file documented as of this encounter Plan of Treatment Not on filedocumented as of this encounter Procedures Procedure Name Priority Date/Time Associated Diagnosis Comme nts POST VASECTOMY Routine 01/08/2010 8:15 AM Results for this CHECK CDT procedure are i n the results section. POST VASECTOMY Routine 01/08/2010 8:15 AM Results for this MOTILITY CDT procedure are i n the results section. documented in this encounter Results Post Vasectomy Motility (01/08/2010 8:15 AM CDT) [facility] Method Time Signature Post Vasectomy see below No normal HP CONVERSION Motility range Comment: No motile sperm seen. Specimen (Source) Anatomical Collection Method Collection Time Re ceived Time Location / / Volume Laterality 01/08/2010 8:15 AM CDT Rick Limon MD LAB_1 Performing Organization Address City/State/ZIP Code Phon e Number HP CONVERSION POST VASECTOMY CHECK (01/08/2010 8:15 AM CDT) [facility] gist Method Time Signature Where Collected Off site No normal HP CONVERSION - Semen range Days of 3 days No normal HP CONVERSION Abstinence range Time Test 0950 No normal HP CONVERSION Performed range Post Vasectomy See Note No normal HP CONVERSION Sperm Count range Comment: 73 sperm per slide. Performed on centrifuged specimen. Specimen (Source) Anatomical Collection Method Collection Time Re ceived Time Location / / Volume Laterality 01/08/2010 8:15 AM CDT Rick Limon MD LAB_1 Performing Organization Address City/State/[facility] Code Phon e Number HP CONVERSION documented in this encounter Visit Diagnoses Not on filedocumented in this encounter Care Teams Mac Artist Relationship Specialty Start Date End Date Laci Hall MD PCP - General 12/20/10 12/23/10 [address] [place] [address] documented as of this encounter
--- OUTSIDE RECORDS SUMMARY | 2022-06-18 08:46 | XMS_ITS | Encounter Summary ---
:1970 Author Organization [facility] Address [address], [place] [address] Care Team Providers Name Role Phone Laci Hall MD Primary Care Provider Encounter Details Date Type Department Care Team Description 12/19/2006 Office Visit [facility] [place] [address] [facility] [address] [place] [place] [address] [place] [address] [phone] (Wo rk) Social History Tobacco Use Types Packs/Day Years Used Date Smoking Tobacco: Never Assessed Sex Assigned at Date Recorded Not on file documented as of this encounter Last Filed Vital Signs Vital Sign Reading Time Taken Comments Blood Pressure 131/71 12/19/2006 4:53 PM CDT Pulse 59 12/19/2006 4:53 PM CDT Temperature 36.6 ??C (97.9 ??F) 12/19/2006 4:53 PM CDT C: 36 .6 C Respiratory Rate 16 12/19/2006 4:53 PM CDT Oxygen Saturation 98% 12/19/2006 4:53 PM CDT Inhaled Oxygen Concentration - - Weight - - Height - - Body Mass Index - - documented in this encounter Progress Notes Lotus Rodriguez DO - 12/19/2006 12:01 AM CDT Progress Notes signed by Lotus Rodriguez DO at 12/22/06 7240 Author: Lotus Rodriguez DO Service: (none) Author Type: Physician Filed: 01/08/11 1829 Note Time: 12/19/062010 Status: Signed Baseball Club Manager: Lotus Rodriguez DO (Physician) NAME: HAYDEN AMARO MR#: [id number] ACCT: [id number] VISIT: [id number] DICTATING CLINICIAN: LOTUS RODRIGUEZ DO JOB: [id number] LOC: 520 CLINIC PROGRESS NOTE DATE OF VISIT: 12/19/2006 SUBJECTIVE: Patient h a flareup of his allergies and asthma. He has had these problems for several years. He has been wheezing. He has an albuterol inhaler, but usually requires prednisone when this happens. He had some irritation of his stomach when taking prednisone in the past, however. He usually has to take Prilosec before taking prednisone. He uses his inhaler three times a day. He has not required it in quite some time. He uses Advair on a daily basis. He has also run out of his Nasacort. That usually works well for him. He has had sneezing and itchy eyes. He has severe nasal congestion. He had a fundoplication surgery for a severe gastroesophageal reflux and has not required medicine daily for this condition since then. He has a history of nasal polyps as well and gets frequent sinus infections. He made it clear that he did not want to go on antibiotics today, however, he does not feel like he is that bad and has tried to limit his use of antibiotics in the past. He denies any fevers or chills. He does have chest congestion. He does not have a sore throat. His left ear has felt a little bit plugged today, but it seems better now. ADR/ALLERGIES: DUST MITES AND MOLD. He does not smoke cigarettes. OBJECTIVE: VS: Stable. Patient is a well-developed, well-nourished adult male in no acute distress. HEART: Regular, rate, and rhythm. LUNGS: Clear to auscultation. There is a harsh cough. There is occasional wheezing, but it is not consistent. Pulse is 98% on room air. Tympanic membranes were intact and clear. Oropharynx is clear. Nasal passages were obstructed and pale and there was evidence of apparent polyps. There was also some milky white mucus noted in each nostril. Maxillary sinuses were not tender to percussion. Eyes were clear. No skin rashes noted. NECK: Supple. There was no cervical lymphadenopathy. Patient declines chest x-ray today. ASSESSMENT: 1. Acute exacerbation of asthma. 2. Seasonal allergic rhinitis, not well controlled. 3. History of nasal polyps. 4. History of gastroesophageal reflux disease, status post fundoplication surgery. PLAN: 1. Prednisone 20 mg b.i.d. for 5 days. 2. Nasacort AQ 1 bottle with sprays daily each nostril. 3. Recommended [id number] Prilosec starting immediately. Recommended that he not start prednisone until tomorrow morning. 4. Follow up with primary care physician in 2 or 3 days if not doing much better, or call them sooner, or return to our clinic if he worsens or develops new symptoms. RJS:[id number] C: 12/20/06 18:39 DOCUMENT: [id number] documented in this encounter Plan of Treatment Not on filedocumented as of this encounter Visit Diagnoses Not on filedocumented in this encounter Care Teams Audit Clerk Relationship Specialty Start Date End Date Laci Hall MD PCP - General 12/20/10 12/23/10 [address] [place] [address] documented as of this encounter
--- OUTSIDE RECORDS SUMMARY | 2022-06-18 08:46 | XMS_ITS | Encounter Summary ---
:1970 Author Organization [facility] Address [address] [address] Care Team Providers Name Role Phone Laci Hall MD Primary Care Provider Encounter Details Date Type Department Care Team Description 06/09/2007 Office Visit [facility] [id number] [address] [place] [address] [phone] (Wo rk) Social History Tobacco Use Types Packs/Day Years Used Date Smoking Tobacco: Never Assessed Sex Assigned at Date Recorded Not on file documented as of this encounter Last Filed Vital Signs Vital Sign Reading Time Taken Comments Blood Pressure 141/74 06/09/2007 3:12 PM CDT Pulse 68 06/09/2007 3:12 PM CDT Temperature 36.8 ??C (98.2 ??F) 06/09/2007 3:12 PM CDT C: 36 .8 C Respiratory Rate 16 06/09/2007 3:12 PM CDT Oxygen Saturation - - Inhaled Oxygen Concentration - - Weight - - Height - - Body Mass Index - - documented in this encounter Progress Notes Lotus Rodriguez DO - 06/09/2007 12:01 AM CDT Progress Notes signed by Lotus Rodriguez DO at 07/07/072012 Author: Lotus Rodriguez DO Service: (none) Author Type: Physician Filed: 01/08/11 2152 Note Time: 06/09/07 0001 Status: Signed Calender Operator Helper: Lotus Rodriguez DO (Physician) NAME: HAYDEN AMARO MR#: [id number] ACCT: [id number] VISIT: [id number] DICTATING CLINICIAN: LOTUS RODRIGUEZ DO JOB: [id number] LOC: 3620 CLINIC PROGRESS NOTE DATE OF VISIT: 06/09/2007 SUBJECTIVE: The patient has had worsening of facial pain, pressure and nasal congestion over the past 3 days. His chest has been tight over the past 3 days as well. He has had some wheezing. He is running low on his inhaler. He has a history of chronic/recurrent sinusitis and nasal polyps. He has had several sinus surgeries. He denies any fevers, chills, shortness of breath or chest pain. He denies any plugged feeling in his ears. He denies any sore throat. He has a colorful nasal discharge. He does not smoke cigarettes. OBJECTIVE: VS: Stable. The patient is a well-developed, well-nourished adult male in no acute distress. HEART: Regular rate and rhythm. LUNGS: Clear to auscultation. Tympanic membranes are intact and clear. Oropharynx is clear. NECK: Supple and there is no cervical lymphadenopathy. Nasal passages are pale and edematous and have a thick purulent discharge bilaterally, right side is worse than left. ASSESSMENT: 1. Acute sinusitis. 2. Chronic rhinitis. 3. Asthma. PLAN: 1. Augmentin XR 1 g, #40, 2 p.o. b.i.d. for 10 days. 2. Nasacort AQ 2 bottles, 2 sprays daily each nostril. 3. Albuterol inhaler, #1, 2 puffs q.3-4h. p.r.n. for coughing and wheezing. 4. Followup with ENT as scheduled next week. Return to our clinic or see primary care physician early next if not doing much better. Call sooner or return to our clinic over the weekend if he worsens or develops new symptoms. RJAna Maria:[id number] C: 06/10/07 11:46 DOCUMENT: [id number] documented in this encounter Plan of Treatment Not on filedocumented as of this encounter Visit Diagnoses Not on filedocumented in this encounter Care Teams Pediatric Dermatologist Relationship Specialty Start Date End Date Laci Hall MD PCP - General 12/20/10 12/23/10 [address] [place] [address] documented as of this encounter
--- OUTSIDE RECORDS SUMMARY | 2022-06-18 08:46 | XMS_ITS | Encounter Summary ---
:1970 Author Organization [facility] Address [address], [place] [address] Care Team Providers Name Role Phone Raulito Saez CHITO LUNDBERG Primary Care Provider [phone] Reason for Visit Reason Comments Other Encounter Details Date Type Department Care Team Description 07/13/2007 Telephone [facility] [address] Brenda Guaman MD Other [address] [facility] [address] [place] [address] [place], [place] [address] (Wo rk) Social History Tobacco Use Types Packs/Day Years Used Date Smoking Tobacco: Never Assessed Sex Assigned at Date Recorded Not on file documented as of this encounter Progress Notes Brenda Orta MD - 07/13/2007 12:23 PM CDT Phone Note filed by Brenda Orta MD at 01/06/11701 Author: Brenda Orta MD Service: (none) Author Type: Physician Filed: 01/06/11701 Note Time: 07/13/07 1223 Status: Signed Heel Lift Gouger: Brenda Orta MD (Physician) IgE 4596 IU which may be higher than Xolair dosing. WIll await records [facility] prior to making formal decison regarding IT or Xolair. Created on 13Jul2007 12:23pm by BRENDA ORTA On 18Jul2007 12:25pm BRENDA ORTA wrote: Records not yet recieved. Acknowledged by BRENDA ORTA on 12:25pm SEAMER documented in this encounter Plan of Treatment Not on filedocumented as of this encounter Visit Diagnoses Not on filedocumented in this encounter Care Teams Cinema Operator Relationship Specialty Start Date End Date Raulito Saez APRN, CAMP ASSISTANT PCP - General 12/24/10 09/25/18 documented as of this encounter
--- OUTSIDE RECORDS SUMMARY | 2022-06-18 08:46 | XMS_ITS | Encounter Summary ---
:1970 Author Organization [facility] Address [address] [address] Care Team Providers Name Role Phone Laci Hall MD Primary Care Provider Encounter Details Date Type Department Care Team Description 07/11/2007 PN Conversion Only [place] [address] [address] [place], [place] [address] (Wo rk) Social History Tobacco Use Types Packs/Day Years Used Date Smoking Tobacco: Never Assessed Sex Assigned at Date Recorded Not on file documented as of this encounter Plan of Treatment Not on filedocumented as of this encounter Procedures Procedure Name Priority Date/Time Associated Diagnosis Comme nts IGE TOTAL Routine 07/11/2007 3:36 PM Results f or this CDT procedure are i n the results section . documented in this encounter Results (ABNORMAL) IgE Total (07/11/2007 3:36 PM CDT) [facility] Method Time Signature Immunoglobulin E 4,596 (H) 0 - 180 HP CONVERSION IU/mL Comment: Interpretive data: TEST INFORMATION: Immunoglobulin E To convert to ng/mL, multiply IU/mL by 2 .4. Performed at [facility] [address] [place] [address] 84 8 Specimen (Source) Anatomical Collection Method Collection Time Re ceived Time Location / / Volume Laterality 07/11/2007 3:36 PM CDT Brenda Copeland MD LAB_1 Performing Organization Address City/State/ZIP Code Phon e Number HP CONVERSION documented in this encounter Visit Diagnoses Not on filedocumented in this encounter Care Teams Aircraft Detail Draftsperson Relationship Specialty Start Date End Date Laci Hall MD PCP - General 12/20/10 12/23/[address] [place] [address] documented as of this encounter
--- OUTSIDE RECORDS SUMMARY | 2022-06-18 08:46 | XMS_ITS | Encounter Summary ---
:1970 Author Organization [facility] Address [address], [place] [address] Care Team Providers Name Role Phone Raulito Saez TOÑO, OVERNIGHT CASHIER Primary Care Provider [phone] Reason for Visit Reason Comments Other Encounter Details Date Type Department Care Team Description 08/01/2007 Telephone [facility] [address] [facility], Message Other [address] [place] [address] [address] Social History Tobacco Use Types Packs/Day Years Used Date Smoking Tobacco: Never Assessed Sex Assigned at Date Recorded Not on file documented as of this encounter Progress Notes Brenda Copeland MD - 08/01/2007 1:27 PM CST Phone Note filed by Brenda Copeland MD at 01/06/11819 Author: Brenda Copeland MD Service: (none) Author Type: Physician Filed: 01/06/11819 Note Time: 08/01/071326 Status: Signed Pencil Sorter: Brenda Copeland MD (Physician) Reviewed records from [place]. PFT remain stable. Missing were skin tests reports and IgE levels. Discussed options with Hayden. He has no interest in persuing Xolair at this time. He would like to begin traditional IT. Please mix extract if orders and consent are available. O/W please inform me if you need orders or send consent to Hayden. Thanks! Created on 01Aug2007 1:27pm by BRENDA COPELAND On 01Aug2007 4:22pm NAZANIN PRUITT wrote: Order is in the Lab. Waiting for PT to send in signed consent form. PT was given one at the time of appointment but will mail another one just in case. Will mix extracts once consent form is obtained. Acknowledged by NAZANIN PRUITT on 4:22pm ING STONECUTTER documented in this encounter Plan of Treatment Not on filedocumented as of this encounter Visit Diagnoses Not on filedocumented in this encounter Care Teams Parimutuel Ticket Seller Relationship Specialty Start Date End Date Raulito Saez APRN, OVERNIGHT CASHIER PCP - General 12/24/10 09/25/18 documented as of this encounter
--- OUTSIDE RECORDS SUMMARY | 2022-06-18 08:46 | XMS_ITS | Encounter Summary ---
:1970 Author Organization [facility] Address [address] [address] Care Team Providers Name Role Phone Laci Hall MD Primary Care Provider Encounter Details Date Type Department Care Team Description 06/15/2007 PN Conversion Only [place] [facility] N [place], [address] [facility] [place] [address] [facility] [address] [place] [address] (Wo rk) Social History Tobacco Use Types Packs/Day Years Used Date Smoking Tobacco: Never Assessed Sex Assigned at Date Recorded Not on file documented as of this encounter Plan of Treatment Not on filedocumented as of this encounter Procedures Procedure Name Priority Date/Time Associated Diagnosis Comme nts GLUCOSE Routine 06/15/2007 9:22 AM Results f or this CDT procedure are i n the results section. LIPID PANEL AND Routine 06/15/2007 9:22 AM Result s for this DIRECT LDL(IF CDT procedure are in NEEDED) the results section. COMPLETE BLOOD Routine 06/15/2007 9:22 AM Results for this COUNT-W/DIFF CDT procedure are i n the results section. ALT (SGPT) Routine 06/15/2007 9:22 AM Results f or this CDT procedure are i n the results section. AST Routine 06/15/2007 9:22 AM Results f or this CDT procedure are i n the results section. documented in this encounter Results Complete Blood Count-W/Diff (06/15/2007 9:22 AM CDT) [facility] im3D Method Time Signature White Blood Cell 7.1 3.8 - 11.0 [place] CONVERSIO N Count K/cmm Red Blood Cell 5.18 4.20 - HP CONVERSION Count 5.90 m/cmm Hemoglobin 15.7 13.4 - HP CONVERSION 17.5 gm/dL Hematocrit 45.8 39.0 - HP CONVERSION 51.0 % Mean Corpuscular 88.4 80.0 - HP CONVERSION Volume 100.0 fl Mean Corpuscular 30.4 27.0 - HP CONVERSION Hemoglobin 34.0 pg Mean Corpuscular 34.4 32.0 - HP CONVERSION Hemoglobin Conc 36.5 gm/dL [place] RDW 12.2 11.0 - HP CONVERSION 15.0 % Platelet Count 287 140 - 450 HP CONVERSION k/cmm Differential Auto-Dif No normal HP CONVERSION Verify range Neutrophils 4.4 2.0 - 7.5 HP CONVERSION Absolute Count K/cmm Neutrophil 61.5 50.0 - HP CONVERSION 75.0 % Lymphocyte % 23.5 20.0 - HP CONVERSION 40.0 % Monocyte 10.4 5.0 - 14.0 HP CONVERSION % Eosinophil 3.9 0.0 - 6.0 HP CONVERSION % Basophil % 0.7 0.0 - 2.0 HP CONVERSION % Specimen (Source) Anatomical Collection Method Collection Time Re ceived Time Location / / Volume Laterality 06/15/2007 9:22 AM CDT Laci Hall MD LAB_1 Performing Organization Address City/State/ZIP Code Phon e Number HP CONVERSION ALT (SGPT) (06/15/2007 9:22 AM CDT) [facility] im3D Method Time Signature Alanine 48 4 - 55 HP CONVERSION Aminotransferase U/L Specimen (Source) Anatomical Collection Method Collection Time Re ceived Time Location / / Volume Laterality 06/15/2007 9:22 AM CDT Laci Hall MD LAB_1 Performing Organization Address City/State/ZIP Code Phon e Number HP CONVERSION AST (06/15/2007 9:22 AM CDT) [facility] im3D Method Time Signature Aspartate 32 0 - 45 HP CONVERSION Aminotransferase U/L Specimen (Source) Anatomical Collection Method Collection Time Re ceived Time Location / / Volume Laterality 06/15/2007 9:22 AM CDT Laci Hall MD LAB_1 Performing Organization Address City/State/ZIP Code Phon e Number HP CONVERSION (ABNORMAL) Glucose (06/15/2007 9:22 AM CDT) P athologist Signature Length Of Fast 12.0 Hours HP CONVERSION Lab Glucose 102 (H) 60 - 100 HP CONVERSION mg/dL Specimen (Source) Anatomical Collection Method Collection Time Re ceived Time Location / / Volume Laterality 06/15/2007 9:22 AM CDT Laci Hall MD LAB_1 Performing Organization Address City/[facility] [address]/[facility] Code Phon e Number HP CONVERSION (ABNORMAL) Lipid Panel and Direct LDL(If Needed) (06/15/2007 9:22 AM CDT) Patholo gist Method Time Signature Length Of Fast 12.0 Hours HP CONVERSION Cholesterol/HDL 5.9 No normal HP CONVERSION Ratio Screen range Cholesterol 218 (H) <200 mg/dL HP CONVERSION HDL Cholesterol 37 (L) 40 - 60 HP CONVERSION mg/dL Triglycerides 310 (H) 0 - 149 HP CONVERSION mg/dL LDL Calculated 119 0 - 130 HP CONVERSION mg/dL Comment: Specimen (Source) Anatomical Collection Method Collection Time Re ceived Time Location / / Volume Laterality 06/15/2007 9:22 AM CDT Laci Hall MD LAB_1 Performing Organization Address City/[facility] [address]/ZIP Code Phon e Number HP CONVERSION documented in this encounter Visit Diagnoses Not on filedocumented in this encounter Care Teams Bicycle Courier Relationship Specialty Start Date End Date Laci Hall MD PCP - General 12/20/10 12/23/10 [address] [address] [place] [address] documented as of this encounter
--- OUTSIDE RECORDS SUMMARY | 2022-06-18 08:46 | XMS_ITS | Encounter Summary ---
:1970 Author Organization [facility] Address [address] [address] Care Team Providers Name Role Phone Laci Hall MD Primary Care Provider Encounter Details Date Type Department Care Team Description 09/01/2006 PN Conversion Only [place] [address] [address] [place] [address] Social History Tobacco Use Types Packs/Day Years Used Date Smoking Tobacco: Never Assessed Sex Assigned at Date Recorded Not on file documented as of this encounter Plan of Treatment Not on filedocumented as of this encounter Visit Diagnoses Not on filedocumented in this encounter Care Teams Mold Machine Operator Relationship Specialty Start Date End Date Laci Hall MD PCP - General 12/20/10 12/23/[address] [place] [id number] documented as of this encounter
--- OUTSIDE RECORDS SUMMARY | 2022-06-18 08:46 | XMS_ITS | Encounter Summary ---
:1970 Author Organization [employer] Address [address] [address] Care Team Providers Name Role Phone Laci Hall MD Primary Care Provider Encounter Details Date Type Department Care Team Description 06/15/2007 Office Visit [facility] [place] [address] [place] [address] [place], [place] [address] (Wo rk) Social History Tobacco Use Types Packs/Day Years Used Date Smoking Tobacco: Never Assessed Sex Assigned at Date Recorded Not on file documented as of this encounter Last Filed Vital Signs Vital Sign Reading Time Taken Comments Blood Pressure 120/72 06/15/2007 8:17 AM CDT Pulse 60 06/15/2007 8:17 AM CDT Temperature - - Respiratory Rate - - Oxygen Saturation - - Inhaled Oxygen Concentration - - Weight 100.7 kg (221 lb 15.7 06/15/2007 8:17 AM C: 100. 7kg oz) CDT Height 185.4 cm (6' 1) 06/15/2007 8:17 AM C: 185.4cm CDT Body Mass Index 29.29 06/15/2007 8:17 AM CDT documented in this encounter Progress Notes Laci Hall MD - 06/15/2007 12:01 AM CDT Progress Notes signed by Laci Hall MD at 06/15/07 1213 Author: Laci Hall MD Service: (none) Author Type: Physician Filed: 01/08/11 2159 Note Time: 06/15/07 0001 Status: Signed It Lead: Laci Hall MD (Physician) Male Preventive Exam IMPRESSION: Routine preventive exam. Past history significant (See text). Excessive alcohol consumption. Allergic Rhinitis. Asthma. SUBJECTIVE: 36 y/o patient presents for a routine preventive physical exam. Past Medical History: Allergic Rhinitis. Asthma. Reflux. History of an upper GI bleed in 2003, required 4 units of packed red blood cells. No source was ever discovered. He has recurrent nasal polyps. 1. lap Robert fundoplication in 1997 2. Open Robert fundoplication 3. Polypectomies 4. Uvulectomy Adverse Drug Reactions: Patient's Adverse Drug Reactions were reviewed and updated today on Health Profile in EMR. Current Medications: Reviewed and updated today on Health Profile in EMR. Review of Systems: With the exception of any items noted above, the remainder of complete ROS is negative. Family History: (First degree family members) Depression. Dad had bipolar disorder and committed suicide at age 55 Social History: Employment status: Employed. Marital Status: . Children's Ages: Two daughters ages 3 and 9 Sexual History: Monogamous relationship. Habits Tobacco: None. Alcohol: Daily, more than two drinks. Drug: Denies any drug use. Preventive Health Assessment: OBJECTIVE: Vital Signs: Vital Signs taken today were reviewed on the flowsheet in the Electronic Medical Record. General: Patient alert, in NAD. HEENT: PERRLA. Bilateral TM's, external 3canals, oropharynx normal. Neck: Supple, without thyromegaly or mass. Upper Extremities: FROM with good strength, no lesions or deformities. CV: 5 RRR without murmurs, rubs or gallops. Resp: Clear to auscultation without 6crackles, wheezes or distress. Breasts: Nontender, without masses, nipple 7discharge, erythema, or axillary adenopathy. Abdomen: Soft, non-tender, 8without hepatosplenomegaly, masses, or hernias. : Penis circumcised without lesions or discharge. No testicular masses. No inguinal hernia. Rectal: Not examined. Prostate: Not examined. Skin: No lesions. Neuro: ; CN II-XII, motor & sensory function all intact. Psychiatric: Alert & oriented with normal affect and insight, does not appear depressed or anxious. ASSESSMENT: Routine preventive exam. Past history significant (See text). Excessive alcohol consumption. Allergic Rhinitis. Asthma. PLAN: Cholesterol (Lipid) panel. Fasting glucose. CBC and LFTs due to his past history of elevated liver enzymes and anemia related to his GI bleed. We will mail lab results to patient. Immunizations reviewed and updated in Health Profile of EMR. Patient's immunizations updated today. Tdap vaccine given. Discussed with patient: Alcohol use, safety and moderation. Recommended a balanced nutritious diet. Benefits of regular exercise. Genital self-exam. Obesity, risks. Sun protection. Weight management. *SH~PC~PEM ~[place] Note completed on: 06/15/2007 12:12 PM documented in this encounter Plan of Treatment Not on filedocumented as of this encounter Visit Diagnoses Not on filedocumented in this encounter Care Teams Pharmacist In Charge Owner Relationship Specialty Start Date End Date Laci Hall MD PCP - General 12/20/10 12/23/10 [address] [place] [address] documented as of this encounter
--- OUTSIDE RECORDS SUMMARY | 2022-06-18 08:46 | XMS_ITS | Encounter Summary ---
:1970 Author Organization [facility] Address [address] [address] Care Team Providers Name Role Phone Laci Hall MD Primary Care Provider Encounter Details Date Type Department Care Team Description 08/11/2007 PN Conversion Only [facility] [address] Mic Copeland MD Allergy [address] [facility] [address] [place] [address] [phone] Social History Tobacco Use Types Packs/Day Years Used Date Smoking Tobacco: Never Assessed Sex Assigned at Date Recorded Not on file documented as of this encounter Plan of Treatment Not on filedocumented as of this encounter Visit Diagnoses Not on filedocumented in this encounter Care Teams Roof Truss Detailer Relationship Specialty Start Date End Date Laci Hall MD PCP - General 12/20/10 12/23/10 [address] [place] [address] documented as of this encounter
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
--- OUTSIDE RECORDS SUMMARY | 2022-06-18 08:46 | XMS_ITS | Encounter Summary ---
:1970 Author Organization [facility] Address [address], [place] [address] Care Team Providers Name Role Phone Laci Hall MD Primary Care Provider Encounter Details Date Type Department Care Team Description 09/20/2007 PN Conversion Only [facility] [address] Copeland MD Allergy [address] [facility] [address] [facility] [place] [id number] [phone] Social History Tobacco Use Types Packs/Day Years Used Date Smoking Tobacco: Never Assessed Sex Assigned at Date Recorded Not on file documented as of this encounter Plan of Treatment Not on filedocumented as of this encounter Visit Diagnoses Not on filedocumented in this encounter Care Teams Layer Off Relationship Specialty Start Date End Date Laci Hall MD PCP - General 12/20/10 12/23/10 [id number] [address] [place] [id number] documented as of this encounter
--- OUTSIDE RECORDS SUMMARY | 2022-06-18 08:46 | XMS_ITS | Encounter Summary ---
:1970 Author Organization [employer] Address [address], [place] [address] Care Team Providers Name Role Phone Laci Hall MD Primary Care Provider Encounter Details Date Type Department Care Team Description 07/11/2007 Office Visit [facility] [place] [address] [employer] [id number] [place] [id number] (Wo rk) Social History Tobacco Use Types Packs/Day Years Used Date Smoking Tobacco: Never Assessed Sex Assigned at Date Recorded Not on file documented as of this encounter Last Filed Vital Signs Vital Sign Reading Time Taken Comments Blood Pressure 130/82 07/11/2007 2:54 PM CDT Pulse - - Temperature - - Respiratory Rate - - Oxygen Saturation - - Inhaled Oxygen Concentration - - Weight 98.9 kg (217 lb 15.9 oz) 07/11/2007 2:54 PM C: 9 8.9kg CDT Height 182.9 cm (6') 07/11/2007 2:54 PM C: 182.9cm CDT Body Mass Index 29.56 07/11/2007 2:54 PM CDT documented in this encounter Progress Notes Brenda Copeland MD - 07/11/2007 12:01 AM CDT Progress Notes signed by Brenda Copeland MD at 08/02/07 0846 Author: Brenda Copeland MD Service: (none) Author Type: Physician Filed: 01/08/11 2232 Note Time: 07/11/07 0001 Status: Signed Agriculture Specialist: Brenda Copeland MD (Physician) NAME: HAYDEN AMARO MR#: [id number] ACCT: [id number] VISIT: [id number] DICTATING CLINICIAN: BRENDA COPELAND MD JOB: [id number] LOC: 514 CLINIC PROGRESS NOTE DATE OF VISIT: 07/11/2007 SUBJECTIVE: : 1970. Hayden is a 36-year-old white male last seen . He has a history of severe asthma complicated by reflux disease, nasal polyposis, and allergic rhinitis. He has been living in [place] and recently returned to the [facility]. While living in [place], he underwent four different surgeries for nasal polyposis. He was on allergy immunotherapy for four months and did notice significant improvement. He found the shot process cumbersome with his travel schedule. He reports no systemic reactions or even large local reactions with the shots. He is not traveling nearly as much as he has in the past and would like to think about allergy shots again. He describes his nasal symptoms to be primarily congestion, feeling as if his sinuses are inflamed, postnasal drainage which can trigger his asthma. Symptoms are year round, definitely worse March through May. House dust, cats more than dogs, and temperature changes are the most significant triggers. He states at times he feels like mucus will build up in his nose and cause a plug. When he can expectorate the plug, he is fine for several days until it starts to reaccumulate. He has no sense of smell. Snoring is not a problem. He uses Nasacort on a regular basis and supplements with Sudafed as needed. He denies any sneezing, watery, itchy eyes. Hayden describes asthma as chest tightness, wheezing, cough. As long as his nasal symptoms are under control and reflux which has not been a problem since his second surgery in , he has no need for albuterol. He does use Advair on a regular basis. No nighttime awakening or interference with activity. Hayden has been on Singulair and Accolate in the past. At one point, hospitalization seemed to correlate with using Singulair. He cannot recall if Accolate provided any significant relief. No significant adverse reactions to food, bees, or ongoing skin reaction; however, his suspects gas and abdominal pain with dairy. He was informed to ask if food testing would be indicated. PAST MEDICAL HISTORY: Reflux, nasal polyposis. Hayden was hospitalized with GI bleed while on aspirin and Levaquin for sinusitis. He was told at that time (2003) to avoid all aspirin and NSAIDs which he has done. FAMILY HISTORY: Negative for allergy. Hayden lives in a vvho-mmjk-noi home, forced air heat, central air conditioning, carpeted bedroom, hypoallergenic pillow encased with allergy cover. There is a Lab/Husky mix in the house for eight years and recent addition of a Labradoodle. 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 Brief smoking history, none within the last 15 years. MEDICATIONS: Reviewed and updated in medical record. ADR/ALLERGIES: INCLUDE LEVOFLOXACIN AND PREDNISONE CAUSING ACUTE GI BLEED. OF NOTE, NO SOURCE WAS EVER CLEARLY IDENTIFIED. OBJECTIVE: VS: BP: 130/82. Ht: 72 in. Wt: 218 lb. Healthy, pleasant male without distress. SKIN: Without rash. Eyes: Conjunctivae clear, PERRLA. Ears: Canals patent, TMs normal. Nose: Without obstruction, discharge, discoloration. Oropharynx clear. Teeth and gums: Good repair. NECK: Supple. No adenopathy. Thyroid not enlarged. LUNGS: Clear with good air movement. No wheezes, rales, or rhonchi. CV: Regular rate and rhythm, normal S1, S2. No murmurs, rubs, or gallops. Skin test positive to both dust mites, cat, dog, every mold, grass, and ragweed. Spirometry normal. FEV1 3.93 liters, 86%; FVC 5.01 liters, 88%; ratio 78%; small airflow 3.42 l/s, 78% of predicted. ASSESSMENT: 1. Persistent asthma. 2. Allergic rhinitis. 3. Nasal polyposis. 4. History of severe reflux disease. Discussed treatment options. Will obtain total IgE. Because patient has so many allergy symptoms correlating with skin test that respond poorly to traditional immunotherapy, Xolair treatment would be warranted. Will need to obtain old records and total IgE level today. Based on those results, would consider attempt for Xolair prior authorization. In the meantime, immunotherapy options discussed, ongoing risk of anaphylaxis and need to wait after and every shot emphasized. PLAN: 1. Allergen avoidance reviewed. 2. Continue medications as previously prescribed. 3. Flu shot given today. 4. Obtain old records from [place]. 5. Total IgE, call with results when available. 6. Return to clinic six months or p.r.n. [facility]:[id number] C: 07/12/07 11:51 DOCUMENT: [id number] E BRUSHER documented in this encounter Plan of Treatment Not on filedocumented as of this encounter Visit Diagnoses Not on filedocumented in this encounter Care Teams Extract Operator Relationship Specialty Start Date End Date Laci Hall MD PCP - General 12/20/10 12/23/10 [address] [place] RODRIGUEZ [id number] documented as of this encounter
--- OUTSIDE RECORDS SUMMARY | 2022-06-18 08:46 | XMS_ITS | Encounter Summary ---
:1970 Author Organization [employer] Address [address], [place] [address] Care Team Providers Name Role Phone Laci Hall MD Primary Care Provider Encounter Details Date Type Department Care Team Description 09/15/2006 Nursing Visit [facility] [place] [address] [facility] [address] [place], [place] [address] [address] [place], [place] [phone] Social History Tobacco Use Types Packs/Day Years Used Date Smoking Tobacco: Never Assessed Sex Assigned at Date Recorded Not on file documented as of this encounter Plan of Treatment Not on filedocumented as of this encounter Visit Diagnoses Not on filedocumented in this encounter Care Teams Steward/Stewardess Economy Class Relationship Specialty Start Date End Date Laci Hall MD PCP - General 12/20/10 12/23/10 [address] [place] MARQUIS RODRIGUEZ [id number] documented as of this encounter
--- OUTSIDE RECORDS SUMMARY | 2022-06-18 08:46 | XMS_ITS | Encounter Summary ---
:1970 [facility] Address [address] [address] Care Team Providers Name Role Phone Unavailable Primary Care Provider Unavailable Encounter Details Date Type Department Care Team Description 11/05/1998 - Hospital Encounter Jainism Orion Haque MD [address] [place] [address] 11/10/1998 [id number]- Orion Haque MD [address] [place], [place] [phone] [facility] [address] [place] [address] Social History Tobacco Use Types Packs/Day Years Used Date Smoking Tobacco: Never Assessed Sex Assigned at Date Recorded Not on file documented as of this encounter Discharge Summaries Orion Haque MD - 11/10/1998 12:01 AM CST Discharge Summaries signed by [employer] at 08/26/99 1200 Author: Orion Haque MD Service: (none) Author Type: Physician Filed: 01/06/11 0913 Note Time: 11/10/98 0000 Status: Signed Aeronautical Research Engineer: Orion Haque MD (Physician) [id number] XXX DISCHARGE SUMMARY ADMITTING DIAGNOSIS: 1. RECURRENT GASTROESOPHAGEAL REFLUX DISEASE. 2. ASTHMA AFTER LAPAROSCOPIC EMY FUNDOPLICATION, January. DISCHARGE DIAGNOSIS: 1. RECURRENT GASTROESOPHAGEAL REFLUX DISEASE. 2. RECURRENT ASTHMA. OPERATIONS PERFORMED: Attempted recurrent laparoscopic Emy fundoplication followed by open Emy fundoplication. POSTOPERATIVE COMPLICATIONS: None. HISTORY: The patient is a 28-year-old male with a history of recurrent gastroesophageal reflux disease after a Emy fundoplication laparoscopically, January. Recurrence of his symptoms about two months after the procedure. He was evaluated with and upper GI which showed essentially no anatomical evidence of previous surgery and endoscopy showed just minimal rotation of the fundus consistent with only a partial wrap. It was felt that he broke down his plication, and because of his recurring symptoms, we elected to go ahead and proceed. HOSPITAL COURSE: The patient was admitted and underwent the above listed procedure. We tried for about 2-1/2 hours laparoscopically could not get around the lateral aspect of the esophagus posteriorly and he was converted to an open procedure. Postoperatively, he really did well without complication. He tolerated the discomfort well. He had a nasogastric tube placed, at the time of the procedure, which was pulled then on postoperative day 1. He was kept NPO until postoperative day 2. He was then placed on a clear liquid diet. He was discharged home on postoperative day 5 on a clear liquid diet, passing flatus. DISCHARGE INSTRUCTIONS: 1. Diet as tolerated. 2. No lifting more than 30 pounds for six weeks. 3. Tylenol or Percocet for pain. May also use ibuprofen 600 mg every six hours. 4. He may shower. Do not soak the incision in tub for two weeks. 5. He will call my office for an appointment for followup in 10-14 days. CONDITION ON DISCHARGE: DISPOSITION: ORION HAQUE MD TAJ:[id number] C: DOCUMENT: [id number] END OF RECORD: OR CORPORATE STRATEGY MANAGER documented in this encounter Procedure Notes Orion Haque MD - 11/10/1998 12:01 AM CST OR Surgeon signed by [employer] And at 08/26/99 1200 Author: Orion Haque MD Service: (none) Author Type: Physician Filed: 01/06/11 0913 Note Time: 11/10/98 0000 Status: Signed Aeronautical Research Engineer: Orion Haque MD (Physician) [id number] XXX OPERATIVE REPORT DATE OF OPERATION: 11/05/1998 SURGEON: ORION HAQUE MD PRECAST MOLDER: NIGHAT HERNANDEZ MD PREOPERATIVE DIAGNOSIS: Recurrent gastroesophageal reflux disease and asthma, status post laparoscopic Emy fundoplication. POSTOPERATIVE DIAGNOSIS: Recurrent gastroesophageal reflux disease and asthma, status post laparoscopic Emy fundoplication. PROCEDURE PERFORMED: Attempted redo laparoscopic Emy fundoplication followed by an open Emy fundoplication. ANESTHESIA: General endotracheal. INDICATIONS: The patient is a 28-year-old male who underwent a laparoscopic Emy fundoplication January 1998. He had a 360 degree wrap over a 60 Cuban bougie. Just a couple of short gastric vessels were taken down. He had some relief of his symptoms for the first month or two and then had a recurrence of his GERD symptoms and his worsening of his asthma again. He was evaluated by Dr. Griffin Dale who did an upper GI endoscopy which showed some minimal changes for a partial wrap, and an upper GI was done that showed essentially that he had no previous signs of a Emy fundoplication. For this reason, I recommended that we go ahead and attempt to redo the laparoscopic Emy fundoplication. If that was not possible, then follow it with an open repair. Prior to the procedure, the risks and benefits of the procedure were explained to the patient. Specifically risks of open procedure as well as risks of the gas bloat and inability to belch after the procedure since he had some trouble with gas bloat that appeared after his earlier procedure. Understanding these risks, he gave his consent. FINDINGS: DESCRIPTION OF OPERATION: The patient was brought to the operating room and placed in supine on the operating table. After satisfactory induction of general anesthesia, the Hoang catheter was placed. The patient was placed in Kevin stirrups, bicycle feet was in place. The abdomen was shaved, prepped and draped in the usual fashion using Hibiclens. A #11 blade was used to make a stab incision in the umbilicus. A Veress needle was placed and the abdomen was insufflated with CO2. An #11 mm trocar was placed about 8 cm above the umbilicus in the midline. That was done without difficulty. Four other 5 mm ports were placed, two in the right subcostal area and two in the left subcostal area. We did not use the same trocar size as the previous fundoplication as they did not appear to be in the appropriate places for the technique that I wished to use. Upon entering the abdominal cavity, each of these other trocars were placed under direct vision. The snake liver retractor was placed from the right lateral port. The stomach was adherent to the underside of the liver, and this was first taken down with a combination of scissors, harmonic scalpel, and hook cautery. After the stomach was taken down from the liver, I could come up and dissect out towards the GE junction and what appeared to be the stomach that was at least partially wrapped around the esophagus. Essentially after 2-1/2 hours what I could do was free up the anterior portion of the repair and appeared to have visualized the right and left cristy of the diaphragm, though I could not get around the esophagus as the scar tissue was too adherent. I took down some of the short gastrics with the harmonic scalpel, but the scar and adhesions were too dense for me to take down the top of the fundus. After about 2-1/2 hours of trying and at this time running into a slow ooze and difficulty trying to visualize the exact plane with irrigation, I elected to abort the laparoscopic procedure and proceed with an open procedure. A middle incision was then made from the xiphoid to the umbilicus. I ellipsed out a small amount of skin that I had made my midline trocar insertion place as a transverse incision. Dissection was carried to the linea alba and the abdomen was entered. Visualization of this had done an adequate side dissection anteriorly, but as previously noted, it was the lateral dissection and posterior which was the problem. I went ahead and continued up the greater curve, and it was clear that the short gastrics along the top portion of the upper curve were not taken down. These were really just adjacent to the hilum of the spleen. These were all taken down and tied with 2-0 silk suture. I then completely mobilized the fundus up to the esophageal hiatus. The tissue was fairly dense, but got the right and left cristy identified and posteriorly they had done a repair and the stitches were appropriate. Once I got all the way around the GE junction, a Damion drain was placed. At this point the fundus was completely mobilized. The opening would admit two to two and one-half of my fingers around the GE junction. I went ahead and placed an additional 2-0 Ethibond suture on the cristy posteriorly to the esophagus. I then took the fundus and wrapped it posteriorly to a 360 degree wrap and taking a 2-0 Ethibond and securing a very loose wrap from the greater curvature through the esophagus to the wrap and tied. A second stitch was placed below that once again incorporating the esophagus. A third stitch was placed half way in between these two just approximating the wrap to the other side of the stomach. Two sutures were placed one on either side from the wrap to the cristy. These were tied and this completed the fundoplication. Irrigated was done. There was no evidence of any bleeding. Nasogastric tube was in satisfactory position in the stomach. Closure of the wound was then done with a #1 PDS suture. The transverse incision that was just off the midline, to the left of the midline was closed with a [id number] Vicryl. The skin was closed with 4-0 Vicryl subcuticularly stitch. Each of the other four trocar sites were closed with a 4-0 Vicryl subcuticular stitch. Benzoin and Steri-Strips were applied, covered with sterile dressing. Sponge and needle counts were correct x2. Estimated blood loss of the procedure was 300 cc. Fluid replacement was crystalloid. The patient was brought to the recovery room in satisfactory and stable condition. Sponge and needle counts were correct x2. COMPLICATIONS: ORION HAQUE MD TAJ:[id number] C: DOCUMENT: [id number] END OF RECORD: OR CORPORATE STRATEGY MANAGER documented in this encounter Miscellaneous Notes Miscellaneous - Orion Haque MD - 11/10/1998 3:42 PM CST ICD-9-CM ICD-9-CM Narrative description Code ======== DIAGNOSES Principal: ESOPHAGEAL REFLUX 530.81 Secondary: ASTHMA W/O STATUS ASTHM 493.90 PROCEDURES Provider Date Principal: CREAT ESOPHAGASTR SPHINC 44.66 CPT4 documented in this encounter Plan of Treatment Not on filedocumented as of this encounter Procedures Procedure Name Priority Date/Time Associated Comments Diagnosis CONVERSION DEFAULT Routine 11/07/1998 4:14 AM Res ults for this INTERFACE ORDER SENIOR CORPORATE STRATEGY MANAGER procedure ar e in the results section. CONVERSION DEFAULT Routine 11/06/1998 7:15 AM Res ults for this INTERFACE ORDER SENIOR CORPORATE STRATEGY MANAGER procedure ar e in the results section. CONVERSION DEFAULT Routine 11/06/1998 7:15 AM Res ults for this INTERFACE ORDER SENIOR CORPORATE STRATEGY MANAGER procedure ar e in the results section. documented in this encounter Results Conversion Default Interface Order (11/07/1998 4:14 AM SENIOR CORPORATE STRATEGY MANAGER) Patholo gist Method Time Signature Color Yellow HP CONVERSION Turbidity Clear HP CONVERSION U Specific 1.020 1.001 1.-035 HP CONVERSION [place] pH Urine 6.5 4.5 7.5 HP CONVERSION Protein Urine Trace Neg Trac-- HP CONVERSION Glucose, Negative Neg Trac-- HP CONVERSION Qualitative U Ketones Negative Negative - HP CONVERSION U BILI Negative Negative - HP CONVERSION Blood Urine Negative Negative - HP CONVERSION Nitrite Urine Negative Negative - HP CONVERSION Leukocyte Negative Negative - HP CONVERSION Esterase Urine Urobilinogen Negative 0.2 1.0- HP CONVERSION Urine White Blood 2 0 5/HPF HP CONVERSION Cells Urine Red Blood Cells 1 0 4/HPF HP CONVERSION Urine Specimen (Source) Anatomical Collection Method Collection Time Re ceived Time Location / / Volume Laterality 11/07/1998 4:14 AM SENIOR CORPORATE STRATEGY MANAGER Lab Conversion LAB_1 Performing Organization Address City/State/ZIP Code Phon e Number HP CONVERSION Conversion Default Interface Order (11/06/1998 7:15 AM SENIOR CORPORATE STRATEGY MANAGER) P athologist Signature Hemoglobin 14.0 13.4 HP CONVERSION 17.-5gm/d L Specimen (Source) Anatomical Collection Method Collection Time Re ceived Time Location / / Volume Laterality 11/06/1998 7:15 AM SENIOR CORPORATE STRATEGY MANAGER Orion Haque MD LAB_1 Performing Organization Address City/State/ZIP Code Phon e Number HP CONVERSION Conversion Default Interface Order (11/06/1998 7:15 AM SENIOR CORPORATE STRATEGY MANAGER) athologist Signature Potassium 4.2 3.5 5.2mmol HP CONVERSION /L Specimen (Source) Anatomical Collection Method Collection Time Re ceived Time Location / / Volume Laterality 11/06/1998 7:15 AM SENIOR CORPORATE STRATEGY MANAGER Orion Haque MD LAB_1 Performing Organization Address City/[facility] Phon e Number HP CONVERSION documented in this encounter Visit Diagnoses Not on filedocumented in this encounter
--- OUTSIDE RECORDS SUMMARY | 2022-06-18 08:46 | XMS_ITS | Encounter Summary ---
:1970 Author Organization [employer] Address [address], [place] [address] Care Team Providers Name Role Phone Laci Hall MD Primary Care Provider Encounter Details Date Type Department Care Team Description 11/18/2007 Office Visit [facility] [place] [address] [address] [place], [place] [id number] Social History Tobacco Use Types Packs/Day Years Used Date Smoking Tobacco: Never Assessed Sex Assigned at Date Recorded Not on file documented as of this encounter Last Filed Vital Signs Vital Sign Reading Time Taken Comments Blood Pressure 129/76 11/18/2007 9:52 AM KIER PLEATER Pulse 89 11/18/2007 9:52 AM KIER PLEATER Temperature 37.2 ??C (99 ??F) 11/18/2007 9:52 AM KIER PLEATER C: 37.2 C Respiratory Rate 16 11/18/2007 9:52 AM KIER PLEATER Oxygen Saturation - - Inhaled Oxygen Concentration - - Weight - - Height - - Body Mass Index - - documented in this encounter Progress Notes Sree Dallas MD - 11/18/2007 12:01 AM CST Progress Notes signed by Sree Dallas MD at 12/13/07 1916 Author: Sree Dallas MD Service: (none) Author Type: Physician Filed: 01/09/11 0121 Note Time: 11/18/07 0001 Status: Signed Baseball Scout: Sree Dallas MD (Physician) NAME: HAYDEN AMARO MR#: [id number] ACCT: [id number] VISIT: [id number] DICTATING CLINICIAN: Sree Dallas MD JOB: [id number] LOC: 520 CLINIC PROGRESS NOTE DATE OF VISIT: 11/18/2007 SUBJECTIVE: : 1970. Patient is here for chest congestion, asthma. Patient has concern, he is an asthmatic. He is not having any significantly worse wheezing at this time, but is starting to have a pattern of influenza. He states his was his first contact of someone who was ill. He is not sure if she has influenza, but he is just very, very concerned. Usually gets in significant trouble with his asthma if he gets influenza. He, in the past, has had courses of prednisone and Levaquin and got a GI bleed. Very careful about what he takes and drinks and eats. His temperature has been as high as 102.6. Congested, cough, with thick sputum at times. He had used albuterol 7 or 8 times last night. Other treatment is for asthma with Advair. ADR/ALLERGIES: CECLOR AND GETS GI BLEED FROM LEVAQUIN, PREDNISONE. OBJECTIVE: VS: BP: 129/76. T: 99.0. P: 89. R: 16. Age: 37. Oxygen: 97%. EARS, NOSE, AND THROAT: Unremarkable. NECK: Negative. CHEST AND LUNGS: Patient has a few rhonchi. He was not wheezing. He was not tachypneic. Influenza antigen was done and was positive for influenza A. ASSESSMENT: Asthma, influenza A. PLAN: Tamiflu 75 mg twice a day for 5 days. Continue to push fluids, rest. Continue with asthma medications. IMPRESSION: Asthma, influenza A. DRL:[id number] C: 11/20/07 19:31 DOCUMENT: [id number] documented in this encounter Plan of Treatment Not on filedocumented as of this encounter Visit Diagnoses Not on filedocumented in this encounter Care Teams Work Measurement Engineer Relationship Specialty Start Date End Date Laci Hall MD PCP - General 12/20/10 12/23/10 [address] [place] RODRIGUEZ [address] documented as of this encounter
--- OUTSIDE RECORDS SUMMARY | 2022-06-18 08:46 | XMS_ITS | Encounter Summary ---
:1970 Author Organization [employer] Address [address], [place] [address] Care Team Providers Name Role Phone Laci Hall MD Primary Care Provider Encounter Details Date Type Department Care Team Description 11/18/2007 PN Conversion Only [place] [address] [facility] [address] [place] [id number] [place] [address] Social History Tobacco Use Types Packs/Day Years Used Date Smoking Tobacco: Never Assessed Sex Assigned at Date Recorded Not on file documented as of this encounter Plan of Treatment Not on filedocumented as of this encounter Procedures Procedure Name Priority Date/Time Associated Diagnosis Comme nts INFLUENZA A AND B Routine 11/18/2007 11:57 AM Res ults for this ANTIGEN SENIOR DATASTAGE DEVELOPER procedure are i n the results section. documented in this encounter Results (ABNORMAL) Influenza A and B Antigen (11/18/2007 11:57 AM SENIOR DATASTAGE DEVELOPER) [facility] Method Time Signature Influenza A & SEE TEXT HP CONVERSION B Ag (A) Comment: Patient: HAYDEN AMARO Influenza A,B (Swab, In House) ?Collected: ??[id number] ??[id number] Source: NASOPHAR ?Processed: ??[id number] ??[id number] ? 1V Final Report ------ ?[id number] ??[id number] Positive for the presence of influenza A antigen. Specimen (Source) Anatomical Collection Method Collection Time Re ceived Time Location / / Volume Laterality 11/18/2007 11:57 AM SENIOR DATASTAGE DEVELOPER Sree Dallas MD LAB_1 Performing Organization Address City/State/ZIP Code Phon e Number HP CONVERSION documented in this encounter Visit Diagnoses Not on filedocumented in this encounter Care Teams Education Specialist Relationship Specialty Start Date End Date Laci Hall MD PCP - General 12/20/10 12/23/10 [id number] [facility] [place] [id number] documented as of this encounter
--- OUTSIDE RECORDS SUMMARY | 2022-06-18 08:46 | XMS_ITS | Encounter Summary ---
:1970 Author Organization [facility] Address [address], [place] [address] Care Team Providers Name Role Phone Unavailable Primary Care Provider Unavailable Encounter Details Date Type Department Care Team Description 09/08/1998 - Hospital Encounter [facility] [address]cid MD [address] [place] [address] 09/09/1998 Endoscopy Griffin Dale MD [address] [place] [address] [address] [place] [address] Social History Tobacco Use Types Packs/Day Years Used Date Smoking Tobacco: Never Assessed Sex Assigned at Date Recorded Not on file documented as of this encounter Plan of Treatment Not on filedocumented as of this encounter Visit Diagnoses Not on filedocumented in this encounter
[2022-06-18 10:34] LABS: Chloride* 101 mmol/L (96-114)
[2022-06-18 10:35] LABS: Potassium* 4.4 mmol/L (3.6-5.1); Sodium* 139 mmol/L (135-149)
[2022-06-18 10:37] LABS: Creatinine* 0.9 mg/dL (0.5-1.5); Estimated Glomerular Filt Rate 103 ml/min
[2022-06-18 10:38] LABS: Blood Urea Nitrogen* 20 mg/dL (7-30); Calcium* 9.3 mg/dL (8.4-10.6); Carbon Dioxide* 30 mmol/L (20-32); Glucose* 103 mg/dL (60-115)
== END 2022-06-18 08:39 | disposition home or self-care (01) ==
LOC: NFLDREF 08:39
PROVIDERS: PCP Family Medicine; Visit Provider Family Medicine
DX: I10 Essential (primary) hypertension (principal); Z01.818 Encounter for other preprocedural examination
CPT/HCPCS: 80048

== ENCOUNTER 2022-06-21 11:29 | Outpatient (CLI) | payer OTHER, SELFPAY ==
--- OUTSIDE RECORDS SUMMARY | 2022-06-21 11:32 | XMS_ITS | Encounter Summary ---
:1970 Author Organization [facility] Address [address] [place] [address] Care Team Providers Name Role Phone Unavailable Primary Care Provider Unavailable Reason for Visit Reason Comments COVJANESSA Nurse Line Encounter Details Date Type Department Care Team Description 05/15/2020 Clinical Communication Division of ALICE Min Nurse [facility] [address] [facility] in [place] [facility] [address] [place] [phone] [address] [facility] (Work) [place] [phone] Social History Tobacco Use Types Packs/Day Years [...] to be swabbed for COVID-19, sent to [facility] located at [address] Testing [...] and water aren't available, use a hand fire alarm operator that contains at least 60% alcohol. Avoid [...] since you were tested. Educational Resource: https://www.cdc.gov/coronavirus/2019-ncov/ wpxnklg-hrdhiae-przv/index.html Education: patient/caregiver Patient/caregiver able to teach back Patient agreeable to plan of care: Yes The following references were used: [facility] novel coronavirus (COVID- 19) resources Nursing judgement documented in this encounter Plan of Treatment Not on filedocumented as of this encounter Visit Diagnoses Not on filedocumented in this encounter
--- OUTSIDE RECORDS SUMMARY | 2022-06-21 11:32 | XMS_ITS | Encounter Summary ---
:1970 Author Organization [facility] Address [address] [place] [address] Care Team Providers Name Role Phone Unavailable Primary Care Provider Unavailable Reason for Visit Reason Comments Dizziness pt states has felt lighthead ed and dizzy today. Has had sinus congestion for weeks, took decongestant this morning. Encounter Details Date Type Department Care Team Description 01/29/2019 [facility] Annamarie Rothman D. O. Dizziness (Primary Dx) Department Hu Ruiz M.D. [address] [place] [id number] [place] [address] Social History Tobacco Use Types [...] cannot be sent through Care Everywhere. Dizziness ([place])documented in this encounter Medications at Time of [...] Take 250 mcg by 0 mouth daily. triamterene-hydroCHLOROthiazi Take by mouth. 0 de (for_DYAZIDE) 37.5-25 mg per capsule methylphenidate HCl Chew 5 mg. 0 01/21/2015 (METHYLIN) 5 mg tablet,chewable sertraline (for_ZOLOFT) 50 mg Take 50 mg by 0 10/2015 tablet mouth. documented as of this encounter ED Notes [...] Signature Ventricular Rate 59 BPM MUSE ECG/Min CA Interval 190 ms MUSE QRSD Interval 110 ms MUSE QT Interval 436 ms MUSE QTC Interval 431 ms MUSE P Cisco 51 degrees MUSE R Cisco 32 degrees MUSE T Wave Cisco 52 degrees MUSE Specimen Anatomical Collection Method [...] Troponin T, 5th <6 <=15 ng/L 01/29/2019 [facility] gen 6:44 PM CDT [facility] Comment: Biotin has been identified by the dana hogue as a potential interfering substance. ??Higher concentr ations of biotin may be found in multivitamins, hair/nail supple ments, and workout supplements. ??If the result does not [facility] clinical observations, repeat testing after patient refrains fr om the use of supplements for at least 12 hours. Specimen Anatomical Collection Method Collection Time Receive d Time (Source) Location / / Volume Laterality Blood (Blood, 01/29/2019 6:13 PM 01/30/20 19 6:26 Venous) CDT PM CDT Annamarie Rothman D.O. LAB BLOOD ADD-ON Performing Organization Address City/State/ZIP Code Phon e Number [place] [address] [place] [address] [facility] Basic Metabolic Panel (01/29/2019 6:13 PM CDT) P athologist Signature Potassium, P 3.9 3.6 - 5.2 01/29/2019 [facility] mmol/L 6:50 PM [facility] Sodium, P 140 135 - 145 01/29/2019 [facility] mmol/L 6:50 PM [facility] Chloride, P 100 98 - 107 01/29/2019 [facility] mmol/L 6:50 PM [facility] Bicarbonate, P 26 22 - 29 01/29/2019 [facility] mmol/L 6:50 PM [facility] Anion Gap, P 14 7 - 15 01/29/2019 [facility] 6:50 PM [facility] BUN (Blood Urea 12 8 - 24 01/29/2019 [facility] Nitrogen), P mg/dL 6:50 PM [facility] Creatinine 0.91 0.74 - 01/29/2019 [facility] 1.35 mg/dL 6:50 PM [facility] [place] eGFR-Black/Afri >90 >=60 01/29/2019 [facility] can Nam[place]ian mL/min/BSA 6:50 PM [facility] Comment: ----ADDITIONAL INFORMATION---- Estimated GFR calculated using the 2009 CKD_EPI creatinine equation. eGFR Non-Black/ >90 >=60 mL/min/BSA 01/29/2019 6:50 PM [facility] [place]ian [facility] Comment: ----ADDITIONAL INFORMATION---- Estimated GFR calculated using the 2009 CKD_EPI creatinine equation. Calcium, Total, P 9.6 8.6 - 10.0 mg/dL 01/29/2019 6 :50 PM CDT [facility] Glucose, P 94 70 - 140 mg/dL 01/29/2019 6:50 PM CDT [facility] Specimen Anatomical Collection Method Collection Time Receive d Time (Source) Location / / Volume Laterality Blood (Blood, 01/29/2019 6:13 PM 01/30/20 19 6:26 Venous) CDT PM CDT Annamarie Rothman D.O. LAB BLOOD ADD-ON Performing Organization Address City/State/ZIP Code Phon e Number [facility] [address] [place] [address] [facility] CBC without Differential (01/29/2019 6:12 PM CDT) athologist Signature Hemoglobin 15.7 13.2 - 01/29/2019 [facility] 16.6 g/dL 6:29 PM CDT [facility] Hematocrit 45.6 38.3 - 01/29/2019 [facility] 48.6 % 6:29 PM CDT [facility] Erythrocytes 4.98 4.35 - 01/29/2019 [facility] 5.65 6:29 PM CDT [facility] x10(12)/L [facility] MCV 91.6 78.2 - 01/29/2019 [facility] 97.9 fL 6:29 PM CDT [facility] RBC Distrib Width 13.0 11.8 - 01/29/2019 [facility] 14.5 % 6:29 PM CDT [facility] Platelet Count 285 135 - 317 01/29/2019 [facility] x10(9)/L 6:29 PM CDT [facility] Leukocytes 5.8 3.4 - 9.6 01/29/2019 [facility] x10(9)/L 6:29 PM CDT [facility] Specimen Anatomical Collection Method Collection Time Receive d Time (Source) Location / / Volume Laterality Blood (Blood, 01/29/2019 6:12 PM 01/30/20 19 6:26 Venous) CDT PM CDT Annamarie Rothman D.O. LAB BLOOD ADD-ON Performing Organization Address City/State/ZIP Code Phon e Number [facility] [address] [place] [address] [facility] [address] Head without IV Contrast [...]
--- OUTSIDE RECORDS SUMMARY | 2022-06-21 11:32 | XMS_ITS | Clinical Summary ---
:1970 Author Organization [facility] Address [address] [place] [address] Care Team Providers Name Role Phone Unavailable Primary Care Provider Unavailable Source Comments Patient records contain information from all sites at [facility]. For routine questions regarding patient records, call [phone] during business hours, M-F 8:00 AM - 5:00 PM Central Time. Record requests for emergency care only can be directed to [phone] at any time.[facility] Allergies Active Allergy Reactions Severity Noted Date [...] Addre ss Type Group [employer] CIGNA OPEN [id number] 2019-Present [phone] [id number] PPO ACCESS PLUS BETTINA SCHAEFFER [id number]
--- OUTSIDE RECORDS SUMMARY | 2022-06-21 11:32 | XMS_ITS | Encounter Summary ---
:1970 Author Organization [facility] Address [address] [place] [address] Care Team Providers Name Role Phone Unavailable Primary Care Provider Unavailable Reason for Visit Reason Comments Chest Pain Associated with pain in his left Flank area and nausea without emesis Encounter Details Date Type Department Care Team Description 08/25/2017 [facility] Uri Owen Chest Wall Department Hardy Esquivel (Primary Dx) [address] [place] [id number] Social History Tobacco Use Types Packs/Day Years Used Date Smoking Tobacco: Never Smokeless Tobacco: Never Sex Assigned at Date Recorded Not on file documented as of this encounter Last Filed Vital Signs Vital Sign Reading Time Taken Comments Blood Pressure 126/85 08/25/2017 3:22 PM DIGITAL ANALYST Pulse 63 08/25/2017 3:22 PM DIGITAL ANALYST Temperature 37.2 ??C (99 ??F) 08/25/2017 3:22 PM DIGITAL ANALYST Respiratory Rate 20 08/25/2017 3:22 PM DIGITAL ANALYST Oxygen Saturation 97% 08/25/2017 3:15 PM DIGITAL ANALYST Inhaled Oxygen Concentration - - Weight 102 kg (225 lb) 08/25/2017 12:41 PM DIGITAL ANALYST Height 182.9 cm (6') 08/25/2017 12:41 PM DIGITAL ANALYST Body Mass Index 30.52 08/25/2017 12:41 PM DIGITAL ANALYST documented in this encounter Discharge Instructions Discharge InstructionsUri Owen M.D. - 08/25/2017 3:10 PM DIGITAL ANALYST Return to the ED for Chest pain associated with shortness of breath or lightheadedness. TAL ANALYST AttachmentsThe following attachments cannot be sent through Care Everywhere. Nonspecific Chest Pain, Qxel-je-Ehde (Moldovan)documented in this encounter Medications at Time of Discharge Medication Sig Dispensed Refills Start Date End Date amLODIPine (for_NORVASC) 5 Take 5 mg by [...] 0 yan (for_DYAZIDE) 37.5-25 mg per capsule albuterol (for_PROVENTIL Inhale 2 puffs. 0 2016 HFA,VENTOLIN HFA) 90 mcg/actuation inhaler documented as of this encounter ED Notes [...] or weakness. Uri Owen M.D. 08/25/17 1508 TAL ANALYST documented in this encounter Plan of Treatment Not on filedocumented as of this encounter Procedures Procedure Name Priority Date/Time Associated Comments Diagnosis TROPONIN T, 5TH STAT 08/25/2017 2:35 Results f or this GEN, P PM DIGITAL ANALYST procedure are i n the results section. ECG STAT 08/25/2017 2:33 Results for this PM DIGITAL ANALYST procedure are i n the results section. DX CHEST AP OR PA RAD - Semiurgent 08/25/2017 1:18 Res ults for this AND LATERAL 2 (Fast; most ED PM DIGITAL ANALYST procedure ar e in VIEWS patients; some the results inpatients) section. ECG STAT 08/25/2017 12:55 Results for this PM DIGITAL ANALYST procedure are i n the results section. TROPONIN T, STAT 08/25/2017 12:54 Results for this BASELINE, 5TH PM DIGITAL ANALYST procedure are in GEN, P the results section. CBC WITH STAT 08/25/2017 12:54 Results for this DIFFERENTIAL, B PM DIGITAL ANALYST procedure ar e in the results section. BASIC METABOLIC STAT 08/25/2017 12:54 Results for this PANEL, S/P PM DIGITAL ANALYST procedure are i n the results section. HEPATIC FUNCTION STAT 08/25/2017 12:52 Results for this PANEL, S PM DIGITAL ANALYST procedure are i n the results section. documented in this encounter Results Troponin T (08/25/2017 2:35 PM DIGITAL ANALYST) athologist Signature Troponin T, S <0.01 <0.01 ng/mL 08/25/2017 [facility] 3:00 PM [facility] Comment: Biotin has been identified by the dana hogue as a potential interfering substance. ??Higher concentr ations of biotin may be found in multivitamins, hair/nail supple ments, and workout supplements. ??If the result does not ma [facility] clinical observations, repeat testing after patient refrains fr om the use of supplements for at least 12 hours. Specimen Anatomical Collection Method Collection Time Receive d Time (Source) Location / / Volume Laterality Blood (Blood, 08/25/2017 2:35 PM 08/25/20 17 2:39 Venous) DIGITAL ANALYST PM DIGITAL ANALYST Uri Owen M.D. LAB BLOOD ADD-ON Performing Organization Address City/State/ZIP Code Phon e Number [place] [address] [place] [address] [facility] ECG 12 Lead (08/25/2017 2:33 PM DIGITAL ANALYST) [facility] gist Method Time Signature Ventricular 56 BPM MUSE Rate ECG/Min OH Interval 186 ms MUSE QRSD Interval 110 ms MUSE QT Interval 416 ms MUSE QTC Interval 401 ms MUSE P Paton 26 degrees MUSE R Paton 5 degrees MUSE T Wave Paton 33 degrees MUSE Clinical Sinus bradycardia MUSE Diagnosis Otherwise normal ECG When compared with ECG of 25-AUG-2017 12:55, No significant change was found Specimen Anatomical Collection Method Collection Time Receive d Time (Source) Location / / Volume Laterality 08/25/2017 2:33 PM 7 2:39 DIGITAL ANALYST PM DIGITAL ANALYST Narrative This result has an attachment that is no t available. Uri Owen M.D. ECG ORDERABLES Performing Organization Address City/State/ZIP Code Phon e Number MUSE MUSE NA DX Chest AP or PA and Lateral 2 Views (08/25/2017 1:18 PM DIGITAL ANALYST) Anatomical Region Laterality Modality Chest N/A Digital Radiography Specimen (Source) Anatomical Collection Method Collection Time Re ceived Time Location / / Volume Laterality 08/25/2017 1:22 PM DIGITAL ANALYST Impressions 08/25/2017 1:22 PM DIGITAL ANALYST IMPRESSION: No active cardiopulmonary di sease. Narrative 08/25/2017 1:22 PM DIGITAL ANALYST EXAM: DX CHEST AP OR PA AND [...] Uri Owen M.D. IMG DIAGNOSTIC IMAGING PROCE [facility] ECG 12 Lead (08/25/2017 12:55 PM DIGITAL ANALYST) [facility] Method Time Signature Ventricular 59 BPM MUSE Rate ECG/Min OH Interval 180 ms MUSE QRSD Interval 108 ms MUSE QT Interval 408 ms MUSE QTC Interval 403 ms MUSE P Paton 33 degrees MUSE R Paton 29 degrees MUSE T Wave Paton 39 degrees MUSE Clinical Sinus bradycardia MUSE Diagnosis Otherwise normal ECG No previous ECGs available Specimen Anatomical Collection Method Collection Time Receive d Time (Source) Location / / Volume Laterality 08/25/2017 12:55 08/25/2017 1:31 PM DIGITAL ANALYST PM DIGITAL ANALYST Narrative This result has an attachment that is no t available. Uri Owen M.D. ECG ORDERABLES Performing Organization Address City/State/ZIP Code Phon e Number [place] NA Troponin T, Baseline (08/25/2017 12:54 PM DIGITAL ANALYST) athologist Signature Troponin T, S <0.01 <0.01 ng/mL 08/25/2017 [facility] 1:32 PM [facility] Comment: Biotin has been identified by the dana hogue as a potential interfering substance. ??Higher concentr ations of biotin may be found in multivitamins, hair/nail supple ments, and workout supplements. ??If the result does not ma [facility] clinical observations, repeat testing after patient refrains fr om the use of supplements for at least 12 hours. Specimen Anatomical Collection Method Collection Time Receive d Time (Source) Location / / Volume Laterality Blood (Blood, 08/25/2017 12:54 08/25/2017 1:32 Venous) PM DIGITAL ANALYST PM DIGITAL ANALYST Uri Owen M.D. LAB BLOOD TROPONIN Performing Organization Address City/[facility]/ZIP Code Phon e Number [address] [address] [facility] CBC with Differential (08/25/2017 12:54 PM DIGITAL ANALYST) athologist Signature Hemoglobin 14.6 13.2 - 08/25/2017 [facility] 16.6 g/dL 1:11 PM [facility] Hematocrit 42.8 38.3 - 08/25/2017 [facility] 48.6 % 1:11 PM [facility] Erythrocytes 4.67 4.35 - 08/25/2017 [facility] 5.65 1:11 PM [facility] x10(12)/L [facility] MCV 91.6 78.2 - 08/25/2017 [facility] 97.9 fL 1:11 PM [facility] RBC Distrib Width 12.8 11.8 - 08/25/2017 [facility] 14.5 % 1:11 PM [facility] Platelet Count 266 135 - 317 08/25/2017 [facility] x10(9)/L 1:11 PM [facility] [place] [facility] Leukocytes 6.4 3.4 - 9.6 08/25/2017 [facility] x10(9)/L 1:11 PM [facility] [place] Neutrophils 4.11 1.56 - 08/25/2017 [facility] 6.45 1:11 PM [facility] x10(9)/L [facility] [place] [facility] Lymphocytes 1.47 0.95 - 08/25/2017 [facility] 3.07 1:11 PM DIGITAL ANALYST [facility] x10(9)/L [facility] [place] [facility] Monocytes 0.65 0.26 - 08/25/2017 [facility] 0.81 1:11 PM DIGITAL ANALYST [facility] x10(9)/L [facility] [place] Eosinophils 0.11 0.03 - 08/25/2017 [facility] 0.48 1:11 PM [facility] x10(9)/L [facility] [place] Basophils 0.04 0.01 - 08/25/2017 [facility] 0.08 1:11 PM [facility] x10(9)/L [facility] Specimen Anatomical Collection Method Collection Time Receive d Time (Source) Location / / Volume Laterality Blood (Blood, 08/25/2017 12:54 08/25/2017 1:05 Venous) PM DIGITAL ANALYST PM DIGITAL ANALYST Uri Owen M.D. LAB BLOOD ADD-ON Performing Organization Address City/State/ZIP Code Phon e Number [address] [address] [place] [facility] (ABNORMAL) BMP (Basic Metabolic Panel) (08/25/2017 12:54 PM DIGITAL ANALYST) P athologist Signature Potassium, S 4.8 3.6 - 5.2 08/25/2017 [facility] mmol/L 1:31 PM [facility] [place] Sodium, S 138 135 - 145 08/25/2017 [facility] mmol/L 1:31 PM [facility] Chloride, S 96 (L) 98 - 107 08/25/2017 [facility] mmol/L 1:31 PM [facility] Bicarbonate, S 28 22 - 29 08/25/2017 [facility] mmol/L 1:31 PM [facility] Anion Gap 14 7 - 15 08/25/2017 [facility] 1:31 PM [facility] BUN (Blood Urea 21 8 - 24 08/25/2017 [facility] Nitrogen), S mg/dL 1:31 PM [facility] Creatinine 1.15 0.74 - 08/25/2017 [facility] 1.35 mg/dL 1:31 PM [facility] eGFR 75 >=60 08/25/2017 [facility] Non-Black/Afric mL/min/BSA 1:32 PM [facility]ST EM- an [facility] Comment: ----ADDITIONAL INFORMATION---- Estimated GFR calculated using the 2009 CKD_EPI creatinine equation. eGFR Black/ 87 >=60 mL/min/BSA 08/25/2017 1:32 PM [facility] Comment: ----ADDITIONAL INFORMATION---- Estimated GFR calculated using the 2009 CKD_EPI creatinine equation. Calcium, Total, S 9.8 8.9 - 10.1 mg/dL 08/25/2017 1 :31 PM [facility] Glucose, S 97 70 - 140 mg/dL 08/25/2017 1:31 PM [facility] Specimen Anatomical Collection Method Collection Time Receive d Time (Source) Location / / Volume Laterality Blood (Blood, 08/25/2017 12:54 08/25/2017 1:05 Venous) PM [facility] PM DIGITAL ANALYST Uri Owen M.D. LAB BLOOD ADD-ON Performing Organization Address City/State/ZIP Code Phon e Number [facility] [address] [place] [address] [place] [facility] (ABNORMAL) Hepatic Function Panel (08/25/2017 12:52 PM DIGITAL ANALYST) [facility] Method Time Signature Bilirubin, Total, S 0.8 <=1.2 08/25/2017 [facility] mg/dL 1:32 PM [facility] Bilirubin, Direct, S <0.2 0.0 - 0.3 08/25/2017 [facility] mg/dL 1:32 PM [facility] Aspartate 33 8 - 48 08/25/2017 [facility] Aminotransferase U/L 1:32 PM [facility] Alanine 58 (H) 7 - 55 08/25/2017 [facility] Aminotransferase U/L 1:32 PM [facility] Alkaline 44 (L) 45 - 115 08/25/2017 [facility] Phosphatase, S U/L 1:32 PM [facility] Albumin, S 4.7 3.5 - 5.0 08/25/2017 [facility] g/dL 1:32 PM [facility] Protein, Total, S 7.6 6.3 - 7.9 08/25/2017 [facility] g/dL 1:32 PM [facility] Specimen Anatomical Collection Method Collection Time Receive d Time (Source) Location / / Volume Laterality Blood (Blood, 08/25/2017 12:52 08/25/2017 1:06 Venous) PM DIGITAL ANALYST PM DIGITAL ANALYST Uri Owen M.D. LAB BLOOD ADD-ON Performing Organization Address City/State/ZIP Code Phon e Number [facility] [address] [place] [address] [place] [facility] documented in this encounter Visit Diagnoses Diagnosis Pain Chest Wall - Primary documented in this encounter Administered Medications Inactive Administered Medications - up to 3 most recent administrations Medication Order MAR Action Action Date Dose Rate Site sodium chloride 0.9 % injection 10 Given 08/25/2017 12:51 PM DIGITAL ANALYST 10 mL mL 10 mL, intravenous, As [...] Recently Administered Medications Times are shown in DIGITAL ANALYST. PRN Medication Order 08/23/2017 08/24/2017 08/25/2017 sodium [...]
--- OUTSIDE RECORDS SUMMARY | 2022-06-21 11:32 | XMS_ITS | Encounter Summary ---
:1970 Author Organization [facility] Address [address] [place] [address] Care Team Providers Name Role Phone Unavailable Primary Care Provider Unavailable Reason for Visit Physical Therapy (Routine) - Closed Specialty Diagnoses / Procedures Referred By Contact Refer red To Contact Diagnoses Pain Knee Right Adele Mcdonald, PElizabeth [facility] Procedures PT Evaluate and treat [address] [place] [address] Referral ID Status Reason Start Date Expiration Date Visits Requ ested Visits Authorized [id number] Closed 03/13/2021 03/13/2022 1 1 Encounter Details Date Type Department Care Team Description 03/31/2021 Comprehensive Visit Department of Physical Ailab Santino chapin M.D. [address] [place] [address] Pain Knee Right Medicine and David Mcintosh, P.T., D.P.T. (Primary Dx) Rehabilitation in [place], [place] [address] [place] [phone] Social History Tobacco Use Types Packs/Day Years [...] Onset Date: 03/31/21 Payor: RHONDA / Plan: [employer] OPEN ACCESS PLUS / Product Type: PPO [...] of 12 steps. 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 Aggravating Factors: Sitting and standing for long periods of time. Stairs, lunges and burpees. Relieving Factors: Rest, ibuprofen. 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
--- OUTSIDE RECORDS SUMMARY | 2022-06-21 11:32 | XMS_ITS | Encounter Summary ---
:1970 Author Organization [facility] Address [address] [place] [address] Care Team Providers Name Role Phone Unavailable Primary Care Provider Unavailable Reason for Visit Physical Therapy (Routine) - Canceled Specialty Diagnoses / Procedures Referred By Contact Refer red To Contact Diagnoses Pain Knee Right Adele Mcdonald P.A. [facility] Procedures PT Ongoing treatment [address] [place] [address] Referral ID Status Reason Start Date Expiration Date Visits V isits Requested Authorized [id number] Canceled 03/13/2021 09/18/2021 99 20 Encounter Details Date Type Department Care Team Description 05/06/2021 Clinical Support Department of Physical Adele Mcdonald, P.ASailaja [address] [place] [address] Pain Knee Right Medicine and Sherron Paul, P.T., D.P.T. Rehabilitation in [place], [place] [address] [place] [phone] Social History Tobacco Use Types Packs/Day Years [...] Right Knee Pain Onset Date: 03/31/21 Payor: HBCS / Plan: HBCS OPEN ACCESS PLUS / Product Type: PPO [...] Department of Physical Medicine and Rehabilitation in [address] [address] Dept: [phone] documented in this encounter Miscellaneous Notes Addendum Note - Sherron Paul P.T., Tahir.P.T. - 05/06/2021 4:45 PM CDT Addended by: SHERRON PAUL on: 06/09/2021 01:24 PM Modules accepted: Orders documented in this encounter Plan of Treatment Not on filedocumented as of this encounter Visit Diagnoses Diagnosis Pain Knee Right documented in this encounter
--- OUTSIDE RECORDS SUMMARY | 2022-06-21 11:32 | XMS_ITS | Encounter Summary ---
:[address] [facility] Address [address] [place] [address] Care Team Providers Name Role Phone Unavailable Primary Care Provider Unavailable Reason for Visit Physical Therapy (Routine) - Canceled Specialty Diagnoses / Procedures Referred By Contact Refer red To Contact Diagnoses Pain Knee Right Adele Mcdonald P.A. [facility] Procedures PT Ongoing treatment [address] [place] [address] Referral ID Status Reason Start Date Expiration Date Visits V isits Requested Authorized [id number] Canceled 03/13/2021 09/18/2021 99 20 Encounter Details Date Type Department Care Team Description 04/08/2021 Clinical Support Department of Physical Adele Mcdonald, P.ASailaja [address] [place] [address] Pain Knee Right Medicine and David Mcintosh, P.T., D.P.T. Rehabilitation in [place], [place] [address] [place] [phone] Social History Tobacco Use Types Packs/Day Years [...] Right Knee Pain Onset Date: 03/31/21 Payor: [employer] / Plan: [employer] OPEN ACCESS PLUS / Product Type: PPO [...] and turnin ft x 2 Access Code: [email or web address] URL: [email or web address] Date: 04/08/2021 Prepared by: Fredrick Crowell Home [...] Department of Physical Medicine and Rehabilitation in [address] [address] Dept: [phone] documented in this encounter Plan of Treatment Not on filedocumented as of this encounter Visit Diagnoses Diagnosis Pain Knee Right documented in this encounter
--- OUTSIDE RECORDS SUMMARY | 2022-06-21 11:32 | XMS_ITS | Encounter Summary ---
:1970 Author Organization [facility] Address [address] [place] [address] Care Team Providers Name Role Phone Unavailable Primary Care Provider Unavailable Encounter Details Date Type Department Care Team Description 07/11/2013 Hospital Encounter HX [facility] Crystal Robles P.A.-C., MARQUIS Social History [...] Robles P.A.-C. - 07/11/2013 6:55 PM CDT [id number] CHIEF COMPLAINT/REASON FOR VISIT Dog bite. MEDICATIONS [...] ROBLES PA-C On: 07/12/2013 02:33 PM Source: [facility] [email or web address] Document Id: [id number] documented in this encounter Miscellaneous Notes Miscellaneous - Margot Robles P.A.-C. - 07/11/2013 7:18 PM CDT Ambulatory Depart Summary [facility] - [address] [address] Visit Information Name: DEEHAYDEN RICKS [facility] Number: [id number] Visit Date: 07/11/2013 19:18:53 Attending [...] your provider for clarification. Additional Information: Source: [facility] POWERCHART Document Id: [id number] Miscellaneous - Margot Robles P.A.-C. - 07/11/2013 7:18 PM CDT Ambulatory Patient Summary [facility] - [address] [address] Visit Information Name: STEVIEHAYDEN MENJIVAR [facility] Number: [id number] Current Date: 07/11/2013 19:18:53 Physicians [...] appointment detail needed. Your Goals/Additional instructions: Source: [facility] POWERCHART Document Id: [id number] Miscellaneous - Toño Abarca, C.M.A. 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
--- OUTSIDE RECORDS SUMMARY | 2022-06-21 11:32 | XMS_ITS | Encounter Summary ---
:1970 Author Organization [facility] Address [address] [place] [address] Care Team Providers Name Role Phone Unavailable Primary Care Provider Unavailable Encounter Details Date Type Department Care Team Description 09/04/2012 Hospital Encounter HX NO MAPPING Jo Richardson F.NSamy [address] [place], [place] [address] (Wo rk) Social History Tobacco Use Types Packs/Day Years Used Date Smoking Tobacco: Never Assessed Sex Assigned at Date Recorded Not on file documented as of this encounter Plan of Treatment Not on filedocumented as of this encounter Procedures Procedure Name Priority Date/Time Associated Diagnosis Comme nts RAPID STREP A Routine 09/04/2012 7:37 PM Results for this SCREEN MAINTENANCE SHOP TECHNICIAN procedure are i n the results section. documented in this encounter Results Rapid Strep A Screen (09/04/2012 7:37 PM MAINTENANCE SHOP TECHNICIAN) [facility] Method Time Signature HXRapid Strep POWERCHART Confirmation HXPre Negative for POWERCHART Group A Strep by culture. HXFinal Negative for POWERCHART Group A Strep by culture. Specimen (Source) Anatomical Collection Method Collection Time Re ceived Time Location / / Volume Laterality Throat 09/04/2012 7:37 PM MAINTENANCE SHOP TECHNICIAN Jo Richardson F.N.[facility] LAB MICROBIOLOGY - GENERAL O RDERABLES Performing Organization Address City/State/ZIP Code Phon e Number POWERCHART documented in this encounter Visit Diagnoses Not on filedocumented in this encounter
--- OUTSIDE RECORDS SUMMARY | 2022-06-21 11:32 | XMS_ITS | Encounter Summary ---
:1970 Author Organization [facility] Address [address] [place] [address] Care Team Providers Name Role Phone Unavailable Primary Care Provider Unavailable Reason for Visit Physical Therapy (Routine) - Canceled Specialty Diagnoses / Procedures Referred By Contact Refer red To Contact Diagnoses Pain Knee Right Adele Mcdonald P.A. [facility] Procedures PT Ongoing treatment [address] [place] [address] Referral ID Status Reason Start Date Expiration Date Visits V isits Requested Authorized [id number] Canceled 03/13/2021 09/18/2021 99 20 Encounter Details Date Type Department Care Team Description 04/06/2021 Clinical Support Department of Physical Adele Mcdonald, P.ASailaja [address] [place] [address] Pain Knee Right Medicine and David Mcintosh, P.T., D.P.T. Rehabilitation in [place], [place] [address] [place] [phone] Social History Tobacco Use Types Packs/Day Years [...] Right Knee Pain Onset Date: 03/31/21 Payor: [employer]iz [employer] / Plan: [employer] OPEN ACCESS PLUS / Product Type: PPO [...] 10 second hold 5 reps Access Code: [email or web address] URL: [email or web address] Date: 04/06/2021 Prepared by: Fredrick Crowell Home [...] Department of Physical Medicine and Rehabilitation in [address] [address] Dept: [phone] documented in this encounter Plan of Treatment Not on filedocumented as of this encounter Visit Diagnoses Diagnosis Pain Knee Right documented in this encounter
--- OUTSIDE RECORDS SUMMARY | 2022-06-21 11:32 | XMS_ITS | Encounter Summary ---
:1970 Author Organization [facility] Address [address] [place] [address] Care Team Providers Name Role Phone Unavailable Primary Care Provider Unavailable Reason for Visit Reason Onset Date Comments Outpatient COVID-19 Testing 05/15/2020 Encounter Details Date Type Department Care Team Description 05/15/2020 External Outreach Department of [facility] p[facility] (Primary [place], C.N.P., D.N.P. Dx) [place] [address] [address] [facility] [address] [place] [address] Social History Tobacco Use Types Packs/Day Years [...] RNA, V Symptomatic (05/15/2020 10:46 AM CDT) [facility] Method Time Signature SARS-CoV-2 Swab, 05/15/2020 MKTO [...] is performed using the Aptima SARS-CoV-2 assay ([employer] which has received Emergency Use Authori zation (EUA) by the U.S. Food and Drug Administration. Fact sheets for this Emergency Use Autho rization (EUA) assay can be found at the following links: For Healthcare Providers: https://www.fd a.gov/media/043014/download For Patients: https://www.fda.gov/media/ 080309/download Specimen Anatomical Collection Method Collection Time Receive d Time (Source) Location / / Volume Laterality Varies 05/15/2020 10:46 05/15/2020 3:25 (Nasopharynx) AM CDT PM CDT Moira Lay APRN, C.N.P., D.N.P. LAB [facility] - GENERAL ORDERABLES Performing Organization Address City/State/ZIP Code Phon e Number [facility]- [address] [place] [address] [place] [address] [address] documented in this encounter Visit Diagnoses Diagnosis Infection Upper Respiratory - Primary documented in this encounter Additional Health Concerns Infection Onset Date Last Indicated Resolved Time COVID19 Pending 05/15/2020 05/15/2020 05/15/2020 11:01 PM CDT documented as of this encounter
--- OUTSIDE RECORDS SUMMARY | 2022-06-21 11:32 | XMS_ITS | Encounter Summary ---
:1970 Author Organization [facility] Address [address] [place] [address] Care Team Providers Name Role Phone Unavailable Primary Care Provider Unavailable Reason for Visit Physical Therapy (Routine) - Canceled Specialty Diagnoses / Procedures Referred By Contact Refer red To Contact Diagnoses Pain Knee Right Adele Mcdonald P.A. [facility] Procedures PT Ongoing treatment [address] [place] [address] Referral ID Status Reason Start Date Expiration Date Visits V isits Requested Authorized [id number] Canceled 03/13/2021 09/18/2021 99 20 Encounter Details Date Type Department Care Team Description 04/17/2021 Clinical Support Department of Physical Adele Mcdonald, P.ASailaja [address] [place] [address] Pain Knee Right Medicine and David Mcintosh, P.T., D.P.T. Rehabilitation in [place], [place] [address] [place] [phone] Social History Tobacco Use Types Packs/Day Years [...] Right Knee Pain Onset Date: 03/31/21 Payor: [employer] / Plan: [employer] OPEN ACCESS PLUS / Product Type: PPO [...] Department of Physical Medicine and Rehabilitation in [address] [address] Dept: [phone] documented in this encounter Plan of Treatment Not on filedocumented as of this encounter Visit Diagnoses Diagnosis Pain Knee Right documented in this encounter
--- OUTSIDE RECORDS SUMMARY | 2022-06-21 11:32 | XMS_ITS | Encounter Summary ---
:1970 Author Organization [facility] Address [address] [place] [address] Care Team Providers Name Role Phone Unavailable Primary Care Provider Unavailable Reason for Visit Reason Comments COVID Nurse Line Encounter Details Date Type Department Care Team Description 05/15/2020 Clinical Communication Central Appointment Line, Covid JOSEID Nurse Line Office in [facility] [address] [place] [address] Social History Tobacco Use Types [...]
--- OUTSIDE RECORDS SUMMARY | 2022-06-21 11:32 | XMS_ITS | Encounter Summary ---
:1970 Author Organization [facility] Address [address] [place] [address] Care Team Providers Name Role Phone Unavailable Primary Care Provider Unavailable Encounter Details Date Type Department Care Team Description 12/19/2020 Orders Only [facility] Eliecer Chiu Jr., M.D. [address] [place], [place] [address]andrés [place] [phone] (Wo rk) Social [...]
--- OUTSIDE RECORDS SUMMARY | 2022-06-21 11:32 | XMS_ITS | Encounter Summary ---
:1970 Author Organization [facility] Address [address] [place] [address] Care Team Providers Name Role Phone Unavailable Primary Care Provider Unavailable Reason for Visit Physical Therapy (Routine) - Canceled Specialty Diagnoses / Procedures Referred By Contact Refer red To Contact Diagnoses Pain Knee Right Adele Mcdonald P.A. [facility] Procedures PT Ongoing treatment [address] [place] [address] Referral ID Status Reason Start Date Expiration Date Visits V isits Requested Authorized [id number] Canceled 03/13/2021 09/18/2021 99 20 Encounter Details Date Type Department Care Team Description 04/29/2021 Clinical Support Department of Physical Adele Mcdonald, P.ASailaja [address] [place] [address] Pain Knee Right Medicine and David Mcintosh, P.T., D.P.T. Rehabilitation in [place], [place] [address] [place] [phone] Social History Tobacco Use Types Packs/Day Years [...] Right Knee Pain Onset Date: 03/31/21 Payor: [employer] / Plan: [employer] OPEN ACCESS PLUS / Product Type: PPO [...] Department of Physical Medicine and Rehabilitation in [address] [address] Dept: [phone] documented in this encounter Plan of Treatment Not on filedocumented as of this encounter Visit Diagnoses Diagnosis Pain Knee Right documented in this encounter
--- OUTSIDE RECORDS SUMMARY | 2022-06-21 11:32 | XMS_ITS | Encounter Summary ---
:1970 Author Organization [facility] Address [address] [place] [address] Care Team Providers Name Role Phone Unavailable Primary Care Provider Unavailable Reason for Visit Physical Therapy (Routine) - Canceled Specialty Diagnoses / Procedures Referred By Contact Refer red To Contact Diagnoses Pain Knee Right Adele Mcdonald P.A. [facility] Procedures PT Ongoing treatment [address] [place] [address] Referral ID Status Reason Start Date Expiration Date Visits V isits Requested Authorized [id number] Canceled 03/13/2021 09/18/2021 99 20 Encounter Details Date Type Department Care Team Description 04/22/2021 Clinical Support Department of Physical Adele Mcdonald, P.ASailaja [address] [place] [address] Pain Knee Right Medicine and David Mcintosh, P.T., D.P.T. Rehabilitation in [place], [place] [address] [place] [phone] Social History Tobacco Use Types Packs/Day Years [...] Right Knee Pain Onset Date: 03/31/21 Payor: [employer] / Plan: [employer] OPEN ACCESS PLUS / Product Type: PPO [...] back and forth: 20 times Access Code: [email or web address] URL: [email or web address] Date: 04/22/2021 Prepared by: Fredrick Crowell Home [...] Department of Physical Medicine and Rehabilitation in [address] [address] Dept: [phone] documented in this encounter Plan of Treatment Not on filedocumented as of this encounter Visit Diagnoses Diagnosis Pain Knee Right documented in this encounter
--- OUTSIDE RECORDS SUMMARY | 2022-06-21 11:32 | XMS_ITS | Encounter Summary ---
:[address] [facility] Address [address] [place] [address] Care Team Providers Name Role Phone Unavailable Primary Care Provider Unavailable Reason for Visit Reason Comments Ankle Pain 47 y/o m presents with pain in l achilles and swollen outer ankle since yesterday. Denies any injury , has been using home remediesbut rates pain an 8. Encounter Details Date Type Department Care Team Description 01/27/2018 Emergency [place] [facility] Hayden Fan, Pse udogout Ankle Left Department M.D. (Primary Dx) [address] [place] [address] [phone] Social History Tobacco Use Types Packs/Day Years [...] sent through Care Everywhere. Calcium Pyrophosphate Deposition (Sammarinese)documented in this encounter Medications at Time of [...] 0 zide (for_DYAZIDE) 37.5-25 mg per capsule albuterol (for_PROVENTIL Inhale 2 puffs. 0 2016 HFA,VENTOLIN HFA) 90 mcg/actuation inhaler ketorolac (TORADOL) 10 mg Take 1 tablet [...] Acid, S 7.0 3.7 - 8.0 01/27/2018 [facility] mg/dL 12:16 PM [facility] Specimen Anatomical Collection Method Collection Time Receive d Time (Source) Location / / Volume Laterality Blood (Blood, 01/27/2018 11:33 01/27/2018 Venous) AM CDT 11:59 AM CDT Hayden Fan M.D. LAB BLOOD ADD-ON Performing Organization Address City/State/ZIP Code Phon e Number [place] [address] [place] [address] [facility] (ABNORMAL) CBC with Differential (01/27/2018 11:33 AM CDT) [facility] Method Time Signature Hemoglobin 15.3 13.2 - 01/27/2018 [facility] 16.6 g/dL 11:44 AM [facility] Hematocrit 44.5 38.3 - 01/27/2018 [facility] 48.6 % 11:44 AM [facility] Erythrocytes 4.84 4.35 - 01/27/2018 [facility] 5.65 11:44 AM [facility] x10(12)/L [facility] MCV 91.9 78.2 - 01/27/2018 [facility] 97.9 fL 11:44 AM [facility] RBC Distrib Width 12.9 11.8 - 01/27/2018 [facility] 14.5 % 11:44 AM [facility] Platelet Count 266 135 - 317 01/27/2018 [facility] x10(9)/L 11:44 AM [facility] Leukocytes 9.3 3.4 - 9.6 01/27/2018 [facility] x10(9)/L 11:44 AM [facility] Neutrophils 7.07 (H) 1.56 - 01/27/2018 [facility] 6.45 11:44 AM CDT [facility] x10(9)/L [facility] [place] [facility] Lymphocytes 1.13 0.95 - 01/27/2018 [facility] 3.07 11:44 AM CDT [facility] x10(9)/L [facility] [place] [facility] Monocytes 0.82 (H) 0.26 - 01/27/2018 [facility] 0.81 11:44 AM CDT [facility] x10(9)/L [facility] [place] [facility] Eosinophils 0.18 0.03 - 01/27/2018 [facility] 0.48 11:44 AM CDT [facility] x10(9)/L [facility] [place] [facility] Basophils 0.08 0.01 - 01/27/2018 [facility] 0.08 11:44 AM CDT [facility](9[facility] [place] [facility] Specimen Anatomical Collection Method Collection Time Receive d Time (Source) Location / / Volume Laterality Blood (Blood, 01/27/2018 11:33 01/27/2018 Venous) AM CDT 11:40 AM CDT Hayden Fan M.D. LAB BLOOD ADD-ON Performing Organization Address City/State/ZIP Code Phon e Number [facility] [address] [place] [address] [facility] documented in this encounter Visit Diagnoses Diagnosis Pseudogout Ankle Left - Primary documented in this encounter
--- OUTSIDE RECORDS SUMMARY | 2022-06-21 11:34 | XMS_ITS | Encounter Summary ---
:1970 Author Organization [facility] Address [address] [place] [address] Care Team Providers Name Role Phone Jossue Chapin MD Primary Care Provider Encounter Details Date Type Department Care Team Description 11/24/2020 Lab Visit [facility] Laboratory Preop examination [id number] [place] [address] Social History Tobacco Use [...] Preop examination Resu lts for this CORONAVIRUS ACCOUNTS RECEIVABLE COLLECTOR procedure are i n the results section. documented in this encounter Results Asymptomatic - 2019 Novel Coronavirus (COVID-19) (11/24/2020 9:20 AM ACCOUNTS RECEIVABLE COLLECTOR) [facility] Method Time Signature COVID-19 Not Not 11/24/2020 [facility] Interpretation Detected Detected 6:26 PM [facility] ACCOUNTS RECEIVABLE COLLECTOR Specimen Anatomical Collection Method Collection Time Receive d Time (Source) Location / / Volume Laterality Swab (Source Non-blood 11/24/2020 9:20 AM 9:33 Required) Collection / ACCOUNTS RECEIVABLE COLLECTOR AM ACCOUNTS RECEIVABLE COLLECTOR Unknown Narrative [facility] - 11/24/2020 6:26 PM ACCOUNTS RECEIVABLE COLLECTOR Test performed by Extra Hand Mediated Amplification. TMA has been shown to be equivalent to commercial real-time PCR t ests. This test has been authorized by the FDA under an Emergency Use Authorization (EUA) for use by authorized laboratories. Jossue Chapin MD LAB_1 Performing Organization Address City/State/ZIP Code Phon e Number [facility] [address] [address] documented in this encounter Visit Diagnoses Diagnosis Preop examination Preoperative examination, unspecified documented in this encounter Care Teams Internal Investigator Relationship Specialty Start Date End Date Jossue Chapin MD PCP - General 09/26/181999 [place] [address] documented as of this encounter
--- OUTSIDE RECORDS SUMMARY | 2022-06-21 11:34 | XMS_ITS | Encounter Summary ---
:1970 Author Organization [facility] Address [address], [place] [address] Care Team Providers Name Role Phone Raulito Saez Yemi LUNDBERG CNP Primary Care Provider [phone] Reason for Visit Reason Comments Follow-up Encounter Details Date Type Department Care Team Description 01/21/2015 Office Visit [place] [facility] Brenda Copeland, Unspecified asthma(493.90) ( Primary Dx); [address] [facility] Nasal polyp; [place] [address] [address] [place] Allergic rhinitis, cause uns pecified [phone] [place] [address] (Wo rk) Social History Tobacco [...] Filed: 02/03/15918 Note Time: 01/21/151602 Status: Signed Field Specialist: Brneda Copeland MD (Physician) NAME: HAYDEN AMARO MR#: [id number] CSN: [id number] AUTHENTICATING CLINICIAN: Brenda Copeland MD CONFIRM #: [id number] LOC: 514 CLINIC PROGRESS NOTE DATE OF [...] care provider, who is outside of the [employer] system, who provided antibiotics, which did seem [...] senior year of high school and start [employer]. Two Labradoodle dogs. Nonsmoker. PHYSICAL EXAMINATION: VITAL [...] year or p.r.n. [place]LE:MEDQ C: CONFIRM #: [id number] documented in this encounter Plan of Treatment Not on filedocumented as of this encounter Visit Diagnoses Diagnosis Unspecified asthma(493.90) ([facility]) - Prima ry Unspecified asthma Nasal polyp Unspecified nasal polyp Allergic rhinitis, cause unspecified documented in this encounter Care Teams Healthcare Science Specialist Relationship Specialty Start Date End Date Raulito Saez, DYEING MACHINE FEEDER, RN SUPPLEMENTAL PCP - General 12/24/10 09/25/18 documented as of this encounter
--- OUTSIDE RECORDS SUMMARY | 2022-06-21 11:34 | XMS_ITS | Encounter Summary ---
:1970 Author Organization [facility] Address [address], [place] [address] Care Team Providers Name Role Phone Jossue Chapin MD Primary Care Provider Reason for Visit Reason Comments Refill Encounter Details Date Type Department Care Team Description 10/09/2019 Refill [facility] [address] Brenda Guaman MD Refill [address] [place] [address] [place], [place] [address] (Wo rk) Social History Tobacco Use Types [...] Wixela. Refill approved per SO. Note complete. SON INSPECTION LABORATORY ASSISTANT documented in this encounter Plan of Treatment Not on filedocumented as of this encounter Visit Diagnoses Not on filedocumented in this encounter Care Teams Print Shop Chief Clerk Relationship Specialty Start Date End Date Jossue Chapin MD PCP - General 09/26/181999 [place] [address] documented as of this encounter
--- OUTSIDE RECORDS SUMMARY | 2022-06-21 11:34 | XMS_ITS | Encounter Summary ---
:1970 Author Organization [employer] Address [address] [place] [address] Care Team Providers Name Role Phone Jossue Chapin MD Primary Care Provider Reason for Visit Reason Comments Follow-up Asthma Encounter Details Date Type Department Care Team Description 12/15/2021 Office Visit [place] [facility] Brenda Copeland, Moderate persistent asthma, unspecified whether complicated (Primary Dx); [address] Otf Berkowitz MD Allergic rhinitis, unspecified seasonali ty, unspecified trigger; [place] [address] [facility] Nasal polyp [phone] [place] [address] (Wo rk) Social History Tobacco [...] polyp documented in this encounter Care Teams Dietetic Aide Relationship Specialty Start Date End Date Jossue Chapin MD PCP - General 09/26/181999 [place] [address] documented as of this encounter
--- OUTSIDE RECORDS SUMMARY | 2022-06-21 11:34 | XMS_ITS | Encounter Summary ---
:1970 Author Organization [facility] Address [address] [address] Care Team Providers Name Role Phone Jossue Chapin MD Primary Care Provider Encounter Details Date Type Department Care Team Description 12/15/2021 Orders Only [facility] DEPARTMENT Provider, Ladonna [place] [address] Social History Tobacco Use Types Packs/Day Years [...] Date/Time Associated Diagnosis Comme nts PULMONARY TEST WI 12/15/2021 Results fo r this procedure are in the resu lts section. documented in this encounter Results PULMONARY TEST WI (12/15/2021) Narrative This result has an attachment that is no t available. Interface Provider DUMMY/OTHER/AR documented in this encounter Visit Diagnoses Not on filedocumented in this encounter Care Teams Road Roller Operator Hot Mix Relationship Specialty Start Date End Date Jossue Chapin MD PCP - General 09/26/181999 [place] [address] documented as of this encounter
--- OUTSIDE RECORDS SUMMARY | 2022-06-21 11:34 | XMS_ITS | Encounter Summary ---
:1970 Author Organization [facility] Address [address], [place] [address] Care Team Providers Name Role Phone Jossue Chapin MD Primary Care Provider Reason for Visit Reason Comments Follow-up Encounter Details Date Type Department Care Team Description 09/26/2018 Office Visit [facility] Brenda Copeland, Moderate persistent asthma, unspecified whether complicated (Primary Dx); [address] [place] Berk[place] MD Nasal polyp; [place] [address] [facility] Allergic rhinitis, unspecifi ed seasonality, unspecified trigger [phone] [place] [address] (Wo rk) Social History Tobacco [...] Comments Blood Pressure 110/70 09/26/2018 11:30 AM SANITARY [place]APK[place] MACHINE TENDER Pulse 74 09/26/2018 11:30 AM SANITARY [place] MACHINE TENDER Temperature - - Respiratory Rate - - Oxygen Saturation 100% 09/26/2018 11:30 AM SANITARY [place]APK[place] MACHINE TENDER Inhaled Oxygen Concentration - - Weight 99.8 kg (220 lb) 09/26/2018 11:30 AM SANITARY NAPK[place] MACHINE TENDER Height 182.9 cm (6') 09/26/2018 11:30 AM SANITARY NAPK[place] MACHINE TENDER Body Mass Index 29.84 09/26/2018 11:30 AM SANITARY NAPK[place] MACHINE TENDER documented in this encounter Patient Instructions Patient InstructionsBrenda Copeland MD - 09/26/2018 11:00 AM CST Whatever you are doing, keep it up. Your breathing test is much better than what it was at last visit. If the cost of medication changes, call me to discuss alternatives. TARY NAPKIN MACHINE TENDER documented in this encounter Progress Notes Brenda Copeland MD - 09/26/2018 12:00 PM CST NAME: HAYDEN AMARO MR#: [id number] CSN: [id number] AUTHENTICATING CLINICIAN: Brenda Copeland MD CONFIRM #: [id number] LOC: 514 CLINIC PROGRESS NOTE DATE OF [...] oldest in a psychology graduate program at [employer]. One 15-year-old. Three dogs all poodle mixes. 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 Lifetime [...] year or p.r.n. [facility]:NOHEMY C: CONFIRM #: [id number] TARY NAPKIN MACHINE TENDER Brenda Copeland MD - 09/26/2018 11:00 AM CST This office note has been dictated. TARY NAPK[place] MACHINE TENDER documented in this encounter Plan of Treatment Not on filedocumented as of this encounter Visit Diagnoses Diagnosis Moderate persistent asthma, unspecified whether complicated ([facility]) - Primary Nasal polyp Unspecified nasal polyp Allergic rhinitis, unspecified seasonali ty, unspecified trigger documented in this encounter Care Teams Stitcher Tape Controlled Machine Relationship Specialty Start Date End Date Jossue Chapin MD PCP - General 09/26/181999 [place] [address] documented as of this encounter
--- OUTSIDE RECORDS SUMMARY | 2022-06-21 11:34 | XMS_ITS | Encounter Summary ---
:1970 Author Organization [facility] Address [address], [place] [address] Care Team Providers Name Role Phone Raulito Saez CHITO LUNDBERG Primary Care Provider [phone] Reason for Visit Reason Comments Refill Encounter Details Date Type Department Care Team Description 06/21/2016 Refill [facility] Brenda Copeland MD Refill [address] [facility] [address] [place] [address] [place] [address] (Wo rk) Social History Tobacco Use Types Packs/Day Years Used Date Smoking Tobacco: Former Cigarettes 1 Quit : 1990 Alcohol Use Standard Drinks/Week Comments Yes 3 (1 standard drink = 0.6 oz pure alcoho l) Sex Assigned at Date Recorded Not on file documented as of this encounter Nursing Notes Sherri Marin RN - 06/23/2016 8:25 AM CDT Rx sent per [facility]. Brenda Copeland MD - 06/22/2016 5:27 PM CDT Prednisone 20 mg bid for 5-7 days. Sherri Marin RN - 06/22/2016 5:00 PM CDT Detailed message left for patient, notifying him we will send rx. [facility] - please clarify sig, rx that [...] Browne RN - 06/22/2016 2:56 PM CDT [facility] pt last seen 04/20/16. Follow up plan 1 year. Refill request for Pred. [employer] Employee called pt and left voicemail, requesting a return call to verify need of medication. Brenda Copeland MD - 06/22/2016 2:40 PM CDT Please contact Hayden and ask why he needs to refill documented in this encounter Plan of Treatment Not on filedocumented as of this encounter Visit Diagnoses Not on filedocumented in this encounter Care Teams Dye Operator Relationship Specialty Start Date End Date Raulito Saez, PROFESSIONAL DEVELOPMENT MANAGER, HOME HEALTH SCHEDULER PCP - General 12/24/10 09/25/18 documented as of this encounter
--- OUTSIDE RECORDS SUMMARY | 2022-06-21 11:34 | XMS_ITS | Encounter Summary ---
:1970 Author Organization [employer] Address [address], [place] [address] Care Team Providers Name Role Phone Raulito Saez CHITO LUNDBERG Primary Care Provider [phone] Reason for Visit Reason Comments Refill Encounter Details Date Type Department Care Team Description 04/17/2016 Refill [facility] Brenda Copeland MD Refill [address] [place] [id number] [place] [address] [phone] (Wo rk) Social History Tobacco Use Types Packs/Day Years Used Date Smoking Tobacco: Never Assessed Sex Assigned at Date Recorded Not on file documented as of this encounter Nursing Notes Leonor Finney RN - 04/20/2016 9:23 AM CDT Refill denied per [facility]. Pt will have medication refilled at f/u appt 04/20/16. Note complete. Brenda Copeland MD - 04/19/2016 1:22 PM CDT Wait until appt tomorrow R SELECTOR Benita Corona RN - 04/19/2016 9:22 AM CDT [facility] pt:last seen 01/21/15.Has f/u appt tomorrow 04/20/16.ok to refill Advair 250/50 x 1, or wait til appt tomorrow?Please advise. documented in this encounter Plan of Treatment Not on filedocumented as of this encounter Visit Diagnoses Not on filedocumented in this encounter Care Teams Market Superintendent Relationship Specialty Start Date End Date Raulito Saez, STEAMSHIP AGENT, LIAISON INSPECTION LABORATORY ASSISTANT PCP - General 12/24/10 09/25/18 documented as of this encounter
--- OUTSIDE RECORDS SUMMARY | 2022-06-21 11:34 | XMS_ITS | Encounter Summary ---
:1970 Author Organization [employer] Address [address], [place] [address] Care Team Providers Name Role Phone Jossue Chapin MD Primary Care Provider Reason for Visit Reason Comments Follow-up Encounter Details Date Type Department Care Team Description 11/19/2019 Office Visit [facility] [address] Brenda Copeland, Mode rate persistent asthma, unspecified whether complicated (Primary Dx); Allergy Allergic rhinitis, unspecified seasonali ty, unspecified trigger; [address] [facility] [address] Acute recurrent [place]itis[place] [phone] (Wo rk) Social History Tobacco Use Types [...] Comments Blood Pressure 142/94 11/19/2019 3:56 PM NETWORK CONTRACTOR Pulse 59 11/19/2019 3:56 PM NETWORK CONTRACTOR Temperature - - Respiratory Rate - - Oxygen Saturation 99% 11/19/2019 3:56 PM NETWORK CONTRACTOR Inhaled Oxygen Concentration - - Weight 99.8 kg (220 lb) 11/19/2019 3:56 PM NETWORK CONTRACTOR Height 182.9 cm (6') 11/19/2019 3:56 PM NETWORK CONTRACTOR Body Mass Index 29.84 11/19/2019 3:56 PM NETWORK CONTRACTOR documented in this encounter Patient Instructions Patient [...] know. Oral steroids maybe your only option. ORK CONTRACTOR documented in this encounter Progress Notes Brenda Copeland MD - 11/19/2019 4:00 PM CST Hayden is a 49-year-old white male with asthma, chronic sinusitis, and history of nasal polyposis along with allergic rhinitis (positive to most antigens tested). Prior to undergoing a Robert fundoplication years ago, reflux complicated the picture. Hayden has several questions including a if Advair [...] Nonsmoker. 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 PHYSICAL EXAM: BP (!) 142/94 (BP Location: [...] with me 1 year or p.r.n. ?? ORK CONTRACTOR documented in this encounter Plan of Treatment Not on filedocumented as of this encounter Visit Diagnoses Diagnosis Moderate persistent asthma, unspecified whether complicated (HRC) - Primary Allergic rhinitis, unspecified seasonali ty, unspecified trigger Alopecia areata Acute recurrent sinusitis, unspecified l ocation documented in this encounter Care Teams Color Worker Relationship Specialty Start Date End Date Jossue Chapin MD PCP - General 09/26/181999 [place] [address] documented as of this encounter
--- OUTSIDE RECORDS SUMMARY | 2022-06-21 11:34 | XMS_ITS | Clinical Summary ---
:1970 Author Organization [employer] [place] [address] Care Team Providers Name Role Phone Santino [...] Comments Blood Pressure 162/92 10/22/2020 1:54 PM WORKERS COMPENSATION CLAIMS SPECIALIST Pulse 74 10/22/2020 1:54 PM WORKERS COMPENSATION CLAIMS SPECIALIST Temperature - - Respiratory Rate 16 05/27/2017 10:36 AM CDT Oxygen Saturation 97% 10/22/2020 1:54 PM WORKERS COMPENSATION CLAIMS SPECIALIST Inhaled Oxygen Concentration - - Weight 105.1 kg (231 lb 11.2 oz) 10/22/2020 1:54 PM WORKERS COMPENSATION CLAIMS SPECIALIST Height 182.9 cm (6') 11/21/2019 10:00 AM WORKERS COMPENSATION CLAIMS SPECIALIST Body Mass Index 31.42 11/21/2019 10:00 AM WORKERS COMPENSATION CLAIMS SPECIALIST Plan of Treatment Health Maintenance Due Date [...] Addre ss Type Group [employer] [id number] 2019-[address]andru [id number] [place] [address] 20 1 11 (Home) [facility] [place] [address] Care Teams Cork Molder Relationship Specialty Start Date End Date Santino Sauceda MD PCP - General Family Practice 10/22/201999 [place] [address]
--- OUTSIDE RECORDS SUMMARY | 2022-06-21 11:34 | XMS_ITS | Clinical Summary ---
:1970 Author Organization [facility] Address [address] [address] Care Team Providers Name Role Phone Jossue [...] for each transition of care or referral. [employer] Allergies Active Allergy Reactions Severity Noted Date [...] Nasal polyp 02/22/2013 Overweight 02/22/2013 Overview: Overweight(278.02) ([facility]) Anemia 04/07/2012 Diarrhea 04/07/2012 Diverticulitis of colon with perforation 04/05/2012 Asthma 02/23/2003 Overview: Asthma NOS Esophageal reflux 02/23/2003 Overview: Gastroesophageal Reflux Disease Allergic rhinitis 02/23/2003 Overview: Rhinitis Allergic NOS Immunizations Name Administration Dates Next Due Flu Vac Preserv Free (3+yrs) 07/22/2011, 07/14/2010, 009, 07/11/2007, 09/15/2006 Influenza IIV4 (Quadrivalent) 0.5mL 07/05/2017, 07/29/2016 (65596) Influenza, Unspecified Formulation 06/13/1998 PPSV23 (Pneumovax) 05/09/1998 [...] Comments Blood Pressure 123/84 11/26/2020 3:27 PM BUCKLE STRAP DRUM OPERATOR Pulse 71 11/26/2020 3:27 PM BUCKLE STRAP DRUM OPERATOR Temperature 36.6 ??C (97.9 ??F) 02/22/2013 8:59 AM CDT Respiratory Rate 16 02/22/2013 8:59 AM CDT Oxygen Saturation 97% 11/26/2020 3:27 PM BUCKLE STRAP DRUM OPERATOR Inhaled Oxygen Concentration - - Weight 103.1 [...] Typ e / Group Dates MENG FAN [id number] 2021-Pres [phone] [address] [facility] [address] [address] [place] [address] [address] (Home) [facility] [phone] [address] (Work) [place] [address] Hayden Mckay Personal/Family Self 1970 [address] (Home) [facility] [phone] SE (Work) [place] [address] Advance Directives Latest Code Status on File Code Status Date Activated Date Inactivated Comments Full Code 04/05/2012 10:27 PM 04/08/2012 5:55 PM Care Teams Repairer General Relationship Specialty Start Date End Date Jossue Chapin MD PCP - General 09/26/181999 [place] [address]
--- OUTSIDE RECORDS SUMMARY | 2022-06-21 11:34 | XMS_ITS | Encounter Summary ---
:1970 Author Organization [employer] Address [address] [address] Care Team Providers Name Role Phone Jossue Chapin MD Primary Care Provider Encounter Details Date Type Department Care Team Description 11/19/2019 Orders Only Initial Department Provider, Oc, [facility] DEBBIE REEDER MD [place], [place] [address] Interface provider [phone] [place] [address] Social History Tobacco Use Types Packs/Day Years [...] Bureau Relationship Specialty Start Date End Date Jossue Chapin MD PCP - General 09/26/181999 [place] [address] documented as of this encounter
--- OUTSIDE RECORDS SUMMARY | 2022-06-21 11:34 | XMS_ITS | Encounter Summary ---
:1970 Author Organization [email or web address] Address [address] [address] Care Team Providers Name Role Phone Jossue Chapin MD Primary Care Provider Reason for Visit Reason Comments Refill Encounter Details Date Type Department Care Team Description 01/01/2020 Telephone [facility] [address] Brenda Guaman MD Refill [address] [place] [address] [place], [place] [phone] (Wo rk) Social History Tobacco Use Types [...] on filedocumented in this encounter Care Teams Assistant Toddler Teacher Relationship Specialty Start Date End Date Jossue Chapin MD PCP - General 09/26/181999 [place] [address] documented as of this encounter
--- OUTSIDE RECORDS SUMMARY | 2022-06-21 11:34 | XMS_ITS | Encounter Summary ---
:1970 Author Organization [facility] Address [address], [place] [address] Care Team Providers Name Role Phone Raulito Saez Yemi LUNDBERG CNP Primary Care Provider [phone] Reason for Visit Reason Comments Refill Encounter Details Date Type Department Care Team Description 06/27/2017 Refill [facility] Brenda Copeland MD Refill [address] [facility] [place], [place] [phone] [place] [phone] (Wo rk) Social History Tobacco Use Types Packs/Day Years Used Date Smoking Tobacco: Former Cigarettes 1 Quit : 1990 Alcohol Use Standard Drinks/Week Comments Yes 3 (1 standard drink = 0.6 oz pure alcoho l) Sex Assigned at Date Recorded Not on file documented as of this encounter Nursing Notes Deja Bosch RN - 06/27/2017 2:59 PM CDT Per [facility] order Advair script sent to pharmacy. Message complete. Deja Bosch RN - 06/27/2017 2:57 PM CDT Pt has appt on 06/28/17 Brenda Copeland MD - 06/27/2017 1:13 PM CDT OK Advair refill ONE TIME ONLY IF f/u appt is made. Deja Bosch RN - 06/27/2017 12:41 PM CDT PJ [...] on filedocumented in this encounter Care Teams Motion Designer Relationship Specialty Start Date End Date Raulito Saez, EQUIPMENT MAINT TECH, ENGINEERING CONSULTANT PCP - General 12/24/10 09/25/18 documented as of this encounter
--- OUTSIDE RECORDS SUMMARY | 2022-06-21 11:34 | XMS_ITS | Encounter Summary ---
:1970 Author Organization [employer] Address [address] [address] Care Team Providers Name Role Phone Raulito Saez Yemi LUNDBERG CNP Primary Care Provider [phone] Reason for Visit Reason Comments Follow-up asthma Encounter Details Date Type Department Care Team Description 07/05/2017 Office Visit [facility] Brenda Copeland, Asthma, unspecified asthma s everity, unspecified whether complicated, unspecified whether persistent (Primary Dx); [address] Ot[address] Berkowitz MD Need for prophylactic vaccination and in oculation against influenza; [place] [address] [address] Chronic sinusitis, unspecifi ed location [phone] [place] [address] Social History Tobacco Use Types [...] 12:26 PM CDT NAME: HAYDEN AMARO MR#: [id number] CSN: [id number] AUTHENTICATING CLINICIAN: Brenda Copeland MD CONFIRM #: [id number] LOC: 514 CLINIC PROGRESS NOTE DATE OF [...] year or p.r.n. EAGLE:NOHEMY C: CONFIRM #: [id number] Brenda Copeland MD - 07/05/2017 9:00 AM CDT Complete note dictated. documented in this encounter Plan of Treatment Not on filedocumented as of this encounter Visit Diagnoses Diagnosis Asthma, unspecified asthma severity, uns pecified whether complicated, unspecified whether persistent (HRC) - Primary Need for prophylactic vaccination and in oculation against influenza Chronic sinusitis, unspecified location documented in this encounter Care Teams Materials Development Engineer Relationship Specialty Start Date End Date Raulito Saez, DRUG ABUSE COUNSELOR, DIRECTOR CLOUD TRANSFORMATION PCP - General 12/24/10 09/25/18 documented as of this encounter
--- OUTSIDE RECORDS SUMMARY | 2022-06-21 11:34 | XMS_ITS | Encounter Summary ---
:1970 Author Organization [employer] Address [address], [place] [address] Care Team Providers Name Role Phone Raulito Saez Yemi LUNDBERG CNP Primary Care Provider [phone] Reason for Visit Reason Comments Refill Encounter Details Date Type Department Care Team Description 04/28/2017 Refill [facility] Brenda Copeland MD Refill [address] [place] [phone] [place] [address] (Wo rk) Social History Tobacco Use [...] on filedocumented in this encounter Care Teams Seconds Handler Relationship Specialty Start Date End Date Raulito Saez, ELECTRONICS ENGINEERING MANAGER, TOBACCO CHECKOUT CLERK PCP - General 12/24/10 09/25/18 documented as of this encounter
--- OUTSIDE RECORDS SUMMARY | 2022-06-21 11:34 | XMS_ITS | Encounter Summary ---
:1970 Author Organization [facility] Address [address], [place] [address] Care Team Providers Name Role Phone Raulito Saez Yemi LUNDBERG CNP Primary Care Provider [phone] Reason for Visit Reason Comments Refill Encounter Details Date Type Department Care Team Description 08/31/2018 Refill [facility] Brenda Copeland MD Refill [address] [place] 7574[address] [place], [place] [phone] [place] [address] (Wo rk) Social History Tobacco Use [...] sent per MD's note lucia. Note complete. S ACCOUNT COORDINATOR Gila Guallpa MD - 09/01/2018 3:05 PM CST May fill x 1. S ACCOUNT COORDINATOR Stephanie Abdalla, RN - 09/01/2018 11:37 AM CST [facility] pt LV 07/05/17 , RTC one year, appt scheduled 09/26/18. SV - please advise for PJ ok to fill? S ACCOUNT COORDINATOR documented in this encounter Plan of Treatment Not on filedocumented as of this encounter Visit Diagnoses Not on filedocumented in this encounter Care Teams Stroke Coordinator Relationship Specialty Start Date End Date Raulito Saez, INJECTION MOLDING MACHINE SETTER, SOLAR PHOTOVOLTAIC CREW LEAD PCP - General 12/24/10 09/25/18 documented as of this encounter
--- OUTSIDE RECORDS SUMMARY | 2022-06-21 11:34 | XMS_ITS | Encounter Summary ---
:1970 Author Organization [employer] Address [address] [address] Care Team Providers Name Role Phone Raulito Saez Yemi LUNDBERG CNP Primary Care Provider [phone] Encounter Details Date Type Department Care Team Description 09/01/2016 Lab Visit [facility] Alopecia areata [address] [place] [address] Social History Tobacco Use Types Packs/Day Years [...] R esults for this ANTIGEN ANTIBODIES AM ORE GRADER procedure are in the results section. THYROID STIMULATING Routine 09/01/2016 11:42 Resu lts for this HORMONE AM ORE GRADER procedure are i n the results section. CREATININE / GFR Routine 09/01/2016 11:42 Alopecia areata Resu lts for this AM ORE GRADER procedure are i n the results section. COMPLETE BLOOD Routine 09/01/2016 11:42 Alopecia areata Result s for this COUNT-W/DIFF AM ORE GRADER procedure are i n the results section. DIFFERENTIAL Routine 09/01/2016 11:42 Results for this AM ORE GRADER procedure are i n the results section. DNA DOUBLE STRANDED Routine 09/01/2016 11:42 Alopecia areata R esults for this ANTIBODY AM ORE GRADER procedure are i n the results section. C-REACTIVE PROTEIN Routine 09/01/2016 11:42 Alopecia areata Re sults for this AM ORE GRADER procedure are i n the results section. DAMION SCREEN Routine 09/01/2016 11:42 Alopecia areata Results for this AM ORE GRADER procedure are i n the results section. AST Routine 09/01/2016 11:42 Alopecia areata Results for this AM ORE GRADER procedure are i n the results section. ESR Routine 09/01/2016 11:42 Alopecia areata Results for this AM ORE GRADER procedure are i n the results section. documented in this encounter Results Thyroid Stimulating Hormone (09/01/2016 11:42 AM ORE GRADER) athologist Signature Thyroid 1.30 0.20 - PN SOFT Stimulating 4.50 Hormone uIU/mL Specimen Anatomical Collection Method Collection Time Receive d Time (Source) Location / / Volume Laterality 09/01/2016 11:42 09/01/2016 3:44 AM ORE GRADER PM ORE GRADER Narrative PN SOFT - 09/01/2016 4:51 PM ORE GRADER Performed at [address] [address] CLIA number [id number] Finn Laughlin MD LAB_1 Performing Organization Address City/State/[facility] Code Phon e Number PN SOFT [address] [place] [address] Differential (09/01/2016 11:42 AM ORE GRADER) athologist Signature Absolute 2.9 1.8 - 8.0 [...] / Volume Laterality 09/01/2016 11:42 09/01/2016 AM ORE GRADER 11:41 AM ORE GRADER Narrative PN SOFT - 09/01/2016 11:47 AM ORE GRADER Performed at [facility], [address] [place] [address] CLIA number [id number] Finn Laughlin MD LAB_1 Performing Organization Address City/[facility] Code Phon e Number PN SOFT [address] [place] [address] DNA - Anti-dsDNA Antibody (09/01/2016 11:42 AM ORE GRADER) athologist Signature Anti-DNA Ab see below Negative PN SOFT Comment: <1:10 Negative Specimen Anatomical Collection Method Collection Time Receive d Time (Source) Location / / Volume Laterality 09/01/2016 11:42 09/01/2016 3:45 AM ORE GRADER PM ORE GRADER Narrative PN SOFT - 09/02/2016 1:07 PM ORE GRADER Performed at [facility], [address] [place] [address] CLIA number [id number] Finn Laughlin MD LAB_1 Performing Organization Address City/[facility] Code Phon e Number PN SOFT [address] [place] [address] Extractable Nuclear Antigen Antibodies (09/01/2016 11:42 AM ORE GRADER) athologist Signature SUSHANT To ENAMEL DIPPER 1 0 - 40 PN SOFT Antibody AU/mL Comment: INTERPRETIVE INFORMATION: Ribonucleic Pr otein (SUSHANT)Antibody, IgG ??29 AU/mL or Less ............. Negati ve ??30 - 40 AU/mL ................ Equivo nicholas ??41 AU/mL or Greater .......... Positi ve ENAMEL DIPPER antibody is seen in 95-100 percent o f mixed connective tissue disease and is considered specifi c for this syndrome if other antibodies are negative; ENAMEL DIPPER is also present in 20-30 percent of systemic lupus erythema tosus and 15-25 percent of progressive systemic sclerosi s. ENAMEL DIPPER antigens also contain epitopes that are immunolog ically identical to free Jamison antigens, therefore, the Len h antibody response must be considered when interpreting ENAMEL DIPPER results. Performed by [facility], [address] [place] [address],[place] [address] [email or web address], Toni Chaney MD - Lab. Director SUSHANT [...] Volume Laterality 09/01/2016 11:42 09/01/2016 3:45 AM ORE GRADER PM ORE GRADER Narrative PN SOFT - 09/02/2016 11:23 PM ORE GRADER Performed at [facility] [address] [place] [address] CLIA number [id number] Finn Laughlin MD LAB_1 Performing Organization Address City/[facility] Phon e Number PN SOFT [address] [place] [address] DAMION - Antinuclear Antibody (09/01/2016 11:42 AM ORE GRADER) athologist Signature Anti-Nuclear Negative Negative PN SOFT Ab Specimen Anatomical Collection Method Collection Time Receive d Time (Source) Location / / Volume Laterality 09/01/2016 11:42 09/01/2016 3:45 AM ORE GRADER PM ORE GRADER Narrative PN SOFT - 09/02/2016 1:10 PM ORE GRADER Performed at [address] [address] CLIA number [id number] Finn Laughlin MD LAB_1 Performing Organization Address City/[facility] Phon e Number PN SOFT [address] [place] [address] ESR - Sedimentation Rate (09/01/2016 11:42 AM ORE GRADER) Analysis Performed At Patho logist Time Signature Sedimentation Rate 5 0 - 15 PN SOFT mm/hr Specimen Anatomical Collection Method Collection Time Receive d Time (Source) Location / / Volume Laterality 09/01/2016 11:42 09/01/2016 AM ORE GRADER 11:41 AM ORE GRADER Narrative PN SOFT - 09/01/2016 12:18 PM ORE GRADER Performed at [facility], [address] [place] [address] CLIA number [id number] Finn Laughlin MD LAB_1 Performing Organization Address [facility] Phon e Number PN SOFT [address] [place] [address] (ABNORMAL) CRP - C Reactive Protein (09/01/2016 11:42 AM ORE GRADER) athologist Signature CRP 0.6 (H) 0.0 - 0.5 PN SOFT mg/dL Specimen Anatomical Collection Method Collection Time Receive d Time (Source) Location / / Volume Laterality 09/01/2016 11:42 09/01/2016 AM ORE GRADER 11:42 AM ORE GRADER Narrative PN SOFT - 09/01/2016 2:37 PM ORE GRADER Performed at [facility], [address] [place] [address] CLIA number [id number] Finn Laughlin MD LAB_1 Performing Organization Address City/[facility] Phon e Number PN SOFT [address] [place] [address] CBC - Complete Blood Count W/Diff (09/01/2016 11:42 AM ORE GRADER) athologist Signature White Blood Cell 5.0 3.8 [...] / Volume Laterality 09/01/2016 11:42 09/01/2016 AM ORE GRADER 11:41 AM ORE GRADER Narrative PN SOFT - 09/01/2016 11:47 AM ORE GRADER Performed at [facility], [address] [place] [address] CLIA number [id number] Finn Laughlin MD LAB_1 Performing Organization Address [facility] Code Phon e Number PN SOFT [address] [place] [address] AST - Aspartate Aminotransferase (09/01/2016 11:42 AM ORE GRADER) Patholo gist Method Time Signature Aspartate 22 10 - 40 PN SOFT Aminotransferase U/L Specimen Anatomical Collection Method Collection Time Receive d Time (Source) Location / / Volume Laterality 09/01/2016 11:42 09/01/2016 AM ORE GRADER 11:42 AM ORE GRADER Narrative PN SOFT - 09/01/2016 2:37 PM ORE GRADER Performed at [facility], [address] [place] [address] CLIA number [id number] Finn Laughlin MD LAB_1 Performing Organization Address [facility] Phon e Number PN SOFT [address] [place] [address] CREAT - Creatinine (09/01/2016 11:42 AM ORE GRADER) P athologist Signature Creatinine Serum 1.00 0.73 [...] / Volume Laterality 09/01/2016 11:42 09/01/2016 AM ORE GRADER 11:42 AM ORE GRADER Narrative PN SOFT - 09/01/2016 2:37 PM ORE GRADER Performed at [facility], [facility] [address] [place] [address] CLIA number [id number] Finn Laughlin MD LAB_1 Performing Organization Address [facility] Phon e Number PN SOFT [address] [place] [address] documented in this encounter Visit Diagnoses Diagnosis Alopecia areata documented in this encounter Care Teams Document Analyst Relationship Specialty Start Date End Date Raulito Saez, DIP GUIDER STOVES, SILK SCREEN PROCESSOR PCP - General 12/24/10 09/25/18 documented as of this encounter
--- OUTSIDE RECORDS SUMMARY | 2022-06-21 11:34 | XMS_ITS | Encounter Summary ---
:1970 Author Organization [employer] Address [address] [place] [address] Care Team Providers Name Role Phone Jossue Chapin MD Primary Care Provider Reason for Visit Reason Comments Follow-up Asthma Encounter Details Date Type Department Care Team Description 11/26/[address] [facility] [address] Brenda Copeland, Mode rate persistent asthma, unspecified whether complicated (Primary Dx); Allergy Allergic rhinitis, unspecified seasonali ty, unspecified trigger; [address] Cipriano al polyp; [address] [place] [address] [phone] (Wo rk) Social History Tobacco Use Types [...] Comments Blood Pressure 123/84 11/26/2020 3:27 PM [facility]PERINTENDENT DIVISION Pulse 71 11/26/2020 3:27 PM [facility] Temperature - - Respiratory Rate - - Oxygen Saturation 97% 11/26/2020 3:27 PM [facility] Inhaled Oxygen Concentration - - Weight 101.6 kg (224 lb) 11/26/2020 3:27 PM [facility] Height 182.9 cm (6') 11/26/2020 3:27 PM [facility] Body Mass Index 30.38 11/26/2020 3:27 PM [facility] documented in this encounter Patient Instructions Patient [...] until you tell me to do something [facility]ENT DIVISION documented in this encounter Progress Notes Brenda [...] by Rheumatology failed to provide answers. His radiology teacher to his outside the [employer] system asks for recent thyroid tests. Hayden [...] time spent with chart review and documentation. [facility] documented in this encounter Plan of Treatment Not on filedocumented as of this encounter Results TSH with Free T4 (if TSH Abnormal) (11/26/2020 4:21 PM [facility]) P athologist Signature TSH, Reflex 1.34 0.30 - 4.50 11/26/2020 [facility] uIU/mL 8:18 PM [facility] LABORATORY Specimen Anatomical Collection Method / Collection Time Recei randy Time (Source) Location / Volume Laterality Blood Venipuncture / 11/26/2020 4:21 11/26/2020 4:22 Unknown PM [facility] PM [facility] Narrative [facility] - 11/26/2020 8:18 P M [facility] Lab will automatically reflex to Free T4 when TSH results are outside of reference range for patient's age group. Brenda Copeland MD LAB_1 Performing Organization Address City/State/ZIP Code Phon e Number [facility] [address] [place] [address] documented in this encounter Visit Diagnoses Diagnosis Moderate persistent asthma, unspecified whether complicated (HRC) - Primary Allergic rhinitis, unspecified seasonali ty, unspecified trigger Nasal polyp Unspecified nasal polyp Alopecia areata documented in this encounter Care Teams Cloth Stock Sorter Relationship Specialty Start Date End Date Jossue Chapin MD PCP - General 09/26/181999 [place] [address] documented as of this encounter
--- OUTSIDE RECORDS SUMMARY | 2022-06-21 11:34 | XMS_ITS | Encounter Summary ---
:1970 Author Organization [employer] Address [address], [place] [address] Care Team Providers Name Role Phone Jossue Chapin MD Primary Care Provider Encounter Details Date Type Department Care Team Description 05/08/2020 shoshana De La Paz [phone] Social History Tobacco Use Types Packs/Day Years [...] an antibiotic. I sent a prescription to [facility] . I???ve prescribed high dose amoxicillin, which [...] 7 days Note: Refills: None Sent To: [facility] [address] [place] [address] [place], [place] [id number] Treatment Plan Self Care Tip Topics Inflammation [...] (amoxicillin) Advair Diskus (fluticasone propion-salmeterol) Allergies None [facility] Information [facility] [employer] We are an online clinic open 11/04. If you have any questions or comments about this visit, please call or email [email or web address]. documented in this encounter Plan of Treatment Not on filedocumented as of this encounter Visit Diagnoses Not on filedocumented in this encounter Care Teams Turnaround Engineer Relationship Specialty Start Date End Date Jossue Chapin MD PCP - General 09/26/181999 [place] [address] documented as of this encounter
--- OUTSIDE RECORDS SUMMARY | 2022-06-21 11:34 | XMS_ITS | Encounter Summary ---
:1970 Author Organization [employer] Address [address], [place] [address] Care Team Providers Name Role Phone Jossue Chapin MD Primary Care Provider Encounter Details Date Type Department Care Team Description 12/15/2021 Orders Only HIM DEPARTMENT Provider, Ladonna [place] [address] Social History Tobacco Use Types Packs/Day Years [...] on filedocumented in this encounter Care Teams Cumulative Effects Analyst Relationship Specialty Start Date End Date Jossue Chapin MD PCP - General 09/26/181999 [place] [address] documented as of this encounter
--- OUTSIDE RECORDS SUMMARY | 2022-06-21 11:34 | XMS_ITS | Encounter Summary ---
:1970 Author Organization [employer] Address [address], [place] [address] Care Team Providers Name Role Phone Raulito Saez CHITO LUNDBERG Primary Care Provider [phone] Reason for Visit Reason Comments CONSULT Encounter Details Date Type Department Care Team Description 09/01/2016 Initial Consult Finn Carter M D Alopecia areata (Primary Dx); Rheumatology [address] [facility] Psoriasis; [address] [facility] BL Right elbow pain; [place], [place] [phone] [place] [address] Chronic pain of both knees [phone] [address] Social History Tobacco Use Types Packs/Day Years Used Date Smoking Tobacco: Former Cigarettes 1 Quit : 1990 Alcohol Use Standard Drinks/Week Comments Yes 3 (1 standard drink = 0.6 oz pure alcoho l) Sex Assigned at Date Recorded Not on file documented as of this encounter Last Filed Vital Signs Vital Sign Reading Time Taken Comments Blood Pressure 150/94 09/01/2016 11:49 AM HAND COREMAKER Pulse 57 09/01/2016 11:49 AM HAND COREMAKER Temperature - - Respiratory Rate - - [...] amount of fluid likely from mensicus tear. COREMAKER documented in this encounter Progress Notes Finn Laughlin MD - 09/01/2016 11:27 AM CST RHEUMATOLOGY NEW PATIENT NOTE This note was generated using voice activated engine manager software and may contain typographical errors. CC: [...] care provider is Dr. Jossue Chapin had [facility], [facility]. TSH was normal in [...] this has not been formally diagnosed by operating engineer. 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 copy to Jossue Chapin M.D. [facility], [facility]. Total time: 45 minutes, greater than 25 minutes counselling and educating on the above COREMAKER documented in this encounter Plan of Treatment Not on filedocumented as of this encounter Results DNA - Anti-dsDNA Antibody (09/01/2016 11:42 AM HAND COREMAKER) athologist Signature Anti-DNA Ab see below Negative PN SOFT Comment: <1:10 Negative Specimen Anatomical Collection Method Collection Time Receive d Time (Source) Location / / Volume Laterality 09/01/2016 11:42 09/01/2016 3:45 AM HAND COREMAKER PM HAND COREMAKER Narrative PN SOFT - 09/02/2016 1:07 PM HAND COREMAKER Performed at [facility], [facility] [place] [address] CLIA number [id number] Finn Laughlin MD LAB_1 Performing Organization Address City/State/ZIP Code Phon e Number PN SOFT [address] [place] [address] [phone] Extractable Nuclear Antigen Antibodies (09/01/2016 11:42 AM HAND COREMAKER) P athologist Signature SUSHANT To SENIOR ELECTRICAL PROJECT MANAGER 1 0 - 40 PN SOFT Antibody AU/mL Comment: INTERPRETIVE INFORMATION: Ribonucleic Pr otein (SUSHANT)Antibody, IgG ??29 AU/mL or Less ............. Negati ve ??30 - 40 AU/mL ................ Equivo nicholas ??41 AU/mL or Greater .......... Positi ve SENIOR ELECTRICAL PROJECT MANAGER antibody is seen in 95-100 percent o f mixed connective tissue disease and is considered specifi c for this syndrome if other antibodies are negative; SENIOR ELECTRICAL PROJECT MANAGER is also present in 20-30 percent of systemic lupus erythema tosus and 15-25 percent of progressive systemic sclerosi s. SENIOR ELECTRICAL PROJECT MANAGER antigens also contain epitopes that are immunolog ically identical to free Jamison antigens, therefore, the Len h antibody response must be considered when interpreting SENIOR ELECTRICAL PROJECT MANAGER results. Performed by [facility], [address] [place] [id number] [email or web address], Toni Chaney MD - Lab. Director SUSHANT [...] Volume Laterality 09/01/2016 11:42 09/01/2016 3:45 AM HAND COREMAKER PM HAND COREMAKER Narrative PN SOFT - 09/02/2016 11:23 PM HAND COREMAKER Performed at [facility] [address] [place] [address] CLIA number [id number] Finn Laughlin MD LAB_1 Performing Organization Address City/State/ZIP Code Phon e Number PN SOFT [address] [place] [address] DAMION - Antinuclear Antibody (09/01/2016 11:42 AM HAND COREMAKER) P athologist Signature Anti-Nuclear Negative Negative PN SOFT Ab Specimen Anatomical Collection Method Collection Time Receive d Time (Source) Location / / Volume Laterality 09/01/2016 11:42 09/01/2016 3:45 AM HAND COREMAKER PM HAND COREMAKER Narrative PN SOFT - 09/02/2016 1:10 PM HAND COREMAKER Performed at [address] [address] CLIA number [id number] Finn Laughlin MD LAB_1 Performing Organization Address City/[facility]/ZIP Code Phon e Number PN SOFT [address] [place] [address] ESR - Sedimentation Rate (09/01/2016 11:42 AM HAND COREMAKER) Analysis Performed At Patho logist Time Signature Sedimentation Rate 5 0 - 15 PN SOFT mm/hr Specimen Anatomical Collection Method Collection Time Receive d Time (Source) Location / / Volume Laterality 09/01/2016 11:42 09/01/2016 AM HAND COREMAKER 11:41 AM HAND COREMAKER Narrative PN SOFT - 09/01/2016 12:18 PM HAND COREMAKER Performed at [address] [address] CLIA number [id number] Finn Laughlin MD LAB_1 Performing Organization Address City/[facility]/ZIP Code Phon e Number PN SOFT [address] [place] [address] (ABNORMAL) CRP - C Reactive Protein (09/01/2016 11:42 AM HAND COREMAKER) P athologist Signature CRP 0.6 (H) 0.0 - 0.5 PN SOFT mg/dL Specimen Anatomical Collection Method Collection Time Receive d Time (Source) Location / / Volume Laterality 09/01/2016 11:42 09/01/2016 AM HAND COREMAKER 11:42 AM HAND COREMAKER Narrative PN SOFT - 09/01/2016 2:37 PM HAND COREMAKER Performed at [facility], [address] [place], [place] [address] CLIA number [id number] Finn Laughlin MD LAB_1 Performing Organization Address City/[facility]/ZIP Code Phon e Number PN SOFT [address] [place] [address] [phone] CBC - Complete Blood Count W/Diff (09/01/2016 11:42 AM HAND COREMAKER) P athologist Signature White Blood Cell 5.0 [...] / Volume Laterality 09/01/2016 11:42 09/01/2016 AM HAND COREMAKER 11:41 AM HAND COREMAKER Narrative PN SOFT - 09/01/2016 11:47 AM HAND COREMAKER Performed at [facility], [facility] [address] [place] [address] CLIA number [id number] Finn Laughlin MD LAB_1 Performing Organization Address [facility] Code Phon e Number PN SOFT [address] [place] [address] AST - Aspartate Aminotransferase (09/01/2016 11:42 AM HAND COREMAKER) Patholo gist Method Time Signature Aspartate 22 10 - 40 PN SOFT Aminotransferase U/L Specimen Anatomical Collection Method Collection Time Receive d Time (Source) Location / / Volume Laterality 09/01/2016 11:42 09/01/2016 AM HAND COREMAKER 11:42 AM HAND COREMAKER Narrative PN SOFT - 09/01/2016 2:37 PM HAND COREMAKER Performed at [facility], [address] [place] [address] CLIA number [id number] Finn Laughlin MD LAB_1 Performing Organization Address City/[facility]/ZIP Code Phon e Number PN SOFT [address] [place] [address] CREAT - Creatinine (09/01/2016 11:42 AM HAND COREMAKER) P athologist Signature Creatinine Serum 1.00 0.73 [...] / Volume Laterality 09/01/2016 11:42 09/01/2016 AM HAND COREMAKER 11:42 AM HAND COREMAKER Narrative PN SOFT - 09/01/2016 2:37 PM HAND COREMAKER Performed at [facility], [address] [place] [address] CLIA number [id number] Finn Laughlin MD LAB_1 Performing Organization Address City/State/ZIP Code Phon e Number PN SOFT [address] [place] [address] documented in this encounter Visit Diagnoses Diagnosis Alopecia areata - Primary Psoriasis Other psoriasis Right elbow pain Pain in joint, upper arm Chronic pain of both knees Alopecia areata documented in this encounter Care Teams Online Marketer Relationship Specialty Start Date End Date Raulito Saez, WAIT STAFF, REAL ESTATE LISTING CONSULTANT PCP - General 12/24/10 09/25/18 documented as of this encounter
--- OUTSIDE RECORDS SUMMARY | 2022-06-21 11:34 | XMS_ITS | Encounter Summary ---
:1970 Author Organization [facility] Address [address], [place] [address] Care Team Providers Name Role Phone Raulito Saez Yemi LUNDBERG CNP Primary Care Provider [phone] Reason for Visit Reason Comments Follow-up Encounter Details Date Type Department Care Team Description 04/20/2016 Office Visit [facility] Brenda Copeland, Uncomplicated asthma, unspec ified asthma severity (HRC) (Primary Dx); [address] Otf Berkowitz MD Allergic rhinitis, unspecified allergic rhinitis type; [place] [address] [facility] Chronic pansinusitis [phone] [place] [address] Social History Tobacco Use Types [...] Filed: 04/28/161728 Note Time: 04/20/161726 Status: Signed Application Architect: Brenda Copeland MD (Physician) NAME: HAYDEN AMARO MR#: [id number] CSN: [id number] AUTHENTICATING CLINICIAN: Brenda Copeland MD CONFIRM #: [id number] LOC: 514 CLINIC PROGRESS NOTE DATE OF [...] asthma. He did see an ENT in [place] with repeat sinus imaging studies. He was scheduled for surgery that was ultimately postponed. He had a marked exacerbation of symptoms while on vacation in [place]. He felt his sinuses were completely compacted with copious chronic clear drainage. He was seen at [facility] for questionable CSF leak, which turned outnot [...] year or p.r.n. [facility]:NOHEMY C: CONFIRM #: [id number] documented in this encounter Plan of Treatment Not on filedocumented as of this encounter Visit Diagnoses Diagnosis Uncomplicated asthma, unspecified asthma severity (HRC) - Primary Allergic rhinitis, unspecified allergic rhinitis type Chronic pansinusitis Other chronic sinusitis documented in this encounter Care Teams Real Estate Broker Associate Relationship Specialty Start Date End Date Raulito Saez, QUALITY SUPERVISOR, HEALTH PROMOTION MANAGER PCP - General 12/24/10 09/25/18 documented as of this encounter
--- OUTSIDE RECORDS SUMMARY | 2022-06-21 11:34 | XMS_ITS | Encounter Summary ---
:1970 Author Organization [facility] Address [address], [place] [address] Care Team Providers Name Role Phone Raulito Saez APRN, CNP Primary Care Provider [phone] Reason for Visit Reason Comments Refill Encounter Details Date Type Department Care Team Description 01/23/2016 Refill [facility] Brenda Copeland MD Refill [address] [facility] [address] [place] [id number] [place] [address] [phone] (Wo rk) Social History Tobacco Use Types [...] filedocumented in this encounter Care Teams Administrative Assistant Receptionist Relationship Specialty Start Date End Date Raulito Saez APRN, CNP PCP - General 12/24/10 09/25/18 documented as of this encounter
--- OUTSIDE RECORDS SUMMARY | 2022-06-21 11:34 | XMS_ITS | Encounter Summary ---
:1970 Author Organization [employer] Address [address] [address] Care Team Providers Name Role Phone Jossue Chapin MD Primary Care Provider Encounter Details Date Type Department Care Team Description 11/26/2020 Orders Only Initial Department Provider, Oc, [facility] DEBBIE REEDER MD [place], [place] [address] Interface provider [phone] [place] [address] Social History Tobacco Use Types Packs/Day Years [...] on filedocumented in this encounter Care Teams Recycling Director Relationship Specialty Start Date End Date Jossue Chapin MD PCP - General 09/26/181999 [place] [address] documented as of this encounter
--- OUTSIDE RECORDS SUMMARY | 2022-06-21 11:34 | XMS_ITS | Encounter Summary ---
:1970 Author Organization [employer] Address [address], [place] [address] Care Team Providers Name Role Phone Jossue Chapin MD Primary Care Provider Encounter Details Date Type Department Care Team Description 11/26/2020 Orders Only Initial Department Provider, Oc, [facility] DEBBIE REEDER MD [place], [place] [address] Interface provider [phone] [place] [address] Social History Tobacco Use Types Packs/Day Years [...] on filedocumented in this encounter Care Teams Outcomes Analyst Relationship Specialty Start Date End Date Jossue Chapin MD PCP - General 09/26/181999 [place] [address] documented as of this encounter
--- OUTSIDE RECORDS SUMMARY | 2022-06-21 11:34 | XMS_ITS | Encounter Summary ---
:1970 Author Organization [employer] Address [address], [place] [address] Care Team Providers Name Role Phone Jossue Chapin MD Primary Care Provider Encounter Details Date Type Department Care Team Description 11/26/2020 Lab Visit [facility] [address] Nasal ney yp; Laboratory Alopecia areata; [address] Moderate persistent asthma, unspecified whether complicated [place], [place] [address] Social History Tobacco Use Types Packs/Day Years [...] Moderate persi stent Results for this PANEL CR[facility]ING [facility]MAN asthma, unspecified procedur e are in whether complica dennys the results Nasal polyp section. COMPLETE BLOOD Routine 11/26/2020 4:21 PM Moderate persistent Results for this COUNT-W/DIFF CROSSING FLAGMAN asthma, unspecified procedur e are in whether complica dennys the results Nasal polyp section. TSH, SENSITIVE (WITH Routine 11/26/2020 4:21 PM Nasal po lyp Results for this REFLEX) CROSSING FLAGMAN Alopecia areata procedure ar e in the results section. documented in this encounter Results Complete Blood Count-W/Diff (11/26/2020 4:21 PM CROSSING FLAGMAN) P athologist Signature WBC 7.3 3.5 - 10.5 11/26/2020 [facility] x10(9)/L 4:32 PM [facility] [address] LABORATORY RBC 5.26 4.32 - 11/26/2020 [facility] 5.72 4:32 PM [facility] 38[address] LABORATORY x10(12)/L Hemoglobin 16.1 13.5 - 11/26/2020 [facility] 17.5 g/dL 4:32 PM [facility] [address] LABORATORY HCT 47.9 38.8 - 11/26/2020 [facility] 50.0 % 4:32 PM [facility] [address] LABORATORY MCV 91.1 80.0 - 11/26/2020 [facility] 100.0 fL 4:32 PM [facility] [address] LABORATORY MCH 30.6 27.6 - 11/26/2020 [facility] 33.3 pg 4:32 PM [facility] [address] LABORATORY MCHC 33.6 31.5 - 11/26/2020 [facility] 35.2 g/dL 4:32 PM [facility] [address] LABORATORY RDW 12.9 11.9 - 11/26/2020 [facility] 15.5 % 4:32 PM [facility] [address] LABORATORY Platelets 295 150 - 450 11/26/2020 [facility] x10(9)/L 4:32 PM [facility] [address] LABORATORY Automated NRBC 0 <=0 /100 11/26/2020 [facility] WBC 4:32 PM [facility] [address] LABORATORY Neutrophil 4.5 1.7 - 7.0 11/26/2020 [facility] Absolute 10(9)/L 4:32 PM [facility] [address] LABORATORY Lymphocyte 2.0 1.0 - 4.8 11/26/2020 [facility] Absolute 10(9)/L 4:32 PM [facility] [address] LABORATORY Monocytes 0.6 0.2 - 0.9 11/26/2020 [facility] Absolute 10(9)/L 4:32 PM [facility] [address] LABORATORY Eosinophil 0.2 0.0 - 0.5 11/26/2020 [facility] Absolute 10(9)/L 4:32 PM [facility] [address] LABORATORY Basophil 0.1 0.0 - 0.3 11/26/2020 [facility] Absolute 10(9)/L 4:32 PM [facility] [address] LABORATORY Immature Gran % 0.1 0.0 - 0.5 11/26/2020 [facility] % 4:32 PM CR[facility] 3850 LABORATORY Specimen Anatomical Collection Method / Collection Time Recei randy Time (Source) Location / Volume Laterality Blood Venipuncture / 11/26/2020 4:21 11/26/2020 4:22 Unknown PM CR[facility] PM [facility] Brenda Copeland MD LAB_1 Performing Organization Address City/[facility]/ZIP [facility] Phon e Number [facility] [address] [place], [place] LABORATORY [facility] [phone] TSH with Free T4 (if TSH Abnormal) (11/26/2020 4:21 PM CR[facility]) P athologist Signature TSH, Reflex 1.34 0.30 - 4.50 11/26/2020 [facility] uIU/mL 8:18 PM [facility] LABORATORY Specimen Anatomical Collection Method / Collection Time Recei randy Time (Source) Location / Volume Laterality Blood Venipuncture / 11/26/2020 4:21 11/26/2020 4:22 Unknown PM [facility] PM [facility] Narrative [facility] - 11/26/2020 8:18 P M CR[facility] Lab will automatically reflex to Free T4 when TSH results are outside of reference range for patient's age group. Brenda Copeland MD LAB_1 Performing Organization Address City/[facility] Phon e Number [facility] [address] [place] [address] documented in this encounter Visit Diagnoses Diagnosis Nasal polyp Unspecified nasal polyp Alopecia areata Moderate persistent asthma, unspecified whether complicated (HRC) documented in this encounter Care Teams Mat Sewer Relationship Specialty Start Date End Date Jossue Chapin MD PCP - General 09/26/181999 [place] [address] documented as of this encounter
--- OUTSIDE RECORDS SUMMARY | 2022-06-21 11:35 | XMS_ITS | Encounter Summary ---
:1970 Author Organization [employer] ([email or web address])[facility] Address [address] [place] [address] Care Team Providers Name Role Phone Raulito Saez APRN, HEALTH SCIENCE SPECIALIST Primary Care Provider [phone] Encounter Details Date Type Department Care Team Description 12/28/2010 PN Conversion Only Raymon [address] Griffin Billingsley, Orthopedics [address] [place] [address] [place], [place] [address] (Wo rk) Social History Tobacco Use Types Packs/Day Years Used Date Smoking Tobacco: Never Assessed Sex Assigned at Date Recorded Not on file documented as of this encounter Progress Notes Griffin Billingsley MD - 12/28/2010 12:01 AM CDT Progress Notes signed by Griffin Billingsley MD at 01/06/11 1446 Author: Griffin Billingsley MD Service: (none) Author Type: Physician Filed: 01/19/11 1559 Note Time: 12/28/10 0001 Status: Signed Electric Motor Tester Assembler: Griffin Billingsley MD (Physician) NAME: HAYDEN AMARO MR#: [id number] ACCT: [id number] VISIT: [id number] DICTATING CLINICIAN: Griffin Billingsley MD CONFIRM #: [id number] LOC: 3211 CLINIC PROGRESS NOTE DATE OF VISIT: 12/28/2010 : 1970 CHIEF COMPLAINT: Right leg and hip pain. HISTORY: Hayden is a very pleasant 40-year-old gentleman who was lifting weights last fall and began having some right leg pain that is now intermittent numbness over the lateral calf and lateral 2 toes of his right leg. When he drives, it makes it worse. It is getting better than it was in the past, but he has laid off his heavy weight lifting. He denies any bowel or bladder incontinence. He has no prior history of radiating pains, numbness or weakness, nor of back pain. Physical exam reveals Hayden to be alert and oriented, in no acute distress. He ambulates without an antalgic gait. He is able to get on and off the exam table without difficulty. Examination of his low back reveals a normal lordosis without scoliosis. He has no paraspinal muscle spasm present. He has 0/5 Ben signs. He has a normal fluid motion to the lumbar spine. Distally, he has 5/5 manual muscle testing and reflexes are symmetric. An MRI was available for review which reveals L4-5 and L5-S1 degenerative disk disease with an annular tear. IMPRESSION: Degenerative disk disease, L4-5 and L5-S1, without objective radicular phenomenon weakness or diminished reflexes, that is symptomatically getting better on its own. PLAN: I had a long discussion with Hayden today and discussed the annular tear and the edema that may be associated with it. I told him that this tear should resolve itself. We talked about the use of corticosteroids and at this point, we are going to continue to watch him for improvement, taking intermittent nonsteroidal anti- inflammatories. He will return to see me if he has any changes in his symptoms. DANY:NOHEMY C: CONFIRM #: [id number] documented in this encounter Plan of Treatment Not on filedocumented as of this encounter Visit Diagnoses Not on filedocumented in this encounter Care Teams Warehouse Pricing And Inventory Clerk Relationship Specialty Start Date End Date Raulito Saez, AIRCRAFT STRUCTURE MECHANIC, HEALTH SCIENCE SPECIALIST PCP - General 12/24/10 09/25/18 documented as of this encounter
--- OUTSIDE RECORDS SUMMARY | 2022-06-21 11:35 | XMS_ITS | Encounter Summary ---
:1970 Author Organization [employer] Address [address], [place] [address] Care Team Providers Name Role Phone Raulito Saez APRN, CNP Primary Care Provider [phone] Encounter Details Date Type Department Care Team Description 12/18/2010 Office Visit [facility] Raulito Saez, Medicine TOÑO, CHITO [address] [address] [place] [address] [place], [place] [address] (Wo rk) Social History Tobacco Use Types [...] Body Mass Index 28.62 09/22/2010 8:54 AM FARMWORKERS documented in this encounter Progress Notes Raulito [...] on filedocumented in this encounter Care Teams Meat Supervisor Relationship Specialty Start Date End Date Raulito Saez APRN, CNP PCP - General 12/24/10 09/25/18 documented as of this encounter
--- OUTSIDE RECORDS SUMMARY | 2022-06-21 11:35 | XMS_ITS | Encounter Summary ---
:1970 Author Organization [employer] Address [address] [address] Care Team Providers Name Role Phone Nasrin Elliott APRN, CHITO Primary Care Provider [phone] Reason for Visit Reason Comments Other Encounter Details Date Type Department Care Team Description 12/25/2010 Telephone [facility] Kyra Badillo LPN Other [address] [place] [address] Social History Tobacco Use Types [...] filedocumented in this encounter Care Teams Director Oncology Relationship Specialty Start Date End Date Nasrin Elliott, HANDTOOLS REPAIRER, LABORER POWERHOUSE PCP - General 12/24/10 09/25/18 documented as of this encounter
--- OUTSIDE RECORDS SUMMARY | 2022-06-21 11:35 | XMS_ITS | Encounter Summary ---
:1970 Author Organization [facility] Address [address] [place] [address] Care Team Providers Name Role Phone Raulito Saez APRN, CNP Primary Care Provider [phone] Encounter Details Date Type Department Care Team Description 01/16/2011 PN Conversion Only CONVERSION CONVERSION Eliecer Byrd, DO [address] [place] [address] (Wo rk) Social History Tobacco Use Types Packs/Day Years Used Date Smoking Tobacco: Never Assessed Sex Assigned at Date Recorded Not on file documented as of this encounter Plan of Treatment Not on filedocumented as of this encounter Visit Diagnoses Not on filedocumented in this encounter Care Teams Assurance Senior Manager Insurance Relationship Specialty Start Date End Date Raulito Saez APRN, CNP PCP - General 12/24/10 09/25/18 documented as of this encounter
--- OUTSIDE RECORDS SUMMARY | 2022-06-21 11:35 | XMS_ITS | Encounter Summary ---
:1970 Author Organization [employer] Address [address] [address] Care Team Providers Name Role Phone Raulito Saez CHITO LUNDBERG Primary Care Provider [phone] Encounter Details Date Type Department Care Team Description 04/05/2012 - Hospital Encounter [facility] Luis Eduardo Moody, [address] [place], [place] [id number] Unspecified asthma 04/08/2012 [id number]-Tacos Milian MD [address] [place] [address] [address] [place], [place] [id number] Social History Tobacco Use Types Packs/Day Years [...] CDT DISCHARGE SUMMARY Patient ID: Hayden Mckay [id number] 41 y.o. 1970 Admit date: 04/05/2012 Discharge [...] in the Urgent Care and sent to [facility] once the CT results were noted. He [...] of study. Disposition: home Patient Instructions: Unchanged HYDRAULIC PLUMBER meds that are or will be resumed [...] (For hospital follow up) Contact information: [address] [facility] [address] [phone] Total time for discharge: 34 minutes Danisha Moody D.O. Internal Medicine Hospitalist Service documented in this encounter Medications at Time of Discharge Medication Sig Dispensed Refills Start Date End Date ALBUterol sulfate HFA Inhale 2 puffs every 1 Inhaler 4 08/1910/17/2012 108 (90 BASE) MCG/ACT 4 hours as needed. inhalerIndications: HOLD rx on file until Unspecified pt. requests refill. asthma(493.90) ([facility]) amoxicillin-clavulanate Take 1 tablet by 10 tablet [...] diskus before further inhalerIndications: refills. Unspecified asthma(493.90) ([facility]) Naproxen (aka EC Take 1 tablet by [...] content foods Provide packet of printed information. Cnc Wood Lathe Operator contact information provided Comprehension: Pt verbalized understanding of diet Yeimi Chasity MS, LD, RD Rebekah Streeter HUC - 04/08/2012 2:14 PM CDT Unable to make discharge follow up appt. Patient's MD is non-PN and unavailable on the weekend. Pt. will make appointment. Assisted patient in filling out AB for records to be sent to [facility]. Danisha Moody DO - 04/08/2012 2:05 [...] Am >60 04/06/2012 07:09 IMAGING: Reviewed in [facility] ASSESSMENT/PLAN: Hayden Mckay is a 41 y.o. [...] test results and plan. Radha Frank MD [facility] David Nolan MD - 04/06/2012 8:03 AM [...] - 04/06/12 2135 100 mL/hr Started Frankie Resedniz RN Intravenous - 04/06/12 2135 - - [...] C.Difficile Toxin,Molecular Detection (04/07/2012 5:52 PM CDT) [facility] Method Time Signature Clostridium Negative HP CONVERSION [...] Danisha Moody DO LAB_1 Performing Organization Address City/[facility] Code Phon e Number HP CONVERSION (ABNORMAL) Hemogram/Plts (04/07/2012 7:08 AM CDT) [facility] Method Time Signature White Blood Cell 7.7 [...] Radha Frank MD LAB_1 Performing Organization Address City/[facility]/ZIP Code Phon e Number HP CONVERSION BEDSIDE GLUCOSE MONITOR (04/06/2012 4:56 PM CDT) athologist Signature Bedside Blood 114 mg/dL HP CONVERSION Glucose Test Specimen Anatomical Collection Method Collection Time Receive d Time (Source) Location / / Volume Laterality 04/06/2012 4:56 PM 2 8:51 CDT AM CDT Danisha Jinmeet RUVALCABA LAB_1 Performing Organization Address [facility] Phon e Number HP CONVERSION BEDSIDE GLUCOSE MONITOR (04/06/2012 8:26 AM CDT) athologist Signature Bedside Blood 134 mg/dL HP CONVERSION Glucose Test Specimen Anatomical Collection Method Collection Time Receive d Time (Source) Location / / Volume Laterality 04/06/2012 8:26 AM 2 CDT 11:45 AM CDT Radha Frank MD LAB_1 Performing Organization Address [facility] Phon e Number HP CONVERSION Creatinine / [...] Tacos Manzo MD LAB_1 Performing Organization Address City/[facility] Code Phon e Number HP CONVERSION Potassium (04/06/2012 7:09 AM CDT) athologist Signature Potassium 3.8 3.5 - 5.2 HP CONVERSION mEq/L Specimen Anatomical Collection Method Collection Time Receive d Time (Source) Location / / Volume Laterality BLOOD: 04/06/2012 7:09 AM 2 7:46 CDT AM CDT Tacos Manzo MD LAB_1 Performing Organization Address City/[facility] Phon e Number HP CONVERSION Sodium (04/06/2012 7:09 AM CDT) athologist Signature Sodium 139 137 - 147 HP CONVERSION mEq/L Specimen Anatomical Collection Method Collection Time Receive d Time (Source) Location / / Volume Laterality BLOOD: 04/06/2012 7:09 AM 2 7:46 CDT AM CDT Tacos Manzo MD LAB_1 Performing Organization Address [facility] Phon e Number HP CONVERSION Hemoglobin, Blood (04/06/2012 7:09 AM CDT) athologist Signature Hemoglobin 14.1 13.4 - 17.5 HP CONVERSION g/dL Specimen Anatomical Collection Method Collection Time Receive d Time (Source) Location / / Volume Laterality BLOOD: 04/06/2012 7:09 AM 2 7:46 CDT AM CDT Tacos aMnzo MD LAB_1 Performing Organization Address [facility] Phon e Number HP CONVERSION (ABNORMAL) WBC, Blood (04/06/2012 7:09 AM CDT) [facility] Time Signature White Blood 11.8 (H) 3.8 - 11.0 HP CONVERSION Cell Count k/cmm Specimen Anatomical Collection Method Collection Time Receive d Time (Source) Location / / Volume Laterality BLOOD: 04/06/2012 7:09 AM 2 7:46 CDT AM CDT Tacos Manzo MD LAB_1 Performing Organization Address [facility] Phon e Number HP CONVERSION (ABNORMAL) Differential [...] Tacos Manzo MD LAB_1 Performing Organization Address [facility] Phon e Number HP CONVERSION ANION GAP (04/05/2012 11:09 PM CDT) athologist Signature ANION GAP 8 8 - 16 mEq/L HP CONVERSION Specimen Anatomical Collection Method Collection Time Receive d Time (Source) Location / / Volume Laterality 04/05/2012 11:09 04/05/2012 PM CDT 11:19 PM CDT Tacos Manzo MD LAB_1 Performing Organization Address [facility] Phon e Number HP CONVERSION (ABNORMAL) Liver Panel(Hepatic Function Panel) (04/05/2012 11:09 PM CDT) [facility] Method Time Signature Alk Phos 62 25 [...] Tacos Manzo MD LAB_1 Performing Organization Address [facility] Phon e Number HP CONVERSION (ABNORMAL) Basic Metabolic Panel (04/05/2012 11:09 PM CDT) [facility] Method Time Signature Creatinine Serum 1.0 0.4 [...] Tacos Manzo MD LAB_1 Performing Organization Address [facility] Phon e Number HP CONVERSION (ABNORMAL) Hemogram/Plts/Diff (04/05/2012 11:09 PM CDT) [facility] Method Time Signature White Blood Cell 13.2 [...] Tacos Manzo MD LAB_1 Performing Organization Address [facility] Phon e Number HP CONVERSION Blood Culture includes Aerobic and Anaerobic (04/05/2012 11:08 PM CDT) [facility] Method Time Signature Blood Culture No growth [...] asthma documented in this encounter Care Teams Glazing Department Supervisor Relationship Specialty Start Date End Date Raulito Saez, ON CAR SUPERVISOR, RADIO COMMUNICATION COORDINATOR PCP - General 12/24/10 09/25/18 documented as of this encounter
--- OUTSIDE RECORDS SUMMARY | 2022-06-21 11:35 | XMS_ITS | Encounter Summary ---
:1970 Author Organization [employer] Address [address], [place] [address] Care Team Providers Name Role Phone Raulito Saez Yemi LUNDBERG, INSOLE COVERER Primary Care Provider [phone] Reason for Visit Reason Comments URI SOB (SHORTNESS OF BREATH) Encounter Details Date Type Department Care Team Description 02/22/2013 Office Visit [facility] Ema Moore Asthma with acute exacerbation (Primary Dx); Guzman Granados MD URI (upper respiratory infection); [address] [address] [address] Allergic rhinitis, cause uns pecified; [place], [place] [address] Nasal polyp [phone] [place] [address] Social History Tobacco Use Types [...] has a prescription at home from his typewriter repairer). ACT score 21 today. ER and urgent care precautions reviewed with patient today. 2. URI-discussed likely viral etiology and no antibiotics are warranted at this time. Recommend Zyrtec-D available [id number] for symptomatic relief of nasal congestion and postnasal drip. 3. Allergic rhinitis-per typewriter repairer. Continue Flonase but recommend increasing to twice [...] polyp documented in this encounter Care Teams Manager [employer] Fund Relationship Specialty Start Date End Date Raulito Saez, MUSIC CRITIC, INSOLE COVERER PCP - General 12/24/10 09/25/18 documented as of this encounter
--- OUTSIDE RECORDS SUMMARY | 2022-06-21 11:35 | XMS_ITS | Encounter Summary ---
:1970 Author Organization [facility] Address [address], [place] [address] Care Team Providers Name Role Phone Raulito Saez TOÑO, REFORMATORY ATTENDANT Primary Care Provider [phone] Reason for Visit Reason Comments Follow-up Encounter Details Date Type Department Care Team Description 10/17/[address] [facility] [address] Unsp ecified asthma (Primary Dx); Allergy Allergic rhinitis, cause unspecified; [address] Lv yp of nasal cavity; [address] [place] [phone] (Wo rk) Social History Tobacco Use Types Packs/Day Years Used Date Smoking Tobacco: Never Assessed Sex Assigned at Date Recorded Not on file documented as of this encounter Last Filed Vital Signs Vital Sign Reading Time Taken Comments Blood Pressure 132/84 10/17/2012 3:03 PM COPYWRITER Pulse - - Temperature - - Respiratory Rate - - Oxygen Saturation - - Inhaled Oxygen Concentration - - Weight 95.3 kg (210 lb) 10/17/2012 3:03 PM COPYWRITER Height 182.9 cm (6') 10/17/2012 3:03 PM COPYWRITER Body Mass Index 28.48 10/17/2012 3:03 PM COPYWRITER documented in this encounter Progress Notes Brenda [...] Robert fundoplication.Hayden has 2 children in the [employer] school [place]. 1 labradoodle. Nonsmoker. He works from [employer] of the time but commutes between [place] and [place]. OBJECTIVE: Vital Signs: BP: 134/84 HT: 72 [...] Asthma Specialist: Brenda Copeland MD My Clinic: [place] [address] [facility] Phone #: [phone] Know your asthma triggers: Colds and Viruses [...] by: Brenda Copeland MD, 10/17/2012 Created by: Brenda Copeland Asthma Management Plan [...] to help you quit smoking, or call [phone]. Colds, Flu, Bronchitis These are common triggers [...] Some medicines and food can trigger asthma. WRITER documented in this encounter Plan of Treatment Not on filedocumented as of this encounter Visit Diagnoses Diagnosis Unspecified asthma(493.90) ([facility]) - Prima ry Unspecified asthma Allergic rhinitis, cause unspecified Polyp of nasal cavity Oral candidiasis Candidiasis of mouth documented in this encounter Care Teams Student Counselor Relationship Specialty Start Date End Date Raulito Saez, AUGER MILL OPERATOR, REFORMATORY ATTENDANT PCP - General 12/24/10 09/25/18 documented as of this encounter
--- OUTSIDE RECORDS SUMMARY | 2022-06-21 11:35 | XMS_ITS | Encounter Summary ---
:1970 Author Organization [facility] Address [address] [place] [address] Care Team Providers Name Role Phone Raulito Saez Yemi LUNDBERG, CHITO Primary Care Provider [phone] Reason for Visit Reason Comments Other Encounter Details Date Type Department Care Team Description 12/28/2010 Telephone [facility] [address] Cielo Delacruz i, OA Other Orthopedics [address] [place], [place] [phone] Social History Tobacco Use Types Packs/Day Years [...] on filedocumented in this encounter Care Teams Enterprise Account Manager Relationship Specialty Start Date End Date Raulito Saez, SPORTS DOCTOR, COURT ABSTRACTOR PCP - General 12/24/10 09/25/18 documented as of this encounter
--- OUTSIDE RECORDS SUMMARY | 2022-06-21 11:35 | XMS_ITS | Encounter Summary ---
:1970 Author Organization [facility] Address [address], [place] [address] Care Team Providers Name Role Phone NadjaGalen barraganedith Bragg APRN, CNP Primary Care Provider [phone] Reason for Visit Reason Comments Abdominal Pain Fever Encounter Details Date Type Department Care Team Description 04/05/2012 Hospital Encounter [facility] Ledy Deion Abdominal pain, unspecified site; Andrei Haro MD Diverticulitis [address] [phone] Social History Tobacco Use Types Packs/Day Years [...] file until Unspecified pt. requests refill. asthma(493.90) ([facility]) amoxicillin-clavulanate Take 1 tablet by 10 [...] diskus before further inhalerIndications: refills. Unspecified asthma(493.90) ([facility]) Naproxen (aka EC Take 1 tablet by 14 tablet 0 04/08/2012 NAPROSYN) TBEC mouth daily (with breakfast) for 14 days. Indications: GOUT documented as of this encounter Progress Notes Franchesca Jacobs RN - 04/05/2012 8:23 PM CDTEncounter addended by: Franchesca Jcaobs RN on: 04/07/2012 4:58 PM
Documentation filed: [...] components within normal limits Narrative: Performed at [facility], [address] [place] [address] LAB COMPLETE BLOOD COUNT W/DIFF - Abnormal; Notable for the following: ??? White Blood Cell Count 14.3 (*) All other components within normal limits Narrative: Performed at [facility], [address] [place] [address] N/O LAB DIFFERENTIAL - Abnormal; Notable for the following: ??? Absolute Neutrophils 12.4 (*) ??? Absolute Lymphocytes 0.7 (*) ??? Absolute Monocytes 1.0 (*) All other components within normal limits Narrative: Performed at [facility], [address] [place] [address] N/O LAB ANION GAP Narrative: Performed at [facility], [address] [place] [address] CT: Diverticulitis with contained perforation. Urgent Care treatments: IV fluids 1 liter and Morphine 2 mg, Unasyn 3 Gm Response to treatment: Mild releif ASSESSMENT: Diverticulitis with contained perforation. PLAN: Admit to [facility] under the hospitalist service. documented in this [...] ?? 5. Findings were discussed with the [facility] clinician at 1910 hours on date [...] obstruction. ?? No other abnormalities. Procedure Note Wlaly Meade MD - 03/06/2016Formatti ng of this [...] - 04/05/2012 6:11 PM CDT Performed at [facility], [address] [place] [address] Deion Villafana MD LAB_1 Performing Organization Address [...] - 04/05/2012 6:11 PM CDT Performed at [facility], [address] [place] [address] Deion Villafana MD LAB_1 Performing Organization Address City/[facility]/ZIP Code Phon e Number HP CONVERSION (ABNORMAL) Differential (04/05/2012 5:35 PM CDT) [facility] Method Time Signature Absolute 12.4 (H) 1.8 [...] - 04/05/2012 5:46 PM CDT Performed at [facility], [address] [place], [place] [address] Deion Villafana MD LAB_1 Performing Organization Address [facility] Phon e Number HP CONVERSION (ABNORMAL) Hemogram/Plts/Diff (04/05/2012 5:35 PM CDT) [facility] Method Time Signature White Blood Cell 14.3 [...] - 04/05/2012 5:46 PM CDT Performed at [facility], [address] [place] [address] Deion Villafana MD LAB_1 Performing Organization Address City/State/ZIP Code Phon e Number HP CONVERSION documented in this encounter Visit Diagnoses Diagnosis Abdominal pain, unspecified site Diverticulitis Diverticulitis of colon (without mention of hemorrhage) documented in this encounter Care Teams Weather Forecaster Relationship Specialty Start Date End Date Raulito Saez, DRAPERY OPERATOR, FLAKE DRIER PCP - General 12/24/10 09/25/18 documented as of this encounter
--- OUTSIDE RECORDS SUMMARY | 2022-06-21 11:35 | XMS_ITS | Encounter Summary ---
:1970 Author Organization [facility] Address [address], [place] [address] Care Team Providers Name Role Phone Raulito Saez APRN, CNP Primary Care Provider [phone] Reason for Visit Reason Comments ALLERGY TESTING Encounter Details Date Type Department Care Team Description 07/30/2011 Nursing Visit [facility] [place] [facility] [address] Nurse, P3800 Allergic rhinitis, cause unspecified; Allergy All Unspecified asthma; [address] Need for desensitization [place] [address] Social History Tobacco Use Types Packs/Day Years Used Date Smoking Tobacco: Never Assessed Sex Assigned at Date Recorded Not on file documented as of this encounter Plan of Treatment Not on filedocumented as of this encounter Visit Diagnoses Diagnosis Allergic rhinitis, cause unspecified Unspecified asthma(493.90) ([facility]) Unspecified asthma Need for desensitization to allergens documented in this encounter Care Teams Forestry Workers Relationship Specialty Start Date End Date Raulito Saez APRN, CNP PCP - General 12/24/10 09/25/18 documented as of this encounter
--- OUTSIDE RECORDS SUMMARY | 2022-06-21 11:35 | XMS_ITS | Encounter Summary ---
:1970 Author Organization [employer] Address [address] [address] Care Team Providers Name Role Phone Raulito Saez CHITO LUNDBERG Primary Care Provider [phone] Reason for Visit Reason Comments Follow-up Encounter Details Date Type Department Care Team Description 09/02/2011 Office Visit [facility] 3800 Brenda Copeland Unsp ecified asthma (Primary Dx); Allergy Allergic rhinitis, cause unspecified; [address] Marva Frost [address] [place] [address] [place] [phone] (Wo rk) Social History Tobacco Use Types Packs/Day Years Used Date Smoking Tobacco: Never Assessed Sex Assigned at Date Recorded Not on file documented as of this encounter Last Filed Vital Signs Vital Sign Reading Time Taken Comments Blood Pressure 120/80 09/02/2011 10:45 AM FLOOR SUPERVISOR Pulse - - Temperature - - Respiratory Rate - - Oxygen Saturation - - Inhaled Oxygen Concentration - - Weight 98.4 kg (217 lb) 09/02/2011 10:45 AM FLOOR SUPERVISOR Height 184.2 cm (6' 0.5) 09/02/2011 10:45 AM FLOOR SUPERVISOR Body Mass Index 29.03 09/02/2011 10:45 AM FLOOR SUPERVISOR documented in this encounter Patient Instructions Patient InstructionsBrenda Copeland MD - 09/02/2011 11:37 AM CST Prednisone should be used for 5-10 days. Save extra for further use if avaiable. R SUPERVISOR documented in this encounter Progress Notes Brenda [...] surgeries. He does exercise with a personal financial counselor on a regular basis and runs daily. [...] home. He is 2 children in the [employer] [place]. 1 elderly lab-smith dog and [...] immunotherapy. Patient will receive her shots at [facility] rather than [place] for convenience and work schedule. 3. No change in medications. 4. Return to clinic one year or p.r.n. documented in this encounter Plan of Treatment Not on filedocumented as of this encounter Visit Diagnoses Diagnosis Unspecified asthma(493.90) ([facility]) - Prima ry Unspecified asthma Allergic rhinitis, cause unspecified Esophageal reflux documented in this encounter Care Teams Welder Tack Relationship Specialty Start Date End Date Raulito Saez, MAT CLEANING MACHINE OPERATOR, INTEGRATED CAMPAIGN MANAGER PCP - General 12/24/10 09/25/18 documented as of this encounter
--- OUTSIDE RECORDS SUMMARY | 2022-06-21 11:35 | XMS_ITS | Encounter Summary ---
:1970 Author Organization [employer] Address [address] [address] Care Team Providers Name Role Phone Raulito Saez APRNCHITO Primary Care Provider Encounter Details Date Type Department Care Team Description 01/14/2011 PN Conversion Only [facility] [facility] 3800 CONV Rick Limon MD 3800 [facility] [address] [place] [address] [phone] (Wo rk) Social History Tobacco Use Types [...] POST VASECTOMY CHECK (01/14/2011 12:05 PM CDT) [facility] gist Method Time Signature Where Collected Off [...] on filedocumented in this encounter Care Teams Chief Of Police Relationship Specialty Start Date End Date Raulito Saez APRN, PROJECTS MANAGER PCP - General 12/24/10 09/25/18 documented as of this encounter
--- OUTSIDE RECORDS SUMMARY | 2022-06-21 11:35 | XMS_ITS | Encounter Summary ---
:1970 [facility] Address [address] [address] Care Team Providers Name Role Phone Laci Hall MD Primary Care Provider Encounter Details Date Type Department Care Team Description 12/18/2010 PN Conversion Only [facility] [address] [address] [place] [address] Social History Tobacco Use Types Packs/Day Years Used Date Smoking Tobacco: Never Assessed Sex Assigned at Date Recorded Not on file documented as of this encounter Plan of Treatment Not on filedocumented as of this encounter Visit Diagnoses Not on filedocumented in this encounter Care Teams Mutton Puncher Relationship Specialty Start Date End Date Laci Hall MD PCP - General 12/20/10 12/23/[address] [place] [id number] documented as of this encounter
--- OUTSIDE RECORDS SUMMARY | 2022-06-21 11:35 | XMS_ITS | Encounter Summary ---
:1970 Author Organization [facility] Address [address], [place] [address] Care Team Providers Name Role Phone Raulito Saez Yemi LUNDBERG CNP Primary Care Provider [phone] Reason for Visit Reason Comments Abdominal Pain Encounter Details Date Type Department Care Team Description 03/10/2012 Hospital Encounter [facility] Janice Pearson Ac tazlina epigastric pain; Care PA-C [place] [address] [address] [facility] [place] [address] [phone] Social History Tobacco Use Types Packs/Day Years [...] file until Unspecified pt. requests refill. asthma(493.90) ([facility]) fluticasone (AKA Place 2 sprays into 16 g 11 09/15/2011 10/17/2012 FLONASE) 50 MCG/ACT each nostril daily nasal solution (every 24 hours). Dose is for each nostril. Indications: ALLERGIC RHINITIS fluticasone-salmeterol Inhale 1 puff 2 times 1 Inhaler 09/23/2012 (AKA ADVAIR DISKUS) daily. Needs appt 250-50 MCG/DOSE diskus before further inhalerIndications: refills. Unspecified asthma(493.90) ([facility]) documented as of this encounter Progress Notes Janice Pearson PA-C - 03/10/2012 4:46 PM CDT Quick Note: Janice Pearson PA-C 4:48 PM 03/10/2012 documented in this encounter ED Notes Janice Pearson PA-C - 03/10/2012 6:56 PM CDT ED Provider Notes signed by Janice Pearson PA-C at 03/27/12958 Author: Janice Pearson PA-C Service: (none) Author Type: Physician Hand Knitter Filed: 03/27/12 0959 Note Time: 03/10/121855 Status: Signed Playground Attendant: Janice Pearson PA-C (Physician Hand Knitter) NAME: HAYDEN AMARO MR#: [id number] CSN: [id number] AUTHENTICATING CLINICIAN: Janice Pearson PA-C CONFIRM #: [id number] LOC: 520 URGENT CARE PROGRESS NOTE DATE OF VISIT: 03/10/2012 : 1970 Jhvtu-heq-zzwx-old male presents today for 3 days of [...] in Epic. EXAM: VITAL SIGNS: Reviewed in [facility]. He is in no distress. He does [...] scheduled to go on vacation. Try some otfr-eaq-drlhkwy simethicone, avoid gaseous forming stools. If symptoms persisting, he needs to have recheck. Of course if he develops more severe pain or increase in symptoms, may need a recheck sooner, but he will otherwise follow up p.r.nSailaja QUICK:NOHEMY C: CONFIRM #: [id number] documented in this encounter Miscellaneous Notes Miscellaneous - 03/10/2012 4:46 PM CDTNotes Recorded by Janice Pearson PA-C on 03/10/2012 at 4:48 PMMarirasheeda Pearson PA-C 4:48 PM 03/10/2012 NCE INTERN Medication History - Mohsen Diaz MD - [...] loops of both large and small bowel. [place] el gas pattern is nonspecific but not [...] - 03/10/2012 4:08 PM CDT Performed at [facility] ([facility] [address] [place] [address] Janice Pearson LUIZAC LAB_1 Performing Organization Address [facility] Phon e Number HP CONVERSION BEDSIDE GLUCOSE MONITOR (03/10/2012 3:57 PM CDT) athologist Signature Bedside Blood 90 mg/dL HP CONVERSION Glucose Test Specimen Anatomical Collection Method Collection Time Receive d Time (Source) Location / / Volume Laterality 03/10/2012 3:57 PM 2 3:57 CDT PM CDT Narrative HP CONVERSION - 03/10/2012 4:05 PM CDT Performed at [facility] ([facility] [address] [place] [address] Janice Pearson STEPHANIE-C LAB_1 Performing Organization Address [facility] Phon e Number HP CONVERSION Bilirubin, Total (03/10/2012 3:57 PM CDT) athologist Signature Bilirubin Total 1.0 0.2 - 1.2 HP CONVERSION mg/dL Specimen Anatomical Collection Method Collection Time Receive d Time (Source) Location / / Volume Laterality 03/10/2012 3:57 PM 2 3:57 CDT PM CDT Narrative HP CONVERSION - 03/10/2012 4:18 PM CDT Performed at [facility] [address] [place] [address] Janice Pearsno STEPHANIE-C LAB_1 Performing Organization Address [facility] Phon e Number HP CONVERSION Amylase (03/10/2012 3:57 PM CDT) athologist Signature Amylase Serum 32 25 - 115 HP CONVERSION U/L Specimen Anatomical Collection Method Collection Time Receive d Time (Source) Location / / Volume Laterality 03/10/2012 3:57 PM 2 3:57 CDT PM CDT Narrative HP CONVERSION - 03/10/2012 4:18 PM CDT Performed at [facility] [address] [place] [address] Janice Diallo Lili MCRAE LAB_1 Performing Organization Address [facility] Phon e Number HP CONVERSION Lipase (03/10/2012 3:57 PM CDT) athologist Signature Lipase 43 5 - 70 U/L HP CONVERSION Specimen Anatomical Collection Method Collection Time Receive d Time (Source) Location / / Volume Laterality 03/10/2012 3:57 PM 2 3:57 CDT PM CDT Narrative HP CONVERSION - 03/10/2012 4:18 PM CDT Performed at [facility] [address] [place] [address] Janice Diallo Lili MCRAE LAB_1 Performing Organization Address [facility] Phon e Number HP CONVERSION Hemogram/Plts/Diff [...] - 03/10/2012 4:08 PM CDT Performed at [facility] [address] [place] [address] Janice Diallo Lili MCRAE LAB_1 Performing Organization Address [facility] Phon e Number HP CONVERSION AST (03/10/2012 3:57 PM CDT) Patholo gist Method Time Signature Aspartate 33 0 - 45 HP CONVERSION Aminotransferase U/L Specimen Anatomical Collection Method Collection Time Receive d Time (Source) Location / / Volume Laterality 03/10/2012 3:57 PM 2 3:57 CDT PM CDT Narrative HP CONVERSION - 03/10/2012 4:18 PM CDT Performed at [facility] [address] [place] [address] Janice Diallo Lili MCRAE LAB_1 Performing Organization Address [facility] Phon e Number HP CONVERSION ALT (SGPT) (03/10/2012 3:57 PM CDT) [facility] gist Method Time Signature Alanine 44 4 - 55 HP CONVERSION Aminotransferase U/L Specimen Anatomical Collection Method Collection Time Receive d Time (Source) Location / / Volume Laterality 03/10/2012 3:57 PM 2 3:57 CDT PM CDT Narrative HP CONVERSION - 03/10/2012 4:18 PM CDT Performed at [facility] [address] [place] [address] Janice Diallo Lili MCRAE LAB_1 Performing Organization Address [facility] Phon e Number HP CONVERSION documented in this encounter Visit Diagnoses Diagnosis Acute epigastric pain Abdominal pain, epigastric Gassiness Flatulence, eructation, and gas pain documented in this encounter Care Teams Car Chaser Relationship Specialty Start Date End Date Raulito Saez APRN, HAND I TUBE BENDER PCP - General 12/24/10 09/25/18 documented as of this encounter
--- OUTSIDE RECORDS SUMMARY | 2022-06-21 11:35 | XMS_ITS | Encounter Summary ---
:1970 Author Organization [facility] Address [address] [address] Care Team Providers Name Role Phone Raulito Saez APRN, CNP Primary Care Provider [phone] Reason for Visit Reason Comments Post Hospital Discharge Follow Up Encounter Details Date Type Department Care Team Description 04/09/2012 Telephone [facility] Raulito Saez P [facility] Medicine [place] [address] [place] [address] [place] [address] [phone] (Wo rk) Social History Tobacco Use Types Packs/Day Years Used Date Smoking Tobacco: Never Assessed Sex Assigned at Date Recorded Not on file documented as of this encounter Nursing Notes Alyse Loving RN - 04/09/2012 10:26 AM CDT Post hospitalization discharge follow up call completed. See doc flowsheet: [facility] for details. Patient has his primary care through a physician in [place] and that is where he will have his follow-up care. documented in this encounter Plan of Treatment Not on filedocumented as of this encounter Visit Diagnoses Not on filedocumented in this encounter Care Teams Engineering Job Titles Relationship Specialty Start Date End Date Raulito Saez, CORRECTIONS IDENTIFICATION TECHNICIAN, WEDDING TRANSPORTATION DRIVER PCP - General 12/24/10 09/25/18 documented as of this encounter
--- OUTSIDE RECORDS SUMMARY | 2022-06-21 11:35 | XMS_ITS | Encounter Summary ---
:1970 Author Organization [employer] Address [address], [place] [address] Care Team Providers Name Role Phone Raulito Saez CHITO LUNDBERG Primary Care Provider [phone] Reason for Visit Reason Comments Refill Encounter Details Date Type Department Care Team Description 09/01/2011 Refill [facility] 3800 A llergy Brenda Copeland MD Refill [address] [place] [address] [place], [place] [address] (Wo rk) Social History Tobacco Use Types Packs/Day Years Used Date Smoking Tobacco: Never Assessed Sex Assigned at Date Recorded Not on file documented as of this encounter Nursing Notes Brenda Coepland MD - 09/02/2011 12:48 PM CST New rx sent. S TRAINING REPRESENTATIVE Mirella Serrano - 09/02/2011 9:19 AM CST [facility] Has appt with you today. Please address. documented in this encounter Plan of Treatment Not on filedocumented as of this encounter Visit Diagnoses Not on filedocumented in this encounter Care Teams Slot Editor Relationship Specialty Start Date End Date Raulito Saez, FIELD HEALTH OFFICER, SHEET METAL SHOP SUPERVISOR PCP - General 12/24/10 09/25/18 documented as of this encounter
--- OUTSIDE RECORDS SUMMARY | 2022-06-21 11:35 | XMS_ITS | Encounter Summary ---
:1970 Author Organization [email or web address] Address [address], [place] [address] Care Team Providers Name Role Phone Raulito Saez Yemi LUNDBERG CNP Primary Care Provider [phone] Encounter Details Date Type Department Care Team Description 12/24/2010 PN Conversion Only [facility] [address] [place] [address] Social History Tobacco Use Types Packs/Day Years [...] Dictating EVERETTE AMAYA Radiologist Raulito Saez APRN FRONT OFFICE HELP RAD MRI documented in this encounter Visit Diagnoses Not on filedocumented in this encounter Care Teams Lehr Stripper Relationship Specialty Start Date End Date Raulito Saez APRN, FRONT OFFICE HELP PCP - General 12/24/10 09/25/18 documented as of this encounter
--- OUTSIDE RECORDS SUMMARY | 2022-06-21 11:35 | XMS_ITS | Encounter Summary ---
:1970 Author Organization [facility] Address [address], [place] [address] Care Team Providers Name Role Phone Raulito Saez APRN, CNP Primary Care Provider [phone] Encounter Details Date Type Department Care Team Description 01/25/2011 PN Conversion Only [facility] 3800 Mic Copeland MD Allergy 3800 [facility] [address] [facility] [place] [address] [phone] Social History Tobacco Use Types Packs/Day Years Used Date Smoking Tobacco: Never Assessed Sex Assigned at Date Recorded Not on file documented as of this encounter Plan of Treatment Not on filedocumented as of this encounter Visit Diagnoses Not on filedocumented in this encounter Care Teams Weekend Caregiver Relationship Specialty Start Date End Date Raulito Saez APRN, CNP PCP - General 12/24/10 09/25/18 documented as of this encounter
--- OUTSIDE RECORDS SUMMARY | 2022-06-21 11:35 | XMS_ITS | Encounter Summary ---
:1970 Author Organization [facility] Address [address] [address] Care Team Providers Name Role Phone Raulito Saez APRN, CNP Primary Care Provider [phone] Reason for Visit Reason Comments Refill Encounter Details Date Type Department Care Team Description 01/15/2013 Telephone [facility] [address] A Brenda Guaman MD Refill [address] [place] [address] [place], [place] [address] (Wo rk) Social History Tobacco Use Types Packs/Day Years Used Date Smoking Tobacco: Never Assessed Sex Assigned at Date Recorded Not on file documented as of this encounter Nursing Notes Adele Broussard, NICOLE - 01/16/2013 11:11 AM CDT Rx for Advair 250/50 faxed to pharm per standing order as previously ordered by [facility]. Note complete. documented in this encounter Plan of Treatment Not on filedocumented as of this encounter Visit Diagnoses Not on filedocumented in this encounter Care Teams Building Rigger Relationship Specialty Start Date End Date Raulito Saez APRN, CNP PCP - General 12/24/10 09/25/18 documented as of this encounter
--- OUTSIDE RECORDS SUMMARY | 2022-06-21 11:35 | XMS_ITS | Encounter Summary ---
:1970 Author Organization [facility] Address [address] [address] Care Team Providers Name Role Phone Nasrin Elliott PBX REPAIRER, TRUCK GREASER Primary Care Provider [phone] Reason for Visit Reason Comments Other Encounter Details Date Type Department Care Team Description 12/25/2010 Telephone [facility] Kyra Badillo LPN Other [address] [place] [address] Social History Tobacco Use Types Packs/Day Years Used Date Smoking Tobacco: Never Assessed Sex Assigned at Date Recorded Not on file documented as of this encounter Progress Notes Center, Message - 12/25/2010 9:57 AM CDT Lab/Radiology Results Caller Name/Relationship:Hayden Primary Nutrition Services Aide:Nadja What test result is needed?MRI spine When and where was test done?[facility] 12/24/10 Who ordered the test?Nadja Flat Breakdown Processor:Hayden Best call back number:[phone] Is it OK to leave a confidential [...] on filedocumented in this encounter Care Teams Computational Sciences Professor Relationship Specialty Start Date End Date Nasrin Elliott, PBX REPAIRER, TRUCK GREASER PCP - General 12/24/10 09/25/18 documented as of this encounter
--- OUTSIDE RECORDS SUMMARY | 2022-06-21 11:35 | XMS_ITS | Encounter Summary ---
:1970 Author Organization [employer] Address [address] [address] Care Team Providers Name Role Phone Raulito Saez CHITO LUNDBERG Primary Care Provider [phone] Reason for Visit Reason Comments Refill Encounter Details Date Type Department Care Team Description 09/23/[address] [facility] [address] Brenda Guaman MD Refill [address] [place] [address] [place], [place] [address] (Wo rk) Social History Tobacco Use Types Packs/Day Years Used Date Smoking Tobacco: Never Assessed Sex Assigned at Date Recorded Not on file documented as of this encounter Nursing Notes Devyn Rock - 09/25/2012 11:00 AM CST Left message to schedule appt., reminder letter sent. Benita Corona RN - 09/25/2012 10:49 AM CST [facility] pt:last seen 09/02/11 no f/u appt/please call pt and schedule f/u appt.note ..Rx faxed x 1 for advair 250/50. documented in this encounter Plan of Treatment Not on filedocumented as of this encounter Visit Diagnoses Not on filedocumented in this encounter Care Teams Air Compressor Mechanic Relationship Specialty Start Date End Date Raulito Saez APRN, DESKTOP OPERATOR PCP - General 12/24/10 09/25/18 documented as of this encounter
--- OUTSIDE RECORDS SUMMARY | 2022-06-21 11:35 | XMS_ITS | Encounter Summary ---
:1970 Author Organization [facility] Address [address], [place] [address] Care Team Providers Name Role Phone Raulito Saez APRN, CNP Primary Care Provider [phone] Reason for Visit Reason Comments Refill Encounter Details Date Type Department Care Team Description 11/08/2012 Refill [facility] 38[address] A llergy Mirella Serrano Refill [address] [place] [address] [place], [place] [address] Social History Tobacco Use Types Packs/Day Years [...] on filedocumented in this encounter Care Teams Agent Broker Relationship Specialty Start Date End Date Raulito Saez APRN, CNP PCP - General 12/24/10 09/25/18 documented as of this encounter
--- OUTSIDE RECORDS SUMMARY | 2022-06-21 11:35 | XMS_ITS | Encounter Summary ---
:1970 Author Organization [facility] Address [address] [address] Care Team Providers Name Role Phone Raulito Saez APRN, CNP Primary Care Provider [phone] Reason for Visit Reason Comments IMMUNIZATIONS Encounter Details Date Type Department Care Team Description 07/22/2011 Immunization [place] [facility] Nurse, [place] Need f or influenza Medicine Fp vaccination (Primary [address] Dx) [place] [address] Social History Tobacco Use Types Packs/Day Years Used Date Smoking Tobacco: Never Assessed Sex Assigned at Date Recorded Not on file documented as of this encounter Plan of Treatment Not on filedocumented as of this encounter Visit Diagnoses Diagnosis Need for influenza vaccination - Primary Need for prophylactic vaccination and in oculation against influenza documented in this encounter Care Teams Local Announcer Relationship Specialty Start Date End Date Raulito Saez APRN, CNP PCP - General 12/24/10 09/25/18 documented as of this encounter
--- OUTSIDE RECORDS SUMMARY | 2022-06-21 11:35 | XMS_ITS | Encounter Summary ---
:1970 Author Organization [facility] Address [address], [place] [address] Care Team Providers Name Role Phone Raulito Saez Yemi LUNDBERG CNP Primary Care Provider [phone] Reason for Visit Reason Comments Follow-up Encounter Details Date Type Department Care Team Description 01/08/2014 Office Visit [facility] Brenda Copeland, Unspecified asthma(493.90) ( Primary Dx); [address] [facility] Allergic rhinitis, [place] [address] [facility] [phone] [place] [address] (Wo rk) Social History Tobacco [...] Filed: 01/08/141906 Note Time: 01/08/141406 Status: Signed Post Exchange Manager: Brenda Copeland MD (Physician) NAME: HAYDEN AMARO MR#: [id number] CSN: [id number] AUTHENTICATING CLINICIAN: Brenda Copeland MD CONFIRM #: [id number] LOC: 514 CLINIC PROGRESS NOTE DATE OF [...] health. He has 2 children within the [employer]. Two Labradoodle dogs. Nonsmoker. He [...] clinic with me 1 year or p.r.n. [facility]:MEDQ C: CONFIRM #: [id number] documented in this encounter Miscellaneous Notes Letter - Brenda Copeland MD - 01/08/2014 12:00 AM CDT My Asthma Management Plan Name: Hayden Amaro Date: 01/08/2014 My Medical Provider: Raulito Saez My Asthma Specialist: Brenda Copeland MD My Clinic: [facility] Phone #: [phone] Know your asthma triggers: Colds and Viruses [...] to help you quit smoking, or call [phone]. Colds, Flu, Bronchitis These are common triggers [...] Some medicines and food can trigger asthma. [employer] documented in this encounter Plan of Treatment Not on filedocumented as of this encounter Visit Diagnoses Diagnosis Unspecified asthma(493.90) ([facility]) - Prima ry Unspecified asthma Allergic rhinitis, cause unspecified documented in this encounter Care Teams Options Trader Relationship Specialty Start Date End Date Raulito Saez, RN CVICU, LABORATORY ENGINEER PCP - General 12/24/10 09/25/18 documented as of this encounter
--- OUTSIDE RECORDS SUMMARY | 2022-06-21 11:36 | XMS_ITS | Encounter Summary ---
:1970 Author Organization [facility] Address [address], [place] [address] Care Team Providers Name Role Phone Raulito Saez APRN LAMINATION TECHNICIAN Primary Care Provider [phone] Reason for Visit Reason Comments Other Encounter Details Date Type Department Care Team Description 09/09/2008 Telephone [facility] [address] Brenda Guaman MD Other [address] [facility] [address] [place] [address] [place], [place] [address] (Wo rk) Social History Tobacco Use Types Packs/Day Years Used Date Smoking Tobacco: Never Assessed Sex Assigned at Date Recorded Not on file documented as of this encounter Progress Notes Brenda Orta MD - 09/09/2008 5:16 PM CST Phone Note filed by Brenda Orta MD at 01/07/11 2806 Author: Brenda Orta MD Service: (none) Author Type: Physician Filed: 01/07/11 1316 Note Time: 09/09/081715 Status: Signed Rotary Cutter Operator: Brenda Orta MD (Physician) Spoke to patient. Discussed CT scan of sinuses which shows diffuse disease. Consult ENT. Created on 09Sep2008 5:16pm by BRENDA ORTA SSMENT ANALYST documented in this encounter Plan of Treatment Not on filedocumented as of this encounter Visit Diagnoses Not on filedocumented in this encounter Care Teams Graphite Pan Drier Tender Relationship Specialty Start Date End Date Raulito Saez, IT ASSOCIATE, LAMINATION TECHNICIAN PCP - General 12/24/10 09/25/18 documented as of this encounter
--- OUTSIDE RECORDS SUMMARY | 2022-06-21 11:36 | XMS_ITS | Encounter Summary ---
:1970 Author Organization [employer] Address [address], [place] [address] Care Team Providers Name Role Phone Laci Hall MD Primary Care Provider Encounter Details Date Type Department Care Team Description 09/03/2008 Office Visit [facility] [place] [id number] [place] [id number] (Wo rk) Social History Tobacco Use Types Packs/Day Years Used Date Smoking Tobacco: Never Assessed Sex Assigned at Date Recorded Not on file documented as of this encounter Last Filed Vital Signs Vital Sign Reading Time Taken Comments Blood Pressure 128/90 09/03/2008 2:08 PM MINE SAFETY ENGINEER Pulse - - Temperature - - Respiratory Rate - - Oxygen Saturation - - Inhaled Oxygen Concentration - - Weight 100.7 kg (221 lb 15.7 09/03/2008 2:08 PM C: 100. 7kg oz) MINE SAFETY ENGINEER Height 184.2 cm (6' 0.5) 09/03/2008 2:08 PM C: 184.2cm MINE SAFETY ENGINEER Body Mass Index 29.69 09/03/2008 2:08 PM MINE SAFETY ENGINEER documented in this encounter Progress Notes Brenda Copeland MD - 09/03/2008 12:01 AM CST Progress Notes signed by Brenda Copeland MD at 09/10/08 1555 Author: Brenda Copeland MD Service: (none) Author Type: Physician Filed: 01/09/11 0920 Note Time: 09/03/08 0001 Status: Signed Skin Piler: Brenda Copeland MD (Physician) NAME: HAYDEN AMARO MR#: [id number] ACCT: [id number] VISIT: [id number] DICTATING CLINICIAN: BRENDA COPELAND MD CONFIRM #: [id number] LOC: 514 CLINIC PROGRESS NOTE DATE OF VISIT: 09/03/2008 SUBJECTIVE: : 1970. Hayden is a 38-year-old white male with a history of severe asthma complicated by reflux, nasal polyposis, requiring previous multiple surgeries and allergic rhinitis. He has been on shots here at [facility] since 07/2007. He obtains 1 shot for [...] control symptoms. He states while living in [place] he was having almost yearly surgery. Asthma [...] scan of sinuses and ENT consult. PLAN: [facility]:[id number] C: 09/03/08 23:08 CONFIRM #: [id number] SAFETY ENGINEER documented in this encounter Plan of Treatment Not on filedocumented as of this encounter Procedures Procedure Name Priority Date/Time Associated Diagnosis Comme nts CT SINUS WO IV CONT Routine 09/03/2008 3:12 PM Re sults for this MINE SAFETY ENGINEER procedure are i n the results section. documented in this encounter Results CT Sinus WO IV Cont (09/03/2008 3:12 PM MINE SAFETY ENGINEER) Anatomical Region Laterality Modality Head Other Specimen (Source) Anatomical Location Collection Method / Collectio n Time Received Time / Laterality Volume Narrative 09/03/2008 3:12 PM MINE SAFETY ENGINEER Sinuses were scanned coronally and show complete [...] and left ethmoid sinus are relatively clear. [id number]/fiore Dictating HU KIRK MD Procedure Note Hu [...] and left ethmoid sinus are relatively clear. 585956/fiore Dictating HU KIRK MD Brenda Copeland MD RAD CT documented in this encounter Visit Diagnoses Not on filedocumented in this encounter Care Teams Wire Stripping Machine Operator Relationship Specialty Start Date End Date Laci Hall MD PCP - General 12/20/10 12/23/10 [address] [place] [address] documented as of this encounter
--- OUTSIDE RECORDS SUMMARY | 2022-06-21 11:36 | XMS_ITS | Encounter Summary ---
:1970 Author Organization [facility] Address [address] [address] Care Team Providers Name Role Phone Laci Hall MD Primary Care Provider Encounter Details Date Type Department Care Team Description 05/28/2008 Office Visit [facility] [place] [address] [address] (Wo rk) Social History Tobacco [...] 0653 Note Time: 05/28/08 0001 Status: Signed Louver Door Assembler: Rick Limon MD (Physician) NAME: HAYDEN AMARO MR#: [id number] ACCT: [id number] VISIT: [id number] DICTATING CLINICIAN: Rick Limon MD CONFIRM #: [id number] LOC: [facility] CLINIC PROGRESS NOTE DATE 05/28/2008: Mr. Amaro [...] may require surgical treatment as well. DATE: [facility]:[id number] C: 05/29/08 09:23 CONFIRM #: [id number] documented in this encounter Plan of Treatment Not on filedocumented as of this encounter Visit Diagnoses Not on filedocumented in this encounter Care Teams Secretary Receptionist Relationship Specialty Start Date End Date Laci Hall MD PCP - General 12/20/10 12/23/10 [address] [place] [address] documented as of this encounter
--- OUTSIDE RECORDS SUMMARY | 2022-06-21 11:36 | XMS_ITS | Encounter Summary ---
:1970 Author Organization [employer] Address [address] [address] Care Team Providers Name Role Phone Laci Hall MD Primary Care Provider Encounter Details Date Type Department Care Team Description 06/20/2009 PN Conversion Only [facility] [address] [place] [address] Social History Tobacco Use Types Packs/Day Years [...] Dictating SAQIB BORDEN Radiologist Raulito W Nadja OIL TESTER, RESEARCH ELECTRICIAN RAD US documented in this encounter Visit Diagnoses Not on filedocumented in this encounter Care Teams Senior Communications Specialist Relationship Specialty Start Date End Date Laci Hall MD PCP - General 12/20/10 12/23/10 [address] [place] [id number] documented as of this encounter
--- OUTSIDE RECORDS SUMMARY | 2022-06-21 11:36 | XMS_ITS | Encounter Summary ---
:1970 Author Organization [facility] Address [address], [place] [address] Care Team Providers Name Role Phone Laci Hall MD Primary Care Provider Encounter Details Date Type Department Care Team Description 07/28/2009 PN Conversion Only [facility] 3800 CONV Rick Limon MD 3800 [facility] [address] [place] [address] (Wo rk) Social History Tobacco Use Types Packs/Day Years Used Date Smoking Tobacco: Never Assessed Sex Assigned at Date Recorded Not on file documented as of this encounter Plan of Treatment Not on filedocumented as of this encounter Procedures Procedure Name Priority Date/Time Associated Diagnosis Comme nts POST VASECTOMY Routine 07/28/2009 11:35 AM Result s for this CHECK BANQUET DIRECTOR procedure are i n the results section. documented in this encounter Results POST VASECTOMY CHECK (07/28/2009 11:35 AM BANQUET DIRECTOR) [facility] gist Method Time Signature Time collected- [...] / / Volume Laterality 07/28/2009 11:35 AM BANQUET DIRECTOR Rick Limon MD LAB_1 Performing Organization Address City/State/ZIP Code Phon e Number HP CONVERSION documented in this encounter Visit Diagnoses Not on filedocumented in this encounter Care Teams Hospital Attendant Relationship Specialty Start Date End Date Laci Hall MD PCP - General 12/20/10 12/23/[address] [place] [address] documented as of this encounter
--- OUTSIDE RECORDS SUMMARY | 2022-06-21 11:36 | XMS_ITS | Encounter Summary ---
:1970 Author Organization [facility] Address [address] [address] Care Team Providers Name Role Phone Nasrin Elliott APRN, QUALITY IMPROVEMENT SPECIALIST Primary Care Provider [phone] Reason for Visit Reason Comments Other Encounter Details Date Type Department Care Team Description 06/23/2009 Telephone [facility] Kyra Badillo LPN Other [address] [place] [address] Social History Tobacco Use Types Packs/Day Years Used Date Smoking Tobacco: Never Assessed Sex Assigned at Date Recorded Not on file documented as of this encounter Progress [facility] Center, Message - 06/23/2009 7:34 AM CDT Phone Note filed by [employer] at 01/08/11 5202 Author: [employer] Service: (none) Author Type: (none) Filed: 01/08/111338 Note Time: 06/23/09 07 Status: Signed Repossessor: [employer] (Resource) RAD RESULTS AVAIL IN LW; US RUQ Created on 23Jun2009 7:34am by BRYSON MARTÍNEZ On 23Jun2009 11:10am NASRIN ELLIOTT wrote: called, normal results given, will follow up if not resolving. Acknowledged by NASRIN ELLIOTT on 11:10am Acknowledged by KYRA BADILLO on 11:25am AL INSPECTOR documented in this encounter Plan of Treatment Not on filedocumented as of this encounter Visit Diagnoses Not on filedocumented in this encounter Care Teams Moisture Meter Reader Relationship Specialty Start Date End Date Nasrin Elliott, SOFTWARE VALIDATION ENGINEER, QUALITY IMPROVEMENT SPECIALIST PCP - General 12/24/10 09/25/18 documented as of this encounter
--- OUTSIDE RECORDS SUMMARY | 2022-06-21 11:36 | XMS_ITS | Encounter Summary ---
:1970 Author Organization [facility] Address [address] [address] Care Team Providers Name Role Phone Raulito Saez Yemi LUNDBERG CNP Primary Care Provider [phone] Reason for Visit Reason Comments Other Encounter Details Date Type Department Care Team Description 08/13/2008 Telephone [facility] [address] [employer] [place], Message Other [address] [place], [place] [address] Social History Tobacco Use Types Packs/Day Years Used Date Smoking Tobacco: Never Assessed Sex Assigned at Date Recorded Not on file documented as of this encounter Progress Notes Center, Message - 08/13/2008 10:49 AM CST Phone Note filed by [employer] at 01/07/11 7127 Author: [employer] Service: (none) Author Type: (none) Filed: 01/07/11 1110 Note Time: 08/13/08 1049 Status: Signed Executive Cyber Leader: [employer] Prescription Refill Please provide enough refills to last until patient's next visit. Comment:-Last appt 02-24-08; next 09-03-08 Pharmacy Seq #:-[phone] [facility] [phone] [facility] Name[facility]Yasmin Drug Name/Strength:-Proventil HFA Aer Sig: Dose/Route/Freq:-2 puffs every 4 hr prn Quantity & Last Fill:-#9 09-25-08 Created on 13Aug2008 10:49am by LUC LAZO On 13Aug2008 11:26am CHANCE AGUAYO wrote: Rx faxed per standing order. LEVEL PROVIDER documented in this encounter Plan of Treatment Not on filedocumented as of this encounter Visit Diagnoses Not on filedocumented in this encounter Care Teams Filling Separator Relationship Specialty Start Date End Date Raulito Saez, AUTO SERVICER, FIREARMS INSPECTOR PCP - General 12/24/10 09/25/18 documented as of this encounter
--- OUTSIDE RECORDS SUMMARY | 2022-06-21 11:36 | XMS_ITS | Encounter Summary ---
:1970 Author Organization [facility] Address [address] [address] Care Team Providers Name Role Phone Raulito Saez CHITO LUNDBERG Primary Care Provider [phone] Reason for Visit Reason Comments Other Encounter Details Date Type Department Care Team Description 08/03/2010 Telephone [place] [address] [facility] [address] [place] [address] Social History Tobacco Use Types [...] Filed: 01/09/112250 Note Time: 08/03/101428 Status: Signed Acquisitions Assistant: Becka Martinez RN (Registered Nurse) [facility] pt, jin 07/14/10. Pt said is going to be restarting allergy injections going to [place]. Pt wondering if serums were ready. Informed pt card would be mailed pt pt's home when serums completed and then can get first injection. Pt states understanding. PT; [phone] to lm. Created on 03Aug2010 2:29pm by BECKA MARTINEZ ROL SYSTEM COMPUTER SCIENTIST documented in this encounter Plan of Treatment Not on filedocumented as of this encounter Visit Diagnoses Not on filedocumented in this encounter Care Teams Pipe Turner Relationship Specialty Start Date End Date Raulito Saez APRN, SOA ARCHITECT PCP - General 12/24/10 09/25/18 documented as of this encounter
--- OUTSIDE RECORDS SUMMARY | 2022-06-21 11:36 | XMS_ITS | Encounter Summary ---
:1970 Author Organization [employer] Address [address] [address] Care Team Providers Name Role Phone Raulito Saez APRN, SOLE CONFORMING MACHINE OPERATOR Primary Care Provider [phone] Encounter Details Date Type Department Care Team Description 09/22/2010 Transmission Worker Only [facility] Brenda Copeland MD 1415 [facility] . [address] [facility] [place] [address] Bl [phone] [place], [place] [id number] (Wo rk) Social History Tobacco Use Types [...] once when he attended a New Year's green party at a home with a cat. EXAM: Oral pharynx clear. No exudate. Lungs: clear with good air movement. SPIROMETRY: Unchanged from previous. FEV1 3.88 L (85% predicted), FVC 4.91 L (86% predicted), FEV1/FVC 79%, FEF 25-50% 3.40 L/S (81% predicted). IMPRESSION: Asthma: clinically and objectively stable. Allergic Rhinitis: proceed with plan. RTC as previously scheduled. IR SERVICER documented in this encounter Plan of Treatment Not on filedocumented as of this encounter Visit Diagnoses Not on filedocumented in this encounter Care Teams Antenna Rigger Relationship Specialty Start Date End Date Raulito Saez, FRUIT PACKER, SOLE CONFORMING MACHINE OPERATOR PCP - General 12/24/10 09/25/18 documented as of this encounter
--- OUTSIDE RECORDS SUMMARY | 2022-06-21 11:36 | XMS_ITS | Encounter Summary ---
:1970 Author Organization [employer] Address [address] [address] Care Team Providers Name Role Phone Laci Hall MD Primary Care Provider Encounter Details Date Type Department Care Team Description 06/18/2009 Office Visit [facility] Raulito Saez, Medicine CREDIT CORRESPONDENCE CLERK, SVP CHIEF MARKETING OFFICER [address] [place] [address] [place], [place] [address] (Wo rk) Social History Tobacco Use Types [...] Body Mass Index 29.83 09/03/2008 2:08 PM SPRAY OPERATOR documented in this encounter Progress Notes Raulito Saez, CREDIT CORRESPONDENCE CLERK, SVP CHIEF MARKETING OFFICER - 06/18/2009 12:01 AM CDT Progress Notes signed by YOHANA Seth at 06/18/09 0681 Author: YOHANA Seth Service: (none) Author Type: Nurse Practitioner Filed: 01/09/11 1643 Note Time: 06/18/09 0001 Status: Signed Embedded Firmware Engineer: YOHANA Seth (Nurse Practitioner) Chief concern: Right [...] symptoms increase, he was seen at the [facility] emergency department, bedside portable ultrasound obtained, reported [...] on filedocumented in this encounter Care Teams Fur Comber Relationship Specialty Start Date End Date Laci Hall MD PCP - General 12/20/10 12/23/10 [address] [place] [address] documented as of this encounter
--- OUTSIDE RECORDS SUMMARY | 2022-06-21 11:36 | XMS_ITS | Encounter Summary ---
:1970 Author Organization [employer] Address [address] [address] Care Team Providers Name Role Phone Laci Hall MD Primary Care Provider Encounter Details Date Type Department Care Team Description 05/15/2009 Office Visit [facility] Torri López MD [address] [address] [phone] Social History Tobacco Use Types Packs/Day Years [...] Body Mass Index 29.69 09/03/2008 2:08 PM PSYCHOMETRIC EXAMINER documented in this encounter Progress Notes Aurora López MD - 05/15/2009 12:01 AM CDT Progress Notes signed by Aurora López MD at 05/23/09 0811 Author: Aurora López MD Service: (none) Author Type: Physician Filed: 01/09/11 1552 Note Time: 05/15/092010 Status: Signed Invoicing Specialist: Aurora López MD (Physician) NAME: HAYDEN AMARO MR#: [id number] ACCT: [id number] VISIT: [id number] DICTATING CLINICIAN: AURORA LÓPEZ MD CONFIRM #: [id number] LOC: 506 CLINIC PROGRESS NOTE DATE OF VISIT: 05/15/2009 SUBJECTIVE: : 1970. HISTORY: 38-year-old with coughing and sinus drainage. He has a sore throat, a lot of sinus drainage, coughing. He is coughing up yellow and brown sputum. He was up at the [facility] recently on vacation. He has [...] his peak flow meter and use it. SME:[id number] C: 05/19/09 10:46 CONFIRM #: [id number] documented in this encounter Plan of Treatment Not on filedocumented as of this encounter Visit Diagnoses Not on filedocumented in this encounter Care Teams Paint Mixer Hand Relationship Specialty Start Date End Date Laci Hall MD PCP - General 12/20/10 12/23/10 [address] [address] [place] [address] documented as of this encounter
--- OUTSIDE RECORDS SUMMARY | 2022-06-21 11:36 | XMS_ITS | Encounter Summary ---
:1970 Author Organization [facility] Address [address] [address] Care Team Providers Name Role Phone Laci Hall MD Primary Care Provider Encounter Details Date Type Department Care Team Description 04/15/2009 Procedure Visit [facility] [place] [address] [place] [address] [phone] [address] (Wo rk) Social History Tobacco Use Types Packs/Day Years Used Date Smoking Tobacco: Never Assessed Sex Assigned at Date Recorded Not on file documented as of this encounter Progress Notes Rick Liomn MD - 04/15/2009 12:01 AM CDT Procedures signed by Rick Limon MD at 04/15/09 1514 Author: Rick Limon MD Service: (none) Author Type: Physician Filed: 01/09/11 1504 Note Time: 04/15/09 0001 Status: Signed Parimutuel Cashier: Rick Limon MD (Physician) NAME: HAYDEN AMARO MR#: [id number] ACCT: [id number] VISIT: [id number] DICTATING CLINICIAN: Rick Limon MD CONFIRM #: [id number] LOC: [facility] CLINIC PROCEDURE REPORT DATE OF VISIT: 04/15/2009 [...] up in 4 months for semen sample. [facility]:[id number] C: 04/15/09 14:22 CONFIRM #: [id number] documented in this encounter Plan of Treatment Not on filedocumented as of this encounter Visit Diagnoses Not on filedocumented in this encounter Care Teams Travel Registered Nurse Nicu Relationship Specialty Start Date End Date Laci Hall MD PCP - General 12/20/10 12/23/10 [address] [place] [address] documented as of this encounter
--- OUTSIDE RECORDS SUMMARY | 2022-06-21 11:36 | XMS_ITS | Encounter Summary ---
:1970 Author Organization [employer] Address [address], [place] [address] Care Team Providers Name Role Phone Laci Hall MD Primary Care Provider Encounter Details Date Type Department Care Team Description 07/14/2010 Office Visit [facility] [place] [address] [employer] [address] [place] [id number] (Wo rk) Social History Tobacco Use Types [...] 0234 Note Time: 07/14/10 0001 Status: Signed Outside Sales Inspector: Brenda Copeland MD (Physician) CLINIC NOTE: July [...] written. Hayden will begin at shots at [place] but potentially change to a clinic closer [...] filedocumented in this encounter Care Teams Certified Scrub Tech Relationship Specialty Start Date End Date Laci Hall MD PCP - General 12/20/10 12/23/10 [address] [place] [address] documented as of this encounter
--- OUTSIDE RECORDS SUMMARY | 2022-06-21 11:36 | XMS_ITS | Encounter Summary ---
:1970 Author Organization [email or web address] Address [address], [place] [address] Care Team Providers Name Role Phone Laci Hall MD Primary Care Provider Encounter Details Date Type Department Care Team Description 06/13/2009 Nursing Visit [facility] Alexander Damico MD [facility] [address] [place] [address] [place] [address] [place] [address] [phone] Social History Tobacco Use Types Packs/Day Years Used Date Smoking Tobacco: Never Assessed Sex Assigned at Date Recorded Not on file documented as of this encounter Plan of Treatment Not on filedocumented as of this encounter Visit Diagnoses Not on filedocumented in this encounter Care Teams Monkey Keeper Relationship Specialty Start Date End Date Laci Hall MD PCP - General 12/20/10 12/23/[address] [place] [address] documented as of this encounter
--- OUTSIDE RECORDS SUMMARY | 2022-06-21 11:36 | XMS_ITS | Encounter Summary ---
:1970 Author Organization [facility] Address [address], [place] [address] Care Team Providers Name Role Phone Laci Hall MD Primary Care Provider Encounter Details Date Type Department Care Team Description 07/08/2010 Office Visit [facility] [place] [address] [place] [address] Social History Tobacco Use Types [...] signed by Karyna Maurer MD at 07/19/10 5274 Author: Karyna Maurer MD Service: (none) Author Type: Physician Filed: 01/10/11 0225 Note Time: 07/08/10 0001 Status: Signed Marine Specialist: Karyna Maurer MD (Physician) NAME: HAYDEN AMARO MR#: [id number] ACCT: [id number] VISIT: [id number] DICTATING CLINICIAN: Karyna Maurer MD CONFIRM #: [id number] LOC: 520 CLINIC PROGRESS NOTE DATE OF [...] bleeds, the fact that he is on terminal supervisor use of steroid nasal spray makes it [...] primary MD recommended. FK:MEDQ C: CONFIRM #: [id number] documented in this encounter Plan of Treatment [...] on filedocumented in this encounter Care Teams [employer] Scout Relationship Specialty Start Date End Date Laci Hall MD PCP - General 12/20/10 12/23/10 [address] [place] [address] documented as of this encounter
--- OUTSIDE RECORDS SUMMARY | 2022-06-21 11:36 | XMS_ITS | Encounter Summary ---
:1970 Author Organization [facility] Address [address] [address] Care Team Providers Name Role Phone Laci Hall MD Primary Care Provider Encounter Details Date Type Department Care Team Description 04/02/2010 PN Conversion Only HOME COORDINATOR 38[address] CON[address] Rick Limon MD [address] [facility] [address] [place] [address] (Wo rk) Social History Tobacco Use [...] POST VASECTOMY CHECK (04/02/2010 11:44 AM CDT) [facility] gist Method Time Signature Where [...] on filedocumented in this encounter Care Teams Nuclear Reactor Engineer Relationship Specialty Start Date End Date Laci Hall MD PCP - General 12/20/10 12/23/[address] [place] [address] documented as of this encounter
--- OUTSIDE RECORDS SUMMARY | 2022-06-21 11:36 | XMS_ITS | Encounter Summary ---
:1970 Author Organization [facility] Address [address] [address] Care Team Providers Name Role Phone Laci Hall MD Primary Care Provider Encounter Details Date Type Department Care Team Description 07/09/2008 Office Visit [facility] [place] [address] [place] [address] [place], [place] [address] (Wo rk) Social History Tobacco Use Types [...] signed by Laci Hall MD at 07/09/08 8184 Author: Laci Hall MD Service: (none) Author Type: Physician Filed: 01/09/11 0755 Note Time: 07/09/08 0001 Status: Signed Auto Bench Mechanic: Laci Hall MD (Physician) NAME: HAYDEN AMARO MR#: [id number] ACCT: [id number] VISIT: [id number] DICTATING CLINICIAN: Laci Hall MD CONFIRM #: [id number] LOC: 502 CLINIC PROGRESS NOTE DATE OF [...] that and will follow up as needed. [id number] C: 07/09/08 15:47 CONFIRM #: [id number] documented in this encounter Plan of Treatment Not on filedocumented as of this encounter Visit Diagnoses Not on filedocumented in this encounter Care Teams Lumber Trimmer Relationship Specialty Start Date End Date Laci Hall MD PCP - General 12/20/10 12/23/10 [address] [address] [place] [address] documented as of this encounter
--- OUTSIDE RECORDS SUMMARY | 2022-06-21 11:36 | XMS_ITS | Encounter Summary ---
:1970 Author Organization [facility] Address [address] [address] Care Team Providers Name Role Phone Laci Hall MD Primary Care Provider Encounter Details Date Type Department Care Team Description 10/04/2008 Office Visit [place] [address] Ear, Sera Larsen MD Nose, and Throat [address] [place] [address] [phone] Social History Tobacco Use Types Packs/Day Years Used Date Smoking Tobacco: Never Assessed Sex Assigned at Date Recorded Not on file documented as of this encounter Progress Notes Sera Larsen MD - 10/04/2008 12:01 AM CST Progress Notes signed by Sera Larsen MD at 10/04/081954 Author: Sera Larsen MD Service: (none) Author Type: Physician Filed: 01/09/11 1004 Note Time: 10/04/082010 Status: Signed Plant Equipment Engineer: Sera Larsen MD (Physician) NAME: HAYDEN AMARO MR#: [id number] ACCT: [id number] VISIT: [id number] DICTATING CLINICIAN: SERA LARSEN MD CONFIRM #: [id number] LOC: 428 CLINIC PROGRESS NOTE DATE OF [...] first surgery. These were all performed in [place]. His last operation was 4 years ago. Over the intervening time he has had progressive facial pain, nasal obstruction alqvu-wcwidoe-ghoq-left, foul and discolored mucus drainage, poor sense [...] the opposite side. He will contact my safe deposit attendant if he would like to proceed. Medications were not changed today. CC: ALLEGRA COPELAND MD MCAlvin:[id number] C: 10/04/08 16:20 CONFIRM #: [id number] TER CIVIL (CAD) documented in this encounter Plan of Treatment Not on filedocumented as of this encounter Visit Diagnoses Not on filedocumented in this encounter Care Teams Hawk Missile System Crewmember Relationship Specialty Start Date End Date Laci Hall MD PCP - General 12/20/10 12/23/10 [address] [address] [place] [address] documented as of this encounter
--- OUTSIDE RECORDS SUMMARY | 2022-06-21 11:36 | XMS_ITS | Encounter Summary ---
:1970 Author Organization [facility] Address [address] [address] Care Team Providers Name Role Phone Laci Hall MD Primary Care Provider Encounter Details Date Type Department Care Team Description 01/08/2010 PN Conversion Only PRODUCTION CORRUGATOR 3800 CONV Rick Limon MD 3800 [facility] [address] [place] [address] (Wo rk) Social History Tobacco Use [...] Post Vasectomy Motility (01/08/2010 8:15 AM CDT) [facility] Method Time Signature Post Vasectomy see below No normal HP CONVERSION Motility range Comment: No motile sperm seen. Specimen (Source) Anatomical Collection Method Collection Time Re ceived Time Location / / Volume Laterality 01/08/2010 8:15 AM CDT Rick Limon MD LAB_1 Performing Organization Address City/State/ZIP Code Phon e Number HP CONVERSION POST VASECTOMY CHECK (01/08/2010 8:15 AM CDT) [facility] gist Method Time Signature Where [...] Rick Limon MD LAB_1 Performing Organization Address City/State/[facility] Code Phon e Number HP CONVERSION documented in this encounter Visit Diagnoses Not on filedocumented in this encounter Care Teams Network Program Manager Relationship Specialty Start Date End Date Laci Hall MD PCP - General 12/20/10 12/23/10 [address] [place] [address] documented as of this encounter
--- OUTSIDE RECORDS SUMMARY | 2022-06-21 11:36 | XMS_ITS | Encounter Summary ---
:1970 Author Organization [facility] Address [address] [address] Care Team Providers Name Role Phone Laci Hall MD Primary Care Provider Encounter Details Date Type Department Care Team Description 08/03/2010 PN Conversion Only [facility] 3800 Mic Copeland MD Allergy 3800 [facility] [address] [facility] [place] [address] [phone] Social History Tobacco Use Types Packs/Day Years Used Date Smoking Tobacco: Never Assessed Sex Assigned at Date Recorded Not on file documented as of this encounter Plan of Treatment Not on filedocumented as of this encounter Visit Diagnoses Not on filedocumented in this encounter Care Teams Psychiatry Instructor Relationship Specialty Start Date End Date Laci Hall MD PCP - General 12/20/10 12/23/10 [address] [place] [place] [address] documented as of this encounter
--- OUTSIDE RECORDS SUMMARY | 2022-06-21 11:36 | XMS_ITS | Encounter Summary ---
:1970 Author Organization [facility] Address [address], [place] [address] Care Team Providers Name Role Phone Raulito Saez Yemi LUNDBERG CNP Primary Care Provider [phone] Reason for Visit Reason Comments Other Encounter Details Date Type Department Care Team Description 04/22/2009 Telephone [facility] 3900 Andre Narayanan RN Other [address] [place], [place] [address] Social History Tobacco Use Types Packs/Day Years Used Date Smoking Tobacco: Never Assessed Sex Assigned at Date Recorded Not on file documented as of this encounter Progress Notes Andre Boucher RN - 04/22/2009 9:54 AM CDT Phone Note filed by Andre Boucher RN at 01/08/11832 Author: Andre Boucher RN Service: (none) Author Type: (none) Filed: 01/08/11832 Note Time: 04/22/09953 Status: Signed Tube Filler: Karina De Leon (Physician) pt calling stating he has a marble sized, tubular shaped lump behind the left testicle, positive for pain, denies swelling or redness. denies fever. vas on 7-30. should he come in to see you today in [place]? [phone] Created on 22Apr2009 9:54am by ANDRE BOUCHER [...] skin. Acknowledged by ANDRE BOUCHER on 10:14am SHING TECHNICIAN documented in this encounter Plan of Treatment Not on filedocumented as of this encounter Visit Diagnoses Not on filedocumented in this encounter Care Teams Crotch Piece Baster Relationship Specialty Start Date End Date Raulito Saez, SEARCH DIRECTOR, BLOW TORCH OPERATOR PCP - General 12/24/10 09/25/18 documented as of this encounter
--- OUTSIDE RECORDS SUMMARY | 2022-06-21 11:36 | XMS_ITS | Encounter Summary ---
:1970 Author Organization [employer] Address [address] [address] Care Team Providers Name Role Phone Laci Hall MD Primary Care Provider Encounter Details Date Type Department Care Team Description 09/22/2010 Nursing Visit [facility] [place] [address] [place] [address] (Wo rk) Social History Tobacco Use Types Packs/Day Years Used Date Smoking Tobacco: Never Assessed Sex Assigned at Date Recorded Not on file documented as of this encounter Last Filed Vital Signs Vital Sign Reading Time Taken Comments Blood Pressure 116/78 09/22/2010 8:54 AM BOOKBINDER APPRENTICE Pulse - - Temperature - - Respiratory Rate - - Oxygen Saturation - - Inhaled Oxygen Concentration - - Weight 98.4 kg (216 lb 15.6 oz) 09/22/2010 8:54 AM C: 9 8.4kg BOOKBINDER APPRENTICE Height 184.2 cm (6' 0.5) 09/22/2010 8:54 AM C: 184.2cm BOOKBINDER APPRENTICE Body Mass Index 29.02 09/22/2010 8:54 AM BOOKBINDER APPRENTICE documented in this encounter Plan of Treatment Not on filedocumented as of this encounter Visit Diagnoses Not on filedocumented in this encounter Care Teams Soap Boiler Relationship Specialty Start Date End Date Laci Hall MD PCP - General 12/20/10 12/23/10 [address] [place] [address] documented as of this encounter
--- OUTSIDE RECORDS SUMMARY | 2022-06-21 11:36 | XMS_ITS | Encounter Summary ---
:1970 Author Organization [facility] Address [address], [place] [address] Care Team Providers Name Role Phone Raulito Saez Yemi LUNDBERG CNP Primary Care Provider [phone] Reason for Visit Reason Comments Other Encounter Details Date Type Department Care Team Description 08/19/2008 Telephone [facility] [address] [place], Message Other [address] [place], [place] [address] Social History Tobacco Use Types Packs/Day Years Used Date Smoking Tobacco: Never Assessed Sex Assigned at Date Recorded Not on file documented as of this encounter Progress Notes Center, Message - 08/19/2008 12:29 PM CST Phone Note filed by Tunii at 01/07/11 2290 Author: Tunii Service: (none) Author Type: (none) Filed: 01/07/11 1138 Note Time: 08/19/08 1229 Status: Signed Yarn Hauler: Tunii Prescription Refill Please provide enough refills to last until patient's next visit. Comment:- lv 07/11/07 fv 09/03/08 Pharmacy Seq #:- [phone] [phone] or City:- [place] Clinician Name:Marion sheth Drug Name/Strength:- advair disku 500/50 Sig: Dose/Route/Freq:- inhale 1 dose twice daily Quantity & Last Fill:-#60 06/13/08 Created on [id number] 12:29pm by EMILY TUBBS TRACER documented in this encounter Plan of Treatment Not on filedocumented as of this encounter Visit Diagnoses Not on filedocumented in this encounter Care Teams Investment Director Relationship Specialty Start Date End Date Raulito Saez, TOBACCO CURER, CONTRIBUTION SOLICITOR PCP - General 12/24/10 09/25/18 documented as of this encounter
--- OUTSIDE RECORDS SUMMARY | 2022-06-21 11:36 | XMS_ITS | Encounter Summary ---
:1970 Author Organization [facility] Address [address] [address] Care Team Providers Name Role Phone Laci Hall MD Primary Care Provider Encounter Details Date Type Department Care Team Description 11/21/2009 PN Conversion Only PAPER FOLDER 3800 CONV Rick Limon MD 3800 [facility] [address] [place] [address] (Wo rk) Social History Tobacco Use Types Packs/Day Years Used Date Smoking Tobacco: Never Assessed Sex Assigned at Date Recorded Not on file documented as of this encounter Plan of Treatment Not on filedocumented as of this encounter Procedures Procedure Name Priority Date/Time Associated Diagnosis Comme nts POST VASECTOMY Routine 11/21/2009 9:00 AM Results for this CHECK REACTOR FUELING SUPERVISOR procedure are i n the results section. POST VASECTOMY Routine 11/21/2009 9:00 AM Results for this MOTILITY REACTOR FUELING SUPERVISOR procedure are i n the results section. documented in this encounter Results Post Vasectomy Motility (11/21/2009 9:00 AM REACTOR FUELING SUPERVISOR) [facility] gist Method Time Signature Post Vasectomy see below sperm/slid HP CONVERSION Motility Comment: No motile sperm seen. Specimen (Source) Anatomical Collection Method Collection Time Re ceived Time Location / / Volume Laterality 11/21/2009 9:00 AM REACTOR FUELING SUPERVISOR Rick Limon MD LAB_1 Performing Organization Address City/State/ZIP Code Phon e Number HP CONVERSION POST VASECTOMY CHECK (11/21/2009 9:00 AM REACTOR FUELING SUPERVISOR) [facility] gist Method Time Signature Where Collected Off [...] / / Volume Laterality 11/21/2009 9:00 AM REACTOR FUELING SUPERVISOR Rick Limon MD LAB_1 Performing Organization Address City/State/ZIP Code Phon e Number HP CONVERSION documented in this encounter Visit Diagnoses Not on filedocumented in this encounter Care Teams Photography And Prints Curator Relationship Specialty Start Date End Date Laci Hall MD PCP - General 12/20/10 12/23/10 [address] [place] [address] documented as of this encounter
--- OUTSIDE RECORDS SUMMARY | 2022-06-21 11:36 | XMS_ITS | Encounter Summary ---
:1970 Author Organization [employer] Address [address], [place] [address] Care Team Providers Name Role Phone Laci Hall MD Primary Care Provider Encounter Details Date Type Department Care Team Description 05/29/2008 Office Visit [facility] [place] [address] [address] [place], [place] [id number] Social History Tobacco Use Types Packs/Day Years [...] 0654 Note Time: 05/29/08 0001 Status: Signed Director China: Sree Dallas MD (Physician) NAME: HAYDEN AMARO MR#: [id number] ACCT: [id number] VISIT: [id number] DICTATING CLINICIAN: Sree Dallas MD CONFIRM #: [id number] LOC: 520 CLINIC PROGRESS NOTE DATE OF [...] URI exacerbation of asthma. Prednisone prescription written. [id number] C: 05/29/08 16:08 CONFIRM #: [id number] documented in this encounter Plan of Treatment Not on filedocumented as of this encounter Visit Diagnoses Not on filedocumented in this encounter Care Teams Oscillograph Technician Relationship Specialty Start Date End Date Laci Hall MD PCP - General 12/20/10 12/23/10 [address] [place] [address] documented as of this encounter
--- OUTSIDE RECORDS SUMMARY | 2022-06-21 11:36 | XMS_ITS | Encounter Summary ---
:1970 Author Organization [facility] Address [address] [address] Care Team Providers Name Role Phone Laci Hall MD Primary Care Provider Encounter Details Date Type Department Care Team Description 10/17/2009 PN Conversion Only MECHANICAL SERVICE TECHNICIAN 3800 CONV Rick Limon MD 3800 [facility] [address] [place] [address] (Wo rk) Social History Tobacco Use Types Packs/Day Years Used Date Smoking Tobacco: Never Assessed Sex Assigned at Date Recorded Not on file documented as of this encounter Plan of Treatment Not on filedocumented as of this encounter Procedures Procedure Name Priority Date/Time Associated Diagnosis Comme nts POST VASECTOMY Routine 10/17/2009 8:50 AM Results for this CHECK SASH INSTALLER procedure are i n the results section. documented in this encounter Results POST VASECTOMY CHECK (10/17/2009 8:50 AM SASH INSTALLER) [facility] Method Time Signature Time collected- 850 Hours [...] / / Volume Laterality 10/17/2009 8:50 AM SASH INSTALLER Rick Limon MD LAB_1 Performing Organization Address City/State/ZIP Code Phon e Number HP CONVERSION documented in this encounter Visit Diagnoses Not on filedocumented in this encounter Care Teams Invoicing Machine Operator Relationship Specialty Start Date End Date Laci Hall MD PCP - General 12/20/10 12/23/[address] [place] [address] documented as of this encounter
--- OUTSIDE RECORDS SUMMARY | 2022-06-21 11:36 | XMS_ITS | Encounter Summary ---
:1970 Author Organization [facility] Address [address], [place] [address] Care Team Providers Name Role Phone Raulito Saez TOÑO, LOCUM TENENS HOSPITALIST Primary Care Provider [phone] Reason for Visit Reason Comments Other Encounter Details Date Type Department Care Team Description 10/17/2008 Telephone [facility] 3800 Ear, Rebeca on, Other Nose, and Throat Ryan Garber RN [address] [place] [address] [facility] [place] [address] Social History Tobacco Use Types Packs/Day Years Used Date Smoking Tobacco: Never Assessed Sex Assigned at Date Recorded Not on file documented as of this encounter Progress Notes Ryan Maria RN - 10/17/2008 10:56 AM CST Phone Note filed by Ryan Maria RN at 01/07/11 3148 Author: Ryan Maria RN Service: (none) Author Type: (none) Filed: 01/07/11 5302 Note Time: 10/17/08 1056 Status: Signed Vice Chair: Karina Conversion Pt calling to request an antibiotic for current sinus infection. Pt was in last week. Discussed possible surgery. ADR's: Levofloxacin, Prednisone. Please advise. [facility] in [place]. [phone]. Created on 17Oct2008 10:56am by RYAN WAKEFIELD On 17Oct2008 12:20pm SERA LARSEN wrote: biaxin 500 bid 14 days, 1 refill if needed. Acknowledged by SERA LARSEN on 12:20pm On 17Oct2008 1:35pm RYAN WAKEFIELD wrote: Script faxed as ordered to pt pharmacy. Pt called and updated. Acknowledged by RYAN WAKEFIELD on 1:35pm IERS BUSSERS FOOD RUNNERS documented in this encounter Plan of Treatment Not on filedocumented as of this encounter Visit Diagnoses Not on filedocumented in this encounter Care Teams Certified Orthotic Fitter Relationship Specialty Start Date End Date Raulito Saez, BLINDSTITCH LAPEL PADDER, LOCUM TENENS HOSPITALIST PCP - General 12/24/10 09/25/18 documented as of this encounter
--- OUTSIDE RECORDS SUMMARY | 2022-06-21 11:37 | XMS_ITS | Encounter Summary ---
:1970 Author Organization [employer] Address [address] [address] Care Team Providers Name Role Phone Laci Hall MD Primary Care Provider Encounter Details Date Type Department Care Team Description 09/15/[address] [facility] [place] [address] [facility] [address] [place], [place] [address] [address] [place] [phone] [address] Social History Tobacco Use Types Packs/Day Years Used Date Smoking Tobacco: Never Assessed Sex Assigned at Date Recorded Not on file documented as of this encounter Plan of Treatment Not on filedocumented as of this encounter Visit Diagnoses Not on filedocumented in this encounter Care Teams Slip Cover Maker Relationship Specialty Start Date End Date Laci Hall MD PCP - General 12/20/10 12/23/10 [address] [place] RODRIGUEZ [id number] documented as of this encounter
--- OUTSIDE RECORDS SUMMARY | 2022-06-21 11:37 | XMS_ITS | Encounter Summary ---
:1970 Author Organization [facility] Address [address], [place] [address] Care Team Providers Name Role Phone Raulito Saez TOÑO, DEVICE SALES CONSULTANT Primary Care Provider [phone] Reason for Visit Reason Comments Other Encounter Details Date Type Department Care Team Description 08/01/2007 Telephone [facility] 3800 A [facility], Message Other [address] [employer] [place] [facility] [place] [address] Social History Tobacco Use Types Packs/Day Years Used Date Smoking Tobacco: Never Assessed Sex Assigned at Date Recorded Not on file documented as of this encounter Progress Notes Brenda Copeland MD - 08/01/2007 1:27 PM CST Phone Note filed by Brenda Copeland MD at 01/06/11819 Author: Brenda Copeland MD Service: (none) Author Type: Physician Filed: 01/06/11819 Note Time: 08/01/071326 Status: Signed Electric Tape Slitter: Brenda Copeland MD (Physician) Reviewed records from [place]. PFT remain stable. Missing were skin tests [...] obtained. Acknowledged by NAZANIN PRUITT on 4:22pm TED CIRCUIT BOARDS INSPECTOR documented in this encounter Plan of Treatment Not on filedocumented as of this encounter Visit Diagnoses Not on filedocumented in this encounter Care Teams Graduate Assistant Relationship Specialty Start Date End Date Raulito Saez APRN, DEVICE SALES CONSULTANT PCP - General 12/24/10 09/25/18 documented as of this encounter
--- OUTSIDE RECORDS SUMMARY | 2022-06-21 11:37 | XMS_ITS | Encounter Summary ---
:1970 Author Organization [facility] Address [address] [address] Care Team Providers Name Role Phone Laci Hall MD Primary Care Provider Encounter Details Date Type Department Care Team Description 12/19/2006 Office [place] [facility] [place] [address] [facility] [address] [address] [facility] [place] [address] [place] [address] [phone] (Wo rk) Social History Tobacco Use Types [...] signed by Lotus Rodriguez DO at 12/22/06 5057 Author: Lotus Rodriguez DO Service: (none) Author Type: Physician Filed: 01/08/11 1829 Note Time: 12/19/062010 Status: Signed Spooler Operator Automatic: Lotus Rodriguez DO (Physician) NAME: HAYDEN AMARO MR#: [id number] ACCT: [id number] VISIT: [id number] DICTATING CLINICIAN: LOTUS RODRIGUEZ DO JOB: [id number] LOC: 520 CLINIC PROGRESS NOTE DATE OF [...] with sprays daily each nostril. 3. Recommended bgrj-tro-emedpxg Prilosec starting immediately. Recommended that he not start prednisone until tomorrow morning. 4. Follow up with primary care physician in 2 or 3 days if not doing much better, or call them sooner, or return to our clinic if he worsens or develops new symptoms. [id number] C: 12/20/06 18:39 DOCUMENT: [id number] documented in this encounter Plan of Treatment Not on filedocumented as of this encounter Visit Diagnoses Not on filedocumented in this encounter Care Teams Candy Mixer Relationship Specialty Start Date End Date Laci Hall MD PCP - General 12/20/10 12/23/10 [address] [place] RODRIG[place] [address] documented as of this encounter
--- OUTSIDE RECORDS SUMMARY | 2022-06-21 11:37 | XMS_ITS | Encounter Summary ---
:1970 Author Organization [employer] Address [address], [place] [address] Care Team Providers Name Role Phone Laci Hall MD Primary Care Provider Encounter Details Date Type Department Care Team Description 06/15/2007 Office Visit [facility] [place] [address] [place] [address] [place], [place] [address] (Wo rk) Social History Tobacco Use Types [...] 2159 Note Time: 06/15/07 0001 Status: Signed Guest Relation Officer: Laci Hall MD (Physician) Male Preventive Exam [...] on filedocumented in this encounter Care Teams Technical Support Engineer Relationship Specialty Start Date End Date Laci Hall MD PCP - General 12/20/10 12/23/10 [address] [address] [place] [address] documented as of this encounter
--- OUTSIDE RECORDS SUMMARY | 2022-06-21 11:37 | XMS_ITS | Encounter Summary ---
:1970 Author Organization [facility] Address [address], [place] [address] Care Team Providers Name Role Phone Raulito Saez Yemi LUNDBERG CNP Primary Care Provider [phone] Reason for Visit Reason Comments Other Encounter Details Date Type Department Care Team Description 01/02/2008 Telephone [facility] john Villagran, Maegan Garcia, Other [address] [facility] [place] [address] [place] [phone] [place], [place] [address] (Wo rk) Social History Tobacco Use Types Packs/Day Years Used Date Smoking Tobacco: Never Assessed Sex Assigned at Date Recorded Not on file documented as of this encounter Progress [facility], Message - 01/02/2008 3:56 PM CDT Phone Note filed by [email or web address] at 01/06/11 033 Author: [email or web address] Service: (none) Author Type: (none) Filed: 01/06/111839 Note Time: 01/02/08 1556 Status: Signed Payroll Master: [email or web address] Lab/Radiology Results Caller Name/Relationship:Hayden Primary Button Attaching Machine Operator:Alberto What test result is needed?lab results When and where was test done? 01/01/08/ [facility] Who ordered the test? alberto Belt Knife Feeder:patient Best call back number:[phone] Is it OK to leave a confidential message on this voicemail?yes *[id number] Created on 02Jan2008 3:56pm by JUNE ERNST On 02Jan2008 4:17pm MAEGAN VILLAGRAN wrote: Normal CBC, negative mono. Patient feeling better. Taking Augmentin for sinusitis. Acknowledged by MAEGAN VILLAGRAN on 4:17pm AL CRUELTY INVESTIGATION SUPERVISOR documented in this encounter Plan of Treatment Not on filedocumented as of this encounter Visit Diagnoses Not on filedocumented in this encounter Care Teams Climate Change Risk Assessor Relationship Specialty Start Date End Date Raulito Saez, PATTERN DEVELOPER, TEASELER PCP - General 12/24/10 09/25/18 documented as of this encounter
--- OUTSIDE RECORDS SUMMARY | 2022-06-21 11:37 | XMS_ITS | Encounter Summary ---
:1970 Author Organization [facility] Address [address] [address] Care Team Providers Name Role Phone Laci Hall MD Primary Care Provider Encounter Details Date Type Department Care Team Description 06/15/2007 PN Conversion Only [facility]UTH CONVERSIO N Laci Hall, [address] [facility] [place] [address] [facility] IE [place] [address] (Wo rk) [...] Complete Blood Count-W/Diff (06/15/2007 9:22 AM CDT) [facility] [employer] Method Time Signature White Blood Cell 7.1 [...] - HP CONVERSION Hemoglobin Conc 36.5 gm/dL [place] RDW 12.2 11.0 - HP CONVERSION 15.0 [...] CONVERSION ALT (SGPT) (06/15/2007 9:22 AM CDT) [facility] [employer] Method Time Signature Alanine 48 4 - 55 HP CONVERSION Aminotransferase U/L Specimen (Source) Anatomical Collection Method Collection Time Re ceived Time Location / / Volume Laterality 06/15/2007 9:22 AM CDT Laci Hall MD LAB_1 Performing Organization Address City/State/ZIP Code Phon e Number HP CONVERSION AST (06/15/2007 9:22 AM CDT) [facility] [employer] Method Time Signature Aspartate 32 0 - [...] Laci Hall MD LAB_1 Performing Organization Address City/[facility] Code Phon e Number HP CONVERSION (ABNORMAL) [...] Laci Hall MD LAB_1 Performing Organization Address City/[facility]/ZIP Code Phon e Number HP CONVERSION documented in this encounter Visit Diagnoses Not on filedocumented in this encounter Care Teams Mechanical Maintenance Relationship Specialty Start Date End Date Laci Hall MD PCP - General 12/20/10 12/23/10 [address] [place] [address] documented as of this encounter
--- OUTSIDE RECORDS SUMMARY | 2022-06-21 11:37 | XMS_ITS | Encounter Summary ---
:1970 Author Organization [facility] Address [address] [address] Care Team Providers Name Role Phone Laci Hall MD Primary Care Provider Encounter Details Date Type Department Care Team Description 06/09/2007 Office [place] [facility] [place] [place] [address] [id number] [address] [place] [address] [phone] (Wo rk) Social History Tobacco Use Types [...] 2152 Note Time: 06/09/07 0001 Status: Signed Guitar Maker: Lotus Rodriguez DO (Physician) NAME: HAYDEN AMARO MR#: [id number] ACCT: [id number] VISIT: [id number] DICTATING CLINICIAN: LOTUS RODRIGUEZ DO JOB: [id number] LOC: 3620 CLINIC PROGRESS NOTE DATE OF [...] he worsens or develops new symptoms. RJAna Maria:[id number] C: 06/10/07 11:46 DOCUMENT: [id number] documented in this encounter Plan of Treatment Not on filedocumented as of this encounter Visit Diagnoses Not on filedocumented in this encounter Care Teams Medical Office Supervisor Relationship Specialty Start Date End Date Laci Hall MD PCP - General 12/20/10 12/23/10 [address] [place] [address] documented as of this encounter
--- OUTSIDE RECORDS SUMMARY | 2022-06-21 11:37 | XMS_ITS | Encounter Summary ---
:1970 Author Organization [facility] Address [address] [address] Care Team Providers Name Role Phone Laci Hall MD Primary Care Provider Encounter Details Date Type Department Care Team Description 07/11/2007 PN Conversion Only [place] [address] [address] [place], [place] [address] (Wo rk) Social History Tobacco Use Types [...] (ABNORMAL) IgE Total (07/11/2007 3:36 PM CDT) [facility] Method Time Signature Immunoglobulin E 4,596 (H) 0 - 180 HP CONVERSION IU/mL Comment: Interpretive data: TEST INFORMATION: Immunoglobulin E To convert to ng/mL, multiply IU/mL by 2 .4. Performed at [facility] [address] [place] [address] 84 8 Specimen (Source) Anatomical Collection Method Collection Time Re ceived Time Location / / Volume Laterality 07/11/2007 3:36 PM CDT Brenda Copeland MD LAB_1 Performing Organization Address City/State/ZIP Code Phon e Number HP CONVERSION documented in this encounter Visit Diagnoses Not on filedocumented in this encounter Care Teams Shear Grinder Operator Helper Relationship Specialty Start Date End Date Laci Hall MD PCP - General 12/20/10 12/23/[address] [place] [address] documented as of this encounter
--- OUTSIDE RECORDS SUMMARY | 2022-06-21 11:37 | XMS_ITS | Encounter Summary ---
:1970 Author Organization [facility] Address [address], [place] [address] Care Team Providers Name Role Phone Laci Hall MD Primary Care Provider Encounter Details Date Type Department Care Team Description 04/12/2008 Office Visit [facility] [place] [address] [place] [address] [place], [place] [address] (Wo rk) Social History Tobacco Use Types [...] signed by Laci Hall MD at 04/21/08 4480 Author: Laci Hall MD Service: (none) Author Type: Physician Filed: 01/09/11 0550 Note Time: 04/12/08 0001 Status: Signed Counterintelligence Agent: Laci Hall MD (Physician) NAME: HAYDEN AMARO MR#: [id number] ACCT: [id number] VISIT: [id number] DICTATING CLINICIAN: Laci Hall MD CONFIRM #: [id number] LOC: 502 CLINIC PROGRESS NOTE DATE OF [...] is always come back. He has tried qcrc-ezr-gnmfczi hydrocortisone without any success in the past. [...] going to have him use his mild bkcd-pwl-yqkjyjy hydrocortisone. If that is not improving I [...] as needed if he is not improving. DJS:[id number] C: 04/13/08 13:51 CONFIRM #: [id number] documented in this encounter Plan of Treatment Not on filedocumented as of this encounter Visit Diagnoses Not on filedocumented in this encounter Care Teams Mold Burner Relationship Specialty Start Date End Date Laci Hall MD PCP - General 12/20/10 12/23/10 [address] [place] [address] documented as of this encounter
--- OUTSIDE RECORDS SUMMARY | 2022-06-21 11:37 | XMS_ITS | Encounter Summary ---
:1970 Author Organization [employer] Address [address] [address] Care Team Providers Name Role Phone Laci Hall MD Primary Care Provider Encounter Details Date Type Department Care Team Description 11/18/2007 PN Conversion Only [place] [address] [facility] [address] [place] [address] [place] [address] Social History Tobacco Use Types Packs/Day Years Used Date Smoking Tobacco: Never Assessed Sex Assigned at Date Recorded Not on file documented as of this encounter Plan of Treatment Not on filedocumented as of this encounter Procedures Procedure Name Priority Date/Time Associated Diagnosis Comme nts INFLUENZA A AND B Routine 11/18/2007 11:57 AM Res ults for this ANTIGEN CHEMICAL COMPOUNDER HELPER procedure are i n the results section. documented in this encounter Results (ABNORMAL) Influenza A and B Antigen (11/18/2007 11:57 AM CHEMICAL COMPOUNDER HELPER) [facility] Method Time Signature Influenza A & SEE TEXT HP CONVERSION B Ag (A) Comment: Patient: HAYDEN AMARO Influenza A,B (Swab, In House) ?Collected: ??[id number] ??1157 Source: NASOPHAR ?Processed: ??[id number] ??1157 ? 1V Final Report ------ ?[id number] ??1218 Positive for the presence of influenza A antigen. Specimen (Source) Anatomical Collection Method Collection Time Re ceived Time Location / / Volume Laterality 11/18/2007 11:57 AM CHEMICAL COMPOUNDER HELPER Sree Dallas MD LAB_1 Performing Organization Address City/State/ZIP Code Phon e Number HP CONVERSION documented in this encounter Visit Diagnoses Not on filedocumented in this encounter Care Teams Dyehouse Worker Relationship Specialty Start Date End Date Laci Hall MD PCP - General 12/20/10 12/23/10 [address] [address] [address] documented as of this encounter
--- OUTSIDE RECORDS SUMMARY | 2022-06-21 11:37 | XMS_ITS | Encounter Summary ---
:1970 Author Organization [employer] Address [address] [address] Care Team Providers Name Role Phone Laci Hall MD Primary Care Provider Encounter Details Date Type Department Care Team Description 11/18/2007 Office Visit [facility] [place] [address] [address] [place], [place] [address] Social History Tobacco Use Types Packs/Day Years Used Date Smoking Tobacco: Never Assessed Sex Assigned at Date Recorded Not on file documented as of this encounter Last Filed Vital Signs Vital Sign Reading Time Taken Comments Blood Pressure 129/76 11/18/2007 9:52 AM GEOSPATIAL SPECIALIST Pulse 89 11/18/2007 9:52 AM GEOSPATIAL SPECIALIST Temperature 37.2 ??C (99 ??F) 11/18/2007 9:52 AM GEOSPATIAL SPECIALIST C: 37.2 C Respiratory Rate 16 11/18/2007 9:52 AM GEOSPATIAL SPECIALIST Oxygen Saturation - - Inhaled Oxygen Concentration - - Weight - - Height - - Body Mass Index - - documented in this encounter Progress Notes Sree Dallas MD - 11/18/2007 12:01 AM CST Progress Notes signed by Sree Dallas MD at 12/13/07 1916 Author: Sree Dallas MD Service: (none) Author Type: Physician Filed: 01/09/11 0121 Note Time: 11/18/07 0001 Status: Signed Supervisor Machining: Sree Dallas MD (Physician) NAME: HAYDEN AMARO MR#: [id number] ACCT: [id number] VISIT: [id number] DICTATING CLINICIAN: Sree Dallas MD JOB: [id number] LOC: 520 CLINIC PROGRESS NOTE DATE OF [...] with asthma medications. IMPRESSION: Asthma, influenza A. DRL:[id number] C: 11/20/07 19:31 DOCUMENT: [id number] documented in this encounter Plan of Treatment Not on filedocumented as of this encounter Visit Diagnoses Not on filedocumented in this encounter Care Teams Associate Store Manager Relationship Specialty Start Date End Date Laci Hall MD PCP - General 12/20/10 12/23/10 [address] [place] [address] documented as of this encounter
--- OUTSIDE RECORDS SUMMARY | 2022-06-21 11:37 | XMS_ITS | Encounter Summary ---
:1970 Author Organization [employer] Address [address], [place] [address] Care Team Providers Name Role Phone Laci Hall MD Primary Care Provider Encounter Details Date Type Department Care Team Description 01/01/2008 Office Visit [facility] Yasmine Gupta, [address] [facility] [place], [place] [address] [facility] [phone] [place], [place] [address] (Wo rk) Social History [...] 0318 Note Time: 01/01/08 0001 Status: Signed Special Forces Warrant Officer: Yasmine Zuñiga MD (Physician) NAME: HAYDEN AMARO MR#: [id number] ACCT: [id number] VISIT: [id number] DICTATING CLINICIAN: Yasmine Zuñiga MD JOB: [id number] LOC: 502 CLINIC PROGRESS NOTE DATE OF [...] and mono spot today. PLAN: See Assessment. [facility]:[id number] C: 01/01/08 19:43 DOCUMENT: [id number] documented in this encounter Plan of Treatment Not on filedocumented as of this encounter Visit Diagnoses Not on filedocumented in this encounter Care Teams It Engineer Relationship Specialty Start Date End Date Laci Hall MD PCP - General 12/20/10 12/23/10 [address] [place] [address] documented as of this encounter
--- OUTSIDE RECORDS SUMMARY | 2022-06-21 11:37 | XMS_ITS | Encounter Summary ---
:1970 Author Organization [facility] Address [address], [place] [address] Care Team Providers Name Role Phone Laci Hall MD Primary Care Provider Encounter Details Date Type Department Care Team Description 09/20/[address] [facility] [address] Mic Copeland MD Allergy 38[address] [facility] [address] [facility] [place] [address] [phone] Social History Tobacco Use Types Packs/Day Years Used Date Smoking Tobacco: Never Assessed Sex Assigned at Date Recorded Not on file documented as of this encounter Plan of Treatment Not on filedocumented as of this encounter Visit Diagnoses Not on filedocumented in this encounter Care Teams Dough Raiser Relationship Specialty Start Date End Date Laci Hall MD PCP - General 12/20/10 12/23/10 [address] [place] [address] documented as of this encounter
--- OUTSIDE RECORDS SUMMARY | 2022-06-21 11:37 | XMS_ITS | Encounter Summary ---
:1970 Author Organization [employer] Address [address], [place] [address] Care Team Providers Name Role Phone Laci Hall MD Primary Care Provider Encounter Details Date Type Department Care Team Description 07/11/2007 Office Visit [facility] [place] [address] [employer] [facility] [employer] [address] [place] [phone] (Wo rk) Social History Tobacco Use Types [...] 2232 Note Time: 07/11/07 0001 Status: Signed Account Development Associate: Brenda Copeland MD (Physician) NAME: HAYDEN MAARO MR#: [id number] ACCT: [id number] VISIT: [id number] DICTATING CLINICIAN: BRENDA COPELAND MD JOB: [id number] LOC: 514 CLINIC PROGRESS NOTE DATE OF VISIT: 07/11/2007 SUBJECTIVE: : 1970. Hayden is a 36-year-old white male last seen . He has a history of severe asthma complicated by reflux disease, nasal polyposis, and allergic rhinitis. He has been living in [place] and recently returned to the [facility]. While living in [place], he underwent four different surgeries for nasal [...] Negative for allergy. Hayden lives in a qlrw-bhvn-abd home, forced air heat, central air conditioning, carpeted bedroom, hypoallergenic pillow encased with allergy cover. There is a Lab/Husky mix in the house for eight years and recent addition of a Labradoodle. 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 Brief smoking [...] given today. 4. Obtain old records from [place]. 5. Total IgE, call with results when available. 6. Return to clinic six months or p.r.n. [facility]:[id number] C: 07/12/07 11:51 DOCUMENT: [id number] ROENTEROLOGIST documented in this encounter Plan of Treatment Not on filedocumented as of this encounter Visit Diagnoses Not on filedocumented in this encounter Care Teams Mainframe Analyst Relationship Specialty Start Date End Date Laci Hall MD PCP - General 12/20/10 12/23/10 [address] [place] [address] documented as of this encounter
--- OUTSIDE RECORDS SUMMARY | 2022-06-21 11:37 | XMS_ITS | Encounter Summary ---
:1970 Author Organization [employer] Address [address] [address] Care Team Providers Name Role Phone Raulito Saez TOÑO, VEGETABLE HARVEST MACHINE OPERATOR Primary Care Provider [phone] Reason for Visit Reason Comments Other Encounter Details Date Type Department Care Team Description 11/18/2007 Telephone [place] [phone] Internal Gael Ramsey RN Other Medicine [address] [facility] [place] [address] Social History Tobacco Use Types Packs/Day Years Used Date Smoking Tobacco: Never Assessed Sex Assigned at Date Recorded Not on file documented as of this encounter Progress Notes Pal Ramsey RN - 11/18/2007 9:24 PM CST Phone Note filed by Pal Ramsey RN at 01/06/11 4567 Author: Pal Ramsey RN Service: (none) Author Type: (none) Filed: 01/06/111 Note Time: 11/18/072123 Status: Signed Home Stereo Equipment Installer: Karina De Leon CLINICIAN FOLLOW-UP: Contacted conduit reamer operator clinician: Called conduit reamer operator Dr.Yue Mitchell. She advised 800mg of Ibuprofen q6h. May alternate with Tylenol 1000mg not to exceed 400mg / Day. Nurse call back advised patient as per conduit reamer operator. IMPRESSION: Fever. SYMPTOMS: Patient calling due to [...] If home management not helpful. PLAN: CONTACT EQUITY DIRECTOR CLINICIAN Patient/Caller agrees with plan and denies additional questions. Call Complete. *SH~PNNERY~SCHOLAR ~ Created on 18Nov2007 9:24pm by PAL RAMSEY ANICAL MAINTENANCE ENGINEER documented in this encounter Plan of Treatment Not on filedocumented as of this encounter Visit Diagnoses Not on filedocumented in this encounter Care Teams Director Of Field Sales Relationship Specialty Start Date End Date Raulito Saez, HYDRO EXCAVATION OPERATOR, VEGETABLE HARVEST MACHINE OPERATOR PCP - General 12/24/10 09/25/18 documented as of this encounter
--- OUTSIDE RECORDS SUMMARY | 2022-06-21 11:37 | XMS_ITS | Encounter Summary ---
:1970 Author Organization [employer] Address [address] [address] Care Team Providers Name Role Phone Laci Hall MD Primary Care Provider Encounter Details Date Type Department Care Team Description 12/24/[address] [facility] [address] [address] [place], [place] [address] Social History Tobacco Use Types Packs/Day Years [...] by Sree Dallas MD at 01/01/082035 Author: Sree Dallas MD Service: (none) Author Type: Physician Filed: 01/09/11 9416 Note Time: 12/24/07 0001 Status: Signed Pharmaceutical Officer: Sree aDllas MD (Physician) NAME: HAYDEN AMARO MR#: [id number] ACCT: [id number] VISIT: [id number] DICTATING CLINICIAN: Sree Dallas MD JOB: [id number] LOC: 520 CLINIC PROGRESS NOTE DATE OF [...] Follow up in 5 to 7 days. DRL:[id number] C: 12/25/07 11:04 DOCUMENT: [id number] documented in this encounter Plan of Treatment [...] ??No other fractures or bone ab normalities. [facility]/ [address] Dictating ANGELA KUO RADIOLOGIST Procedure Note Angela Wells - 11/18/2016Formattin g of this note might be different from the original. There is an undisplaced fracture at the radial base of the distal phalanx. No other fractures or bone abno rmalities. [facility]/ [address] Dictating ANGELA KUO RADIOLOGIST Sree Dallas MD RAD GD documented in this encounter Visit Diagnoses Not on filedocumented in this encounter Care Teams Mechanic Assistant Relationship Specialty Start Date End Date Laci Hall MD PCP - General 12/20/10 12/23/10 [address] [place] [address] documented as of this encounter
--- OUTSIDE RECORDS SUMMARY | 2022-06-21 11:37 | XMS_ITS | Encounter Summary ---
:1970 Author Organization [facility] Address [address], [place] [address] Care Team Providers Name Role Phone Laci Hall MD Primary Care Provider Encounter Details Date Type Department Care Team Description 08/11/2007 PN Conversion Only [facility] 38[address] Mic Copeland MD Allergy [address] [facility] [address] [facility] [place] [address] [phone] Social History Tobacco Use Types Packs/Day Years Used Date Smoking Tobacco: Never Assessed Sex Assigned at Date Recorded Not on file documented as of this encounter Plan of Treatment Not on filedocumented as of this encounter Visit Diagnoses Not on filedocumented in this encounter Care Teams Work Measurement Engineer Relationship Specialty Start Date End Date Laci Hall MD PCP - General 12/20/10 12/23/10 [address] [place] [address] documented as of this encounter
--- OUTSIDE RECORDS SUMMARY | 2022-06-21 11:37 | XMS_ITS | Encounter Summary ---
:1970 Author Organization [facility] [employer] Address [address], [place] [address] Care Team Providers Name Role Phone Laci Hall MD Primary Care Provider Encounter Details Date Type Department Care Team Description 02/24/2008 PN Conversion Only [facility] 3800 Mic Copeland MD Allergy 3800 [facility] [address] [facility] [place] [address] [phone] Social History Tobacco Use Types Packs/Day Years Used Date Smoking Tobacco: Never Assessed Sex Assigned at Date Recorded Not on file documented as of this encounter Plan of Treatment Not on filedocumented as of this encounter Visit Diagnoses Not on filedocumented in this encounter Care Teams Regulatory Affairs Intern Relationship Specialty Start Date End Date Laci Hall MD PCP - General 12/20/10 12/23/10 [address] [place] [address] documented as of this encounter
--- OUTSIDE RECORDS SUMMARY | 2022-06-21 11:37 | XMS_ITS | Encounter Summary ---
:1970 Author Organization [facility] Address [address], [place] [address] Care Team Providers Name Role Phone Raulito Saez CHITO LUNDBERG Primary Care Provider [phone] Reason for Visit Reason Comments Other Encounter Details Date Type Department Care Team Description 07/13/2007 Telephone [facility] [address] A Brenda Guaman MD Other [address] [facility] [address] [place] [address] [place], [place] [address] (Wo rk) Social History Tobacco Use Types [...] 01/06/11701 Note Time: 07/13/07 1223 Status: Signed Color Room Attendant: Brenda Orta MD (Physician) IgE 4596 IU which may be higher than Xolair dosing. WIll await records [facility] prior to making formal decison regarding IT or Xolair. Created on 13Jul2007 12:23pm by BRENDA ORTA On 18Jul2007 12:25pm BRENDA ORTA wrote: Records not yet recieved. Acknowledged by BRENDA ORTA on 12:25pm RIOR SURFACE INSULATION WORKER documented in this encounter Plan of Treatment Not on filedocumented as of this encounter Visit Diagnoses Not on filedocumented in this encounter Care Teams Computational Physicist Relationship Specialty Start Date End Date Raulito Saez APRN, SOCIAL MEDIA JOB TITLES PCP - General 12/24/10 09/25/18 documented as of this encounter
--- OUTSIDE RECORDS SUMMARY | 2022-06-21 11:38 | XMS_ITS | Encounter Summary ---
:1970 Author Organization [facility] Address [address] [address] Care Team Providers Name Role Phone Laci Hall MD Primary Care Provider Encounter Details Date Type Department Care Team Description 09/01/2006 PN Conversion Only [place] [facility] [address] [address] [place] [address] Social History Tobacco Use Types Packs/Day Years Used Date Smoking Tobacco: Never Assessed Sex Assigned at Date Recorded Not on file documented as of this encounter Plan of Treatment Not on filedocumented as of this encounter Visit Diagnoses Not on filedocumented in this encounter Care Teams Hunter Trapper Relationship Specialty Start Date End Date Laci Hall MD PCP - General 12/20/10 12/23/[address] [place] [address] documented as of this encounter
--- OUTSIDE RECORDS SUMMARY | 2022-06-21 11:38 | XMS_ITS | Encounter Summary ---
:1970 Author [facility] Address [address], [place] [address] Care Team Providers Name Role Phone Laci Hall MD Primary Care Provider Encounter Details Date Type Department Care Team Description 04/01/1999 PN Conversion Only [place] [address] [address] [address] [phone] [place] [address] (Wo rk) Social History Tobacco [...] 1057 Note Time: 02/12/99 0001 Status: Signed Juvenile Corrections Officer: Fredrick Brown MD (Physician) IMPRESSION: Bronchitis. SUBJECTIVE: See upper respiratory infection shingle. OBJECTIVE: N/A ASSESSMENT: Bronchitis. PLAN: Zithromax. JHK:[id number] C: DOCUMENT: [id number] NG SUPPORT WORKER Sree Knott - 01/24/1999 12:01 AM CDT Progress Notes signed by Sree Knott MD at 01/27/99 1637 Author: Sree Knott MD Service: (none) Author Type: Physician Filed: 01/06/11 1036 Note Time: 01/24/99 0001 Status: Signed Juvenile Corrections Officer: Sree Knott MD (Physician) IMPRESSION: Gastroenteritis. SUBJECTIVE: [...] He will be using Imodium as needed. DJA:[id number] C: DOCUMENT: [id number] Brenda Copeland MD - 01/13/1999 12:01 AM CDT Progress Notes signed by Brenda Copeland MD at 01/19/99 1004 Author: Brenda Copeland MD Service: (none) Author Type: Physician Filed: 01/06/11 1025 Note Time: 01/13/99 0001 Status: Signed Juvenile Corrections Officer: Brenda Copeland MD (Physician) IMPRESSION: Asthma, allergic [...] Return to clinic 6 months or p.r.n. [facility]:[id number] C: DOCUMENT: [id number] Chacha Florian MD - 01/07/1999 12:01 AM CDT Progress Notes signed by Chacha Florian MD at 11/26/99 1122 Author: Chacha Florian MD Service: (none) Author Type: Physician Filed: 01/06/11 1018 Note Time: 01/07/99 0001 Status: Signed Juvenile Corrections Officer: Chacha Florian MD (Physician) IMPRESSION: Allergic rhinitis, [...] 1 applicator b.i.d. per rectum. May use [place] nasal spray to help moisturize the nose. [...] PTT was normal at 28.1 seconds. stw NG SUPPORT WORKER Orion Berg MD - 11/18/1998 12:01 AM CST Progress Notes signed by Orion Berg MD at 07/24/02 8282 Author: Orion Berg MD Service: (none) Author Type: Physician Filed: 01/06/11 0923 Note Time: 11/18/982227 Status: Signed Juvenile Corrections Officer: Orion Berg MD (Physician) IMPRESSION: No dictation required. SUBJECTIVE: N/A OBJECTIVE: N/A ASSESSMENT: N/A PLAN: N/A grb NG SUPPORT WORKER Laci Rodriguez - 10/21/1998 12:01 AM CST Progress Notes signed by at 04/17/99 1015 Author: Laci Rodriguez MD Service: (none) Author Type: (none) Filed: 01/06/11 0850 Note Time: 10/21/98 0001 Status: Signed Juvenile Corrections Officer: Imr Conversion IMPRESSION: Gastroesophageal reflux with secondary exacerbation of asthma symptoms. SUBJECTIVE: Hayden presents today for preoperative physical exam. Please see history and physical in chart. OBJECTIVE: N/A ASSESSMENT: N/A PLAN: Max redo. Patient low risk for surgery. Patient plans to go to surgery on 10/20/[address] Brien Berg. [id number] NG SUPPORT WORKER Orion Berg MD - 10/14/1998 12:01 AM CST Progress Notes signed by Orion Berg MD at 02/21/99 1042 Author: Orion Berg MD Service: (none) Author Type: Physician Filed: 01/06/11 0842 Note Time: 10/14/98 0001 Status: Signed Juvenile Corrections Officer: Orion Berg MD (Physician) IMPRESSION: Recurrent GERD. SUBJECTIVE: Hayden Mckay is a 28-year-old male who presents today for evaluation for possible redo laparoscopic Emy fundoplication. He has had a previous history of reflux and was evaluated and underwent surgery in [place]. His past history is outlined in Dr. Dale's notes. I have reviewed all his notes from the [facility] in [place]. He does have his operative report present. In January of 1998, he underwent a laparoscopic Emy fundoplication, 360-degree wrap over a 60 [place] bougie. After the first month, he had [...] 20 min) cc: Griffin Dale M.D., Gastroenterology, [employer] Orion Berg M.D. ([facility]) grb Brenda Copeland MD - 10/14/1998 12:01 AM CST Progress Notes signed by Brenda Copeland MD at 10/30/98 1719 Author: Brenda Copeland MD Service: (none) Author Type: Physician Filed: 01/06/11 0842 Note Time: 10/14/98 0001 Status: Signed Juvenile Corrections Officer: Brenda Copeland MD (Physician) IMPRESSION: Asthma. Severe [...] clinic in six months or p.r.n. stq NG SUPPORT WORKER Griffin Dale MD - 09/30/1998 12:01 AM CST Progress Notes signed by Griffin Dale MD at 10/09/98 1437 Author: Griffin Dale MD Service: (none) Author Type: Physician Filed: 01/06/11 0826 Note Time: 09/30/98 0001 Status: Signed Juvenile Corrections Officer: Griffin Dale MD (Physician) IMPRESSION: Gastroesophageal reflux disease. Asthma. SUBJECTIVE: Mr. Mckay is a 28-year-old gentleman seen for reflux symptoms. He has had GERD for the last two years with previous evaluation in [place]. He underwent endoscopy in May of 1997 [...] laparoscopic Emy fundoplication wrapped over a 60 [place] bougie. After the first month he had [...] to re-wrapping. cc: Brien Berg MD lat NG SUPPORT WORKER Conversion, [facility] - 09/17/1998 12:01 AM CST Progress Notes signed by at 04/25/012034 Author: [facility] Conversion Service: (none) Author Type: (none) Filed: 01/06/11 0813 Note Time: 09/17/98 0001 Status: Signed Juvenile Corrections Officer: Imr Conversion IMPRESSION: Abdominal pain, right upper [...] He has a follow-up appointment with his padded products finisher on September 30, Dr. Melendez, who had [...] because of his asthma. 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 emre SCHEDULED RESOURCE: TAM DYSON MD NG SUPPORT WORKER Brenda Copeland MD - 08/22/1998 12:01 AM CST Progress Notes signed by Brenda Copeland MD at 09/05/98 0933 Author: Brenda Copeland MD Service: (none) Author Type: Physician Filed: 01/06/11 0747 Note Time: 08/22/98 0001 Status: Signed Juvenile Corrections Officer: Brenda Copeland MD (Physician) IMPRESSION: Asthma. Gastroesophageal [...] Follow up there months or p.r.n. plh NG SUPPORT WORKER Brenda Copeland MD - 06/27/1998 12:01 AM CDT Progress Notes signed by Brenda Copeland MD at 07/10/98 1455 Author: Brenda Copeland MD Service: (none) Author Type: Physician Filed: 01/06/11 0652 Note Time: 06/27/982227 Status: Signed Juvenile Corrections Officer: Brenda Copeland MD (Physician) IMPRESSION: Acute asthma [...] 0608 Note Time: 05/13/98 0001 Status: Signed Juvenile Corrections Officer: Karina Conversion IMPRESSION: No dictation required. Please see shingle in chart. Sinusitis, asthma exacerbation. SUBJECTIVE: Hayden presents today for complaints of worsening shortness of breath, stuffy nose, pain and symptoms of sinus. OBJECTIVE: N/A ASSESSMENT: Sinusitis, asthma exacerbation. PLAN: N/A mkz NG SUPPORT WORKER Conversion, [facility] - 05/09/1998 12:01 AM CDT Progress Notes signed by at 04/25/012024 Author: Karina Conversion Service: (none) Author Type: (none) Filed: 01/06/11 0605 Note Time: 05/09/98 0001 Status: Signed Juvenile Corrections Officer: [facility] Conversion IMPRESSION: Allergic rhinitis. Asthma. SUBJECTIVE: This 27-year-old [place] unga has lived in [place] for the last 16 years and has returned to [place] for the past 5 weeks. Is requesting [...] PAST HEALTH: Excellent, nonsmoker. ENVIRONMENT: Works at [employer] [place] and not affected by his job. Just [...] months. dmf SCHEDULED RESOURCE: KWAME CHINO MD NG SUPPORT WORKER Conversion, [facility] - 04/29/1998 12:01 AM CDT Progress Notes signed by at 04/25/012024 Author: [facility] Conversion Service: (none) Author Type: (none) Filed: 01/06/11 0555 Note Time: 04/29/98 0001 Status: Signed Juvenile Corrections Officer: Karina Conversion IMPRESSION: Bronchospasm. Shortness of breath. Asthmaticus. SUBJECTIVE: A 27-year-old male coming in complaining of approximately 1-1/2 weeks ago started to have shortness of breath with decreased peak flows and now has had increased use of his inhaler. He states that he has a long-standing history of asthma. The patient recently moved here from [place], [place], where he was watched for chronic [...] patient does have an appointment with an manager in training on May 10 at this clinic. He is to follow up as needed, sooner if symptoms get worse. emre SCHEDULED RESOURCE: [facility] MD NG SUPPORT WORKER documented in this encounter Plan of [...] 8:00 AM Resu lts for this (STANDARD) MINING SUPPORT WORKER procedure are i n the results section. XR CHEST PA WITH Routine 04/29/1998 12:09 Results for this LATERAL PM CDT procedure are i n the results section. documented in this encounter Results Stool Culture (01/24/1999 3:30 PM CDT) Analysis Performed At Patho logist Time Signature Stool Culture SEE TEXT HP CONVERSION Comment: Patient: HAYDEN MCKAY E Culture, Stool @ ?Collected: ??[id number] ??[id number] Source: Stool ? Processed: ??[id number] ??[id number] ? 1V Final Report ------ ?[id number] ??[id number] No Salmonella, Shigella, Campylobacter o r E coli 0157 isolated. Aeromonas, Plesiomonas, and Vi brio may be missed. If patient has a history of fore ign travel, eating raw shellfish or other contact wi th contaminated water, another culture should be submitt ed with these organisms specifically requested. @ = STOOL CULTURE Performed at ??[address] [place] ?[address] Specimen (Source) Anatomical Collection Method Collection Time [...] valves in the aortic position , acute VA, valvular heart disease and atrial fibril lation. Mechanical prosthetic valves, (high risk ). ? INR 2.5-3.5 Prevention of recurrent myocardial infar ct. These recommended ranges serve as guidel poppy. Adjustment outside these ranges may be clinically indicated. Specimen (Source) Anatomical Collection Method Collection Time Re ceived Time Location / / Volume Laterality 01/07/1999 1:47 PM CDT Chacha Florian MD LAB_1 Performing Organization Address [facility] Phon e Number HP CONVERSION Complete Blood [...] - HP CONVERSION Hemoglobin Conc 36.5 gm/dL [place] RDW 11.5 11.0 - HP CONVERSION 15.0 % Platelet Count 274 140 - 450 HP CONVERSION k/cmm Specimen (Source) Anatomical Collection Method Collection Time Re ceived Time Location / / Volume Laterality 01/07/1999 1:47 PM CDT Chacha Florian MD LAB_1 Performing Organization Address City/[facility] Phon e Number HP CONVERSION (ABNORMAL) Differential [...] Florian MD LAB_1 Performing Organization Address City/State/ZIP [facility] Phon e Number HP CONVERSION APTT (Activated Partial Thromboplastin Time) (01/07/1999 1:47 PM CDT) [facility] gist Method Time Signature Partial 28.1 22.0 - HP CONVERSION Thromboplastin Time 35.0 sec Comment: Please note new reference range s for PT and PTT. Specimen (Source) Anatomical Collection Method Collection Time Re ceived Time Location / / Volume Laterality 01/07/1999 1:47 PM CDT Chacha Florian MD LAB_1 Performing Organization Address City/[facility] Phon e Number HP CONVERSION [place] Stomach WO KUB (Standard) (10/17/1998 8:00 AM MINING SUPPORT WORKER) Anatomical Region Laterality Modality Abdomen Other Specimen (Source) Anatomical Location Collection Method / Collectio n Time Received Time / Laterality Volume Impressions 10/17/1998 8:00 AM MINING SUPPORT WORKER : ?HISTORY OF EMY FUNDOPLICATION, HOWEVER, GE [...] TRANS-ID: ? CRB Narrative 10/17/1998 8:00 AM MINING SUPPORT WORKER CLINICAL DATA: ?GI/R/O REFLUX Procedure Note Wally [...] IZE IS NORMAL. TECH-ID : 25 TRANS-ID: [facility] Imr Conversion RAD GD documented in this encounter Visit Diagnoses Not on filedocumented in this encounter Care Teams Sales Representative Door To Door Relationship Specialty Start Date End Date Laci Hall MD PCP - General 12/20/10 12/23/10 [address] [address] [place] [address]RIGUEZ [id number] documented as of this encounter
--- OUTSIDE RECORDS SUMMARY | 2022-06-21 11:38 | XMS_ITS | Encounter Summary ---
:1970 Author Organization [facility] Address [address], [place] [address] Care Team Providers Name Role Phone Unavailable Primary Care Provider Unavailable Encounter Details Date Type Department Care Team Description 09/08/1998 - Hospital Encounter [facility] [address] Delcid MD [address] [place] [address] 09/09/1998 Endoscopy Griffin Dale MD [address] [place] [address] [address] [place] [address] Social History Tobacco Use Types Packs/Day Years Used Date Smoking Tobacco: Never Assessed Sex Assigned at Date Recorded Not on file documented as of this encounter Plan of Treatment Not on filedocumented as of this encounter Visit Diagnoses Not on filedocumented in this encounter
--- OUTSIDE RECORDS SUMMARY | 2022-06-21 11:38 | XMS_ITS | Encounter Summary ---
:1970 Author Organization [email or web address] Address [address], [place] [address] Care Team Providers Name Role Phone Unavailable Primary Care Provider Unavailable Encounter Details Date Type Department Care Team Description 11/05/1998 - Hospital Encounter [facility] Orion Haque MD [address] [place] [address] 11/10/1998 [facility]On[facility]- Orion Haque MD [address] [place], [place] [id number] [facility] [address] [place] [address] Social History Tobacco Use Types Packs/Day [...] 0913 Note Time: 11/10/98 0000 Status: Signed Quality Tester: Orion Haque MD (Physician) [id number] XXX DISCHARGE SUMMARY ADMITTING DIAGNOSIS: 1. RECURRENT [...] in 10-14 days. CONDITION ON DISCHARGE: DISPOSITION: ORINO HAQUE MD TAJ:[id number] C: DOCUMENT: [id number] END OF RECORD: [employer]ISOR FILLING [employer] PACKING documented in this encounter Procedure Notes Orion Haque MD - 11/10/1998 12:01 AM CST OR Surgeon signed by [employer] at 08/26/99 1200 Author: Orion Haque MD Service: (none) Author Type: Physician Filed: 01/06/11 0913 Note Time: 11/10/98 0000 Status: Signed Quality Tester: Orion Haque MD (Physician) [id number] XXX OPERATIVE REPORT DATE OF OPERATION: 11/05/1998 SURGEON: ORION HAQUE MD LIBRARY CIRCULATION TECHNICIAN: NIGHAT HERNANDEZ MD PREOPERATIVE DIAGNOSIS: Recurrent gastroesophageal [...] a 360 degree wrap over a 60 [place] bougie. Just a couple of short gastric [...] of the midline was closed with a [id number] Vicryl. The skin was closed with 4-0 [...] were correct x2. COMPLICATIONS: ORION HAQUE MD TAJ:[id number] C: DOCUMENT: [id number] END OF RECORD: [employer]IS[employer] FILLING [employer] PACKING documented in this encounter Miscellaneous Notes Miscellaneous [...] AM Res ults for this INTERFACE ORDER SUPERVISOR FILLING AND PACKING procedure ar e in the results section. CONVERSION DEFAULT Routine 11/06/1998 7:15 AM Res ults for this INTERFACE ORDER SUPERVISOR FILLING AND PACKING procedure ar e in the results section. CONVERSION DEFAULT Routine 11/06/1998 7:15 AM Res ults for this INTERFACE ORDER SUPERVISOR FILLING AND PACKING procedure ar e in the results section. documented in this encounter Results Conversion Default Interface Order (11/07/1998 4:14 AM SUPERVISOR FILLING AND PACKING) Patholo gist Method Time Signature Color Yellow HP CONVERSION Turbidity Clear HP CONVERSION U Specific 1.020 1.001 1.-035 HP CONVERSION [place] pH Urine 6.5 4.5 7.5 HP CONVERSION [...] / / Volume Laterality 11/07/1998 4:14 AM SUPERVISOR FILLING AND PACKING Lab Conversion LAB_1 Performing Organization Address City/State/ZIP Code Phon e Number HP CONVERSION Conversion Default Interface Order (11/06/1998 7:15 AM SUPERVISOR FILLING AND PACKING) P athologist Signature Hemoglobin 14.0 13.4 HP CONVERSION 17.-5gm/d L Specimen (Source) Anatomical Collection Method Collection Time Re ceived Time Location / / Volume Laterality 11/06/1998 7:15 AM SUPERVISOR FILLING AND PACKING Orion Haque MD LAB_1 Performing Organization Address City/State/ZIP Code Phon e Number HP CONVERSION Conversion Default Interface Order (11/06/1998 7:15 AM SUPERVISOR FILLING AND PACKING) athologist Signature Potassium 4.2 3.5 5.2mmol HP CONVERSION /L Specimen (Source) Anatomical Collection Method Collection Time Re ceived Time Location / / Volume Laterality 11/06/1998 7:15 AM SUPERVISOR FILLING AND PACKING Orion Haque MD LAB_1 Performing Organization Address City/[facility] Phon e Number HP CONVERSION documented in this encounter Visit Diagnoses Not on filedocumented in this encounter
--- NOTE | 2022-06-21 13:21 | W.ANESCHARGE ---
Anesthesia Charges Start Date/Time Anesthesia Start Date: 06/21/22 Anesthesia Start Time: 12:32 Stop Date/Time Anesthesia Stop Date: 06/21/22 Anesthesia Stop Time: 13:15 Summary Emergency: No
--- NOTE | 2022-06-21 13:46 | W.ANESCHARGE ---
Anesthesia Charges Start Date/Time Anesthesia Start Date: 06/21/22 Anesthesia Start Time: 12:32 Stop Date/Time Anesthesia Stop Date: 06/21/22 Anesthesia Stop Time: 13:15 Summary Emergency: No
== END 2022-06-21 11:30 | disposition home or self-care (01) ==
LOC: OP CLINIC 11:30
PROVIDERS: PCP Family Medicine; Visit Provider Surgery
DX: Z12.11 Encounter for screening for malignant neoplasm of colon (principal); K63.5 Polyp of colon; K64.4 Residual hemorrhoidal skin tags; Z98.0 Intestinal bypass and anastomosis status
CPT/HCPCS: 00811; 45385; 88305; J2405; J2704

== ENCOUNTER 2022-12-17 07:58 | Outpatient (CLI) | payer OTHER, SELFPAY | END 2022-12-17 07:59 | disposition home or self-care (01) | LOC: NFLDREF 12:08 | PROVIDERS: PCP Family Medicine; Referring Provider Family Medicine; Visit Provider Family Medicine | DX: E78.5 Hyperlipidemia, unspecified (principal); I10 Essential (primary) hypertension; L65.9 Nonscarring hair loss, unspecified; Z12.5 Encounter for screening for malignant neoplasm of prostate | CPT/HCPCS: 80053; 80061; 84153; 84443 ==

== ENCOUNTER 2023-04-01 07:40 | Outpatient (CLI) | payer OTHER, SELFPAY ==
--- NOTE | 2023-04-01 08:00 | CRLHL7_ITS ---
For Patients: As a result of the Century Cures Act, medical imaging exams and procedure reports are released immediately into your electronic medical record. You may view this report before your referring provider. If you have questions, please contact your health care provider. Indication: DISORDER OF NOSE. CHECKING FOR POLYPS Technique: Performed without IV contrast Comparison: 02/28/2019 Findings: Frontal sinuses: There is mild mucosal thickening within the inferior frontal sinuses bilaterally. Mucous retention cyst noted within the inferior left frontal sinus measuring 7 millimeters. Additional mucous retention cyst within the lateral aspect of the right frontal sinus measuring 1.2 cm. Ethmoid sinuses: Near complete opacification of the right ethmoid sinus. Moderately severe opacification of the left ethmoid sinus. Maxillary sinuses: Moderately severe opacification of the right maxillary sinus. Mild mucosal thickening within the left maxillary sinus. The left nasal antral window is patent. There is mild residual patency of the right-sided nasal antral window. Sphenoid sinuses: Mild mucosal thickening is present within both sphenoid sinuses with partial obstruction of the sphenoethmoidal recesses. Nasal Cavity: Postoperative changes are present. Right hilar cell opacification is noted. Soft tissue attenuation within the right side of the nasal cavity adjacent to the right middle turbinate. No TMJ abnormalities identified. The visualized portions of the orbits, intracranial contents and upper soft tissue neck are grossly negative. Impression: 1. Bilateral sinus disease particularly within the right ethmoid sinus and right maxillary sinus. 2. Possible recurrent nasal polyps on the right. Please note that all CT scans at this facility use dose modulation, iterative reconstruction, and/or weight-based dosing when appropriate to reduce radiation dose to as low as reasonably achievable. Dictated by Jayjay Greene MD @ 04/01/2023 11:06:28 AM (Electronically Signed)
== END 2023-04-01 07:41 | disposition home or self-care (01) ==
PROVIDERS: PCP Family Medicine; Visit Provider Family Medicine
DX: J34.89 Other specified disorders of nose and nasal sinuses (principal); J33.8 Other polyp of sinus; J32.0 Chronic maxillary sinusitis
CPT/HCPCS: 70486

== ENCOUNTER 2023-12-17 14:09 | Emergency (ER) | payer OTHER, SELFPAY ==
[2023-12-17 14:13] VITALS: BP 171/95; PULSE 61; RESP 18; TEMP 36.2; O2SAT 99; BMI 29.8
--- NOTE | 2023-12-17 14:59 | CT_ITS ---
Patient: WENDY AMARO Facility:?[facility] Patient ID:?[id number] Site Patient ID:?[id number]. Site :?1970 Study:?CT-Head w/o-12/17/2023 3:14:59 PM Ordering Physician:?Roseline Perdomo Final Report: CLINICAL HISTORY: Headache. TECHNIQUE: Standard helical CT image acquisition through the head was performed. COMPARISON: None available. FINDINGS: No CT evidence of acute intracranial hemorrhage, extra-axial collection, mass effect or midline shift. Reeves-white matter differentiation is preserved. The ventricles are normal in size and morphology. The calvarium is unremarkable. The orbits are unremarkable. Postsurgical changes related to prior functional endoscopic sinonasal surgery. Complete opacification of the right frontal sinus and its drainage pathway, partial opacification of the left frontal sinus drainage pathway, complete opacification of the residual bilateral ethmoid air cells, and moderate circumferential mucosal thickening of the right maxillary sinus. Note is made of central hyperattenuating component within the bilateral ethmoid air cells which may reflect fungal colonization versus inspissated secretions. The mastoid air cells are well aerated. IMPRESSION: 1. No CT evidence of acute intracranial abnormality. 2. Prior functional endoscopic sinonasal surgery with paranasal sinus disease, as above, including findings suggestive of fungal colonization versus inspissated secretions. Please note that all CT scans at this facility use dose modulation, iterative reconstruction, and/or weight-based dosing when appropriate to reduce radiation dose to as low as reasonably achievable. Dictated by Richard Villalobos MD @ 12/17/2023 3:33:33 PM Signed by:?Richard Villalobos MD @12/17/2023 3:33:33 PM (Electronic Signature)
--- NOTE | 2023-12-17 15:17 | ED.HA ---
HPI - Headache General Time Seen by Provider: 15:18 Date Seen: 12/17/23 Chief Complaint: Headache/Migraine Stated Complaint: headache Time Seen by Provider: 12/17/23 14:10 Source: patient, RN notes reviewed and old records reviewed Mode of arrival: ambulatory Limitations: no limitations History of Present Illness HPI Narrative: This 53-year-old male was referred from urgent care for onset of right-sided temporal headaches today. They were described as sharp per the report of the provider, patient is on day for of 7 of Augmentin for diagnosed sinusitis. He is had a long-term history of sinusitis and sinus polyps. He has finally been prior authorize for Dupixent from Dr. Rucker his ENT and his asthma specialist. He is not started it. He is known to have recurrent nasal polyps. He last has a note from February of 2023 from ENT, given that he had failed steroid treatment and nasal steroids, recommended Dupixent. He had multiple prior surgeries for polyp removal, there is an area of concern for thinning of the cribriform plate. Patient had a CT scan from April 01 of this summer showing polyps the middle meatus, left small and large right. He also had hwang sinusitis in the ethmoid and maxillary sinuses. Patient reports he has no fevers through this illness. He does notes he gets headaches. 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 He did a telehealth visit for sinusitis, had some right facial pressure and swelling around the eye a that was concerning for sinusitis for him. The swelling has improved on the antibiotics. There has been no fevers through this. He has no visual changes, no changes in his hearing. No otalgia. He states since starting the antibiotic the drainage from his nose has lessened and is no longer green when blowing. He developed this right-sided temporal headache today, did take ibuprofen around 11:00 a.m. which helped. It has dull the pain but he still feels it. Again there is no visual changes with this, no jaw claudication, no difficulty chewing or eating. He did go to Urgent Care, they did call and speak with me. I did agree that he should probably have further evaluation and we should consider head CT in this gentleman. He thus came to the ER for further evaluation. He does have underlying hypertension, was concerned about potential for brain bleed or aneurysm. Of note, patient had GI bleed when on steroids and Levaquin together. MD elicited complaint: headache Related Data Home Medications Medication Instructions Recorded Confirmed fluticasone 250 mcg-salmeterol 50 1 inh inhalation QDAY 06/18/22 12/17/23 mcg/dose blistr powdr for inhalation (Advair Diskus) budesonide 0.5 mg/2 mL suspension 0.5 mg irrigation .PRN 05/26/23 12/17/23 for nebulization budesonide 32 mcg/actuation nasal 2 spray intranasal QDAY 05/26/23 12/17/23 spray fluticasone propionate 50 2 spray intranasal QDAY 05/26/23 09/27/23 mcg/actuation nasal spray,suspension (Flonase Allergy Relief) amoxicillin 875 mg-potassium 1 tab PO Q12H 12/17/23 12/17/23 clavulanate 125 mg tablet Previous Rx's Medication Instructions Recorded albuterol sulfate 90 mcg/actuation 2 puff inhalation Q4-6H PRN 12/28/22 aerosol inhaler shortness of breath or wheezing #8.5 grams amlodipine 5 mg tablet 5 mg PO QDAY #90 tabs 12/28/22 lisinopril 20 mg tablet 20 mg PO QDAY #90 tabs 12/28/22 lisdexamfetamine 20 mg capsule 20 mg PO QAM #30 caps 11/07/23 (Vyvanse) amoxicillin 875 mg-potassium 1 tab PO BID #14 tabs 12/17/23 clavulanate 125 mg tablet prednisone 20 mg tablet 20 mg PO BID #14 tabs 12/17/23 Allergies Allergy/AdvReac Type Severity Reaction Status Date / Time Corticosteroids AdvReac Severe GI Bleed Verified 12/17/23 14:19 (Glucocorticoids) Quinolones AdvReac Severe GI Bleed Verified 12/17/23 14:19 Review of Systems Narrative: As per HPI. [facility] Medical History Polyp of paranasal sinus ?J33.8 - Other polyp of sinus (ICD-10) Sinus pain ?J34.89 - Other specified disorders of nose and nasal sinuses (ICD-10) Perforation of intestine (06/24/12) ?K63.1 - Perforation of intestine (nontraumatic) (ICD-10) Hypotension ?I95.9 - Hypotension, unspecified (ICD-10) Gastrointestinal hemorrhage ?K92.2 - Gastrointestinal hemorrhage, unspecified (ICD-10) Encounter for postoperative care ?Z48.89 - Encounter for other specified surgical aftercare (ICD-10) Diverticulitis of intestine (04/13/12) ?K57.92 - Diverticulitis of intestine, part unspecified, without perforation or abscess without bleeding (ICD-10) Surgical History History of partial colectomy (~2015) ?Z90.49 - Acquired absence of other specified parts of digestive tract (ICD-10) Status post operation on paranasal sinus ?Z98.890 - Other specified postprocedural states (ICD-10) History of Robert fundoplication (1996) ?Z98.890 - Other specified postprocedural states (ICD-10) History of appendectomy (2015) ?Z90.49 - Acquired absence of other specified parts of digestive tract (ICD-10) Social History Smoking Status: Former smoker Do you use any of these nicotine containing products: None Second hand tobacco smoke exposure: No How often do you have a drink containing alcohol: never AUDIT-C Alcohol total score: 0 Non-prescribed substance use: denies use Little interest or pleasure in doing things: several days Feeling down, depressed, or hopeless: not at all Exam Const: Vital Signs, click to edit/add: Vital Signs - 24 hr 12/17/23 14:13 Temperature 97.2 F L Pulse Rate [Pulse Oximeter] 61 Respiratory Rate 18 Blood Pressure [Ri ght Upper Arm] 171/95 H Pulse Oximetry 99 Oxygen Delivery Me thod Room Air Patient is alert, interactive, no apparent distress. He is a 53-year-old male that is ambulatory in the ED of his own accord. Pupils are equal round reactive, sclerae clear, extraocular muscles intact. No specific tenderness when I palpate over his face, certainly none over the right temporal artery area. He has no pain on palpation of his TMJs, can open and close his jaw without difficulty. Face is atraumatic, normal symmetrical facial function. TMs are translucent, no evidence of infection, canals normal with a little cerumen present. Anterior nares show somewhat pinkish boggy mucosa, more swelling on the right versus the left. Oropharynx normal. Neck is supple, no cervical adenopathy, no thyromegaly masses or nodules. No meningeal signs. Lungs are clear, CV regular rate and rhythm, no murmur, normal S1-S2, no S3-S4. No focal neurologic deficits noted. Documenting provider has reviewed patient's vital signs: yes Course Course ED Course: Head CT was ordered on patient's arrival as this head certainly been in expected test to be performed. Patient and I reviewed that based on his history, I do suspect probable sinus disease. We will get baseline labs. We did specifically review such entities as temporal arteritis. Given that he has no visual changes, no pain over the temporal artery, no jaw claudication, will await this sed rate and inflammatory markers. If this is sinus disease, he is going to need a more prolonged course of antibiotics, was only given 7 days from his tele visit. He may need to consider steroids, will talk with him on that further. We will give him 15 mg IV Toradol for this right-sided headache at this time. Reevaluation(s) Time of Reevaluation #1: 15:35 Reevaluation #1: Did show patient a few isolated pictures encompassing his right frontal and maxillary sinusitis. We still need to wait for the radiologist over-read this. Time of Reevaluation #2: 16:02 Reevaluation #2: Did review CT report findings. He does have significant sinus disease. He has subsequently taken prednisone after the GI bleed, he had had a history of Max fundoplication in the think the prednisone actually caught up and did not passed through 1 portion causing irritation bleeding/ulcer as specific site. He has done Augmentin and prednisone without any difficulty. We did discuss that a head CT does not completely rule out intracranial bleeding. We specifically did discuss subarachnoid hemorrhage and sentinel bleeds. We did specifically discuss doing a lumbar puncture to 100% completely rule that out. We of done informed discussion and patient has opted to treat for sinusitis which I personally do clinically support at this time. He does understand he may need re-evaluation if there is further concerns. Vital Signs Vital signs: Initial Vital Signs Temperature 97.2 F L 12/17/23 14:13 Temperature Source Temporal Artery Scan 12/17/23 14:13 Pulse Rate 61 12/17/23 14:13 Respiratory Rate 18 12/17/23 14:13 Blood Pressure 171/95 H 12/17/23 14:13 Blood Pressure Mean 120 H 12/17/23 14:13 Blood Pressure Position Sitting 12/17/23 14:13 Pulse Oximetry 99 12/17/23 14:13 Oxygen Delivery Method Room Air 12/17/23 14:13 Vital Signs Temperature 97.2 F L 12/17/23 14:13 Pulse Rate 61 12/17/23 14:13 Respiratory Rate 18 12/17/23 14:13 Blood Pressure 171/95 H 12/17/23 14:13 Pulse Oximetry 99 12/17/23 14:13 Oxygen Delivery Method Room Air 12/17/23 14:13 Temperature 97.2 F L 12/17/23 14:13 Pulse Rate 61 12/17/23 14:13 Respiratory Rate 18 12/17/23 14:13 Blood Pressure 171/95 H 12/17/23 14:13 Pulse Oximetry 99 12/17/23 14:13 Oxygen Delivery Method Room Air 12/17/23 14:13 Medications Administered Medications: Discontinued Medications Generic Name Dose Route Start Last Admin Trade Name Freq PRN Reason Stop Dose Admin Ketorolac Tromethamine 15 mg 12/17/23 15:30 12/17/23 15:45 Ketorolac 15 Mg/Ml Inj IVP 12/17/23 15:31 15 mg ONCE ONE Administration MDM - Headache Lab Data Attestation: I reviewed the patient's lab results. Lab results narrative: With normal sed rate of 6, makes is very unlikely that this would be temporal arteritis. Labs: Lab Results 12/17/23 Range/Units 15:10 WBC 6.83 (4.50-11.00) K/uL RBC 5.30 (4.30-5.90) m/uL Hgb 15.8 (13.5-17.5) gm/dL Hct 46.5 (37.0-53.0) % MCV 88 (80-100) fL MCH 30 (26-34) pg MCHC 34 (32-36) gm/dL RDW Coeff of Tiarra 12.0 (11.5-15.5) % Plt Count 274 (140-440) K/uL Neut % (Auto) 66.0 (42.0-72.0) % Lymph % (Auto) 22.7 (20-44) % Webb % (Auto) 8.3 (0.0-11.0) % Eos % (Auto) 2.6 (0.0-7.0) % Baso % (Auto) 0.3 (0.0-3.0) % Neut # (Auto) 4.50 (1.7-7.0) K/uL Lymph # (Auto) 1.55 (0.90-2.90) K/uL Webb # (Auto) 0.60 (0.00-0.90) K/UL Eos # (Auto) 0.18 (0.00-0.50) K/uL Baso # (Auto) 0.02 (0.00-0.30) K/uL Abs Immat Gran (auto) 0.01 (0.00-0.30) K/uL Imm/Tot Granulo (auto) 0.1 % Sodium 141 (135-149) mmol/L Potassium 4.2 (3.6-5.1) mmol/L Chloride 104 (96-114) mmol/L Carbon Dioxide 30 (20-32) mmol/L Anion Gap 7 (7-15) mEq/L BUN 17 (7-30) mg/dL Creatinine 0.9 (0.5-1.5) mg/dL Estimated Creat Clear 104.19 Estimated GFR 102 ml/min Glucose 101 (60-115) mg/dL Calcium 9.9 (8.4-10.6) mg/dL Total Bilirubin 1.1 (0.1-1.5) mg/dL AST 32 (12-35) U/L ALT 44 (4-50) U/L Alkaline Phosphatase 65 (40-150) U/L C-Reactive Protein 1.2 H (0.5-1.0) mg/dL Total Protein 8.9 H (6.0-8.3) g/dL Albumin 5.0 (3.3-5.0) g/dL Imaging Data CT scan - head: Attestation: I have reviewed the pertinent imaging results. My impression: I do see evidence of sinus disease, wait radiology over read. Radiologist's impression: Patient: WENDY AMARO Facility:?[facility] [place] Patient ID:?[id number] Site Patient ID:?[id number]. Site :?[id number] Study:?CT Head w/o-12/17/2023 3:14:59 PM Ordering Physician:Vicenta Perdomo Final Report: CLINICAL HISTORY: Headache. TECHNIQUE: Standard helical CT image acquisition through the head was performed. COMPARISON: None available. FINDINGS: No CT evidence of acute intracranial hemorrhage, extra-axial collection, mass effect or midline shift. Reeves-white matter differentiation is preserved. The ventricles are normal in size and morphology. The calvarium is unremarkable. The orbits are unremarkable. Postsurgical changes related to prior functional endoscopic sinonasal surgery. Complete opacification of the right frontal sinus and its drainage pathway, partial opacification of the left frontal sinus drainage pathway, complete opacification of the residual bilateral ethmoid air cells, and moderate circumferential mucosal thickening of the right maxillary sinus. Note is made of central hyperattenuating component within the bilateral ethmoid air cells which may reflect fungal colonization versus inspissated secretions. The mastoid air cells are well aerated. IMPRESSION: 1. No CT evidence of acute intracranial abnormality. 2. Prior functional endoscopic sinonasal surgery with paranasal sinus disease, as above, including findings suggestive of fungal colonization versus inspissated secretions. Please note that all CT scans at this facility use dose modulation, iterative reconstruction, and/or weight-based dosing when appropriate to reduce radiation dose to as low as reasonably achievable. Dictated by Richard Villalobos MD @ 12/17/2023 3:33:33 PM (Electronic Signature) Critical Care Time Critical Care Time Critical Care Time: No Discharge Plan Discharge Clinical Impression: Headache Qualifiers: Headache type: unspecified Headache chronicity pattern: acute headache Intractability: not intractable Qualified Code(s): R51.9 - Headache, unspecified Sinusitis Qualifiers: Sinusitis location: pansinusitis Chronicity: unspecified Qualified Code(s): J32.4 - Chronic pansinusitis Patient Disposition: Home, Self-Care Condition: Stable Instructions: Sinusitis (ED), Acute Headache (ED) Additional Instructions: Need to extend the Augmentin for 2 week course. Start prednisone 20 mg twice a day for 10 days, recommend taking with food, drinking full 8 oz glass of water when you take this medicine and sitting upright for at least 30 minutes after you take it to ensure it has gone through into the stomach. This should help prevent any catching of the prednisone and help prevent any subsequent GI bleed. If you are not improving as far as the headache and sinus symptoms, do recommend follow-up with Dr. Rucker. If you develop fevers, headache is worsening, have further concerns, do recommend re-evaluation in the ED. Activity Level: Activity as Tolerated Prescriptions: New amoxicillin-pot clavulanate 875-125 mg tablet 1 tab PO BID Qty: 14 0RF Rx Instructions: extending to 2 week course for sinusitis prednisone 20 mg tablet 20 mg PO BID Qty: 14 0RF No Action fluticasone propion-salmeterol [Advair Diskus] 250-50 mcg/dose blister with device 1 inh inhalation QDAY Patient Comments: INHALE 1 PUFF BY MOUTH TWICE DAILY. RINSE MOUTH /. GARGLE AFTER USE amlodipine 5 mg tablet 5 mg PO QDAY Qty: 90 3RF lisinopril 20 mg tablet 20 mg PO QDAY Qty: 90 3RF albuterol sulfate 90 mcg/actuation HFA aerosol inhaler 2 puff inhalation Q4-6H PRN (Reason: shortness of breath or wheezing) Qty: 8.5 1RF budesonide 32 mcg/actuation spray,non-aerosol 2 spray intranasal QDAY Rx Instructions: administer into each nostril fluticasone propionate [Flonase Allergy Relief] 50 mcg/actuation spray,suspension 2 spray intranasal QDAY Rx Instructions: administer into each nostril budesonide 0.5 mg/2 mL suspension for nebulization 0.5 mg irrigation .PRN Patient Comments: [NO ORIGINAL SIG] amoxicillin-pot clavulanate 875-125 mg tablet 1 tab PO Q12H Vyvanse 20 mg capsule 20 mg PO QAM Qty: 30 0RF Follow Up/Referrals: Santino Sauceda MD [Primary Care Provider] - Stand Alone Forms: [facility] Info Instructions
[2023-12-17 15:18] LABS: Basophils Absolute Auto 0.02 K/uL (0.00-0.30); Basophils Percent Auto 0.3 % (0.0-3.0); Eosinophils Absolute Auto 0.18 K/uL (0.00-0.50); Eosinophils Percent Auto 2.6 % (0.0-7.0); Hematocrit 46.5 % (37.0-53.0); Hemoglobin* 15.8 gm/dL (13.5-17.5); Immature Granulocytes Abs Auto 0.01 K/uL (0.00-0.30); Immature Granulocytes Pct Auto 0.1 %; Lymphocytes Absolute Auto 1.55 K/uL (0.90-2.90); Lymphocytes Percent Auto 22.7 % (20-44); Mean Corpuscular HGB Conc 34 gm/dL (32-36); Mean Corpuscular Hemoglobin 30 pg (26-34); Mean Corpuscular Volume 88 fL (80-100); Monocytes Percent Auto 8.3 % (0.0-11.0); Platelet Count* 274 K/uL (140-440); White Blood Count* 6.83 K/uL (4.50-11.00)
[2023-12-17 15:24] LABS: Slide Review Reflex No
[2023-12-17 15:32] LABS: Chloride* 104 mmol/L (96-114); Potassium* 4.2 mmol/L (3.6-5.1); Sodium* 141 mmol/L (135-149)
[2023-12-17 15:34] LABS: Bilirubin Total* 1.1 mg/dL (0.1-1.5); Creatinine* 0.9 mg/dL (0.5-1.5); Est. Creatinine Clearance* 104.19; Estimated Glomerular Filt Rate 102 ml/min
[2023-12-17 15:35] LABS: Alanine Aminotransferase* 44 U/L (4-50); Alkaline Phosphatase* 65 U/L (40-150); Anion Gap 7 mEq/L (7-15); Aspartate Amino Transferase* 32 U/L (12-35); Blood Urea Nitrogen* 17 mg/dL (7-30); Carbon Dioxide* 30 mmol/L (20-32); Glucose* 101 mg/dL (60-115); Total Protein* 8.9 g/dL (6.0-8.3)
[2023-12-17 15:36] LABS: Calcium* 9.9 mg/dL (8.4-10.6)
[2023-12-17 15:38] LABS: C Reactive Protein* 1.2 mg/dL (0.5-1.0)
[2023-12-17] MEDS: KETOROLAC 15 MG/ML inj IVP (15:45)
[2023-12-17 16:07] LABS: Erythrocyte SedimentationRate* 6 mm/hr (2-15)
[2023-12-17 16:23] VITALS: BP 149/87; PULSE 64; RESP 12; TEMP 36.2
== END 2023-12-17 16:24 | disposition home or self-care (01) ==
PROVIDERS: Emergency Provider Family Medicine; PCP Family Medicine
DX: J32.9 Chronic sinusitis, unspecified (principal); R51.9 Headache, unspecified
CPT/HCPCS: 36415; 70450; 80053; 85025; 85651; 86140; 96374; 99284; J1885

== ENCOUNTER 2023-12-28 09:12 | Outpatient (CLI) | payer OTHER, SELFPAY ==
--- OUTSIDE RECORDS SUMMARY | 2024-01-17 10:05 | XMS_ITS | Referral Summary ---
Author Name Unknown Organization [facility] Address [address] [place] [id number] Care Team Providers Care Personal Caregiver Name Role Phone Unavailable Primary Care Provider Unavailabl e Source Comments Patient records contain information from all sites at [facility]. For routine questions regarding patient records, call [phone] during business hours, M-F 8:00 AM - 5:00 PM Central Time. Record requests for emergency care only can be directed to [phone] at any time.[facility] Allergies Active Allergy Reactions Criticality Noted Date Comments Corticosteroids (Glucocorticoids) GI bleeding 04/29/2017 Levofloxacin GI intolerance 12/19/2006 PN: LW Reaction: internal bleeding Prednisone GI intolerance 12/19/2006 PN: LW Reaction: internal bleeding Quinolones GI intolerance 04/29/2017 Medications Medication Sig Dispensed Refills Start Date End Date Status albuterol (for_PROVENTIL HFA,VENTOLIN HFA) 90 mcg/actuation inhaler Inhale 2 puffs. 07/05/2017 Active amLODIPine (for_NORVASC) 5 mg tablet Take 5 mg by mouth. 04/29/2017 Activ e fluticasone (for_FLONASE) 50 mcg/actuation nasal spray 2 sprays. 07/05/2017 Active fluticasone-salmeter ol (for_ADVAIR DISKUS) 250-50 mcg/dose diskus inhaler Inhale 1 puff. 07/05/2017 Active lisinopril (for_PRINIVIL,ZESTRI L) 20 mg tablet Take 20 mg by mouth. 05/27/2017 Active lisdexamfetamine (VYVANSE) 20 mg capsule Take 20 mg by mouth every morning. Active chlorthalidone (HYGROTON) 25 mg tablet Take 12.5 mg by mouth daily. Active budesonide (RHINOCORT AQUA) 32 mcg/actuation nasal spray Administer 2 sprays into each nostril daily. Active Active Problems Problem Noted Date Diagnosed Date Asthma NOS 02/19/2016 Social History Tobacco Use Types Packs/Day Years Used Date Smoking Tobacco: Never Smokeless Tobacco: Never Alcohol Use Standard Drinks/Week Comments Yes 0 (1 standard drink = 0.6 oz pure alcohol) 2 or more mixed drinks every evening Nutrition Answer Date Recorded Nutrition: EVOO Fat Source Unknown 11/21 Nutrition: Servings of Fruits/Vegetables per Day Not on file 11/21/2020 Dental Answer Date Recorded Dental: Regular Dentist Unknown 11/22/19 21 Sex and Gender Information Value Date Recorded Sex Assigned at Not on file Gender Identity Not on file Sexual Orientation Not on file Last Filed Vital Signs Vital Sign Reading Time Taken Comments Blood Pressure 131/78 05/13/2023 9:00 PM CDT Pulse 78 05/13/2023 9:00 PM CDT Temperature 37.1 ??C (98.8 ??F) 05/13/2023 9:00 PM CD T Respiratory Rate 16 05/13/2023 9:00 PM CDT Oxygen Saturation 96% 05/13/2023 9:00 PM CDT Inhaled Oxygen Concentration - - Weight 99 kg (218 lb 4.1 oz) 05/13/2023 7:23 PM CDT Height 182.9 cm (6') 01/29/2019 3:09 PM CDT Body Mass Index 29.6 01/29/2019 3:09 PM CDT Plan of Treatment Not on file Procedures Procedure Name Priority Date/Time Associated Diagnosis Comments COMPREHENSIVE METABOLIC PANEL, S/P STAT 05/13/2023 7:56 PM CDT from Last 3 Months or Most Recently Relevant to Health Maintenance Results * (ABNORMAL) Comprehensive Metabolic Panel (05/13/2023 7:56 PM CDT) Potassium, P 3.4(L) 3.6 - 5.2 mmol/L 05/13/2023 8:22 PM CDT NPRG Sodium, P 137 135 - 145 mmol/L 05/13/2023 8:22 PM CDT NPRG Chloride, P 100 98 - 107 mmol/L 05/13/2023 8:22 PM CDT NPRG Bicarbonate, P 27 22 - 29 mmol/L 05/13/2023 8:22 PM CDT NPRG Anion Gap, P 10 7 - 15 05/13/2023 8:22 PM CDT NPRG BUN (Blood Urea Nitrogen), P 19 8 - 24 mg/dL 05/13/2023 8:22 PM CDT NPRG Creatinine 1.13 0.74 - 1.35 mg/dL 05/13/2023 8:22 PM CDT NPRG Estimated GFR (eGFR) 78 >=60 mL/min/BS A 05/13/2023 8:22 PM CDT NPRG Comment: Estimated GFR calculated using the 2020 CKD_EPI creatinine equation. Calcium, Total, P 9.4 8.6 - 10.0 mg/dL 05/13/2023 8:22 PM CDT NPRG Glucose, P 126 70 - 140 mg/dL 05/13/2023 8:22 PM CDT NPRG Protein, Total, P 7.1 6.3 - 7.9 g/dL 05/13/2023 8:22 PM CDT NPRG Albumin, P 4.2 3.5 - 5.0 g/dL 05/13/2023 8:22 PM CDT NPRG Aspartate Aminotransferase (AST), P 33 8 - 48 U/L 05/13/2023 8:22 PM CDT NPRG Alkaline Phosphatase, P 69 40 - 129 U/L 05/13/2023 8:22 PM CDT NPRG Alanine Aminotransferase (ALT), P 39 7 - 55 U/L 05/13/2023 8:22 PM CDT NPRG Bilirubin, Total, P 0.9 <=1.2 mg/dL 05/13/2023 8:22 PM CDT NPRG Blood (Blood, Venous) 05/13/2023 7:56 PM CDT 05/13/2023 7:59 PM CDT Yeimi Maria D.O. LAB BLOOD ADD-ON [facility] [address] [place] [address], [facility] NPRG [facility] [address] [place] [address] from Last 3 Months or Most Recently Relevant to Health Maintenance
--- OUTSIDE RECORDS SUMMARY | 2024-01-17 10:05 | XMS_ITS | Encounter Summary ---
Author Name Unknown Organization [facility] Address [address] [place] [address] Care Team Providers Care Winder Tender Name Role Phone Jossue Chapin MD Primary Care Provider [phone]- [phone] Reason for Visit * Reason Comments Follow-up Asthma/Allergies Encounter Details Date Type Department Care Team (Late st Contact Info) Description 11/22/2023 8:10 AM DIRECTOR DIGITAL MARKETING Office Visit [facility] [address] [place] [address] Brenda Copeland MD [address] [place] [address] [phone] Moderate persistent asthma, unspecified whether complicated (HRC) (Primary Dx); Allergic rhinitis, unspecified seasonality, unspecified trigger; Encounter for pulmonary function testing; Chronic sinusitis, unspecified location Social History Tobacco Use Types Packs/Day Years Used Date Smoking Tobacco: Former Cigarettes Q uit: 1990 Smokeless Tobacco: Never Alcohol Use Standard Drinks/Week Comments Yes 3 (1 standard drink = 0.6 oz pur e alcohol) Sex and Gender Information Value Date Recorded Sex Assigned at Not on file Gender Identity Not on file Sexual Orientation Not on file documented as of this encounter Last Filed Vital Signs Vital Sign Reading Time Taken Comments Blood Pressure 135/77 11/22/2023 8:09 AM DIRECTOR DIGITAL MARKETING Pulse 75 11/22/2023 8:09 AM DIRECTOR DIGITAL MARKETING Temperature - - Respiratory Rate - - Oxygen Saturation 99% 11/22/2023 8:09 AM DIRECTOR DIGITAL MARKETING Inhaled Oxygen Concentration - - Weight 98.9 kg (218 lb) 11/22/2023 8:09 AM DIRECTOR DIGITAL MARKETING p t reported Height 182.9 cm (6') 11/22/2023 8:09 AM DIRECTOR DIGITAL MARKETING pt r eported Body Mass Index 29.57 11/22/2023 8:09 AM DIRECTOR DIGITAL MARKETING documented in this encounter Patient Instructions * Patient Instructions* Brenda Copeland MD - 11/22/2023 8:10 AM DIRECTOR DIGITAL MARKETING Plan is to ask insurance to cover Nucala. The dose would be 1 injection every 4 weeks. No other changes. CTOR DIGITAL MARKETING documented in this encounter Progress Notes * Brenda Copeland MD - 11/22/2023 8:10 AM CST Images from the original note were not included. Hayden is a 53 yo male with asthma, chronic sinusitis, allergic rhinitis (positive to most antigens tested), history of nasal polyposis (last surgery 2018, Dr. Kevin Echevarria) and alopecia. Historyof GERD treated with a Robert fundoplication years ago. No issues with GERD following surgery. Baseline spirometry normal, no obstruction. Last seen 01/2023. RHINITIS/SINUSITIS: Sinus CT showed bilateral something, something,.. Told to talk about Dupixent. Feels if there is cotton stuffed in nose. Fly and pressure changes feels like a screw clark driver in nose. Intermittent chunks of purulent drainage. At times, swells to the point of not breathing. Year round. Sense of smell present but varies with congestion. Can not smell gasoline, pig farm. Snoring noted. Sleep study years ago, not normal but not severe enough to warrant intervention. He uses fluticasone nasal spray daily and nasal saline washes with budesonide 0.5 mg with increasedcongestion. Sleeps with breath-rite strip. Afrin occasionally needed to sleep. LUNGS: no problems. No recent infections. Active, exercising 4-5 times per week. Recent, broke an 11 minute mile. Using Advair 250/50 mcg 1 puff in the morning. Albuterol, no need. Hayden has 2 daughters. There are 3 Labradoodle dogs. Nonsmoker. 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 Primary care outside of [facility]. PHYSICAL EXAM: BP 135/77 (BP Location: Left Arm, BP Cuff Size: Regular - Long) Pulse 75 Ht 1.829 m (6') Comment: pt reported Wt 98.9 kg (218 lb) Comment: pt reported SpO2 99% BMI 29.57 kg/m?? Healthy appearing adult male. Mild congestion noted in voice. Skin: No rashes. Shaved head. Eyes: Conjunctiva clear. PERRL. Ears: Canals patent. TMs normal. Nose: Purulent drainage will likely polyps phoned in very posterior portion of nasal cavities bilaterally. Oropharynx: Normal. Teeth and gums in good repair. Neck: No palpable adenopathy. No thyromegaly. Lungs: Clear lung gardiner, with good air movement. No wheezes. CV: RRR. Normal S1, S2. No murmurs. OBJECTIVE TESTS: PFT: Normal and unchanged compared to previous. NIOX: 13 ppb, previous tests 16-22 ppb.. IMPRESSION: 1. Asthma, clinically controlled. No change in treatment. 2. Allergic rhinitis with history of polypoid sinusitis. Nucala/mepolizumab and Dupixent/dupilumab discussed in some detail. Hayden prefers to try dupilumab. He is concerned about GI bleed which she has experienced with other anti- inflammatory agents, specifically steroids in the past. There is no documented increase risk with mepolizumab or dupilumab. The plan would be if approved, 4 month trial.At that time, medication should prove it provides enough benefit to warrant ongoing use or the medication would be stopped. Local site reactions are the most common side effects. Safety regarding long-term use not available. PLAN: 1. Advair 250-50 mcg 1 puff daily, increasing to b.i.d. with exacerbations 2. Albuterol MDI 2 puffs or 1 nebulized treatment q.4 hours p.r.n. 3. Continue fluticasone nasal spray 2 sprays per nares daily 4. Add budesonide 0.5 mg to nasal saline rinses with exacerbations and taper when able 5. Prior authorization for mepolizumab 100 mg sq every 4 weeks. Letter written to be included with PA process. 6. Return to clinic 4 months after starting biologic agent, proximally 04/2024 or as needed Total time of visit including time spent with patient, chart review and coordination of care was 36minutes. CTOR DIGITAL MARKETING documented in this encounter Plan of Treatment Upcoming Encounters Date Type Department Care Team (Late st Contact Info) Description 04/24/2024 8:10 AM CDT Appointment [facility] [address] [place], [place] [phone] Brenda Copeland MD [address] [place] [address] [phone] documented as of this encounter Procedures Procedure Name Priority Date/Time Associated Diagnosis Comments SPIROMETRY ALLERGY Routine 11/22/2023 8: 04 AM DIRECTOR DIGITAL MARKETING Encounter for pulmonary function testing documented in this encounter Results * SPIROMETRY ALLERGY (11/22/2023 8:04 AM DIRECTOR DIGITAL MARKETING) FVC-PRED 5.31 PN BREEZE FVC 4.72 PN BREEZE FVC-%PRED 88 PN BREEZE FEV1-PRED 4.08 PN BREEZE FEV1 3.74 PN BREEZE FEV1-%Pred 91 PN BREEZE [id number] 77 PN BREEZE [id number] Pre 79 PN BREEZE [id number]-[id number] RE 102 PN BREEZE FEFMAX-PRED 10.11 PN BREEZE FEFMAX-PRE 11.59 PN BREEZE FEFMAX-%PRED-AZ E 114 PN BREEZE [id number] 3.50 PN BREEZE [id number] 3.30 PN BREEZE [id number]-P RE 94 PN BREEZE 11/22/2023 8:04 AM DIRECTOR DIGITAL MARKETING Brenda Copeland MD PN PFT ORDERABLES PN GILDA documented in this encounter Visit Diagnoses Diagnosis Moderate persistent asthma, unspecified whether complicated (HRC)- Primary Allergic rhinitis, unspecified seasonality, unspecified trigger Encounter for pulmonary function testing Other specified examination Chronic sinusitis, unspecified location documented in this encounter Care Teams Winder Tender Relationship Specialty Start Date End Date Jossue Chapin MD [address] [place] [address] PCP - General 09/26/18 documented as of this encounter
--- OUTSIDE RECORDS SUMMARY | 2024-01-17 10:05 | XMS_ITS | Clinical Summary ---
Author Name Unknown Organization [facility] Address [place], [place] [address] Care Team Providers Care Rn Gyn Name Role Phone Santino Sauceda MD Primary Care Provider [phone] Allergies Active Allergy Reactions Criticality Noted Date Comments Corticosteroids (Glucocorticoids) *Unknown Quinolones *Unknown 04/29/2017 Medications Medication Sig Dispensed Refills Start Date End Date Status amLODIPine (NORVASC) 5 mg tabletIndications:HTN (hypertension) Take 1 tablet by mouth once daily. 90 tablet 3 04/29/2017 Active lisinopril (PRINIVIL; ZESTRIL) 20 mg tabletIndications:HTN (hypertension) Take 1 tablet by mouth once daily. 90 tablet 3 05/27/2017 Active budesonide (PULMICORT RESPULES) 0.5 mg/2 mL neb suspension Inhale 0.5 mg by mouth. 11/19/2019 Active VYVANSE 20 mg capsule 11/21/2019 Act alek fluticasone (50 mcg per actuation) nasal solution (FLONASE) 2 Sprays. 07/05/2017 Active fluticasone propion-salmeteroL (ADVAIR) 250-50 mcg/Dose diskus inhaler Inhale 1 Puff by mouth. 07/05/2017 Active escitalopram oxalate (LEXAPRO) 20 mg tablet TK 1/2 T PO D 11/17/2019 Active albuterol HFA 90 mcg/actuation inhaler Inhale 2 Puffs by mouth every 4 hours if needed. 07/05/2017 Active amoxicillin-clavulana te 875-125 mg tablet (AUGMENTIN) Take 1 Tab by mouth. 11/19/2019 Active pentoxifylline (TRENTAL) 400 mg ER tabletIndications:Ana virgen's disease Take 1 tablet by mouth 2 times daily with meals. 60 tablet 11 10/22/2020 Active Social History Tobacco Use Types Packs/Day Years Used Date Smoking Tobacco: Former Smokeless Tobacco: Never Alcohol Use Standard Drinks/Week Comments Yes 0 (1 standard drink = 0.6 oz pur e alcohol) Sex and Gender Information Value Date Recorded Sex Assigned at Not on file Gender Identity Not on file Sexual Orientation Not on file Obstetrics History Last Filed Vital Signs Vital Sign Reading Time Taken Comments Blood Pressure 162/92 10/22/2020 1:54 PM POULTRY HATCHERY SUPERVISOR Pulse 74 10/22/2020 1:54 PM POULTRY HATCHERY SUPERVISOR Temperature - - Respiratory Rate 16 05/27/2017 10:3 6 AM CDT Oxygen Saturation 97% 10/22/2020 1:54 PM POULTRY HATCHERY SUPERVISOR Inhaled Oxygen Concentration - - Weight 105.1 kg (231 lb 11.2 oz) 10/22/2020 1:54 PM POULTRY HATCHERY SUPERVISOR Height 182.9 cm (6') 11/21/2019 10:00 AM POULTRY HATCHERY SUPERVISOR Body Mass Index 31.42 11/21/2019 10:00 AM POULTRY HATCHERY SUPERVISOR Plan of Treatment Health Maintenance Due Date Last Done Comments Tdap 1981 Depression screening for age 12+ 1982 HIV for age 15-65 1985 Hepatitis C screening for ag e 18-79 1988 Tetanus booster 1990 Colonoscopy through age 75 2015 Lipids for age 45-75 2015 Zoster (shingles) series for age 50+ (1 of 2) 2020 BMI (ht and wt on same day) for age 18+ 11/20/2020 11/21/2019 COVID-19 vaccine series (2 - 2022- season) 2023 12/06/2020 Influenza for age 50-64 05/20/2024 Pneumococcal series for age 6-64 Aged Out No longer eligible based on patient's age to complete this topic Care Teams Rn Gyn Relationship Specialty Start Date End Date Santino Sauceda MD [address] [place] [address] PCP - General Family Practice 10/22/20
--- OUTSIDE RECORDS SUMMARY | 2024-01-17 10:05 | XMS_ITS | Clinical Summary ---
Author Name Unknown Organization [facility] Address [address] [place] [address] Care Team Providers Care Pyrotechnist Name Role Phone Unavailable Primary Care Provider Unavailabl e Source Comments Patient records contain information from all sites at [facility]. For routine questions regarding patient records, call [phone] during business hours, M-F 8:00 AM - 5:00 PM Central Time. Record requests for emergency care only can be directed to [phone] at any time.[facility] Allergies Active Allergy Reactions Criticality Noted Date [...] 1970 FIT 1970 HIV Screening 1970 Hepatitis C Screening 1970 Lipid (Cholesterol) Screening 1970 Hepatitis B Vaccines (1 of 3 - 19+ 3-dose series) 1989 Pneumococcal vaccine (0-64 y ears) (2 of 2 - PCV) 01/25/2015 01/25/2014, 05/09/1998 Zoster Vaccines (1 of 2) 2020 Depression Screening (Annual PHQ-2) 09/19/2023 Creatinine Level (Kidney Fun ction Test) 05/13/2024 05/13/2023, 01/29/2019, 08/25/2017 Potassium Level 05/13/2024 05/13/2023, 01/17, 08/25/2017 Sodium Level 05/13/2024 05/13/2023, 01/17, 08/25/2017 Fasting Glucose for Diabetes Screening 05/13/2026 05/13/2023, 01/29/2019, 08/25/2017 DTaP,Tdap,and Td Vaccines (3 - Td or Tdap) 01/07/2027 01/07/2017, 06/15/2007 COVID-19 Vaccine Completed 07/08/2023, , 04/05/2022, Additional history exists Influenza Vaccine Completed 07/08/2023, , 07/14/2021, Additional history exists Procedures Procedure Name Priority Date/Time Associated Diagnosis [...] CDT Yeimi Maria D.O. LAB BLOOD ADD-ON [facility] [address] [place] [address], [facility] NPRG [facility] [address] [place] [address] from Last 3 Months or Most Recently Relevant to Health Maintenance
--- OUTSIDE RECORDS SUMMARY | 2024-01-17 10:05 | XMS_ITS | Encounter Summary ---
Author Name Unknown Organization [facility] Address [address] [place] [address] Care Team Providers Care Endoscopy Rn Name Role Phone Jossue Chapin MD Primary Care Provider [phone] Encounter Details Date Type Department Care Team (Latest Contact Info) Description 11/22/2023 Orders Only HIM DEPARTMENT ProviderOc [place] [address] Social History Tobacco Use Types Packs/Day Years [...] as of this encounter Plan of Treatment Upcoming Encounters Date Type Department Care Team (Late st Contact Info) Description 04/24/2024 8:10 AM CDT Appointment [facility] [address] [place], [place] [id number] Brenda Copeland MD [address] [place] [address] [phone] documented as of this encounter Procedures Procedure Name Priority Date/Time Associated Diagnosis Comments PULMONARY TEST SC 11/22/2023 documented in this encounter Results * PULMONARY TEST SC (11/22/2023) Interface Provider MD DUMMY/OTHER/AR documented in this encounter Visit Diagnoses Not on filedocumented in this encounter Care Teams Endoscopy Rn Relationship Specialty Start Date End Date Jossue Chapin MD [address] [place] [address] PCP - General 09/26/18 documented as of this encounter
--- OUTSIDE RECORDS SUMMARY | 2024-01-17 10:05 | XMS_ITS | Encounter Summary ---
Author Name Unknown Organization [facility] Address [address] [place] [address] Care Team Providers Care Supervisor Beehive Kiln Name Role Phone Jossue Chapin MD Primary Care Provider [phone]- [phone] Reason for Visit * Reason Comments Prior Authorization For Medication Nucal a Auto-injector Encounter Details Date Type Department Care Team (Late st Contact Info) Description 11/22/2023 Telephone [facility] [address] [place] [address] Brenda Copeland MD [address] [place] [address] Prior Authorization For Medication (Nucala Auto-injector) Social History Tobacco Use Types Packs/Day Years [...] documented as of this encounter Nursing Notes * Odalis Dudley RN - 12/01/2023 9:46 AM CDT Called pt and left detailed message on secure VM with message below. Provided nurse # with any questions/concerns. Note complete. * Hemalatha Kelley RN - 11/29/2023 12:47 PM CDT Called patient and left message requesting a call back. * Shivani Grover MD - 11/29/2023 12:46 PM CDT Script approved. Please alert the patient. Thanks. * Leah Damon RN - 11/29/2023 9:19 AM CDT Provider EAGLE. LV: 11/22/23. MD plan: Return to clinic 4 months after starting biologic agent, proximally 04/2024 or as needed . FV: Yes - Date: 04/24/24. [facility], please advise as chaperon MD as [facility] is out of office and med is outside nursing SO. QS pended until f/u appt with BRAULIO. * Lorin White - 11/29/2023 8:57 AM CDT Please send prescription to Specialty [facility]. Prior Authorization for Nucala Auto-injector approved through [employer] insurance. Approved under Pharmacy benefit for [facility]. Approval dates: 11/26/2023 through 11/25/2024 Reference ID: STEPHANIE# [id number] Approval letter sent to [employer], biologic list updated, pt contacted. Specialty Pharmacy: [address] [place] [id number] * Lorin White - 11/24/2023 10:13 AM CST 1st PA request denied,added office note from Dr. Jones to 2nd PA request. Desir: [id number] RGLASS FABRICATOR * Lorin White - 11/22/2023 11:50 AM CST MEDICATION PRIOR AUTHORIZATION - Self-injection Medication name: Nucala Auto-injector Si mg injection every 28 days Provider name: Dr. Brenda Copeland Insurance: [facility] Member number: [id number] Prior authorization form completed through [employer] and e-faxed to Pharmacy clinical account manager. Desir: [id number] RGLASS FABRICATOR documented in this encounter Plan of Treatment Upcoming Encounters Date Type Department Care Team (Late st Contact Info) Description 04/24/2024 8:10 AM CDT Appointment [facility] [address] [place] [address] Brenda Copeland MD [address] [place] [phone] documented as of this encounter Visit Diagnoses Not on filedocumented in this encounter Care Teams Supervisor Beehive Kiln Relationship Specialty Start Date End Date Jossue Chapin MD [address] [place] [address] PCP - General 09/26/18 documented as of this encounter
--- OUTSIDE RECORDS SUMMARY | 2024-01-17 10:05 | XMS_ITS ---
Author Name Unknown Organization [facility] Address [address] [place] [address] Care Team Providers Care Assistant Golf Course Superintendent Name Role Phone Unavailable Unavailable Unavailable Surgery Details Not on file Complications Check Surgery Details section. Procedure Estimated Blood Loss Check Surgery Details section. Procedure Findings Check Surgery Details section. Procedure Specimens Taken Check Surgery Details section.
--- OUTSIDE RECORDS SUMMARY | 2024-01-17 10:05 | XMS_ITS | Clinical Summary ---
Author Name Unknown Organization [facility] Address [address] [place] [address] Care Team Providers Care Airframe And Power Plant Mechanic Name Role Phone Jossue Chapin MD Primary Care Provider [phone] Source Comments You are receiving this document as you are listed as the primary care provider,follow-up provider, or the patient has been referred to you for consultation.This is in compliance with the Medicare and[facility] EHR Incentive Program,which states Providers who transition their patient to another setting of careor provider of care or refers their patient to another provider of care shouldprovide summary care record for each transition of care or referral. [facility] Allergies Active Allergy Reactions Criticality Noted Date Comments Corticosteroids Other, see comments 04/29/2017 Levofloxacin 12/19/2006 PN: LW Reaction: internal bleeding Prednisone 12/19/2006 PN: LW Reaction: internal bleeding Medications Medication Sig Dispensed Refills Start Date End Date Status lisinopril (ZESTRIL) 5 MG tablet Take 1 Tablet (5 mg) by mouth daily. Active lisdexamfetamine (VYVANSE) 50 MG capsule Take 1 Capsule (50 mg) by mouth daily. Active amLODIPine (NORVASC) 5 MG tablet Take 1 Tablet (5 mg) by mouth daily. Active MAGNESIUM OR Take 250 mcg by mouth. Active hydrocortisone 2.5 % cream MAGUI EXT AA BID 08/20/2020 Active ketoconazole (NIZORAL) 2 % cream APPLY 1 APPLICATION TO FACIAL AREAS BID 08/20/2020 Active chlorthalidone (HYGROTON) 25 MG tablet Take 0.5 Tablets (12.5 mg) by mouth daily. 12/28/2022 Active Cyanocobalamin (VITAMIN B-12) 500 MCG tablet Take 1 Tablet (500 mcg) by mouth daily. Active lisdexamfetamine (VYVANSE) 20 MG capsule Take 1 Capsule (20 mg) by mouth every morning. 11/08/2023 Active albuterol 2.5 mg/3 mL, 0.083%, (PROVENTIL) nebulizer solution 1 Each (2.5 mg) by Nebulization route every 6 hours as needed. 180 mL 1 11/22/2023 Active ALBUterol sulfate HFA 108 (90 Base) MCG/ACT inhaler Inhale 2 Puffs every 4 hours as needed. 18 g 1 11/22/2023 Active budesonide (PULMICORT) 0.5 MG/2ML inhalation suspension Inhale 2 mL (0.5 mg) daily. Use with nasal saline rinse 180 mL 3 11/22/2023 Active fluticasone propionate (FLONASE) 50 MCG/ACT nasal solution Place 2 Sprays into both nostrils daily. 48 g 3 11/22/2023 Active fluticasone-salmet johanny (ADVAIR DISKUS) 250-50 MCG/ACT diskus inhaler Inhale 1 Puff two times a day. Rinse mouth/gargle after use 3 Each 3 11/22/2023 Active Mepolizumab 100 MG/ML SOAJ Inject 1 mL (100 mg) subcutaneously every 4 weeks. 1 Each 6 11/29/2023 Active Active Problems Problem Noted Date Diagnosed Date Psoriasis 09/01/2016 Right elbow pain 09/01/2016 Alopecia areata 09/01/2016 Chronic pain of both knees 09/01/2016 Nasal polyp 02/22/2013 Overweight 02/22/2013 Overview: Overweight(278.02) ([facility]) Anemia 04/07/2012 Diarrhea 04/07/2012 Diverticulitis of colon with perforation 012 Asthma 02/23/2003 Overview: Asthma NOS Esophageal reflux 02/23/2003 Overview: Gastroesophageal Reflux Disease Allergic rhinitis 02/23/2003 Overview: Rhinitis Allergic NOS Encounters Date Type Department Care Team Description 11/22/2023 8:10 AM CABINET WORKER Office Visit [facility] [address] [place] [address] Brenda Copeland MD Moderate persistent asthma, unspecified whether complicated (HRC) (Primary Dx); Allergic rhinitis, unspecified seasonality, unspecified trigger; Encounter for pulmonary function testing; Chronic sinusitis, unspecified location 11/22/2023 Orders Only HIM DEPARTMENT Provider, MD Oc 11/22/2023 Telephone [facility] [address] [facility] [facility] [address] Brenda Copelnad MD Prior Authorization For Medication (Nucala Auto-injector) from Last 3 Months Immunizations Name Administration Dates Next Due Flu Vac Preserv Free (3+yrs) 07/22/2011, 07/14/2010,06/13/2009,2006,09/15/2006 Influenza IIV4 (Quadrivalent ) 0.5mL (33638) 07/05/2017,07/29/2016 Influenza, Unspecified Formulation 06/13/1998 PPSV23 (Pneumovax) 05/09/1998 Pfizer Monovalent 12+ Purple Top 12/06/2020 TDAP (ADACEL) 06/15/2007 Family History Medical History [...] Comments Blood Pressure 135/77 11/22/2023 8:09 AM CABINET WORKER Pulse 75 11/22/2023 8:09 AM CABINET WORKER Temperature 36.6 ??C (97.9 ??F) 02/22/2013 8:59 AM CD T Respiratory Rate 16 02/22/2013 8:59 AM CDT Oxygen Saturation 99% 11/22/2023 8:09 AM CABINET WORKER Inhaled Oxygen Concentration - - Weight 98.9 kg (218 lb) 11/22/2023 8:09 AM CABINET WORKER p t reported Height 182.9 cm (6') 11/22/2023 8:09 AM CABINET WORKER pt r eported Body Mass Index 29.57 11/22/2023 8:09 AM CABINET WORKER Plan of Treatment Upcoming Encounters Date Type Department Care Team (Late st Contact Info) Description 04/24/2024 8:10 AM CDT Appointment [facility] [address] [place], [place] [id number] Brenda Copeland MD [address] [place] [id number] Health Maintenance Due Date Last Done Comments Colon Cancer Screening Plan Due 1970 Diabetes Screening- (based on age and BMI) 1970 Hep C Screening (Preventive Services) 1970 PSA Screening Discussion 1970 HIV Screening (Preventive Services) 1986 Adult Preventive Visit 1988 HepB (1) 1989 Cholesterol 06/15/2012 06/15/2007 Pneumococcal (2 - PCV) 01/25/2015 01/25/2014, 1997 Zoster/Shingles (1 of 2) 2020 DTaP/Tdap/Td (3 - Tdap) 01/07/2027 01/07/2017, 06/15 COVID-19 Vaccine Completed 07/08/2023, , 04/05/2022, Additional history exists Influenza Completed 07/08/2023, 06/20, 07/14/2021, Additional history exists HepA Aged Out No longer eligi ble based on patient's age to complete this topic Hib Aged Out No longer eligi ble based on patient's age to complete this topic IPV (Polio) Aged Out No longer eligi ble based on patient's age to complete this topic MCV4 Aged Out No longer eligi ble based on patient's age to complete this topic Procedures Procedure Name Priority Date/Time Associated Diagnosis Comments SPIROMETRY ALLERGY Routine 11/22/2023 8: 04 AM CABINET WORKER Encounter for pulmonary function testing PULMONARY TEST SC 11/22/2023 LIPID PANEL & DIRECT LDL (IF NEEDED) Routine 06/15/2007 9:22 AM CDT from Last 3 Months or Most Recently Relevant to Health Maintenance Results * SPIROMETRY ALLERGY (11/22/2023 8:04 AM CABINET WORKER) FVC-PRED 5.31 PN BREEZE FVC 4.72 PN BREEZE FVC-%PRED 88 PN BREEZE FEV1-PRED 4.08 PN BREEZE FEV1 3.74 PN BREEZE FEV1-%Pred 91 PN BREEZE [id number] 77 PN BREEZE [id number] Pre 79 PN BREEZE [id number]-P RE 102 PN BREEZE FEFMAX-PRED 10.11 PN BREEZE FEFMAX-PRE 11.59 PN BREEZE FEFMAX-%PRED-CO E 114 PN BREEZE [id number] 3.50 PN BREEZE [id number] 3.30 PN BREEZE [id number]-P RE 94 PN BREEZE 11/22/2023 8:04 AM CABINET WORKER Brenda Copeland MD PN PFT ORDERABLES PN BREEZE * PULMONARY TEST SC (11/22/2023) Interface Provider DUMMY/OTHER/AR * (ABNORMAL) Lipid Panel and Direct LDL(If Needed) (06/15/2007 9:22 AM CDT) Hours Fasting 12.0 Hours HP CONVERSION Cholesterol/HDL Ratio Screen 5.9 No normal range HP CONVERSION Cholesterol 218(H) <200 mg/dL HP CONVERSION HDL Cholesterol 37(L) 40 - 60 mg/dL HP CONVERSION Triglycerides 310(H) 0 - 149 mg/dL HP CONVERSION LDL Calculated 119 0 - 130 mg/dL HP CONVERSION Comment: 06/15/2007 9:22 AM CDT Laci Hall MD LAB_1 HP CONVERSION from Last 3 Months or Most Recently Relevant to Health Maintenance Advance Directives * Full Code (Latest Code Status on File) Date Activated Date Inactivated Comments 04/05/2012 10:27 PM 04/08/2012 5:55 PM Care Teams Airframe And Power Plant Mechanic Relationship Specialty Start Date End Date Jossue Chapin MD [address] [place] [address] PCP - General 09/26/18
== END 2023-12-28 09:13 | disposition home or self-care (01) ==
LOC: NFLDREF 01-17 10:02
PROVIDERS: PCP Family Medicine; Referring Provider Family Medicine; Visit Provider Family Medicine
DX: E78.5 Hyperlipidemia, unspecified (principal); I10 Essential (primary) hypertension; Z12.5 Encounter for screening for malignant neoplasm of prostate
CPT/HCPCS: 80053; 80061; G0103

== ENCOUNTER 2024-05-23 08:38 | Outpatient (CLI) | payer OTHER, SELFPAY ==
--- OUTSIDE RECORDS SUMMARY | 2024-05-23 08:45 | XMS_ITS | Clinical Summary ---
Author Organization [facility] Address [address] [place] [address] Care Team Providers Care Engraver Set Up Operator Name Role Phone Jossue Chapin MD Primary Care Provider [phone]- [phone] Source Comments You are receiving this document as you are listed as the primary care provider,follow-up provider, or the patient has been referred to you for consultation.This is in compliance with the Medicare and[facility] EHR Incentive Program,which states Providers who transition their patient to another setting of careor provider of care or refers their patient to another provider of care shouldprovide summary care record for each transition of care or referral. [facility] Allergies Active Allergy Reactions Criticality Noted Date [...] knees 09/01/2016 Nasal polyp 02/22/2013 Overweight 02/22/2013 Overview (05/11/2017): Overweight(278.02) ([facility]) Anemia 04/07/2012 Diarrhea 04/07/2012 Diverticulitis of colon with perforation 012 Asthma 02/23/2003 Overview (05/11/2017): Asthma NOS Esophageal reflux 02/23/2003 Overview (05/11/2017): Gastroesophageal Reflux Disease Allergic rhinitis 02/23/2003 Overview (05/11/2017): Rhinitis Allergic NOS Encounters Date Type Department Care Team Description 04/24/2024 8:10 AM CDT Office Visit [facility] [address] [place] [address] Brenda Copeland MD Encounter for pulmonary function testing (Primary Dx); Moderate persistent asthma, unspecified whether complicated (HRC); Chronic sinusitis, unspecified location; Allergic rhinitis, unspecified seasonality, unspecified trigger from Last 3 Months Immunizations Name Administration Dates Next Due Flu Vac Preserv Free (3+yrs) 07/22/2011, 07/14/2010,06/13/2009,2006,09/15/2006 Influenza IIV4 (Quadrivalent ) 0.5mL (32079) 07/05/2017,07/29/2016 Influenza, Unspecified Formulation 06/13/1998 PPSV23 (Pneumovax) [...] Sign Reading Time Taken Comments Blood Pressure 144/95 04/24/2024 8:13 AM CDT Pulse 61 04/24/2024 8:13 AM CDT Temperature 36.6 ??C (97.9 ??F) 02/22/2013 8:59 AM CD T Respiratory Rate 16 02/22/2013 8:59 AM CDT Oxygen Saturation 99% 04/24/2024 8:13 AM CDT Inhaled Oxygen Concentration - - Weight 98.9 kg (218 lb) 11/22/2023 8:09 AM MANAGER AVIATION p t reported Height 182.9 cm (6') 11/22/2023 8:09 AM MANAGER AVIATION pt r eported Body Mass Index 29.57 11/22/2023 8:09 AM MANAGER AVIATION Plan of Treatment Health Maintenance Due Date Last Done Comments Colon Cancer Screening Plan Due 1970 Diabetes Screening- (based on age and BMI) 1970 Hep C Screening (Preventive Services) 1970 PSA Screening Discussion 1970 HIV Screening (Preventive Services) 1986 Adult Preventive Visit 1988 HepB (1) 1989 Cholesterol 06/15/2012 06/15/2007 Pneumococcal (2 - PCV) 01/25/2015 01/25/2014, 1997 DTaP/Tdap/Td (2 - Tdap) 06/15/2017 06/15/2007 Zoster/Shingles (2 of 2) 02/06/2024 12/12/2023 Influenza (#1) 2024 07/08/2023, 06/20, 07/14/2021, Additional history exists COVID-19 Vaccine Completed 07/08/2023, , 04/05/2022, Additional history exists HepA Aged Out No [...] Date/Time Associated Diagnosis Comments SPIROMETRY ALLERGY Routine 04/24/2024 8: 06 AM CDT Encounter for pulmonary function testing LIPID PANEL & DIRECT LDL (IF NEEDED) Routine 06/15/2007 9:22 AM CDT from Last 3 Months or Most Recently Relevant to Health Maintenance Results * SPIROMETRY ALLERGY (04/24/2024 8:06 AM CDT) FVC-PRED 5.30 PN BREEZE FVC 4.68 PN BREEZE FVC-%PRED 88 PN BREEZE FEV1-PRED 4.07 PN BREEZE FEV1 3.63 PN BREEZE FEV1-%Pred 89 PN BREEZE [id number] 77 PN BREEZE [id number] Pre 78 PN BREEZE [id number]-P RE 100 PN BREEZE FEFMAX-PRED 10.09 PN BREEZE FEFMAX-PRE 11.51 PN BREEZE FEFMAX-%PRED-VA E 114 PN BREEZE [id number] 3.48 PN BREEZE [id number] 3.01 PN BREEZE [id number]-P RE 86 PN BREEZE 04/24/2024 8:06 AM CDT Brenda Copeland MD PN PFT ORDERABLES PN BREEZE * (ABNORMAL) Lipid Panel and Direct LDL(If [...] 10:27 PM 04/08/2012 5:55 PM Care Teams Engraver Set Up Operator Relationship Specialty Start Date End Date Jossue Chapin MD [address] [place] [address] PCP - General 09/26/18
--- OUTSIDE RECORDS SUMMARY | 2024-05-23 08:45 | XMS_ITS ---
Author Organization [facility] Address [address] [place] [address] Care Team Providers Care X Ray Physician Name Role Phone Unavailable Unavailable Unavailable Surgery Details Not on file Complications Check Surgery Details section. Procedure Estimated Blood Loss Check Surgery Details section. Procedure Findings Check Surgery Details section. Procedure Specimens Taken Check Surgery Details section.
--- OUTSIDE RECORDS SUMMARY | 2024-05-23 08:45 | XMS_ITS | Referral Summary ---
Author Organization [facility] Address [address] [place] [address] Care Team Providers Care Audio Visual Technician Name Role Phone Unavailable Primary Care Provider Unavailabl e Source Comments Patient records contain information from all sites at [facility]. For routine questions regarding patient records, call [phone] during business hours, M-F 8:00 AM - 5:00 PM Central Time. Record requests for emergency care only can be directed to [phone] at any time.[facility] Allergies Active Allergy Reactions Criticality Noted Date [...] CDT Yeimi Maria D.O. LAB BLOOD ADD-ON [facility] [address] [place] [address], [facility] NPRG [facility] [address] [place] [address] from Last 3 Months or Most Recently Relevant to Health Maintenance
--- OUTSIDE RECORDS SUMMARY | 2024-05-23 08:45 | XMS_ITS | Clinical Summary ---
Author Organization [facility] Address [address] [place] [address] Care Team Providers Care Electrician Apprentice Powerhouse Name Role Phone Unavailable Primary Care Provider Unavailabl e Source Comments Patient records contain information from all sites at [facility]. For routine questions regarding patient records, call [phone] during business hours, M-F 8:00 AM - 5:00 PM Central Time. Record requests for emergency care only can be directed to [phone] at any time.[facility] Allergies Active Allergy Reactions Criticality Noted Date [...] 08/25/2017 Sodium Level 05/13/2024 05/13/2023, 01/17, 08/25/2017 Influenza Vaccine (#1) 2024 , 07/15/2022, 07/14/2021, Additional history exists Fasting Glucose for Diabetes Screening 05/13/2026 05/13/2023, 01/29/2019, 08/25/2017 DTaP,Tdap,and Td Vaccines (3 - Td or Tdap) 01/07/2027 01/07/2017, 06/15/2007 COVID-19 Vaccine Completed 07/08/2023, , 04/05/2022, Additional history exists Procedures Procedure Name Priority [...] CDT Yeimi Maria D.O. LAB BLOOD ADD-ON [facility] [address] [place] [address], [facility] NPRG [facility] [address] [place] [address] from Last 3 Months or Most Recently Relevant to Health Maintenance
--- OUTSIDE RECORDS SUMMARY | 2024-05-23 08:45 | XMS_ITS | Clinical Summary ---
Author Organization [facility] [place], [place] [address] Care Team Providers Care Bicycle Designer Name Role Phone Santino Sauceda MD Primary Care Provider [phone] Allergies Active Allergy Reactions Criticality Noted Date [...] 11/19/2019 Active pentoxifylline (TRENTAL) 400 mg ER tabletIndications:Pey param's disease Take 1 tablet by mouth 2 [...] Comments Blood Pressure 162/92 10/22/2020 1:54 PM STAVE SAW OPERATOR Pulse 74 10/22/2020 1:54 PM STAVE SAW OPERATOR Temperature - - Respiratory Rate 16 05/27/2017 10:3 6 AM CDT Oxygen Saturation 97% 10/22/2020 1:54 PM STAVE SAW OPERATOR Inhaled Oxygen Concentration - - Weight 105.1 kg (231 lb 11.2 oz) 10/22/2020 1:54 PM STAVE SAW OPERATOR Height 182.9 cm (6') 11/21/2019 10:00 AM STAVE SAW OPERATOR Body Mass Index 31.42 11/21/2019 10:00 AM STAVE SAW OPERATOR Plan of Treatment Health Maintenance Due Date [...] age to complete this topic Care Teams Bicycle Designer Relationship Specialty Start Date End Date Santino Sauceda MD [address] [place] [address] PCP - General Family Practice 10/22/20
--- OUTSIDE RECORDS SUMMARY | 2024-05-23 08:45 | XMS_ITS | Encounter Summary ---
Author Organization [email or web address] Address [address] [place] [address] Care Team Providers Care Punch Hand Name Role Phone Jossue Chapin MD Primary Care Provider [phone] Reason for Visit * Reason Comments Follow-up Asthma Encounter Details Date Type Department Care Team (Late st Contact Info) Description 04/24/2024 8:10 AM CDT Office Visit [facility] [address] [place], [place] [id number] Brenda Copeland MD [address] [place] [address] Encounter for pulmonary function testing (Primary Dx); Moderate persistent asthma, unspecified whether complicated (HRC); Chronic sinusitis, unspecified location; Allergic rhinitis, unspecified seasonality, unspecified trigger Social History Tobacco Use Types Packs/Day Years [...] Pulse 61 04/24/2024 8:13 AM CDT Temperature - - Respiratory Rate - - Oxygen Saturation 99% 04/24/2024 8:13 AM CDT Inhaled Oxygen Concentration - - Weight - - Height - - Body Mass Index - - documented in this encounter Progress Notes * Brenda Copeland MD - 04/24/2024 8:10 AM CDT Images from the original note were not included. Hayden is a 53 yo male with asthma, chronic sinusitis, allergic rhinitis (positive to most antigens tested), history of nasal polyposis (last surgery 2018, Dr. Kevin Echevarria) and alopecia. Historyof GERD treated with a Robert fundoplication years ago. No issues with GERD following surgery. Baseline spirometry normal, no obstruction. Last seen 01/2024. Started mepolizumab 01/07/2024 100 mg SQ every 4 weeks.4 doses total. No issues with medication or injections. Hayden has noted an accceleration of alopecia and psoriasis. Leg and facial hair falling out. Psoriasis behind ear. No change in polyps. Sees Dr. Rucker, ENT in [place]. LUNGS: No problems. Active, no interference because of breathing issues. Hayden in his convinced lung symptoms are a reflection of nasal congestion. Using Advair 250/50 mcg 1 puff in the morning. Albuterol, no need. SINUSES: No change in overall congestion. Unable to smell. Pressure changes, like descent with flying increases both sinus and lung symptoms. Only obvious allergic trigger was a cat. Little cat exposure. Hayden has 2 young adult daughters. There are 3 Labradoodle dogs. Nonsmoker. 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 Primary care outside of [facility]. PHYSICAL EXAM: BP (!) 144/95 (BP Location: Left Arm, BP Cuff Size: Regular - Long) Pulse 61 SpO2 99% Healthy appearing adult male. Mild nasal congestion noted in voice. Skin: Bald head. Patches on legs without hair. No rash. Eyes: Conjunctiva clear. PERRL. Ears: Canals patent. TMs normal. Nose: Polyp in left posterior nasal cavity. Right nasal cavity congested, no obvious polyps. Oropharynx: Surgically absent uvula. Teeth and gums in good repair. Neck: No palpable adenopathy. No thyromegaly. Lungs: Clear lung gardiner, with good air movement. No wheezes. CV: RRR. Normal S1, S2. No murmurs. OBJECTIVE TESTS: PFT: Normal, unchanged from previous. IMPRESSION: 1. Asthma, clinically controlled. No change in treatment. 2. Allergic rhinitis with history of polypoid sinusitis. Hayden has been on mepolizumab long enough to appreciate benefit. I would suggest follow-up sinus imaging prior to determining if mepolizumab should be continued or not. Alopecia and psoriasis are notknown or common side effects of mepolizumab but association is possible. I suspect there are not enough people with alopecia who started mepolizumab to determine if accelerated course is related or not. PLAN: 1. F/U sinus CT scan with Dr. Rucker 2. Continue mepolizumab 100 mg sq every 4 weeks for now. 3. No other changes in medications for now. No refills needed 4. Return to clinic 6 months if mepolizumab is continue or 1 year if not Billing based on 1 stable medical problem and moderate prescription drug management/mepolizumab documented in this encounter Plan of Treatment Not on file documented as of this encounter Procedures Procedure Name Priority Date/Time Associated Diagnosis Comments SPIROMETRY ALLERGY Routine 04/24/2024 8: 06 AM CDT Encounter for pulmonary function testing documented in this encounter Results * SPIROMETRY ALLERGY (04/24/2024 8:06 AM CDT) FVC-PRED 5.30 PN BREEZE FVC 4.68 PN BREEZE FVC-%PRED 88 PN BREEZE FEV1-PRED 4.07 PN BREEZE FEV1 3.63 PN BREEZE FEV1-%Pred 89 PN BREEZE [id number] 77 PN BREEZE [id number] Pre 78 PN BREEZE [id number]-%PRED-P RE 100 PN BREEZE FEFMAX-PRED 10.09 PN BREEZE FEFMAX-PRE 11.51 PN BREEZE FEFMAX-%PRED-NM E 114 PN BREEZE [id number] 3.48 PN BREEZE [id number] 3.01 PN BREEZE [id number]-P RE 86 PN BREEZE 04/24/2024 8:06 AM CDT Brenda Copeland MD PN PFT ORDERABLES PN BREEZE documented in this encounter Visit Diagnoses Diagnosis Encounter for pulmonary function testing- Primary Other specified examination Moderate persistent asthma, unspecified whether complicated (HRC) Chronic sinusitis, unspecified location Allergic rhinitis, unspecified seasonality, unspecified trigger documented in this encounter Care Teams Punch Hand Relationship Specialty Start Date End Date Jossue Chapin MD [address] [place] [address] PCP - General 09/26/18 documented as of this encounter
--- NOTE | 2024-05-23 09:00 | CRLHL7_ITS ---
For Patients: As a result of the Century Cures Act, medical imaging exams and procedure reports are released immediately into your electronic medical record. You may view this report before your referring provider. If you have questions, please contact your health care provider. Indication: NASAL CONGESTION Technique: CT of the paranasal sinuses without contrast. Coronal and sagittal reformatted images. Bone and soft tissue algorithms. Comparison: 12/17/2023 CT Findings: Frontal sinuses: Moderate polypoid mucosal thickening in the right maxillary sinus, improved compared to the prior study. Mild residual polypoid mucosal thickening in the left frontal sinus. Ethmoid air cells: Stable complete opacification of the right anterior and posterior ethmoid air cells. Improved moderate opacification of the left anterior and posterior ethmoid air cells.. Symmetric depths of the olfactory fossa. The anterior ethmoidal arteries are well-covered by bone. Sphenoid sinuses: Worsening polypoid mucosal thickening in the left sphenoid sinus.. No optic canal or carotid canal dehiscence. Maxillary sinuses: Chronic bilateral uncinate ectomy and medial antrostomy changes. Essentially resolved inflammatory mucosal thickening in the right maxillary sinus. Worsening moderate polypoid mucosal thickening in the left maxillary sinus with inspissated secretions. Redemonstrated are bilateral posterior nasal polyps.. The osteomeatal units are clear. Nasal cavity: The nasal septum is deviated to left. Chronic resection of the left middle turbinate. Skullbase, maxilla, TMJ: No lytic or blastic osseous lesions. No periapical tooth lucencies. Mastoid air cells are clear. Small amount of cerumen in the right external ear canal. Orbital contents: Unremarkable Imaged intracranial contents: Unremarkable Imaged soft tissues structures: Unremarkable IMPRESSION: 1. Chronic postop changes of bilateral maxillary uncinectomies and medial antrostomies and resection of the left middle turbinate. 2. Leftward deviation of the nasal septum. Stable nasal polyps. 3. Significant improved right frontal sinus disease with moderate residual mucosal thickening. 4. Stable complete opacification of the right anterior and posterior ethmoid air cells and improved moderate opacification of the left ethmoid air cells. 5. Essentially resolved mucosal thickening of the right maxillary sinus. Worsening polypoid mucosal thickening in the left maxillary sinus containing inspissated secretions. Please note that all CT scans at this facility use dose modulation, iterative reconstruction, and/or weight-based dosing when appropriate to reduce radiation dose to as low as reasonably achievable. Dictated by Jayjay Vu MD @ 05/23/2024 12:04:30 PM (Electronically Signed)
== END 2024-05-23 08:39 | disposition home or self-care (01) ==
LOC: CT 08:39
PROVIDERS: PCP Family Medicine; Visit Provider Otolaryngology
DX: R09.81 Nasal congestion (principal); J32.0 Chronic maxillary sinusitis; J34.2 Deviated nasal septum; J32.2 Chronic ethmoidal sinusitis
CPT/HCPCS: 70486

== ENCOUNTER 2024-06-05 14:18 | Outpatient (CLI) | payer OTHER, SELFPAY ==
--- NOTE | 2024-06-05 14:00 | CRLHL7_ITS ---
For Patients: As a result of the Century Cures Act, medical imaging exams and procedure reports are released immediately into your electronic medical record. You may view this report before your referring provider. If you have questions, please contact your health care provider. INDICATION: pain in left ankle and joints TECHNIQUE: Venous duplex ultrasound of the left lower extremity utilizing compression with verma-scale, color Doppler, and spectral Doppler imaging. COMPARISON: None FINDINGS: There is no sonographic evidence of deep vein thrombosis in the left common femoral, deep femoral, superficial femoral, popliteal, posterior tibial, peroneal, or contralateral common femoral veins. There is no visualized superficial vein thrombosis. There is ygpw-yk-ojhqljqq soft tissue edema seen at the level of reported pain along the posterior aspect of the ankle and anterior foot. Small fluid collection in the soft tissues of the anterior foot measuring 2.2 x 0.7 x 2.3 centimeters and along the posterior heel measuring 3.1 x 0.8 x 1.3 centimeters. No sonographic evidence of abscess. IMPRESSION: 1. No deep vein thrombosis in the left lower extremity. 2. Yocg-wg-gobffcil soft tissue edema at the level of reported pain along the posterior aspect of the ankle and anterior foot with two small fluid collections. Dictated by Jan Rojas MD @ 06/05/2024 2:59:53 PM (Electronically Signed)
--- OUTSIDE RECORDS SUMMARY | 2024-06-05 14:19 | XMS_ITS | Clinical Summary ---
[facility] Address [address] [place] [address] Care Team Providers Care Casing Inspector Name Role Phone Jossue Chapin MD Primary Care Provider [phone] Source Comments You are receiving this document as you are listed as the primary care provider,follow-up provider, or the patient has been referred to you for consultation.This is in compliance with the Medicare and[facility] Cent[facility]aid EHR Incentive Program,which states Providers who transition their patient to another setting of careor provider of care or refers their patient to another provider of care shouldprovide summary care record for each transition of care or referral. [facility] Allergies Active Allergy Reactions Criticality Noted Date [...] polyp 02/22/2013 Overweight 02/22/2013 Overview (05/11/2017): Overweight(278.02) ([facility]) Anemia 04/07/2012 Diarrhea 04/07/2012 Diverticulitis of colon with perforation 012 Asthma 02/23/2003 Overview (05/11/2017): Asthma NOS Esophageal reflux 02/23/2003 Overview (05/11/2017): Gastroesophageal Reflux Disease Allergic rhinitis 02/23/2003 Overview (05/11/2017): Rhinitis Allergic NOS Encounters Date Type Department Care Team Description 04/24/2024 8:10 AM CDT Office Visit [facility] [address] [place] [address] Brenda Copeland MD Encounter for pulmonary function testing (Primary Dx); Moderate persistent asthma, unspecified whether complicated (HRC); Chronic sinusitis, unspecified location; Allergic rhinitis, unspecified seasonality, unspecified trigger from Last 3 Months Immunizations Name Administration Dates Next Due Flu Vac Preserv Free (3+yrs) 07/22/2011, 07/14/2010,06/13/2009,2006,09/15/2006 Influenza IIV4 (Quadrivalent ) 0.5mL (33614) 07/05/2017,07/29/2016 Influenza, Unspecified Formulation 06/13/1998 PPSV23 (Pneumovax) [...] 98.9 kg (218 lb) 11/22/2023 8:09 AM PATTERN PUNCHER p t reported Height 182.9 cm (6') 11/22/2023 8:09 AM PATTERN PUNCHER pt r eported Body Mass Index 29.57 11/22/2023 8:09 AM PATTERN PUNCHER Plan of Treatment Health Maintenance Due Date [...] 06/15/2007 Zoster/Shingles (2 of 2) 02/06/2024 12/12/2023 COVID-19 Vaccine ( season) 2024 07/08/2023, 07/15/2022, 04/05/2022, Additional history exists Influenza (#1) 2024 07/08/2023, 06/20, 07/14/2021, Additional history exists HepA [...] 3.63 PN BREEZE FEV1-%Pred 89 PN BREEZE [id number] 77 PN BREEZE [id number] Pre 78 PN BREEZE [id number]-%PRED-P RE 100 PN BREEZE FEFMAX-PRED 10.09 PN BREEZE FEFMAX-PRE 11.51 PN BREEZE FEFMAX-%PRED-CA E 114 PN BREEZE [id number] 3.48 PN BREEZE [id number] 3.01 PN BREEZE [id number]-%PRED-P RE 86 PN BREEZE 04/24/2024 8:06 AM [...] 10:27 PM 04/08/2012 5:55 PM Care Teams Casing Inspector Relationship Specialty Start Date End Date Jossue Chapin MD [address] [place] [address] PCP - General 09/26/18
--- OUTSIDE RECORDS SUMMARY | 2024-06-05 14:19 | XMS_ITS | Clinical Summary ---
Author Organization [employer] [facility] Address [place], [place] [address] Care Team Providers Care Application Support Analyst Name Role Phone Santino Sauceda MD Primary Care Provider [phone] Allergies Active Allergy Reactions Criticality Noted Date [...] Comments Blood Pressure 162/92 10/22/2020 1:54 PM DEBATE DIRECTOR Pulse 74 10/22/2020 1:54 PM DEBATE DIRECTOR Temperature - - Respiratory Rate 16 05/27/2017 10:3 6 AM CDT Oxygen Saturation 97% 10/22/2020 1:54 PM DEBATE DIRECTOR Inhaled Oxygen Concentration - - Weight 105.1 kg (231 lb 11.2 oz) 10/22/2020 1:54 PM DEBATE DIRECTOR Height 182.9 cm (6') 11/21/2019 10:00 AM DEBATE DIRECTOR Body Mass Index 31.42 11/21/2019 10:00 AM DEBATE DIRECTOR Plan of Treatment Health Maintenance Due Date [...] age 18+ 11/20/2020 11/21/2019 COVID-19 vaccine series (2022- season) 2024 12/06/2020 Influenza for age 50-64 05/20/2024 Pneumococcal series for age 6-64 Aged Out No longer eligible based on patient's age to complete this topic Care Teams Application Support Analyst Relationship Specialty Start Date End Date Santino Sauceda MD [address] [place] [address] PCP - General Family Practice 10/22/20
--- OUTSIDE RECORDS SUMMARY | 2024-06-05 14:19 | XMS_ITS | Clinical Summary ---
Author Organization [facility] Address [address] [place] [address] Care Team Providers Care Manager Retail Sales Name Role Phone Unavailable Primary Care Provider Unavailabl e Source Comments Patient records contain information from all sites at [facility]. For routine questions regarding patient records, call [phone] during business hours, M-F 8:00 AM - 5:00 PM Central Time. Record requests for emergency care only can be directed to [phone] at any time.[facility] Allergies Active Allergy Reactions Criticality Noted Date [...] CDT Yeimi Maria D.O. LAB BLOOD ADD-ON [facility] [address] [place] [address], [facility] NPRG [facility] [address] [place] [address] from Last 3 Months or Most Recently Relevant to Health Maintenance
--- OUTSIDE RECORDS SUMMARY | 2024-06-05 14:19 | XMS_ITS | Encounter Summary ---
Author Organization [employer] Address [address] [place] [address] Care Team Providers Care Keyboard Action Assembler Name Role Phone Jossue Chapin MD Primary Care Provider [phone] Reason for Visit * Reason Comments Follow-up Asthma Encounter Details Date Type Department Care Team (Late st Contact Info) Description 04/24/2024 8:10 AM CDT Office Visit [facility] [address] [place], [place] [id number] Brenda Copeland MD [address] [place] [address] Encounter for pulmonary function testing [...] in polyps. Sees Dr. Rucker, ENT in [place]. LUNGS: No problems. 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 PHYSICAL EXAM: BP (!) 144/95 [...] 3.63 PN BREEZE FEV1-%Pred 89 PN BREEZE [id number] 77 PN BREEZE [id number] Pre 78 PN BREEZE [id number]-%PRED-P RE 100 PN BREEZE FEFMAX-PRED 10.09 PN BREEZE FEFMAX-PRE 11.51 PN BREEZE FEFMAX-%PRED-CT E 114 PN BREEZE [id number] 3.48 PN BREEZE [id number] 3.01 PN BREEZE [id number]-%PRED-P RE 86 PN BREEZE 04/24/2024 8:06 AM CDT Brenda Copeland MD PN PFT ORDERABLES PN BREEZE documented in this encounter Visit Diagnoses Diagnosis Encounter for pulmonary function testing- Primary Other specified examination Moderate persistent asthma, unspecified whether complicated (HRC) Chronic sinusitis, unspecified location Allergic rhinitis, unspecified seasonality, unspecified trigger documented in this encounter Care Teams Keyboard Action Assembler Relationship Specialty Start Date End Date Jossue Chapin MD [address] [place] [address] PCP - General 09/26/18 documented as of this encounter
--- OUTSIDE RECORDS SUMMARY | 2024-06-05 14:20 | XMS_ITS ---
Author Organization [facility] Address [address] [place] [address] Care Team Providers Care Inspector Machine Cut Glass Name Role Phone Unavailable Unavailable Unavailable Surgery Details Not on file Complications Check Surgery Details section. Procedure Estimated Blood Loss Check Surgery Details section. Procedure Findings Check Surgery Details section. Procedure Specimens Taken Check Surgery Details section.
--- OUTSIDE RECORDS SUMMARY | 2024-06-05 14:20 | XMS_ITS | Referral Summary ---
Author Organization [facility] Address [address] [place] [address] Care Team Providers Care Instructional Support Specialist Name Role Phone Unavailable Primary Care Provider Unavailabl e Source Comments Patient records contain information from all sites at [facility]. For routine questions regarding patient records, call [phone] during business hours, M-F 8:00 AM - 5:00 PM Central Time. Record requests for emergency care only can be directed to [phone] at any time.[facility] Allergies Active Allergy Reactions Criticality Noted Date [...] CDT Yeimi Maria D.O. LAB BLOOD ADD-ON [facility] [address] [place] [address], [facility] NPRG [facility] [address] [place] [address] from Last 3 Months or Most Recently Relevant to Health Maintenance
== END 2024-06-05 14:19 | disposition home or self-care (01) ==
LOC: US 14:18
PROVIDERS: PCP Family Medicine; Visit Provider Family Medicine
DX: M25.572 Pain in left ankle and joints of left foot (principal); M77.32 Calcaneal spur, left foot
CPT/HCPCS: 93971

== ENCOUNTER 2024-07-31 15:23 | Outpatient (CLI) | payer OTHER, SELFPAY ==
--- OUTSIDE RECORDS SUMMARY | 2024-07-31 15:25 | XMS_ITS | Clinical Summary ---
Author Organization [facility] Address [address] [place] [address] Care Team Providers Care Senior Design Engineering Specialist Name Role Phone Jossue Chapin MD Primary Care Provider [phone]- [phone] Source Comments You are receiving this document as you are listed as the primary care provider,follow-up provider, or the patient has been referred to you for consultation.This is in compliance with the Medicare and[facility] EHR Incentive Program,which states Providers who transition their patient to another setting of careor provider of care or refers their patient to another provider of care shouldprovide summary care record for each transition of care or referral. [facility] Allergies Active Allergy Reactions Criticality Noted Date [...] polyp 02/22/2013 Overweight 02/22/2013 Overview (05/11/2017): Overweight(278.02) ([facility]) Anemia 04/07/2012 Diarrhea 04/07/2012 Diverticulitis of colon with perforation 012 Asthma 02/23/2003 Overview (05/11/2017): Asthma NOS Esophageal reflux 02/23/2003 Overview (05/11/2017): Gastroesophageal Reflux Disease Allergic rhinitis 02/23/2003 Overview (05/11/2017): Rhinitis Allergic NOS Immunizations Name Administration Dates Next Due Flu Vac Preserv Free (3+yrs) 07/22/2011, 07/14/2010,06/13/2009,2006,09/15/2006 Influenza IIV4 (Quadrivalent ) 0.5mL (21483) 07/05/2017,07/29/2016 Influenza, Unspecified Formulation 06/13/1998 PPSV23 (Pneumovax) [...] 98.9 kg (218 lb) 11/22/2023 8:09 AM LOGISTICAL ENGINEER p t reported Height 182.9 cm (6') 11/22/2023 8:09 AM LOGISTICAL ENGINEER pt r eported Body Mass Index 29.57 11/22/2023 8:09 AM LOGISTICAL ENGINEER Plan of Treatment Health Maintenance Due Date [...] on patient's age to complete this topic Infant RSV Aged Out No longer eligi ble based on patient's age to complete this topic MCV4 Aged Out No longer eligi ble based on patient's age to complete this topic Procedures Procedure Name Priority Date/Time Associated Diagnosis Comments LIPID PANEL & DIRECT LDL (IF NEEDED) Routine 06/15/2007 9:22 AM CDT from Last 3 Months or Most Recently Relevant to Health Maintenance Results * (ABNORMAL) Lipid Panel and Direct LDL(If [...] 10:27 PM 04/08/2012 5:55 PM Care Teams Senior Design Engineering Specialist Relationship Specialty Start Date End Date Jossue Chapin MD [address] [place] [address] PCP - General 09/26/18
--- OUTSIDE RECORDS SUMMARY | 2024-07-31 15:25 | XMS_ITS | Encounter Summary ---
Author Organization [employer] Address [address] [place] [address] Care Team Providers Care Council Member Name Role Phone Jossue Chapin MD Primary Care Provider [phone]- [phone] Reason for Visit * Reason Comments Follow-up Asthma Encounter Details Date Type Department Care Team (Late st Contact Info) Description 04/24/2024 8:10 AM CDT Office Visit [facility] [address] [place], [place] [id number] Brenda Copeland MD [address] [place] [address] Encounter for pulmonary function testing [...] in polyps. Sees Dr. Rucker, ENT in [place]. LUNGS: No problems. 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 PHYSICAL EXAM: BP (!) 144/95 [...] 3.63 PN BREEZE FEV1-%Pred 89 PN BREEZE [id number] 77 PN BREEZE [id number] Pre 78 PN BREEZE [id number]-%PRED-P RE 100 PN BREEZE FEFMAX-PRED 10.09 PN BREEZE FEFMAX-PRE 11.51 PN BREEZE FEFMAX-%PRED-[place] E 114 PN BREEZE [id number] 3.48 PN BREEZE [id number] 3.01 PN BREEZE [id number]-%PRED-P RE 86 PN BREEZE 04/24/2024 8:06 AM CDT Brenda Copeland MD PN PFT ORDERABLES PN BREEZE documented in this encounter Visit Diagnoses Diagnosis Encounter for pulmonary function testing- Primary Other specified examination Moderate persistent asthma, unspecified whether complicated (HRC) Chronic sinusitis, unspecified location Allergic rhinitis, unspecified seasonality, unspecified trigger documented in this encounter Care Teams Council Member Relationship Specialty Start Date End Date Jossue Chapin MD [address] [place] [address] PCP - General 09/26/18 documented as of this encounter
--- OUTSIDE RECORDS SUMMARY | 2024-07-31 15:25 | XMS_ITS | Clinical Summary ---
Author Organization [employer] [facility] Address [place], [place] [address] Care Team Providers Care Tutoring Clinician Name Role Phone Santino Sauceda MD Primary Care Provider [phone] Allergies Active Allergy Reactions Criticality Noted Date [...] Comments Blood Pressure 162/92 10/22/2020 1:54 PM COMMERCIAL LOAN CLOSER Pulse 74 10/22/2020 1:54 PM COMMERCIAL LOAN CLOSER Temperature - - Respiratory Rate 16 05/27/2017 10:3 6 AM CDT Oxygen Saturation 97% 10/22/2020 1:54 PM COMMERCIAL LOAN CLOSER Inhaled Oxygen Concentration - - Weight 105.1 kg (231 lb 11.2 oz) 10/22/2020 1:54 PM COMMERCIAL LOAN CLOSER Height 182.9 cm (6') 11/21/2019 10:00 AM COMMERCIAL LOAN CLOSER Body Mass Index 31.42 11/21/2019 10:00 AM COMMERCIAL LOAN CLOSER Plan of Treatment Health Maintenance Due Date [...] age 18+ 11/20/2020 11/21/2019 COVID-19 vaccine series (2023- season) 2024 12/06/2020 Influenza for age 50-64 05/20/2024 Pneumococcal series for age 6-64 Aged Out No longer eligible based on patient's age to complete this topic Care Teams Tutoring Clinician Relationship Specialty Start Date End Date Santino Sauceda MD [address] [place] [address] PCP - General Family Practice 10/22/20
--- OUTSIDE RECORDS SUMMARY | 2024-07-31 15:26 | XMS_ITS ---
Author Organization [facility] Address [address] [place] [address] Care Team Providers Care Rehabilitation Program Coordinator Name Role Phone Unavailable Unavailable Unavailable Surgery Details Not on file Complications Check Surgery Details section. Procedure Estimated Blood Loss Check Surgery Details section. Procedure Findings Check Surgery Details section. Procedure Specimens Taken Check Surgery Details section.
--- OUTSIDE RECORDS SUMMARY | 2024-07-31 15:26 | XMS_ITS | Clinical Summary ---
Author Organization [facility] Address [address] [place] [address] Care Team Providers Care Grader Patrol Name Role Phone Unavailable Primary Care Provider Unavailabl e Source Comments Patient records contain information from all sites at [facility]. For routine questions regarding patient records, call [phone] during business hours, M-F 8:00 AM - 5:00 PM Central Time. Record requests for emergency care only can be directed to [phone] at any time.[facility] Allergies Active Allergy Reactions Criticality Noted Date Comments Corticosteroids (Glucocorticoids) GI bleeding 04/29/2017 Levofloxacin GI intolerance 12/19/2006 PN: LW Reaction: internal bleeding Prednisone GI intolerance 12/19/2006 PN: LW Reaction: internal bleeding Quinolones GI intolerance 04/29/2017 Medications albuterol (for_PROVENTIL HFA,VENTOLIN HFA) 90 mcg/actuation inhaler Inhale 2 puffs. 7 Active amLODIPine (for_NORVASC) 5 mg tablet Take 5 mg by mouth. 7 Active fluticasone (for_FLONASE) 50 mcg/actuation nasal spray 2 sprays. 7 Active fluticasone-marcus meterol (for_ADVAIR DISKUS) 250-50 mcg/dose diskus inhaler Inhale 1 puff. 7 Active lisinopril (for_PRINIVIL,Z ESTRIL) 20 mg tablet Take 20 mg by mouth. 7 Active lisdexamfetamin e (VYVANSE) 20 mg capsule Take 20 mg [...] Recorded Sex Assigned at Not on file Legal Sex Male 4:53 PM ORAL AND MAXILLOFACIAL SURGERY Gender Identity Not on file Sexual Orientation [...] 19+ 3-dose series) 1989 Pneumococcal vaccine (0-64 years) (2 of 2 - PCV) 01/25/2015 01/25/2014, 05/09/1998 Zoster Vaccines (1 of 2) 2020 Depression Screening (Annual PHQ-2) 09/19/2023 Creatinine Level (Kidney Function Test) 05/13/2024 05/13/2023, 01/29/2019, 08/25/2017 Potassium Level 05/13/2024 05/13/2023, 01/17, 08/25/2017 Sodium Level 05/13/2024 05/13/2023, 01/17, 08/25/2017 COVID-19 Vaccine ( season) 2024 07/08/2023, 07/15/2022, 04/05/2022, Additional history exists Influenza Vaccine (#1) 2024 , 07/15/2022, 07/14/2021, Additional history exists Fasting Glucose for Diabetes Screening 05/13/2026 05/13/2023, 01/29/2019, 08/25/2017 DTaP,Tdap,and Td Vaccines (3 - Td or Tdap) 01/07/2027 01/07/2017, 06/15/2007 IPV Vaccines Aged Out No longer eligi ble based [...] 7:56 PM CDT 05/13/2023 7:59 PM CDT us Yeimi Maria D.O. LAB BLOOD ADD-ON Final Result [facility] [address] [place] [address], [facility] NPRG [facility] [address] [place] [address] from Last 3 Months or Most Recently Relevant to [place] [id number] [facility]
--- OUTSIDE RECORDS SUMMARY | 2024-07-31 15:26 | XMS_ITS | Referral Summary ---
Author Organization [facility] Address [address] [place] [address] Care Team Providers Care Oncology Nurse Name Role Phone Unavailable Primary Care Provider Unavailabl e Source Comments Patient records contain information from all sites at [facility]. For routine questions regarding patient records, call [phone] during business hours, M-F 8:00 AM - 5:00 PM Central Time. Record requests for emergency care only can be directed to [phone] at any time.[facility] Allergies Active Allergy Reactions Criticality Noted Date [...] on file Legal Sex Male 4:53 PM CLEANER LABORATORY EQUIPMENT Gender Identity Not on file Sexual Orientation [...] Maria D.O. LAB BLOOD ADD-ON Final Result [facility] [address] [place] [address], [facility] NPRG [facility] [address] [place] [address] from Last 3 Months or Most Recently Relevant to Health Maintenance Insurance [facility]
== END 2024-07-31 15:24 | disposition home or self-care (01) ==
LOC: NFLDREF 15:24
PROVIDERS: PCP Family Medicine; Visit Provider Family Medicine
DX: Z01.818 Encounter for other preprocedural examination (principal); I10 Essential (primary) hypertension
CPT/HCPCS: 80048

== ENCOUNTER 2024-08-17 08:57 | Day surgery (SDC) | payer OTHER, SELFPAY ==
[2024-08-17] VITALS (13 sets, daily range): BP systolic 118–141; BP diastolic 69–93; PULSE 51–81; RESP 13–18; TEMP 35.9–36.4; O2SAT 92–99; BMI 30.2
[2024-08-17] MEDS: OXYMETAZOLINE 0.05% NASAL SPRAY 2 SPRAY NOSTRIL-B (09:00)
--- OUTSIDE RECORDS SUMMARY | 2024-08-17 09:00 | XMS_ITS | Clinical Summary ---
Author Organization [employer] [facility] Address [place], [place] [address] Care Team Providers Care Nitric Acid Plant Operator Name Role Phone Santino Sauceda MD Primary Care Provider [phone] Allergies Active Allergy Reactions Criticality Noted Date [...] Comments Blood Pressure 162/92 10/22/2020 1:54 PM BROKERAGE PURCHASE AND SALE CLERK Pulse 74 10/22/2020 1:54 PM BROKERAGE PURCHASE AND SALE CLERK Temperature - - Respiratory Rate 16 05/27/2017 10:3 6 AM CDT Oxygen Saturation 97% 10/22/2020 1:54 PM BROKERAGE PURCHASE AND SALE CLERK Inhaled Oxygen Concentration - - Weight 105.1 kg (231 lb 11.2 oz) 10/22/2020 1:54 PM BROKERAGE PURCHASE AND SALE CLERK Height 182.9 cm (6') 11/21/2019 10:00 AM BROKERAGE PURCHASE AND SALE CLERK Body Mass Index 31.42 11/21/2019 10:00 AM BROKERAGE PURCHASE AND SALE CLERK Plan of Treatment Health Maintenance Due Date [...] age to complete this topic Care Teams Nitric Acid Plant Operator Relationship Specialty Start Date End Date Santino Sauceda MD [address] [place] [address] PCP - General Family Practice 10/22/20
--- OUTSIDE RECORDS SUMMARY | 2024-08-17 09:00 | XMS_ITS | Referral Summary ---
Author Organization [facility] Address [address] [place] [address] Care Team Providers Care Underwriting Technician Name Role Phone Unavailable Primary Care Provider Unavailabl e Source Comments Patient records contain information from all sites at [facility]. For routine questions regarding patient records, call [phone] during business hours, M-F 8:00 AM - 5:00 PM Central Time. Record requests for emergency care only can be directed to [phone] at any time.[facility] Allergies Active Allergy Reactions Criticality Noted Date [...] on file Legal Sex Male 4:53 PM BRAKE HOLDER Gender Identity Not on file Sexual Orientation Not on file Last Filed Vital Signs Vital Sign Reading Time Taken Comments Blood Pressure 131/78 05/13/2023 9:00 PM CDT Pulse 78 05/13/2023 9:00 PM CDT Temperature 37.1 C (98.8 F) 05/13/2023 9:00 PM CDT Respiratory Rate 16 05/13/2023 9:00 PM CDT [...] Maria D.O. LAB BLOOD ADD-ON Final Result [facility] [address] [place] [address], [facility] NPRG [facility] [address] [place] [address] from Last 3 Months or Most Recently Relevant to Health Maintenance Insurance [facility]
--- OUTSIDE RECORDS SUMMARY | 2024-08-17 09:00 | XMS_ITS | Clinical Summary ---
Author Organization [facility] Address [address] [place] [address] Care Team Providers Care Body Trimmer Name Role Phone Jossue Chapin MD Primary Care Provider [phone]- [phone] Source Comments You are receiving this document as you are listed as the primary care provider,follow-up provider, or the patient has been referred to you for consultation.This is in compliance with the Medicare and[facility] E[facility] Incentive Program,which states Providers who transition their patient to another setting of careor provider of care or refers their patient to another provider of care shouldprovide summary care record for each transition of care or referral. [facility] Allergies Active Allergy Reactions Criticality Noted Date [...] polyp 02/22/2013 Overweight 02/22/2013 Overview (05/11/2017): Overweight(278.02) ([facility]) Anemia 04/07/2012 Diarrhea 04/07/2012 Diverticulitis of colon with perforation 012 Asthma 02/23/2003 Overview (05/11/2017): Asthma NOS Esophageal reflux 02/23/2003 Overview (05/11/2017): Gastroesophageal Reflux Disease Allergic rhinitis 02/23/2003 Overview (05/11/2017): Rhinitis Allergic NOS Immunizations Name Administration Dates Next Due Flu Vac Preserv Free (3+yrs) 07/22/2011, 07/14/2010,06/13/2009,2006,09/15/2006 Influenza IIV4 (Quadrivalent ) 0.5mL (02059) 07/05/2017,07/29/2016 Influenza, Unspecified Formulation 06/13/1998 PPSV23 (Pneumovax) [...] 61 04/24/2024 8:13 AM CDT Temperature 36.6 C (97.9 F) 02/22/2013 8:59 AM CDT Respiratory Rate 16 02/22/2013 8:59 AM CDT Oxygen Saturation 99% 04/24/2024 8:13 AM CDT Inhaled Oxygen Concentration - - Weight 98.9 kg (218 lb) 11/22/2023 8:09 AM CLUB WAITER/WAITRESS p t reported Height 182.9 cm (6') 11/22/2023 8:09 AM CLUB WAITER/WAITRESS pt r eported Body Mass Index 29.57 11/22/2023 8:09 AM CLUB WAITER/WAITRESS Plan of Treatment Health Maintenance Due Date [...] 10:27 PM 04/08/2012 5:55 PM Care Teams Body Trimmer Relationship Specialty Start Date End Date Jossue Chapin MD [address] [place] [address] PCP - General 09/26/18
--- OUTSIDE RECORDS SUMMARY | 2024-08-17 09:00 | XMS_ITS | Clinical Summary ---
Author Organization [facility] Address [address] [place] [address] Care Team Providers Care Caseworker Protective Services Name Role Phone Unavailable Primary Care Provider Unavailabl e Source Comments Patient records contain information from all sites at [facility]. For routine questions regarding patient records, call [phone] during business hours, M-F 8:00 AM - 5:00 PM Central Time. Record requests for emergency care only can be directed to [phone] at any time.[facility] Allergies Active Allergy Reactions Criticality Noted [...] on file Legal Sex Male 4:53 PM DISPLAY SPECIALIST Gender Identity Not on file Sexual Orientation [...] CDT Yeimi Maria D.O. LAB BLOOD ADD-ON Final Result [facility] [address] [place] [address], [facility] NPRG [facility] [address] [place] [address] from Last 3 Months or Most Recently Relevant to Health Maintenance Insurance [employer]
--- OUTSIDE RECORDS SUMMARY | 2024-08-17 09:00 | XMS_ITS ---
Author Organization [facility] Address [address] [place] [address] Care Team Providers Care Travel Med Surg Rn Name Role Phone Unavailable Unavailable Unavailable Surgery Details Not on file Complications Check Surgery Details section. Procedure Estimated Blood Loss Check Surgery Details section. Procedure Findings Check Surgery Details section. Procedure Specimens Taken Check Surgery Details section.
[2024-08-17] MEDS: 0.9 % SODIUM CHLORIDE 500 ML 500 ML 100 ML IV (09:30)
[2024-08-17] MEDS: SODIUM CHLORIDE 0.9 % (FLUSH) 10 ML SYRINGE IVF (09:30)
[2024-08-17] MEDS: COCAINE HCL 4 % 4 ML SOLUTION NOSTRIL-B (10:04)
[2024-08-17] MEDS: BUPIVACAINE 0.5%/EPINEPHRINE 0.9 MG (30.9 ML) INJECTION (10:15)
[2024-08-17] MEDS: AYR SALINE NASAL GEL 1 APPLIC NOSTRIL-B (10:16)
--- NOTE | 2024-08-17 10:21 | W.PM.ENTPROC ---
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 Note that image guidance was used Under general tracheal anesthesia patient was prepped draped usual fashion nose decongested with cocaine soaked pledgets. The ethmoid bulla was also injected. There is a large a patent antrostomy that was partially occluded by polypoid mucosa. This was removed in a large amount of polypoid mucosa removed from the floor and superior and lateral evans of the maxillary sinus. Image guidance was used to carefully avoid going superior and the ethmoid is there is a potential history of previous CSF leak. I did remove although inferior visible polypoid tissue. This was from the anterior ethmoid sinus. The posterior ethmoid was open. The patient procedure well was taken recovery in satisfactory condition blood loss was 15 mL. Surgeon: Tyron Rucker MD
[2024-08-17] MEDS: MUPIROCIN 1 GM PACKET 1 APPLIC TOPICAL (10:22)
--- NOTE | 2024-08-17 10:37 | W.ANESCHARGE ---
Anesthesia Charges Start Date/Time Anesthesia Start Date: 08/17/24 Anesthesia Start Time: 09:47 Stop Date/Time Anesthesia Stop Date: 08/17/24 Anesthesia Stop Time: 10:34
--- NOTE | 2024-08-17 10:46 | W.ANESCHARGE ---
Anesthesia Charges Start Date/Time Anesthesia Start Date: 08/17/24 Anesthesia Start Time: 09:47 Stop Date/Time Anesthesia Stop Date: 08/17/24 Anesthesia Stop Time: 10:34
--- NOTE | 2024-08-17 11:05 | SUR.PHASEI ---
patient met discharge criteria per anesthesia
== END 2024-08-17 12:30 | disposition home or self-care (01) ==
LOC: OR 08:58
PROVIDERS: PCP Family Medicine; Visit Provider Otolaryngology
PROC: (CPT 31231; principal; 2024-08-17 10:00)
DX: J32.0 Chronic maxillary sinusitis (principal); J33.8 Other polyp of sinus; J32.2 Chronic ethmoidal sinusitis
CPT/HCPCS: 31267; 31254; 00160; 88305; A9270; J1100; J1630; J2250; J2405; J2704; J3010; J7030

== ENCOUNTER 2024-09-10 07:38 | Outpatient (CLI) | payer OTHER, SELFPAY | END 2024-09-10 07:39 | disposition home or self-care (01) | LOC: NFLDREF 11:07 | PROVIDERS: PCP Family Medicine; Referring Provider Family Medicine; Visit Provider Family Medicine | DX: I10 Essential (primary) hypertension (principal); E78.5 Hyperlipidemia, unspecified; Z12.5 Encounter for screening for malignant neoplasm of prostate | CPT/HCPCS: 80053; 80061; G0103 ==

== ENCOUNTER 2024-12-12 15:17 | Outpatient (CLI) | payer OTHER, SELFPAY ==
--- NOTE | 2024-12-12 15:30 | CRLHL7_ITS ---
For Patients: As a result of the Century Cures Act, medical imaging exams and procedure reports are released immediately into your electronic medical record. You may view this report before your referring provider. If you have questions, please contact your health care provider. INDICATION: Right shoulder pain. COMPARISON: None. TECHNIQUE: Sagittal T1, T2, and STIR sequences. Axial T2/gradient sequences. FINDINGS: Normal vertebral body facet alignment. No fractures. No vertebral body loss of height. No spondylolisthesis. No ligamentous injury. No suspicious osseous lesions. Normal cord signal. No intradural mass or lesion. C1-2: No spinal canal narrowing. C2-3: No spinal canal neural foraminal narrowing. C3-4: Disc generation posted disc bulging disc osteophyte complex. Mild narrowing of spinal canal. Mild narrowing of the left neural foramen. No narrowing of the right neural foramen. C4-5: No narrowing of the spinal canal. Mild narrowing of the left neural foramen. No narrowing of the right neuroforamen. C5-6: Disc degeneration and posterior disc bulge or disc osteophyte complex. Mild narrowing of the spinal canal. Mild right and moderate left neural foraminal narrowing. C6-7: Disc generation posted disc bulge. No spinal canal neural foraminal narrowing. C7-T1: No spinal canal neural foraminal narrowing. No splenic no neural foraminal narrowing the visualized upper thoracic spine. IMPRESSION: 1. Normal alignment. No fractures. 2. Normal cord signal. 3. At C3-4, mild narrowing of the spinal canal and left neural foramina 4. At C4-5, mild narrowing of the left neural foramen 5. At C5-6, mild right and moderate left neural foraminal narrowing. Dictated by Finn Lynn MD @ 12/13/2024 9:05:50 AM (Electronically Signed)
== END 2024-12-12 15:18 | disposition home or self-care (01) ==
LOC: MRI 15:18
PROVIDERS: PCP Family Medicine; Visit Provider Family Medicine
DX: M25.511 Pain in right shoulder (principal); M50.21 Other cervical disc displacement, high cervical region; M50.221 Other cervical disc displacement at C4-C5 level; M50.223 Other cervical disc displacement at C6-C7 level; R20.0 Anesthesia of skin
CPT/HCPCS: 72141

== ENCOUNTER 2025-01-03 08:07 | Outpatient (CLI) | payer OTHER, SELFPAY | END 2025-01-03 08:08 | disposition home or self-care (01) | LOC: NFLDREF 01-06 13:26 | PROVIDERS: PCP Family Medicine; Referring Provider Family Medicine; Visit Provider Family Medicine | DX: E78.5 Hyperlipidemia, unspecified (principal); R53.83 Other fatigue; L65.9 Nonscarring hair loss, unspecified | CPT/HCPCS: 80053; 80061; 84403; 84443 ==

== ENCOUNTER 2025-01-22 18:34 | Emergency (ER) | payer OTHER, SELFPAY ==
--- OUTSIDE RECORDS SUMMARY | 2025-01-22 18:37 | XMS_ITS | Encounter Summary ---
Author Organization [facility] Address [address] [place] [address] Care Team Providers Care Auto Service Dispatcher Name Role Phone Jossue Chapin MD Primary Care Provider [phone] Reason for Visit * Reason Comments Refill WIXELA INHUB 250-50 MCG/ACT diskus inhaler [Pharmacy Med Name: WIXELA INHUB DISKUS 250/50MCG 60S] Encounter Details Date Type Department Care Team (Late st Contact Info) Description 12/18/2024 Refill [facility] [address] [place] [address] Brenda Copeland MD [address] [place] [address] Refill (WIXELA INHUB 250-50 MCG/ACT diskus inhaler [Pharmacy Med Name: WIXELA INHUB DISKUS 250/50MCG 60S]) Social History Tobacco Use Types Packs/Day Years Used Date Smoking Tobacco: Former Cigarettes Q uit: 1990 Smokeless Tobacco: Never Alcohol Use Standard Drinks/Week Comments Yes 3 (1 standard drink = 0.6 oz pur e alcohol) Sex and Gender Information Value Date Recorded Sex Assigned at Not on file Legal Sex Male 10:41 AM CDT Gender Identity Not on file Sexual Orientation Not on file Occupation Industry Job Start Date Job End Date Not on file Not on file Not on file Not on file documented as of this encounter Nursing Notes * Jane Gillespie - 12/19/2024 10:19 AM CDT Pt returned call and reports that Nucala was discontinued as per discussion w/ PJYoel at last visit. Pt will f/u 04/29. He requests Wixela refill today. Wixela refill sent to [facility] today per SO. Note complete. * Odalis Dudley RN - 12/19/2024 9:42 AM CDT Provider [place]. LV: 04/24/24. MD plan: 1. F/U sinus CT scan with Dr. Rucker 2. Continue mepolizumab 100 mg sq every 4 weeks for now. 3. No other changes in medications for now. No refills needed 4. Return to clinic 6 months if mepolizumab is continue or 1 year if not. FV: Yes - Date: 04/29/25. Refill request for Wixela. Per Telephone note dated 11/22/23: Prior Authorization for Nucala Auto-injector approved through [employer] insurance. Approved under Pharmacy benefit for [facility]. Approval dates: 11/08/2024 through 05/08/2025 Upon chart review of Nucala order it appears most recent dispense 05/06/24. Called pt and left detailed message on [employer] to inquire if they are continuing with Nucala and if so would need f/u sooner. * Flaca Silva Xrwcomm - 12/18/2024 7:25 PM CDT WIXELA INHUB 250-50 MCG/ACT diskus inhaler [Pharmacy Med Name: WIXELA INHUB DISKUS 250/50MCG 60S] Medication started: 10/09/2019 Last ordered by BRENDA COPELAND: 09/10/2024 (99 days ago) QTY: 3, Refills: 0, Sig: inhale 1 puff by mouth twice daily. rinse mouth/gargle after use (changed but equivalent) -> A qualifying visit was not found within the last 2 years. Last qualifying visit: None Next scheduled visit: None [employer] Emb[employer]ded Refills, Reference: [id number], 12/18/2024 7:25:21 PM CDT, Pool: [id number] [facility] ([id number]) documented in this encounter Plan of Treatment Upcoming Encounters Date Type Department Care Team (Late st Contact [facility]) Description 04/29/2025 8:45 AM CDT Appointment [facility] [address] [place], [place] [address] Breathing Test, [facility] 04/29/2025 9:00 AM CDT Appointment [facility] [address] [place], [place] [address] Brenda Copeland MD [facility] [place], [place] [id number] documented as of this encounter Visit Diagnoses Not on filedocumented in this encounter Care Teams Auto Service Dispatcher Relationship Specialty Start Date End Date Jossue Chapin MD [address] [place] [address] PCP - General 09/26/18 documented as of this encounter
--- OUTSIDE RECORDS SUMMARY | 2025-01-22 18:37 | XMS_ITS | Clinical Summary ---
Author Organization [facility] Address [address] [place] [address] Care Team Providers Care Transmitter Engineer In Charge Name Role Phone Santino Sauceda MD Primary Care Provider [phone] Allergies Active Allergy Reactions Criticality Noted Date Comments Corticosteroids (Glucocorticoids) *Unknown Quinolones *Unknown 04/29/2017 Medications amLODIPine (NORVASC) 5 mg tabletIndication s:HTN (hypertension) Take 1 tablet by mouth once daily. 90 tablet 3 04/29/2017 Active lisinopril (PRINIVIL; ZESTRIL) 20 mg tabletIndication s:HTN (hypertension) Take 1 tablet by mouth once daily. 90 tablet 3 05/27/2017 Active budesonide (PULMICORT RESPULES) 0.5 mg/2 mL neb suspension Inhale 0.5 mg by mouth. 11/19/2019 Active VYVANSE 20 mg capsule 11/21/2019 Active fluticasone (50 mcg per actuation) nasal solution (FLONASE) 2 Sprays. 07/05/2017 Active fluticasone propion-salmeter oL (ADVAIR) 250-50 mcg/Dose diskus inhaler Inhale 1 Puff by mouth. 07/05/2017 Active escitalopram oxalate (LEXAPRO) 20 mg tablet TK 1/2 T PO D 11/17/2019 Active albuterol HFA 90 mcg/actuation inhaler Inhale 2 Puffs by mouth every 4 hours if needed. 07/05/2017 Active amoxicillin-clav ulanate 875-125 mg tablet (AUGMENTIN) Take 1 Tab by mouth. 11/19/2019 Active pentoxifylline (TRENTAL) 400 mg ER tabletIndication s:Peyronie's disease Take 1 tablet by mouth 2 times daily with meals. 60 tablet 11 10/22/2020 Active Social History Tobacco Use Types Packs/Day Years Used Date Smoking Tobacco: Former Smokeless Tobacco: Never Alcohol Use Standard Drinks/Week Comments Yes 0 (1 standard drink = 0.6 oz pur e alcohol) Sex and Gender Information Value Date Recorded Sex Assigned at Not on file Legal Sex Male 7:40 AM SERVOMECHANISM ASSEMBLER Gender Identity Not on file Sexual Orientation Not on file Obstetrics History Last Filed Vital Signs Vital Sign Reading Time Taken Comments Blood Pressure 162/92 10/22/2020 1:54 PM SERVOMECHANISM ASSEMBLER Pulse 74 10/22/2020 1:54 PM SERVOMECHANISM ASSEMBLER Temperature - - Respiratory Rate 16 05/27/2017 10:3 6 AM CDT Oxygen Saturation 97% 10/22/2020 1:54 PM SERVOMECHANISM ASSEMBLER Inhaled Oxygen Concentration - - Weight 105.1 kg (231 lb 11.2 oz) 10/22/2020 1:54 PM SERVOMECHANISM ASSEMBLER Height 182.9 cm (6') 11/21/2019 10:00 AM SERVOMECHANISM ASSEMBLER Body Mass Index 31.42 11/21/2019 10:00 AM SERVOMECHANISM ASSEMBLER Plan of Treatment Health Maintenance Due Date Last Done Comments Tdap 1981 Depression screening for age 12+ 1982 HIV for age 15-65 1985 Hepatitis C screening for age 18-79 1988 Tetanus booster 1990 Colonoscopy through age 75 2015 Lipids for age 45-75 2015 Pneumococcal series for age 50+ (1 of 1 - PCV) 020 Zoster (shingles) series for age 50+ (1 of 2) 07/20/20 20 BMI (ht and wt on same day) for age 18+ 11/20/2020 0 11/21/2019 COVID-19 vaccine series ( season) 4 12/06/2020 Influenza Vaccine (Season Ended) 2025 Insurance [facility] Care Teams Transmitter Engineer In Charge Relationship Specialty Start Date End Date Santino Sauceda MD [address] [place] [address] PCP - General Family Practice 10/22/20
--- OUTSIDE RECORDS SUMMARY | 2025-01-22 18:37 | XMS_ITS | Clinical Summary ---
[facility] Address [address] [place] [address] Care Team Providers Care Jewel Cupping Machine Operator Name Role Phone Jossue Chapin MD Primary Care Provider [phone] Source Comments You are receiving this document as you are listed as the primary care provider,follow-up provider, or the patient has been referred to you for consultation.This is in compliance with the Medicare and[facility],which states Providers who transition their patient to another setting of careor provider of care or refers their patient to another provider of care shouldprovide summary care record for each transition of care or referral. [employer] Allergies Active Allergy Reactions Criticality Noted Date Comments Corticosteroids Other, see comments 04/29/2017 Levofloxacin 12/19/2006 PN: LW Reaction: internal bleeding Prednisone 12/19/2006 PN: LW Reaction: internal bleeding Medications lisinopril (ZESTRIL) 5 MG tablet Take 1 Tablet (5 mg) by mouth daily. Active lisdexamfetami ne (VYVANSE) 50 MG capsule Take 1 Capsule (50 mg) by mouth daily. Active amLODIPine (NORVASC) 5 MG tablet Take 1 Tablet (5 mg) by mouth daily. Active MAGNESIUM OR Take 250 mcg by mouth. Active hydrocortisone 2.5 % cream MAGUI EXT AA BID 0 Active ketoconazole (NIZORAL) 2 % cream APPLY 1 APPLICATION TO FACIAL AREAS BID 0 Active chlorthalidone (HYGROTON) 25 MG tablet Take 0.5 Tablets (12.5 mg) by mouth daily. 3 Active Cyanocobalamin (VITAMIN B-12) 500 MCG tablet Take 1 Tablet (500 mcg) by mouth daily. Active lisdexamfetami ne (VYVANSE) 20 MG capsule Take 1 Capsule (20 mg) by mouth every morning. 4 Active albuterol 2.5 mg/3 mL, 0.083%, (PROVENTIL) nebulizer solution 1 Each (2.5 mg) by Nebulization route every 6 hours as needed. 180 mL 1 4 Active ALBUterol sulfate HFA 108 (90 Base) MCG/ACT inhaler Inhale 2 Puffs every 4 hours as needed. 18 g 1 4 Active budesonide (PULMICORT) 0.5 MG/2ML inhalation suspension Inhale 2 mL (0.5 mg) daily. Use with nasal saline rinse 180 mL 3 4 Active fluticasone propionate (FLONASE) 50 MCG/ACT nasal solution Place 2 Sprays into both nostrils daily. 48 g 3 4 Active Mepolizumab 100 MG/ML SOAJ Inject 1 mL (100 mg) subcutaneously every 4 weeks. 1 Each 6 4 Active fluticasone-sa lmeterol (WIXELA INHUB) 250-50 MCG/ACT diskus inhaler INHALE 1 PUFF BY MOUTH TWICE DAILY. RINSE MOUTH/. GARGLE AFTER USE 180 Each 1 5 Active Active Problems Problem Noted Date Diagnosed Date Psoriasis 09/01/2016 Right elbow pain 09/01/2016 Alopecia areata 09/01/2016 Chronic pain of both knees 09/01/2016 Nasal polyp 02/22/2013 Overweight 02/22/2013 Overview (05/11/2017): Overweight(278.02) ([facility]) Anemia 04/07/2012 Diarrhea 04/07/2012 Diverticulitis of colon with perforation 012 Asthma 02/23/2003 Overview (05/11/2017): Asthma NOS Esophageal reflux 02/23/2003 Overview (05/11/2017): Gastroesophageal Reflux Disease Allergic rhinitis 02/23/2003 Overview (05/11/2017): Rhinitis Allergic NOS Encounters Date Type Department Care Team Description 12/18/2024 Refill [facility] [address] [place], [place] [phone] Brenda Copeland MD Refill (WIXELA INHUB 250-50 MCG/ACT diskus inhaler [Pharmacy Med Name: WIXELA INHUB DISKUS 250/50MCG 60S]) from Last 3 Months Immunizations Immunization Administration Dates Next Due Flu Vac Preserv Free (3+yrs) 07/22/2011, 07/14/2010,06/13/2009,2006,09/15/2006 Influenza IIV4 (Quadrivalent ) 0.5mL (71387) 07/05/2017,07/29/2016 Influenza, Unspecified Formulation 06/13/1998 PPSV23 (Pneumovax) [...] file Not on file Not on file Last Filed Vital Signs Vital Sign Reading Time Taken Comments Blood Pressure 144/95 04/24/2024 8:13 AM CDT Pulse 61 04/24/2024 8:13 AM CDT Temperature 36.6 C (97.9 F) 02/22/2013 8:59 AM CDT Respiratory Rate 16 02/22/2013 8:59 AM CDT Oxygen Saturation 99% 04/24/2024 8:13 AM CDT Inhaled Oxygen Concentration - - Weight 98.9 kg (218 lb) 11/22/2023 8:09 AM CONSERVATION EDUCATOR p t reported Height 182.9 cm (6') 11/22/2023 8:09 AM CONSERVATION EDUCATOR pt r eported Body Mass Index 29.57 11/22/2023 8:09 AM CONSERVATION EDUCATOR Plan of Treatment Upcoming Encounters Date Type Department Care Team (Late st Contact Info) Description 04/29/2025 8:45 AM CDT Appointment [facility] [address] [place], [place] [phone] Breathing Test, [facility] 04/29/2025 9:00 AM CDT Appointment [facility] [address] [place], [place] [address] Brenda Copeland MD [facility] [place], [place] [phone] Health Maintenance Due Date Last Done Comments Colon Cancer Screening Plan Due 1970 Hep C Screening (Preventive Services) 1970 PSA Screening Discussion 1970 HIV Screening (Preventive Services) 1986 Adult Preventive Visit 1988 HepB Vaccine (1) 1989 Cholesterol 06/15/2012 06/15/2007 Pneumococcal Vaccine 50+ Yrs (2 of 2 - PCV) 01/25/2015 01/25/2014, 05/09/1998 DTaP/Tdap/Td Vaccine (2 - Tdap) 06/15/2017 06/15/2007 Zoster/Shingles Vaccine (2 of 2) 02/06/2024 12/12/2023 COVID-19 Vaccine ( season) 2024 07/08/2023, 07/15/2022, 04/05/2022, Additional history exists Influenza Vaccine (Season Ended) 2025 07/08/2023, 07/15/2022, 07/14/2021, Additional history exists HepA Vaccine Aged Out No longer eligi ble based on patient's age to complete this topic Hib Vaccine Aged Out No longer eligi ble based on patient's age to complete this topic IPV (Polio) Vaccine Aged Out No longe r eligible based on patient's age to complete this topic MCV4 Vaccine Aged Out No longer eligi ble based on patient's age to complete this topic Meningococcal B Vaccine Aged Out No l onger eligible based on patient's age to complete [...] HP CONVERSION Comment: 06/15/2007 9:22 AM CDT us Laci Hall MD LAB_1 Final Resul t HP CONVERSION from Last 3 Months or Most Recently Relevant to Health Maintenance Insurance [facility] Advance Directives * Full Code (Latest Code Status on File) Date Activated Date Inactivated Comments 04/05/2012 10:27 PM 04/08/2012 5:55 PM Care Teams Jewel Cupping Machine Operator Relationship Specialty Start Date End Date Jossue Chapin MD [address] [place] [address] PCP - General 09/26/18
--- OUTSIDE RECORDS SUMMARY | 2025-01-22 18:37 | XMS_ITS | Clinical Summary ---
Author Organization [facility] Address [address] [place] [address] Care Team Providers Care Microfiche Duplicator Name Role Phone Unavailable Primary Care Provider Unavailabl e Source Comments Patient records contain information from all sites at [facility]. For routine questions regarding patient records, call [phone] during business hours, M-F 8:00 AM - 5:00 PM Central Time. Record requests for emergency care only can be directed to [phone] at any time.[facility] Allergies Active Allergy Reactions Criticality Noted [...] on file Legal Sex Male 4:53 PM WINTERIZER Gender Identity Not on file Sexual Orientation [...] - 19+ 3-dose series) 1989 Pneumococcal vaccine (50+ years) (2 of 2 - PCV) 01/25/2015 01/25/2014, 05/09/1998 Zoster Vaccines (1 of 2) 2020 Creatinine Level (Kidney Function Test) 05/13/2024 05/13/2023, 01/29/2019, 08/25/2017 Potassium Level 05/13/2024 05/13/2023, 01/17, 08/25/2017 Sodium Level 05/13/2024 05/13/2023, 01/17, 08/25/2017 COVID-19 Vaccine ( season) 2024 07/08/2023, 07/15/2022, 04/05/2022, Additional history exists Influenza Vaccine (#1) 2024 , 07/15/2022, 07/14/2021, Additional history exists Depression Screening (Annual PHQ-2) 09/19/2024 Fasting Glucose for Diabetes Screening 05/13/2026 05/13/2023, [...] Maria D.O. LAB BLOOD ADD-ON Final Result [facility] [address] [place] [address], [facility] NPRG [facility] [address] [place] [address] from Last 3 Months or Most Recently Relevant to Health Maintenance Insurance [facility]
[2025-01-22 18:40] VITALS: BP 146/87; PULSE 56; RESP 16; TEMP 37.2; O2SAT 98; BMI 29.4
--- NOTE | 2025-01-22 19:05 | ED_ITS ---
History of Present Illness General Chief Complaint: Epistaxis/Nosebleed Stated Complaint: Nose Bleed Time Seen by Provider: 01/22/25 18:40 History of Present Illness HPI Narrative: This 54-year-old male comes in reporting episodes of epistaxis over the past several days. He does have a history of polyp in the nasal cavity and has had a surgery related to that. He states that he has had some spontaneous nosebleeds on the right side and he has use direct pressure externally but feels like this might be a posterior bleed. Currently he is not reporting any symptoms of nose bleed. He states that he needs to travel next week and wants to see if there is some further treatment that can be done for him. Related Data Home Medications ?Medication ?Instructions ?Recorded ?Confirmed fluticasone 250 mcg-salmeterol 50 1 inh inhalation QDAY 06/18/22 01/22/25 mcg/dose blistr powdr for inhalation (Advair Diskus) Previous Rx's ?Medication ?Instructions ?Recorded albuterol sulfate 90 mcg/actuation 2 puff inhalation Q4-6H PRN 12/28/22 aerosol inhaler shortness of breath or wheezing #8.5 grams lisdexamfetamine 20 mg capsule 20 mg PO QAM #30 caps 12/27/24 (Vyvanse) amlodipine 5 mg tablet 5 mg PO QDAY #90 tabs 01/07/25 chlorthalidone 25 mg tablet 12.5 mg (1/2 x 25 mg) PO QDAY #45 01/07/25 tabs lisinopril 20 mg tablet 20 mg PO QDAY #90 tabs 01/07/25 Allergies Allergy/AdvReac Type Severity Reaction Status Date / Time Corticosteroids AdvReac Severe GI Bleed Verified 01/22/25 18:39 (Glucocorticoids) Quinolones AdvReac Severe GI Bleed Verified 01/22/25 18:39 Review of Systems Status of ROS: Reports: 10 or more systems reviewed and unremarkable except as noted in History and below Narrative: Constitutional: No fevers, no weight gain or loss. Eyes: No discharge. No vision changes. HENT: No congestion, no sore throat, no ear pain. Recurrent nose bleeds as described above. Cardiovascular: No chest pain, no palpitations. Respiratory: No shortness of breath, no wheezes, no cough. Gastrointestinal: No abdominal pain, no vomiting, no diarrhea. Genitourinary: No dysuria, no hematuria. Musculoskeletal: Normal range of motion. Skin: No rashes, no pruritis. Neurological: No dizziness, weakness, sensory change, speech change. Endo/Heme/Allergies: No bruising or bleeding. No polydipsia. Pysch: no suicidality, no anxiety, no insomnia. All other systems reviewed and are negative. [facility] Medical History (Updated 01/22/25 @ 19:09 by Cruz Cabrales MD) Sinusitis ?J32.9 - Chronic sinusitis, unspecified (ICD-10) Asthma (06/30/09) ?J45.909 - Unspecified asthma, uncomplicated (ICD-10) Attention deficit hyperactivity disorder (ADHD) ?F90.9 - Attention-deficit hyperactivity disorder, unspecified type (ICD-10) Disorder of paranasal sinus ?J34.9 - Unspecified disorder of nose and nasal sinuses (ICD-10) Diverticulitis of large intestine with perforation ?K57.20 - Diverticulitis of large intestine with perforation and abscess without bleeding (ICD-10) Ear problem ?H93.90 - Unspecified disorder of ear, unspecified ear (ICD-10) Gastroesophageal reflux disease (06/30/09) ?K21.9 - Gastro-esophageal reflux disease without esophagitis (ICD-10) Gout (04/13/12) ?M10.9 - Gout, unspecified (ICD-10) Hypertension ?I10 - Essential (primary) hypertension (ICD-10) Hyperlipidemia ?E78.5 - Hyperlipidemia, unspecified (ICD-10) Peyronie's disease ?N48.6 - Induration penis plastica (ICD-10) Polyp of nasal cavity (06/30/09) ?J33.0 - Polyp of nasal cavity (ICD-10) Tachycardia ?R00.0 - Tachycardia, unspecified (ICD-10) Polyp of paranasal sinus ?J33.8 - Other polyp of sinus (ICD-10) Sinus pain ?J34.89 - Other specified disorders of nose and nasal sinuses (ICD-10) Perforation of intestine (06/24/12) ?K63.1 - Perforation of intestine (nontraumatic) (ICD-10) Hypotension ?I95.9 - Hypotension, unspecified (ICD-10) Gastrointestinal hemorrhage ?K92.2 - Gastrointestinal hemorrhage, unspecified (ICD-10) Encounter for postoperative care ?Z48.89 - Encounter for other specified surgical aftercare (ICD-10) Diverticulitis of intestine (04/13/12) ?K57.92 - Diverticulitis of intestine, part unspecified, without perforation or abscess without bleeding (ICD-10) Surgical History History of partial colectomy (~2015) ?Z90.49 - Acquired absence of other specified parts of digestive tract (ICD- 10) Status post operation on paranasal sinus ?Z98.890 - Other specified postprocedural states (ICD-10) History of Robert fundoplication (1996) ?Z98.890 - Other specified postprocedural states (ICD-10) History of appendectomy (2015) ?Z90.49 - Acquired absence of other specified parts of digestive tract (ICD- 10) Social History (Updated 01/07/25 @ 07:01 by Adele Pina~[facility], [facility]) What is your current living situation?: I presently have a place to live Problems where you live: no known problems In the past 12 months, utilities in danger of being shut off: no In past 12 months, lack of transportation kept you from medical appts, meetings, work, or getting things needed for daily living: no In the past 12 mos, have been you worried that your food would run out before you had money to buy more?: never true In the past 12 mos, the food you bought just didn't last and you didn't have money to buy more?: never true Smoking Status: Former smoker Do you use any of these nicotine containing products: None Second hand tobacco smoke exposure: No How often do you have a drink containing alcohol: never How often do you have six or more drinks on one occasion: Never AUDIT-C Alcohol total score: 0 Non-prescribed substance use: denies use Caffeine: Yes (2 CUPS COFFE PER DAY) How often does anyone, including family, friends and others, physically hurt you : never How often does anyone, including family, friends and others, insult or talk down to you: never How often does anyone, including family, friends and others, threaten you with harm: never How often does anyone, including family, friends and others, scream or curse at you: never Exam Narrative: Exam Narrative: Constitutional: Well-developed, well-nourished, no acute distress. HEENT: Normocephalic, atraumatic. Right nostril is examined and shows no evidence of source of bleed or ongoing bleeding. Oropharynx also appears normal with no sign of blood draining down from his posterior pharynx. Neck: Normal range of motion. Nontender. Supple. Heart: Regular. No murmurs. Normal rate. Intact distal pulses. Lungs: Clear to auscultation. No chest discomfort. No wheezes, rhonchi, or rales. Abdomen: Normal bowel sounds. Nontender. No rebound tenderness. Genitalia: Deferred. Back: No midline tenderness. Normal range of motion. Extremities: Normal range of motion. No injury. Skin: Intact. No rash. Warm. No erythema or pallor. Neurologic: No altered sensation. No weakness. Alert and oriented. Psychiatric: No suicidality. No anxiety or depression. No insomnia. Nursing notes and vitals signs are reviewed. Const: Vital Signs, click to edit/add: Vital Signs - 24 hr 01/22/25 18:40 Temperature 98.9 F Pulse Rate [Pulse Oximeter] 56 L Respiratory Rate 16 Blood Pressure [Ri ght Upper Arm] 146/87 H Pulse Oximetry 98 Oxygen Delivery Me thod Room Air Course Vital Signs Vital signs: Initial Vital Signs Temperature 98.9 F 01/22/25 18:40 Temperature Source Temporal Artery Scan 01/22/25 18:40 Pulse Rate 56 L 01/22/25 18:40 Respiratory Rate 16 01/22/25 18:40 Blood Pressure 146/87 H 01/22/25 18:40 Blood Pressure Mean 106 H 01/22/25 18:40 Pulse Oximetry 98 01/22/25 18:40 Oxygen Delivery Method Room Air 01/22/25 18:40 Vital Signs Temperature 98.9 F 01/22/25 18:40 Pulse Rate 56 L 01/22/25 18:40 Respiratory Rate 16 01/22/25 18:40 Blood Pressure 146/87 H 01/22/25 18:40 Pulse Oximetry 98 01/22/25 18:40 Oxygen Delivery Method Room Air 01/22/25 18:40 Temperature 98.9 F 01/22/25 18:40 Pulse Rate 56 L 01/22/25 18:40 Respiratory Rate 16 01/22/25 18:40 Blood Pressure 146/87 H 01/22/25 18:40 Pulse Oximetry 98 01/22/25 18:40 Oxygen Delivery Method Room Air 01/22/25 18:40 MDM - Epistaxis MDM Narrative Medical decision making narrative: This patient is reporting recurrent nose bleeds but currently is not having any signs of active bleeding. Nor is there any sign of source of bleeding for what I was able to observe using a otoscope and speculum. I stated that it is likely to cause more trouble to put in some kind of rhino rocket or Merocel. I did give instructions regarding management of nose bleeds. He states that he has a blue nasal clamp that he can use at home. I have recommended Afrin for occasional use also if needed. Discharge Plan Discharge Clinical Impression: Epistaxis, recurrent Patient Disposition: Home, Self-Care Condition: Stable Additional Instructions: Use direct pressure if rebleeding occurs by using a nasal clamp. You may also use Afrin as needed and directed but do so sparingly. Follow-up with your nose and throat clinic or return if worsening symptoms occur. Prescriptions: No Action fluticasone propion-salmeterol [Advair Diskus] 250-50 mcg/dose blister with device 1 inh inhalation QDAY Patient Comments: INHALE 1 PUFF BY MOUTH TWICE DAILY. RINSE MOUTH /. GARGLE AFTER USE amlodipine 5 mg tablet 5 mg PO QDAY Qty: 90 3RF chlorthalidone 25 mg tablet 12.5 mg PO QDAY Qty: 45 3RF lisinopril 20 mg tablet 20 mg PO QDAY Qty: 90 3RF albuterol sulfate 90 mcg/actuation HFA aerosol inhaler 2 puff inhalation Q4-6H PRN (Reason: shortness of breath or wheezing) Qty: 8.5 1RF Vyvanse 20 mg capsule 20 mg PO QAM Qty: 30 0RF Follow Up/Referrals: Santino Sauceda MD [Primary Care Provider] - Stand Alone Forms[facility] Info Instructions
--- OUTSIDE RECORDS SUMMARY | 2025-01-22 19:07 | XMS_ITS | Clinical Summary ---
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 Gender Identity Not on file Sexual Orientation Not on file Obstetrics History Last Filed Vital Signs Vital Sign Reading Time Taken Comments Blood Pressure 162/92 10/22/2020 1:54 PM ELECTRICAL SIGN WIRER Pulse 74 10/22/2020 1:54 PM ELECTRICAL SIGN WIRER Temperature - - Respiratory Rate 16 05/27/2017 10:3 6 AM CDT Oxygen Saturation 97% 10/22/2020 1:54 PM ELECTRICAL SIGN WIRER Inhaled Oxygen Concentration - - Weight 105.1 kg (231 lb 11.2 oz) 10/22/2020 1:54 PM ELECTRICAL SIGN WIRER Height 182.9 cm (6') 11/21/2019 10:00 AM ELECTRICAL SIGN WIRER Body Mass Index 31.42 11/21/2019 10:00 AM ELECTRICAL SIGN WIRER Plan of Treatment Health Maintenance Due Date [...] 12/06/2020 Influenza Vaccine (Season Ended) 2025 Insurance [facility] Care Teams Airport Operations Supervisor Relationship Specialty Start Date End Date Santino Sauceda MD [address] [place] [address] PCP - General Family Practice 10/22/20
--- OUTSIDE RECORDS SUMMARY | 2025-01-22 19:07 | XMS_ITS | Encounter Summary ---
Author Organization [facility] Address [address] [place] [address] Care Team Providers Care Information Technology Professor Name Role Phone Jossue Chapin MD Primary Care Provider [phone]- [phone] Reason for Visit * Reason Comments Refill WIXELA INHUB 250-50 MCG/ACT diskus inhaler [Pharmacy Med Name: WIXELA INHUB DISKUS 250/50MCG 60S] Encounter Details Date Type Department Care Team (Late st Contact Info) Description 12/18/2024 Refill [facility] [address] [place] [address] Brenda Copeland MD [address] [place] [id number] Refill (WIXELA INHUB 250-50 MCG/ACT diskus [...] Wixela refill today. Wixela refill sent to [facility] today per SO. Note complete. * [...] Prior Authorization for Nucala Auto-injector approved through [employer] insurance. Approved under Pharmacy benefit for Specialty Pharm[facility]. Approval dates: 11/08/2024 through 05/08/2025 Upon chart review of Nucala order it appears most recent dispense 05/06/24. Called pt and left detailed message on [employer] to inquire if they are continuing with [...] visit: None [employer] Embedded Refills, Reference: [id number], 12/18/2024 7:25:21 PM CDT, Pool: [id number] [facility] ([id number]) documented in this encounter Plan of Treatment Upcoming Encounters Date Type Department Care Team (Late st Contact [facility]) Description 04/29/2025 8:45 AM CDT Appointment [facility] [address] [place], [place] [phone] Breathing Test, [facility] 04/29/2025 9:00 AM CDT Appointment [facility] [address] [place], [place] [phone] Brenda Copeland MD [facility] [place], [place] [id number] documented as of this encounter Visit Diagnoses Not on filedocumented in this encounter Care Teams Information Technology Professor Relationship Specialty Start Date End Date Jossue Chapin MD [address] [place] [address] PCP - General 09/26/18 documented as of this encounter
--- OUTSIDE RECORDS SUMMARY | 2025-01-22 19:07 | XMS_ITS | Clinical Summary ---
[facility] Organization [facility] Address [address] [place] [address] Care Team Providers Care It Support Technician Name Role Phone Jossue Chapin MD Primary Care Provider [phone]- [phone] Source Comments You are receiving this document as you are listed as the primary care provider,follow-up provider, or the patient has been referred to you for consultation.This is in compliance with the Medicare and[facility] EHR Incentive Program,which states Providers who transition their patient to another setting of careor provider of care or refers their patient to another provider of care shouldprovide summary care record for each transition of care or referral. [facility] Allergies Active Allergy Reactions Criticality Noted Date [...] polyp 02/22/2013 Overweight 02/22/2013 Overview (05/11/2017): Overweight(278.02) ([facility]) Anemia 04/07/2012 Diarrhea 04/07/2012 Diverticulitis of colon with perforation 012 Asthma 02/23/2003 Overview (05/11/2017): Asthma NOS Esophageal reflux 02/23/2003 Overview (05/11/2017): Gastroesophageal Reflux Disease Allergic rhinitis 02/23/2003 Overview (05/11/2017): Rhinitis Allergic NOS Encounters Date Type Department Care Team Description 12/18/2024 Refill [facility] [address] [place], [place] [phone] Brenda Copeland MD Refill (WIXELA INHUB 250-50 MCG/ACT diskus inhaler [Pharmacy Med Name: WIXELA INHUB DISKUS 250/50MCG 60S]) from Last 3 Months Immunizations Immunization Administration Dates Next Due Flu Vac Preserv Free (3+yrs) 07/22/2011, 07/14/2010,06/13/2009,2006,09/15/2006 Influenza IIV4 (Quadrivalent ) 0.5mL (76341) 07/05/2017,07/29/2016 Influenza, Unspecified Formulation 06/13/1998 PPSV23 (Pneumovax) [...] 98.9 kg (218 lb) 11/22/2023 8:09 AM NEWSPAPER INSERTER p t reported Height 182.9 cm (6') 11/22/2023 8:09 AM NEWSPAPER INSERTER pt r eported Body Mass Index 29.57 11/22/2023 8:09 AM NEWSPAPER INSERTER Plan of Treatment Upcoming Encounters Date Type Department Care Team (Late st Contact Info) Description 04/29/2025 8:45 AM CDT Appointment [facility] [address] [place], [place] [phone] Breathing Test, [facility] 04/29/2025 9:00 AM CDT Appointment [facility] [address] [place], [place] [phone] Brenda Copeland MD [facility] [place], [place] [address] Health Maintenance Due Date Last Done Comments [...] Most Recently Relevant to Health Maintenance Insurance [facility] Advance Directives * Full Code (Latest Code Status on File) Date Activated Date Inactivated Comments 04/05/2012 10:27 PM 04/08/2012 5:55 PM Care Teams It Support Technician Relationship Specialty Start Date End Date Jossue Chapin MD [address] [place] [address] PCP - General 09/26/18
--- OUTSIDE RECORDS SUMMARY | 2025-01-22 19:07 | XMS_ITS | Clinical Summary ---
Author Organization [facility] Address [address] [place] [address] Care Team Providers Care Insulator Cutter And Former Name Role Phone Unavailable Primary Care Provider Unavailabl e Source Comments Patient records contain information from all sites at [facility]. For routine questions regarding patient records, call [phone] during business hours, M-F 8:00 AM - 5:00 PM Central Time. 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 LAB BLOOD ADD-ON Final Result [facility] [address] [place] [address], [facility] [address] [place] [address] from Last 3 Months or Most Recently Relevant to Health Maintenance Insurance [facility]
== END 2025-01-22 19:22 | disposition home or self-care (01) ==
PROVIDERS: Emergency Provider Emergency Medicine Emergency Medical Services; PCP Family Medicine
DX: R04.0 Epistaxis (principal)
CPT/HCPCS: 99282; 99283; 99284